=== PATIENT | male | born 1940 | race Caucasian/White ===

== ENCOUNTER → 2020-03-02 | Outpatient (CLI) | payer MEDICARE ==
[2020-03-02 11:08] LABS: African American GFR (CKD) >90 (>60 ml/min/1.73 sqM); Anion Gap 6 mmol/L; Blood Urea Nitrogen 14 mg/dL (9-20); Carbon Dioxide 26 mmol/L (22-30); Chloride 105 mmol/L (98-107); Non-African American GFR(CKD) >90 (>60 ml/min/1.73 sqM); Potassium 4.6 mmol/L (3.5-5.1); Sodium 137 mmol/L (137-145)
[2020-03-02 11:10] LABS: Anisocytosis Moderate; HCT 36.6 % (39.0-53.0); HGB 11.9 gm/dL (13.0-17.5); Hypochromasia Slight; MCH 35.6 pg (25.0-35.0); MCHC 32.7 g/dL (31.0-37.0); MCV 108.9 fL (80.0-100.0); Macrocytosis Marked; Mean Platelet Volume 8.4; Platelet Count 411 k/uL (150-450); RBC 3.36 m/uL (4.30-5.90); WBC 6.2 k/uL (3.8-10.6)
== END | disposition home or self-care (01) ==
LOC: LABPAT 10:12
PROVIDERS: ATTEND Internal Medicine Interventional Cardiology
DX: Z01.812 Encounter for preprocedural laboratory examination (principal); I25.10 Atherosclerotic heart disease of native coronary artery without angina pectoris
CPT/HCPCS: 36415; 80051; 82565; 84520; 85027

== ENCOUNTER 2020-03-09 09:19 | Day surgery (SDC) | payer BC, MEDICARE ==
[2020-03-06 15:34] VITALS: BMI 27.3
[~2020-03-09 09:19] MED LIST: ALPRAZolam 0.25 MG TAB PO PRN; ALPRAZolam 0.5 MG TAB PO PRN; ASPIRIN 325 MG TAB PO STA; ATORVASTATIN 80 MG TAB PO STA; NITROGLYCERIN SL TABS 0.4 MG TAB SUBLINGUAL PRN; SODIUM CHLORIDE 0.9% 1,000 ML in EMPTY BAG 1 BAG IV ONE
[2020-03-09 09:45] VITALS: RESP 16; TEMP 97.9
[2020-03-09] MEDS ORDERED: LIDOCAINE 1% INJ 10MG/ML (20 ML MDV) ONE (10:51)
[2020-03-09] MEDS ORDERED: VERAPAMIL 2.5 MG/ML 2 ML AMP ONE (10:51)
[2020-03-09] MEDS ORDERED: MIDAZOLAM 2 MG/2 ML VIAL IVP ONE (11:00)
[2020-03-09] MEDS ORDERED: HEPARIN SODIUM 1,000 UN/ML (10ML VL) ONE (11:00)
[2020-03-09] MEDS ORDERED: LIDOCAINE 1% INJ 10MG/ML (20 ML MDV) SQ ONE (11:05)
[2020-03-09] MEDS: VERAPAMIL SYRINGE (5 MG/10 ML) INTRAARTER ONE ×2 (11:06→11:26)
[2020-03-09] MEDS ORDERED: HEPARIN SODIUM 1,000 UN/ML (10ML VL) IV ONE (11:07)
[2020-03-09] MEDS ORDERED: IOPAMIDOL-370 100ML BTL INJ ONE (11:25)
[2020-03-09] MEDS ORDERED: SODIUM CHLORIDE 0.9% 1,000 ML IV SCH (11:45)
[2020-03-09 13:18] VITALS: BP 142/76; PULSE 60
--- NOTE | 2020-03-09 14:20 | P.GSCN ---
History of Present Illness Consult date: 03/09/20 Reason for Consult: Coronary artery disease Requesting physician: Zee Knowles History of present illness: This is a 79-year-old active gentleman who follows in the outpatient setting with Dr. Mccurdy. He has a previous medical history of coronary artery disease with acute inferior wall myocardial infarction in February 2002 with subsequent bare metal stent placement to the RCA, hypertension, hyperlipidemia, previous tobacco dependence, and family history of premature coronary artery disease with mother having open heart surgery at 60 years old. He has been following with Dr. Knowles from [facility] with echocardiograms and stress test. His most recent stress test in February demonstrated a moderate area of sheila-infarct ischemia which was new. The patient reports he had no symptoms with the exception of decreased energy over the last month. He denied any chest pain, shortness of breath, nausea, vomiting, lightheadedness, dizziness, claudication, or any other symptoms. 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 He was recommended to undergo heart catheterization which was completed today and which demonstrated proximal LAD stenosis 80%, mid LAD stenosis 70%, circumflex stenos is 90%, and RCA stenosis 95%. Of note, he stopped taking his medication including aspirin, statin, beta branden therapy approximately a year ago. Consultation was placed to Dr. Olivo from cardiothoracic surgery for surgical revascularization. Review of Systems Review of systems was completed and was negative except as noted in the HPI Past Medical History Past Medical History: Coronary Artery Disease (CAD), Hyperlipidemia, Hypertension, Myocardial Infarction ([place]), Osteoarthritis (OA) Additional Past Medical History / Comment(s): Precancerous skin lesion removed. Last Myocardial Infarction Date:: 2001 History of Any Multi-Drug Resistant Organisms: None Reported Past Surgical History: Heart Catheterization With Stent, Hernia Repair, Joint Replacement, Tonsillectomy Additional Past Surgical History / Comment(s): Precancerous skin lesion removed, right knee replacement, cyst removed, bilateral cataracts removed. Bare-metal stent placed to the RCA in February 2002 Past Anesthesia/Blood Transfusion Reactions: No Reported Reaction Past Psychological History: No Psychological Hx Reported Smoking Status: Former smoker Past Alcohol Use History: Rare Additional Past Alcohol Use History / Comment(s): Quit smoking 30-35 yrs ago. Past Drug Use History: None Reported - Past Family History Father Family Medical History: Cancer Mother Family Medical History: Cancer, Coronary Artery Disease (CAD) Medications and Allergies Home Medications Medication Instructions Recorded Confirmed Type Antioxident 1 tab PO DAILY 03/06/20 03/09/20 History Multivitamins, Thera [Multivitamin 2 tab PO DAILY 03/06/20 03/09/20 History (formulary)] Tamsulosin [Flomax] 0.4 mg PO DAILY 03/06/20 03/09/20 History Allergies Allergy/AdvReac Type Severity Reaction Status Date / Time codeine Allergy Headache/brain Verified 03/06/20 15:35 swelling Surgical - Exam Vital Signs Temp Pulse Resp BP Pulse Ox 97.9 F 68 16 142/73 96 03/09/20 09:44 03/09/20 09:44 03/09/20 09:44 03/09/20 09:44 03/09/20 09:44 - General well developed, well nourished, no distress, no pain - Eyes PERRL, normal ocular movement - ENT no hearing loss - Neck no masses, no bruits, trachea midline - Respiratory Lungs sounds clear bilaterally. Respirations even, nonlabored. Currently on room air with oxygen saturation 96%. No chest wall deformities. No clubbing or cyanosis present. - Cardiovascular S1, S2 present. Regular rate and rhythm, sinus rhythm on telemetry. Palpable peripheral pulses bilaterally. No edema present. No calf pain or tenderness noted. Varicosities noted to bilateral lower extremities. Right radial heart catheterization site with T band in place. - Abdomen Abdomen: soft, non tender, bowel sounds - Genitourinary Deferred - Rectum Deferred - Integumentary no rash, no growths - Neurologic normal coordination, normal sensation - Musculoskeletal normal posture - Psychiatric oriented to time, oriented to person, oriented to place, speech is normal, memory intact Assessment and Plan Assessment: 1. Significant triple-vessel coronary artery disease 2. History of CAD with acute IWMI in February 2002, BMS placement to RCA 3. Hypertension 4. Hyperlipidemia 5. Previous tobacco dependence 6. Family history of premature coronary artery disease Plan: The patient was seen and examined in the extended stay unit. He was sitting up eating lunch having no distress whatsoever. Chart/diagnostics were reviewed. The usual perioperative course of open heart surgery was discussed in detail with the patient, all risks and benefits were reviewed, all questions were answered. The patient adamantly states he cannot have surgery until April as he is completely booked at work. The risk of waiting for surgery given the extensive nature of his coronary artery disease was discussed including the possibility of , the patient verbalizes understanding and continues to state he is not having surgery until at least April. We will obtain echocardiogram, carotid Dopplers, chest x-ray, and vein mapping. Recommend maximizing medication therapy with aspirin, statin, beta blockers. Will see the patient with Dr. Olivo and make further recommendations. Thank you Dr. Knowles for this consult, we look forward to working with you in the care of this patient. Time with Patient: Greater than 30
--- NOTE | 2020-03-09 14:42 | XR ---
EXAMINATION TYPE: XR chest 2V DATE OF EXAM: 03/09/2020 COMPARISON: NONE HISTORY: Shortness of breath TECHNIQUE: Frontal and lateral views of the chest are obtained. FINDINGS: Scattered senescent parenchymal changes noted. Hyperinflation compatible with COPD. No evidence for infiltrate. No evidence for atelectasis. Heart size is stable. Mediastinal structures are stable and grossly unremarkable. No evidence for hilar prominence. Degenerative changes dorsal spine. IMPRESSION: 1. No evidence for acute pulmonary disease.
--- NOTE | 2020-03-09 14:42 | US ---
EXAMINATION TYPE: US carotid duplex BILAT DATE OF EXAM: 03/09/2020 COMPARISON: NONE CLINICAL HISTORY: PRE CABG. pending open heart versus stenting, no h/o stroke EXAM MEASUREMENTS: RIGHT: Peak Systolic Velocity (PSV) cm/sec ----- Right CCA: 124 ----- Right ICA: 122 ----- Right ECA: 109 ICA/CCA ratio: 1.0 RIGHT: End Diastole cm/sec ----- Right CCA: 26 ----- Right ICA: 24 ----- Right ECA: 0 LEFT: Peak Systolic Velocity (PSV) cm/sec ----- Left CCA: 73.3 ----- Left ICA: 63.8 ----- Left ECA: 86.7 ICA/CCA ratio: 0.9 LEFT: End Diastole cm/sec ----- Left CCA: 18.5 ----- Left ICA: 19.1 ----- Left ECA: 12.8 VERTEBRALS (direction of flow): Right Vertebral: Antegrade Left Vertebral: Antegrade Rhythm: Normal Mild homogeneous plaque with no significant stenosis IMPRESSION: No evidence for hemodynamically significant stenosis. Criteria for Assigning % of Stenosis / Diameter reduction (Estimation based on the indirect measurements of the internal carotid artery velocities (ICA PSV). 1. Normal (no stenosis)=ICA PSV < 125 cm/s: ratio < 2.0: ICA EDV<40 cm/s. 2. Less than 50% stenosis=ICA PSV < 125 cm/s: ratio < 2.0: ICA EDV<40 cm/s. 3. 50 to 69% stenosis=ICA PSV of 125 to 230 cm/s: ration 2.0 ? 4.0: ICA EDV 40-100 cm/s. 4. Greater than 70% stenosis to near occlusion= ICA PSV > 230 cm/s: ratio > 4.0: ICA EDV > 100 cm/s. 5. Near occlusion= ICA PSV velocities may be low or undetectable: variable ratio and ICA EDV. 6. Total occlusion=unable to detect flow.
--- NOTE | 2020-03-09 15:32 | CC ---
CARDIAC CATHETERIZATION REPORT DATE OF SERVICE: 03/09/2020 PROCEDURE: Left heart catheterization, coronary angiography and left ventriculography. PERFORMED BY: Dr. Gianna Knowles. Moderate conscious sedation time was 23 minutes. Patient was administered Versed. Oxygen saturation, hemodynamics and EKG were monitored closely. CLINICAL INFORMATION: Mr. Anatoly Pereyra is a 79-year-old gentleman with a known history of CAD and hyperlipidemia. In February of 2002 he suffered from an acute inferior OH, received thrombolytic therapy and went on to have bare metal stenting of proximal RCA. Since then he had ejection fraction in the 45% to 50% range and has done well. Over the last few weeks he was having symptoms of exertional shortness of breath, chest tightness and decreased stamina. Stress test revealed a significant area of sheila-infarct ischemia in addition to a fixed defect in the inferior wall. Ejection fraction was in the 45% range. He was advised coronary angiography with concern that he may have progression of CAD. PROCEDURE NOTE: Under local anesthesia and strict aseptic precautions, a 6-Bolivian introducer was placed in the right radial artery. Using JL3.5 and JR4 catheters, I performed coronary angiography, and the same right catheter was used to check LV pressures, but LV gram was not performed. Following the procedure a TR band was applied as per protocol and saturation in the fingers of the right hand was 94%. The patient tolerated procedure well without complications. Results were discussed with the patient and also I spoke to his by phone. I recommended aortocoronary bypass surgery to be performed as soon as possible, and I left a message for cardiac surgeon Dr. Olivo. CARDIAC CATHETERIZATION FINDINGS: The left ventricular end-diastolic pressure was 15 mmHg without any gradient across the aortic valve. CORONARY ANGIOGRAPHY FINDINGS: RIGHT CORONARY ARTERY: This is a large dominant vessel. Ostium is open. No significant disease. The proximal portion has about 30% narrowing and then there is a long area of stented segment. Within the stented segment there is a 95% stenosis. Beyond it the caliber is good. It is a large vessel, supplies a sizable amount of myocardium. Some diffuse disease in the PDA. PLV is large and relatively disease-free. RCA therefore is a dominant vessel with in-stent restenosis of about 95%. LEFT MAIN CORONARY ARTERY: Short, patent vessel free of significant disease. It bifurcates into LAD and circumflex. LEFT ANTERIOR DESCENDING CORONARY ARTERY: This vessel has significant disease in the proximal portion best seen in the MARK cranial projection. At the origin of a small septal and diagonal branch there is an 80% eccentric lesion in a heavily calcified area, and beyond it the vessel improves in caliber, gives off a second diagonal branch, and after the diagonal branch there is another area of about 70% narrowing. The vessel has diffuse disease after that. It runs all the way to the apex. However, LAD is a graftable vessel. There is a proximal 80%, mid 60% to 70% lesion in a heavily calcified vessel. LEFT POSTERIOR CIRCUMFLEX CORONARY ARTERY: This is a technically nondominant vessel. It gives off a good-sized obtuse marginal branch and this obtuse marginal branch has a significant stenosis of about 80% to 90% in the proximal portion as it comes off from the circumflex. FINAL IMPRESSION: This patient has significant triple-vessel disease. There is in-stent restenosis of a previously stented RCA which was an infarct-related vessel 18 years ago. There is 95% proximal RCA disease, 80% proximal LAD disease, and the circumflex marginal has another 80% to 90% stenosis. The filling pressures are mildly elevated. There was no gradient across the aortic valve. RECOMMENDATIONS: I am recommending aortocoronary bypass surgery with a graft to the LAD and diagonal. In view of the mid LAD disease, two grafts are advised. I am also recommending grafts to the distal RCA and circumflex marginal, both of which are graftable vessels. The LAD is a heavily calcified vessel with a significant area of disease in the proximal portion. I left a message for Dr. Olivo, who will hopefully see the patient today and review the angiograms. I also talked to the patient at length and spoke to his daughter by phone. I am recommending 4-vessel bypass surgery for this patient to be performed as soon as possible. Same medical regimen. I will obtain echocardiogram and a carotid Doppler today. MMODL / IJN: [id number] /
--- NOTE | 2020-03-09 18:57 | ECHOF ---
Referral Reason:PRE CABG MEASUREMENTS -------- HEIGHT: 170.2 cm WEIGHT: 81.2 kg BP: 142/73 RVIDd: 3.6 cm (< 3.3) IVSd: 1.4 cm (0.6 - 1.1) LVIDd: 4.7 cm (3.9 - 5.3) LVPWd: 1.5 cm (0.6 - 1.1) IVSs: 1.8 cm LVIDs: 3.5 cm LVPWs: 1.9 cm LAESV Index (A-L): 38.02 ml/m Ao Diam: 3.2 cm (2.0 - 3.7) AV Cusp: 2.1 cm (1.5 - 2.6) MV EXCURSION: 24.198 mm (> 18.000) MV EF SLOPE: 197 mm/s (70 - 150) EPSS: 1.3 cm MV E Aayush: 0.78 m/s MV DecT: 154 ms MV A Aayush: 0.95 m/s MV E/A Ratio: 0.82 RAP: 5.00 mmHg RVSP: 25.59 mmHg FINDINGS -------- Resting bradycardia (HR<60bpm). This was a technically adequate study. The left ventricular size is normal. There is moderate concentric left ventricular hypertrophy. O verall left ventricular systolic function is mild-moderately impaired with, an EF between 40 - 45 %. Mitral Doppler inflow pattern suggests diastolic filling abnormality 12.47. The right ventricle is mildly enlarged. LA is moderately dilated 34-39 ml/m2 The right atrial size is normal. Interatrial and interventricular septum intact. There is moderate aortic valve sclerosis. There is no evidence of aortic regurgitation. There is no evidence of aortic stenosis. Mild mitral annular calcification present. Mild mitral regurgitation is present. Mild tricuspid regurgitation present. There is no evidence of pulmonary hypertension. The right v entricular systolic pressure, as measured by Doppler, is 25.59mmHg. There is no pulmonic regurgitation present. The aortic root size is normal. Normal inferior vena cava with normal inspiratory collapse consistent with estimated right atrial pre ssure of 5 mmHg. There is a trivial pericardial effusion present. CONCLUSIONS -------- 1. Resting bradycardia (HR<60bpm). 2. This was a technically adequate study. 3. The left ventricular size is normal. 4. There is moderate concentric left ventricular hypertrophy. 5. Overall left ventricular systolic function is mild-moderately impaired with, an EF between 40 - 45 %. 6. Mitral Doppler inflow pattern suggest diastolic filling abnormality 12.47. 7. The right ventricle is mildly enlarged. 8. LA is moderately dilated 34-39 ml/m2 9. The right atrial size is normal. 10. Interatrial and interventricular septum intact. 11. There is moderate aortic valve sclerosis. 12. There is no evidence of aortic regurgitation. 13. There is no evidence of aortic stenosis. 14. Mild mitral annular calcification present. 15. Mild mitral regurgitation is present. 16. Mild tricuspid regurgitation present. 17. There is no evidence of pulmonary hypertension. 18. The right ventricular systolic pressure, as measured by Doppler, is 25.59mmHg. 19. There is no pulmonic regurgitation present. 20. The aortic root size is normal. 21. Normal inferior vena cava with normal inspiratory collapse consistent with estimated right atrial pressure of 5 mmHg. 22. There is a trivial pericardial effusion present. CHEMIC MANGLER: Gali Del Angel RDCS
--- NOTE | 2020-03-15 13:48 | P.VSCSTY ---
Greater Saphenous Vein Mapping This is bilateral lower extremity greater saphenous vein mapping. Date of service: 03/09/2020 Vein quality and ultrasound appearance: We see no intraluminal thrombus or wall changes. Vein size groin right : 0.84 x 6 groin left: 0.85 x 7.2 High thigh right: 03.1 x 2.7 high thigh left: 4.6 x 4.2 Mid thigh right: 4.2 x 2.6 mid thigh left: 3.8 x 3.3 Above-knee right: 4.0 x 2.5 above-knee left: 4.6 x 3.1 Below knee right: 5.2 x 2.9 below-knee left: 4.5 x 3.3 Mid calf right: 2.6 x 1.9 mid calf left: 3.6 x 2.3 Ankle right: 3.4 x 2.7 ankle left: 3.6 x 2.3 Impression: Usable bilateral greater saphenous vein. Mid calf has an area of rather small vein..
== END 2020-03-09 17:15 | disposition home or self-care (01) ==
LOC: CATHCVL 09:19
PROVIDERS: ATTEND Internal Medicine Interventional Cardiology
DX: I25.110 Atherosclerotic heart disease of native coronary artery with unstable angina pectoris (principal); T82.855A Stenosis of coronary artery stent, initial encounter; I10 Essential (primary) hypertension; I25.2 Old myocardial infarction; E78.5 Hyperlipidemia, unspecified; M19.90 Unspecified osteoarthritis, unspecified site; Z95.5 Presence of coronary angioplasty implant and graft; Z98.890 Other specified postprocedural states; Z90.89 Acquired absence of other organs; Z96.651 Presence of right artificial knee joint; Z98.41 Cataract extraction status, right eye; Z98.42 Cataract extraction status, left eye; Z87.891 Personal history of nicotine dependence; Z79.899 Other long term (current) drug therapy; Z88.5 Allergy status to narcotic agent; Z82.49 Family history of ischemic heart disease and other diseases of the circulatory system; Z80.9 Family history of malignant neoplasm, unspecified
CPT/HCPCS: 93306; 93458; 71046; 93970; 93880; C1769; C1894; J2250; J2001; J1644; Q9967

== ENCOUNTER → 2020-03-31 | Outpatient (CLI) | payer MEDICARE ==
[2020-03-31 09:49] LABS: Anisocytosis Slight; HCT 36.2 % (39.0-53.0); HGB 11.7 gm/dL (13.0-17.5); MCH 33.9 pg (25.0-35.0); MCHC 32.3 g/dL (31.0-37.0); MCV 105.1 fL (80.0-100.0); Macrocytosis Marked; Mean Platelet Volume 8.5; Platelet Count 412 k/uL (150-450); RBC 3.44 m/uL (4.30-5.90); RDW 19.6 % (11.5-15.5); WBC 6.7 k/uL (3.8-10.6)
[2020-03-31 09:54] LABS: Partial Thromboplastin Time 23.1 sec (22.0-30.0); Prothrombin Time 10.1 sec (9.0-12.0)
[2020-03-31 10:04] LABS: ALT 36 U/L (4-49); AST 28 U/L (17-59); African American GFR (CKD) >90 (>60 ml/min/1.73 sqM); Alkaline Phosphatase 53 U/L (38-126); Anion Gap 7 mmol/L; Blood Urea Nitrogen 19 mg/dL (9-20); Calcium 8.9 mg/dL (8.4-10.2); Carbon Dioxide 28 mmol/L (22-30); Chloride 104 mmol/L (98-107); Cholesterol 114 mg/dL (<200); Glucose 103 mg/dL (74-99); HDL Cholesterol 63 mg/dL (40-60); LDL Cholesterol,Calculated 39 mg/dL (0-99); Non-African American GFR(CKD) 87 (>60 ml/min/1.73 sqM); Potassium 4.5 mmol/L (3.5-5.1); Sodium 139 mmol/L (137-145); Total Bilirubin 1.3 mg/dL (0.2-1.3); Total Protein 6.2 g/dL (6.3-8.2); Triglycerides 58 mg/dL (<150)
[2020-03-31 10:32] LABS: Appearance,Urine Clear (Clear); Bilirubin,Urine Negative (Negative); Blood,Urine Negative (Negative); Color,Urine Light Yellow; Glucose,Urine (UA) Negative (Negative); Ketones,Urine Negative (Negative); Leukocyte Esterase,Urine Negative (Negative); Nitrite,Urine Negative (Negative); PH, Urine 6.5 (5.0-8.0); Protein,Urine Negative (Negative); Specific Gravity,Urine 1.008 (1.001-1.035); Urobilinogen,Urine <2.0 mg/dL (<2.0)
--- NOTE | 2020-03-31 11:20 | P.PN ---
Progress Note - Text Progress Note Date: 03/31/20 5 meter walk test completed: #1 4.23 sec #2 4.53 sec #3 4.13 sec Patient completed without difficulty.
[2020-03-31 17:22] LABS: Hepatitis A Antibody IgM Non-Reactive (Non-Reactive); Hepatitis B Core IgM Non-Reactive (Non-Reactive); Hepatitis B Surface Antigen Non-Reactive (Non-Reactive); Hepatitis C IgG Antibody Non-Reactive (Non-Reactive)
[2020-03-31 18:21] LABS: Hemoglobin A1C 5.2 % (4.0-6.0)
--- NOTE | 2020-04-05 14:00 | P.ARTDOP ---
Arterial Doppler Bilateral radial artery study: Reason for study: Preop CABG Date of study: 03/31/2020 Doppler assessment shows no significant right to left or segmental pressure gradient. Digital plethysmography with radial artery compression shows no significant pressure changes on either side. Imaging shows the right radial to be 4.9 x 5.0 mm proximal, 3.8 x 3.8 mm mid and 3.3 x 4.0 mm distal. The left radial is 4.2 x 4.2 mm proximally, 3.6 x 3.2 mm mid, and 3.1 x 4.1 mm distally. Impression: Usable bilateral radial arteries.
== END | disposition home or self-care (01) ==
LOC: LABPAT 07:35
PROVIDERS: ATTEND Surgery
DX: I25.10 Atherosclerotic heart disease of native coronary artery without angina pectoris (principal)
CPT/HCPCS: 94150; 80061; 80053; 80074; 84443; 83735; 85027; 85610; 85730; 81003; 87070; 87086; 83036; 93930; 93923; 93005; 36415; U0003; C9803

== ENCOUNTER 2020-04-05 08:00 | Inpatient (IN) | payer MEDICARE ==
[2020-04-13] MEDS ORDERED: ceFAZolin 2,000 MG in SODIUM CHLORIDE 0.9% 30 ML IVPB ONE ×4 (05:00)
[2020-04-13] MEDS ORDERED: NITROGLYCERIN-D5W PMX 25 MG/250 ML BTL IV ONE (05:00)
[2020-04-13] MEDS ORDERED: DEXTROSE 5% IN WATER 1,000 ML with POTASSIUM CHLORIDE 25 MEQ, SODIUM CHLORIDE 2.5MEQ/ML... IRRIGATION ONE ×6 (05:00)
[2020-04-13] MEDS ORDERED: PAPAVERINE 360 MG in SODIUM CHLORIDE 0.9% 90 ML IV ONE (05:00)
[2020-04-13] MEDS ORDERED: METOPROLOL TARTRATE 12.5 MG TAB PO ONE (05:00)
[2020-04-13] MEDS ORDERED: NITROGLYCERIN-D5W PMX 50 MG in DEXTROSE/WATER 1 250ML.BAG IV ONE (05:00)
[2020-04-13] MEDS ORDERED: ALBUMIN HUMAN 5% 500 ML IVPB ONE (05:00)
[2020-04-13] MEDS ORDERED: LACTATED RINGERS 1,000 ML IV ONE (05:00)
[2020-04-13] MEDS ORDERED: PHENYLEPHRINE 40 MG in SODIUM CHLORIDE 0.9% 250 ML IV ONE (05:00)
[2020-04-13] MEDS ORDERED: ALBUMIN HUMAN 25% 50 ML IV ONE (05:00)
[2020-04-13] MEDS ORDERED: propofoL 1,000 MG/100 ML VIAL IV ONE (05:00)
[2020-04-13] MEDS ORDERED: PROTAMINE SULFATE 250 MG in EMPTY BAG 1 BAG IV ONE (05:00)
[2020-04-13] MEDS ORDERED: HEPARIN SODIUM 1,000 UN/ML (10ML VL) IV ONE (05:00)
[2020-04-13] MEDS ORDERED: DEXTROSE 5% IN WATER 1,000 ML with POTASSIUM CHLORIDE 110 MEQ, MAGNESIUM SULFATE 16 MEQ... IV ONE ×5 (05:00)
[2020-04-13] MEDS ORDERED: ceFAZolin 1,000 MG in SODIUM CHLORIDE 0.9% IRRIGATIO 1,000 ML IRRIGATION ONE (05:00)
[2020-04-13] MEDS ORDERED: ATORVASTATIN 10 MG TAB PO ONE (05:00)
[2020-04-13] MEDS ORDERED: SODIUM BICARB 8.4% 50 ML SYR (1 MEQ/ML) IV ONE (05:00)
[2020-04-13] MEDS ORDERED: MANNITOL 25% 12.5 GM/50 ML VIAL IV ONE (05:00)
[2020-04-13] MEDS ORDERED: SODIUM CHLORIDE 0.9% 1,000 ML IV ONE (05:00)
[2020-04-13] MEDS ORDERED: TRANEXAMIC ACID 2,000 MG in SODIUM CHLORIDE 0.9% 80 ML IV ONE (05:00)
[2020-04-13] MEDS ORDERED: CALCIUM CHLORIDE 100 MG/ML 10 ML SYRINGE IV ONE (05:00)
[2020-04-13] MEDS ORDERED: NOREPINEPHRINE 4 MG in SODIUM CHLORIDE 0.9% 250 ML IV ONE (05:00)
[2020-04-13] MEDS ORDERED: HEPARIN SODIUM,PORCINE 5,000 UNIT in SODIUM CHLORIDE 0.9% 500 ML 500 ML IV ONE (05:00)
[2020-04-13] MEDS ORDERED: DILTIAZEM 125 MG in SODIUM CHLORIDE 0.9% 100 ML IV ONE (05:00)
[2020-04-13] MEDS ORDERED: CLEVIDIPINE BUTYRATE 25 MG in EMPTY BAG 1 BAG IV ONE (05:00)
[2020-04-13] MEDS ORDERED: ASPIRIN 325 MG TAB PO ONE (05:00)
[2020-04-13] MEDS ORDERED: MAGNESIUM SULFATE MG 500 MG/ML IV ONE (05:00)
[2020-04-13] MEDS ORDERED: PHENYLEPHRINE 10 MG/ML VIAL IV ONE (05:00)
[2020-04-13] MEDS ORDERED: INSULIN REGULAR 100 UNIT in SODIUM CHLORIDE 0.9% 100 ML IV ONE (05:00)
[2020-04-13] MEDS ORDERED: PROTAMINE SULFATE 10 MG/ML 25 ML VIAL IV ONE ×2 (05:00→07:29)
[2020-04-13] MEDS ORDERED: CHLORHEXIDINE GLUCONATE 15 ML CUP MUCOUS MEM ONE (05:00)
[2020-04-13] MEDS ORDERED: LIDOCAINE 1% (10MG/ML) FOR IV START INTRADERMA ONE (06:00)
[2020-04-13 06:03] LABS: Glucose,Whole Blood 95 mg/dL (75-99)
[2020-04-13] MEDS ORDERED: HEPARIN SODIUM,PORCINE 10,000 UNIT/ML 1 ML VIAL ONE (07:29)
[2020-04-13] MEDS ORDERED: fentaNYL (PF) 50 MCG/ML 50 ML VIAL ONE (07:29)
[2020-04-13] MEDS ORDERED: TRANEXAMIC ACID 1,000 MG/10 ML VIAL ONE (07:29)
[2020-04-13] MEDS ORDERED: PROPOFOL 10 MG/ML 20 ML VIAL IV ONE (07:29)
[2020-04-13] MEDS ORDERED: fentaNYL (PF) 50 MCG/ML 2 ML AMP ONE (07:29)
[2020-04-13] MEDS ORDERED: NITROGLYCERIN-D5W PMX 50 MG/250 ML BOTTLE IV ONE (07:29)
[2020-04-13] MEDS ORDERED: SODIUM CHLORIDE 0.9% 250 ML BAG ONE (07:29)
[2020-04-13] MEDS ORDERED: SODIUM CHLORIDE 0.9% IRRIG 1,000 ML BTL IRRIGATION ONE (07:29)
[2020-04-13] MEDS ORDERED: ELECTROLYTE-R (PH 7.4) 1,000 ML IV.SOLN IV ONE (07:29)
[2020-04-13] MEDS ORDERED: ALBUMIN HUMAN 5% (25gm) 500 ML VIAL IVPB ONE (07:29)
[2020-04-13] MEDS ORDERED: MIDAZOLAM 2 MG/2 ML VIAL ONE (07:29)
[2020-04-13] MEDS ORDERED: ePHEDrine SULFATE/0.9% NACL/PF 50 MG/5 ML SYRINGE IV ONE (07:29)
[2020-04-13] MEDS ORDERED: VECURONIUM 10 MG VIAL IV ONE (07:29)
[2020-04-13] MEDS ORDERED: LIDOCAINE 2% SYG (PF) 100 MG/5 ML ONE (07:29)
[2020-04-13 08:39] LABS: ABG Base Excess 2.4 mmol/L; ABG Glucose Whole Blood 86 mg/dL (75-99); ABG HCO3 27 mmol/L (21-25); ABG Hematocrit 32 % (34.0-46.0); ABG Ionized Calcium 4.8 mg/dL (4.5-5.3); ABG Lactic Acid Whole Blood 0.9 mmol/L (0.5-1.6); ABG PCO2 42 mmHg (35-45); ABG PH 7.42 (7.35-7.45); ABG PO2 357 mmHg (83-108); ABG Sodium Whole Blood 140 mmol/L (135-146); ABG TCO2 29 mmol/L (19-24)
--- NOTE | 2020-04-13 10:06 | P.ANPRN ---
Procedure Note - Anesthesia - Invasive Line Right Central Line Time Out Performed: Yes (710) Date of Procedure: 04/13/20 Time of Procedure: 07:11 Location of Patient: Phase I Preparation: Sterile Prep Arterial Line Location: Radial Ultrasound Used: Yes Purpose - Visualization and Identification of Vasculature: Yes Needle Guage: 18g angio Image Stored and Saved: Yes Narrative: Central line placement per sterile protocol utilized. +local +angio +CVP +Jwire +uneventful dilation and introduction right IJ cordis Right [place] Deonna Time Out Performed: Yes (710) Date of Procedure: 04/13/20 Time of Procedure: 07:19 Location of Patient: Phase I Preparation: Sterile Prep Arterial Line Location: Radial Ultrasound Used: Yes Purpose - Visualization and Identification of Vasculature: Yes Image Stored and Saved: Yes Narrative: Central line placement per sterile protocol utilized. [place] floated in sheath maintaining sterile protocol. wedge 57cm w/d to 52 cm. PA pressure 21/7
[2020-04-13 10:59] LABS: ABG Base Excess 0.8 mmol/L; ABG Glucose Whole Blood 118 mg/dL (75-99); ABG HCO3 25 mmol/L (21-25); ABG Hematocrit 28 % (34.0-46.0); ABG Oxygen Saturation 99.8 % (94-97); ABG PCO2 39 mmHg (35-45); ABG PH 7.42 (7.35-7.45); ABG PO2 243 mmHg (83-108); ABG TCO2 27 mmol/L (19-24)
[2020-04-13 12:07] LABS: ABG Base Excess -0.2 mmol/L; ABG Glucose Whole Blood 205 mg/dL (75-99); ABG HCO3 24 mmol/L (21-25); ABG Lactic Acid Whole Blood 0.8 mmol/L (0.5-1.6); ABG PCO2 37 mmHg (35-45); ABG PH 7.43 (7.35-7.45); ABG Potassium Whole Blood 5.9 mmol/L (3.4-4.5); ABG Sodium Whole Blood 132 mmol/L (135-146); ABG TCO2 25 mmol/L (19-24)
[2020-04-13 12:43] LABS: ABG Base Excess -1.8 mmol/L; ABG Glucose Whole Blood 178 mg/dL (75-99); ABG HCO3 24 mmol/L (21-25); ABG Hematocrit 25 % (34.0-46.0); ABG Ionized Calcium 4.3 mg/dL (4.5-5.3); ABG Lactic Acid Whole Blood 1.7 mmol/L (0.5-1.6); ABG Oxygen Saturation 99.9 % (94-97); ABG PCO2 41 mmHg (35-45); ABG PH 7.36 (7.35-7.45); ABG PO2 246 mmHg (83-108); ABG Potassium Whole Blood 4.2 mmol/L (3.4-4.5); ABG Sodium Whole Blood 136 mmol/L (135-146); ABG TCO2 25 mmol/L (19-24)
[2020-04-13 13:11] LABS: ABG Base Excess -2.7 mmol/L; ABG Glucose Whole Blood 165 mg/dL (75-99); ABG HCO3 23 mmol/L (21-25); ABG Hematocrit 25 % (34.0-46.0); ABG Ionized Calcium 4.3 mg/dL (4.5-5.3); ABG PCO2 41 mmHg (35-45); ABG PH 7.35 (7.35-7.45); ABG PO2 377 mmHg (83-108); ABG Potassium Whole Blood 4.4 mmol/L (3.4-4.5); ABG Sodium Whole Blood 136 mmol/L (135-146); ABG TCO2 24 mmol/L (19-24)
[2020-04-13 14:59] LABS: ABG Ionized Calcium 4.6 mg/dL (4.5-5.3); ABG Lactic Acid Whole Blood 0.7 mmol/L (0.5-1.6); ABG Potassium Whole Blood 3.9 mmol/L (3.4-4.5); ABG Sodium Whole Blood 139 mmol/L (135-146)
[2020-04-13 15:00] LABS: ABG PO2 >420 mmHg (83-108)
[2020-04-13 15:01] LABS: ABG Hematocrit 20 % (34.0-46.0)
[2020-04-13 15:02] LABS: ABG Lactic Acid Whole Blood 2.5 mmol/L (0.5-1.6)
[2020-04-13 15:06] LABS: ABG Base Excess -0.3 mmol/L; ABG Glucose Whole Blood 99 mg/dL (75-99); ABG HCO3 25 mmol/L (21-25); ABG Ionized Calcium 4.5 mg/dL (4.5-5.3); ABG Oxygen Saturation 99.3 % (94-97); ABG PCO2 40 mmHg (35-45); ABG PO2 157 mmHg (83-108); ABG Potassium Whole Blood 4.1 mmol/L (3.4-4.5); ABG Sodium Whole Blood 139 mmol/L (135-146); ABG TCO2 26 mmol/L (19-24)
[2020-04-13 15:11] LABS: ABG Lactic Acid Whole Blood 2.5 mmol/L (0.5-1.6)
[2020-04-13 15:12] LABS: ABG Hematocrit 24 % (34.0-46.0)
[2020-04-13] MEDS ORDERED: NITROGLYCERIN-D5W PMX 50 MG in DEXTROSE/WATER 1 250ML.BAG IV SCH (15:20)
[2020-04-13] MEDS ORDERED: Magnesium Replacement Protocol 1 EACH MISC MISCELLANE PRN (15:20)
[2020-04-13] MEDS ORDERED: METOCLOPRAMIDE 5 MG/ML 2 ML VIAL IVP PRN (15:20)
[2020-04-13] MEDS ORDERED: IPRATROPIUM-ALBUTEROL 3 ML NEB INHALATION PRN (15:20)
[2020-04-13] MEDS ORDERED: INSULIN REGULAR 100 UNIT in SODIUM CHLORIDE 0.9% 100 ML IV SCH (15:20)
[2020-04-13] MEDS ORDERED: BENZOCAINE/MENTHOL LOZENG 1 EACH LOZENGE MUCOUS MEM PRN (15:20)
[2020-04-13] MEDS ORDERED: CALCIUM GLUCONATE 2 GM in SODIUM CHLORIDE 0.9% 100 ML IVPB PRN (15:20)
[2020-04-13] MEDS ORDERED: hydrALAZINE HCL 20 MG/ML 1 ML VIAL IVP PRN (15:20)
[2020-04-13] MEDS ORDERED: MORPHINE SULFATE 2 MG/ML SYRINGE IVP PRN (15:20)
[2020-04-13] MEDS ORDERED: DEXMEDETOMIDINE/0.9% NACL(PMX) 400 MCG in EMPTY BAG 1 BAG IV SCH (15:20)
[2020-04-13] MEDS ORDERED: Phosphorus Replacement Protoco 1 EACH MISC MISCELLANE PRN (15:20)
[2020-04-13] MEDS ORDERED: AMIODARONE 360 MG in DEXTROSE 5% IN WATER 200 ML IV PRN ×2 (15:20)
[2020-04-13] MEDS ORDERED: Potassium Replacement Protocol 1 EACH MISC MISCELLANE PRN (15:20)
[2020-04-13] MEDS: SODIUM CHLORIDE 0.9% 1,000 ML IV SCH (15:30)
[2020-04-13] MEDS ORDERED: MUPIROCIN 2% OINT 22 GM TUBE NASAL ONE (15:45)
--- NOTE | 2020-04-13 15:52 | P.CNPUL ---
History of Present Illness Consult date: 04/13/20 Requesting physician: Charles Olivo Reason for consult: other Chief complaint: Fatigue History of present illness: 79-year-old male patient of Dr. Mccurdy, with past medical history of coronary artery disease with previous stenting of the RCA, history of LA, hypertension, hyperlipidemia, previous tobacco dependence, family history of premature coronary artery disease, osteoarthritis, who follows with Dr. FRANK Knowles from [facility]. Currently patient was having symptoms of fatigue and decreased energy in the last several weeks. He had outpatient stress test in February that showed a moderate area of infarct ischemia. Patient did not have any other symptoms, no chest pain or shortness of breath, no palpitations, lightheadedness. He underwent heart catheterization on 03/09/2020 which found proximal LAD stenosis of 80%, mid LAD stenosis of 70%, circumflex stenosis of 90% and RCA stenosis of 95%. Patient was referred to CT surgery for myocardial revascularization surgery, and today on 04/13/2020 patient underwent CABG 3 with KEANE to the LAD, left radial artery graft to the OM, SVG to the PDA, SVG to the diagonal, with endoscopic vein harvest, and exclusion of the left atrial appendage with 35 mm Atriclip. Patient is seen in the postoperative period in the intensive care unit, he is intubated, and sedated on mechanical ventilator, on SIMV mode of ventilation with a rate of 12, tidal vital 500, FiO2 of 100% and PEEP of 5. Lactate of Ringer's infusing at 50 ML per hour, levofed is at 10 mics per minute, Diprivan is at 10 mics per kilo per minute, nitroglycerin is at 5 mics per kilo per minute. Patient is paced at AAI with a rate of 80 BPM, he has 1 set of atrial wires in place. He has 2 mediastinal and left pleural chest tube and there is 130 mL of serosanguineous output in the mediastinal chest tubes, and 60 mL from the left pleural chest tube, postoperative chest x-ray is pending. PA pressure is 20/12, CVP is 8, cardiac output is 6.9 and cardiac inde x is 3.6. Review of Systems All systems: negative Constitutional: Reports fatigue, Denies chills, Denies fever Eyes: denies blurred vision, denies pain Ears, nose, mouth and throat: Denies headache, Denies sore throat Cardiovascular: Denies chest pain, Denies shortness of breath Respiratory: Denies cough Gastrointestinal: Denies abdominal pain, Denies diarrhea, Denies nausea, Denies vomiting Musculoskeletal: Denies myalgias Integumentary: Denies pruritus, Denies rash Neurological: Denies numbness, Denies weakness Psychiatric: Denies anxiety, Denies depression Endocrine: Denies fatigue, Denies weight change Past Medical History Past Medical History: Coronary Artery Disease (CAD), Hyperlipidemia, Hypertension, Myocardial Infarction (LA), Osteoarthritis (OA) Additional Past Medical History / Comment(s): fatigues easily Last Myocardial Infarction Date:: 2001 History of Any Multi-Drug Resistant Organisms: None Reported Past Surgical History: Heart Catheterization With Stent, Hernia Repair, Joint Replacement, Tonsillectomy Additional Past Surgical History / Comment(s): Precancerous skin lesion removed, right knee replacement, cyst removed, bilateral cataracts removed. Bare-metal stent placed to the RCA in February 2002 Past Anesthesia/Blood Transfusion Reactions: No Reported Reaction Date of Last Stent Placement:: 2001 Smoking Status: Former smoker Medications and Allergies Home Medications Medication Instructions Recorded Confirmed Type Antioxident 1 tab PO DAILY 03/06/20 04/13/20 History Multivitamins, Thera [Multivitamin 2 tab PO DAILY 03/06/20 04/13/20 History (formulary)] Tamsulosin [Flomax] 0.4 mg PO DAILY 03/06/20 04/13/20 History Aspirin 81 mg PO DAILY 03/31/20 04/13/20 History Atorvastatin [Lipitor] 80 mg PO DAILY 03/31/20 04/13/20 History Metoprolol Tartrate [Lopressor] 12.5 mg PO DAILY 03/31/20 04/13/20 History Mupirocin 2% Oint [Bactroban 2% 1 applic NASAL BID #1 tube 03/31/20 04/13/20 Rx Oint] Aspirin 364 mg PO ONCE 04/13/20 04/13/20 History Allergies Allergy/AdvReac Type Severity Reaction Status Date / Time codeine Allergy Headache/brain Verified 04/13/20 05:47 swelling Physical Exam Vitals: Vital Signs Temp Pulse Resp BP BP Pulse Ox 04/13/20 06:00 97.8 F 62 16 136/73 124/63 95 Intake and Output 08/01/2504/13/20 04/13/20 22:59 06:59 14:59 Intake Total 200 598 Balance 200 598 Intake: IV 200 33 Blood Product 565 Ffp 24 Cpd Unit 284 [id number] Ffp 24 Cpd Unit 0 [id number] Platelet Pheresis Acd-A 281 Pasc 1 Unit [id number] Other: Weight 82 kg GENERAL EXAM: Sedated, intubated a 79-year-old white male, comfortable in no apparent distress. HEAD: Normocephalic/atraumatic. EYES: Normal reaction of pupils, equal size. Conjunctiva pink, sclera white. NOSE: Clear with pink turbinates. THROAT: No erythema or exudates. NECK: No masses, no JVD, no thyroid enlargement, no adenopathy. CHEST: No chest wall deformity. Symmetrical expansion. Midsternal incision is clean dry and intact, chest tube sites are clean dry and intact, Atrial wires connected to a external pacemaker box, and patient is being paced with AAI with a rate of 80 BPM, 2 mediastinal, and left pleural chest tubes without evidence of air leak, with 130 mL of thin serosanguineous output from the 2 mediastinal chest tubes, and 60 mL of servicing was output from the left pleural chest tube LUNGS: Equal air entry with no crackles, wheeze, rhonchi or dullness. CVS: Regular rate and rhythm, normal S1 and S2, no gallops, no murmurs, no rubs ABDOMEN: Soft, nontender. No hepatosplenomegaly, normal bowel sounds, no guard ing or rigidity. EXTREMITIES: No clubbing, no edema, no cyanosis, 2+ pulses and upper and lower extremities. MUSCULOSKELETAL: Muscle strength and tone normal. SPINE: No scoliosis or deformity SKIN: No rashes, bilateral lower extremities are Jair wrapped, left radial incision is covered with surgical dressing with a JANES drain in place, with small amount of sanguinous output, and left leg saphenous vein graft site is covered with a surgical dressing, JANES drain is in place with small amount of single and is output CENTRAL NERVOUS SYSTEM: Sedated No focal deficits, tone is normal in all 4 extremities. Results - Laboratory Findings Abnormal lab findings: Abnormal Labs 03/31/20 04/10/20 09:00 10:06 Crossmatch See Detail See Detail - Diagnostic Findings Chest x-ray: report reviewed, image reviewed Assessment and Plan Plan: Assessment: #1. Significant triple vessel coronary artery disease, status post four-vessel coronary artery bypass grafting with KEANE to the LAD, left radial arterial graft to the OM, SVG to the PDA, SVG to the diagonal, with left radial artery harvest, left lower extremity endoscopic vein harvest, and exclusion of the left atrial appendage with 35mm Atriclip, postoperative day 0 today on 04/13/2020. OR exit time 1528 #2. Routine postoperative ventilator management #3. Coronary artery disease with previous history of PCI and stenting of the RCA #4. 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 Hypertension #7. Hyperlipidemia #8. Osteoarthritis Plan: Patient is doing well, will continue close hemodynamic monitoring in the intensive care unit. Postoperative blood gas labs and chest x-ray pending. We will wean sedation, and with the patient is awake and following commands we'll proceed with spontaneous breathing trials and extubation per protocol. Daily chest x-rays, and blood work. Monitor chest tube output, monitor cardiac rhythm, and a urine output, provide incentive spirometer after extubation, encourage deep breathing and coughing. GI and DVT prophylaxis per CT surgery, nebulized bronchodilators while the patient is on the vent. We'll continue to follow I performed a history & physical examination of the patient and discussed their management with my nurse practitioner, Amanda Hercules. I reviewed the nurse practitioner's note and agree with the documented findings and plan of care. Lung sounds are positive for diminished breath sounds. The findings and the impression was discussed with the patient. I attest to the documentation by the nurse practitioner. Time with Patient: Greater than 30
[2020-04-13 15:57] LABS: Glucose,Whole Blood 112 mg/dL (75-99)
[2020-04-13 16:11] LABS: ABG HCO3 27 mmol/L (21-25); ABG Oxygen Saturation 99.8 % (94-97); ABG PCO2 51 mmHg (35-45); ABG PH 7.33 (7.35-7.45); ABG PO2 339 mmHg (83-108); ABG TCO2 29 mmol/L (19-24)
[2020-04-13] MEDS: IPRATROPIUM-ALBUTEROL 3 ML NEB INHALATION SCH ×3 (16:17→20:39)
[2020-04-13 16:28] LABS: Allen Test Performed? NO
[2020-04-13] MEDS: CLEVIDIPINE BUTYRATE 25 MG in EMPTY BAG 1 BAG IV SCH (16:41)
[2020-04-13 16:43] LABS: INR 1.3 (<1.2); Partial Thromboplastin Time 30.7 sec (22.0-30.0); Prothrombin Time 12.6 sec (9.0-12.0)
[2020-04-13] MEDS: NOREPINEPHRINE 4 MG in SODIUM CHLORIDE 0.9% 250 ML IV SCH (16:43)
[2020-04-13 16:46] LABS: Anisocytosis Moderate; HCT 27.4 % (39.0-53.0); Hypochromasia Slight; MCH 33.8 pg (25.0-35.0); MCHC 31.7 g/dL (31.0-37.0); MCV 106.5 fL (80.0-100.0); Macrocytosis Marked; Mean Platelet Volume 8.4; Platelet Count 241 k/uL (150-450); RBC 2.58 m/uL (4.30-5.90); RDW 20.2 % (11.5-15.5)
[2020-04-13 16:54] LABS: Glucose,Whole Blood 106 mg/dL (75-99)
[2020-04-13 16:58] LABS: HGB 8.7 gm/dL (13.0-17.5)
[2020-04-13 17:01] LABS: ALT 20 U/L (4-49); AST 43 U/L (17-59); African American GFR (CKD) >90 (>60 ml/min/1.73 sqM); Albumin 2.2 g/dL (3.5-5.0); Alkaline Phosphatase 31 U/L (38-126); Anion Gap 2 mmol/L; Blood Urea Nitrogen 18 mg/dL (9-20); Calcium 7.9 mg/dL (8.4-10.2); Carbon Dioxide 26 mmol/L (22-30); Chloride 108 mmol/L (98-107); Glucose 89 mg/dL (74-99); Magnesium 2.5 mg/dL (1.6-2.3); Non-African American GFR(CKD) >90 (>60 ml/min/1.73 sqM); Potassium 4.1 mmol/L (3.5-5.1); Sodium 136 mmol/L (137-145); Total Bilirubin 1.2 mg/dL (0.2-1.3); Total Protein 3.7 g/dL (6.3-8.2)
[2020-04-13] MEDS: ACETAMINOPHEN IV (For NPO) 1,000 MG in EMPTY BAG 1 BAG IVPB SCH ×2 (17:05→23:12)
--- NOTE | 2020-04-13 17:08 | XR ---
EXAMINATION: XR chest 1V portable-supine DATE AND TIME: 04/13/2020 4:01 PM CLINICAL INDICATION: PHH; Post Operative Cardiac Surgery TECHNIQUE: AP portable supine COMPARISON: 03/09/2020 2:21 PM FINDINGS: Post-CABG appearance with sternal sutures, mediastinal clips, mediastinal drains, and cardiac valve p rosthesis. ET tube tip superimposed over the distal trachea, 2 cm above the melanie. NG tube has a serpentine course, with tip appearing to be superimposed over the fundus and with port superimposed over the expected position of the gastric cardia. Right IJ [place] catheter tip superimposed over the proximal RPA. Left chest tube in place, with soft tissue emphysema noted lateral to the left ribs. EKG leads. There is no evidence of pneumothorax or other abnormal gas collection. The right lung is clear and right pleural space is negative as seen. There are small bands of added opacity in the left midlung zone consistent with subsegmental atelecta sis. The upper lung zone is clear and well-expanded. The lower lung zone cannot be visualized due to left lower lobe and partial lingular atelectasis. Mildly enlarged cardiac silhouette evident, AP projection noted. Bones and soft tissues negative for acute findings except already mentioned soft tissue emphysema lat eral to the left thorax. IMPRESSION: 1. Postsurgical baseline chest with support lines and catheters as detailed. 2. Left lower lobe atelectasis.
[2020-04-13 17:38] LABS: Band Neutrophils % 12 %; Metamyelocytes % 1 %; Neutrophils % (M) 81 %; Nucleated Red Blood Cells 3 /100 WBC (0-0); Total Cells Counted 200
[2020-04-13 17:39] LABS: Eosinophils # (M) 0.23 k/uL (0-0.7); Lymphocytes # (M) 1.14 k/uL (1.0-4.8); Metamyelocytes # (M) 0.23 k/uL (0); Monocytes # (M) 0.46 k/uL (0-1.0); WBC 22.8 k/uL (3.8-10.6)
[2020-04-13 17:41] LABS: RBC Fragments Present
[2020-04-13 18:04] LABS: Glucose,Whole Blood 140 mg/dL (75-99)
[2020-04-13 18:30] LABS: Glucose,Whole Blood 136 mg/dL (75-99)
[2020-04-13 18:55] LABS: ABG Base Excess -0.8 mmol/L; ABG HCO3 25 mmol/L (21-25); ABG PCO2 45 mmHg (35-45); ABG PH 7.35 (7.35-7.45); ABG PO2 170 mmHg (83-108); ABG TCO2 26 mmol/L (19-24)
[2020-04-13 18:55] LABS: Glucose,Whole Blood 144 mg/dL (75-99)
[2020-04-13 19:00] LABS: Allen Test Performed? no
[2020-04-13 19:15] LABS: Anisocytosis Moderate; Hypochromasia Slight; MCH 34.2 pg (25.0-35.0); MCHC 32.4 g/dL (31.0-37.0); MCV 105.8 fL (80.0-100.0); Macrocytosis Marked; Mean Platelet Volume 8.9; Platelet Count 259 k/uL (150-450); RBC 2.64 m/uL (4.30-5.90); WBC 23.3 k/uL (3.8-10.6)
[2020-04-13 20:06] LABS: Glucose,Whole Blood 141 mg/dL (75-99)
[2020-04-13 20:54] LABS: Band Neutrophils % 13 %; Lymphocytes # (M) 1.17 k/uL (1.0-4.8); Monocytes # (M) 0.93 k/uL (0-1.0); Neutrophils % (M) 79 %; Nucleated Red Blood Cells 0 /100 WBC (0-0); Total Cells Counted 200
[2020-04-13 20:56] LABS: Target Cells Present
[2020-04-13 21:03] LABS: Glucose,Whole Blood 137 mg/dL (75-99)
[2020-04-13] MEDS: ALBUMIN HUMAN 5% 250 ML in EMPTY BAG 1 BAG IVPB PRN ×2 (21:58→23:43)
[2020-04-13 22:09] LABS: Glucose,Whole Blood 145 mg/dL (75-99)
[2020-04-13 22:32] LABS: Anisocytosis Moderate; HCT 27.5 % (39.0-53.0); HGB 8.8 gm/dL (13.0-17.5); Hypochromasia Slight; MCH 34.3 pg (25.0-35.0); MCV 107.3 fL (80.0-100.0); Macrocytosis Marked; Mean Platelet Volume 9.8; Platelet Count 266 k/uL (150-450); RBC 2.56 m/uL (4.30-5.90); RDW 20.3 % (11.5-15.5); WBC 18.5 k/uL (3.8-10.6)
[2020-04-13 22:51] LABS: Band Neutrophils % 14 %; Lymphocytes # (M) 0.74 k/uL (1.0-4.8); Metamyelocytes # (M) 0.37 k/uL (0); Metamyelocytes % 2 %; Monocytes # (M) 0.74 k/uL (0-1.0); Neutrophils % (M) 76 %; Nucleated Red Blood Cells 0 /100 WBC (0-0); Total Cells Counted 100
[2020-04-13 22:52] LABS: Target Cells Present
[2020-04-13 22:54] LABS: Basophilic Stippling Present
[2020-04-13 23:03] LABS: Glucose,Whole Blood 141 mg/dL (75-99)
--- NOTE | 2020-04-13 23:11 | OP ---
OPERATIVE REPORT DATE OF THE SURGERY: 04/13/2020. SURGEON: Dr. Charles Olivo. CARD ASSEMBLER: Carole Sahu, Karan Gustafson. PREOPERATIVE DIAGNOSES: Triple-vessel coronary artery disease, status post remote inferior wall myocardial infarction with RCA stent, mild to moderate left ventricular dysfunction, mild mitral valve regurgitation, hypertension, hyperlipidemia. POSTOPERATIVE DIAGNOSES: Triple-vessel coronary artery disease, status post remote inferior wall myocardial infarction with RCA stent, mild to moderate left ventricular dysfunction, mild mitral valve regurgitation, hypertension, hyperlipidemia. 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 PROCEDURE PERFORMED: 1. Quadruple coronary artery bypass grafting using the left internal mammary artery to the left anterior descending artery, the left radial artery from the aorta to the obtuse marginal artery, reverse saphenous vein graft from the aorta to the diagonal artery, reverse saphenous vein graft from the aorta to the junction of the RCA to the posterior descending artery. 2. Exclusion of the left atrial appendage using a 35 mm AtriClip. 3. Endoscopic harvesting of the left radial artery. 4. Endoscopic harvesting of the left greater saphenous vein. 5. Intraoperative transesophageal echocardiogram and epiaortic scanning. 6. Intraoperative graft flow measurements using the Medistim system. INDICATION FOR SURGERY: The patient is a 79-year-old gentleman who was seen as an outpatient, had been worked up for shortness of breath and found to have triple-vessel disease. He has a remote history of inferior wall myocardial infarction and RCA stent in 2001. The patient is brought in today for elective coronary artery bypass grafting. The patient was on chronic Plavix and he failed to stop it. Discussion was carried with him and being that his [place]onna and arterial line were already placed, decision was made to proceed with surgery understanding that there might be increased risk of bleeding and requirement for blood products. That was also discussed with Dr. Chilel, his primary care physician, and we all agreed to proceed. The STS risk was discussed with him. He understood it and agreed to proceed. DESCRIPTION OF PROCEDURE: The patient in supine position. Right internal jugular [place]-Deonna catheter and a right radial arterial line were placed. Cardiac index was 2, PA pressure was 40/15. Subsequently he was brought to the operating room where general endotracheal anesthesia was induced uneventfully. Grimm catheter was inserted. The chest, abdomen, both lower extremities and the left upper extremity were prepped and draped using ChloraPrep. Ioban was used to cover the skin. Patient received 2 g of cefazolin intravenously. Transesophageal echocardiogram confirmed the preoperative finding of [id number] left ventricular dysfunction with mild mitral valve regurgitation. A midline sternotomy was performed and the bone was moderately osteoporotic. The left hemisternum was elevated and left internal mammary artery was harvested in a semi skeletonized fashion. The left pleura was intentionally opened in this process and was drained with a 19-Chilean Demetrio drain. No bone wax was used but only bone seal and Ralph. In the same setting, the left radial artery was initially exposed of the wrist and clamping trial revealed preserved signal in the left index O2 saturation probe. Subsequently was harvested endoscopically without using a tourniquet. The forearm incision was closed over a drain. The radial artery was prepared by incising the fascia all along its volar aspect. It was of excellent diameter around 3 mm in diameter and had a very mild wall disease in it made in its distal third. Also in the same setting, the left greater saphenous vein was harvested endoscopically from groin to above ankle level. The branches were tied. The leg incisions were closed over a drain. We had 2 good segment of vein of around 4 mm in diameter each that were used. Mediastinal fat was transected between 2 ties and epiaortic scanning revealed dilated aorta, but no protruding atheroma. Pericardium was opened in an inverted T- fashion and a pericardial cradle was created. Findings included a moderately dilated aorta that was measured at around 4.2 cm, displacing the heart inferiorly and laterally. There was some visible coronary artery disease in the LAD and the RCA system. After placement of respective pledgeted pursestring and after systemic heparinization, aortic cannulation in the proximal arch with a 21-Chilean soft flow cannula and venous cannulation via the right atrial appendage with a 3-stage 29-Chilean cannula was performed. Antegrade as well as retrograde cardioplegia catheter were placed. Cardiopulmonary bypass was initiated and with the heart empty and beating we looked at the target. The LAD had skipped disease in it up to the distal part. In one area between 2 plaques was selected for bypass. The last diagonal artery was also identified and there was 1 spot that was soft for bypass. Because the lateral wall was identified obtuse marginal artery that needed to be bypassed nicely by the inferior aspect of the left atrial appendage and was soft at that time. On the ICA system, there was some wall disease at the bifurcation and the proximal PA was soft and decision was made to proceed with an overlapping anastomosis between the distal RCA and the proximal PDA. Aorta was clamped gently and myocardial protection was achieved with initial dose of 1 L of antegrade cold blood cardioplegia with adequate arrest at home and 50 mL followed by 300 mL of retrograde cold blood cardioplegia. All subsequent doses were given retrograde at 15 minutes intervals. We started by excluding the left atrial appendage using a 35 mm AtriClip deployed at its base. Subsequently, the 1st distal anastomosis between the left radial artery and the 1.7 mm soft proximal aspect of the obtuse marginal artery was performed using Prolene 7-0 in continuous fashion. The 2nd distal anastomosis was seen a segment of vein and the last and lowest diagonal artery were the spot where it was around 1.5 mm in diameter, soft, using Prolene 7-0 in continuous fashion. The 3rd distal anastomosis was seen a segment of vein of good quality and the junction of the RCA into the PDA using Prolene 7-0 in continuous fashion. The fourth and last distal anastomosis was to the left internal mammary artery in situ and the mid to distal aspect of the left anterior descending artery between 2 plaques where it was around 1.5 mm in diameter using Prolene 7- 0 in continuous fashion. Satisfied with the distal anastomosis, rewarming was started as we punched out 3 buttons of the ascending aorta and performed the 3 proximal anastomosis of the 2 vein graft and the radial artery separate eased to the aorta. The patient was given lidocaine and magnesium. De-airing maneuvers were followed. With the head in Trendelenburg position, we unclamped the aorta. The patient regained spontaneous sinus rhythm of around 1 minute of reperfusion. The anastomosis was hemostatic. However, I elected to spray FloSeal everywhere in view of the patient recent and chronic Plavix intake. Two monopolar atrial pacing wires were affixed to the pursestring on the right atrium. No ventricular pacing wire was placed to minimize risk of bleeding. After a period of reperfusion, we were able to wean off cardiopulmonary bypass without the need of any inotropic or vasopressor support. IMANI showed the same LV function. All sectors were started and test dose and full dose protamine was given. We gave the patient 6 units of platelets and 2 units FFP. Decannulation followed. Hemostasis was satisfactory. Two nineteen-Chilean Demetrio drains were left substernally. A groove was made in the left pleuropericardial fat to accommodate the mammary artery medial to the lung and away from the posterior sternal table. Pericardial fat was approximated loosely over the aorta, the grafts and the right ventricle. After ensuring adequate hemostasis and hemodynamic and after correct sponge, instrument, and needle count, the sternum was closed using 5 [id number] pineal cable after interposing fibular between the sternal edges. Thorough irrigation of cefazolin followed. The rest of the closure proceeded in layers. Skin glue was applied. Patient received 6 units of platelets and 2 units of FFP as well as 560 mL of Cell Saver blood. He was transferred to the ICU in stable condition with a cardiac index of 3, PA 27/13, atrially paced 80 for optimal hemodynamics in view of sinus bradycardia at 60, CVP of 7, mean artery pressure of 65. MMODL / IJN: [id number] / [facility] HEALTHJose De Jesus
[2020-04-13] MEDS: HEPARIN SODIUM,PORCINE 5,000 UNIT/ML 1 ML VIAL SQ SCH ×2 (23:12→23:30)
--- NOTE | 2020-04-13 23:36 | P.CONS ---
History of Present Illness - Reason for Consult Consult date: 04/13/20 Medical management Requesting physician: Charles Olivo - Chief Complaint Post 4 vessel CABG, postop respiratory failure on mechanical ventilation, h - History of Present Illness 79-year-old male one of my office patient with long-standing history of CAD post IA with history of PCI and stent placement of the right coronary artery disease over 10 years ago who is known to have history of hypertension hyperlipidemia and previous history of tobacco dependency patient has been doing natural management for many years has become slightly bit symptomatic lately with significant shortness of breath and decrease endurance when attempted to walk and ambulate was seen Dr. FRANK patel and end up going for stress test showed moderate area of infarct ischemic change patient ended up going for heart cath on 03/09/2020 finding was consistent with 80 percentile blockage of the LAD, 70% blockage in the mid LAD, 90% blockage of the circumflex and 95% blockage of the RCA. Patient was seen cardiothoracic surgeon and plan for bypass surgery with surgery scheduled for today ended up having 4 vessel bypass surgery and was sent to the ICU on mechanical ventilation. Patient otherwise hemodynamically stable has 2 mediastinal and left pleural tube in place has been draining some. Review of Systems CONSTITUTIONAL: Well-developed sedated on mechanical ventilation. EYES: No icterus sclerae, no conjunctivitis. EARS, NOSE, MOUTH, THROAT, and FACE: No sore throat, lymphadenopathy, carotid bruits or deformity. RESPIRATORY: On mechanical ventilation. And 3 chest tubes in. CARDIOVASCULAR: 4 vessel CABG with incision looks fine. GASTROINTESTINAL: No Abd pain, Nausea or vomiting, no Diarrhea or constipation, No GI Bleed, no distention or masses. GENITOURINARY: Negative for Hematuria or UTI, no kidney stones. INTEGUMENT/BREAST: Negative for any muscular injury with mild osteoarthritis.. HEMATOLOGIC/LYMPHATIC: Negative for bleed or purpura. MUSCULOSKELTAL: Negative for Myalgia or arthralgia. NEURLOGICAL: Sedated on mechanical ventilation is still awaking for pain stimuli. BEHAVIORAL/PSYCH: Negative. ENDOCRINE: Negative. Past Medical History Past Medical History: Coronary Artery Disease (CAD), Hyperlipidemia, Hypertension, Myocardial Infarction (IA), Osteoarthritis (OA) Additional Past Medical History / Comment(s): fatigues easily Last Myocardial Infarction Date:: 2001 History of Any Multi-Drug Resistant Organisms: None Reported Past Surgical History: Heart Catheterization With Stent, Hernia Repair, Joint Replacement, Tonsillectomy Additional Past Surgical History / Comment(s): Precancerous skin lesion removed, right knee replacement, cyst removed, bilateral cataracts removed. Bare-metal stent placed to the RCA in February 2002 Past Anesthesia/Blood Transfusion Reactions: No Reported Reaction Date of Last Stent Placement:: 2001 Smoking Status: Former smoker Medications and Allergies Home Medications Medication Instructions Recorded Confirmed Type Antioxident 1 tab PO DAILY 03/06/20 04/13/20 History Multivitamins, Thera [Multivitamin 2 tab PO DAILY 03/06/20 04/13/20 History (formulary)] Tamsulosin [Flomax] 0.4 mg PO DAILY 03/06/20 04/13/20 History Aspirin 81 mg PO DAILY 03/31/20 04/13/20 History Atorvastatin [Lipitor] 80 mg PO DAILY 03/31/20 04/13/20 History Metoprolol Tartrate [Lopressor] 12.5 mg PO DAILY 03/31/20 04/13/20 History Mupirocin 2% Oint [Bactroban 2% 1 applic NASAL BID #1 tube 03/31/20 04/13/20 Rx Oint] Aspirin 364 mg PO ONCE 04/13/20 04/13/20 History Allergies Allergy/AdvReac Type Severity Reaction Status Date / Time codeine Allergy Headache/brain Verified 04/13/20 05:47 swelling Physical Exam Vitals: Vital Signs Temp Pulse Pulse Resp BP BP BP 04/13/20 22:15 85 11 L 103/72 04/13/20 22:00 86 11 L 103/72 04/13/20 21:45 95 16 103/72 04/13/20 21:30 88 11 L 103/72 04/13/20 21:15 81 11 L 103/72 04/13/20 21:00 97.9 F 79 10 L 103/72 04/13/20 20:47 88 04/13/20 20:45 86 15 103/72 04/13/20 20:40 78 04/13/20 20:30 86 11 L 103/72 04/13/20 20:15 95 18 103/72 04/13/20 20:00 93 11 L 04/13/20 19:45 91 16 04/13/20 19:30 93 13 124/67 04/13/20 19:15 93 17 124/67 04/13/20 19:00 76 7 L 04/13/20 18:45 86 13 04/13/20 18:30 87 15 04/13/20 18:15 86 14 04/13/20 18:00 81 12 04/13/20 17:45 78 17 04/13/20 17:30 70 20 04/13/20 17:15 67 20 04/13/20 17:00 81 23 04/13/20 16:45 70 20 04/13/20 16:30 70 20 04/13/20 16:25 73 04/13/20 16:17 70 04/13/20 16:15 70 13 04/13/20 16:00 97.7 F 70 12 124/72 04/13/20 15:45 38 H 127/73 04/13/20 15:31 79 14 04/13/20 06:00 97.8 F 62 16 136/73 124/63 Pulse Ox 04/13/20 22:15 98 04/13/20 22:00 97 04/13/20 21:45 96 04/13/20 21:30 97 04/13/20 21:15 98 04/13/20 21:00 97 04/13/20 20:47 04/13/20 20:45 98 04/13/20 20:40 04/13/20 20:30 97 04/13/20 20:15 97 04/13/20 20:00 97 04/13/20 19:45 94 L 04/13/20 19:30 96 04/13/20 19:15 97 04/13/20 19:00 99 04/13/20 18:45 99 04/13/20 18:30 99 04/13/20 18:15 100 04/13/20 18:00 100 04/13/20 17:45 99 04/13/20 17:30 100 04/13/20 17:15 100 04/13/20 17:00 99 04/13/20 16:45 99 04/13/20 16:30 99 04/13/20 16:25 04/13/20 16:17 04/13/20 16:15 100 04/13/20 16:00 100 04/13/20 15:45 04/13/20 15:31 04/13/20 06:00 95 Intake and Output 04/13/20 04/13/20 04/14/20 14:59 22:59 06:59 Intake Total 598 1367.257 1.852 Output Total 4250 1250 Balance -3652 117.257 1.852 Intake: IV 33 777.5 ACETAMINOPHEN IV (For NPO 100 ) 1,000 mg In Empty Bag 1 bag @ 400 mls/hr IVPB Q6HR [facility] Rx#:[id number] CO/CI 190 Nitroglycerin-D5w Pmx 50 10.5 mg In Dextrose/Water 1 250ml.bag @ 5 MCG/MIN 1.5 mls/hr IV .Q24H [facility] Rx#: [id number] Pressure Bags 27 Sodium Chloride 0.9% 1, 350 000 ml @ 50 mls/hr IV . Q20H [facility] Rx#:[id number] ceFAZolin 2 gm In Sodium 100 Chloride 0.9% 50 ml @ 100 mls/hr IVPB Q8HR [facility] Rx# :[id number] Intake, IV Titration 272.757 1.852 Amount Albumin Human 5% 250 ml 250 In Empty Bag 1 bag @ 250 mls/hr IVPB Q1HR PRN Rx#: [id number] Insulin Regular 100 unit 6.767 1.852 In Sodium Chloride 0.9% 100 ml @ Per Protocol IV .Q0M [facility] Rx#:[id number] propofoL 1,000 mg In 15.99 Empty Bag 1 bag @ Titrate IV .Q0M [facility] Rx#: [id number] Blood Product 565 317 Ffp 24 Cpd Unit 284 [id number] Ffp 24 Cpd Unit 0 317 [id number] Platelet Pheresis Acd-A 281 Pasc 1 Unit [id number] Output: Chest Tube Drainage 805 Bilateral Mediastinal 430 Left 375 Drainage 60 Left Arm 20 Left Calf 40 Urine 1250 385 Estimated Blood Loss 3000 Other: Voiding Method Indwelling Catheter ABP, PAP, CO, CI - Last 8 Hours Arterial Blood Pressure 98/49 Arterial Blood Pressure 95/48 Arterial Blood Pressure 97/51 Arterial Blood Pressure 105/61 Arterial Blood Pressure 112/58 Arterial Blood Pressure 111/54 Arterial Blood Pressure 119/57 Arterial Blood Pressure 117/54 Arterial Blood Pressure 126/57 Arterial Blood Pressure 238/54 Arterial Blood Pressure 114/50 Arterial Blood Pressure 108/50 Arterial Blood Pressure 127/52 Arterial Blood Pressure 134/58 Arterial Blood Pressure 122/59 Arterial Blood Pressure 134/55 Arterial Blood Pressure 130/54 Arterial Blood Pressure 127/51 Arterial Blood Pressure 111/48 Arterial Blood Pressure 81/45 Arterial Blood Pressure 123/48 Arterial Blood Pressure 128/31 Arterial Blood Pressure 141/60 Arterial Blood Pressure 141/60 Pulmonary Artery Pressure 24/13 Pulmonary Artery Pressure 22/13 Pulmonary Artery Pressure 24/16 Pulmonary Artery Pressure 28/18 Pulmonary Artery Pressure 30/19 Pulmonary Artery Pressure 27/13 Pulmonary Artery Pressure 27/16 Pulmonary Artery Pressure 29/17 Pulmonary Artery Pressure 30/18 Pulmonary Artery Pressure 32/13 Pulmonary Artery Pressure 28/14 Pulmonary Artery Pressure 28/14 Pulmonary Artery Pressure 28/13 Pulmonary Artery Pressure 27/14 Pulmonary Artery Pressure 28/14 Pulmonary Artery Pressure 29/15 Pulmonary Artery Pressure 31/16 Pulmonary Artery Pressure 27/13 Pulmonary Artery Pressure 27/12 Pulmonary Artery Pressure 29/14 Pulmonary Artery Pressure 27/13 Pulmonary Artery Pressure 33/10 Pulmonary Artery Pressure 34/17 Pulmonary Artery Pressure 34/17 Cardiac Output 4.2 Cardiac Output 5.5 Cardiac Output 5.8 Cardiac Output 5.7 Cardiac Output 5.7 Cardiac Output 6.1 Cardiac Output 6.4 Cardiac Output 7 Cardiac Index 2.2 Cardiac Index 2.8 Cardiac Index 3 Cardiac Index 2.9 Cardiac Index 2.9 Cardiac Index 3.1 Cardiac Index 3.3 Cardiac Index 3.6 General Appearance: Sedated on mechanical ventilation with ET tube in place. Neck HEENT: Supple, no lymphadenopathy, no thyroid enlargement, no carotid bruits. Lungs: Decreased breath sound the left side upon mild expiratory wheezes with rhonchi. Chest Wall: Incision on the chest wall looks fine with no sign of bleeding, 2 mediastinal and left pleural chest tube. Heart: Regular rate and rhythm, S1, S2 normal, no murmur, rub or gallop. Back: Symmetric, no curvature, ROM normal, no CVA tenderness. Abdomen: Soft, non-tender, bowel sounds active all four quadrants, no masses, no organomegaly. Extremities: Trace edema and decreased pulses bilaterally. Pulses: 2+ and symmetric. Skin: Skin color, texture, tugor normal, no rashes or lesions. Neurologic: Mildly sedated on mechanical ventilation still able to withdraw leaves for extremity to pain stimuli. Results CBC & Chem 7: 04/13/20 22:10 04/13/20 15:50 Labs: Abnormal Lab Results - Last 24 Hours (Table) 04/10/20 04/13/20 04/13/20 Range/Units 10:06 08:43 11:03 WBC (3.8-10.6) k/uL RBC (4.30-5.90) m/uL Hgb (13.0-17.5) gm/dL Hct (39.0-53.0) % MCV (80.0-100.0) fL RDW (11.5-15.5) % Neutrophils # (Manual) (1.3-7.7) k/uL Lymphocytes # (Manual) (1.0-4.8) k/uL Metamyelocytes # (Man) (0) k/uL Nucleated RBCs (0-0) /100 WBC Macrocytosis PT (9.0-12.0) sec INR (<1.2) APTT (22.0-30.0) sec Fibrinogen (200-500) mg/dL ABG pH (7.35-7.45) ABG pCO2 (35-45) mmHg ABG pO2 357 H 243 H (83-108) mmHg ABG HCO3 27 H (21-25) mmol/L ABG Total CO2 29 H 27 H (19-24) mmol/L ABG O2 Saturation 100.0 H 99.8 H (94-97) % ABG Hematocrit 32 L 28 L (34.0-46.0) % ABG Sodium (135-146) mmol/L ABG Potassium (3.4-4.5) mmol/L ABG Ionized Calcium (4.5-5.3) mg/dL ABG Glucose 118 H (75-99) mg/dL ABG Lactic Acid (0.5-1.6) mmol/L Hemoglobin 10.3 L 9.1 L (13.0-17.5) gm/dL Sodium (137-145) mmol/L Chloride (98-107) mmol/L Creatinine (0.66-1.25) mg/dL POC Glucose (mg/dL) (75-99) mg/dL Calcium (8.4-10.2) mg/dL Magnesium (1.6-2.3) mg/dL Alkaline Phosphatase (38-126) U/L Total Protein (6.3-8.2) g/dL Albumin (3.5-5.0) g/dL Arterial Blood Potassium (3.4-4.5) mmol/L Arterial Blood Glucose 118 H (75-99) mg/dL Crossmatch See Detail 04/13/20 04/13/20 04/13/20 Range/Units 12:10 12:47 13:15 WBC (3.8-10.6) k/uL RBC (4.30-5.90) m/uL Hgb (13.0-17.5) gm/dL Hct (39.0-53.0) % MCV (80.0-100.0) fL RDW (11.5-15.5) % Neutrophils # (Manual) (1.3-7.7) k/uL Lymphocytes # (Manual) (1.0-4.8) k/uL Metamyelocytes # (Man) (0) k/uL Nucleated RBCs (0-0) /100 WBC Macrocytosis PT (9.0-12.0) sec INR (<1.2) APTT (22.0-30.0) sec Fibrinogen (200-500) mg/dL ABG pH (7.35-7.45) ABG pCO2 (35-45) mmHg ABG pO2 >420 H 246 H 377 H (83-108) mmHg ABG HCO3 (21-25) mmol/L ABG Total CO2 25 H 25 H (19-24) mmol/L ABG O2 Saturation 100.0 H 99.9 H 100.0 H (94-97) % ABG Hematocrit 20 L* 25 L 25 L (34.0-46.0) % ABG Sodium 132 L (135-146) mmol/L ABG Potassium 5.9 H (3.4-4.5) mmol/L ABG Ionized Calcium 4.0 L 4.3 L 4.3 L (4.5-5.3) mg/dL ABG Glucose 205 H 178 H 165 H (75-99) mg/dL ABG Lactic Acid 1.7 H 2.5 H* (0.5-1.6) mmol/L Hemoglobin 6.4 L* 8.1 L 8.2 L (13.0-17.5) gm/dL Sodium (137-145) mmol/L Chloride (98-107) mmol/L Creatinine (0.66-1.25) mg/dL POC Glucose (mg/dL) (75-99) mg/dL Calcium (8.4-10.2) mg/dL Magnesium (1.6-2.3) mg/dL Alkaline Phosphatase (38-126) U/L Total Protein (6.3-8.2) g/dL Albumin (3.5-5.0) g/dL Arterial Blood Potassium 5.9 H (3.4-4.5) mmol/L Arterial Blood Glucose 205 H 178 H 165 H (75-99) mg/dL Crossmatch 04/13/20 04/13/20 04/13/20 Range/Units 15:10 15:20 15:50 WBC (3.8-10.6) k/uL RBC (4.30-5.90) m/uL Hgb (13.0-17.5) gm/dL Hct (39.0-53.0) % MCV (80.0-100.0) fL RDW (11.5-15.5) % Neutrophils # (Manual) (1.3-7.7) k/uL Lymphocytes # (Manual) (1.0-4.8) k/uL Metamyelocytes # (Man) (0) k/uL Nucleated RBCs (0-0) /100 WBC Macrocytosis PT (9.0-12.0) sec INR (<1.2) APTT (22.0-30.0) sec Fibrinogen 117 L (200-500) mg/dL ABG pH 7.33 L (7.35-7.45) ABG pCO2 51 H (35-45) mmHg ABG pO2 157 H 339 H (83-108) mmHg ABG HCO3 27 H (21-25) mmol/L ABG Total CO2 26 H 29 H (19-24) mmol/L ABG O2 Saturation 99.3 H 99.8 H (94-97) % ABG Hematocrit 24 L (34.0-46.0) % ABG Sodium (135-146) mmol/L ABG Potassium (3.4-4.5) mmol/L ABG Ionized Calcium (4.5-5.3) mg/dL ABG Glucose (75-99) mg/dL ABG Lactic Acid 2.5 H* (0.5-1.6) mmol/L Hemoglobin 8.0 L (13.0-17.5) gm/dL Sodium (137-145) mmol/L Chloride (98-107) mmol/L Creatinine (0.66-1.25) mg/dL POC Glucose (mg/dL) (75-99) mg/dL Calcium (8.4-10.2) mg/dL Magnesium (1.6-2.3) mg/dL Alkaline Phosphatase (38-126) U/L Total Protein (6.3-8.2) g/dL Albumin (3.5-5.0) g/dL Arterial Blood Potassium (3.4-4.5) mmol/L Arterial Blood Glucose (75-99) mg/dL Crossmatch 04/13/20 04/13/20 04/13/20 Range/Units 15:50 15:50 15:50 WBC 22.8 H (3.8-10.6) k/uL RBC 2.58 L (4.30-5.90) m/uL Hgb 8.7 L D (13.0-17.5) gm/dL Hct 27.4 L (39.0-53.0) % MCV 106.5 H (80.0-100.0) fL RDW 20.2 H (11.5-15.5) % Neutrophils # (Manual) 21.20 H (1.3-7.7) k/uL Lymphocytes # (Manual) (1.0-4.8) k/uL Metamyelocytes # (Man) 0.23 H (0) k/uL Nucleated RBCs 3 H (0-0) /100 WBC Macrocytosis Marked A PT 12.6 H (9.0-12.0) sec INR 1.3 H (<1.2) APTT 30.7 H (22.0-30.0) sec Fibrinogen (200-500) mg/dL ABG pH (7.35-7.45) ABG pCO2 (35-45) mmHg ABG pO2 (83-108) mmHg ABG HCO3 (21-25) mmol/L ABG Total CO2 (19-24) mmol/L ABG O2 Saturation (94-97) % ABG Hematocrit (34.0-46.0) % ABG Sodium (135-146) mmol/L ABG Potassium (3.4-4.5) mmol/L ABG Ionized Calcium (4.5-5.3) mg/dL ABG Glucose (75-99) mg/dL ABG Lactic Acid (0.5-1.6) mmol/L Hemoglobin (13.0-17.5) gm/dL Sodium 136 L (137-145) mmol/L Chloride 108 H (98-107) mmol/L Creatinine 0.60 L (0.66-1.25) mg/dL POC Glucose (mg/dL) (75-99) mg/dL Calcium 7.9 L (8.4-10.2) mg/dL Magnesium 2.5 H (1.6-2.3) mg/dL Alkaline Phosphatase 31 L (38-126) U/L Total Protein 3.7 L (6.3-8.2) g/dL Albumin 2.2 L (3.5-5.0) g/dL Arterial Blood Potassium (3.4-4.5) mmol/L Arterial Blood Glucose (75-99) mg/dL Crossmatch 04/13/20 04/13/20 04/13/20 Range/Units 15:55 16:52 18:02 WBC (3.8-10.6) k/uL RBC (4.30-5.90) m/uL Hgb (13.0-17.5) gm/dL Hct (39.0-53.0) % MCV (80.0-100.0) fL RDW (11.5-15.5) % Neutrophils # (Manual) (1.3-7.7) k/uL Lymphocytes # (Manual) (1.0-4.8) k/uL Metamyelocytes # (Man) (0) k/uL Nucleated RBCs (0-0) /100 WBC Macrocytosis PT (9.0-12.0) sec INR (<1.2) APTT (22.0-30.0) sec Fibrinogen (200-500) mg/dL ABG pH (7.35-7.45) ABG pCO2 (35-45) mmHg ABG pO2 (83-108) mmHg ABG HCO3 (21-25) mmol/L ABG Total CO2 (19-24) mmol/L ABG O2 Saturation (94-97) % ABG Hematocrit (34.0-46.0) % ABG Sodium (135-146) mmol/L ABG Potassium (3.4-4.5) mmol/L ABG Ionized Calcium (4.5-5.3) mg/dL ABG Glucose (75-99) mg/dL ABG Lactic Acid (0.5-1.6) mmol/L Hemoglobin (13.0-17.5) gm/dL Sodium (137-145) mmol/L Chloride (98-107) mmol/L Creatinine (0.66-1.25) mg/dL POC Glucose (mg/dL) 112 H 106 H 140 H (75-99) mg/dL Calcium (8.4-10.2) mg/dL Magnesium (1.6-2.3) mg/dL Alkaline Phosphatase (38-126) U/L Total Protein (6.3-8.2) g/dL Albumin (3.5-5.0) g/dL Arterial Blood Potassium (3.4-4.5) mmol/L Arterial Blood Glucose (75-99) mg/dL Crossmatch 04/13/20 04/13/20 04/13/20 Range/Units 18:29 18:51 18:54 WBC (3.8-10.6) k/uL RBC (4.30-5.90) m/uL Hgb (13.0-17.5) gm/dL Hct (39.0-53.0) % MCV (80.0-100.0) fL RDW (11.5-15.5) % Neutrophils # (Manual) (1.3-7.7) k/uL Lymphocytes # (Manual) (1.0-4.8) k/uL Metamyelocytes # (Man) (0) k/uL Nucleated RBCs (0-0) /100 WBC Macrocytosis PT (9.0-12.0) sec INR (<1.2) APTT (22.0-30.0) sec Fibrinogen (200-500) mg/dL ABG pH (7.35-7.45) ABG pCO2 (35-45) mmHg ABG pO2 170 H (83-108) mmHg ABG HCO3 (21-25) mmol/L ABG Total CO2 26 H (19-24) mmol/L ABG O2 Saturation 99.0 H (94-97) % ABG Hematocrit (34.0-46.0) % ABG Sodium (135-146) mmol/L ABG Potassium (3.4-4.5) mmol/L ABG Ionized Calcium (4.5-5.3) mg/dL ABG Glucose (75-99) mg/dL ABG Lactic Acid (0.5-1.6) mmol/L Hemoglobin (13.0-17.5) gm/dL Sodium (137-145) mmol/L Chloride (98-107) mmol/L Creatinine (0.66-1.25) mg/dL POC Glucose (mg/dL) 136 H 144 H (75-99) mg/dL Calcium (8.4-10.2) mg/dL Magnesium (1.6-2.3) mg/dL Alkaline Phosphatase (38-126) U/L Total Protein (6.3-8.2) g/dL Albumin (3.5-5.0) g/dL Arterial Blood Potassium (3.4-4.5) mmol/L Arterial Blood Glucose (75-99) mg/dL Crossmatch 04/13/20 04/13/20 04/13/20 Range/Units 18:56 20:04 21:01 WBC 23.3 H (3.8-10.6) k/uL RBC 2.64 L (4.30-5.90) m/uL Hgb 9.0 L (13.0-17.5) gm/dL Hct 28.0 L (39.0-53.0) % MCV 105.8 H (80.0-100.0) fL RDW 20.0 H (11.5-15.5) % Neutrophils # (Manual) 21.40 H (1.3-7.7) k/uL Lymphocytes # (Manual) (1.0-4.8) k/uL Metamyelocytes # (Man) (0) k/uL Nucleated RBCs (0-0) /100 WBC Macrocytosis Marked A PT (9.0-12.0) sec INR (<1.2) APTT (22.0-30.0) sec Fibrinogen (200-500) mg/dL ABG pH (7.35-7.45) ABG pCO2 (35-45) mmHg ABG pO2 (83-108) mmHg ABG HCO3 (21-25) mmol/L ABG Total CO2 (19-24) mmol/L ABG O2 Saturation (94-97) % ABG Hematocrit (34.0-46.0) % ABG Sodium (135-146) mmol/L ABG Potassium (3.4-4.5) mmol/L ABG Ionized Calcium (4.5-5.3) mg/dL ABG Glucose (75-99) mg/dL ABG Lactic Acid (0.5-1.6) mmol/L Hemoglobin (13.0-17.5) gm/dL Sodium (137-145) mmol/L Chloride (98-107) mmol/L Creatinine (0.66-1.25) mg/dL POC Glucose (mg/dL) 141 H 137 H (75-99) mg/dL Calcium (8.4-10.2) mg/dL Magnesium (1.6-2.3) mg/dL Alkaline Phosphatase (38-126) U/L Total Protein (6.3-8.2) g/dL Albumin (3.5-5.0) g/dL Arterial Blood Potassium (3.4-4.5) mmol/L Arterial Blood Glucose (75-99) mg/dL Crossmatch 04/13/20 04/13/20 04/13/20 Range/Units 22:07 22:10 23:01 WBC 18.5 H (3.8-10.6) k/uL RBC 2.56 L (4.30-5.90) m/uL Hgb 8.8 L (13.0-17.5) gm/dL Hct 27.5 L (39.0-53.0) % MCV 107.3 H (80.0-100.0) fL RDW 20.3 H (11.5-15.5) % Neutrophils # (Manual) 16.60 H (1.3-7.7) k/uL Lymphocytes # (Manual) 0.74 L (1.0-4.8) k/uL Metamyelocytes # (Man) 0.37 H (0) k/uL Nucleated RBCs (0-0) /100 WBC Macrocytosis Marked A PT (9.0-12.0) sec INR (<1.2) APTT (22.0-30.0) sec Fibrinogen (200-500) mg/dL ABG pH (7.35-7.45) ABG pCO2 (35-45) mmHg ABG pO2 (83-108) mmHg ABG HCO3 (21-25) mmol/L ABG Total CO2 (19-24) mmol/L ABG O2 Saturation (94-97) % ABG Hematocrit (34.0-46.0) % ABG Sodium (135-146) mmol/L ABG Potassium (3.4-4.5) mmol/L ABG Ionized Calcium (4.5-5.3) mg/dL ABG Glucose (75-99) mg/dL ABG Lactic Acid (0.5-1.6) mmol/L Hemoglobin (13.0-17.5) gm/dL Sodium (137-145) mmol/L Chloride (98-107) mmol/L Creatinine (0.66-1.25) mg/dL POC Glucose (mg/dL) 145 H 141 H (75-99) mg/dL Calcium (8.4-10.2) mg/dL Magnesium (1.6-2.3) mg/dL Alkaline Phosphatase (38-126) U/L Total Protein (6.3-8.2) g/dL Albumin (3.5-5.0) g/dL Arterial Blood Potassium (3.4-4.5) mmol/L Arterial Blood Glucose (75-99) mg/dL Crossmatch Assessment and Plan Assessment: 1 post triple vessel coronary disease post 4 vessel coronary artery bypass grafting with KEANE to the LAD, left radial arterial graft to the OM, SVG to the PDA, SVG to the diagonal with left radial artery harvest along with left lower extremity endoscopy Vein harvest. 2 post surgical respiratory failure on mechanical ventilation been managed by pulmonary critical care. 3 hypertension: Was on metoprolol previous to surgery patient will be on metoprolol along with lisinopril. 4 hyperlipidemia: Was on atorvastatin 80 mg daily resume medication. 5 BPH: Continue Flomax watch for any urinary retention. 6 history of osteoarthritis post right total knee arthroplasty fusion ago has been doing well. 7 hyperglycemia: Accu-Chek with sliding scales coverage and be done watch for any significant hyperglycemia. 8 mild anemia: Post surgery most likely from surgical blood loss was start patient on iron supplement along with multivitamins. Next 9 mild reactive airway: Was started on DuoNeb by pulmonary continue bronchodilator along with O2 for now. 10 DVT prophylaxis: Patient will be on heparin subcutaneous. 11 GI prophylaxis: Pantoprazole IV. CODE STATUS: Full code. Dr. Mckeon thank you much for the consult more than happy to see this gentleman along with you in the hospital I can be any further help to please let me know.
[2020-04-13 23:56] LABS: Glucose,Whole Blood 138 mg/dL (75-99)
[2020-04-14 00:54] LABS: Glucose,Whole Blood 125 mg/dL (75-99)
[2020-04-14] MEDS: ONDANSETRON 4 MG/2 ML VIAL IVP PRN ×2 (01:49→08:24)
[2020-04-14] MEDS: MUPIROCIN 2% OINT 22 GM TUBE NASAL SCH ×3 (02:00→20:40)
[2020-04-14 02:04] LABS: Glucose,Whole Blood 130 mg/dL (75-99)
[2020-04-14] MEDS: ALBUMIN HUMAN 5% 250 ML in EMPTY BAG 1 BAG IVPB PRN (02:23)
[2020-04-14] MEDS ORDERED: HYDROcodone/APAP 5-325MG 1 EACH TAB PO PRN (02:55)
[2020-04-14 03:10] LABS: Glucose,Whole Blood 129 mg/dL (75-99)
[2020-04-14 03:45] LABS: Glucose,Whole Blood 136 mg/dL (75-99)
[2020-04-14 03:54] LABS: Anisocytosis Moderate; HCT 22.6 % (39.0-53.0); Hypochromasia Slight; MCHC 31.2 g/dL (31.0-37.0); MCV 105.8 fL (80.0-100.0); Mean Platelet Volume 10.6; Platelet Count 220 k/uL (150-450); RBC 2.13 m/uL (4.30-5.90); RDW 20.1 % (11.5-15.5); WBC 12.5 k/uL (3.8-10.6)
[2020-04-14 03:59] LABS: Ionized Calcium 4.7 mg/dL (4.5-5.3); Macrocytosis Marked
[2020-04-14 04:08] LABS: ALT 19 U/L (4-49); AST 38 U/L (17-59); African American GFR (CKD) >90 (>60 ml/min/1.73 sqM); Albumin 2.7 g/dL (3.5-5.0); Alkaline Phosphatase 24 U/L (38-126); Anion Gap 4 mmol/L; Blood Urea Nitrogen 23 mg/dL (9-20); Calcium 7.4 mg/dL (8.4-10.2); Carbon Dioxide 25 mmol/L (22-30); Chloride 109 mmol/L (98-107); Glucose 115 mg/dL (74-99); Non-African American GFR(CKD) 86 (>60 ml/min/1.73 sqM); Sodium 138 mmol/L (137-145); Total Bilirubin 1.3 mg/dL (0.2-1.3); Total Protein 4.3 g/dL (6.3-8.2)
[2020-04-14 04:11] LABS: Band Neutrophils % 14 %; Lymphocytes # (M) 0.75 k/uL (1.0-4.8); Metamyelocytes # (M) 0.25 k/uL (0); Metamyelocytes % 2 %; Monocytes # (M) 0.38 k/uL (0-1.0); Neutrophils % (M) 75 %; Nucleated Red Blood Cells 0 /100 WBC (0-0); Total Cells Counted 100
[2020-04-14 04:12] LABS: Basophilic Stippling Present; Target Cells Present
[2020-04-14] MEDS: HYDROcodone/APAP 5-325MG 1 EACH TAB PO PRN ×2 (04:54→20:34)
[2020-04-14 05:28] LABS: Glucose,Whole Blood 136 mg/dL (75-99)
[2020-04-14] MEDS ORDERED: ACETAMINOPHEN TAB 500 MG TAB PO PRN (06:34)
[2020-04-14 06:36] LABS: Glucose,Whole Blood 130 mg/dL (75-99)
[2020-04-14 07:01] LABS: Glucose,Whole Blood 130 mg/dL (75-99)
[2020-04-14 07:03] LABS: Anisocytosis Moderate; HCT 24.3 % (39.0-53.0); HGB 7.8 gm/dL (13.0-17.5); Hypochromasia Slight; MCHC 31.9 g/dL (31.0-37.0); MCV 103.4 fL (80.0-100.0); Mean Platelet Volume 9.9; Platelet Count 228 k/uL (150-450); RBC 2.35 m/uL (4.30-5.90); RDW 20.4 % (11.5-15.5); WBC 11.7 k/uL (3.8-10.6)
[2020-04-14 07:05] LABS: Macrocytosis Marked
--- NOTE | 2020-04-14 07:08 | XR ---
EXAMINATION TYPE: XR chest 1V portable DATE OF EXAM: 04/14/2020 COMPARISON: 04/13/2020 HISTORY: Post cardiac surgery TECHNIQUE: Single frontal view of the chest is obtained. FINDINGS: Postoperative changes seen with a style drain and [place] catheter. ET tube has been rem benjie. NG tube placement. There is tubing overlying the left abdomen. Small amount of subcutaneous emp hysema with bilateral tiny effusions and consolidation. no sizable pneumothorax. IMPRESSION: 1. Bilateral infiltrate and small effusion. 2. Interval removal of ET and NG tube. 3. Postsurgical changes.
--- NOTE | 2020-04-14 07:47 | P.CRDCN ---
History of Present Illness Consult date: 04/14/20 Chief complaint: Coronary artery disease History of present illness: This is a pleasant 79-year-old gentleman with coronary artery disease as well as diabetes and hypertension and dyslipidemia was admitted to the hospital yesterday and underwent elective CABG 4. The patient underwent KEANE to LAD, radial artery to OM, SVG to diagonal, and SVG to RCA. This is his post operation day #1. The patient was extubated yesterday. Overall and from the cardiovascular standpoint of view, he is stable. Yesterday his pressure was marginal and his urine output was marginal as well and his hemoglobin was 7 and because of that he was given one unit of packed RBC. His hemoglobin this morning is above 7. Hemodynamically he is stable. The patient underwent a heart catheterization recently and was found to have severe triple-vessel coronary artery disease and because of that he was referred for coronary artery bypass grafting. The heart catheterization was performed in March 2020 to and he was found to have critical LAD disease, critical left circumflex disease, and critical RCA disease as well. Currently the patient is on dual antiplatelet therapy along with aspirin as well as Plavix. He is statin at 40 mg Lipitor daily. He will be started on metoprolol was subsequently on calcium channel branden down the line. The hemoglobin and renal function has been followed very closely. Past Medical History Past Medical History: Coronary Artery Disease (CAD), Hyperlipidemia, Hypertension, Myocardial Infarction ([place]), Osteoarthritis (OA) Additional Past Medical History / Comment(s): fatigues easily Last Myocardial Infarction Date:: 2001 History of Any Multi-Drug Resistant Organisms: None Reported Past Surgical History: Heart Catheterization With Stent, Hernia Repair, Joint Replacement, Tonsillectomy Additional Past Surgical History / Comment(s): Precancerous skin lesion removed, right knee replacement, cyst removed, bilateral cataracts removed. Bare-metal stent placed to the RCA in February 2002 Past Anesthesia/Blood Transfusion Reactions: No Reported Reaction Date of Last Stent Placement:: 2001 Smoking Status: Former smoker Medications and Allergies Home Medications Medication Instructions Recorded Confirmed Type Antioxident 1 tab PO DAILY 03/06/20 04/13/20 History Multivitamins, Thera [Multivitamin 2 tab PO DAILY 03/06/20 04/13/20 History (formulary)] Tamsulosin [Flomax] 0.4 mg PO DAILY 03/06/20 04/13/20 History Aspirin 81 mg PO DAILY 03/31/20 04/13/20 History Atorvastatin [Lipitor] 80 mg PO DAILY 03/31/20 04/13/20 History Metoprolol Tartrate [Lopressor] 12.5 mg PO DAILY 03/31/20 04/13/20 History Mupirocin 2% Oint [Bactroban 2% 1 applic NASAL BID #1 tube 03/31/20 04/13/20 Rx Oint] Aspirin 364 mg PO ONCE 04/13/20 04/13/20 History Allergies Allergy/AdvReac Type Severity Reaction Status Date / Time codeine Allergy Headache/brain Verified 04/13/20 05:47 swelling Physical Exam Vitals: Vital Signs Temp Pulse Resp BP Pulse Ox 04/14/20 07:00 97.7 F 78 11 L 105/56 99 04/14/20 06:45 86 15 105/56 99 04/14/20 06:30 87 12 105/56 100 04/14/20 06:15 93 17 105/56 98 04/14/20 06:00 98.1 F 97 16 105/56 97 04/14/20 05:45 115 H 22 105/56 99 04/14/20 05:30 98 17 105/56 96 04/14/20 05:15 96 16 105/56 99 04/14/20 05:00 98.2 F 101 H 25 H 105/56 97 04/14/20 04:45 98.1 F 88 12 112/49 98 04/14/20 04:35 98.1 F 04/14/20 04:30 93 13 105/56 97 04/14/20 04:00 98.2 F 90 12 105/71 98 04/14/20 03:45 93 14 105/71 97 04/14/20 03:30 94 13 105/71 98 04/14/20 03:15 89 10 L 105/71 98 04/14/20 03:00 98.2 F 86 10 L 105/71 98 04/14/20 02:45 95 10 L 105/71 97 04/14/20 02:30 95 10 L 97 04/14/20 02:15 96 11 L 105/71 98 04/14/20 02:00 98.1 F 96 15 105/71 98 04/14/20 01:45 96 13 105/71 98 04/14/20 01:30 91 9 L 105/71 98 04/14/20 01:15 89 11 L 105/71 96 04/14/20 01:00 89 10 L 105/71 99 04/14/20 00:45 92 19 105/71 99 04/14/20 00:30 86 11 L 105/71 98 04/14/20 00:15 80 12 105/71 98 04/14/20 00:00 97.7 F 81 7 L 98 04/13/20 23:45 87 11 L 103/72 97 04/13/20 23:30 90 11 L 103/72 96 04/13/20 23:29 85 10 L 103/72 97 04/13/20 23:15 83 11 L 103/72 98 04/13/20 23:00 36.6 F L 83 13 103/72 98 04/13/20 22:45 85 10 L 103/72 97 04/13/20 22:30 94 20 103/72 96 04/13/20 22:15 85 11 L 103/72 98 04/13/20 22:00 86 11 L 103/72 97 04/13/20 21:45 95 16 103/72 96 04/13/20 21:30 88 11 L 103/72 97 04/13/20 21:15 81 11 L 103/72 98 04/13/20 21:00 97.9 F 79 10 L 103/72 97 04/13/20 20:47 88 04/13/20 20:45 86 15 103/72 98 04/13/20 20:40 78 04/13/20 20:30 86 11 L 103/72 97 04/13/20 20:15 95 18 103/72 97 04/13/20 20:00 93 11 L 97 04/13/20 19:45 91 16 94 L 04/13/20 19:30 93 13 124/67 96 04/13/20 19:15 93 17 124/67 97 04/13/20 19:00 76 7 L 99 04/13/20 18:45 86 13 99 04/13/20 18:30 87 15 99 04/13/20 18:15 86 14 100 04/13/20 18:00 81 12 100 04/13/20 17:45 78 17 99 04/13/20 17:30 70 20 100 04/13/20 17:15 67 20 100 08/06/20 17:00 81 23 99 04/13/20 16:45 70 20 99 04/13/20 16:30 70 20 99 04/13/20 16:25 73 04/13/20 16:17 70 04/13/20 16:15 70 13 100 04/13/20 16:00 97.7 F 70 12 124/72 100 04/13/20 15:45 38 H 127/73 04/13/20 15:31 79 14 Intake and Output 04/13/20 04/14/20 04/14/20 22:59 06:59 14:59 Intake Total 9968.063 0100.267 340.5 Output Total 1250 755 40 Balance 373.270 7412.267 300.5 Intake: IV 1027.5 1964.0 340.5 ACETAMINOPHEN IV (For NPO 100 100 ) 1,000 mg In Empty Bag 1 bag @ 400 mls/hr IVPB Q6HR [facility] Rx#:[id number] CO/CI 190 270 30 Nitroglycerin-D5w Pmx 50 10.5 12.0 1.5 mg In Dextrose/Water 1 250ml.bag @ 5 MCG/MIN 1.5 mls/hr IV .Q24H [facility] Rx#: [id number] PRBC's 310 Pressure Bags 27 72 9 Sodium Chloride 0.9% 1, 350 400 50 000 ml @ 50 mls/hr IV . Q20H [facility] Rx#:[id number] albumin 5% 250 750 250 ceFAZolin 2 gm In Sodium 100 50 Chloride 0.9% 50 ml @ 100 mls/hr IVPB Q8HR [facility] Rx# :[id number] Intake, IV Titration 22.757 14.267 Amount Insulin Regular 100 unit 6.767 14.267 In Sodium Chloride 0.9% 100 ml @ Per Protocol IV .Q0M [facility] Rx#:[id number] propofoL 1,000 mg In 15.99 Empty Bag 1 bag @ Titrate IV .Q0M [facility] Rx#: [id number] Tube Feeding 150 Blood Product 317 310 Ffp 24 Cpd Unit 317 [id number] Rc As-1 Unit 310 [id number] Other 200 Output: Chest Tube Drainage 805 450 30 Bilateral Mediastinal 430 250 20 Left 375 200 10 Drainage 60 35 Left Arm 20 5 Left Calf 40 30 Urine 385 270 10 Other: Voiding Method Indwelling Catheter Indwelling Catheter Weight 87.5 kg ABP, PAP, CO, CI - Last 8 Hours Arterial Blood Pressure 101/41 Arterial Blood Pressure 94/40 Arterial Blood Pressure 93/40 Arterial Blood Pressure 86/39 Arterial Blood Pressure 99/61 Arterial Blood Pressure 117/58 Arterial Blood Pressure 133/63 Arterial Blood Pressure 102/47 Arterial Blood Pressure 111/50 Arterial Blood Pressure 54/47 Arterial Blood Pressure 101/44 Arterial Blood Pressure 101/46 Arterial Blood Pressure 96/46 Arterial Blood Pressure 102/48 Arterial Blood Pressure 96/46 Arterial Blood Pressure 100/47 Arterial Blood Pressure 109/53 Arterial Blood Pressure 135/63 Arterial Blood Pressure 110/51 Arterial Blood Pressure 121/51 Arterial Blood Pressure 117/48 Arterial Blood Pressure 0/0 Arterial Blood Pressure 120/47 Arterial Blood Pressure 114/49 Arterial Blood Pressure 115/46 Arterial Blood Pressure 111/47 Pulmonary Artery Pressure 23/6 Pulmonary Artery Pressure 21/8 Pulmonary Artery Pressure 21/6 Pulmonary Artery Pressure 21/7 Pulmonary Artery Pressure 17/4 Pulmonary Artery Pressure 36/23 Pulmonary Artery Pressure 33/18 Pulmonary Artery Pressure 39/20 Pulmonary Artery Pressure 30/14 Pulmonary Artery Pressure 28/14 Pulmonary Artery Pressure 28/14 Pulmonary Artery Pressure 25/13 Pulmonary Artery Pressure 25/12 Pulmonary Artery Pressure 24/12 Pulmonary Artery Pressure 23/12 Pulmonary Artery Pressure 21/9 Pulmonary Artery Pressure 19/10 Pulmonary Artery Pressure 25/15 Pulmonary Artery Pressure 31/19 Pulmonary Artery Pressure 19/9 Pulmonary Artery Pressure 23/11 Pulmonary Artery Pressure 22/11 Pulmonary Artery Pressure 26/14 Pulmonary Artery Pressure 23/10 Pulmonary Artery Pressure 23/11 Pulmonary Artery Pressure 22/10 Pulmonary Artery Pressure 21/10 Cardiac Output 5.2 Cardiac Output 5.2 Cardiac Output 4.7 Cardiac Output 5.2 Cardiac Output 5.2 Cardiac Output 5.2 Cardiac Output 4.8 Cardiac Output 5.3 Cardiac Output 5.3 Cardiac Output 6.3 Cardiac Index 2.7 Cardiac Index 2.7 Cardiac Index 2.4 Cardiac Index 2.7 Cardiac Index 2.7 Cardiac Index 2.7 Cardiac Index 2.5 Cardiac Index 2.7 Cardiac Index 2.7 Cardiac Index 3.2 - Constitutional General appearance: no acute distress - Respiratory Respiratory: bilateral: diminished - Cardiovascular Rhythm: regular Heart sounds: normal: S1, S2 Results 04/14/20 06:55 04/14/20 03:42 Cardiac Enzymes 04/13/20 04/14/20 Range/Units 15:50 03:42 AST 43 38 (17-59) U/L Coagulation 04/13/20 Range/Units 15:50 PT 12.6 H (9.0-12.0) sec APTT 30.7 H (22.0-30.0) sec CBC 04/13/20 04/13/20 04/13/20 Range/Units 15:50 18:56 22:10 WBC 22.8 H 23.3 H 18.5 H (3.8-10.6) k/uL RBC 2.58 L 2.64 L 2.56 L (4.30-5.90) m/uL Hgb 8.7 L D 9.0 L 8.8 L (13.0-17.5) gm/dL Hct 27.4 L 28.0 L 27.5 L (39.0-53.0) % Plt Count 241 259 266 (150-450) k/uL 04/14/20 04/14/20 Range/Units 03:42 06:55 WBC 12.5 H 11.7 H (3.8-10.6) k/uL RBC 2.13 L 2.35 L (4.30-5.90) m/uL Hgb 7.0 L D 7.8 L (13.0-17.5) gm/dL Hct 22.6 L 24.3 L (39.0-53.0) % Plt Count 220 228 (150-450) k/uL Comprehensive Metabolic Panel 04/13/20 04/14/20 Range/Units 15:50 03:42 Sodium 136 L 138 (137-145) mmol/L Potassium 4.1 5.0 (3.5-5.1) mmol/L Chloride 108 H 109 H (98-107) mmol/L Carbon Dioxide 26 25 (22-30) mmol/L BUN 18 23 H (9-20) mg/dL Creatinine 0.60 L 0.79 (0.66-1.25) mg/dL Glucose 89 115 H (74-99) mg/dL Calcium 7.9 L 7.4 L (8.4-10.2) mg/dL AST 43 38 (17-59) U/L ALT 20 19 (4-49) U/L Alkaline Phosphatase 31 L 24 L (38-126) U/L Total Protein 3.7 L 4.3 L (6.3-8.2) g/dL Albumin 2.2 L 2.7 L (3.5-5.0) g/dL Current Medications Generic Name Dose Route Start Last Admin Trade Name Freq PRN Reason Stop Dose Admin Acetaminophen 1,000 mg 04/14/20 06:34 Tylenol Tab PO Q6HR PRN Fever and/ or Pain Hydrocodone Bitart/Acetaminophen 2 each 04/14/20 02:55 04/14/20 04:54 [place] 5-325 PO 2 each Q4HR PRN Administration Severe Pain Hydrocodone Bitart/Acetaminophen 1 each 04/14/20 02:55 [place] 5-325 PO Q4HR PRN Moderate Pain Albuterol/Ipratropium 3 ml 04/13/20 15:20 Duoneb 0.5 Mg-3 Mg/3 Ml Soln INHALATION RT-Q2H PRN Shortness Of Breath Or Wheezing Albuterol/Ipratropium 3 ml 04/13/20 20:56 04/13/20 20:39 Duoneb 0.5 Mg-3 Mg/3 Ml Soln INHALATION 3 ml RT-QID COUNT INCLUDES THE [facility] Administration Ascorbic Acid 500 mg 04/14/20 07:30 Vitamin C PO BID-W/MEALS COUNT INCLUDES THE [facility] Aspirin 325 mg 04/14/20 09:00 Aspirin PO DAILY COUNT INCLUDES THE [facility] Atorvastatin Calcium 40 mg 04/14/20 09:00 Lipitor PO DAILY COUNT INCLUDES THE [facility] Benzocaine/Menthol 1 each 04/13/20 15:20 Cepacol Lozenge MUCOUS MEM Q2H PRN Sore Throat Bisacodyl 10 mg 04/14/20 09:00 Dulcolax RECTAL DAILY PRN Constipation Clopidogrel Bisulfate 75 mg 04/14/20 09:00 Plavix PO DAILY COUNT INCLUDES THE [facility] Ferrous Sulfate 325 mg 04/14/20 07:30 Feosol PO BID-W/MEALS COUNT INCLUDES THE [facility] Heparin Sodium (Porcine) 5,000 unit 04/13/20 22:55 04/13/20 23:30 Heparin SQ 5,000 unit Q8HR COUNT INCLUDES THE [facility] Administration Hydralazine HCl 10 mg 04/13/20 15:20 Apresoline IVP Q1H PRN Blood Pressure - High Clevidipine 25 mg/ IV Solution 50 mls @ 2 mls/hr 04/13/20 15:20 04/13/20 16:41 IV Not Given .Q24H [facility] Protocol 1 MG/HR Amiodarone HCl 150 mg/ 103 mls @ 618 mls/hr 04/13/20 15:20 Dextrose/Water IV .Q10M PRN A.FIB/FLUTTER Protocol Amiodarone HCl 360 mg/ 200 mls @ 33.333 mls/hr 04/13/20 15:20 Dextrose/Water IV .Q6H PRN A.FIB/FLUTTER Protocol 1 MG/MIN Amiodarone HCl 300 mg/ 250 mls @ 25 mls/hr 04/13/20 15:20 Dextrose/Water IV .Q10H PRN A.FIB/FLUTTER Protocol 0.5 MG/MIN Albumin Human 250 ml/ IV 250 mls @ 250 mls/hr 04/13/20 15:20 04/14/20 02:23 Solution IVPB 04/15/20 15:21 250 mls/hr Q1HR PRN Administration For Volume Cefazolin Sodium 2 gm/ Sodium 50 mls @ 100 mls/hr 04/13/20 16:00 04/13/20 23:19 Chloride IVPB 04/14/20 08:29 100 mls/hr Q8HR MANUEL Administration Insulin Human Regular 100 unit 101 mls @ 0 mls/hr 04/13/20 15:20 04/14/20 03:58 / Sodium Chloride IV 2 units/hr .Q0M [facility]EL 2.02 mls/hr Titration Protocol Per Protocol Sodium Chloride 1,000 mls @ 50 mls/hr 04/13/20 15:20 04/13/20 15:30 Saline 0.9% IV 50 mls/hr .Q20H [facility]UEL Administration Norepinephrine Bitartrate 4 mg 254 mls @ 15.621 mls/hr 04/13/20 15:30 0802/25 16:43 / Sodium Chloride IV Not Given .[id number] [facility] Protocol 0.05 MCG/KG/MIN Magnesium Hydroxide 2,400 mg 04/14/20 09:00 Milk Of Magnesia PO BID PRN Constipation Metoclopramide HCl 10 mg 04/13/20 15:20 Reglan IVP Q4H PRN Nausea And Vomiting Metoprolol Tartrate 12.5 mg 04/14/20 09:00 Lopressor PO BID MANUEL Miscellaneous Information 1 each 04/13/20 15:20 Potassium Per Protocol MISCELLANE DAILY PRN Per Protocol Protocol Miscellaneous Information 1 each 04/13/20 15:20 Magnesium Per Protocol MISCELLANE DAILY PRN Per Protocol Protocol Miscellaneous Information 1 each 04/13/20 15:20 Phosphorus Per Protocol MISCELLANE DAILY PRN Per Protocol Protocol Morphine Sulfate 2 mg 04/13/20 15:20 Morphine Sulfate (Inj) IVP Q2H PRN Severe Pain Multivitamins 1 each 04/14/20 09:00 Theragran PO DAILY MANUEL Mupirocin 1 applic 04/13/20 21:00 04/14/20 02:00 Bactroban Oint NASAL 04/16/20 21:01 1 applic BID MANUEL Administration Ondansetron HCl 4 mg 04/13/20 15:20 04/14/20 01:49 Zofran IVP 4 mg Q6HR PRN Administration Nausea And Vomiting Pantoprazole Sodium 40 mg 04/14/20 09:00 Protonix IVP 04/14/20 10:00 DAILY MANUEL Pantoprazole Sodium 40 mg 04/15/20 07:30 Protonix PO AC-BRKFST MANUEL Senna/Docusate Sodium 2 each 04/14/20 21:00 Senokot-S PO HS MANUEL Sodium Chloride 10 ml 04/13/20 21:00 04/13/20 23:06 Saline Flush IV 10 ml BID MANUEL Administration Tamsulosin HCl 0.4 mg 04/14/20 18:30 Flomax PO PC-SUPPER MANUEL Intake and Output 04/13/20 04/14/20 04/14/20 22:59 06:59 14:59 Intake Total 4705.560 7811.267 340.5 Output Total 1250 755 40 Balance 695.848 3388.267 300.5 Intake: IV 1027.5 1964.0 340.5 ACETAMINOPHEN IV (For NPO 100 100 ) 1,000 mg In Empty Bag 1 bag @ 400 mls/hr IVPB Q6HR [facility] Rx#:[id number] CO/CI 190 270 30 Nitroglycerin-D5w Pmx 50 10.5 12.0 1.5 mg In Dextrose/Water 1 250ml.bag @ 5 MCG/MIN 1.5 mls/hr IV .Q24H [facility] Rx#: [id number] PRBC's 310 Pressure Bags 27 72 9 Sodium Chloride 0.9% 1, 350 400 50 000 ml @ 50 mls/hr IV . Q20H [facility] Rx#:[id number] albumin 5% 250 750 250 ceFAZolin 2 gm In Sodium 100 50 Chloride 0.9% 50 ml @ 100 mls/hr IVPB Q8HR [facility] Rx# :[id number] Intake, IV Titration 22.757 14.267 Amount Insulin Regular 100 unit 6.767 14.267 In Sodium Chloride 0.9% 100 ml @ Per Protocol IV .Q0M [facility] Rx#:[id number] propofoL 1,000 mg In 15.99 Empty Bag 1 bag @ Titrate IV .Q0M [facility] Rx#: [id number] Tube Feeding 150 Blood Product 317 310 Ffp 24 Cpd Unit 317 [id number] Rc As-1 Unit 310 [id number] Other 200 Output: Chest Tube Drainage 805 450 30 Bilateral Mediastinal 430 250 20 Left 375 200 10 Drainage 60 35 Left Arm 20 5 Left Calf 40 30 Urine 385 270 10 Other: Voiding Method Indwelling Catheter Indwelling Catheter Weight 87.5 kg 04/14/20 06:55 04/14/20 03:42 Assessment and Plan Assessment: Assessment #1 severe triple-vessel CAD #2 status post CABG 4 as described above #3 diabetes #4 hypertension #5 dyslipidemia Plan #1 continue the current medical regimen was dual antiplatelet therapy #2 continue the current dose of Lipitor and increase the dose to 80 mg by mouth daily at bedtime down the line #3 start the patient on metoprolol and subsequently calcium channel branden down the line #4 continue monitor the kidney function and electrolytes #5 follow-up with the patient
--- NOTE | 2020-04-14 08:15 | P.PN ---
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 Previous history of coronary artery disease status post remote inferior wall myocardial infarction with RCA stent, hypertension, hyperlipidemia, previous tobacco dependence with FEV1 88% of predicted, remote history of pneumonia, BPH, and family history of premature coronary artery disease with mother having CABG at 60 years old. POD #1 quadruple coronary artery bypass grafting using the left internal mammary artery to the left anterior descending artery, left radial artery from the aorta to the obtuse marginal artery, reverse saphenous vein graft from the aorta to the diagonal artery, reverse saphenous vein graft from the aorta to the junction of the RCA to the posterior descending artery. Exclusion of the left atrial appendage using a 35 mm after clip. Endoscopic harvesting of the left radial artery. Endoscopic harvesting of the left greater saphenous vein from the groin to above the ankle level. Intraoperative transesophageal echocardiogram and epi-aortic scanning. Intraoperative graft flow measurements using the [employer] system. Postoperative acute blood loss anemia, expected given cardiopulmonary bypass pump, hemodilution, and patient's continued Plavix up until the day before surgery The patient is currently sitting up in the recliner in the intensive care unit in no acute distress. He was successfully extubated last night it 1902. He does complain of some post surgical type pain which is controlled on current medication regimen, denies shortness of breath. He does complain about a bit of numbness and tingling all over when asked, no focal deficits. Patient continued to take his Plavix up until the day before surgery, hemoglobin low this morning is 7.0, received 1 unit packed red blood cells. In addition he did receive 2 units FFP and 1 unit of platelet intraoperatively. Right internal jugular slowed/Cordis, right radial arterial line, mediastinal chest tubes, left pleural chest tubes all present. He remains in normal sinus rhythm, hemodynamically stable on no inotropes or pressors. No new concerns. Objective - Vital Signs Vital signs: Vital Signs Temp 97.7 F 04/14/20 07:00 Pulse 78 04/14/20 07:00 Resp 11 L 04/14/20 07:00 BP 105/56 04/14/20 07:00 Pulse Ox 99 04/14/20 07:00 Intake & Output 04/13/20 04/14/20 04/14/20 18:59 06:59 18:59 Intake Total 1365.49 3238.034 340.5 Output Total 4965 1290 40 Balance -3599.51 1948.034 300.5 Weight 87.5 kg Intake: IV 467.5 2557.0 340.5 ACETAMINOPHEN IV (For NPO 100 100 ) 1,000 mg In Empty Bag 1 bag @ 400 mls/hr IVPB Q6HR [facility] Rx#:[id number] CO/CI 80 380 30 Nitroglycerin-D5w Pmx 50 4.5 18.0 1.5 mg In Dextrose/Water 1 250ml.bag @ 5 MCG/MIN 1.5 mls/hr IV .Q24H [facility] Rx#: [id number] PRBC's 310 Pressure Bags 99 9 Sodium Chloride 0.9% 1, 150 600 50 000 ml @ 50 mls/hr IV . Q20H [facility] Rx#:[id number] albumin 5% 1000 250 ceFAZolin 2 gm In Sodium 100 50 Chloride 0.9% 50 ml @ 100 mls/hr IVPB Q8HR [facility] Rx# :[id number] Intake, IV Titration 15.99 21.034 Amount Insulin Regular 100 unit 21.034 In Sodium Chloride 0.9% 100 ml @ Per Protocol IV .Q0M [facility] Rx#:[id number] propofoL 1,000 mg In 15.99 Empty Bag 1 bag @ Titrate IV .Q0M [facility] Rx#: [id number] Tube Feeding 150 Blood Product 882 310 Ffp 24 Cpd Unit 284 [id number] Ffp 24 Cpd Unit 317 [id number] Platelet Pheresis Acd-A 281 Pasc 1 Unit [id number] Rc As-1 Unit 310 [id number] Other 200 Output: Chest Tube Drainage 495 760 30 Bilateral Mediastinal 250 430 20 Left 245 330 10 Drainage 60 35 Left Arm 20 5 Left Calf 40 30 Urine 1410 495 10 Estimated Blood Loss 3000 Other: Voiding Method Indwelling Catheter Indwelling Catheter ABP, PAP, CO, CI - Last Documented Arterial Blood Pressure 101/41 Pulmonary Artery Pressure 23/6 Cardiac Output 5.2 Cardiac Index 2.7 - Constitutional General appearance: Present: cooperative, no acute distress - Respiratory Details: Lungs sounds diminished bilaterally. Respirations even, nonlabored. Currently on 4 L nasal cannula with oxygen saturation 99%. Only able to achieve 750 mL on incentive spirometry. Weak cough. Mediastinal chest tubes present to continuous wall suction, 250 mL serosanguineous drainage overnight, 700 mL since surgery, no air leak present. Left pleural chest tube present continuous wall suction, 200 mL serosanguineous drainage overnight, 600 mL since surgery, no air leak present. - Cardiovascular Details: S1, S2 present, positive rub. Regular rate and rhythm, sinus rhythm on telemetry. Sternum stable. Atrial epicardial pacemaker wires present, connected to generator, AAI mode with backup rate 50 bpm. Palpable peripheral pulses bilaterally. No edema present. No calf pain or tenderness noted. Right internal jugular Carson/Cordis, right radial arterial line present. Last CO/CI 5.4/2.8 on no inotropes or pressors. Heart hugger in place with patient demonstrating appropriate use. SCDs present, bilateral lower extremities Jair wrapped. - Gastrointestinal Gastrointestinal Comment(s): Abdomen soft, nontender, nondistended. Hypoactive bowel sounds present 4 quadrants. Tolerating sips of liquids. Negative flatus - Genitourinary Genitourinary Comment(s): Grimm present draining clear, jm urine. Output 20-40 mL/h overnight - Integumentary Integumentary Comment(s): Skin is warm and dry with evidence of good perfusion. Anterior chest incision well approximated and covered with dry intact dressing. Left lower extremity EVH site well approximated, JANES drain present with minimal serosanguineous drainage, leg Jair wrapped. Left radial artery harvest site well approximated, JANES drain present with minimal serosanguineous drainage, arm is Jair wrapped, patient is able to wiggle fingers and explosive specialist appropriately. Hand does feel cool but patient has good cap refill. - Neurologic Neurologic: Present: CNII-XII intact - Musculoskeletal Musculoskeletal: Present: strength equal bilaterally - Psychiatric Psychiatric: Present: A&O x's 3, appropriate affect, intact judgment & insight - Allied health notes Allied health notes reviewed: nursing - Labs CBC & Chem 7: 04/14/20 06:55 04/14/20 03:42 Labs: Abnormal Lab Results - Last 24 Hours (Table) 04/10/20 04/13/20 04/13/20 Range/Units 10:06 08:43 11:03 WBC (3.8-10.6) k/uL RBC (4.30-5.90) m/uL Hgb (13.0-17.5) gm/dL Hct (39.0-53.0) % MCV (80.0-100.0) fL RDW (11.5-15.5) % Neutrophils # (Manual) (1.3-7.7) k/uL Lymphocytes # (Manual) (1.0-4.8) k/uL Metamyelocytes # (Man) (0) k/uL Nucleated RBCs (0-0) /100 WBC Macrocytosis PT (9.0-12.0) sec INR (<1.2) APTT (22.0-30.0) sec Fibrinogen (200-500) mg/dL ABG pH (7.35-7.45) ABG pCO2 (35-45) mmHg ABG pO2 357 H 243 H (83-108) mmHg ABG HCO3 27 H (21-25) mmol/L ABG Total CO2 29 H 27 H (19-24) mmol/L ABG O2 Saturation 100.0 H 99.8 H (94-97) % ABG Hematocrit 32 L 28 L (34.0-46.0) % ABG Sodium (135-146) mmol/L ABG Potassium (3.4-4.5) mmol/L ABG Ionized Calcium (4.5-5.3) mg/dL ABG Glucose 118 H (75-99) mg/dL ABG Lactic Acid (0.5-1.6) mmol/L Hemoglobin 10.3 L 9.1 L (13.0-17.5) gm/dL Sodium (137-145) mmol/L Chloride (98-107) mmol/L BUN (9-20) mg/dL Creatinine (0.66-1.25) mg/dL Glucose (74-99) mg/dL POC Glucose (mg/dL) (75-99) mg/dL Calcium (8.4-10.2) mg/dL Magnesium (1.6-2.3) mg/dL Alkaline Phosphatase (38-126) U/L Total Protein (6.3-8.2) g/dL Albumin (3.5-5.0) g/dL Arterial Blood Potassium (3.4-4.5) mmol/L Arterial Blood Glucose 118 H (75-99) mg/dL Crossmatch See Detail 04/13/20 04/13/20 04/13/20 Range/Units 12:10 12:47 13:15 WBC (3.8-10.6) k/uL RBC (4.30-5.90) m/uL Hgb (13.0-17.5) gm/dL Hct (39.0-53.0) % MCV (80.0-100.0) fL RDW (11.5-15.5) % Neutrophils # (Manual) (1.3-7.7) k/uL Lymphocytes # (Manual) (1.0-4.8) k/uL Metamyelocytes # (Man) (0) k/uL Nucleated RBCs (0-0) /100 WBC Macrocytosis PT (9.0-12.0) sec INR (<1.2) APTT (22.0-30.0) sec Fibrinogen (200-500) mg/dL ABG pH (7.35-7.45) ABG pCO2 (35-45) mmHg ABG pO2 >420 H 246 H 377 H (83-108) mmHg ABG HCO3 (21-25) mmol/L ABG Total CO2 25 H 25 H (19-24) mmol/L ABG O2 Saturation 100.0 H 99.9 H 100.0 H (94-97) % ABG Hematocrit 20 L* 25 L 25 L (34.0-46.0) % ABG Sodium 132 L (135-146) mmol/L ABG Potassium 5.9 H (3.4-4.5) mmol/L ABG Ionized Calcium 4.0 L 4.3 L 4.3 L (4.5-5.3) mg/dL ABG Glucose 205 H 178 H 165 H (75-99) mg/dL ABG Lactic Acid 1.7 H 2.5 H* (0.5-1.6) mmol/L Hemoglobin 6.4 L* 8.1 L 8.2 L (13.0-17.5) gm/dL Sodium (137-145) mmol/L Chloride (98-107) mmol/L BUN (9-20) mg/dL Creatinine (0.66-1.25) mg/dL Glucose (74-99) mg/dL POC Glucose (mg/dL) (75-99) mg/dL Calcium (8.4-10.2) mg/dL Magnesium (1.6-2.3) mg/dL Alkaline Phosphatase (38-126) U/L Total Protein (6.3-8.2) g/dL Albumin (3.5-5.0) g/dL Arterial Blood Potassium 5.9 H (3.4-4.5) mmol/L Arterial Blood Glucose 205 H 178 H 165 H (75-99) mg/dL Crossmatch 04/13/20 04/13/20 04/13/20 Range/Units 15:10 15:20 15:50 WBC (3.8-10.6) k/uL RBC (4.30-5.90) m/uL Hgb (13.0-17.5) gm/dL Hct (39.0-53.0) % MCV (80.0-100.0) fL RDW (11.5-15.5) % Neutrophils # (Manual) (1.3-7.7) k/uL Lymphocytes # (Manual) (1.0-4.8) k/uL Metamyelocytes # (Man) (0) k/uL Nucleated RBCs (0-0) /100 WBC Macrocytosis PT (9.0-12.0) sec INR (<1.2) APTT (22.0-30.0) sec Fibrinogen 117 L (200-500) mg/dL ABG pH 7.33 L (7.35-7.45) ABG pCO2 51 H (35-45) mmHg ABG pO2 157 H 339 H (83-108) mmHg ABG HCO3 27 H (21-25) mmol/L ABG Total CO2 26 H 29 H (19-24) mmol/L ABG O2 Saturation 99.3 H 99.8 H (94-97) % ABG Hematocrit 24 L (34.0-46.0) % ABG Sodium (135-146) mmol/L ABG Potassium (3.4-4.5) mmol/L ABG Ionized Calcium (4.5-5.3) mg/dL ABG Glucose (75-99) mg/dL ABG Lactic Acid 2.5 H* (0.5-1.6) mmol/L Hemoglobin 8.0 L (13.0-17.5) gm/dL Sodium (137-145) mmol/L Chloride (98-107) mmol/L BUN (9-20) mg/dL Creatinine (0.66-1.25) mg/dL Glucose (74-99) mg/dL POC Glucose (mg/dL) (75-99) mg/dL Calcium (8.4-10.2) mg/dL Magnesium (1.6-2.3) mg/dL Alkaline Phosphatase (38-126) U/L Total Protein (6.3-8.2) g/dL Albumin (3.5-5.0) g/dL Arterial Blood Potassium (3.4-4.5) mmol/L Arterial Blood Glucose (75-99) mg/dL Crossmatch 04/13/20 04/13/20 04/13/20 Range/Units 15:50 15:50 15:50 WBC 22.8 H (3.8-10.6) k/uL RBC 2.58 L (4.30-5.90) m/uL Hgb 8.7 L D (13.0-17.5) gm/dL Hct 27.4 L (39.0-53.0) % MCV 106.5 H (80.0-100.0) fL RDW 20.2 H (11.5-15.5) % Neutrophils # (Manual) 21.20 H (1.3-7.7) k/uL Lymphocytes # (Manual) (1.0-4.8) k/uL Metamyelocytes # (Man) 0.23 H (0) k/uL Nucleated RBCs 3 H (0-0) /100 WBC Macrocytosis Marked A PT 12.6 H (9.0-12.0) sec INR 1.3 H (<1.2) APTT 30.7 H (22.0-30.0) sec Fibrinogen (200-500) mg/dL ABG pH (7.35-7.45) ABG pCO2 (35-45) mmHg ABG pO2 (83-108) mmHg ABG HCO3 (21-25) mmol/L ABG Total CO2 (19-24) mmol/L ABG O2 Saturation (94-97) % ABG Hematocrit (34.0-46.0) % ABG Sodium (135-146) mmol/L ABG Potassium (3.4-4.5) mmol/L ABG Ionized Calcium (4.5-5.3) mg/dL ABG Glucose (75-99) mg/dL ABG Lactic Acid (0.5-1.6) mmol/L Hemoglobin (13.0-17.5) gm/dL Sodium 136 L (137-145) mmol/L Chloride 108 H (98-107) mmol/L BUN (9-20) mg/dL Creatinine 0.60 L (0.66-1.25) mg/dL Glucose (74-99) mg/dL POC Glucose (mg/dL) (75-99) mg/dL Calcium 7.9 L (8.4-10.2) mg/dL Magnesium 2.5 H (1.6-2.3) mg/dL Alkaline Phosphatase 31 L (38-126) U/L Total Protein 3.7 L (6.3-8.2) g/dL Albumin 2.2 L (3.5-5.0) g/dL Arterial Blood Potassium (3.4-4.5) mmol/L Arterial Blood Glucose (75-99) mg/dL Crossmatch 04/13/20 04/13/20 04/13/20 Range/Units 15:55 16:52 18:02 WBC (3.8-10.6) k/uL RBC (4.30-5.90) m/uL Hgb (13.0-17.5) gm/dL Hct (39.0-53.0) % MCV (80.0-100.0) fL RDW (11.5-15.5) % Neutrophils # (Manual) (1.3-7.7) k/uL Lymphocytes # (Manual) (1.0-4.8) k/uL Metamyelocytes # (Man) (0) k/uL Nucleated RBCs (0-0) /100 WBC Macrocytosis PT (9.0-12.0) sec INR (<1.2) APTT (22.0-30.0) sec Fibrinogen (200-500) mg/dL ABG pH (7.35-7.45) ABG pCO2 (35-45) mmHg ABG pO2 (83-108) mmHg ABG HCO3 (21-25) mmol/L ABG Total CO2 (19-24) mmol/L ABG O2 Saturation (94-97) % ABG Hematocrit (34.0-46.0) % ABG Sodium (135-146) mmol/L ABG Potassium (3.4-4.5) mmol/L ABG Ionized Calcium (4.5-5.3) mg/dL ABG Glucose (75-99) mg/dL ABG Lactic Acid (0.5-1.6) mmol/L Hemoglobin (13.0-17.5) gm/dL Sodium (137-145) mmol/L Chloride (98-107) mmol/L BUN (9-20) mg/dL Creatinine (0.66-1.25) mg/dL Glucose (74-99) mg/dL POC Glucose (mg/dL) 112 H 106 H 140 H (75-99) mg/dL Calcium (8.4-10.2) mg/dL Magnesium (1.6-2.3) mg/dL Alkaline Phosphatase (38-126) U/L Total Protein (6.3-8.2) g/dL Albumin (3.5-5.0) g/dL Arterial Blood Potassium (3.4-4.5) mmol/L Arterial Blood Glucose (75-99) mg/dL Crossmatch 04/13/20 04/13/20 04/13/20 Range/Units 18:29 18:51 18:54 WBC (3.8-10.6) k/uL RBC (4.30-5.90) m/uL Hgb (13.0-17.5) gm/dL Hct (39.0-53.0) % MCV (80.0-100.0) fL RDW (11.5-15.5) % Neutrophils # (Manual) (1.3-7.7) k/uL Lymphocytes # (Manual) (1.0-4.8) k/uL Metamyelocytes # (Man) (0) k/uL Nucleated RBCs (0-0) /100 WBC Macrocytosis PT (9.0-12.0) sec INR (<1.2) APTT (22.0-30.0) sec Fibrinogen (200-500) mg/dL ABG pH (7.35-7.45) ABG pCO2 (35-45) mmHg ABG pO2 170 H (83-108) mmHg ABG HCO3 (21-25) mmol/L ABG Total CO2 26 H (19-24) mmol/L ABG O2 Saturation 99.0 H (94-97) % ABG Hematocrit (34.0-46.0) % ABG Sodium (135-146) mmol/L ABG Potassium (3.4-4.5) mmol/L ABG Ionized Calcium (4.5-5.3) mg/dL ABG Glucose (75-99) mg/dL ABG Lactic Acid (0.5-1.6) mmol/L Hemoglobin (13.0-17.5) gm/dL Sodium (137-145) mmol/L Chloride (98-107) mmol/L BUN (9-20) mg/dL Creatinine (0.66-1.25) mg/dL Glucose (74-99) mg/dL POC Glucose (mg/dL) 136 H 144 H (75-99) mg/dL Calcium (8.4-10.2) mg/dL Magnesium (1.6-2.3) mg/dL Alkaline Phosphatase (38-126) U/L Total Protein (6.3-8.2) g/dL Albumin (3.5-5.0) g/dL Arterial Blood Potassium (3.4-4.5) mmol/L Arterial Blood Glucose (75-99) mg/dL Crossmatch 04/13/20 04/13/20 04/13/20 Range/Units 18:56 20:04 21:01 WBC 23.3 H (3.8-10.6) k/uL RBC 2.64 L (4.30-5.90) m/uL Hgb 9.0 L (13.0-17.5) gm/dL Hct 28.0 L (39.0-53.0) % MCV 105.8 H (80.0-100.0) fL RDW 20.0 H (11.5-15.5) % Neutrophils # (Manual) 21.40 H (1.3-7.7) k/uL Lymphocytes # (Manual) (1.0-4.8) k/uL Metamyelocytes # (Man) (0) k/uL Nucleated RBCs (0-0) /100 WBC Macrocytosis Marked A PT (9.0-12.0) sec INR (<1.2) APTT (22.0-30.0) sec Fibrinogen (200-500) mg/dL ABG pH (7.35-7.45) ABG pCO2 (35-45) mmHg ABG pO2 (83-108) mmHg ABG HCO3 (21-25) mmol/L ABG Total CO2 (19-24) mmol/L ABG O2 Saturation (94-97) % ABG Hematocrit (34.0-46.0) % ABG Sodium (135-146) mmol/L ABG Potassium (3.4-4.5) mmol/L ABG Ionized Calcium (4.5-5.3) mg/dL ABG Glucose (75-99) mg/dL ABG Lactic Acid (0.5-1.6) mmol/L Hemoglobin (13.0-17.5) gm/dL Sodium (137-145) mmol/L Chloride (98-107) mmol/L BUN (9-20) mg/dL Creatinine (0.66-1.25) mg/dL Glucose (74-99) mg/dL POC Glucose (mg/dL) 141 H 137 H (75-99) mg/dL Calcium (8.4-10.2) mg/dL Magnesium (1.6-2.3) mg/dL Alkaline Phosphatase (38-126) U/L Total Protein (6.3-8.2) g/dL Albumin (3.5-5.0) g/dL Arterial Blood Potassium (3.4-4.5) mmol/L Arterial Blood Glucose (75-99) mg/dL Crossmatch 04/13/20 04/13/20 04/13/20 Range/Units 22:07 22:10 23:01 WBC 18.5 H (3.8-10.6) k/uL RBC 2.56 L (4.30-5.90) m/uL Hgb 8.8 L (13.0-17.5) gm/dL Hct 27.5 L (39.0-53.0) % MCV 107.3 H (80.0-100.0) fL RDW 20.3 H (11.5-15.5) % Neutrophils # (Manual) 16.60 H (1.3-7.7) k/uL Lymphocytes # (Manual) 0.74 L (1.0-4.8) k/uL Metamyelocytes # (Man) 0.37 H (0) k/uL Nucleated RBCs (0-0) /100 WBC Macrocytosis Marked A PT (9.0-12.0) sec INR (<1.2) APTT (22.0-30.0) sec Fibrinogen (200-500) mg/dL ABG pH (7.35-7.45) ABG pCO2 (35-45) mmHg ABG pO2 (83-108) mmHg ABG HCO3 (21-25) mmol/L ABG Total CO2 (19-24) mmol/L ABG O2 Saturation (94-97) % ABG Hematocrit (34.0-46.0) % ABG Sodium (135-146) mmol/L ABG Potassium (3.4-4.5) mmol/L ABG Ionized Calcium (4.5-5.3) mg/dL ABG Glucose (75-99) mg/dL ABG Lactic Acid (0.5-1.6) mmol/L Hemoglobin (13.0-17.5) gm/dL Sodium (137-145) mmol/L Chloride (98-107) mmol/L BUN (9-20) mg/dL Creatinine (0.66-1.25) mg/dL Glucose (74-99) mg/dL POC Glucose (mg/dL) 145 H 141 H (75-99) mg/dL Calcium (8.4-10.2) mg/dL Magnesium (1.6-2.3) mg/dL Alkaline Phosphatase (38-126) U/L Total Protein (6.3-8.2) g/dL Albumin (3.5-5.0) g/dL Arterial Blood Potassium (3.4-4.5) mmol/L Arterial Blood Glucose (75-99) mg/dL Crossmatch 04/13/20 04/14/20 04/14/20 Range/Units 23:54 00:51 02:03 WBC (3.8-10.6) k/uL RBC (4.30-5.90) m/uL Hgb (13.0-17.5) gm/dL Hct (39.0-53.0) % MCV (80.0-100.0) fL RDW (11.5-15.5) % Neutrophils # (Manual) (1.3-7.7) k/uL Lymphocytes # (Manual) (1.0-4.8) k/uL Metamyelocytes # (Man) (0) k/uL Nucleated RBCs (0-0) /100 WBC Macrocytosis PT (9.0-12.0) sec INR (<1.2) APTT (22.0-30.0) sec Fibrinogen (200-500) mg/dL ABG pH (7.35-7.45) ABG pCO2 (35-45) mmHg ABG pO2 (83-108) mmHg ABG HCO3 (21-25) mmol/L ABG Total CO2 (19-24) mmol/L ABG O2 Saturation (94-97) % ABG Hematocrit (34.0-46.0) % ABG Sodium (135-146) mmol/L ABG Potassium (3.4-4.5) mmol/L ABG Ionized Calcium (4.5-5.3) mg/dL ABG Glucose (75-99) mg/dL ABG Lactic Acid (0.5-1.6) mmol/L Hemoglobin (13.0-17.5) gm/dL Sodium (137-145) mmol/L Chloride (98-107) mmol/L BUN (9-20) mg/dL Creatinine (0.66-1.25) mg/dL Glucose (74-99) mg/dL POC Glucose (mg/dL) 138 H 125 H 130 H (75-99) mg/dL Calcium (8.4-10.2) mg/dL Magnesium (1.6-2.3) mg/dL Alkaline Phosphatase (38-126) U/L Total Protein (6.3-8.2) g/dL Albumin (3.5-5.0) g/dL Arterial Blood Potassium (3.4-4.5) mmol/L Arterial Blood Glucose (75-99) mg/dL Crossmatch 04/14/20 04/14/20 04/14/20 Range/Units 03:08 03:42 03:42 WBC 12.5 H (3.8-10.6) k/uL RBC 2.13 L (4.30-5.90) m/uL Hgb 7.0 L D (13.0-17.5) gm/dL Hct 22.6 L (39.0-53.0) % MCV 105.8 H (80.0-100.0) fL RDW 20.1 H (11.5-15.5) % Neutrophils # (Manual) 11.10 H (1.3-7.7) k/uL Lymphocytes # (Manual) 0.75 L (1.0-4.8) k/uL Metamyelocytes # (Man) 0.25 H (0) k/uL Nucleated RBCs (0-0) /100 WBC Macrocytosis Marked A PT (9.0-12.0) sec INR (<1.2) APTT (22.0-30.0) sec Fibrinogen (200-500) mg/dL ABG pH (7.35-7.45) ABG pCO2 (35-45) mmHg ABG pO2 (83-108) mmHg ABG HCO3 (21-25) mmol/L ABG Total CO2 (19-24) mmol/L ABG O2 Saturation (94-97) % ABG Hematocrit (34.0-46.0) % ABG Sodium (135-146) mmol/L ABG Potassium (3.4-4.5) mmol/L ABG Ionized Calcium (4.5-5.3) mg/dL ABG Glucose (75-99) mg/dL ABG Lactic Acid (0.5-1.6) mmol/L Hemoglobin (13.0-17.5) gm/dL Sodium (137-145) mmol/L Chloride 109 H (98-107) mmol/L BUN 23 H (9-20) mg/dL Creatinine (0.66-1.25) mg/dL Glucose 115 H (74-99) mg/dL POC Glucose (mg/dL) 129 H (75-99) mg/dL Calcium 7.4 L (8.4-10.2) mg/dL Magnesium (1.6-2.3) mg/dL Alkaline Phosphatase 24 L (38-126) U/L Total Protein 4.3 L (6.3-8.2) g/dL Albumin 2.7 L (3.5-5.0) g/dL Arterial Blood Potassium (3.4-4.5) mmol/L Arterial Blood Glucose (75-99) mg/dL Crossmatch 04/14/20 04/14/20 04/14/20 Range/Units 03:43 05:27 06:26 WBC (3.8-10.6) k/uL RBC (4.30-5.90) m/uL Hgb (13.0-17.5) gm/dL Hct (39.0-53.0) % MCV (80.0-100.0) fL RDW (11.5-15.5) % Neutrophils # (Manual) (1.3-7.7) k/uL Lymphocytes # (Manual) (1.0-4.8) k/uL Metamyelocytes # (Man) (0) k/uL Nucleated RBCs (0-0) /100 WBC Macrocytosis PT (9.0-12.0) sec INR (<1.2) APTT (22.0-30.0) sec Fibrinogen (200-500) mg/dL ABG pH (7.35-7.45) ABG pCO2 (35-45) mmHg ABG pO2 (83-108) mmHg ABG HCO3 (21-25) mmol/L ABG Total CO2 (19-24) mmol/L ABG O2 Saturation (94-97) % ABG Hematocrit (34.0-46.0) % ABG Sodium (135-146) mmol/L ABG Potassium (3.4-4.5) mmol/L ABG Ionized Calcium (4.5-5.3) mg/dL ABG Glucose (75-99) mg/dL ABG Lactic Acid (0.5-1.6) mmol/L Hemoglobin (13.0-17.5) gm/dL Sodium (137-145) mmol/L Chloride (98-107) mmol/L BUN (9-20) mg/dL Creatinine (0.66-1.25) mg/dL Glucose (74-99) mg/dL POC Glucose (mg/dL) 136 H 136 H 130 H (75-99) mg/dL Calcium (8.4-10.2) mg/dL Magnesium (1.6-2.3) mg/dL Alkaline Phosphatase (38-126) U/L Total Protein (6.3-8.2) g/dL Albumin (3.5-5.0) g/dL Arterial Blood Potassium (3.4-4.5) mmol/L Arterial Blood Glucose (75-99) mg/dL Crossmatch 04/14/20 04/14/20 Range/Units 06:55 06:56 WBC 11.7 H (3.8-10.6) k/uL RBC 2.35 L (4.30-5.90) m/uL Hgb 7.8 L (13.0-17.5) gm/dL Hct 24.3 L (39.0-53.0) % MCV 103.4 H (80.0-100.0) fL RDW 20.4 H (11.5-15.5) % Neutrophils # (Manual) (1.3-7.7) k/uL Lymphocytes # (Manual) (1.0-4.8) k/uL Metamyelocytes # (Man) (0) k/uL Nucleated RBCs (0-0) /100 WBC Macrocytosis Marked A PT (9.0-12.0) sec INR (<1.2) APTT (22.0-30.0) sec Fibrinogen (200-500) mg/dL ABG pH (7.35-7.45) ABG pCO2 (35-45) mmHg ABG pO2 (83-108) mmHg ABG HCO3 (21-25) mmol/L ABG Total CO2 (19-24) mmol/L ABG O2 Saturation (94-97) % ABG Hematocrit (34.0-46.0) % ABG Sodium (135-146) mmol/L ABG Potassium (3.4-4.5) mmol/L ABG Ionized Calcium (4.5-5.3) mg/dL ABG Glucose (75-99) mg/dL ABG Lactic Acid (0.5-1.6) mmol/L Hemoglobin (13.0-17.5) gm/dL Sodium (137-145) mmol/L Chloride (98-107) mmol/L BUN (9-20) mg/dL Creatinine (0.66-1.25) mg/dL Glucose (74-99) mg/dL POC Glucose (mg/dL) 130 H (75-99) mg/dL Calcium (8.4-10.2) mg/dL Magnesium (1.6-2.3) mg/dL Alkaline Phosphatase (38-126) U/L Total Protein (6.3-8.2) g/dL Albumin (3.5-5.0) g/dL Arterial Blood Potassium (3.4-4.5) mmol/L Arterial Blood Glucose (75-99) mg/dL Crossmatch - Imaging and Cardiology Chest x-ray: report reviewed, image reviewed Assessment and Plan Assessment: 1. Triple-vessel coronary artery disease, status post four-vessel CABG 2. Mild to moderate left ventricular dysfunction, chronic systolic heart failure, preoperative EF 30-45% 3. Mild mitral valve regurgitation 4. Moderately dilated ascending aorta 4.2 cm 5. History of coronary artery disease status post remote inferior wall [place] with RCA stent 6. History of hypertension, currently hypotensive 7. Hyperlipidemia 8. Previous tobacco dependence with FEV1 88% of predicted 9. Remote history of pneumonia 10. BPH 11. Family history of premature coronary artery disease 12. Postoperative acute blood loss anemia Plan: 1. Continue aspirin, statin, Plavix, beta branden. Will increase beta branden as tolerated. 2. Discontinue IV nitro. Will start calcium channel branden for radial artery spasm. Please do not discontinue without discussing with cardiac surgery 3. Wean O2 as tolerated. Bronchodilators per pulmonology Encourage incentive spirometry 10 times every hour while awake 4. Increase activity, ambulate as tolerated. PT/OT/cardiac rehab following 5. Will monitor daily labs and x-rays. Electrolyte replacement per protocol. No further transfusion today. Will give 10 mg IV lasix 6. Pain control with current medication regimen 7. Insulin management per primary care service. Hemoglobin A1c preoperatively 5.2% 8. Keep chest tubes for another 24 hours 9. Keep Grimm catheter for another 24 hours for strict accurate intake and output 10. Restart home medications including Flomax 11. More recommendations to follow based on patient's progress Time with Patient: Greater than 30
[2020-04-14 08:22] LABS: Glucose,Whole Blood 110 mg/dL (75-99)
[2020-04-14] MEDS ORDERED: FUROSEMIDE 10 MG/ML 2 ML VIAL IV ONE (08:27)
[2020-04-14] MEDS: NOREPINEPHRINE 4 MG in SODIUM CHLORIDE 0.9% 250 ML IV SCH (08:44)
[2020-04-14] MEDS: ASCORBIC ACID 500 MG TAB PO SCH ×2 (08:47→18:27)
[2020-04-14] MEDS: METOPROLOL TARTRATE 12.5 MG TAB PO SCH ×2 (08:47→20:33)
[2020-04-14] MEDS: FERROUS SULFATE 325 MG TAB PO SCH ×2 (08:47→18:26)
[2020-04-14] MEDS: ASPIRIN 325 MG TAB PO SCH (08:48)
[2020-04-14] MEDS: CLOPIDOGREL 75 MG TAB PO SCH (08:48)
[2020-04-14] MEDS: ATORVASTATIN 40 MG TAB PO SCH (08:48)
[2020-04-14] MEDS: MULTIVITAMINS, THERA 1 EACH TAB PO SCH (08:48)
[2020-04-14] MEDS: HEPARIN SODIUM,PORCINE 5,000 UNIT/ML 1 ML VIAL SQ SCH ×2 (08:49→15:25)
[2020-04-14] MEDS ORDERED: bisacodyL 10 MG SUPP RECTAL PRN (09:00)
[2020-04-14] MEDS ORDERED: PANTOPRAZOLE 40 MG/10 ML VIAL IVP SCH (09:00)
[2020-04-14] MEDS ORDERED: MAGNESIUM HYDROXIDE 2,400 MG/10 ML CUP PO PRN (09:00)
[2020-04-14] MEDS ORDERED: KETOROLAC 30 MG/ML 1 ML VIAL IVP SCH (09:00)
[2020-04-14] MEDS: IPRATROPIUM-ALBUTEROL 3 ML NEB INHALATION SCH ×4 (09:05→20:03)
[2020-04-14 09:06] LABS: Glucose,Whole Blood 110 mg/dL (75-99)
[2020-04-14 10:09] LABS: Glucose,Whole Blood 122 mg/dL (75-99)
[2020-04-14 10:53] LABS: Glucose,Whole Blood 127 mg/dL (75-99)
[2020-04-14] MEDS: SODIUM CHLORIDE 0.9% 1,000 ML IV SCH (11:32)
[2020-04-14 12:21] LABS: Glucose,Whole Blood 166 mg/dL (75-99)
[2020-04-14] MEDS: CLEVIDIPINE BUTYRATE 25 MG in EMPTY BAG 1 BAG IV SCH (12:25)
--- NOTE | 2020-04-14 12:37 | P.PN ---
Subjective Progress Note Date: 04/14/20 04/14/2020, the patient is extubated and he is sitting up on a recliner chair. This morning's, comfortable. He is using incentive spirometer pulling approximately 500. His postop day #1 following four-vessel bypass surgery. His cardiac rhythm is sinus. Cardiac output is 5.4 with an index of 2.8. His mental status is appropriate. The mediastinal chest tubes are draining around 700 mL over the past 12 hours in the left pleural chest tube and drained on 6 20 mL over the past 12 hours. Insulin drip is running at 2 units an hour. Normal saline at rate of 50 mL's an hour. Note that postop, the patient received a total of 5 units of IV albumin, 1 unit of packed RBC, 2 units of fresh frozen plasma and a platelet concentrate. Overall, is doing well. His chest x-ray shows adequate expansion of both lungs. The left-sided chest tube is a bit kinked ureters functional and there is no evidence of any air leak. The patient has some skeletal chest wall pain and sciatica surgery. JANES drains are in place. No other significant events overnight. He was extubated without any major difficulties Objective - Vital Signs Vital signs: Vital Signs Temp 36.6 F L 04/14/20 08:00 Pulse 89 04/14/20 11:30 Resp 18 04/14/20 11:30 BP 105/56 04/14/20 07:30 Pulse Ox 98 04/14/20 11:30 Intake & Output 04/13/20 04/14/20 04/14/20 18:59 06:59 18:59 Intake Total 1365.49 3238.034 708.905 Output Total 4965 1290 480 Balance -3599.51 1948.034 228.905 Weight 87.5 kg 87.5 kg Intake: IV 467.5 2557.0 697.5 ACETAMINOPHEN IV (For NPO 100 100 ) 1,000 mg In Empty Bag 1 bag @ 400 mls/hr IVPB Q6HR [facility] Rx#:[id number] CO/CI 80 380 60 Nitroglycerin-D5w Pmx 50 4.5 18.0 1.5 mg In Dextrose/Water 1 250ml.bag @ 5 MCG/MIN 1.5 mls/hr IV .Q24H [facility] Rx#: [id number] PRBC's 310 Pressure Bags 99 36 Sodium Chloride 0.9% 1, 150 600 300 000 ml @ 50 mls/hr IV . Q20H [facility] Rx#:[id number] albumin 5% 1000 250 ceFAZolin 2 gm In Sodium 100 50 50 Chloride 0.9% 50 ml @ 100 mls/hr IVPB Q8HR [facility] Rx# :[id number] Intake, IV Titration 15.99 21.034 11.405 Amount Insulin Regular 100 unit 21.034 11.405 In Sodium Chloride 0.9% 100 ml @ Per Protocol IV .Q0M [facility] Rx#:[id number] propofoL 1,000 mg In 15.99 Empty Bag 1 bag @ Titrate IV .Q0M [facility] Rx#: [id number] Tube Feeding 150 Blood Product 882 310 Ffp 24 Cpd Unit 284 [id number] Ffp 24 Cpd Unit 317 [id number] Platelet Pheresis Acd-A 281 Pasc 1 Unit [id number] Rc As-1 Unit 310 [id number] Other 200 Output: Chest Tube Drainage 495 760 180 Bilateral Mediastinal 250 430 140 Left 245 330 40 Drainage 60 35 Left Arm 20 5 Left Calf 40 30 Urine 1410 495 300 Estimated Blood Loss 3000 Other: Voiding Method Indwelling Catheter Indwelling Catheter Indwelling Catheter ABP, PAP, CO, CI - Last Documented Arterial Blood Pressure 111/49 Pulmonary Artery Pressure 28/7 Cardiac Output 6.1 Cardiac Index 3.1 - Exam - Constitutional General appearance: Present: cooperative, no acute distress - Respiratory Details: Lungs sounds diminished bilaterally. Respirations even, nonlabored. Currently on 4 L nasal cannula with oxygen saturation 99%. Only able to achieve 750 mL on incentive spirometry. Weak cough. Mediastinal chest tubes present to continuous wall suction, 250 mL serosanguineous drainage overnight, 700 mL since surgery, no air leak present. Left pleural chest tube present continuous wall suction, 200 mL serosanguineous drainage overnight, 600 mL since surgery, no air leak present. - Cardiovascular Details: S1, S2 present, positive rub. Regular rate and rhythm, sinus rhythm on telemetry. Sternum stable. Atrial epicardial pacemaker wires present, connected to generator, AAI mode with backup rate 50 bpm. Palpable peripheral pulses bilaterally. No edema present. No calf pain or tenderness noted. Right internal jugular [place], right radial arterial line present. Last CO/CI 5.4/2.8 on no inotropes or pressors. Heart hugger in place with patient demonstrating appropriate use. SCDs present, bilateral lower extremities Jair wrapped. - Gastrointestinal Gastrointestinal Comment(s): Abdomen soft, nontender, nondistended. Hypoactive bowel sounds present 4 qu adrants. Tolerating sips of liquids. Negative flatus - Genitourinary Genitourinary Comment(s): Grimm present draining clear, jm urine. Output 20-40 mL/h overnight - Integumentary Integumentary Comment(s): Skin is warm and dry with evidence of good perfusion. Anterior chest incision well approximated and covered with dry intact dressing. Left lower extremity EVH site well approximated, JANES drain present with minimal serosanguineous drainage, leg Jair wrapped. 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 Hand does feel cool but patient has good cap refill. - Neurologic Neurologic: Present: CNII-XII intact - Musculoskeletal Musculoskeletal: Present: strength equal bilaterally - Psychiatric Psychiatric: Present: A&O x's 3, appropriate affect, intact judgment & insight - Labs CBC & Chem 7: 04/14/20 06:55 04/14/20 03:42 Labs: Abnormal Lab Results - Last 24 Hours (Table) 04/10/20 04/13/20 04/13/20 Range/Units 10:06 08:43 11:03 WBC (3.8-10.6) k/uL RBC (4.30-5.90) m/uL Hgb (13.0-17.5) gm/dL Hct (39.0-53.0) % MCV (80.0-100.0) fL RDW (11.5-15.5) % Neutrophils # (Manual) (1.3-7.7) k/uL Lymphocytes # (Manual) (1.0-4.8) k/uL Metamyelocytes # (Man) (0) k/uL Nucleated RBCs (0-0) /100 WBC Macrocytosis PT (9.0-12.0) sec INR (<1.2) APTT (22.0-30.0) sec Fibrinogen (200-500) mg/dL ABG pH (7.35-7.45) ABG pCO2 (35-45) mmHg ABG pO2 357 H 243 H (83-108) mmHg ABG HCO3 27 H (21-25) mmol/L ABG Total CO2 29 H 27 H (19-24) mmol/L ABG O2 Saturation 100.0 H 99.8 H (94-97) % ABG Hematocrit 32 L 28 L (34.0-46.0) % ABG Sodium (135-146) mmol/L ABG Potassium (3.4-4.5) mmol/L ABG Ionized Calcium (4.5-5.3) mg/dL ABG Glucose 118 H (75-99) mg/dL ABG Lactic Acid (0.5-1.6) mmol/L Hemoglobin 10.3 L 9.1 L (13.0-17.5) gm/dL Sodium (137-145) mmol/L Chloride (98-107) mmol/L BUN (9-20) mg/dL Creatinine (0.66-1.25) mg/dL Glucose (74-99) mg/dL POC Glucose (mg/dL) (75-99) mg/dL Calcium (8.4-10.2) mg/dL Magnesium (1.6-2.3) mg/dL Alkaline Phosphatase (38-126) U/L Total Protein (6.3-8.2) g/dL Albumin (3.5-5.0) g/dL Arterial Blood Potassium (3.4-4.5) mmol/L Arterial Blood Glucose 118 H (75-99) mg/dL Crossmatch See Detail 04/13/20 04/13/20 04/13/20 Range/Units 12:10 12:47 13:15 WBC (3.8-10.6) k/uL RBC (4.30-5.90) m/uL Hgb (13.0-17.5) gm/dL Hct (39.0-53.0) % MCV (80.0-100.0) fL RDW (11.5-15.5) % Neutrophils # (Manual) (1.3-7.7) k/uL Lymphocytes # (Manual) (1.0-4.8) k/uL Metamyelocytes # (Man) (0) k/uL Nucleated RBCs (0-0) /100 WBC Macrocytosis PT (9.0-12.0) sec INR (<1.2) APTT (22.0-30.0) sec Fibrinogen (200-500) mg/dL ABG pH (7.35-7.45) ABG pCO2 (35-45) mmHg ABG pO2 >420 H 246 H 377 H (83-108) mmHg ABG HCO3 (21-25) mmol/L ABG Total CO2 25 H 25 H (19-24) mmol/L ABG O2 Saturation 100.0 H 99.9 H 100.0 H (94-97) % ABG Hematocrit 20 L* 25 L 25 L (34.0-46.0) % ABG Sodium 132 L (135-146) mmol/L ABG Potassium 5.9 H (3.4-4.5) mmol/L ABG Ionized Calcium 4.0 L 4.3 L 4.3 L (4.5-5.3) mg/dL ABG Glucose 205 H 178 H 165 H (75-99) mg/dL ABG Lactic Acid 1.7 H 2.5 H* (0.5-1.6) mmol/L Hemoglobin 6.4 L* 8.1 L 8.2 L (13.0-17.5) gm/dL Sodium (137-145) mmol/L Chloride (98-107) mmol/L BUN (9-20) mg/dL Creatinine (0.66-1.25) mg/dL Glucose (74-99) mg/dL POC Glucose (mg/dL) (75-99) mg/dL Calcium (8.4-10.2) mg/dL Magnesium (1.6-2.3) mg/dL Alkaline Phosphatase (38-126) U/L Total Protein (6.3-8.2) g/dL Albumin (3.5-5.0) g/dL Arterial Blood Potassium 5.9 H (3.4-4.5) mmol/L Arterial Blood Glucose 205 H 178 H 165 H (75-99) mg/dL Crossmatch 04/13/20 04/13/20 04/13/20 Range/Units 15:10 15:20 15:50 WBC (3.8-10.6) k/uL RBC (4.30-5.90) m/uL Hgb (13.0-17.5) gm/dL Hct (39.0-53.0) % MCV (80.0-100.0) fL RDW (11.5-15.5) % Neutrophils # (Manual) (1.3-7.7) k/uL Lymphocytes # (Manual) (1.0-4.8) k/uL Metamyelocytes # (Man) (0) k/uL Nucleated RBCs (0-0) /100 WBC Macrocytosis PT (9.0-12.0) sec INR (<1.2) APTT (22.0-30.0) sec Fibrinogen 117 L (200-500) mg/dL ABG pH 7.33 L (7.35-7.45) ABG pCO2 51 H (35-45) mmHg ABG pO2 157 H 339 H (83-108) mmHg ABG HCO3 27 H (21-25) mmol/L ABG Total CO2 26 H 29 H (19-24) mmol/L ABG O2 Saturation 99.3 H 99.8 H (94-97) % ABG Hematocrit 24 L (34.0-46.0) % ABG Sodium (135-146) mmol/L ABG Potassium (3.4-4.5) mmol/L ABG Ionized Calcium (4.5-5.3) mg/dL ABG Glucose (75-99) mg/dL ABG Lactic Acid 2.5 H* (0.5-1.6) mmol/L Hemoglobin 8.0 L (13.0-17.5) gm/dL Sodium (137-145) mmol/L Chloride (98-107) mmol/L BUN (9-20) mg/dL Creatinine (0.66-1.25) mg/dL Glucose (74-99) mg/dL POC Glucose (mg/dL) (75-99) mg/dL Calcium (8.4-10.2) mg/dL Magnesium (1.6-2.3) mg/dL Alkaline Phosphatase (38-126) U/L Total Protein (6.3-8.2) g/dL Albumin (3.5-5.0) g/dL Arterial Blood Potassium (3.4-4.5) mmol/L Arterial Blood Glucose (75-99) mg/dL Crossmatch 04/13/20 04/13/20 04/13/20 Range/Units 15:50 15:50 15:50 WBC 22.8 H (3.8-10.6) k/uL RBC 2.58 L (4.30-5.90) m/uL Hgb 8.7 L D (13.0-17.5) gm/dL Hct 27.4 L (39.0-53.0) % MCV 106.5 H (80.0-100.0) fL RDW 20.2 H (11.5-15.5) % Neutrophils # (Manual) 21.20 H (1.3-7.7) k/uL Lymphocytes # (Manual) (1.0-4.8) k/uL Metamyelocytes # (Man) 0.23 H (0) k/uL Nucleated RBCs 3 H (0-0) /100 WBC Macrocytosis Marked A PT 12.6 H (9.0-12.0) sec INR 1.3 H (<1.2) APTT 30.7 H (22.0-30.0) sec Fibrinogen (200-500) mg/dL ABG pH (7.35-7.45) ABG pCO2 (35-45) mmHg ABG pO2 (83-108) mmHg ABG HCO3 (21-25) mmol/L ABG Total CO2 (19-24) mmol/L ABG O2 Saturation (94-97) % ABG Hematocrit (34.0-46.0) % ABG Sodium (135-146) mmol/L ABG Potassium (3.4-4.5) mmol/L ABG Ionized Calcium (4.5-5.3) mg/dL ABG Glucose (75-99) mg/dL ABG Lactic Acid (0.5-1.6) mmol/L Hemoglobin (13.0-17.5) gm/dL Sodium 136 L (137-145) mmol/L Chloride 108 H (98-107) mmol/L BUN (9-20) mg/dL Creatinine 0.60 L (0.66-1.25) mg/dL Glucose (74-99) mg/dL POC Glucose (mg/dL) (75-99) mg/dL Calcium 7.9 L (8.4-10.2) mg/dL Magnesium 2.5 H (1.6-2.3) mg/dL Alkaline Phosphatase 31 L (38-126) U/L Total Protein 3.7 L (6.3-8.2) g/dL Albumin 2.2 L (3.5-5.0) g/dL Arterial Blood Potassium (3.4-4.5) mmol/L Arterial Blood Glucose (75-99) mg/dL Crossmatch 04/13/20 04/13/20 04/13/20 Range/Units 15:55 16:52 18:02 WBC (3.8-10.6) k/uL RBC (4.30-5.90) m/uL Hgb (13.0-17.5) gm/dL Hct (39.0-53.0) % MCV (80.0-100.0) fL RDW (11.5-15.5) % Neutrophils # (Manual) (1.3-7.7) k/uL Lymphocytes # (Manual) (1.0-4.8) k/uL Metamyelocytes # (Man) (0) k/uL Nucleated RBCs (0-0) /100 WBC Macrocytosis PT (9.0-12.0) sec INR (<1.2) APTT (22.0-30.0) sec Fibrinogen (200-500) mg/dL ABG pH (7.35-7.45) ABG pCO2 (35-45) mmHg ABG pO2 (83-108) mmHg ABG HCO3 (21-25) mmol/L ABG Total CO2 (19-24) mmol/L ABG O2 Saturation (94-97) % ABG Hematocrit (34.0-46.0) % ABG Sodium (135-146) mmol/L ABG Potassium (3.4-4.5) mmol/L ABG Ionized Calcium (4.5-5.3) mg/dL ABG Glucose (75-99) mg/dL ABG Lactic Acid (0.5-1.6) mmol/L Hemoglobin (13.0-17.5) gm/dL Sodium (137-145) mmol/L Chloride (98-107) mmol/L BUN (9-20) mg/dL Creatinine (0.66-1.25) mg/dL Glucose (74-99) mg/dL POC Glucose (mg/dL) 112 H 106 H 140 H (75-99) mg/dL Calcium (8.4-10.2) mg/dL Magnesium (1.6-2.3) mg/dL Alkaline Phosphatase (38-126) U/L Total Protein (6.3-8.2) g/dL Albumin (3.5-5.0) g/dL Arterial Blood Potassium (3.4-4.5) mmol/L Arterial Blood Glucose (75-99) mg/dL Crossmatch 04/13/20 04/13/20 04/13/20 Range/Units 18:29 18:51 18:54 WBC (3.8-10.6) k/uL RBC (4.30-5.90) m/uL Hgb (13.0-17.5) gm/dL Hct (39.0-53.0) % MCV (80.0-100.0) fL RDW (11.5-15.5) % Neutrophils # (Manual) (1.3-7.7) k/uL Lymphocytes # (Manual) (1.0-4.8) k/uL Metamyelocytes # (Man) (0) k/uL Nucleated RBCs (0-0) /100 WBC Macrocytosis PT (9.0-12.0) sec INR (<1.2) APTT (22.0-30.0) sec Fibrinogen (200-500) mg/dL ABG pH (7.35-7.45) ABG pCO2 (35-45) mmHg ABG pO2 170 H (83-108) mmHg ABG HCO3 (21-25) mmol/L ABG Total CO2 26 H (19-24) mmol/L ABG O2 Saturation 99.0 H (94-97) % ABG Hematocrit (34.0-46.0) % ABG Sodium (135-146) mmol/L ABG Potassium (3.4-4.5) mmol/L ABG Ionized Calcium (4.5-5.3) mg/dL ABG Glucose (75-99) mg/dL ABG Lactic Acid (0.5-1.6) mmol/L Hemoglobin (13.0-17.5) gm/dL Sodium (137-145) mmol/L Chloride (98-107) mmol/L BUN (9-20) mg/dL Creatinine (0.66-1.25) mg/dL Glucose (74-99) mg/dL POC Glucose (mg/dL) 136 H 144 H (75-99) mg/dL Calcium (8.4-10.2) mg/dL Magnesium (1.6-2.3) mg/dL Alkaline Phosphatase (38-126) U/L Total Protein (6.3-8.2) g/dL Albumin (3.5-5.0) g/dL Arterial Blood Potassium (3.4-4.5) mmol/L Arterial Blood Glucose (75-99) mg/dL Crossmatch 04/13/20 04/13/20 04/13/20 Range/Units 18:56 20:04 21:01 WBC 23.3 H (3.8-10.6) k/uL RBC 2.64 L (4.30-5.90) m/uL Hgb 9.0 L (13.0-17.5) gm/dL Hct 28.0 L (39.0-53.0) % MCV 105.8 H (80.0-100.0) fL RDW 20.0 H (11.5-15.5) % Neutrophils # (Manual) 21.40 H (1.3-7.7) k/uL Lymphocytes # (Manual) (1.0-4.8) k/uL Metamyelocytes # (Man) (0) k/uL Nucleated RBCs (0-0) /100 WBC Macrocytosis Marked A PT (9.0-12.0) sec INR (<1.2) APTT (22.0-30.0) sec Fibrinogen (200-500) mg/dL ABG pH (7.35-7.45) ABG pCO2 (35-45) mmHg ABG pO2 (83-108) mmHg ABG HCO3 (21-25) mmol/L ABG Total CO2 (19-24) mmol/L ABG O2 Saturation (94-97) % ABG Hematocrit (34.0-46.0) % ABG Sodium (135-146) mmol/L ABG Potassium (3.4-4.5) mmol/L ABG Ionized Calcium (4.5-5.3) mg/dL ABG Glucose (75-99) mg/dL ABG Lactic Acid (0.5-1.6) mmol/L Hemoglobin (13.0-17.5) gm/dL Sodium (137-145) mmol/L Chloride (98-107) mmol/L BUN (9-20) mg/dL Creatinine (0.66-1.25) mg/dL Glucose (74-99) mg/dL POC Glucose (mg/dL) 141 H 137 H (75-99) mg/dL Calcium (8.4-10.2) mg/dL Magnesium (1.6-2.3) mg/dL Alkaline Phosphatase (38-126) U/L Total Protein (6.3-8.2) g/dL Albumin (3.5-5.0) g/dL Arterial Blood Potassium (3.4-4.5) mmol/L Arterial Blood Glucose (75-99) mg/dL Crossmatch 04/13/20 04/13/20 04/13/20 Range/Units 22:07 22:10 23:01 WBC 18.5 H (3.8-10.6) k/uL RBC 2.56 L (4.30-5.90) m/uL Hgb 8.8 L (13.0-17.5) gm/dL Hct 27.5 L (39.0-53.0) % MCV 107.3 H (80.0-100.0) fL RDW 20.3 H (11.5-15.5) % Neutrophils # (Manual) 16.60 H (1.3-7.7) k/uL Lymphocytes # (Manual) 0.74 L (1.0-4.8) k/uL Metamyelocytes # (Man) 0.37 H (0) k/uL Nucleated RBCs (0-0) /100 WBC Macrocytosis Marked A PT (9.0-12.0) sec INR (<1.2) APTT (22.0-30.0) sec Fibrinogen (200-500) mg/dL ABG pH (7.35-7.45) ABG pCO2 (35-45) mmHg ABG pO2 (83-108) mmHg ABG HCO3 (21-25) mmol/L ABG Total CO2 (19-24) mmol/L ABG O2 Saturation (94-97) % ABG Hematocrit (34.0-46.0) % ABG Sodium (135-146) mmol/L ABG Potassium (3.4-4.5) mmol/L ABG Ionized Calcium (4.5-5.3) mg/dL ABG Glucose (75-99) mg/dL ABG Lactic Acid (0.5-1.6) mmol/L Hemoglobin (13.0-17.5) gm/dL Sodium (137-145) mmol/L Chloride (98-107) mmol/L BUN (9-20) mg/dL Creatinine (0.66-1.25) mg/dL Glucose (74-99) mg/dL POC Glucose (mg/dL) 145 H 141 H (75-99) mg/dL Calcium (8.4-10.2) mg/dL Magnesium (1.6-2.3) mg/dL Alkaline Phosphatase (38-126) U/L Total Protein (6.3-8.2) g/dL Albumin (3.5-5.0) g/dL Arterial Blood Potassium (3.4-4.5) mmol/L Arterial Blood Glucose (75-99) mg/dL Crossmatch 04/13/20 04/14/20 04/14/20 Range/Units 23:54 00:51 02:03 WBC (3.8-10.6) k/uL RBC (4.30-5.90) m/uL Hgb (13.0-17.5) gm/dL Hct (39.0-53.0) % MCV (80.0-100.0) fL RDW (11.5-15.5) % Neutrophils # (Manual) (1.3-7.7) k/uL Lymphocytes # (Manual) (1.0-4.8) k/uL Metamyelocytes # (Man) (0) k/uL Nucleated RBCs (0-0) /100 WBC Macrocytosis PT (9.0-12.0) sec INR (<1.2) APTT (22.0-30.0) sec Fibrinogen (200-500) mg/dL ABG pH (7.35-7.45) ABG pCO2 (35-45) mmHg ABG pO2 (83-108) mmHg ABG HCO3 (21-25) mmol/L ABG Total CO2 (19-24) mmol/L ABG O2 Saturation (94-97) % ABG Hematocrit (34.0-46.0) % ABG Sodium (135-146) mmol/L ABG Potassium (3.4-4.5) mmol/L ABG Ionized Calcium (4.5-5.3) mg/dL ABG Glucose (75-99) mg/dL ABG Lactic Acid (0.5-1.6) mmol/L Hemoglobin (13.0-17.5) gm/dL Sodium (137-145) mmol/L Chloride (98-107) mmol/L BUN (9-20) mg/dL Creatinine (0.66-1.25) mg/dL Glucose (74-99) mg/dL POC Glucose (mg/dL) 138 H 125 H 130 H (75-99) mg/dL Calcium (8.4-10.2) mg/dL Magnesium (1.6-2.3) mg/dL Alkaline Phosphatase (38-126) U/L Total Protein (6.3-8.2) g/dL Albumin (3.5-5.0) g/dL Arterial Blood Potassium (3.4-4.5) mmol/L Arterial Blood Glucose (75-99) mg/dL Crossmatch 04/14/20 04/14/20 04/14/20 Range/Units 03:08 03:42 03:42 WBC 12.5 H (3.8-10.6) k/uL RBC 2.13 L (4.30-5.90) m/uL Hgb 7.0 L D (13.0-17.5) gm/dL Hct 22.6 L (39.0-53.0) % MCV 105.8 H (80.0-100.0) fL RDW 20.1 H (11.5-15.5) % Neutrophils # (Manual) 11.10 H (1.3-7.7) k/uL Lymphocytes # (Manual) 0.75 L (1.0-4.8) k/uL Metamyelocytes # (Man) 0.25 H (0) k/uL Nucleated RBCs (0-0) /100 WBC Macrocytosis Marked A PT (9.0-12.0) sec INR (<1.2) APTT (22.0-30.0) sec Fibrinogen (200-500) mg/dL ABG pH (7.35-7.45) ABG pCO2 (35-45) mmHg ABG pO2 (83-108) mmHg ABG HCO3 (21-25) mmol/L ABG Total CO2 (19-24) mmol/L ABG O2 Saturation (94-97) % ABG Hematocrit (34.0-46.0) % ABG Sodium (135-146) mmol/L ABG Potassium (3.4-4.5) mmol/L ABG Ionized Calcium (4.5-5.3) mg/dL ABG Glucose (75-99) mg/dL ABG Lactic Acid (0.5-1.6) mmol/L Hemoglobin (13.0-17.5) gm/dL Sodium (137-145) mmol/L Chloride 109 H (98-107) mmol/L BUN 23 H (9-20) mg/dL Creatinine (0.66-1.25) mg/dL Glucose 115 H (74-99) mg/dL POC Glucose (mg/dL) 129 H (75-99) mg/dL Calcium 7.4 L (8.4-10.2) mg/dL Magnesium (1.6-2.3) mg/dL Alkaline Phosphatase 24 L (38-126) U/L Total Protein 4.3 L (6.3-8.2) g/dL Albumin 2.7 L (3.5-5.0) g/dL Arterial Blood Potassium (3.4-4.5) mmol/L Arterial Blood Glucose (75-99) mg/dL Crossmatch 04/14/20 04/14/20 04/14/20 Range/Units 03:43 05:27 06:26 WBC (3.8-10.6) k/uL RBC (4.30-5.90) m/uL Hgb (13.0-17.5) gm/dL Hct (39.0-53.0) % MCV (80.0-100.0) fL RDW (11.5-15.5) % Neutrophils # (Manual) (1.3-7.7) k/uL Lymphocytes # (Manual) (1.0-4.8) k/uL Metamyelocytes # (Man) (0) k/uL Nucleated RBCs (0-0) /100 WBC Macrocytosis PT (9.0-12.0) sec INR (<1.2) APTT (22.0-30.0) sec Fibrinogen (200-500) mg/dL ABG pH (7.35-7.45) ABG pCO2 (35-45) mmHg ABG pO2 (83-108) mmHg ABG HCO3 (21-25) mmol/L ABG Total CO2 (19-24) mmol/L ABG O2 Saturation (94-97) % ABG Hematocrit (34.0-46.0) % ABG Sodium (135-146) mmol/L ABG Potassium (3.4-4.5) mmol/L ABG Ionized Calcium (4.5-5.3) mg/dL ABG Glucose (75-99) mg/dL ABG Lactic Acid (0.5-1.6) mmol/L Hemoglobin (13.0-17.5) gm/dL Sodium (137-145) mmol/L Chloride (98-107) mmol/L BUN (9-20) mg/dL Creatinine (0.66-1.25) mg/dL Glucose (74-99) mg/dL POC Glucose (mg/dL) 136 H 136 H 130 H (75-99) mg/dL Calcium (8.4-10.2) mg/dL Magnesium (1.6-2.3) mg/dL Alkaline Phosphatase (38-126) U/L Total Protein (6.3-8.2) g/dL Albumin (3.5-5.0) g/dL Arterial Blood Potassium (3.4-4.5) mmol/L Arterial Blood Glucose (75-99) mg/dL Crossmatch 04/14/20 04/14/20 04/14/20 Range/Units 06:55 06:56 08:11 WBC 11.7 H (3.8-10.6) k/uL RBC 2.35 L (4.30-5.90) m/uL Hgb 7.8 L (13.0-17.5) gm/dL Hct 24.3 L (39.0-53.0) % MCV 103.4 H (80.0-100.0) fL RDW 20.4 H (11.5-15.5) % Neutrophils # (Manual) (1.3-7.7) k/uL Lymphocytes # (Manual) (1.0-4.8) k/uL Metamyelocytes # (Man) (0) k/uL Nucleated RBCs (0-0) /100 WBC Macrocytosis Marked A PT (9.0-12.0) sec INR (<1.2) APTT (22.0-30.0) sec Fibrinogen (200-500) mg/dL ABG pH (7.35-7.45) ABG pCO2 (35-45) mmHg ABG pO2 (83-108) mmHg ABG HCO3 (21-25) mmol/L ABG Total CO2 (19-24) mmol/L ABG O2 Saturation (94-97) % ABG Hematocrit (34.0-46.0) % ABG Sodium (135-146) mmol/L ABG Potassium (3.4-4.5) mmol/L ABG Ionized Calcium (4.5-5.3) mg/dL ABG Glucose (75-99) mg/dL ABG Lactic Acid (0.5-1.6) mmol/L Hemoglobin (13.0-17.5) gm/dL Sodium (137-145) mmol/L Chloride (98-107) mmol/L BUN (9-20) mg/dL Creatinine (0.66-1.25) mg/dL Glucose (74-99) mg/dL POC Glucose (mg/dL) 130 H 110 H (75-99) mg/dL Calcium (8.4-10.2) mg/dL Magnesium (1.6-2.3) mg/dL Alkaline Phosphatase (38-126) U/L Total Protein (6.3-8.2) g/dL Albumin (3.5-5.0) g/dL Arterial Blood Potassium (3.4-4.5) mmol/L Arterial Blood Glucose (75-99) mg/dL Crossmatch 04/14/20 04/14/20 04/14/20 Range/Units 09:05 10:07 10:51 WBC (3.8-10.6) k/uL RBC (4.30-5.90) m/uL Hgb (13.0-17.5) gm/dL Hct (39.0-53.0) % MCV (80.0-100.0) fL RDW (11.5-15.5) % Neutrophils # (Manual) (1.3-7.7) k/uL Lymphocytes # (Manual) (1.0-4.8) k/uL Metamyelocytes # (Man) (0) k/uL Nucleated RBCs (0-0) /100 WBC Macrocytosis PT (9.0-12.0) sec INR (<1.2) APTT (22.0-30.0) sec Fibrinogen (200-500) mg/dL ABG pH (7.35-7.45) ABG pCO2 (35-45) mmHg ABG pO2 (83-108) mmHg ABG HCO3 (21-25) mmol/L ABG Total CO2 (19-24) mmol/L ABG O2 Saturation (94-97) % ABG Hematocrit (34.0-46.0) % ABG Sodium (135-146) mmol/L ABG Potassium (3.4-4.5) mmol/L ABG Ionized Calcium (4.5-5.3) mg/dL ABG Glucose (75-99) mg/dL ABG Lactic Acid (0.5-1.6) mmol/L Hemoglobin (13.0-17.5) gm/dL Sodium (137-145) mmol/L Chloride (98-107) mmol/L BUN (9-20) mg/dL Creatinine (0.66-1.25) mg/dL Glucose (74-99) mg/dL POC Glucose (mg/dL) 110 H 122 H 127 H (75-99) mg/dL Calcium (8.4-10.2) mg/dL Magnesium (1.6-2.3) mg/dL Alkaline Phosphatase (38-126) U/L Total Protein (6.3-8.2) g/dL Albumin (3.5-5.0) g/dL Arterial Blood Potassium (3.4-4.5) mmol/L Arterial Blood Glucose (75-99) mg/dL Crossmatch 04/14/20 Range/Units 12:19 WBC (3.8-10.6) k/uL RBC (4.30-5.90) m/uL Hgb (13.0-17.5) gm/dL Hct (39.0-53.0) % MCV (80.0-100.0) fL RDW (11.5-15.5) % Neutrophils # (Manual) (1.3-7.7) k/uL Lymphocytes # (Manual) (1.0-4.8) k/uL Metamyelocytes # (Man) (0) k/uL Nucleated RBCs (0-0) /100 WBC Macrocytosis PT (9.0-12.0) sec INR (<1.2) APTT (22.0-30.0) sec Fibrinogen (200-500) mg/dL ABG pH (7.35-7.45) ABG pCO2 (35-45) mmHg ABG pO2 (83-108) mmHg ABG HCO3 (21-25) mmol/L ABG Total CO2 (19-24) mmol/L ABG O2 Saturation (94-97) % ABG Hematocrit (34.0-46.0) % ABG Sodium (135-146) mmol/L ABG Potassium (3.4-4.5) mmol/L ABG Ionized Calcium (4.5-5.3) mg/dL ABG Glucose (75-99) mg/dL ABG Lactic Acid (0.5-1.6) mmol/L Hemoglobin (13.0-17.5) gm/dL Sodium (137-145) mmol/L Chloride (98-107) mmol/L BUN (9-20) mg/dL Creatinine (0.66-1.25) mg/dL Glucose (74-99) mg/dL POC Glucose (mg/dL) 166 H (75-99) mg/dL Calcium (8.4-10.2) mg/dL Magnesium (1.6-2.3) mg/dL Alkaline Phosphatase (38-126) U/L Total Protein (6.3-8.2) g/dL Albumin (3.5-5.0) g/dL Arterial Blood Potassium (3.4-4.5) mmol/L Arterial Blood Glucose (75-99) mg/dL Crossmatch Assessment and Plan Plan: #1. Significant triple vessel coronary artery disease, status post four-vessel coronary artery bypass grafting with KEANE to the LAD, left radial arterial graft to the OM, SVG to the PDA, SVG to the diagonal, with left radial artery harvest, left lower extremity endoscopic vein harvest, and exclusion of the left atrial appendage with 35mm Atriclip, postoperative day #1 and the patient is doing well and then the patient was extubated without any major difficulties. Hemodynamically stable. Received blood products including fresh frozen plasma, packed RBC and platelets. Output from the chest tube has been noted. Hemodynamically stable. #2. Post thoracotomy and the patient has chest tubes in place. Hemodynamically stable. Extubated blood any major difficulties currently on 2 L of oxygen by na blanca cannula. #3. Coronary artery disease with previous history of PCI and stenting of the RCA #4. 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 Hypertension #7. Hyperlipidemia #8. Osteoarthritis #9 postoperative anemia, expected outcome of surgery, hemoglobin is at 7.8. No significant output from the chest tubes. Plan Continue using incentive spirometer. Remove the [place] catheter. Keep the chest tubes in place. Provide the patient some soft diet. Routine postoperative care. Chest x-ray was reviewed and is adequate expansion of both lungs.
--- NOTE | 2020-04-14 12:43 | P.PN ---
Subjective Progress Note Date: 04/14/20 - History of Present Illness 79-year-old male one of my office patient with long-standing history of CAD post MO with history of PCI and stent placement of the right coronary artery disease over 10 years ago who is known to have history of hypertension hyperlipidemia and previous history of tobacco dependency patient has been doing natural management for many years has become slightly bit symptomatic lately with significant shortness of breath and decrease endurance when attempted to walk and ambulate was seen Dr. FRANK patel and end up going for stress test showed moderate area of infarct ischemic change patient ended up going for heart cath on 03/09/2020 finding was consistent with 80 percentile blockage of the LAD, 70% blockage in the mid LAD, 90% blockage of the circumflex and 95% blockage of the RCA. Patient was seen cardiothoracic surgeon and plan for bypass surgery with surgery scheduled for today ended up having 4 vessel bypass surgery and was sent to the ICU on mechanical ventilation. Patient otherwise hemodynamically stable has 2 mediastinal and left pleural tube in place has been draining some. 04/14: Patient is seen today in the intensive care unit. Patient is in the recliner and appears to be comfortable. He was successfully extubated last evening. He is status post one unit of packed RBCs this morning. Patient has been afebrile, heart rate 84, blood pressure 113/43, pulse ox 99% on 2 L nasal cannula. Blood sugars are running between 110 and 130. He has been on insulin drip at 2 units currently on hold for blood sugar 110. Repeat blood work revealed WBC 11.7, hemoglobin 7.8. Sodium 138, potassium 5.0, chloride 109, CO2 25, BUN 23 and creatinine 0.79. radiation monitor is a sinus rhythm. Review of systems CONSTITUTIONAL: Denies fever, denies chills. EYES: No icterus sclerae, no conjunctivitis. EARS, NOSE, MOUTH, THROAT, and FACE: No sore throat, lymphadenopathy, carotid bruits or deformity. RESPIRATORY: On mechanical ventilation. And 3 chest tubes in. CARDIOVASCULAR: 4 vessel CABG with incision looks fine. Postop surgical pain. GASTROINTESTINAL: No Abd pain, Nausea or vomiting, no Diarrhea or constipation, No GI Bleed, no distention or masses. GENITOURINARY: Negative for Hematuria or UTI, no kidney stones. INTEGUMENT/BREAST: Negative for any muscular injury with mild osteoarthritis.. HEMATOLOGIC/LYMPHATIC: Negative for bleed or purpura. MUSCULOSKELTAL: Negative for Myalgia or arthralgia. NEURLOGICAL: Sedated on mechanical ventilation is still awaking for pain stimuli. BEHAVIORAL/PSYCH: Negative. ENDOCRINE: Negative. Blood sugars controlled Physical examination General Appearance: This is a 79-year-old male. He is sitting up in a recliner and appears to be fairly comfortable.. Neck HEENT: Supple, no lymphadenopathy, no thyroid enlargement, no carotid bruits. Lungs: Decreased breath sound the left side upon mild expiratory wheezes with rhonchi. Chest Wall: Incision on the chest wall looks fine with no sign of bleeding, 2 mediastinal and left pleural chest tube. Heart: Regular rate and rhythm, S1, S2 normal, no murmur, rub or gallop. Back: Symmetric, no curvature, ROM normal, no CVA tenderness. Abdomen: Soft, non-tender, bowel sounds present, no masses, no organomegaly. Extremities: Trace edema and decreased pulses bilaterally. Pulses: 2+ and symmetric. Skin: Skin color, texture, tugor normal, no rashes or lesions. Neurologic: Patient is awake alert and oriented 3. No focal neural deficits. Assessment and plan 1 post triple vessel coronary disease post 4 vessel coronary artery bypass grafting with KEANE to the LAD, left radial arterial graft to the OM, SVG to the PDA, SVG to the diagonal with left radial artery harvest along with left lower extremity endoscopy Vein harvest. 2 post surgical respiratory failure on mechanical ventilation been managed by pulmonary critical care. Patient has been successfully extubated. 3 hypertension: Was on metoprolol previous to surgery patient will be on metoprolol along with lisinopril. 4 hyperlipidemia: Was on atorvastatin 80 mg daily resume medication. 5 BPH: Continue Flomax watch for any urinary retention. 6 history of osteoarthritis post right total knee arthroplasty fusion ago has been doing well. 7 hyperglycemia: Accu-Chek with sliding scales coverage and be done watch for any significant hyperglycemia. Patient is on insulin drip. 8 mild anemia: Post surgery most likely from surgical blood loss was start patient on iron supplement along with multivitamins. Next 9 mild reactive airway: Was started on DuoNeb by pulmonary continue bronchodilator along with O2 for now. 10 DVT prophylaxis: Patient will be on heparin subcutaneous. 11 GI prophylaxis: Pantoprazole IV. CODE STATUS: Full code. Discharge plan: To be determined Impression and plan of care have been directed as dictated by the signing physician. Alisson Penny nurse practitioner acting as scribe for signing physician. Objective - Vital Signs Vital signs: Vital Signs Temp 36.6 F L 04/14/20 08:00 Pulse 81 04/14/20 08:00 Resp 17 04/14/20 08:00 BP 105/56 04/14/20 07:30 Pulse Ox 98 04/14/20 08:00 Intake & Output 04/13/20 04/14/20 04/14/20 18:59 06:59 18:59 Intake Total 1365.49 3238.034 438.085 Output Total 4965 1290 100 Balance -3599.51 1948.034 338.085 Weight 87.5 kg Intake: IV 467.5 2557.0 429.5 ACETAMINOPHEN IV (For NPO 100 100 ) 1,000 mg In Empty Bag 1 bag @ 400 mls/hr IVPB Q6HR [facility] Rx#:[id number] CO/CI 80 380 60 Nitroglycerin-D5w Pmx 50 4.5 18.0 1.5 mg In Dextrose/Water 1 250ml.bag @ 5 MCG/MIN 1.5 mls/hr IV .Q24H [facility] Rx#: [id number] PRBC's 310 Pressure Bags 99 18 Sodium Chloride 0.9% 1, 150 600 100 000 ml @ 50 mls/hr IV . Q20H [facility] Rx#:[id number] albumin 5% 1000 250 ceFAZolin 2 gm In Sodium 100 50 Chloride 0.9% 50 ml @ 100 mls/hr IVPB Q8HR [facility] Rx# :[id number] Intake, IV Titration 15.99 21.034 8.585 Amount Insulin Regular 100 unit 21.034 8.585 In Sodium Chloride 0.9% 100 ml @ Per Protocol IV .Q0M [facility] Rx#:[id number] propofoL 1,000 mg In 15.99 Empty Bag 1 bag @ Titrate IV .Q0M [facility] Rx#: [id number] Tube Feeding 150 Blood Product 882 310 Ffp 24 Cpd Unit 284 [id number] Ffp 24 Cpd Unit 317 [id number] Platelet Pheresis Acd-A 281 Pasc 1 Unit [id number] Rc As-1 Unit 310 [id number] Other 200 Output: Chest Tube Drainage 495 760 60 Bilateral Mediastinal 250 430 40 Left 245 330 20 Drainage 60 35 Left Arm 20 5 Left Calf 40 30 Urine 1410 495 40 Estimated Blood Loss 3000 Other: Voiding Method Indwelling Catheter Indwelling Catheter Indwelling Catheter ABP, PAP, CO, CI - Last Documented Arterial Blood Pressure 115/46 Pulmonary Artery Pressure 28/8 Cardiac Output 6.1 Cardiac Index 3.1 - Labs CBC & Chem 7: 04/14/20 06:55 04/14/20 03:42 Labs: Abnormal Lab Results - Last 24 Hours (Table) 04/10/20 04/13/20 04/13/20 Range/Units 10:06 08:43 11:03 WBC (3.8-10.6) k/uL RBC (4.30-5.90) m/uL Hgb (13.0-17.5) gm/dL Hct (39.0-53.0) % MCV (80.0-100.0) fL RDW (11.5-15.5) % Neutrophils # (Manual) (1.3-7.7) k/uL Lymphocytes # (Manual) (1.0-4.8) k/uL Metamyelocytes # (Man) (0) k/uL Nucleated RBCs (0-0) /100 WBC Macrocytosis PT (9.0-12.0) sec INR (<1.2) APTT (22.0-30.0) sec Fibrinogen (200-500) mg/dL ABG pH (7.35-7.45) ABG pCO2 (35-45) mmHg ABG pO2 357 H 243 H (83-108) mmHg ABG HCO3 27 H (21-25) mmol/L ABG Total CO2 29 H 27 H (19-24) mmol/L ABG O2 Saturation 100.0 H 99.8 H (94-97) % ABG Hematocrit 32 L 28 L (34.0-46.0) % ABG Sodium (135-146) mmol/L ABG Potassium (3.4-4.5) mmol/L ABG Ionized Calcium (4.5-5.3) mg/dL ABG Glucose 118 H (75-99) mg/dL ABG Lactic Acid (0.5-1.6) mmol/L Hemoglobin 10.3 L 9.1 L (13.0-17.5) gm/dL Sodium (137-145) mmol/L Chloride (98-107) mmol/L BUN (9-20) mg/dL Creatinine (0.66-1.25) mg/dL Glucose (74-99) mg/dL POC Glucose (mg/dL) (75-99) mg/dL Calcium (8.4-10.2) mg/dL Magnesium (1.6-2.3) mg/dL Alkaline Phosphatase (38-126) U/L Total Protein (6.3-8.2) g/dL Albumin (3.5-5.0) g/dL Arterial Blood Potassium (3.4-4.5) mmol/L Arterial Blood Glucose 118 H (75-99) mg/dL Crossmatch See Detail 04/13/20 04/13/20 04/13/20 Range/Units 12:10 12:47 13:15 WBC (3.8-10.6) k/uL RBC (4.30-5.90) m/uL Hgb (13.0-17.5) gm/dL Hct (39.0-53.0) % MCV (80.0-100.0) fL RDW (11.5-15.5) % Neutrophils # (Manual) (1.3-7.7) k/uL Lymphocytes # (Manual) (1.0-4.8) k/uL Metamyelocytes # (Man) (0) k/uL Nucleated RBCs (0-0) /100 WBC Macrocytosis PT (9.0-12.0) sec INR (<1.2) APTT (22.0-30.0) sec Fibrinogen (200-500) mg/dL ABG pH (7.35-7.45) ABG pCO2 (35-45) mmHg ABG pO2 >420 H 246 H 377 H (83-108) mmHg ABG HCO3 (21-25) mmol/L ABG Total CO2 25 H 25 H (19-24) mmol/L ABG O2 Saturation 100.0 H 99.9 H 100.0 H (94-97) % ABG Hematocrit 20 L* 25 L 25 L (34.0-46.0) % ABG Sodium 132 L (135-146) mmol/L ABG Potassium 5.9 H (3.4-4.5) mmol/L ABG Ionized Calcium 4.0 L 4.3 L 4.3 L (4.5-5.3) mg/dL ABG Glucose 205 H 178 H 165 H (75-99) mg/dL ABG Lactic Acid 1.7 H 2.5 H* (0.5-1.6) mmol/L Hemoglobin 6.4 L* 8.1 L 8.2 L (13.0-17.5) gm/dL Sodium (137-145) mmol/L Chloride (98-107) mmol/L BUN (9-20) mg/dL Creatinine (0.66-1.25) mg/dL Glucose (74-99) mg/dL POC Glucose (mg/dL) (75-99) mg/dL Calcium (8.4-10.2) mg/dL Magnesium (1.6-2.3) mg/dL Alkaline Phosphatase (38-126) U/L Total Protein (6.3-8.2) g/dL Albumin (3.5-5.0) g/dL Arterial Blood Potassium 5.9 H (3.4-4.5) mmol/L Arterial Blood Glucose 205 H 178 H 165 H (75-99) mg/dL Crossmatch 04/13/20 04/13/20 04/13/20 Range/Units 15:10 15:20 15:50 WBC (3.8-10.6) k/uL RBC (4.30-5.90) m/uL Hgb (13.0-17.5) gm/dL Hct (39.0-53.0) % MCV (80.0-100.0) fL RDW (11.5-15.5) % Neutrophils # (Manual) (1.3-7.7) k/uL Lymphocytes # (Manual) (1.0-4.8) k/uL Metamyelocytes # (Man) (0) k/uL Nucleated RBCs (0-0) /100 WBC Macrocytosis PT (9.0-12.0) sec INR (<1.2) APTT (22.0-30.0) sec Fibrinogen 117 L (200-500) mg/dL ABG pH 7.33 L (7.35-7.45) ABG pCO2 51 H (35-45) mmHg ABG pO2 157 H 339 H (83-108) mmHg ABG HCO3 27 H (21-25) mmol/L ABG Total CO2 26 H 29 H (19-24) mmol/L ABG O2 Saturation 99.3 H 99.8 H (94-97) % ABG Hematocrit 24 L (34.0-46.0) % ABG Sodium (135-146) mmol/L ABG Potassium (3.4-4.5) mmol/L ABG Ionized Calcium (4.5-5.3) mg/dL ABG Glucose (75-99) mg/dL ABG Lactic Acid 2.5 H* (0.5-1.6) mmol/L Hemoglobin 8.0 L (13.0-17.5) gm/dL Sodium (137-145) mmol/L Chloride (98-107) mmol/L BUN (9-20) mg/dL Creatinine (0.66-1.25) mg/dL Glucose (74-99) mg/dL POC Glucose (mg/dL) (75-99) mg/dL Calcium (8.4-10.2) mg/dL Magnesium (1.6-2.3) mg/dL Alkaline Phosphatase (38-126) U/L Total Protein (6.3-8.2) g/dL Albumin (3.5-5.0) g/dL Arterial Blood Potassium (3.4-4.5) mmol/L Arterial Blood Glucose (75-99) mg/dL Crossmatch 04/13/20 04/13/20 04/13/20 Range/Units 15:50 15:50 15:50 WBC 22.8 H (3.8-10.6) k/uL RBC 2.58 L (4.30-5.90) m/uL Hgb 8.7 L D (13.0-17.5) gm/dL Hct 27.4 L (39.0-53.0) % MCV 106.5 H (80.0-100.0) fL RDW 20.2 H (11.5-15.5) % Neutrophils # (Manual) 21.20 H (1.3-7.7) k/uL Lymphocytes # (Manual) (1.0-4.8) k/uL Metamyelocytes # (Man) 0.23 H (0) k/uL Nucleated RBCs 3 H (0-0) /100 WBC Macrocytosis Marked A PT 12.6 H (9.0-12.0) sec INR 1.3 H (<1.2) APTT 30.7 H (22.0-30.0) sec Fibrinogen (200-500) mg/dL ABG pH (7.35-7.45) ABG pCO2 (35-45) mmHg ABG pO2 (83-108) mmHg ABG HCO3 (21-25) mmol/L ABG Total CO2 (19-24) mmol/L ABG O2 Saturation (94-97) % ABG Hematocrit (34.0-46.0) % ABG Sodium (135-146) mmol/L ABG Potassium (3.4-4.5) mmol/L ABG Ionized Calcium (4.5-5.3) mg/dL ABG Glucose (75-99) mg/dL ABG Lactic Acid (0.5-1.6) mmol/L Hemoglobin (13.0-17.5) gm/dL Sodium 136 L (137-145) mmol/L Chloride 108 H (98-107) mmol/L BUN (9-20) mg/dL Creatinine 0.60 L (0.66-1.25) mg/dL Glucose (74-99) mg/dL POC Glucose (mg/dL) (75-99) mg/dL Calcium 7.9 L (8.4-10.2) mg/dL Magnesium 2.5 H (1.6-2.3) mg/dL Alkaline Phosphatase 31 L (38-126) U/L Total Protein 3.7 L (6.3-8.2) g/dL Albumin 2.2 L (3.5-5.0) g/dL Arterial Blood Potassium (3.4-4.5) mmol/L Arterial Blood Glucose (75-99) mg/dL Crossmatch 04/13/20 04/13/20 04/13/20 Range/Units 15:55 16:52 18:02 WBC (3.8-10.6) k/uL RBC (4.30-5.90) m/uL Hgb (13.0-17.5) gm/dL Hct (39.0-53.0) % MCV (80.0-100.0) fL RDW (11.5-15.5) % Neutrophils # (Manual) (1.3-7.7) k/uL Lymphocytes # (Manual) (1.0-4.8) k/uL Metamyelocytes # (Man) (0) k/uL Nucleated RBCs (0-0) /100 WBC Macrocytosis PT (9.0-12.0) sec INR (<1.2) APTT (22.0-30.0) sec Fibrinogen (200-500) mg/dL ABG pH (7.35-7.45) ABG pCO2 (35-45) mmHg ABG pO2 (83-108) mmHg ABG HCO3 (21-25) mmol/L ABG Total CO2 (19-24) mmol/L ABG O2 Saturation (94-97) % ABG Hematocrit (34.0-46.0) % ABG Sodium (135-146) mmol/L ABG Potassium (3.4-4.5) mmol/L ABG Ionized Calcium (4.5-5.3) mg/dL ABG Glucose (75-99) mg/dL ABG Lactic Acid (0.5-1.6) mmol/L Hemoglobin (13.0-17.5) gm/dL Sodium (137-145) mmol/L Chloride (98-107) mmol/L BUN (9-20) mg/dL Creatinine (0.66-1.25) mg/dL Glucose (74-99) mg/dL POC Glucose (mg/dL) 112 H 106 H 140 H (75-99) mg/dL Calcium (8.4-10.2) mg/dL Magnesium (1.6-2.3) mg/dL Alkaline Phosphatase (38-126) U/L Total Protein (6.3-8.2) g/dL Albumin (3.5-5.0) g/dL Arterial Blood Potassium (3.4-4.5) mmol/L Arterial Blood Glucose (75-99) mg/dL Crossmatch 04/13/20 04/13/20 04/13/20 Range/Units 18:29 18:51 18:54 WBC (3.8-10.6) k/uL RBC (4.30-5.90) m/uL Hgb (13.0-17.5) gm/dL Hct (39.0-53.0) % MCV (80.0-100.0) fL RDW (11.5-15.5) % Neutrophils # (Manual) (1.3-7.7) k/uL Lymphocytes # (Manual) (1.0-4.8) k/uL Metamyelocytes # (Man) (0) k/uL Nucleated RBCs (0-0) /100 WBC Macrocytosis PT (9.0-12.0) sec INR (<1.2) APTT (22.0-30.0) sec Fibrinogen (200-500) mg/dL ABG pH (7.35-7.45) ABG pCO2 (35-45) mmHg ABG pO2 170 H (83-108) mmHg ABG HCO3 (21-25) mmol/L ABG Total CO2 26 H (19-24) mmol/L ABG O2 Saturation 99.0 H (94-97) % ABG Hematocrit (34.0-46.0) % ABG Sodium (135-146) mmol/L ABG Potassium (3.4-4.5) mmol/L ABG Ionized Calcium (4.5-5.3) mg/dL ABG Glucose (75-99) mg/dL ABG Lactic Acid (0.5-1.6) mmol/L Hemoglobin (13.0-17.5) gm/dL Sodium (137-145) mmol/L Chloride (98-107) mmol/L BUN (9-20) mg/dL Creatinine (0.66-1.25) mg/dL Glucose (74-99) mg/dL POC Glucose (mg/dL) 136 H 144 H (75-99) mg/dL Calcium (8.4-10.2) mg/dL Magnesium (1.6-2.3) mg/dL Alkaline Phosphatase (38-126) U/L Total Protein (6.3-8.2) g/dL Albumin (3.5-5.0) g/dL Arterial Blood Potassium (3.4-4.5) mmol/L Arterial Blood Glucose (75-99) mg/dL Crossmatch 04/13/20 04/13/20 04/13/20 Range/Units 18:56 20:04 21:01 WBC 23.3 H (3.8-10.6) k/uL RBC 2.64 L (4.30-5.90) m/uL Hgb 9.0 L (13.0-17.5) gm/dL Hct 28.0 L (39.0-53.0) % MCV 105.8 H (80.0-100.0) fL RDW 20.0 H (11.5-15.5) % Neutrophils # (Manual) 21.40 H (1.3-7.7) k/uL Lymphocytes # (Manual) (1.0-4.8) k/uL Metamyelocytes # (Man) (0) k/uL Nucleated RBCs (0-0) /100 WBC Macrocytosis Marked A PT (9.0-12.0) sec INR (<1.2) APTT (22.0-30.0) sec Fibrinogen (200-500) mg/dL ABG pH (7.35-7.45) ABG pCO2 (35-45) mmHg ABG pO2 (83-108) mmHg ABG HCO3 (21-25) mmol/L ABG Total CO2 (19-24) mmol/L ABG O2 Saturation (94-97) % ABG Hematocrit (34.0-46.0) % ABG Sodium (135-146) mmol/L ABG Potassium (3.4-4.5) mmol/L ABG Ionized Calcium (4.5-5.3) mg/dL ABG Glucose (75-99) mg/dL ABG Lactic Acid (0.5-1.6) mmol/L Hemoglobin (13.0-17.5) gm/dL Sodium (137-145) mmol/L Chloride (98-107) mmol/L BUN (9-20) mg/dL Creatinine (0.66-1.25) mg/dL Glucose (74-99) mg/dL POC Glucose (mg/dL) 141 H 137 H (75-99) mg/dL Calcium (8.4-10.2) mg/dL Magnesium (1.6-2.3) mg/dL Alkaline Phosphatase (38-126) U/L Total Protein (6.3-8.2) g/dL Albumin (3.5-5.0) g/dL Arterial Blood Potassium (3.4-4.5) mmol/L Arterial Blood Glucose (75-99) mg/dL Crossmatch 04/13/20 04/13/20 04/13/20 Range/Units 22:07 22:10 23:01 WBC 18.5 H (3.8-10.6) k/uL RBC 2.56 L (4.30-5.90) m/uL Hgb 8.8 L (13.0-17.5) gm/dL Hct 27.5 L (39.0-53.0) % MCV 107.3 H (80.0-100.0) fL RDW 20.3 H (11.5-15.5) % Neutrophils # (Manual) 16.60 H (1.3-7.7) k/uL Lymphocytes # (Manual) 0.74 L (1.0-4.8) k/uL Metamyelocytes # (Man) 0.37 H (0) k/uL Nucleated RBCs (0-0) /100 WBC Macrocytosis Marked A PT (9.0-12.0) sec INR (<1.2) APTT (22.0-30.0) sec Fibrinogen (200-500) mg/dL ABG pH (7.35-7.45) ABG pCO2 (35-45) mmHg ABG pO2 (83-108) mmHg ABG HCO3 (21-25) mmol/L ABG Total CO2 (19-24) mmol/L ABG O2 Saturation (94-97) % ABG Hematocrit (34.0-46.0) % ABG Sodium (135-146) mmol/L ABG Potassium (3.4-4.5) mmol/L ABG Ionized Calcium (4.5-5.3) mg/dL ABG Glucose (75-99) mg/dL ABG Lactic Acid (0.5-1.6) mmol/L Hemoglobin (13.0-17.5) gm/dL Sodium (137-145) mmol/L Chloride (98-107) mmol/L BUN (9-20) mg/dL Creatinine (0.66-1.25) mg/dL Glucose (74-99) mg/dL POC Glucose (mg/dL) 145 H 141 H (75-99) mg/dL Calcium (8.4-10.2) mg/dL Magnesium (1.6-2.3) mg/dL Alkaline Phosphatase (38-126) U/L Total Protein (6.3-8.2) g/dL Albumin (3.5-5.0) g/dL Arterial Blood Potassium (3.4-4.5) mmol/L Arterial Blood Glucose (75-99) mg/dL Crossmatch 04/13/20 04/14/20 04/14/20 Range/Units 23:54 00:51 02:03 WBC (3.8-10.6) k/uL RBC (4.30-5.90) m/uL Hgb (13.0-17.5) gm/dL Hct (39.0-53.0) % MCV (80.0-100.0) fL RDW (11.5-15.5) % Neutrophils # (Manual) (1.3-7.7) k/uL Lymphocytes # (Manual) (1.0-4.8) k/uL Metamyelocytes # (Man) (0) k/uL Nucleated RBCs (0-0) /100 WBC Macrocytosis PT (9.0-12.0) sec INR (<1.2) APTT (22.0-30.0) sec Fibrinogen (200-500) mg/dL ABG pH (7.35-7.45) ABG pCO2 (35-45) mmHg ABG pO2 (83-108) mmHg ABG HCO3 (21-25) mmol/L ABG Total CO2 (19-24) mmol/L ABG O2 Saturation (94-97) % ABG Hematocrit (34.0-46.0) % ABG Sodium (135-146) mmol/L ABG Potassium (3.4-4.5) mmol/L ABG Ionized Calcium (4.5-5.3) mg/dL ABG Glucose (75-99) mg/dL ABG Lactic Acid (0.5-1.6) mmol/L Hemoglobin (13.0-17.5) gm/dL Sodium (137-145) mmol/L Chloride (98-107) mmol/L BUN (9-20) mg/dL Creatinine (0.66-1.25) mg/dL Glucose (74-99) mg/dL POC Glucose (mg/dL) 138 H 125 H 130 H (75-99) mg/dL Calcium (8.4-10.2) mg/dL Magnesium (1.6-2.3) mg/dL Alkaline Phosphatase (38-126) U/L Total Protein (6.3-8.2) g/dL Albumin (3.5-5.0) g/dL Arterial Blood Potassium (3.4-4.5) mmol/L Arterial Blood Glucose (75-99) mg/dL Crossmatch 04/14/20 04/14/20 04/14/20 Range/Units 03:08 03:42 03:42 WBC 12.5 H (3.8-10.6) k/uL RBC 2.13 L (4.30-5.90) m/uL Hgb 7.0 L D (13.0-17.5) gm/dL Hct 22.6 L (39.0-53.0) % MCV 105.8 H (80.0-100.0) fL RDW 20.1 H (11.5-15.5) % Neutrophils # (Manual) 11.10 H (1.3-7.7) k/uL Lymphocytes # (Manual) 0.75 L (1.0-4.8) k/uL Metamyelocytes # (Man) 0.25 H (0) k/uL Nucleated RBCs (0-0) /100 WBC Macrocytosis Marked A PT (9.0-12.0) sec INR (<1.2) APTT (22.0-30.0) sec Fibrinogen (200-500) mg/dL ABG pH (7.35-7.45) ABG pCO2 (35-45) mmHg ABG pO2 (83-108) mmHg ABG HCO3 (21-25) mmol/L ABG Total CO2 (19-24) mmol/L ABG O2 Saturation (94-97) % ABG Hematocrit (34.0-46.0) % ABG Sodium (135-146) mmol/L ABG Potassium (3.4-4.5) mmol/L ABG Ionized Calcium (4.5-5.3) mg/dL ABG Glucose (75-99) mg/dL ABG Lactic Acid (0.5-1.6) mmol/L Hemoglobin (13.0-17.5) gm/dL Sodium (137-145) mmol/L Chloride 109 H (98-107) mmol/L BUN 23 H (9-20) mg/dL Creatinine (0.66-1.25) mg/dL Glucose 115 H (74-99) mg/dL POC Glucose (mg/dL) 129 H (75-99) mg/dL Calcium 7.4 L (8.4-10.2) mg/dL Magnesium (1.6-2.3) mg/dL Alkaline Phosphatase 24 L (38-126) U/L Total Protein 4.3 L (6.3-8.2) g/dL Albumin 2.7 L (3.5-5.0) g/dL Arterial Blood Potassium (3.4-4.5) mmol/L Arterial Blood Glucose (75-99) mg/dL Crossmatch 04/14/20 04/14/20 04/14/20 Range/Units 03:43 05:27 06:26 WBC (3.8-10.6) k/uL RBC (4.30-5.90) m/uL Hgb (13.0-17.5) gm/dL Hct (39.0-53.0) % MCV (80.0-100.0) fL RDW (11.5-15.5) % Neutrophils # (Manual) (1.3-7.7) k/uL Lymphocytes # (Manual) (1.0-4.8) k/uL Metamyelocytes # (Man) (0) k/uL Nucleated RBCs (0-0) /100 WBC Macrocytosis PT (9.0-12.0) sec INR (<1.2) APTT (22.0-30.0) sec Fibrinogen (200-500) mg/dL ABG pH (7.35-7.45) ABG pCO2 (35-45) mmHg ABG pO2 (83-108) mmHg ABG HCO3 (21-25) mmol/L ABG Total CO2 (19-24) mmol/L ABG O2 Saturation (94-97) % ABG Hematocrit (34.0-46.0) % ABG Sodium (135-146) mmol/L ABG Potassium (3.4-4.5) mmol/L ABG Ionized Calcium (4.5-5.3) mg/dL ABG Glucose (75-99) mg/dL ABG Lactic Acid (0.5-1.6) mmol/L Hemoglobin (13.0-17.5) gm/dL Sodium (137-145) mmol/L Chloride (98-107) mmol/L BUN (9-20) mg/dL Creatinine (0.66-1.25) mg/dL Glucose (74-99) mg/dL POC Glucose (mg/dL) 136 H 136 H 130 H (75-99) mg/dL Calcium (8.4-10.2) mg/dL Magnesium (1.6-2.3) mg/dL Alkaline Phosphatase (38-126) U/L Total Protein (6.3-8.2) g/dL Albumin (3.5-5.0) g/dL Arterial Blood Potassium (3.4-4.5) mmol/L Arterial Blood Glucose (75-99) mg/dL Crossmatch 04/14/20 04/14/20 04/14/20 Range/Units 06:55 06:56 08:11 WBC 11.7 H (3.8-10.6) k/uL RBC 2.35 L (4.30-5.90) m/uL Hgb 7.8 L (13.0-17.5) gm/dL Hct 24.3 L (39.0-53.0) % MCV 103.4 H (80.0-100.0) fL RDW 20.4 H (11.5-15.5) % Neutrophils # (Manual) (1.3-7.7) k/uL Lymphocytes # (Manual) (1.0-4.8) k/uL Metamyelocytes # (Man) (0) k/uL Nucleated RBCs (0-0) /100 WBC Macrocytosis Marked A PT (9.0-12.0) sec INR (<1.2) APTT (22.0-30.0) sec Fibrinogen (200-500) mg/dL ABG pH (7.35-7.45) ABG pCO2 (35-45) mmHg ABG pO2 (83-108) mmHg ABG HCO3 (21-25) mmol/L ABG Total CO2 (19-24) mmol/L ABG O2 Saturation (94-97) % ABG Hematocrit (34.0-46.0) % ABG Sodium (135-146) mmol/L ABG Potassium (3.4-4.5) mmol/L ABG Ionized Calcium (4.5-5.3) mg/dL ABG Glucose (75-99) mg/dL ABG Lactic Acid (0.5-1.6) mmol/L Hemoglobin (13.0-17.5) gm/dL Sodium (137-145) mmol/L Chloride (98-107) mmol/L BUN (9-20) mg/dL Creatinine (0.66-1.25) mg/dL Glucose (74-99) mg/dL POC Glucose (mg/dL) 130 H 110 H (75-99) mg/dL Calcium (8.4-10.2) mg/dL Magnesium (1.6-2.3) mg/dL Alkaline Phosphatase (38-126) U/L Total Protein (6.3-8.2) g/dL Albumin (3.5-5.0) g/dL Arterial Blood Potassium (3.4-4.5) mmol/L Arterial Blood Glucose (75-99) mg/dL Crossmatch
[2020-04-14 13:03] LABS: Glucose,Whole Blood 167 mg/dL (75-99)
[2020-04-14 13:57] LABS: Glucose,Whole Blood 138 mg/dL (75-99)
[2020-04-14 15:14] LABS: Glucose,Whole Blood 110 mg/dL (75-99)
[2020-04-14] MEDS: KETOROLAC 30 MG/ML 1 ML VIAL IVP SCH ×2 (15:24→20:35)
[2020-04-14 16:01] LABS: Glucose,Whole Blood 116 mg/dL (75-99)
[2020-04-14 17:14] LABS: Glucose,Whole Blood 125 mg/dL (75-99)
[2020-04-14 18:17] LABS: Glucose,Whole Blood 135 mg/dL (75-99)
[2020-04-14] MEDS: TAMSULOSIN 0.4 MG CAP.ER.24H PO SCH (18:26)
[2020-04-14 19:12] LABS: Glucose,Whole Blood 137 mg/dL (75-99)
[2020-04-14 20:00] LABS: Glucose,Whole Blood 131 mg/dL (75-99)
[2020-04-14] MEDS: SENNOSIDES-DOCUSATE SODIUM 1 EACH TAB PO SCH (20:34)
[2020-04-14 20:46] LABS: Glucose,Whole Blood 137 mg/dL (75-99)
[2020-04-14 21:56] LABS: Glucose,Whole Blood 121 mg/dL (75-99)
[2020-04-15 00:08] LABS: Glucose,Whole Blood 125 mg/dL (75-99)
[2020-04-15] MEDS: NOREPINEPHRINE 4 MG in SODIUM CHLORIDE 0.9% 250 ML IV SCH (00:27)
[2020-04-15] MEDS: HEPARIN SODIUM,PORCINE 5,000 UNIT/ML 1 ML VIAL SQ SCH ×3 (00:29→16:35)
[2020-04-15 02:22] LABS: Glucose,Whole Blood 117 mg/dL (75-99)
[2020-04-15] MEDS: KETOROLAC 30 MG/ML 1 ML VIAL IVP SCH ×4 (04:22→20:03)
[2020-04-15 04:28] LABS: Glucose,Whole Blood 120 mg/dL (75-99)
[2020-04-15 04:46] LABS: Anisocytosis Moderate; HCT 21.8 % (39.0-53.0); Hypochromasia Slight; MCH 33.3 pg (25.0-35.0); MCHC 31.5 g/dL (31.0-37.0); MCV 105.8 fL (80.0-100.0); Macrocytosis Marked; Mean Platelet Volume 10.1; Platelet Count 209 k/uL (150-450); RBC 2.07 m/uL (4.30-5.90); RDW 20.9 % (11.5-15.5); WBC 12.6 k/uL (3.8-10.6)
[2020-04-15 04:51] LABS: HGB 6.9 gm/dL (13.0-17.5)
[2020-04-15 04:55] LABS: ALT 15 U/L (4-49); AST 38 U/L (17-59); African American GFR (CKD) >90 (>60 ml/min/1.73 sqM); Albumin 2.8 g/dL (3.5-5.0); Alkaline Phosphatase 35 U/L (38-126); Anion Gap 4 mmol/L; Blood Urea Nitrogen 33 mg/dL (9-20); Calcium 7.9 mg/dL (8.4-10.2); Carbon Dioxide 23 mmol/L (22-30); Chloride 108 mmol/L (98-107); Glucose 112 mg/dL (74-99); Non-African American GFR(CKD) 79 (>60 ml/min/1.73 sqM); Potassium 4.9 mmol/L (3.5-5.1); Sodium 135 mmol/L (137-145); Total Protein 4.4 g/dL (6.3-8.2)
[2020-04-15 05:08] LABS: Band Neutrophils % 16 %; Lymphocytes # (M) 0.88 k/uL (1.0-4.8); Monocytes # (M) 0.76 k/uL (0-1.0); Neutrophils % (M) 71 %; Nucleated Red Blood Cells 0 /100 WBC (0-0); Total Cells Counted 200
[2020-04-15 05:09] LABS: Anisocytosis (M) Present; Basophilic Stippling Present; Polychromasia Present; Target Cells Present
[2020-04-15 05:10] LABS: Toxic Granulation Present
--- NOTE | 2020-04-15 06:35 | P.PN ---
Subjective Progress Note Date: 04/15/20 Principal diagnosis: Status post CABG This is a pleasant 79-year-old gentleman with coronary artery disease as well as diabetes and hypertension and dyslipidemia was admitted to the hospital yesterday and underwent elective CABG 4. The patient underwent KEANE to LAD, radial artery to OM, SVG to diagonal, and SVG to RCA. This is his post operation day #2. The patient was seen today 2019. Overall and clinically he is doing better. The pressure is marginal. The hemoglobin is 6.9. I would advise given a phone unit of packed RBC to improve the hemoglobin and also to improve the blood pressure. Otherwise he is on maximize medical treatment including dual antiplatelet therapy along with statin along with metoprolol. He has been maintaining normal sinus mechanism Objective - Vital Signs Vital signs: Vital Signs Temp 97.9 F 04/15/20 04:00 Pulse 92 04/15/20 06:00 Resp 13 04/15/20 06:00 BP 115/69 04/14/20 20:00 Pulse Ox 95 04/15/20 06:00 Intake & Output 04/14/20 04/14/20 04/15/20 06:59 18:59 06:59 Intake Total 3238.034 1032.945 685.572 Output Total 1290 800 710 Balance 1948.034 232.945 -24.428 Weight 87.5 kg 87.5 kg 88.1 kg Intake: IV 2557.0 1012.5 669 ACETAMINOPHEN IV (For NPO 100 ) 1,000 mg In Empty Bag 1 bag @ 400 mls/hr IVPB Q6HR [facility] Rx#:[id number] CO/CI 380 60 Nitroglycerin-D5w Pmx 50 18.0 1.5 mg In Dextrose/Water 1 250ml.bag @ 5 MCG/MIN 1.5 mls/hr IV .Q24H [facility] Rx#: [id number] PRBC's 310 Pressure Bags 99 51 69 Sodium Chloride 0.9% 1, 600 600 600 000 ml @ 50 mls/hr IV . Q20H [facility] Rx#:[id number] albumin 5% 1000 250 ceFAZolin 2 gm In Sodium 50 50 Chloride 0.9% 50 ml @ 100 mls/hr IVPB Q8HR [facility] Rx# :[id number] Intake, IV Titration 21.034 20.445 16.572 Amount Insulin Regular 100 unit 21.034 20.445 16.572 In Sodium Chloride 0.9% 100 ml @ Per Protocol IV .Q0M PENDING SALE TO [facility] Rx#:[id number] Tube Feeding 150 Blood Product 310 Rc As-1 Unit 310 [id number] Other 200 Output: Chest Tube Drainage 760 250 330 Bilateral Mediastinal 430 190 150 Left 330 60 180 Drainage 35 15 Left Arm 5 10 Left Calf 30 5 Urine 495 535 380 Other: Voiding Method Indwelling Catheter Indwelling Catheter Indwelling Catheter ABP, PAP, CO, CI - Last Documented Arterial Blood Pressure 105/41 Pulmonary Artery Pressure 28/7 Cardiac Output 6.1 Cardiac Index 3.1 - Constitutional General appearance: Present: no acute distress - Respiratory Respiratory: bilateral: diminished - Cardiovascular Rhythm: regular - Labs CBC & Chem 7: 04/15/20 04:31 04/15/20 04:31 Labs: Abnormal Lab Results - Last 24 Hours (Table) 04/10/20 04/14/20 04/14/20 Range/Units 10:06 06:26 06:55 WBC 11.7 H (3.8-10.6) k/uL RBC 2.35 L (4.30-5.90) m/uL Hgb 7.8 L (13.0-17.5) gm/dL Hct 24.3 L (39.0-53.0) % MCV 103.4 H (80.0-100.0) fL RDW 20.4 H (11.5-15.5) % Neutrophils # (Manual) (1.3-7.7) k/uL Lymphocytes # (Manual) (1.0-4.8) k/uL Macrocytosis Marked A Sodium (137-145) mmol/L Chloride (98-107) mmol/L BUN (9-20) mg/dL Glucose (74-99) mg/dL POC Glucose (mg/dL) 130 H (75-99) mg/dL Calcium (8.4-10.2) mg/dL Alkaline Phosphatase (38-126) U/L Total Protein (6.3-8.2) g/dL Albumin (3.5-5.0) g/dL Crossmatch See Detail 04/14/20 04/14/20 04/14/20 Range/Units 06:56 08:11 09:05 WBC (3.8-10.6) k/uL RBC (4.30-5.90) m/uL Hgb (13.0-17.5) gm/dL Hct (39.0-53.0) % MCV (80.0-100.0) fL RDW (11.5-15.5) % Neutrophils # (Manual) (1.3-7.7) k/uL Lymphocytes # (Manual) (1.0-4.8) k/uL Macrocytosis Sodium (137-145) mmol/L Chloride (98-107) mmol/L BUN (9-20) mg/dL Glucose (74-99) mg/dL POC Glucose (mg/dL) 130 H 110 H 110 H (75-99) mg/dL Calcium (8.4-10.2) mg/dL Alkaline Phosphatase (38-126) U/L Total Protein (6.3-8.2) g/dL Albumin (3.5-5.0) g/dL Crossmatch 04/14/20 04/14/20 04/14/20 Range/Units 10:07 10:51 12:19 WBC (3.8-10.6) k/uL RBC (4.30-5.90) m/uL Hgb (13.0-17.5) gm/dL Hct (39.0-53.0) % MCV (80.0-100.0) fL RDW (11.5-15.5) % Neutrophils # (Manual) (1.3-7.7) k/uL Lymphocytes # (Manual) (1.0-4.8) k/uL Macrocytosis Sodium (137-145) mmol/L Chloride (98-107) mmol/L BUN (9-20) mg/dL Glucose (74-99) mg/dL POC Glucose (mg/dL) 122 H 127 H 166 H (75-99) mg/dL Calcium (8.4-10.2) mg/dL Alkaline Phosphatase (38-126) U/L Total Protein (6.3-8.2) g/dL Albumin (3.5-5.0) g/dL Crossmatch 04/14/20 04/14/20 04/14/20 Range/Units 13:02 13:56 15:13 WBC (3.8-10.6) k/uL RBC (4.30-5.90) m/uL Hgb (13.0-17.5) gm/dL Hct (39.0-53.0) % MCV (80.0-100.0) fL RDW (11.5-15.5) % Neutrophils # (Manual) (1.3-7.7) k/uL Lymphocytes # (Manual) (1.0-4.8) k/uL Macrocytosis Sodium (137-145) mmol/L Chloride (98-107) mmol/L BUN (9-20) mg/dL Glucose (74-99) mg/dL POC Glucose (mg/dL) 167 H 138 H 110 H (75-99) mg/dL Calcium (8.4-10.2) mg/dL Alkaline Phosphatase (38-126) U/L Total Protein (6.3-8.2) g/dL Albumin (3.5-5.0) g/dL Crossmatch 04/14/20 04/14/20 04/14/20 Range/Units 15:59 17:12 18:16 WBC (3.8-10.6) k/uL RBC (4.30-5.90) m/uL Hgb (13.0-17.5) gm/dL Hct (39.0-53.0) % MCV (80.0-100.0) fL RDW (11.5-15.5) % Neutrophils # (Manual) (1.3-7.7) k/uL Lymphocytes # (Manual) (1.0-4.8) k/uL Macrocytosis Sodium (137-145) mmol/L Chloride (98-107) mmol/L BUN (9-20) mg/dL Glucose (74-99) mg/dL POC Glucose (mg/dL) 116 H 125 H 135 H (75-99) mg/dL Calcium (8.4-10.2) mg/dL Alkaline Phosphatase (38-126) U/L Total Protein (6.3-8.2) g/dL Albumin (3.5-5.0) g/dL Crossmatch 04/14/20 04/14/20 04/14/20 Range/Units 19:10 19:59 20:45 WBC (3.8-10.6) k/uL RBC (4.30-5.90) m/uL Hgb (13.0-17.5) gm/dL Hct (39.0-53.0) % MCV (80.0-100.0) fL RDW (11.5-15.5) % Neutrophils # (Manual) (1.3-7.7) k/uL Lymphocytes # (Manual) (1.0-4.8) k/uL Macrocytosis Sodium (137-145) mmol/L Chloride (98-107) mmol/L BUN (9-20) mg/dL Glucose (74-99) mg/dL POC Glucose (mg/dL) 137 H 131 H 137 H (75-99) mg/dL Calcium (8.4-10.2) mg/dL Alkaline Phosphatase (38-126) U/L Total Protein (6.3-8.2) g/dL Albumin (3.5-5.0) g/dL Crossmatch 04/14/20 04/15/20 04/15/20 Range/Units 21:54 00:06 02:20 WBC (3.8-10.6) k/uL RBC (4.30-5.90) m/uL Hgb (13.0-17.5) gm/dL Hct (39.0-53.0) % MCV (80.0-100.0) fL RDW (11.5-15.5) % Neutrophils # (Manual) (1.3-7.7) k/uL Lymphocytes # (Manual) (1.0-4.8) k/uL Macrocytosis Sodium (137-145) mmol/L Chloride (98-107) mmol/L BUN (9-20) mg/dL Glucose (74-99) mg/dL POC Glucose (mg/dL) 121 H 125 H 117 H (75-99) mg/dL Calcium (8.4-10.2) mg/dL Alkaline Phosphatase (38-126) U/L Total Protein (6.3-8.2) g/dL Albumin (3.5-5.0) g/dL Crossmatch 04/15/20 04/15/20 04/15/20 Range/Units 04:27 04:31 04:31 WBC 12.6 H (3.8-10.6) k/uL RBC 2.07 L (4.30-5.90) m/uL Hgb 6.9 L* (13.0-17.5) gm/dL Hct 21.8 L (39.0-53.0) % MCV 105.8 H (80.0-100.0) fL RDW 20.9 H (11.5-15.5) % Neutrophils # (Manual) 10.90 H (1.3-7.7) k/uL Lymphocytes # (Manual) 0.88 L (1.0-4.8) k/uL Macrocytosis Marked A Sodium 135 L (137-145) mmol/L Chloride 108 H (98-107) mmol/L BUN 33 H (9-20) mg/dL Glucose 112 H (74-99) mg/dL POC Glucose (mg/dL) 120 H (75-99) mg/dL Calcium 7.9 L (8.4-10.2) mg/dL Alkaline Phosphatase 35 L (38-126) U/L Total Protein 4.4 L (6.3-8.2) g/dL Albumin 2.8 L (3.5-5.0) g/dL Crossmatch Assessment and Plan Assessment: Assessment #1 severe triple-vessel CAD #2 status post CABG 4 as described above #3 diabetes #4 hypertension #5 dyslipidemia Plan #1 I would advise give the patient one unit of packed RBC #2 continue the current medical regimen #3 follow-up with the patient
[2020-04-15 07:02] LABS: Glucose,Whole Blood 122 mg/dL (75-99)
[2020-04-15] MEDS: ASCORBIC ACID 500 MG TAB PO SCH ×2 (07:10→16:35)
[2020-04-15] MEDS: PANTOPRAZOLE 40 MG TABLET PO SCH (07:10)
[2020-04-15] MEDS: FERROUS SULFATE 325 MG TAB PO SCH ×2 (07:10→16:35)
[2020-04-15] MEDS: SODIUM CHLORIDE 0.9% 1,000 ML IV SCH (07:11)
[2020-04-15] MEDS: IPRATROPIUM-ALBUTEROL 3 ML NEB INHALATION SCH ×4 (07:27→19:25)
--- NOTE | 2020-04-15 07:46 | XR ---
EXAMINATION TYPE: XR chest 1V portable DATE OF EXAM: 04/15/2020 COMPARISON: 04/14/2020 HISTORY: Cough TECHNIQUE: Single frontal view of the chest is obtained. FINDINGS: Hathaway-Deonna catheter is been removed and there is bilateral areas of consolidation and small effusion. No sizable pneumothorax. Trace amount of subcutaneous emphysema on the left. Catheter over lying the left. Abdominal region. Limited inspiration. Arthropathy of the shoulders. Postsurgical ella nges seen.. IMPRESSION: 1. Interval removal of Hathaway-Deonna catheter with no sizable pneumothorax. 2. Persistent bilateral infiltrate and small effusion could been the basis of postoperative atelectas is correlate clinically to exclude pneumonia.
[2020-04-15 08:30] LABS: Glucose,Whole Blood 138 mg/dL (75-99)
[2020-04-15] MEDS ORDERED: FUROSEMIDE 10 MG/ML 2 ML VIAL IV ONE (09:39)
[2020-04-15 09:54] LABS: Glucose,Whole Blood 129 mg/dL (75-99)
[2020-04-15] MEDS: METOPROLOL TARTRATE 12.5 MG TAB PO SCH ×2 (09:56→20:04)
[2020-04-15] MEDS: ATORVASTATIN 40 MG TAB PO SCH (09:56)
[2020-04-15] MEDS: MULTIVITAMINS, THERA 1 EACH TAB PO SCH (09:57)
[2020-04-15] MEDS: CLOPIDOGREL 75 MG TAB PO SCH (09:57)
[2020-04-15] MEDS: ASPIRIN 325 MG TAB PO SCH (09:57)
[2020-04-15] MEDS: MUPIROCIN 2% OINT 22 GM TUBE NASAL SCH ×2 (09:58→20:07)
--- NOTE | 2020-04-15 10:30 | P.PN ---
Subjective Progress Note Date: 04/15/20 Principal diagnosis: Triple-vessel coronary artery disease, mild to moderate left ventricular dysfunction with preoperative EF 40-45%, mild mitral valve regurgitation, moderately dilated ascending aorta around 4.2 cm. Previous history of coronary artery disease status post remote inferior wall myocardial infarction with RCA stent, hypertension, hyperlipidemia, previous tobacco dependence with FEV1 88% of predicted, remote history of pneumonia, BPH, and family history of premature coronary artery disease with mother having CABG at 60 years old. POD #2 quadruple coronary artery bypass grafting using the left internal mammary artery to the left anterior descending artery, left radial artery from the aorta to the obtuse marginal artery, reverse saphenous vein graft from the aorta to the diagonal artery, reverse saphenous vein graft from the aorta to the junction of the RCA to the posterior descending artery. Exclusion of the left atrial appendage using a 35 mm after clip. Endoscopic harvesting of the left radial artery. Endoscopic harvesting of the left greater saphenous vein from the groin to above the ankle level. Intraoperative transesophageal echocardiogram and epi-aortic scanning. Intraoperative graft flow measurements using the [employer] system. Postoperative acute blood loss anemia, expected given cardiopulmonary bypass pump, hemodilution, and patient's continued Plavix up until the day before surgery The patient is currently sitting up in the recliner in the intensive care unit in no acute distress. He does complain of some post surgical type pain which is controlled on current medication regimen and less than yesterday, denies shortness of breath. He did ambulate short distances yesterday. Right internal jugular Cordis, right radial arterial line, mediastinal chest tubes, left pleural chest tubes all present. He remains in normal sinus rhythm, hemodynamically stable on no inotropes or pressors. Hemoglobin was 7.0 yesterday morning, received one unit packed blood cells with improvement to 7.8, hemoglobin this morning 6.9. Objective - Vital Signs Vital signs: Vital Signs Temp 97.9 F 04/15/20 08:00 Pulse 87 04/15/20 10:00 Resp 14 04/15/20 10:00 BP 115/69 04/14/20 20:00 Pulse Ox 98 04/15/20 10:00 Intake & Output 04/14/20 04/15/20 04/15/20 18:59 06:59 18:59 Intake Total 1032.945 685.572 195.742 Output Total 800 710 165 Balance 232.945 -24.428 30.742 Weight 87.5 kg 88.1 kg Intake: IV 1012.5 669 194 CO/CI 60 Nitroglycerin-D5w Pmx 50 1.5 mg In Dextrose/Water 1 250ml.bag @ 5 MCG/MIN 1.5 mls/hr IV .Q24H [facility] Rx#: [id number] Pressure Bags 51 69 24 Sodium Chloride 0.9% 1, 600 600 170 000 ml @ 20 mls/hr IV . Q24H [facility] Rx#:[id number] albumin 5% 250 ceFAZolin 2 gm In Sodium 50 Chloride 0.9% 50 ml @ 100 mls/hr IVPB Q8HR [facility] Rx# :[id number] Intake, IV Titration 20.445 16.572 1.742 Amount Insulin Regular 100 unit 20.445 16.572 1.742 In Sodium Chloride 0.9% 100 ml @ Per Protocol IV .Q0M [facility] Rx#:[id number] Output: Chest Tube Drainage 250 330 20 Bilateral Mediastinal 190 150 10 Left 60 180 10 Drainage 15 Left Arm 10 Left Calf 5 Urine 535 380 145 Other: Voiding Method Indwelling Catheter Indwelling Catheter Indwelling Catheter ABP, PAP, CO, CI - Last Documented Arterial Blood Pressure 110/48 Pulmonary Artery Pressure 28/7 Cardiac Output 6.1 Cardiac Index 3.1 - Constitutional General appearance: Present: cooperative, no acute distress - Respiratory Details: Lungs sounds diminished bilaterally. Respirations even, nonlabored. Currently on 2 L nasal cannula with oxygen saturation 96%. Able to achieve 1000 mL on incentive spirometry. Weak cough. Mediastinal chest tubes present to continuous wall suction, 110 mL serosanguineous drainage overnight, 300 mL since surgery, no air leak present. Left pleural chest tube present continuous wall suction, 140 mL serosanguineous drainage overnight, 350 mL since surgery, no air leak present. - Cardiovascular Details: S1, S2 present. Regular rate and rhythm, sinus rhythm on telemetry. Sternum stable. Atrial epicardial pacemaker wires present, connected to generator, AAI mode with backup rate 50 bpm. Palpable peripheral pulses bilaterally. No edema present. No calf pain or tenderness noted. Right internal jugular Cordis, right radial arterial line present. Heart hugger in place with patient demonstrating appropriate use. SCDs, antiembolism stockings present. - Gastrointestinal Gastrointestinal Comment(s): Abdomen soft, nontender, nondistended. Active bowel sounds present 4 quadrants. Tolerating diet. Negative flatus - Genitourinary Genitourinary Comment(s): Grimm present draining clear, jm urine. Output 20-40 mL/h overnight, 915 milliliters in the last 24 hours - Integumentary Integumentary Comment(s): Skin is warm and dry with evidence of good perfusion. Anterior chest incision well approximated and covered with dry intact dressing. Left lower extremity EVH site well approximated. Left radial artery harvest site well approximated, patient is able to wiggle fingers and media developer appropriately. Good cap refill. - Neurologic Neurologic: Present: CNII-XII intact - Musculoskeletal Musculoskeletal: Present: gait normal, strength equal bilaterally - Psychiatric Psychiatric: Present: A&O x's 3, appropriate affect, intact judgment & insight - Allied health notes Allied health notes reviewed: nursing - Labs CBC & Chem 7: 04/15/20 04:31 04/15/20 04:31 Labs: Abnormal Lab Results - Last 24 Hours (Table) 04/10/20 04/14/20 04/14/20 Range/Units 10:06 10:51 12:19 WBC (3.8-10.6) k/uL RBC (4.30-5.90) m/uL Hgb (13.0-17.5) gm/dL Hct (39.0-53.0) % MCV (80.0-100.0) fL RDW (11.5-15.5) % Neutrophils # (Manual) (1.3-7.7) k/uL Lymphocytes # (Manual) (1.0-4.8) k/uL Macrocytosis Sodium (137-145) mmol/L Chloride (98-107) mmol/L BUN (9-20) mg/dL Glucose (74-99) mg/dL POC Glucose (mg/dL) 127 H 166 H (75-99) mg/dL Calcium (8.4-10.2) mg/dL Alkaline Phosphatase (38-126) U/L Total Protein (6.3-8.2) g/dL Albumin (3.5-5.0) g/dL Crossmatch See Detail 04/14/20 04/14/20 04/14/20 Range/Units 13:02 13:56 15:13 WBC (3.8-10.6) k/uL RBC (4.30-5.90) m/uL Hgb (13.0-17.5) gm/dL Hct (39.0-53.0) % MCV (80.0-100.0) fL RDW (11.5-15.5) % Neutrophils # (Manual) (1.3-7.7) k/uL Lymphocytes # (Manual) (1.0-4.8) k/uL Macrocytosis Sodium (137-145) mmol/L Chloride (98-107) mmol/L BUN (9-20) mg/dL Glucose (74-99) mg/dL POC Glucose (mg/dL) 167 H 138 H 110 H (75-99) mg/dL Calcium (8.4-10.2) mg/dL Alkaline Phosphatase (38-126) U/L Total Protein (6.3-8.2) g/dL Albumin (3.5-5.0) g/dL Crossmatch 04/14/20 04/14/20 04/14/20 Range/Units 15:59 17:12 18:16 WBC (3.8-10.6) k/uL RBC (4.30-5.90) m/uL Hgb (13.0-17.5) gm/dL Hct (39.0-53.0) % MCV (80.0-100.0) fL RDW (11.5-15.5) % Neutrophils # (Manual) (1.3-7.7) k/uL Lymphocytes # (Manual) (1.0-4.8) k/uL Macrocytosis Sodium (137-145) mmol/L Chloride (98-107) mmol/L BUN (9-20) mg/dL Glucose (74-99) mg/dL POC Glucose (mg/dL) 116 H 125 H 135 H (75-99) mg/dL Calcium (8.4-10.2) mg/dL Alkaline Phosphatase (38-126) U/L Total Protein (6.3-8.2) g/dL Albumin (3.5-5.0) g/dL Crossmatch 04/14/20 04/14/20 04/14/20 Range/Units 19:10 19:59 20:45 WBC (3.8-10.6) k/uL RBC (4.30-5.90) m/uL Hgb (13.0-17.5) gm/dL Hct (39.0-53.0) % MCV (80.0-100.0) fL RDW (11.5-15.5) % Neutrophils # (Manual) (1.3-7.7) k/uL Lymphocytes # (Manual) (1.0-4.8) k/uL Macrocytosis Sodium (137-145) mmol/L Chloride (98-107) mmol/L BUN (9-20) mg/dL Glucose (74-99) mg/dL POC Glucose (mg/dL) 137 H 131 H 137 H (75-99) mg/dL Calcium (8.4-10.2) mg/dL Alkaline Phosphatase (38-126) U/L Total Protein (6.3-8.2) g/dL Albumin (3.5-5.0) g/dL Crossmatch 04/14/20 04/15/20 04/15/20 Range/Units 21:54 00:06 02:20 WBC (3.8-10.6) k/uL RBC (4.30-5.90) m/uL Hgb (13.0-17.5) gm/dL Hct (39.0-53.0) % MCV (80.0-100.0) fL RDW (11.5-15.5) % Neutrophils # (Manual) (1.3-7.7) k/uL Lymphocytes # (Manual) (1.0-4.8) k/uL Macrocytosis Sodium (137-145) mmol/L Chloride (98-107) mmol/L BUN (9-20) mg/dL Glucose (74-99) mg/dL POC Glucose (mg/dL) 121 H 125 H 117 H (75-99) mg/dL Calcium (8.4-10.2) mg/dL Alkaline Phosphatase (38-126) U/L Total Protein (6.3-8.2) g/dL Albumin (3.5-5.0) g/dL Crossmatch 04/15/20 04/15/20 04/15/20 Range/Units 04:27 04:31 04:31 WBC 12.6 H (3.8-10.6) k/uL RBC 2.07 L (4.30-5.90) m/uL Hgb 6.9 L* (13.0-17.5) gm/dL Hct 21.8 L (39.0-53.0) % MCV 105.8 H (80.0-100.0) fL RDW 20.9 H (11.5-15.5) % Neutrophils # (Manual) 10.90 H (1.3-7.7) k/uL Lymphocytes # (Manual) 0.88 L (1.0-4.8) k/uL Macrocytosis Marked A Sodium 135 L (137-145) mmol/L Chloride 108 H (98-107) mmol/L BUN 33 H (9-20) mg/dL Glucose 112 H (74-99) mg/dL POC Glucose (mg/dL) 120 H (75-99) mg/dL Calcium 7.9 L (8.4-10.2) mg/dL Alkaline Phosphatase 35 L (38-126) U/L Total Protein 4.4 L (6.3-8.2) g/dL Albumin 2.8 L (3.5-5.0) g/dL Crossmatch 04/15/20 04/15/20 04/15/20 Range/Units 07:00 08:28 09:51 WBC (3.8-10.6) k/uL RBC (4.30-5.90) m/uL Hgb (13.0-17.5) gm/dL Hct (39.0-53.0) % MCV (80.0-100.0) fL RDW (11.5-15.5) % Neutrophils # (Manual) (1.3-7.7) k/uL Lymphocytes # (Manual) (1.0-4.8) k/uL Macrocytosis Sodium (137-145) mmol/L Chloride (98-107) mmol/L BUN (9-20) mg/dL Glucose (74-99) mg/dL POC Glucose (mg/dL) 122 H 138 H 129 H (75-99) mg/dL Calcium (8.4-10.2) mg/dL Alkaline Phosphatase (38-126) U/L Total Protein (6.3-8.2) g/dL Albumin (3.5-5.0) g/dL Crossmatch - Imaging and Cardiology Chest x-ray: report reviewed, image reviewed Assessment and Plan Assessment: 1. Triple-vessel coronary artery disease, status post four-vessel CABG 2. Mild to moderate left ventricular dysfunction, chronic systolic heart failure, preoperative EF 30-45% 3. Mild mitral valve regurgitation 4. Moderately dilated ascending aorta 4.2 cm 5. History of coronary artery disease status post remote inferior wall NV with RCA stent 6. History of hypertension, currently hypotensive 7. Hyperlipidemia 8. Previous tobacco dependence with FEV1 88% of predicted 9. Remote history of pneumonia 10. BPH 11. Family history of premature coronary artery disease 12. Postoperative acute blood loss anemia, status post blood transfusion Plan: 1. Continue aspirin, statin, Plavix, beta branden. Will increase beta branden as tolerated. 2. Will start low-dose calcium channel branden for radial artery spasm. Please do not discontinue without discussing with cardiac surgery 3. Wean O2 as tolerated. Bronchodilators per pulmonology Encourage incentive spirometry 10 times every hour while awake 4. Increase activity, ambulate as tolerated. PT/OT/cardiac rehab following 5. Will monitor daily labs and x-rays. Electrolyte replacement per protocol. Will transfuse 1 unit packed red blood cells today. Will follow transfusion with 20 mg IV lasix 6. Pain control with current medication regimen 7. Insulin management per primary care service. Hemoglobin A1c preoperatively 5.2% 8. Will discontinue mediastinal chest tube today, keep pleural chest tube for another 24 hours 9. Discontinue Rgimm catheter after diuresis, may bladder scan and straight cath for greater than 300 mL residual 10. More recommendations to follow based on patient's progress Time with Patient: Greater than 30
[2020-04-15 12:14] LABS: Glucose,Whole Blood 104 mg/dL (75-99)
[2020-04-15] MEDS: INSULIN ASPART (NovoLOG) 100 UNIT/ML VIAL SQ SCH ×3 (12:14→20:04)
[2020-04-15] MEDS: HYDROcodone/APAP 5-325MG 1 EACH TAB PO PRN (12:20)
--- NOTE | 2020-04-15 13:10 | P.PN ---
Subjective Progress Note Date: 04/15/20 04/15/2020, the patient is postop day #2. Doing well per no specific complaints. Currently on oxygen at 2 L per minute nasal cannula. Hemodynamically stable. Chest tubes are still in place and output is being monitored. Hemoglobin was 7.8 yesterday and this morning hemoglobin is up to 6.9. Nevertheless, there is no evidence of any acute bleeding. Platelet count is 209. He is afebrile. He is using incentive spirometer. He is pulling approximately 2000 and slightly above that as the patient is feeling better and his pain is under better control for now. His cardiac rhythm is sinus. He is hemodynamically stable. Pisek-Deonna catheter is been removed. Chest x-ray shows a kinked left-sided chest tube. Nevertheless is no evidence of any pneumothorax. No evidence of any significant pleural effusion. Is essentially consistent with postoperative changes. No altered mentation. Moving all 4 extremities without any limitation. Objective - Vital Signs Vital signs: Vital Signs Temp 98.1 F 04/15/20 12:00 Pulse 96 04/15/20 12:00 Resp 16 04/15/20 12:00 BP 110/46 04/15/20 12:00 Pulse Ox 99 04/15/20 12:00 Intake & Output 04/14/20 04/15/20 04/15/20 18:59 06:59 18:59 Intake Total 1032.945 685.572 247.742 Output Total 800 710 280 Balance 232.945 -24.428 -32.258 Weight 87.5 kg 88.1 kg Intake: IV 1012.5 669 246 CO/CI 60 Nitroglycerin-D5w Pmx 50 1.5 mg In Dextrose/Water 1 250ml.bag @ 5 MCG/MIN 1.5 mls/hr IV .Q24H [facility] Rx#: [id number] Pressure Bags 51 69 36 Sodium Chloride 0.9% 1, 600 600 210 000 ml @ 20 mls/hr IV . Q24H [facility] Rx#:[id number] albumin 5% 250 ceFAZolin 2 gm In Sodium 50 Chloride 0.9% 50 ml @ 100 mls/hr IVPB Q8HR [facility] Rx# :[id number] Intake, IV Titration 20.445 16.572 1.742 Amount Insulin Regular 100 unit 20.445 16.572 1.742 In Sodium Chloride 0.9% 100 ml @ Per Protocol IV .Q0M [facility] Rx#:[id number] Blood Product 0 Rc As-1 Unit 0 [id number] Output: Chest Tube Drainage 250 330 70 Bilateral Mediastinal 190 150 20 Left 60 180 50 Drainage 15 Left Arm 10 Left Calf 5 Urine 535 380 210 Other: Voiding Method Indwelling Catheter Indwelling Catheter Indwelling Catheter ABP, PAP, CO, CI - Last Documented Arterial Blood Pressure 111/45 Pulmonary Artery Pressure 28/7 Cardiac Output 6.1 Cardiac Index 3.1 - Exam - Constitutional General appearance: Present: cooperative, no acute distress - Respiratory Details: Lungs sounds diminished bilaterally. Respirations even, nonlabored. Currently on 2 L nasal cannula with oxygen saturation 96%. Able to achieve 1000 mL on incentive spirometry. Weak cough. Mediastinal chest tubes present to continuous wall suction, 110 mL serosanguineous drainage overnight, 300 mL since surgery, no air leak present. Left pleural chest tube present continuous wall suction, 140 mL serosanguineous drainage overnight, 350 mL since surgery, no air leak present. - Cardiovascular Details: S1, S2 present. Regular rate and rhythm, sinus rhythm on telemetry. Sternum stable. Atrial epicardial pacemaker wires present, connected to generator, AAI mode with backup rate 50 bpm. Palpable peripheral pulses bilaterally. No edema present. No calf pain or tenderness noted. Right internal jugular Cordis, right radial arterial line present. Heart hugger in place with patient demonstrating appropriate use. SCDs, antiembolism stockings present. - Gastrointestinal Gastrointestinal Comment(s): Abdomen soft, nontender, nondistended. Active bowel sounds present 4 quadrants. Tolerating diet. Negative flatus - Genitourinary Genitourinary Comment(s): Grimm present draining clear, jm urine. Output 20-40 mL/h overnight, 915 milliliters in the last 24 hours - Integumentary Integumentary Comment(s): Skin is warm and dry with evidence of good perfusion. Anterior chest incision well approximated and covered with dry intact dressing. Left lower extremity EVH site well approximated. 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 Good cap refill. - Neurologic Neurologic: Present: CNII-XII intact - Musculoskeletal Musculoskeletal: Present: gait normal, strength equal bilaterally - Psychiatric Psychiatric: Present: A&O x's 3, appropriate affect, intact judgment & insight - Labs CBC & Chem 7: 04/15/20 04:31 04/15/20 04:31 Labs: Abnormal Lab Results - Last 24 Hours (Table) 04/10/20 04/14/20 04/14/20 Range/Units 10:06 13:56 15:13 WBC (3.8-10.6) k/uL RBC (4.30-5.90) m/uL Hgb (13.0-17.5) gm/dL Hct (39.0-53.0) % MCV (80.0-100.0) fL RDW (11.5-15.5) % Neutrophils # (Manual) (1.3-7.7) k/uL Lymphocytes # (Manual) (1.0-4.8) k/uL Macrocytosis Sodium (137-145) mmol/L Chloride (98-107) mmol/L BUN (9-20) mg/dL Glucose (74-99) mg/dL POC Glucose (mg/dL) 138 H 110 H (75-99) mg/dL Calcium (8.4-10.2) mg/dL Alkaline Phosphatase (38-126) U/L Total Protein (6.3-8.2) g/dL Albumin (3.5-5.0) g/dL Crossmatch See Detail 04/14/20 04/14/20 04/14/20 Range/Units 15:59 17:12 18:16 WBC (3.8-10.6) k/uL RBC (4.30-5.90) m/uL Hgb (13.0-17.5) gm/dL Hct (39.0-53.0) % MCV (80.0-100.0) fL RDW (11.5-15.5) % Neutrophils # (Manual) (1.3-7.7) k/uL Lymphocytes # (Manual) (1.0-4.8) k/uL Macrocytosis Sodium (137-145) mmol/L Chloride (98-107) mmol/L BUN (9-20) mg/dL Glucose (74-99) mg/dL POC Glucose (mg/dL) 116 H 125 H 135 H (75-99) mg/dL Calcium (8.4-10.2) mg/dL Alkaline Phosphatase (38-126) U/L Total Protein (6.3-8.2) g/dL Albumin (3.5-5.0) g/dL Crossmatch 04/14/20 04/14/20 04/14/20 Range/Units 19:10 19:59 20:45 WBC (3.8-10.6) k/uL RBC (4.30-5.90) m/uL Hgb (13.0-17.5) gm/dL Hct (39.0-53.0) % MCV (80.0-100.0) fL RDW (11.5-15.5) % Neutrophils # (Manual) (1.3-7.7) k/uL Lymphocytes # (Manual) (1.0-4.8) k/uL Macrocytosis Sodium (137-145) mmol/L Chloride (98-107) mmol/L BUN (9-20) mg/dL Glucose (74-99) mg/dL POC Glucose (mg/dL) 137 H 131 H 137 H (75-99) mg/dL Calcium (8.4-10.2) mg/dL Alkaline Phosphatase (38-126) U/L Total Protein (6.3-8.2) g/dL Albumin (3.5-5.0) g/dL Crossmatch 04/14/20 04/15/20 04/15/20 Range/Units 21:54 00:06 02:20 WBC (3.8-10.6) k/uL RBC (4.30-5.90) m/uL Hgb (13.0-17.5) gm/dL Hct (39.0-53.0) % MCV (80.0-100.0) fL RDW (11.5-15.5) % Neutrophils # (Manual) (1.3-7.7) k/uL Lymphocytes # (Manual) (1.0-4.8) k/uL Macrocytosis Sodium (137-145) mmol/L Chloride (98-107) mmol/L BUN (9-20) mg/dL Glucose (74-99) mg/dL POC Glucose (mg/dL) 121 H 125 H 117 H (75-99) mg/dL Calcium (8.4-10.2) mg/dL Alkaline Phosphatase (38-126) U/L Total Protein (6.3-8.2) g/dL Albumin (3.5-5.0) g/dL Crossmatch 04/15/20 04/15/20 04/15/20 Range/Units 04:27 04:31 04:31 WBC 12.6 H (3.8-10.6) k/uL RBC 2.07 L (4.30-5.90) m/uL Hgb 6.9 L* (13.0-17.5) gm/dL Hct 21.8 L (39.0-53.0) % MCV 105.8 H (80.0-100.0) fL RDW 20.9 H (11.5-15.5) % Neutrophils # (Manual) 10.90 H (1.3-7.7) k/uL Lymphocytes # (Manual) 0.88 L (1.0-4.8) k/uL Macrocytosis Marked A Sodium 135 L (137-145) mmol/L Chloride 108 H (98-107) mmol/L BUN 33 H (9-20) mg/dL Glucose 112 H (74-99) mg/dL POC Glucose (mg/dL) 120 H (75-99) mg/dL Calcium 7.9 L (8.4-10.2) mg/dL Alkaline Phosphatase 35 L (38-126) U/L Total Protein 4.4 L (6.3-8.2) g/dL Albumin 2.8 L (3.5-5.0) g/dL Crossmatch 04/15/20 04/15/20 04/15/20 Range/Units 07:00 08:28 09:51 WBC (3.8-10.6) k/uL RBC (4.30-5.90) m/uL Hgb (13.0-17.5) gm/dL Hct (39.0-53.0) % MCV (80.0-100.0) fL RDW (11.5-15.5) % Neutrophils # (Manual) (1.3-7.7) k/uL Lymphocytes # (Manual) (1.0-4.8) k/uL Macrocytosis Sodium (137-145) mmol/L Chloride (98-107) mmol/L BUN (9-20) mg/dL Glucose (74-99) mg/dL POC Glucose (mg/dL) 122 H 138 H 129 H (75-99) mg/dL Calcium (8.4-10.2) mg/dL Alkaline Phosphatase (38-126) U/L Total Protein (6.3-8.2) g/dL Albumin (3.5-5.0) g/dL Crossmatch 04/15/20 Range/Units 12:13 WBC (3.8-10.6) k/uL RBC (4.30-5.90) m/uL Hgb (13.0-17.5) gm/dL Hct (39.0-53.0) % MCV (80.0-100.0) fL RDW (11.5-15.5) % Neutrophils # (Manual) (1.3-7.7) k/uL Lymphocytes # (Manual) (1.0-4.8) k/uL Macrocytosis Sodium (137-145) mmol/L Chloride (98-107) mmol/L BUN (9-20) mg/dL Glucose (74-99) mg/dL POC Glucose (mg/dL) 104 H (75-99) mg/dL Calcium (8.4-10.2) mg/dL Alkaline Phosphatase (38-126) U/L Total Protein (6.3-8.2) g/dL Albumin (3.5-5.0) g/dL Crossmatch Assessment and Plan Plan: #1. Significant triple vessel coronary artery disease, status post four-vessel coronary artery bypass grafting with KEANE to the LAD, left radial arterial graft to the OM, SVG to the PDA, SVG to the diagonal, with left radial artery harvest, left lower extremity endoscopic vein harvest, and exclusion of the left atrial appendage with 35mm Atriclip, postoperative day #2 and the patient is doing well and then the patient was extubated without any major difficulties. #2. Post thoracotomy and the patient has chest tubes in place. Hemodynamically stable. Extubated blood any major difficulties currently on 2 L of oxygen by nasal cannula. The patient is doing well and the patient's still using incentive spirometer. No signs of any respiratory distress for now. Output from the chest tube has been noted. #3. Coronary artery disease with previous history of PCI and stenting of the RCA #4. 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 Hypertension #7. Hyperlipidemia #8. Osteoarthritis #9 postoperative anemia, expected outcome of surgery, hemoglobin is at 6.9. #10, dilated ascending aorta measuring 4.2 cm in size. Plan Monitor the hemoglobin. No plans to transfuse the patient at this point in emy e. Lasix 20 mg IV push Monitor the output from the chest tube Continue using incentive spirometer. Keep the chest tubes in place. Advance diet and keep insulin drip for another 24 hours. Routine postoperative care. Chest x-ray was reviewed and is adequate expansion of both lungs.
[2020-04-15] MEDS: amLODIPine 2.5 MG TAB PO SCH (15:06)
--- NOTE | 2020-04-15 16:22 | P.PN ---
Subjective Progress Note Date: 04/15/20 79-year-old male one of my office patient with long-standing history of CAD post PR with history of PCI and stent placement of the right coronary artery disease over 10 years ago who is known to have history of hypertension hyperlipidemia and previous history of tobacco dependency patient has been doing natural management for many years has become slightly bit symptomatic lately with significant shortness of breath and decrease endurance when attempted to walk and ambulate was seen Dr. FRANK patel and end up going for stress test showed moderate area of infarct ischemic change patient ended up going for heart cath on 03/09/2020 finding was consistent with 80 percentile blockage of the LAD, 70% blockage in the mid LAD, 90% blockage of the circumflex and 95% blockage of the RCA. Patient was seen cardiothoracic surgeon and plan for bypass surgery with surgery scheduled for today ended up having 4 vessel bypass surgery and was sent to the ICU on mechanical ventilation. Patient otherwise hemodynamically stable has 2 mediastinal and left pleural tube in place has been draining some. 04/14: Patient is seen today in the intensive care unit. Patient is in the recliner and appears to be comfortable. He was successfully extubated last evening. He is status post one unit of packed RBCs this morning. Patient has been afebrile, heart rate 84, blood pressure 113/43, pulse ox 99% on 2 L nasal cannula. Blood sugars are running between 110 and 130. He has been on insulin drip at 2 units currently on hold for blood sugar 110. Repeat blood work revealed WBC 11.7, hemoglobin 7.8. Sodium 138, potassium 5.0, chloride 109, CO2 25, BUN 23 and creatinine 0.79. cardiac monitor is a sinus rhythm. 04/15: Patient remains in ICU, he is comfortable without any shortness of breath, he has minimal amount of edema however he mentions this is much better, patient has left-sided rib pain, still has one Cordis left main the left side. Patient is receiving 1 unit of packed red blood cells earlier today, total of 2 units post surgery and 1 unit pre-surgery hemoglobin at 6.9, WBC count of 12.6, potassium 4.9 creatinine 0.93. Blood sugars ranging 104-138 albumin is low at 2.8 , on oral iron 325 mg twice a day, Plavix aspirin Lopressor and insulin scale. Daughter is at bedside, questions were answered, no lightheadedness or dizziness identified today, Grimm catheter is in place, attempt to discontinue it this evening Review of systems CONSTITUTIONAL: Denies fever, denies chills. EYES: No icterus sclerae, no conjunctivitis. EARS, NOSE, MOUTH, THROAT, and FACE: No sore throat, lymphadenopathy, carotid bruits or deformity. RESPIRATORY: On mechanical ventilation. And 3 chest tubes in. CARDIOVASCULAR: 4 vessel CABG with incision looks fine. Postop surgical pain. GASTROINTESTINAL: No Abd pain, Nausea or vomiting, no Diarrhea or constipation, No GI Bleed, no distention or masses. GENITOURINARY: Negative for Hematuria or UTI, no kidney stones. INTEGUMENT/BREAST: Negative for any muscular injury with mild osteoarthritis.. HEMATOLOGIC/LYMPHATIC: Negative for bleed or purpura. MUSCULOSKELTAL: Negative for Myalgia or arthralgia. NEURLOGICAL: Sedated on mechanical ventilation is still awaking for pain stimuli. BEHAVIORAL/PSYCH: Negative. ENDOCRINE: Negative. Blood sugars controlled Objective - Vital Signs Vital signs: Vital Signs Temp 98.2 F 04/15/20 13:42 Pulse 92 04/15/20 14:00 Resp 17 04/15/20 14:00 BP 101/46 04/15/20 13:42 Pulse Ox 99 04/15/20 14:00 Intake & Output 04/14/20 04/15/20 04/15/20 18:59 06:59 18:59 Intake Total 1032.945 685.572 609.742 Output Total 800 710 365 Balance 232.945 -24.428 244.742 Weight 87.5 kg 88.1 kg Intake: IV 1012.5 669 298 CO/CI 60 Nitroglycerin-D5w Pmx 50 1.5 mg In Dextrose/Water 1 250ml.bag @ 5 MCG/MIN 1.5 mls/hr IV .Q24H [facility] Rx#: [id number] Pressure Bags 51 69 48 Sodium Chloride 0.9% 1, 600 600 250 000 ml @ 20 mls/hr IV . Q24H [facility] Rx#:[id number] albumin 5% 250 ceFAZolin 2 gm In Sodium 50 Chloride 0.9% 50 ml @ 100 mls/hr IVPB Q8HR [facility] Rx# :[id number] Intake, IV Titration 20.445 16.572 1.742 Amount Insulin Regular 100 unit 20.445 16.572 1.742 In Sodium Chloride 0.9% 100 ml @ Per Protocol IV .Q0M [facility] Rx#:[id number] Blood Product 310 Rc As-1 Unit 310 [id number] Output: Chest Tube Drainage 250 330 90 Bilateral Mediastinal 190 150 20 Left 60 180 70 Drainage 15 Left Arm 10 Left Calf 5 Urine 535 380 275 Other: Voiding Method Indwelling Catheter Indwelling Catheter Indwelling Catheter ABP, PAP, CO, CI - Last Documented Arterial Blood Pressure 103/41 Pulmonary Artery Pressure 28/7 Cardiac Output 6.1 Cardiac Index 3.1 - Constitutional General appearance: Present: average body habitus, cooperative, no acute distress - EENT Eyes: Present: anicteric sclerae, EOMI, dentition normal, normal appearance ENT: Present: NA/AT, normal oropharynx - Neck Neck: Present: normal ROM - Respiratory Respiratory: bilateral: CTA, negative: diminished, dullness, rales - Cardiovascular Rhythm: regular Heart sounds: normal: S1, S2 Abnormal Heart Sounds: Absent: systolic murmur, diastolic murmur, rub, S3 Gallop, S4 Gallop, click, other - Gastrointestinal General gastrointestinal: Present: normal bowel sounds, soft - Integumentary Integumentary: Present: decreased turgor, normal - Neurologic Neurologic: Present: CNII-XII intact - Musculoskeletal Musculoskeletal: Present: gait normal, left sided weakness - Psychiatric Psychiatric: Present: A&O x's 3, appropriate affect - Labs CBC & Chem 7: 04/15/20 04:31 04/15/20 04:31 Labs: Abnormal Lab Results - Last 24 Hours (Table) 04/10/20 04/14/20 04/14/20 Range/Units 10:06 15:13 15:59 WBC (3.8-10.6) k/uL RBC (4.30-5.90) m/uL Hgb (13.0-17.5) gm/dL Hct (39.0-53.0) % MCV (80.0-100.0) fL RDW (11.5-15.5) % Neutrophils # (Manual) (1.3-7.7) k/uL Lymphocytes # (Manual) (1.0-4.8) k/uL Macrocytosis Sodium (137-145) mmol/L Chloride (98-107) mmol/L BUN (9-20) mg/dL Glucose (74-99) mg/dL POC Glucose (mg/dL) 110 H 116 H (75-99) mg/dL Calcium (8.4-10.2) mg/dL Alkaline Phosphatase (38-126) U/L Total Protein (6.3-8.2) g/dL Albumin (3.5-5.0) g/dL Crossmatch See Detail 04/14/20 04/14/20 04/14/20 Range/Units 17:12 18:16 19:10 WBC (3.8-10.6) k/uL RBC (4.30-5.90) m/uL Hgb (13.0-17.5) gm/dL Hct (39.0-53.0) % MCV (80.0-100.0) fL RDW (11.5-15.5) % Neutrophils # (Manual) (1.3-7.7) k/uL Lymphocytes # (Manual) (1.0-4.8) k/uL Macrocytosis Sodium (137-145) mmol/L Chloride (98-107) mmol/L BUN (9-20) mg/dL Glucose (74-99) mg/dL POC Glucose (mg/dL) 125 H 135 H 137 H (75-99) mg/dL Calcium (8.4-10.2) mg/dL Alkaline Phosphatase (38-126) U/L Total Protein (6.3-8.2) g/dL Albumin (3.5-5.0) g/dL Crossmatch 04/14/20 04/14/20 04/14/20 Range/Units 19:59 20:45 21:54 WBC (3.8-10.6) k/uL RBC (4.30-5.90) m/uL Hgb (13.0-17.5) gm/dL Hct (39.0-53.0) % MCV (80.0-100.0) fL RDW (11.5-15.5) % Neutrophils # (Manual) (1.3-7.7) k/uL Lymphocytes # (Manual) (1.0-4.8) k/uL Macrocytosis Sodium (137-145) mmol/L Chloride (98-107) mmol/L BUN (9-20) mg/dL Glucose (74-99) mg/dL POC Glucose (mg/dL) 131 H 137 H 121 H (75-99) mg/dL Calcium (8.4-10.2) mg/dL Alkaline Phosphatase (38-126) U/L Total Protein (6.3-8.2) g/dL Albumin (3.5-5.0) g/dL Crossmatch 04/15/20 04/15/20 04/15/20 Range/Units 00:06 02:20 04:27 WBC (3.8-10.6) k/uL RBC (4.30-5.90) m/uL Hgb (13.0-17.5) gm/dL Hct (39.0-53.0) % MCV (80.0-100.0) fL RDW (11.5-15.5) % Neutrophils # (Manual) (1.3-7.7) k/uL Lymphocytes # (Manual) (1.0-4.8) k/uL Macrocytosis Sodium (137-145) mmol/L Chloride (98-107) mmol/L BUN (9-20) mg/dL Glucose (74-99) mg/dL POC Glucose (mg/dL) 125 H 117 H 120 H (75-99) mg/dL Calcium (8.4-10.2) mg/dL Alkaline Phosphatase (38-126) U/L Total Protein (6.3-8.2) g/dL Albumin (3.5-5.0) g/dL Crossmatch 04/15/20 04/15/20 04/15/20 Range/Units 04:31 04:31 07:00 WBC 12.6 H (3.8-10.6) k/uL RBC 2.07 L (4.30-5.90) m/uL Hgb 6.9 L* (13.0-17.5) gm/dL Hct 21.8 L (39.0-53.0) % MCV 105.8 H (80.0-100.0) fL RDW 20.9 H (11.5-15.5) % Neutrophils # (Manual) 10.90 H (1.3-7.7) k/uL Lymphocytes # (Manual) 0.88 L (1.0-4.8) k/uL Macrocytosis Marked A Sodium 135 L (137-145) mmol/L Chloride 108 H (98-107) mmol/L BUN 33 H (9-20) mg/dL Glucose 112 H (74-99) mg/dL POC Glucose (mg/dL) 122 H (75-99) mg/dL Calcium 7.9 L (8.4-10.2) mg/dL Alkaline Phosphatase 35 L (38-126) U/L Total Protein 4.4 L (6.3-8.2) g/dL Albumin 2.8 L (3.5-5.0) g/dL Crossmatch 04/15/20 04/15/20 04/15/20 Range/Units 08:28 09:51 12:13 WBC (3.8-10.6) k/uL RBC (4.30-5.90) m/uL Hgb (13.0-17.5) gm/dL Hct (39.0-53.0) % MCV (80.0-100.0) fL RDW (11.5-15.5) % Neutrophils # (Manual) (1.3-7.7) k/uL Lymphocytes # (Manual) (1.0-4.8) k/uL Macrocytosis Sodium (137-145) mmol/L Chloride (98-107) mmol/L BUN (9-20) mg/dL Glucose (74-99) mg/dL POC Glucose (mg/dL) 138 H 129 H 104 H (75-99) mg/dL Calcium (8.4-10.2) mg/dL Alkaline Phosphatase (38-126) U/L Total Protein (6.3-8.2) g/dL Albumin (3.5-5.0) g/dL Crossmatch Assessment and Plan Plan: Assessment and plan 1 post triple vessel coronary disease post 4 vessel coronary artery bypass grafting with KEANE to the LAD, left radial arterial graft to the OM, SVG to the PDA, SVG to the diagonal with left radial artery harvest along with left lower extremity endoscopy Vein harvest. 2 post surgical respiratory failure on mechanical ventilation been managed by pulmonary critical care. Patient has been successfully extubated. 3 hypertension: Was on metoprolol previous to surgery patient will be on metoprolol along with lisinopril. 4 hyperlipidemia: Was on atorvastatin 80 mg daily resume medication. 5 BPH: Continue Flomax watch for any urinary retention. 6 history of osteoarthritis post right total knee arthroplasty fusion ago has been doing well. 7 hyperglycemia: Accu-Chek with sliding scales coverage and be done watch for any significant hyperglycemia. Patient is on insulin drip. 8 mild anemia: Post surgery most likely from surgical blood loss was start patient on iron supplement along with multivitamins. Next 9 mild reactive airway: Was started on DuoNeb by pulmonary continue bronchodilator along with O2 for now. 10 DVT prophylaxis: Patient will be on heparin subcutaneous. 11 GI prophylaxis: Pantoprazole IV. 12. Blood loss anemia, patient received a total of 3 pints of packed red blood cells, CODE STATUS: Full code. Discharge plan: To be determined
[2020-04-15 18:01] LABS: Glucose,Whole Blood 133 mg/dL (75-99)
[2020-04-15] MEDS: TAMSULOSIN 0.4 MG CAP.ER.24H PO SCH (18:36)
[2020-04-15 19:58] LABS: Glucose,Whole Blood 137 mg/dL (75-99)
[2020-04-15] MEDS: SENNOSIDES-DOCUSATE SODIUM 1 EACH TAB PO SCH (20:04)
[2020-04-16] MEDS: HEPARIN SODIUM,PORCINE 5,000 UNIT/ML 1 ML VIAL SQ SCH ×3 (01:13→17:13)
[2020-04-16] MEDS: HYDROcodone/APAP 5-325MG 1 EACH TAB PO PRN (01:13)
[2020-04-16] MEDS: KETOROLAC 30 MG/ML 1 ML VIAL IVP SCH ×4 (04:27→20:19)
[2020-04-16] MEDS: SODIUM CHLORIDE 0.9% 1,000 ML IV SCH (04:27)
[2020-04-16 04:47] LABS: Anisocytosis Moderate; HCT 21.3 % (39.0-53.0); Hypochromasia Slight; MCH 32.7 pg (25.0-35.0); MCHC 31.9 g/dL (31.0-37.0); MCV 102.4 fL (80.0-100.0); Macrocytosis Moderate; Platelet Count 202 k/uL (150-450); RBC 2.08 m/uL (4.30-5.90); RDW 20.1 % (11.5-15.5); WBC 10.3 k/uL (3.8-10.6)
[2020-04-16 04:52] LABS: HGB 6.8 gm/dL (13.0-17.5)
[2020-04-16 05:01] LABS: Albumin 2.5 g/dL (3.5-5.0); Calcium 7.5 mg/dL (8.4-10.2); Potassium 4.8 mmol/L (3.5-5.1); Total Bilirubin 1.1 mg/dL (0.2-1.3); Total Protein 4.2 g/dL (6.3-8.2)
[2020-04-16 05:02] LABS: Band Neutrophils % 6 %; Large Platelets Present; Lymphocytes # (M) 0.93 k/uL (1.0-4.8); Metamyelocytes # (M) 0.21 k/uL (0); Metamyelocytes % 2 %; Monocytes # (M) 0.31 k/uL (0-1.0); Neutrophils % (M) 79 %; Nucleated Red Blood Cells 0 /100 WBC (0-0); Total Cells Counted 100
[2020-04-16 05:36] LABS: Anisocytosis Moderate; HCT 21.4 % (39.0-53.0); Hypochromasia Slight; MCH 31.9 pg (25.0-35.0); MCHC 31.1 g/dL (31.0-37.0); MCV 102.7 fL (80.0-100.0); Mean Platelet Volume 10.6; Platelet Count 183 k/uL (150-450); RBC 2.09 m/uL (4.30-5.90); WBC 10.5 k/uL (3.8-10.6)
[2020-04-16 05:39] LABS: HGB 6.7 gm/dL (13.0-17.5); Macrocytosis Marked
[2020-04-16] MEDS: DEXTROSE 5% IN WATER 100 ML with AMIODARONE 150 MG IV PRN ×4 (06:26→13:50)
[2020-04-16] MEDS: INSULIN ASPART (NovoLOG) 100 UNIT/ML VIAL SQ SCH ×4 (06:33→21:08)
[2020-04-16 06:34] LABS: Glucose,Whole Blood 121 mg/dL (75-99)
[2020-04-16] MEDS: FERROUS SULFATE 325 MG TAB PO SCH ×2 (06:34→17:13)
[2020-04-16] MEDS: ASCORBIC ACID 500 MG TAB PO SCH ×2 (06:34→17:13)
[2020-04-16] MEDS: PANTOPRAZOLE 40 MG TABLET PO SCH (06:34)
[2020-04-16] MEDS ORDERED: FUROSEMIDE 10 MG/ML 4 ML VIAL IV STA (06:51)
--- NOTE | 2020-04-16 07:12 | P.PN ---
Subjective Progress Note Date: 04/16/20 Principal diagnosis: Status post CABG This is a pleasant 79-year-old gentleman with coronary artery disease as well as diabetes and hypertension and dyslipidemia was admitted to the hospital yesterday and underwent elective CABG 4. The patient underwent KEANE to LAD, radial artery to OM, SVG to diagonal, and SVG to RCA. This is his post operation day #3. The patient was seen today 04/16/2020. Last night he went into atrial fibrillation with RVR and he is currently on amiodarone IV. The bolus is over and he just started on drip. The hemoglobin this morning is 6.7 and I recommended again the patient one unit of packed RBC to improve the hemoglobin as well as a blood pressure which has been soft. Otherwise he is on dual antiplatelet therapy along with a statin along with metoprolol. Objective - Vital Signs Vital signs: Vital Signs Temp 98.3 F 04/16/20 04:00 Pulse 97 04/16/20 07:00 Resp 16 04/16/20 07:00 BP 81/56 04/16/20 07:00 Pulse Ox 99 04/16/20 07:00 Intake & Output 04/15/20 04/16/20 04/16/20 18:59 06:59 18:59 Intake Total 713.742 512 Output Total 960 700 Balance -246.258 -188 Weight 87 kg Intake: IV 402 312 Pressure Bags 72 72 Sodium Chloride 0.9% 1, 330 240 000 ml @ 20 mls/hr IV . Q24H MANUEL Rx#:[id number] Intake, IV Titration 1.742 Amount Insulin Regular 100 unit 1.742 In Sodium Chloride 0.9% 100 ml @ Per Protocol IV .Q0M MANUEL Rx#:[id number] Oral 200 Blood Product 310 Rc As-1 Unit 310 [id number] Output: Chest Tube Drainage 160 300 Bilateral Mediastinal 20 Left 140 300 Urine 800 400 Straight 200 Other: Voiding Method Indwelling Catheter Urinal ABP, PAP, CO, CI - Last Documented Arterial Blood Pressure 96/49 Pulmonary Artery Pressure 28/7 Cardiac Output 6.1 Cardiac Index 3.1 - Constitutional General appearance: Present: no acute distress - Respiratory Respiratory: bilateral: diminished - Cardiovascular Rhythm: irregularly irregular - Labs CBC & Chem 7: 04/16/20 05:30 04/16/20 04:34 Labs: Abnormal Lab Results - Last 24 Hours (Table) 04/10/20 04/15/20 04/15/20 Range/Units 10:06 08:28 09:51 RBC (4.30-5.90) m/uL Hgb (13.0-17.5) gm/dL Hct (39.0-53.0) % MCV (80.0-100.0) fL RDW (11.5-15.5) % Neutrophils # (Manual) (1.3-7.7) k/uL Lymphocytes # (Manual) (1.0-4.8) k/uL Metamyelocytes # (Man) (0) k/uL Macrocytosis Sodium (137-145) mmol/L Chloride (98-107) mmol/L BUN (9-20) mg/dL Glucose (74-99) mg/dL POC Glucose (mg/dL) 138 H 129 H (75-99) mg/dL Calcium (8.4-10.2) mg/dL Alkaline Phosphatase (38-126) U/L Total Protein (6.3-8.2) g/dL Albumin (3.5-5.0) g/dL Crossmatch See Detail 04/15/20 04/15/20 04/15/20 Range/Units 12:13 17:59 19:58 RBC (4.30-5.90) m/uL Hgb (13.0-17.5) gm/dL Hct (39.0-53.0) % MCV (80.0-100.0) fL RDW (11.5-15.5) % Neutrophils # (Manual) (1.3-7.7) k/uL Lymphocytes # (Manual) (1.0-4.8) k/uL Metamyelocytes # (Man) (0) k/uL Macrocytosis Sodium (137-145) mmol/L Chloride (98-107) mmol/L BUN (9-20) mg/dL Glucose (74-99) mg/dL POC Glucose (mg/dL) 104 H 133 H 137 H (75-99) mg/dL Calcium (8.4-10.2) mg/dL Alkaline Phosphatase (38-126) U/L Total Protein (6.3-8.2) g/dL Albumin (3.5-5.0) g/dL Crossmatch 04/16/20 04/16/20 04/16/20 Range/Units 04:34 04:34 05:30 RBC 2.08 L 2.09 L (4.30-5.90) m/uL Hgb 6.8 L* 6.7 L* (13.0-17.5) gm/dL Hct 21.3 L 21.4 L (39.0-53.0) % MCV 102.4 H 102.7 H (80.0-100.0) fL RDW 20.1 H 20.0 H (11.5-15.5) % Neutrophils # (Manual) 8.70 H (1.3-7.7) k/uL Lymphocytes # (Manual) 0.93 L (1.0-4.8) k/uL Metamyelocytes # (Man) 0.21 H (0) k/uL Macrocytosis Marked A Sodium 135 L (137-145) mmol/L Chloride 108 H (98-107) mmol/L BUN 40 H (9-20) mg/dL Glucose 105 H (74-99) mg/dL POC Glucose (mg/dL) (75-99) mg/dL Calcium 7.5 L (8.4-10.2) mg/dL Alkaline Phosphatase 33 L (38-126) U/L Total Protein 4.2 L (6.3-8.2) g/dL Albumin 2.5 L (3.5-5.0) g/dL Crossmatch 04/16/20 Range/Units 06:33 RBC (4.30-5.90) m/uL Hgb (13.0-17.5) gm/dL Hct (39.0-53.0) % MCV (80.0-100.0) fL RDW (11.5-15.5) % Neutrophils # (Manual) (1.3-7.7) k/uL Lymphocytes # (Manual) (1.0-4.8) k/uL Metamyelocytes # (Man) (0) k/uL Macrocytosis Sodium (137-145) mmol/L Chloride (98-107) mmol/L BUN (9-20) mg/dL Glucose (74-99) mg/dL POC Glucose (mg/dL) 121 H (75-99) mg/dL Calcium (8.4-10.2) mg/dL Alkaline Phosphatase (38-126) U/L Total Protein (6.3-8.2) g/dL Albumin (3.5-5.0) g/dL Crossmatch Assessment and Plan Assessment: Assessment #1 severe triple-vessel CAD #2 status post CABG 4 as described above #3 atrial fibrillation with controlled heart rate #4 hypertension #5 dyslipidemia Plan #1 continue amiodarone IV and switched to amiodarone by mouth #2 continue dual antiplatelet therapy along with metoprolol #3 give the patient one unit of packed RBC #4 follow-up with the patient
[2020-04-16] MEDS: IPRATROPIUM-ALBUTEROL 3 ML NEB INHALATION SCH ×4 (08:21→20:24)
--- NOTE | 2020-04-16 08:37 | P.PN ---
Subjective Progress Note Date: 04/16/20 Principal diagnosis: Triple-vessel coronary artery disease, mild to moderate left ventricular dysfunction with preoperative EF 40-45%, mild mitral valve regurgitation, moderately dilated ascending aorta around 4.2 cm. Previous history of coronary artery disease status post remote inferior wall myocardial infarction with RCA stent, hypertension, hyperlipidemia, previous tobacco dependence with FEV1 88% of predicted, remote history of pneumonia, BPH, and family history of premature coronary artery disease with mother having CABG at 60 years old. POD #3 quadruple coronary artery bypass grafting using the left internal mammary artery to the left anterior descending artery, left radial artery from the aorta to the obtuse marginal artery, reverse saphenous vein graft from the aorta to the diagonal artery, reverse saphenous vein graft from the aorta to the junction of the RCA to the posterior descending artery. Exclusion of the left atrial appendage using a 35 mm after clip. Endoscopic harvesting of the left radial artery. Endoscopic harvesting of the left greater saphenous vein from the groin to above the ankle level. Intraoperative transesophageal echocardiogram and epi-aortic scanning. Intraoperative graft flow measurements using the Simplebooklet system. Postoperative acute blood loss anemia, expected given cardiopulmonary bypass pump, hemodilution, and patient's continued Plavix up until the day before surgery Postoperative atrial fibrillation, unexpected but common occurrence after open heart surgery The patient is currently sitting up in the recliner in the intensive care unit in no acute distress. He does complain of some post surgical type pain which is controlled on current medication regimen and less than yesterday, denies shortness of breath. He did ambulate short distances yesterday. Right internal jugular Cordis, right radial arterial line, left pleural chest tube all present. He did go into atrial fibrillation this morning and was initiated on amiodarone protocol, remains in afib but controlled rate. Hemoglobin was 6.9 yesterday morning, received one unit packed blood cells, hemoglobin this morning 6.7. Objective - Vital Signs Vital signs: Vital Signs Temp 98.2 F 04/16/20 08:00 Pulse 102 H 04/16/20 08:23 Resp 19 04/16/20 08:00 BP 100/59 04/16/20 08:00 Pulse Ox 98 04/16/20 08:00 Intake & Output 04/15/20 04/16/20 04/16/20 18:59 06:59 18:59 Intake Total 713.742 512 52 Output Total 960 700 0 Balance -246.258 -188 52 Weight 87 kg Intake: IV 402 312 52 Pressure Bags 72 72 12 Sodium Chloride 0.9% 1, 330 240 40 000 ml @ 20 mls/hr IV . Q24H [facility] Rx#:[id number] Intake, IV Titration 1.742 Amount Insulin Regular 100 unit 1.742 In Sodium Chloride 0.9% 100 ml @ Per Protocol IV .Q0M [facility] Rx#:[id number] Oral 200 Blood Product 310 Rc As-1 Unit 310 [id number] Output: Chest Tube Drainage 160 300 0 Bilateral Mediastinal 20 Left 140 300 0 Urine 800 400 0 Straight 200 Other: Voiding Method Indwelling Catheter Urinal ABP, PAP, CO, CI - Last Documented Arterial Blood Pressure 97/42 Pulmonary Artery Pressure 28/7 Cardiac Output 6.1 Cardiac Index 3.1 - Constitutional General appearance: Present: cooperative, no acute distress - Respiratory Details: Lungs sounds diminished bilaterally. Respirations even, nonlabored. Currently on 2 L nasal cannula with oxygen saturation 99%. Able to achieve 1000 mL on incentive spirometry. Strong cough with productive minimal clear sputum. Left pleural chest tube present continuous wall suction, 250 mL serosanguineous drainage overnight, 500 mL in the last 24 hours, no air leak present. - Cardiovascular Details: S1, S2 present. Regular rate and rhythm, sinus rhythm on telemetry. Sternum stable. Atrial epicardial pacemaker wires present, grounded. Palpable periph eral pulses bilaterally. No edema present. No calf pain or tenderness noted. Right internal jugular Cordis, right radial arterial line present. Heart hugger in place with patient demonstrating appropriate use. SCDs, antiembolism stockings present. - Gastrointestinal Gastrointestinal Comment(s): Abdomen soft, nontender, nondistended. Active bowel sounds present 4 quadrants. Tolerating diet. Positive flatus, negative bowel movement - Genitourinary Genitourinary Comment(s): Grimm discontinued yesterday, patient straight cathed for 200 mL - Integumentary Integumentary Comment(s): Skin is warm and dry with evidence of good perfusion. Anterior chest incision well approximated and covered with dry intact dressing. Left lower extremity EVH site well approximated. 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 Good cap refill. - Neurologic Neurologic: Present: CNII-XII intact - Musculoskeletal Musculoskeletal: Present: strength equal bilaterally - Psychiatric Psychiatric: Present: A&O x's 3, appropriate affect, intact judgment & insight - Allied health notes Allied health notes reviewed: nursing - Labs CBC & Chem 7: 04/16/20 05:30 04/16/20 04:34 Labs: Abnormal Lab Results - Last 24 Hours (Table) 04/10/20 04/15/20 04/15/20 Range/Units 10:06 08:28 09:51 RBC (4.30-5.90) m/uL Hgb (13.0-17.5) gm/dL Hct (39.0-53.0) % MCV (80.0-100.0) fL RDW (11.5-15.5) % Neutrophils # (Manual) (1.3-7.7) k/uL Lymphocytes # (Manual) (1.0-4.8) k/uL Metamyelocytes # (Man) (0) k/uL Macrocytosis Sodium (137-145) mmol/L Chloride (98-107) mmol/L BUN (9-20) mg/dL Glucose (74-99) mg/dL POC Glucose (mg/dL) 138 H 129 H (75-99) mg/dL Calcium (8.4-10.2) mg/dL Alkaline Phosphatase (38-126) U/L Total Protein (6.3-8.2) g/dL Albumin (3.5-5.0) g/dL Crossmatch See Detail 04/15/20 04/15/20 04/15/20 Range/Units 12:13 17:59 19:58 RBC (4.30-5.90) m/uL Hgb (13.0-17.5) gm/dL Hct (39.0-53.0) % MCV (80.0-100.0) fL RDW (11.5-15.5) % Neutrophils # (Manual) (1.3-7.7) k/uL Lymphocytes # (Manual) (1.0-4.8) k/uL Metamyelocytes # (Man) (0) k/uL Macrocytosis Sodium (137-145) mmol/L Chloride (98-107) mmol/L BUN (9-20) mg/dL Glucose (74-99) mg/dL POC Glucose (mg/dL) 104 H 133 H 137 H (75-99) mg/dL Calcium (8.4-10.2) mg/dL Alkaline Phosphatase (38-126) U/L Total Protein (6.3-8.2) g/dL Albumin (3.5-5.0) g/dL Crossmatch 04/16/20 04/16/20 04/16/20 Range/Units 04:34 04:34 05:30 RBC 2.08 L 2.09 L (4.30-5.90) m/uL Hgb 6.8 L* 6.7 L* (13.0-17.5) gm/dL Hct 21.3 L 21.4 L (39.0-53.0) % MCV 102.4 H 102.7 H (80.0-100.0) fL RDW 20.1 H 20.0 H (11.5-15.5) % Neutrophils # (Manual) 8.70 H (1.3-7.7) k/uL Lymphocytes # (Manual) 0.93 L (1.0-4.8) k/uL Metamyelocytes # (Man) 0.21 H (0) k/uL Macrocytosis Marked A Sodium 135 L (137-145) mmol/L Chloride 108 H (98-107) mmol/L BUN 40 H (9-20) mg/dL Glucose 105 H (74-99) mg/dL POC Glucose (mg/dL) (75-99) mg/dL Calcium 7.5 L (8.4-10.2) mg/dL Alkaline Phosphatase 33 L (38-126) U/L Total Protein 4.2 L (6.3-8.2) g/dL Albumin 2.5 L (3.5-5.0) g/dL Crossmatch 04/16/20 Range/Units 06:33 RBC (4.30-5.90) m/uL Hgb (13.0-17.5) gm/dL Hct (39.0-53.0) % MCV (80.0-100.0) fL RDW (11.5-15.5) % Neutrophils # (Manual) (1.3-7.7) k/uL Lymphocytes # (Manual) (1.0-4.8) k/uL Metamyelocytes # (Man) (0) k/uL Macrocytosis Sodium (137-145) mmol/L Chloride (98-107) mmol/L BUN (9-20) mg/dL Glucose (74-99) mg/dL POC Glucose (mg/dL) 121 H (75-99) mg/dL Calcium (8.4-10.2) mg/dL Alkaline Phosphatase (38-126) U/L Total Protein (6.3-8.2) g/dL Albumin (3.5-5.0) g/dL Crossmatch - Imaging and Cardiology Chest x-ray: image reviewed Assessment and Plan Assessment: 1. Triple-vessel coronary artery disease, status post four-vessel CABG 2. Mild to moderate left ventricular dysfunction, chronic systolic heart failure, preoperative EF 30-45% 3. Mild mitral valve regurgitation 4. Moderately dilated ascending aorta 4.2 cm 5. History of coronary artery disease status post remote inferior wall MS with RCA stent 6. History of hypertension, currently hypotensive 7. Hyperlipidemia 8. Previous tobacco dependence with FEV1 88% of predicted 9. Remote history of pneumonia 10. BPH 11. Family history of premature coronary artery disease 12. Postoperative acute blood loss anemia, status post blood transfusion 13. Postoperative afib, status post clip ligation of the left atrial appendage Plan: 1. Continue aspirin, statin, Plavix, beta branden. Will increase beta branden as tolerated. 2. Continue low-dose calcium channel branden for radial artery spasm. Please do not discontinue without discussing with cardiac surgery 3. Continue amiodarone for afib prophylaxis. Will transition to oral amio. No anticoagulation at this time 4. Wean O2 as tolerated. Bronchodilators per pulmonology Encourage incentive spirometry 10 times every hour while awake 5. Increase activity, ambulate as tolerated. PT/OT/cardiac rehab following 6. Will monitor daily labs and x-rays. Electrolyte replacement per protocol. Will transfuse 1 unit packed red blood cells today. Lasix 40 mg IVP given this morning per Dr. Lopez 7. Pain control with current medication regimen 8. Insulin management per primary care service. Hemoglobin A1c preoperatively 5.2% 9. May bladder scan and straight cath for greater than 300 mL residual 10. Will keep chest tube for another 24 hours. 11. DC cordis after blood transfusion. 12. More recommendations to follow based on patient's progress Time with Patient: Greater than 30
[2020-04-16] MEDS: ATORVASTATIN 40 MG TAB PO SCH (10:10)
[2020-04-16] MEDS: MULTIVITAMINS, THERA 1 EACH TAB PO SCH (10:10)
[2020-04-16] MEDS: ASPIRIN 325 MG TAB PO SCH (10:10)
[2020-04-16] MEDS: CLOPIDOGREL 75 MG TAB PO SCH (10:10)
[2020-04-16] MEDS: METOPROLOL TARTRATE 12.5 MG TAB PO SCH (10:10)
[2020-04-16] MEDS: MUPIROCIN 2% OINT 22 GM TUBE NASAL SCH ×2 (10:12→20:19)
[2020-04-16 11:46] LABS: Glucose,Whole Blood 150 mg/dL (75-99)
[2020-04-16] MEDS: amLODIPine 2.5 MG TAB PO SCH (12:00)
[2020-04-16] MEDS: AMIODARONE 300 MG in DEXTROSE 5% IN WATER 250 ML IV PRN ×4 (12:15→23:10)
--- NOTE | 2020-04-16 12:30 | P.PN ---
Subjective Progress Note Date: 04/16/20 04/16/2020, the patient is postop day #3. He is currently on oxygen at 2 by nasal cannula. He was recovering nicely and he was doing well until this morning when he developed an atrial fibrillation with rapid ventricular response. Currently is on amiodarone loading at 1 mg an hour. He did not have any significant hemodynamic instability or hypotension. He remains on normal state rate of 20 mL an hour. Hemoglobin done at 6.8 and the patient is going to receive a unit of packed RBC. He is pulling approximately 1500 on the incentive spirometer. The medius chest tubes have been removed. Left-sided chest tube is still in place. Output has been noted. Output will be monitored. Tolerating diet. No nausea vomiting, chest pain. No other significant events overnight. Objective - Vital Signs Vital signs: Vital Signs Temp 98.2 F 04/16/20 12:00 Pulse 129 H 04/16/20 12:00 Resp 13 04/16/20 12:00 BP 99/70 04/16/20 11:00 Pulse Ox 97 04/16/20 12:00 Intake & Output 04/15/20 04/16/20 04/16/20 18:59 06:59 18:59 Intake Total 713.742 512 356 Output Total 960 700 80 Balance -246.258 -188 276 Weight 87 kg Intake: IV 402 312 156 Pressure Bags 72 72 36 Sodium Chloride 0.9% 1, 330 240 120 000 ml @ 20 mls/hr IV . Q24H [facility] Rx#:[id number] Intake, IV Titration 1.742 200 Amount Amiodarone 360 mg In 200 Dextrose 5% in Water 200 ml @ 1 MG/MIN 33.333 mls/ hr IV .Q6H PRN Rx#: [id number] Insulin Regular 100 unit 1.742 In Sodium Chloride 0.9% 100 ml @ Per Protocol IV .Q0M [facility] Rx#:[id number] Oral 200 Blood Product 310 0 Rc As-1 Unit 310 [id number] Rc As-1 Unit 0 [id number] Output: Chest Tube Drainage 160 300 30 Bilateral Mediastinal 20 Left 140 300 30 Urine 800 400 50 Straight 200 Other: Voiding Method Indwelling Catheter Urinal Urinal ABP, PAP, CO, CI - Last Documented Arterial Blood Pressure 101/56 Pulmonary Artery Pressure 28/7 Cardiac Output 6.1 Cardiac Index 3.1 - Exam - Constitutional General appearance: Present: cooperative, no acute distress - Respiratory Details: Lungs sounds diminished bilaterally. Respirations even, nonlabored. Currently on 2 L nasal cannula with oxygen saturation 99%. Able to achieve 1000 mL on incentive spirometry. Strong cough with productive minimal clear sputum. Left pleural chest tube present continuous wall suction, 250 mL serosanguineous drainage overnight, 500 mL in the last 24 hours, no air leak present. - Cardiovascular Details: S1, S2 present. Regular rate and rhythm, sinus rhythm on telemetry. Sternum stable. Atrial epicardial pacemaker wires present, grounded. Palpable peripheral pulses bilaterally. No edema present. No calf pain or tenderness noted. Right internal jugular Cordis, right radial arterial line present. Heart hugger in place with patient demonstrating appropriate use. SCDs, anti embolism stockings present. - Gastrointestinal Gastrointestinal Comment(s): Abdomen soft, nontender, nondistended. Active bowel sounds present 4 quadrants. Tolerating diet. Positive flatus, negative bowel movement - Genitourinary Genitourinary Comment(s): Grimm discontinued yesterday, patient straight cathed for 200 mL - Integumentary Integumentary Comment(s): Skin is warm and dry with evidence of good perfusion. Anterior chest incision well approximated and covered with dry intact dressing. Left lower extremity EVH site well approximated. 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 Good cap refill. - Neurologic Neurologic: Present: CNII-XII intact - Musculoskeletal Musculoskeletal: Present: strength equal bilaterally - Psychiatric Psychiatric: Present: A&O x's 3, appropriate affect, intact judgment & insight - Labs CBC & Chem 7: 04/16/20 05:30 04/16/20 04:34 Labs: Abnormal Lab Results - Last 24 Hours (Table) 04/10/20 04/15/20 04/15/20 Range/Units 10:06 17:59 19:58 RBC (4.30-5.90) m/uL Hgb (13.0-17.5) gm/dL Hct (39.0-53.0) % MCV (80.0-100.0) fL RDW (11.5-15.5) % Neutrophils # (Manual) (1.3-7.7) k/uL Lymphocytes # (Manual) (1.0-4.8) k/uL Metamyelocytes # (Man) (0) k/uL Macrocytosis Sodium (137-145) mmol/L Chloride (98-107) mmol/L BUN (9-20) mg/dL Glucose (74-99) mg/dL POC Glucose (mg/dL) 133 H 137 H (75-99) mg/dL Calcium (8.4-10.2) mg/dL Alkaline Phosphatase (38-126) U/L Total Protein (6.3-8.2) g/dL Albumin (3.5-5.0) g/dL Crossmatch See Detail 04/16/20 04/16/20 04/16/20 Range/Units 04:34 04:34 05:30 RBC 2.08 L 2.09 L (4.30-5.90) m/uL Hgb 6.8 L* 6.7 L* (13.0-17.5) gm/dL Hct 21.3 L 21.4 L (39.0-53.0) % MCV 102.4 H 102.7 H (80.0-100.0) fL RDW 20.1 H 20.0 H (11.5-15.5) % Neutrophils # (Manual) 8.70 H (1.3-7.7) k/uL Lymphocytes # (Manual) 0.93 L (1.0-4.8) k/uL Metamyelocytes # (Man) 0.21 H (0) k/uL Macrocytosis Marked A Sodium 135 L (137-145) mmol/L Chloride 108 H (98-107) mmol/L BUN 40 H (9-20) mg/dL Glucose 105 H (74-99) mg/dL POC Glucose (mg/dL) (75-99) mg/dL Calcium 7.5 L (8.4-10.2) mg/dL Alkaline Phosphatase 33 L (38-126) U/L Total Protein 4.2 L (6.3-8.2) g/dL Albumin 2.5 L (3.5-5.0) g/dL Crossmatch 04/16/20 04/16/20 04/16/20 Range/Units 06:33 06:50 11:43 RBC (4.30-5.90) m/uL Hgb (13.0-17.5) gm/dL Hct (39.0-53.0) % MCV (80.0-100.0) fL RDW (11.5-15.5) % Neutrophils # (Manual) (1.3-7.7) k/uL Lymphocytes # (Manual) (1.0-4.8) k/uL Metamyelocytes # (Man) (0) k/uL Macrocytosis Sodium (137-145) mmol/L Chloride (98-107) mmol/L BUN (9-20) mg/dL Glucose (74-99) mg/dL POC Glucose (mg/dL) 121 H 150 H (75-99) mg/dL Calcium (8.4-10.2) mg/dL Alkaline Phosphatase (38-126) U/L Total Protein (6.3-8.2) g/dL Albumin (3.5-5.0) g/dL Crossmatch See Detail Assessment and Plan Plan: #1. Significant triple vessel coronary artery disease, status post four-vessel coronary artery bypass grafting with KEANE to the LAD, left radial arterial graft to the OM, SVG to the PDA, SVG to the diagonal, with left radial artery harvest, left lower extremity endoscopic vein harvest, and exclusion of the left atrial appendage with 35mm Atriclip, postoperative day #3 and the patient is doing well and then the patient was extubated without any major difficulties. #2. Post thoracotomy and the patient has chest tubes in place. Hemodynamically stable. Extubated blood any major difficulties currently on 2 L of oxygen by n pamela cannula. The patient is doing well and the patient's still using incentive spirometer. No signs of any respiratory distress for now. The mediastinal chest tubes are removed and the patient has left pleural chest tube still in place. No evidence of any pneumothorax. Output has been noted. #3. Coronary artery disease with previous history of PCI and stenting of the RCA #4. 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 Hypertension #7. Hyperlipidemia #8. Osteoarthritis #9 postoperative anemia, expected outcome of surgery, hemoglobin is at 6.7, expected outcome of surgery #10, dilated ascending aorta measuring 4.2 cm in size. #11 new onset atrial fibrillation with rapid ventricular response and the patient is currently on amiodarone loading per protocol. Plan Monitor the hemoglobin. Transfuse 2 units of packed RBC Amiodarone loading per protocol and monitored atrial fibrillation Monitor the output from the chest tube and a the mediastinal chest abdomen removed Continue using incentive spirometer. Advance diet and keep insulin drip for another 24 hours. Routine postoperative care. Chest x-ray was reviewed and is adequate expansion of both lungs.
--- NOTE | 2020-04-16 14:32 | XR ---
EXAMINATION TYPE: XR chest 1V portable DATE OF EXAM: 04/16/2020 CLINICAL HISTORY: Post cardiac surgery TECHNIQUE: Portable upright view of the chest obtained COMPARISON: 04/15/2020 chest radiograph FINDINGS: Sternotomy wires and left atrial appendage clip redemonstrated. Tube coursing vertically o nneka the right lateral chest may be external to patient, and distally overlies EKG lead. Right interna l jugular [place] sheath redemonstrated. Low lung volumes. Cardiomegaly. Mediastinal silhouette nor mal. Pulmonary vasculature normal. Mildly improved aeration at the right lung base. Persistent small right pleural effusion. No pneumothorax. IMPRESSION: 1. Mildly improved aeration of the right lung base. 2. Persistent small right pleural effusion. 3. Linear density vertically oriented over the right lateral hemithorax may represent chest tube or b e external to patient, and distally overlies EKG lead.
--- NOTE | 2020-04-16 14:52 | P.PN ---
Subjective Progress Note Date: 04/16/20 79-year-old male one of my office patient with long-standing history of CAD post [place] with history of PCI and stent placement of the right coronary artery disease over 10 years ago who is known to have history of hypertension hyperlipidemia and previous history of tobacco dependency patient has been doing natural management for many years has become slightly bit symptomatic lately with significant shortness of breath and decrease endurance when attempted to walk and ambulate was seen Dr. FRANK patel and end up going for stress test showed moderate area of infarct ischemic change patient ended up going for heart cath on 03/09/2020 finding was consistent with 80 percentile blockage of the LAD, 70% blockage in the mid LAD, 90% blockage of the circumflex and 95% blockage of the RCA. Patient was seen cardiothoracic surgeon and plan for bypass surgery with surgery scheduled for today ended up having 4 vessel bypass surgery and was sent to the ICU on mechanical ventilation. Patient otherwise hemodynamically stable has 2 mediastinal and left pleural tube in place has been draining some. 04/14: Patient is seen today in the intensive care unit. Patient is in the recliner and appears to be comfortable. He was successfully extubated last evening. He is status post one unit of packed RBCs this morning. Patient has been afebrile, heart rate 84, blood pressure 113/43, pulse ox 99% on 2 L nasal cannula. Blood sugars are running between 110 and 130. He has been on insulin drip at 2 units currently on hold for blood sugar 110. Repeat blood work revealed WBC 11.7, hemoglobin 7.8. Sodium 138, potassium 5.0, chloride 109, CO2 25, BUN 23 and creatinine 0.79. 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 04/15: Patient remains in ICU, he is comfortable without any shortness of breath, he has minimal amount of edema however he mentions this is much better, patient has left-sided rib pain, still has one Cordis left main the left side. Patient is receiving 1 unit of packed red blood cells earlier today, total of 2 units post surgery and 1 unit pre-surgery hemoglobin at 6.9, WBC count of 12.6, potassium 4.9 creatinine 0.93. Blood sugars ranging 104-138 albumin is low at 2.8 , on oral iron 325 mg twice a day, Plavix aspirin Lopressor and insulin scale. Daughter is at bedside, questions were answered, no lightheadedness or dizziness identified today, Grimm catheter is in place, attempt to discontinue it this evening Review of systems CONSTITUTIONAL: Denies fever, denies chills. EYES: No icterus sclerae, no conjunctivitis. EARS, NOSE, MOUTH, THROAT, and FACE: No sore throat, lymphadenopathy, carotid bruits or deformity. RESPIRATORY: On mechanical ventilation. And 3 chest tubes in. CARDIOVASCULAR: 4 vessel CABG with incision looks fine. Postop surgical pain. GASTROINTESTINAL: No Abd pain, Nausea or vomiting, no Diarrhea or constipation, No GI Bleed, no distention or masses. GENITOURINARY: Negative for Hematuria or UTI, no kidney stones. INTEGUMENT/BREAST: Negative for any muscular injury with mild osteoarthritis.. HEMATOLOGIC/LYMPHATIC: Negative for bleed or purpura. MUSCULOSKELTAL: Negative for Myalgia or arthralgia. NEURLOGICAL: Sedated on mechanical ventilation is still awaking for pain stimuli. BEHAVIORAL/PSYCH: Negative. ENDOCRINE: Negative. Blood sugars controlled Objective - Vital Signs Vital signs: Vital Signs Temp 98.2 F 04/16/20 12:00 Pulse 79 04/16/20 14:00 Resp 12 04/16/20 14:00 BP 99/70 04/16/20 11:00 Pulse Ox 98 04/16/20 14:00 Intake & Output 04/15/20 04/16/20 04/16/20 18:59 06:59 18:59 Intake Total 713.742 512 408 Output Total 960 700 180 Balance -246.258 -188 228 Weight 87 kg Intake: IV 402 312 208 Pressure Bags 72 72 48 Sodium Chloride 0.9% 1, 330 240 160 000 ml @ 20 mls/hr IV . Q24H MANUEL Rx#:[id number] Intake, IV Titration 1.742 200 Amount Amiodarone 360 mg In 200 Dextrose 5% in Water 200 ml @ 1 MG/MIN 33.333 mls/ hr IV .Q6H PRN Rx#: [id number] Insulin Regular 100 unit 1.742 In Sodium Chloride 0.9% 100 ml @ Per Protocol IV .Q0M MANUEL Rx#:[id number] Oral 200 Blood Product 310 0 Rc As-1 Unit 310 [id number] Rc As-1 Unit 0 [id number] Output: Chest Tube Drainage 160 300 30 Bilateral Mediastinal 20 Left 140 300 30 Urine 800 400 150 Straight 200 Other: Voiding Method Indwelling Catheter Urinal Urinal ABP, PAP, CO, CI - Last Documented Arterial Blood Pressure 97/46 Pulmonary Artery Pressure 28/7 Cardiac Output 6.1 Cardiac Index 3.1 - Constitutional General appearance: Present: cooperative, obese - EENT Eyes: Present: anicteric sclerae, dentition normal, normal appearance ENT: Present: NA/AT, normal oropharynx - Neck Neck: Present: normal ROM - Respiratory Respiratory: bilateral: CTA, negative: diminished, dullness, rales, rhonchi - Cardiovascular Rhythm: regular Heart sounds: normal: S1, S2 Abnormal Heart Sounds: Absent: systolic murmur, diastolic murmur, rub, S3 Gallop, S4 Gallop, click, other - Gastrointestinal General gastrointestinal: Present: normal bowel sounds, soft - Integumentary Integumentary: Present: normal - Neurologic Neurologic: Present: CNII-XII intact - Musculoskeletal Musculoskeletal: Present: gait normal, strength equal bilaterally - Psychiatric Psychiatric: Present: A&O x's 3, appropriate affect, intact judgment & insight - Labs CBC & Chem 7: 04/16/20 05:30 04/16/20 04:34 Labs: Abnormal Lab Results - Last 24 Hours (Table) 04/10/20 04/15/20 04/15/20 Range/Units 10:06 17:59 19:58 RBC (4.30-5.90) m/uL Hgb (13.0-17.5) gm/dL Hct (39.0-53.0) % MCV (80.0-100.0) fL RDW (11.5-15.5) % Neutrophils # (Manual) (1.3-7.7) k/uL Lymphocytes # (Manual) (1.0-4.8) k/uL Metamyelocytes # (Man) (0) k/uL Macrocytosis Sodium (137-145) mmol/L Chloride (98-107) mmol/L BUN (9-20) mg/dL Glucose (74-99) mg/dL POC Glucose (mg/dL) 133 H 137 H (75-99) mg/dL Calcium (8.4-10.2) mg/dL Alkaline Phosphatase (38-126) U/L Total Protein (6.3-8.2) g/dL Albumin (3.5-5.0) g/dL Crossmatch See Detail 04/16/20 04/16/20 04/16/20 Range/Units 04:34 04:34 05:30 RBC 2.08 L 2.09 L (4.30-5.90) m/uL Hgb 6.8 L* 6.7 L* (13.0-17.5) gm/dL Hct 21.3 L 21.4 L (39.0-53.0) % MCV 102.4 H 102.7 H (80.0-100.0) fL RDW 20.1 H 20.0 H (11.5-15.5) % Neutrophils # (Manual) 8.70 H (1.3-7.7) k/uL Lymphocytes # (Manual) 0.93 L (1.0-4.8) k/uL Metamyelocytes # (Man) 0.21 H (0) k/uL Macrocytosis Marked A Sodium 135 L (137-145) mmol/L Chloride 108 H (98-107) mmol/L BUN 40 H (9-20) mg/dL Glucose 105 H (74-99) mg/dL POC Glucose (mg/dL) (75-99) mg/dL Calcium 7.5 L (8.4-10.2) mg/dL Alkaline Phosphatase 33 L (38-126) U/L Total Protein 4.2 L (6.3-8.2) g/dL Albumin 2.5 L (3.5-5.0) g/dL Crossmatch 04/16/20 04/16/20 04/16/20 Range/Units 06:33 06:50 11:43 RBC (4.30-5.90) m/uL Hgb (13.0-17.5) gm/dL Hct (39.0-53.0) % MCV (80.0-100.0) fL RDW (11.5-15.5) % Neutrophils # (Manual) (1.3-7.7) k/uL Lymphocytes # (Manual) (1.0-4.8) k/uL Metamyelocytes # (Man) (0) k/uL Macrocytosis Sodium (137-145) mmol/L Chloride (98-107) mmol/L BUN (9-20) mg/dL Glucose (74-99) mg/dL POC Glucose (mg/dL) 121 H 150 H (75-99) mg/dL Calcium (8.4-10.2) mg/dL Alkaline Phosphatase (38-126) U/L Total Protein (6.3-8.2) g/dL Albumin (3.5-5.0) g/dL Crossmatch See Detail Assessment and Plan Plan: Assessment and plan 1 post triple vessel coronary disease post 4 vessel coronary artery bypass grafting with KEANE to the LAD on 04/13/2020 postop day #3, left radial arterial graft to the OM, SVG to the PDA, SVG to the diagonal with left radial artery harvest along with left lower extremity endoscopy Vein harvest. Still requiring blood transfusion, total 5 units of packed red blood cells, as directed by primary service 2 post surgical respiratory failure on mechanical ventilation been managed by pulmonary critical care. Patient has been successfully extubated. 3 hypertension: Was on metoprolol previous to surgery patient will be on metopro lol along with lisinopril. 4 hyperlipidemia: Was on atorvastatin 80 mg daily resume medication. 5 BPH: Continue Flomax watch for any urinary retention. 6 history of osteoarthritis post right total knee arthroplasty fusion ago has been doing well. 7 hyperglycemia: Accu-Chek with sliding scales coverage and be done watch for any significant hyperglycemia. Patient is on insulin drip. 8 mild anemia: Post surgery most likely from surgical blood loss was start patient on iron supplement along with multivitamins. Check for iron studies, and haptoglobin and reticulocyte count 9 mild reactive airway: Was started on DuoNeb by pulmonary continue bronchodilator along with O2 for now. 10 DVT prophylaxis: Patient will be on heparin subcutaneous. 11 GI prophylaxis: Pantoprazole IV. 12. Blood loss anemia LAD loss, patient received a total of 5 pints of packed red blood cells, will monitor for haptoglobin iron studies, to evaluate for hemolytic anemia, CODE STATUS: Full code. Discharge plan: To be determined
[2020-04-16] MEDS ORDERED: METOPROLOL TARTRATE 12.5 MG TAB PO STA (15:06)
[2020-04-16 16:11] LABS: Glucose,Whole Blood 152 mg/dL (75-99)
[2020-04-16 16:59] LABS: Glucose,Whole Blood 135 mg/dL (75-99)
[2020-04-16] MEDS: TAMSULOSIN 0.4 MG CAP.ER.24H PO SCH (17:54)
[2020-04-16] MEDS: AMIODARONE 200 MG TAB PO SCH (20:17)
[2020-04-16] MEDS: SENNOSIDES-DOCUSATE SODIUM 1 EACH TAB PO SCH (20:18)
[2020-04-16] MEDS: METOPROLOL TARTRATE 25 MG TAB PO SCH (20:18)
[2020-04-16 21:03] LABS: Glucose,Whole Blood 144 mg/dL (75-99)
[2020-04-17] MEDS: HEPARIN SODIUM,PORCINE 5,000 UNIT/ML 1 ML VIAL SQ SCH (00:43)
[2020-04-17 05:01] LABS: Anisocytosis Slight; Basophils % (A) 0 %; Eosinophils # (A) 0.3 k/uL (0-0.7); Eosinophils % (A) 3 %; HCT 23.6 % (39.0-53.0); HGB 7.9 gm/dL (13.0-17.5); Lymphocytes # (A) 1.3 k/uL (1.0-4.8); Lymphocytes % (A) 14 %; MCH 32.9 pg (25.0-35.0); MCHC 33.3 g/dL (31.0-37.0); MCV 98.8 fL (80.0-100.0); Macrocytosis Moderate; Mean Platelet Volume 9.3; Monocytes # (A) 0.4 k/uL (0-1.0); Monocytes % (A) 5 %; Neutrophils # (A) 7.2 k/uL (1.3-7.7); Neutrophils % (A) 77 %; Platelet Count 245 k/uL (150-450); RBC 2.39 m/uL (4.30-5.90); RDW 19.6 % (11.5-15.5); Reticulocyte % 2.2 % (0.5-2.0); WBC 9.4 k/uL (3.8-10.6)
[2020-04-17 05:05] LABS: ALT 19 U/L (4-49); AST 41 U/L (17-59); African American GFR (CKD) >90 (>60 ml/min/1.73 sqM); Albumin 2.6 g/dL (3.5-5.0); Alkaline Phosphatase 40 U/L (38-126); Anion Gap 7 mmol/L; Blood Urea Nitrogen 40 mg/dL (9-20); Calcium 7.6 mg/dL (8.4-10.2); Carbon Dioxide 24 mmol/L (22-30); Chloride 104 mmol/L (98-107); Glucose 106 mg/dL (74-99); Non-African American GFR(CKD) 83 (>60 ml/min/1.73 sqM); Potassium 4.5 mmol/L (3.5-5.1); Sodium 135 mmol/L (137-145); Total Bilirubin 1.1 mg/dL (0.2-1.3); Total Protein 4.3 g/dL (6.3-8.2)
[2020-04-17] MEDS: PANTOPRAZOLE 40 MG TABLET PO SCH ×2 (05:21→05:22)
[2020-04-17] MEDS: KETOROLAC 30 MG/ML 1 ML VIAL IVP SCH ×4 (05:21→21:40)
[2020-04-17] MEDS: ASCORBIC ACID 500 MG TAB PO SCH ×2 (05:22→16:56)
[2020-04-17] MEDS: FERROUS SULFATE 325 MG TAB PO SCH ×2 (05:22→16:56)
[2020-04-17 05:35] LABS: Anisocytosis (M) Present; Basophilic Stippling Present; Polychromasia Present
[2020-04-17] MEDS ORDERED: MAGNESIUM HYDROXIDE 2,400 MG/10 ML CUP PO ONE (06:49)
[2020-04-17] MEDS ORDERED: bisacodyL 10 MG SUPP RECTAL STA (06:50)
[2020-04-17 07:08] LABS: Glucose,Whole Blood 114 mg/dL (75-99)
--- NOTE | 2020-04-17 07:18 | P.PN ---
Subjective Progress Note Date: 04/17/20 Principal diagnosis: Triple-vessel coronary artery disease, mild to moderate left ventricular dysfunction with preoperative EF 40-45%, mild mitral valve regurgitation, moderately dilated ascending aorta around 4.2 cm. Previous history of coronary artery disease status post remote inferior wall myocardial infarction with RCA stent, hypertension, hyperlipidemia, previous tobacco dependence with FEV1 88% of predicted, remote history of pneumonia, BPH, and family history of premature coronary artery disease with mother having CABG at 60 years old. POD #4 quadruple coronary artery bypass grafting using the left internal mammary artery to the left anterior descending artery, left radial artery from the aorta to the obtuse marginal artery, reverse saphenous vein graft from the aorta to the diagonal artery, reverse saphenous vein graft from the aorta to the junction of the RCA to the posterior descending artery. Exclusion of the left atrial appendage using a 35 mm after clip. Endoscopic harvesting of the left radial artery. Endoscopic harvesting of the left greater saphenous vein from the groin to above the ankle level. Intraoperative transesophageal echocardiogram and epi-aortic scanning. Intraoperative graft flow measurements using the [employer] system. Postoperative acute blood loss anemia, expected given cardiopulmonary bypass pump, hemodilution, and patient's continued Plavix up until the day before surgery Postoperative atrial fibrillation, unexpected but common occurrence after open heart surgery Postoperative urinary retention, expected given history of BPH The patient is currently sitting up in the recliner in the intensive care unit in no acute distress. States pain is controlled on current medication regimen, denies shortness of breath. He did ambulate short distances yesterday. Right radial arterial line, left pleural chest tube present. He remains in atrial flutter with controlled rate. Hemoglobin was 6.7 yesterday morning, received one unit packed blood cells, hemoglobin this morning 7.9. Voided twice yesterday but unable to empty bladder completely, had to be straight cathed x 2 for 1 liter followed by 640 mL this morning. Grimm catheter replaced. Objective - Vital Signs Vital signs: Vital Signs Temp 98 F 04/17/20 04:00 Pulse 90 04/17/20 06:00 Resp 20 04/17/20 06:00 BP 100/68 04/16/20 21:00 Pulse Ox 95 04/17/20 06:00 Intake & Output 04/16/20 04/17/20 04/17/20 18:59 06:59 18:59 Intake Total 848 483 Output Total 1310 1380 Balance -462 -897 Weight 88.4 kg Intake: IV 338 233 Pressure Bags 78 33 Sodium Chloride 0.9% 1, 260 200 000 ml @ 20 mls/hr IV . Q24H [facility]UEL Rx#:[id number] Intake, IV Titration 200 250 Amount Amiodarone 300 mg In 250 Dextrose 5% in Water 250 ml @ 0.5 MG/MIN 25 mls/hr IV .Q10H PRN Rx#: [id number] Amiodarone 360 mg In 200 Dextrose 5% in Water 200 ml @ 1 MG/MIN 33.333 mls/ hr IV .Q6H PRN Rx#: [id number] Blood Product 310 Rc As-1 Unit 310 [id number] Output: Chest Tube Drainage 160 100 Left 160 100 Urine 1150 1280 Other: Voiding Method Urinal Urinal ABP, PAP, CO, CI - Last Documented Arterial Blood Pressure 127/61 Pulmonary Artery Pressure 28/7 Cardiac Output 6.1 Cardiac Index 3.1 - Constitutional General appearance: Present: cooperative, no acute distress - Respiratory Details: Lungs sounds diminished bilaterally. Respirations even, nonlabored. Currently on 2 L nasal cannula with oxygen saturation 95%. Able to achieve 750 mL on incentive spirometry. Strong cough with productive minimal clear sputum. Left pleural chest tube present continuous wall suction, 90 mL serosanguineous drainage overnight, 300 mL in the last 24 hours, no air leak present. - Cardiovascular Details: S1, S2 present. Regular rate and rhythm, sinus rhythm on telemetry. Sternum stable. Atrial epicardial pacemaker wires present, grounded. Palpable pe ripheral pulses bilaterally. No edema present. No calf pain or tenderness noted. Right radial arterial line present. Heart hugger in place with patient demonstrating appropriate use. SCDs, antiembolism stockings present. - Gastrointestinal Gastrointestinal Comment(s): Abdomen soft, nontender, nondistended. Active bowel sounds present 4 quadrants. Tolerating diet. Positive flatus, negative bowel movement - Genitourinary Genitourinary Comment(s): Grimm replaced this morning, draining clear yellow urine - Integumentary Integumentary Comment(s): Skin is warm and dry with evidence of good perfusion. Anterior chest incision well approximated and covered with dry intact dressing. Left lower extremity EVH site well approximated. Left radial artery harvest site well approximated, patient is able to wiggle fingers and cellulose insulation helper appropriately. Good cap refill. - Neurologic Neurologic: Present: CNII-XII intact - Musculoskeletal Musculoskeletal: Present: gait normal, strength equal bilaterally - Psychiatric Psychiatric: Present: A&O x's 3, appropriate affect, intact judgment & insight - Allied health notes Allied health notes reviewed: nursing - Labs CBC & Chem 7: 04/17/20 04:50 04/17/20 04:50 Labs: Abnormal Lab Results - Last 24 Hours (Table) 04/10/20 04/16/20 04/16/20 Range/Units 10:06 06:50 11:43 RBC (4.30-5.90) m/uL Hgb (13.0-17.5) gm/dL Hct (39.0-53.0) % RDW (11.5-15.5) % Retic Count (0.5-2.0) % Sodium (137-145) mmol/L BUN (9-20) mg/dL Glucose (74-99) mg/dL POC Glucose (mg/dL) 150 H (75-99) mg/dL Calcium (8.4-10.2) mg/dL Total Protein (6.3-8.2) g/dL Albumin (3.5-5.0) g/dL Crossmatch See Detail See Detail 04/16/20 04/16/20 04/16/20 Range/Units 16:10 16:58 21:00 RBC (4.30-5.90) m/uL Hgb (13.0-17.5) gm/dL Hct (39.0-53.0) % RDW (11.5-15.5) % Retic Count (0.5-2.0) % Sodium (137-145) mmol/L BUN (9-20) mg/dL Glucose (74-99) mg/dL POC Glucose (mg/dL) 152 H 135 H 144 H (75-99) mg/dL Calcium (8.4-10.2) mg/dL Total Protein (6.3-8.2) g/dL Albumin (3.5-5.0) g/dL Crossmatch 04/17/20 04/17/20 Range/Units 04:50 04:50 RBC 2.39 L (4.30-5.90) m/uL Hgb 7.9 L (13.0-17.5) gm/dL Hct 23.6 L (39.0-53.0) % RDW 19.6 H (11.5-15.5) % Retic Count 2.2 H (0.5-2.0) % Sodium 135 L (137-145) mmol/L BUN 40 H (9-20) mg/dL Glucose 106 H (74-99) mg/dL POC Glucose (mg/dL) (75-99) mg/dL Calcium 7.6 L (8.4-10.2) mg/dL Total Protein 4.3 L (6.3-8.2) g/dL Albumin 2.6 L (3.5-5.0) g/dL Crossmatch - Imaging and Cardiology Chest x-ray: image reviewed Assessment and Plan Assessment: 1. Triple-vessel coronary artery disease, status post four-vessel CABG 2. Mild to moderate left ventricular dysfunction, chronic systolic heart failure, preoperative EF 30-45% 3. Mild mitral valve regurgitation 4. Moderately dilated ascending aorta 4.2 cm 5. History of coronary artery disease status post remote inferior wall ID with RCA stent 6. History of hypertension, currently hypotensive 7. Hyperlipidemia 8. Previous tobacco dependence with FEV1 88% of predicted 9. Remote history of pneumonia 10. BPH 11. Family history of premature coronary artery disease 12. Postoperative acute blood loss anemia, status post blood transfusion 13. Postoperative afib, status post clip ligation of the left atrial appendage 14. Postoperative urinary retention Plan: 1. Continue aspirin, statin, Plavix, beta branden. Will increase beta branden as tolerated. 2. Continue low-dose calcium channel branden for radial artery spasm as tolerated dependent on BP 3. Continue amiodarone for afib prophylaxis. Will discontinue epicardial pacer wire, will start Eliquis for anticoagulation 4. Wean O2 as tolerated. Bronchodilators per pulmonology Encourage incentive spirometry 10 times every hour while awake 5. Increase activity, ambulate as tolerated. PT/OT/cardiac rehab following 6. Will monitor daily labs and x-rays. Electrolyte replacement per protocol. 7. Pain control with current medication regimen 8. Insulin management per primary care service. Hemoglobin A1c preoperatively 5.2% 9. Will DC left pleural chest tube 10. DC arterial line 11. Urology consulted for retention. Continue Flomax. Dulcolax suppository ordered as patient hasn't had BM since surgery 12. Discharge planning in progress. Anticipate DC to home with home care in the next 24-48 hours 13. More recommendations to follow based on patient's progress Time with Patient: Greater than 30
--- NOTE | 2020-04-17 07:28 | XR ---
EXAMINATION TYPE: XR chest 1V portable DATE OF EXAM: 04/17/2020 CLINICAL HISTORY: Difficulty breathing progress study. Postopen cardiac surgery. TECHNIQUE: Single AP portable upright view of the chest is obtained. COMPARISON: Chest x-ray from one day earlier and older studies. FINDINGS: Overlying sternal wires and mediastinal clips along with left atrial appendage clip are al l redemonstrated. Overlying EKG leads again seen. Interval removal of right internal jugular cordis s leonard. Persistent low lung volumes and cardiomegaly with atherosclerotic thoracic aorta. Persistent small to tiny left greater than right pleural effusions and bibasilar acute atelectasis and/or infiltrate. Up per lungs remain clear without pneumothorax. Degenerative change bilateral glenohumeral joints redemo nstrated. IMPRESSION: Cardiomegaly and chronic parenchymal changes with small left greater than right pleural effusions and left greater than right bibasilar acute atelectasis and/or infiltrate are redemonstrate d. No significant change from one day earlier.
[2020-04-17] MEDS: SODIUM CHLORIDE 0.9% 1,000 ML IV SCH (07:57)
[2020-04-17] MEDS: INSULIN ASPART (NovoLOG) 100 UNIT/ML VIAL SQ SCH ×4 (07:57→20:45)
[2020-04-17] MEDS: IPRATROPIUM-ALBUTEROL 3 ML NEB INHALATION SCH ×4 (08:18→19:31)
[2020-04-17] MEDS ORDERED: FUROSEMIDE 10 MG/ML 2 ML VIAL IV ONE (08:35)
[2020-04-17] MEDS: TAMSULOSIN 0.4 MG CAP.ER.24H PO SCH ×2 (09:04→20:43)
[2020-04-17] MEDS: ASPIRIN 81 MG PO SCH (09:04)
[2020-04-17] MEDS: ATORVASTATIN 40 MG TAB PO SCH (09:04)
[2020-04-17] MEDS: MULTIVITAMINS, THERA 1 EACH TAB PO SCH (09:04)
[2020-04-17] MEDS: AMIODARONE 200 MG TAB PO SCH ×2 (09:05→20:43)
[2020-04-17] MEDS: METOPROLOL TARTRATE 25 MG TAB PO SCH ×2 (09:05→20:44)
[2020-04-17] MEDS: APIXABAN 5 MG TAB PO SCH ×2 (09:05→20:42)
[2020-04-17 11:46] LABS: Glucose,Whole Blood 112 mg/dL (75-99)
[2020-04-17] MEDS: amLODIPine 2.5 MG TAB PO SCH (11:46)
[2020-04-17 12:09] LABS: % Iron Saturation 13.92 (15.00-50.00); Iron 27 ug/dL (65-175); Total Iron Binding Capacity 194 ug/dL (228-460)
--- NOTE | 2020-04-17 12:15 | PN ---
PROGRESS NOTE Mr. Pereyra is a 79-year-old male, status post coronary artery bypass grafting performed by Dr. Olivo. His surgery was done on 04/13 and at that time had a KEANE to LAD, left radial to the obtuse marginal branch, saphenous vein graft to the diagonal branch, and saphenous vein graft to the right coronary artery. He is sitting up in the chair. He is feeling well. He denies any symptoms of chest pain. He is in atrial fibrillation- flutter with a controlled ventricular response. He still has his pacer wires. He is hemodynamically stable otherwise. He has no evidence of ventricle and tachycardia. He continues to be at this time on amiodarone 400 mg twice a day, amlodipine 2.5 mg daily, aspirin once a day, Lipitor 40 mg daily, Plavix 75 mg daily, metoprolol tartrate 25 mg twice a day. PHYSICAL EXAMINATION: Blood pressure 110/50 with a heart rate in 90s. LUNGS: With mild decrease breath sounds at the bases, no wheezes. HEART: Irregular, regular, S1, S2. No S3 with systolic murmur, no diastolic murmur, no rub. ABDOMEN: Soft, nontender. EXTREMITIES: No significant edema. LAB DATA: Revealed BUN and creatinine 14 and 0.86, potassium 4.5 hemoglobin 7.9. IMPRESSION: 1. Status post coronary artery bypass grafting. 2. Postoperative atrial fibrillation, rate controlled. 3. History of hypertension. 4. History of hyperlipidemia. RECOMMENDATION: From the cardiac standpoint, will continue present therapy. Patient will need his wire removed and then initiate anticoagulation in view of his atrial fibrillation. Depending on his progress, further recommendation will be made. MMODL / IJN: [id number] /
--- NOTE | 2020-04-17 12:49 | P.PN ---
Subjective Progress Note Date: 04/17/20 - History of Present Illness 79-year-old male one of my office patient with long-standing history of CAD post [place] with history of PCI and stent placement of the right coronary artery disease over 10 years ago who is known to have history of hypertension hyperlipidemia and previous history of tobacco dependency patient has been doing natural management for many years has become slightly bit symptomatic lately with significant shortness of breath and decrease endurance when attempted to walk and ambulate was seen Dr. FRANK patel and end up going for stress test showed moderate area of infarct ischemic change patient ended up going for heart cath on 03/09/2020 finding was consistent with 80 percentile blockage of the LAD, 70% blockage in the mid LAD, 90% blockage of the circumflex and 95% blockage of the RCA. Patient was seen cardiothoracic surgeon and plan for bypass surgery with surgery scheduled for today ended up having 4 vessel bypass surgery and was sent to the ICU on mechanical ventilation. Patient otherwise hemodynamically stable has 2 mediastinal and left pleural tube in place has been draining some. 04/14: Patient is seen today in the intensive care unit. Patient is in the recliner and appears to be comfortable. He was successfully extubated last evening. He is status post one unit of packed RBCs this morning. Patient has been afebrile, heart rate 84, blood pressure 113/43, pulse ox 99% on 2 L nasal cannula. Blood sugars are running between 110 and 130. He has been on insulin drip at 2 units currently on hold for blood sugar 110. Repeat blood work revealed WBC 11.7, hemoglobin 7.8. Sodium 138, potassium 5.0, chloride 109, CO2 25, BUN 23 and creatinine 0.79. 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 04/15: Patient remains in ICU, he is comfortable without any shortness of breath, he has minimal amount of edema however he mentions this is much better, patient has left-sided rib pain, still has one Cordis left main the left side. Patient is receiving 1 unit of packed red blood cells earlier today, total of [address] surgery and 1 unit pre-surgery hemoglobin at 6.9, WBC count of 12.6, potassium 4.9 creatinine 0.93. Blood sugars ranging 104-138 albumin is low at 2.8 , on oral iron 325 mg twice a day, Plavix aspirin Lopressor and insulin scale. Daughter is at bedside, questions were answered, no lightheadedness or dizziness identified today, Grimm catheter is in place, attempt to discontinue it this evening 04/17: Patient remains in the intensive care unit. Pacemaker wire was removed this morning. Chest tube is to come out later today. Patient required replacement of Grimm catheter due to urinary retention and urology consult was added. We will increase Flomax to twice daily. Patient is been started on eliquis as well as amiodarone oral. He is reaching 750 ML's on incentive spirometry. Discharge plan is expected tomorrow. Patient will be either going home or to inpatient rehab. Consult with Dr. Steward is in place. Patient has been afebrile, heart rate 89, blood pressure 100/60, pulse ox 97% on room air. Blood work reveals hemoglobin 7.9. BUN 40 creatinine 0.86. Review of systems CONSTITUTIONAL: Denies fever, denies chills. EYES: No icterus sclerae, no conjunctivitis. EARS, NOSE, MOUTH, THROAT, and FACE: No sore throat, lymphadenopathy, carotid bruits or deformity. RESPIRATORY: Denies shortness of breath, denies cough, denies wheezing. CARDIOVASCULAR: 4 vessel CABG with incision looks fine. Postop surgical pain. GASTROINTESTINAL: No Abd pain, Nausea or vomiting, no Diarrhea or constipation, No GI Bleed, no distention or masses. GENITOURINARY: Negative for Hematuria or UTI, no kidney stones. INTEGUMENT/BREAST: Negative for any muscular injury with mild osteoarthritis.. HEMATOLOGIC/LYMPHATIC: Negative for bleed or purpura. MUSCULOSKELTAL: Negative for Myalgia or arthralgia. NEURLOGICAL: Sedated on mechanical ventilation is still awaking for pain stimuli. BEHAVIORAL/PSYCH: Negative. ENDOCRINE: Negative. Blood sugars controlled Physical examination General Appearance: This is a 79-year-old male. He is sitting up in a recliner and appears to be comfortable.. Neck HEENT: Supple, no lymphadenopathy, no thyroid enlargement, no carotid bruits. Lungs: Decreased breath sound, no wheezes, no rhonchi. Chest Wall: Incision on the chest wall looks fine with no sign of bleeding. Heart: Regular rate and rhythm, S1, S2 normal, no murmur, rub or gallop. Back: Symmetric, no curvature, ROM normal, no CVA tenderness. Abdomen: Soft, non-tender, bowel sounds present, no masses, no organomegaly. Grimm catheter draining clear jm urine. Extremities: Trace edema and decreased pulses bilaterally. Pulses: 2+ and symmetric. Skin: Skin color, texture, tugor normal, no rashes or lesions. Neurologic: Patient is awake alert and oriented 3. No focal neural deficits. Assessment and plan 1 post triple vessel coronary disease post 4 vessel coronary artery bypass gra fting with KEANE to the LAD, left radial arterial graft to the OM, SVG to the PDA, SVG to the diagonal with left radial artery harvest along with left lower extremity endoscopy Vein harvest. 2 post surgical respiratory failure on mechanical ventilation been managed by pulmonary critical care. Patient has been successfully extubated. 3 hypertension. Continue amiodarone, Lopressor. 4 hyperlipidemia: Was on atorvastatin 80 mg daily resume medication. 5 BPH with urinary retention requiring Grimm catheter placement. Increase Flomax to twice daily. Urology consult. 6 history of osteoarthritis post right total knee arthroplasty. 7 hyperglycemia. NovoLog scale. 8 mild anemia: Post surgery most likely from surgical blood loss was start patient on iron supplement along with multivitamins. 9 mild reactive airway: Was started on DuoNeb by pulmonary continue bronchodilator along with O2 for now. 10 postop atrial flutter. Oral amiodarone and eliquis. 11 DVT prophylaxis: Eliquis. 12 GI prophylaxis: Pantoprazole IV. CODE STATUS: Full code. Discharge plan: Home tomorrow or inpatient rehab at [facility]. Consult with Dr. Guillermo. Impression and plan of care have been directed as dictated by the signing physician. Alisson Penny nurse practitioner acting as scribe for signing physician. Objective - Vital Signs Vital signs: Vital Signs Temp 98 F 04/17/20 04:00 Pulse 94 04/17/20 07:00 Resp 13 04/17/20 07:00 BP 100/68 04/16/20 21:00 Pulse Ox 95 04/17/20 07:00 Intake & Output 04/16/20 04/17/20 04/17/20 18:59 06:59 18:59 Intake Total 848 506 46 Output Total 1310 1400 50 Balance -462 -894 -4 Weight 88.4 kg Intake: IV 338 256 46 Pressure Bags 78 36 6 Sodium Chloride 0.9% 1, 260 220 40 000 ml @ 20 mls/hr IV . Q24H [facility] Rx#:[id number] Intake, IV Titration 200 250 Amount Amiodarone 300 mg In 250 Dextrose 5% in Water 250 ml @ 0.5 MG/MIN 25 mls/hr IV .Q10H PRN Rx#: [id number] Amiodarone 360 mg In 200 Dextrose 5% in Water 200 ml @ 1 MG/MIN 33.333 mls/ hr IV .Q6H PRN Rx#: [id number] Blood Product 310 Rc As-1 Unit 310 [id number] Output: Chest Tube Drainage 160 100 Left 160 100 Urine 1150 1300 50 Other: Voiding Method Urinal Urinal ABP, PAP, CO, CI - Last Documented Arterial Blood Pressure 110/46 Pulmonary Artery Pressure 28/7 Cardiac Output 6.1 Cardiac Index 3.1 - Labs CBC & Chem 7: 04/17/20 04:50 04/17/20 04:50 Labs: Abnormal Lab Results - Last 24 Hours (Table) 04/10/20 04/16/20 04/16/20 Range/Units 10:06 06:50 11:43 RBC (4.30-5.90) m/uL Hgb (13.0-17.5) gm/dL Hct (39.0-53.0) % RDW (11.5-15.5) % Retic Count (0.5-2.0) % Sodium (137-145) mmol/L BUN (9-20) mg/dL Glucose (74-99) mg/dL POC Glucose (mg/dL) 150 H (75-99) mg/dL Calcium (8.4-10.2) mg/dL Total Protein (6.3-8.2) g/dL Albumin (3.5-5.0) g/dL Crossmatch See Detail See Detail 04/16/20 04/16/20 04/16/20 Range/Units 16:10 16:58 21:00 RBC (4.30-5.90) m/uL Hgb (13.0-17.5) gm/dL Hct (39.0-53.0) % RDW (11.5-15.5) % Retic Count (0.5-2.0) % Sodium (137-145) mmol/L BUN (9-20) mg/dL Glucose (74-99) mg/dL POC Glucose (mg/dL) 152 H 135 H 144 H (75-99) mg/dL Calcium (8.4-10.2) mg/dL Total Protein (6.3-8.2) g/dL Albumin (3.5-5.0) g/dL Crossmatch 04/17/20 04/17/20 04/17/20 Range/Units 04:50 04:50 07:06 RBC 2.39 L (4.30-5.90) m/uL Hgb 7.9 L (13.0-17.5) gm/dL Hct 23.6 L (39.0-53.0) % RDW 19.6 H (11.5-15.5) % Retic Count 2.2 H (0.5-2.0) % Sodium 135 L (137-145) mmol/L BUN 40 H (9-20) mg/dL Glucose 106 H (74-99) mg/dL POC Glucose (mg/dL) 114 H (75-99) mg/dL Calcium 7.6 L (8.4-10.2) mg/dL Total Protein 4.3 L (6.3-8.2) g/dL Albumin 2.6 L (3.5-5.0) g/dL Crossmatch
[2020-04-17 13:23] VITALS: BMI 30.5
--- NOTE | 2020-04-17 15:00 | P.PN ---
Subjective Progress Note Date: 04/17/20 Principal diagnosis: Status post quadruple coronary artery bypass, postoperative day #4 04/16/2020, the patient is postop day #3. He is currently on oxygen at 2 by nasal cannula. He was recovering nicely and he was doing well until this morning when he developed an atrial fibrillation with rapid ventricular response. Currently is on amiodarone loading at 1 mg an hour. He did not have any significant hemodynamic instability or hypotension. He remains on normal state rate of 20 mL an hour. Hemoglobin done at 6.8 and the patient is going to receive a unit of packed RBC. He is pulling approximately 1500 on the incentive spirometer. The medius chest tubes have been removed. Left-sided chest tube is still in place. Output has been noted. Output will be monitored. Tolerating diet. No nausea vomiting, chest pain. No other significant events overnight. On 04/17/2020, patient was evaluated, remains in the intensive care unit, he is postoperative day #4, on room air, O2 saturations 96%. He is in atrial fibrillation/flutter 75 bpm, patient denies any shortness of breath cough or wheezing, however he seems to be generally weak, and may require rehabilitation placement. Patient received a unit of packed RBCs for low hemoglobin of 6.7 yesterday, and his hemoglobin is 7.9 today. Still having issues with voiding and emptying his bladder fully. Had to be straight cathed 2. Patient seems to be generally weak, but able to ambulate short distances. Objective - Vital Signs Vital signs: Vital Signs Temp 98.3 F 04/17/20 12:00 Pulse 76 04/17/20 14:00 Resp 15 04/17/20 14:00 BP 85/49 04/17/20 14:00 Pulse Ox 94 L 04/17/20 14:00 Intake & Output 04/16/20 04/17/20 04/17/20 18:59 06:59 18:59 Intake Total 848 506 46 Output Total 1310 1400 415 Balance -462 -894 -964 Weight 88.4 kg 88.4 kg Intake: IV 338 256 46 Pressure Bags 78 36 6 Sodium Chloride 0.9% 1, 260 220 40 000 ml @ 20 mls/hr IV . Q24H [facility] Rx#:[id number] Intake, IV Titration 200 250 Amount Amiodarone 300 mg In 250 Dextrose 5% in Water 250 ml @ 0.5 MG/MIN 25 mls/hr IV .Q10H PRN Rx#: [id number] Amiodarone 360 mg In 200 Dextrose 5% in Water 200 ml @ 1 MG/MIN 33.333 mls/ hr IV .Q6H PRN Rx#: [id number] Blood Product 310 Rc As-1 Unit 310 [id number] Output: Chest Tube Drainage 160 100 Left 160 100 Urine 1150 1300 415 Other: Voiding Method Urinal Urinal Indwelling Catheter ABP, PAP, CO, CI - Last Documented Arterial Blood Pressure 105/47 Pulmonary Artery Pressure 28/7 Cardiac Output 6.1 Cardiac Index 3.1 - Exam Physical Exam: Revealed a 79-year-old white male, in no distress, on room air. Head: Atraumatic, normocephalic. HEENT:[Neck is supple.] [No neck masses.] [No thyromegaly.] [No JVD.] Chest: [Diminished breath sounds at the bases no crackles or rhonchi or wheezes. Cardiac Exam: [Normal S1 and S2, no S3 gallop, no murmur.] Abdomen: [Soft, nontender, no megaly, no rebound, no guarding, normal bowel sounds.] Extremities: [No clubbing, no edema, no cyanosis.] Neurological Exam: [No focal neurologic deficit.] Psychiatric: Normal mood, affect and normal mental status examination. - Labs CBC & Chem 7: 04/17/20 04:50 04/17/20 04:50 Labs: Abnormal Lab Results - Last 24 Hours (Table) 04/16/20 04/16/20 04/16/20 Range/Units 06:50 16:10 16:58 RBC (4.30-5.90) m/uL Hgb (13.0-17.5) gm/dL Hct (39.0-53.0) % RDW (11.5-15.5) % Retic Count (0.5-2.0) % Sodium (137-145) mmol/L BUN (9-20) mg/dL Glucose (74-99) mg/dL POC Glucose (mg/dL) 152 H 135 H (75-99) mg/dL Calcium (8.4-10.2) mg/dL Iron (65-175) ug/dL TIBC (228-460) ug/dL % Saturation (15.00-50.00) Total Protein (6.3-8.2) g/dL Albumin (3.5-5.0) g/dL Crossmatch See Detail 04/16/20 04/17/20 04/17/20 Range/Units 21:00 04:50 04:50 RBC 2.39 L (4.30-5.90) m/uL Hgb 7.9 L (13.0-17.5) gm/dL Hct 23.6 L (39.0-53.0) % RDW 19.6 H (11.5-15.5) % Retic Count 2.2 H (0.5-2.0) % Sodium 135 L (137-145) mmol/L BUN 40 H (9-20) mg/dL Glucose 106 H (74-99) mg/dL POC Glucose (mg/dL) 144 H (75-99) mg/dL Calcium 7.6 L (8.4-10.2) mg/dL Iron 27 L (65-175) ug/dL TIBC 194 L (228-460) ug/dL % Saturation 13.92 L (15.00-50.00) Total Protein 4.3 L (6.3-8.2) g/dL Albumin 2.6 L (3.5-5.0) g/dL Crossmatch 04/17/20 04/17/20 Range/Units 07:06 11:44 RBC (4.30-5.90) m/uL Hgb (13.0-17.5) gm/dL Hct (39.0-53.0) % RDW (11.5-15.5) % Retic Count (0.5-2.0) % Sodium (137-145) mmol/L BUN (9-20) mg/dL Glucose (74-99) mg/dL POC Glucose (mg/dL) 114 H 112 H (75-99) mg/dL Calcium (8.4-10.2) mg/dL Iron (65-175) ug/dL TIBC (228-460) ug/dL % Saturation (15.00-50.00) Total Protein (6.3-8.2) g/dL Albumin (3.5-5.0) g/dL Crossmatch Assessment and Plan Assessment: Impression: Status post four-vessel CABG postoperative day #4. Coronary artery disease and previous PCI and stenting of the RCA. History of inferior wall RI in 2001. Hypertension. Dyslipidemia. Postoperative anemia, expected requiring blood transfusion. Recommendation: Continue aspirin, beta blockers Plavix and statin. Continue amiodarone. Anticoagulation therapy. Continue bronchodilators. Continue incentive spirometry, patient is achieving 1200 mL so far. Continue pain control. Monitor daily labs and x-rays. Discontinue left-sided chest tube and unnecessary catheters. Urology being consulted for urinary retention. Patient is on Flomax. Discharge planning to rehab possibly is in progress Time with Patient: Less than 30
--- NOTE | 2020-04-17 15:25 | P.CONS ---
History of Present Illness - Chief Complaint Cardiac debility - History of Present Illness I had the opportunity to see patient for inpatient rehab consultation with regard to cardiac debility. He was admitted to [facility] April 13 with known cardiac disease. Underwent 4 vessel coronary bypass, Dr. Olivo. Seen in consultation by PMD Dr. Mccurdy as well as pulmonary and cardiology. Chest x-rays followed for cardiomegaly, effusions and right base atelectasis versus infiltrate. PT reports minimal assistance for transfers and gait 76 feet. OT reports minimal assistance for upper and lower dressing and bathing, toileting and basic self-care transfers. Previous functional history as elicited from patient: 79-year-old right-handed white male who is single lives and 2 floor home with oldest son, yun. 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 Patient indeed independent with cooking, laundry, driving, standing shower and gait without device. PMD Dr. Mccurdy. Denies tobacco or alcohol. Family history both parents with cancer. Review of Systems Review of systems: ENT: Denies sneezes or discharge. Eyes: Denies discharge or photophobia. Cardiac: Mild sternal discomfort. Pulmonary: At least mild shortness of breath. Gastrointestinal: Denies nausea, emesis, constipation, diarrhea. Genitourinary: Denies discharge or frequency. Musculoskeletal: Denies muscle or bone aches. Neurologic: Gen. weakness. Endocrine: Denies shakes or sweats. Oncology: Denies cancers. Dermatologic: Denies rash, itching, pruritus. ALLERGY/immunology: Denies sneezes, rashes. Past Medical History Past Medical History: Coronary Artery Disease (CAD), Hyperlipidemia, Hypertension, Myocardial Infarction ([place]), Osteoarthritis (OA) Additional Past Medical History / Comment(s): fatigues easily Last Myocardial Infarction Date:: 2001 History of Any Multi-Drug Resistant Organisms: None Reported Past Surgical History: Heart Catheterization With Stent, Hernia Repair, Joint Replacement, Tonsillectomy Additional Past Surgical History / Comment(s): Precancerous skin lesion removed, right knee replacement, cyst removed, bilateral cataracts removed. Bare-metal stent placed to the RCA in February 2002 Past Anesthesia/Blood Transfusion Reactions: No Reported Reaction Date of Last Stent Placement:: 2001 Smoking Status: Former smoker Medications and Allergies Home Medications Medication Instructions Recorded Confirmed Type Antioxident 1 tab PO DAILY 03/06/20 04/13/20 History Multivitamins, Thera [Multivitamin 2 tab PO DAILY 03/06/20 04/13/20 History (formulary)] Tamsulosin [Flomax] 0.4 mg PO DAILY 03/06/20 04/13/20 History Aspirin 81 mg PO DAILY 03/31/20 04/13/20 History Atorvastatin [Lipitor] 80 mg PO DAILY 03/31/20 04/13/20 History Metoprolol Tartrate [Lopressor] 12.5 mg PO DAILY 03/31/20 04/13/20 History Mupirocin 2% Oint [Bactroban 2% 1 applic NASAL BID #1 tube 03/31/20 04/13/20 Rx Oint] Aspirin 364 mg PO ONCE 04/13/20 04/13/20 History Allergies Allergy/AdvReac Type Severity Reaction Status Date / Time codeine Allergy Headache/brain Verified 04/13/20 05:47 swelling Physical Exam Vitals: Vital Signs Temp Pulse Resp BP Pulse Ox 04/17/20 15:00 80 14 90/57 92 L 04/17/20 14:00 76 15 85/49 94 L 04/17/20 13:00 83 18 80/51 90 L 04/17/20 12:00 98.3 F 125 H 22 109/76 94 L 04/17/20 11:00 73 18 109/76 91 L 04/17/20 10:00 82 14 109/76 93 L 04/17/20 09:44 95 04/17/20 09:00 89 26 H 100/68 97 04/17/20 08:00 98.3 F 87 15 91 L 04/17/20 07:00 94 13 95 04/17/20 06:00 90 20 95 04/17/20 05:00 82 16 95 04/17/20 04:00 98 F 86 13 95 04/17/20 03:00 65 19 96 04/17/20 02:00 82 13 97 04/17/20 01:00 92 18 97 04/17/20 00:00 97.9 F 63 14 97 04/16/20 23:00 87 15 98 04/16/20 22:05 89 11 L 97 04/16/20 22:00 85 12 97 04/16/20 21:00 87 18 100/68 95 04/16/20 20:35 78 08/09/20 20:25 71 04/16/20 20:00 98 F 87 25 H 100/74 98 04/16/20 19:00 72 18 102/79 98 04/16/20 18:00 92 15 107/74 98 04/16/20 17:00 85 15 97 04/16/20 16:00 98.0 F 76 16 103/77 97 04/16/20 15:29 80 Intake and Output 04/17/20 04/17/20 04/17/20 06:59 14:59 22:59 Intake Total 184 46 Output Total 1390 415 Balance -3608 -171 Intake: IV 184 46 Pressure Bags 24 6 Sodium Chloride 0.9% 1, 160 40 000 ml @ 20 mls/hr IV . Q24H [facility] Rx#:[id number] Output: Chest Tube Drainage 90 Left 90 Urine 1300 415 Other: Voiding Method Urinal Indwelling Catheter Weight 88.4 kg 88.4 kg ABP, PAP, CO, CI - Last 8 Hours Arterial Blood Pressure 105/47 Skin: Atrophic, intact. General: Overweight build and comfortable appearance. Head: Normocephalic, atraumatic. Eyes: Symmetric. Pupils equal round. Ears: Symmetric. Hearing within normal limits. Mouth: Clear. Neck: Supple. Carotid without bruit. Cardiac: Regular rate and rhythm. Lungs: Clear anteriorly and posteriorly. Abdomen: Soft active nontender. Extremities: Normal tone. Neurological: Mental status: Alert, cooperative, pleasant. Cranial nerves: Symmetric facial tone and trapezius. Motor: Can actively elevate all 4 limbs. Sensation: Intact throughout. DTRs: Symmetric and equal throughout. Mobility: Patient reports required at least to nurse assist for transfer from bed to Therese chair. Results CBC & Chem 7: 04/17/20 04:50 04/17/20 04:50 Labs: Abnormal Lab Results - Last 24 Hours (Table) 04/16/20 04/16/20 04/16/20 Range/Units 06:50 16:10 16:58 RBC (4.30-5.90) m/uL Hgb (13.0-17.5) gm/dL Hct (39.0-53.0) % RDW (11.5-15.5) % Retic Count (0.5-2.0) % Sodium (137-145) mmol/L BUN (9-20) mg/dL Glucose (74-99) mg/dL POC Glucose (mg/dL) 152 H 135 H (75-99) mg/dL Calcium (8.4-10.2) mg/dL Iron (65-175) ug/dL TIBC (228-460) ug/dL % Saturation (15.00-50.00) Total Protein (6.3-8.2) g/dL Albumin (3.5-5.0) g/dL Crossmatch See Detail 04/16/20 04/17/20 04/17/20 Range/Units 21:00 04:50 04:50 RBC 2.39 L (4.30-5.90) m/uL Hgb 7.9 L (13.0-17.5) gm/dL Hct 23.6 L (39.0-53.0) % RDW 19.6 H (11.5-15.5) % Retic Count 2.2 H (0.5-2.0) % Sodium 135 L (137-145) mmol/L BUN 40 H (9-20) mg/dL Glucose 106 H (74-99) mg/dL POC Glucose (mg/dL) 144 H (75-99) mg/dL Calcium 7.6 L (8.4-10.2) mg/dL Iron 27 L (65-175) ug/dL TIBC 194 L (228-460) ug/dL % Saturation 13.92 L (15.00-50.00) Total Protein 4.3 L (6.3-8.2) g/dL Albumin 2.6 L (3.5-5.0) g/dL Crossmatch 04/17/20 04/17/20 Range/Units 07:06 11:44 RBC (4.30-5.90) m/uL Hgb (13.0-17.5) gm/dL Hct (39.0-53.0) % RDW (11.5-15.5) % Retic Count (0.5-2.0) % Sodium (137-145) mmol/L BUN (9-20) mg/dL Glucose (74-99) mg/dL POC Glucose (mg/dL) 114 H 112 H (75-99) mg/dL Calcium (8.4-10.2) mg/dL Iron (65-175) ug/dL TIBC (228-460) ug/dL % Saturation (15.00-50.00) Total Protein (6.3-8.2) g/dL Albumin (3.5-5.0) g/dL Crossmatch Assessment and Plan Plan: Impression: 1. Cardiac debility with coronary artery disease and history of [place] now with recent 4 vessel coronary bypass. 2. Hypertension. 3. Dyslipidemia. 4. Osteoarthritis. Comments and plan: At this time PT and OT are ongoing. Safety concerns noted. In fact patient feels need for ongoing therapy. Discussed possible inpatient rehab and he is of course agreeable.
[2020-04-17 16:35] LABS: Glucose,Whole Blood 131 mg/dL (75-99)
[2020-04-17 20:27] LABS: Glucose,Whole Blood 123 mg/dL (75-99)
[2020-04-17] MEDS: SENNOSIDES-DOCUSATE SODIUM 1 EACH TAB PO SCH (20:40)
--- NOTE | 2020-04-17 21:02 | P.GSCN ---
History of Present Illness Consult date: 04/17/20 Reason for Consult: Postoperative urinary retention History of present illness: The patient is a 79-year-old male with coronary artery disease who underwent CABG on 04/13/2020. A Grimm catheter was placed at the time of the surgery and was removed on 04/15. He was unable to void and was in and out cath'd initially for 1000 cc and then again for 640 cc. The Grimm catheter was replaced. The patient had been taking tamsulosin 0.4 mg daily prior to his surgery. The tamsulosin was continued following the surgery and the dose was increased to 0.4 mg twice a day this morning. I was asked to see the patient due to his urinary retention. The patient says that he had a similar episode of urinary retention 6 years ago following right knee surgery. He thinks that he may have been started on tamsulosin at that time. He says he usually voids every 2-3 hours during the day and 2-3 times at night. He rates his flow as a 4 out of 10. He usually feels he voids completely. He has had some urgency but denies any urge incontinence. He has no history of urinary tract infection or gross hematuria. He says he normally has no problems with constipation but has had no bowel movement since his CABG. Review of Systems - Cardiovascular Reports edema - Gastrointestinal Denies abdominal pain - Genitourinary Reports as per HPI Past Medical History Past Medical History: Coronary Artery Disease (CAD), Hyperlipidemia, Hypertension, Myocardial Infarction (MA), Osteoarthritis (OA) Additional Past Medical History / Comment(s): fatigues easily Last Myocardial Infarction Date:: 2001 History of Any Multi-Drug Resistant Organisms: None Reported Past Surgical History: Heart Catheterization With Stent, Hernia Repair (left inguinal ernia), Joint Replacement (Right knee), Tonsillectomy Additional Past Surgical History / Comment(s): Precancerous skin lesion removed, right knee replacement, cyst removed, bilateral cataracts removed. Bare-metal stent placed to the RCA in February 2002 Past Anesthesia/Blood Transfusion Reactions: No Reported Reaction Date of Last Stent Placement:: 2001 Smoking Status: Former smoker Medications and Allergies Home Medications Medication Instructions Recorded Confirmed Type Antioxident 1 tab PO DAILY 03/06/20 04/13/20 History Multivitamins, Thera [Multivitamin 2 tab PO DAILY 03/06/20 04/13/20 History (formulary)] Tamsulosin [Flomax] 0.4 mg PO DAILY 03/06/20 04/13/20 History Aspirin 81 mg PO DAILY 03/31/20 04/13/20 History Atorvastatin [Lipitor] 80 mg PO DAILY 03/31/20 04/13/20 History Metoprolol Tartrate [Lopressor] 12.5 mg PO DAILY 03/31/20 04/13/20 History Mupirocin 2% Oint [Bactroban 2% 1 applic NASAL BID #1 tube 03/31/20 04/13/20 Rx Oint] Aspirin 364 mg PO ONCE 04/13/20 04/13/20 History Allergies Allergy/AdvReac Type Severity Reaction Status Date / Time codeine Allergy Headache/brain Verified 04/13/20 05:47 swelling Surgical - Exam Vital Signs Temp Pulse Resp BP Pulse Ox 97.8 F 62 16 124/63 95 04/13/20 06:00 04/13/20 06:00 04/13/20 06:00 04/13/20 06:00 04/13/20 06:00 - General well developed, well nourished, no distress - Neck no masses, no lymphadectomy - Respiratory normal respiratory effort - Abdomen Abdomen: soft, non tender, no organomegaly Hernia: none - Genitourinary normal penis with no external lesions, testicles non-tender, other (Mild penile and scrotal edema. Grimm catheter in place and draining clear urine.) Results - Labs 04/17/20 04:50 04/17/20 04:50 Abnormal Lab Results - Last 24 Hours (Table) 04/16/20 04/17/20 04/17/20 Range/Units 21:00 04:50 04:50 RBC 2.39 L (4.30-5.90) m/uL Hgb 7.9 L (13.0-17.5) gm/dL Hct 23.6 L (39.0-53.0) % RDW 19.6 H (11.5-15.5) % Retic Count 2.2 H (0.5-2.0) % Sodium 135 L (137-145) mmol/L BUN 40 H (9-20) mg/dL Glucose 106 H (74-99) mg/dL POC Glucose (mg/dL) 144 H (75-99) mg/dL Calcium 7.6 L (8.4-10.2) mg/dL Iron 27 L (65-175) ug/dL TIBC 194 L (228-460) ug/dL % Saturation 13.92 L (15.00-50.00) Total Protein 4.3 L (6.3-8.2) g/dL Albumin 2.6 L (3.5-5.0) g/dL 04/17/20 04/17/20 04/17/20 Range/Units 07:06 11:44 16:33 RBC (4.30-5.90) m/uL Hgb (13.0-17.5) gm/dL Hct (39.0-53.0) % RDW (11.5-15.5) % Retic Count (0.5-2.0) % Sodium (137-145) mmol/L BUN (9-20) mg/dL Glucose (74-99) mg/dL POC Glucose (mg/dL) 114 H 112 H 131 H (75-99) mg/dL Calcium (8.4-10.2) mg/dL Iron (65-175) ug/dL TIBC (228-460) ug/dL % Saturation (15.00-50.00) Total Protein (6.3-8.2) g/dL Albumin (3.5-5.0) g/dL 04/17/20 Range/Units 20:26 RBC (4.30-5.90) m/uL Hgb (13.0-17.5) gm/dL Hct (39.0-53.0) % RDW (11.5-15.5) % Retic Count (0.5-2.0) % Sodium (137-145) mmol/L BUN (9-20) mg/dL Glucose (74-99) mg/dL POC Glucose (mg/dL) 123 H (75-99) mg/dL Calcium (8.4-10.2) mg/dL Iron (65-175) ug/dL TIBC (228-460) ug/dL % Saturation (15.00-50.00) Total Protein (6.3-8.2) g/dL Albumin (3.5-5.0) g/dL Diabetes panel 04/17/20 Range/Units 04:50 Sodium 135 L (137-145) mmol/L Potassium 4.5 (3.5-5.1) mmol/L Chloride 104 (98-107) mmol/L Carbon Dioxide 24 (22-30) mmol/L BUN 40 H (9-20) mg/dL Creatinine 0.86 (0.66-1.25) mg/dL Glucose 106 H (74-99) mg/dL Calcium 7.6 L (8.4-10.2) mg/dL AST 41 (17-59) U/L ALT 19 (4-49) U/L Alkaline Phosphatase 40 (38-126) U/L Total Protein 4.3 L (6.3-8.2) g/dL Albumin 2.6 L (3.5-5.0) g/dL Calcium panel 04/17/20 Range/Units 04:50 Calcium 7.6 L (8.4-10.2) mg/dL Albumin 2.6 L (3.5-5.0) g/dL Pituitary panel 04/17/20 Range/Units 04:50 Sodium 135 L (137-145) mmol/L Potassium 4.5 (3.5-5.1) mmol/L Chloride 104 (98-107) mmol/L Carbon Dioxide 24 (22-30) mmol/L BUN 40 H (9-20) mg/dL Creatinine 0.86 (0.66-1.25) mg/dL Glucose 106 H (74-99) mg/dL Calcium 7.6 L (8.4-10.2) mg/dL Adrenal panel 04/17/20 Range/Units 04:50 Sodium 135 L (137-145) mmol/L Potassium 4.5 (3.5-5.1) mmol/L Chloride 104 (98-107) mmol/L Carbon Dioxide 24 (22-30) mmol/L BUN 40 H (9-20) mg/dL Creatinine 0.86 (0.66-1.25) mg/dL Glucose 106 H (74-99) mg/dL Calcium 7.6 L (8.4-10.2) mg/dL Total Bilirubin 1.1 (0.2-1.3) mg/dL AST 41 (17-59) U/L ALT 19 (4-49) U/L Alkaline Phosphatase 40 (38-126) U/L Total Protein 4.3 L (6.3-8.2) g/dL Albumin 2.6 L (3.5-5.0) g/dL Assessment and Plan (1) Postoperative urinary retention Narrative/Plan: The patient had some symptoms of bladder outflow obstruction prior to his cardiac surgery but it sounds like they were fairly well controlled with tamsulosin. His postoperative urinary retention may have been related in part to some sedation following his surgery. Unfortunately he also had at least one episode of bladder overdistention to 1000 cc which may cause some temporary difficulty voiding. The patient believes that he may be transferred to a rehabilitation unit tomorrow afternoon. His catheter could be removed at 6 in the morning tomorrow and he could be followed closely with the bladder scan unit to ensure that he is voiding adequately. If he continues to have elevated postvoid residuals or is unable to void then he will need to have a longer per iod of catheter drainage prior to another voiding trial. Current Visit: Yes Status: Acute Code(s): N99.89 - OTH POSTPROCEDURAL COMPLICATIONS AND DISORDERS OF SYS; R33.8 - OTHER RETENTION OF URINE SNOMED Code(s): 386728236
[2020-04-18] MEDS: KETOROLAC 30 MG/ML 1 ML VIAL IVP SCH (03:13)
[2020-04-18 06:01] LABS: Anisocytosis Slight; HCT 25.4 % (39.0-53.0); HGB 8.2 gm/dL (13.0-17.5); Hypochromasia Slight; MCH 33.1 pg (25.0-35.0); MCHC 32.5 g/dL (31.0-37.0); MCV 101.9 fL (80.0-100.0); Macrocytosis Moderate; Mean Platelet Volume 9.9; Platelet Count 367 k/uL (150-450); RBC 2.49 m/uL (4.30-5.90); RDW 19.2 % (11.5-15.5); WBC 10.1 k/uL (3.8-10.6)
[2020-04-18 06:19] LABS: Potassium 4.6 mmol/L (3.5-5.1)
--- NOTE | 2020-04-18 07:18 | XR ---
EXAMINATION TYPE: XR chest 2V DATE OF EXAM: 04/18/2020 COMPARISON: 04/17/2020 TECHNIQUE: PA and lateral views submitted. HISTORY: Post cardiac surgery FINDINGS: Postoperative change and mild cardiomegaly. Bilateral consolidation and small effusion. Coarsened int erstitium. No pneumothorax. Arthropathy of the shoulders. IMPRESSION: 1. Bilateral infiltrate and pleural effusion correlate for mild CHF otherwise consider pneumonia
[2020-04-18] MEDS: IPRATROPIUM-ALBUTEROL 3 ML NEB INHALATION SCH ×4 (07:23→20:22)
[2020-04-18] MEDS: INSULIN ASPART (NovoLOG) 100 UNIT/ML VIAL SQ SCH ×4 (07:27→21:26)
[2020-04-18] MEDS: MULTIVITAMINS, THERA 1 EACH TAB PO SCH (08:00)
[2020-04-18] MEDS: TAMSULOSIN 0.4 MG CAP.ER.24H PO SCH ×2 (08:00→21:03)
[2020-04-18] MEDS: ATORVASTATIN 40 MG TAB PO SCH (08:00)
[2020-04-18] MEDS: ASPIRIN 81 MG PO SCH (08:00)
[2020-04-18] MEDS: APIXABAN 5 MG TAB PO SCH ×2 (08:00→21:04)
[2020-04-18] MEDS: ASCORBIC ACID 500 MG TAB PO SCH ×2 (08:00→16:44)
[2020-04-18] MEDS: AMIODARONE 200 MG TAB PO SCH ×2 (08:00→21:03)
[2020-04-18] MEDS: METOPROLOL TARTRATE 25 MG TAB PO SCH ×3 (08:01→21:29)
[2020-04-18] MEDS: MAGNESIUM HYDROXIDE 2,400 MG/10 ML CUP PO SCH ×2 (08:01→21:02)
[2020-04-18] MEDS: FERROUS SULFATE 325 MG TAB PO SCH ×2 (08:01→16:44)
--- NOTE | 2020-04-18 08:40 | P.PN ---
Subjective Progress Note Date: 04/18/20 Principal diagnosis: Triple-vessel coronary artery disease, mild to moderate left ventricular dysfunction with preoperative EF 40-45%, mild mitral valve regurgitation, moderately dilated ascending aorta around 4.2 cm. Previous history of coronary artery disease status post remote inferior wall myocardial infarction with RCA stent, hypertension, hyperlipidemia, previous tobacco dependence with FEV1 88% of predicted, remote history of pneumonia, BPH, and family history of premature coronary artery disease with mother having CABG at 60 years old. POD #5 quadruple coronary artery bypass grafting using the left internal mammary artery to the left anterior descending artery, left radial artery from the aorta to the obtuse marginal artery, reverse saphenous vein graft from the aorta to the diagonal artery, reverse saphenous vein graft from the aorta to the junction of the RCA to the posterior descending artery. Exclusion of the left atrial appendage using a 35 mm after clip. Endoscopic harvesting of the left radial artery. Endoscopic harvesting of the left greater saphenous vein from the groin to above the ankle level. Intraoperative transesophageal echocardiogram and epi-aortic scanning. Intraoperative graft flow measurements using the [employer] system. Postoperative acute blood loss anemia, expected given cardiopulmonary bypass pump, hemodilution, and patient's continued Plavix up until the day before surgery Postoperative atrial fibrillation, unexpected but common occurrence after open heart surgery Postoperative urinary retention, expected given history of BPH The patient is currently sitting up in the recliner in the intensive care unit in no acute distress. States pain is controlled on current medication regimen, denies shortness of breath. He did ambulate short distance in his room yesterday but felt like his left knee was giving out. Dr. Steward consulted for inpatient rehab. He remains in atrial flutter with controlled rate at rest, slightly tachycardic with activity. Patient seen by urology yesterday with orders to discontinue Grimm catheter this morning for trial void. Objective - Vital Signs Vital signs: Vital Signs Temp 98 F 04/18/20 08:00 Pulse 118 H 04/18/20 08:00 Resp 15 04/18/20 08:00 BP 102/57 04/18/20 08:00 Pulse Ox 95 04/18/20 08:00 Intake & Output 04/17/20 04/18/20 04/18/20 18:59 06:59 18:59 Intake Total 46 300 Output Total 540 575 0 Balance -494 -275 0 Weight 88.4 kg Intake: IV 46 Pressure Bags 6 Sodium Chloride 0.9% 1, 40 000 ml @ 20 mls/hr IV . Q24H [facility] Rx#:[id number] Oral 200 Tube Feeding 100 Output: Urine 540 575 0 Other: Voiding Method Indwelling Catheter Indwelling Catheter ABP, PAP, CO, CI - Last Documented Arterial Blood Pressure 105/47 Pulmonary Artery Pressure 28/7 Cardiac Output 6.1 Cardiac Index 3.1 - Constitutional General appearance: Present: cooperative, no acute distress - Respiratory Details: Lungs sounds diminished bilaterally. Respirations even, nonlabored. Currently on room air with oxygen saturation 96%. Able to achieve 1250 mL on incentive spirometry. Strong cough with productive minimal clear sputum. - Cardiovascular Details: S1, S2 present. Irregular rate and rhythm, atrial flutter on telemetry. Sternum stable. Palpable peripheral pulses bilaterally. No edema present. No calf pain or tenderness noted. Heart hugger in place with patient demonstrating appropriate use. SCDs, antiembolism stockings present. - Gastrointestinal Gastrointestinal Comment(s): Abdomen soft, nontender, nondistended. Active bowel sounds present 4 quadrants. Tolerating diet. Positive small bowel movement this morning - Genitourinary Genitourinary Comment(s): Grimm catheter discontinued this morning, patient due to void. Urine output overnight 40-50 mL per hour - Integumentary Integumentary Comment(s): Skin is warm and dry with evidence of good perfusion. Anterior chest incision well approximated and covered with dry intact dressing. Left lower extremity EVH site well approximated. Left radial artery harvest site well approximated, patient is able to wiggle fingers and 3d modeler appropriately. Good cap refill. - Neurologic Neurologic: Present: CNII-XII intact - Musculoskeletal Musculoskeletal: Present: generalized weakness, strength equal bilaterally - Psychiatric Psychiatric: Present: A&O x's 3, appropriate affect, intact judgment & insight - Allied health notes Allied health notes reviewed: nursing - Labs CBC & Chem 7: 04/18/20 05:38 04/18/20 05:38 Labs: Abnormal Lab Results - Last 24 Hours (Table) 04/17/20 04/17/20 04/17/20 Range/Units 04:50 11:44 16:33 RBC (4.30-5.90) m/uL Hgb (13.0-17.5) gm/dL Hct (39.0-53.0) % MCV (80.0-100.0) fL RDW (11.5-15.5) % Sodium (137-145) mmol/L BUN (9-20) mg/dL Glucose (74-99) mg/dL POC Glucose (mg/dL) 112 H 131 H (75-99) mg/dL Calcium (8.4-10.2) mg/dL Iron 27 L (65-175) ug/dL TIBC 194 L (228-460) ug/dL % Saturation 13.92 L (15.00-50.00) 04/17/20 04/18/20 04/18/20 Range/Units 20:26 05:38 05:38 RBC 2.49 L (4.30-5.90) m/uL Hgb 8.2 L (13.0-17.5) gm/dL Hct 25.4 L (39.0-53.0) % MCV 101.9 H (80.0-100.0) fL RDW 19.2 H (11.5-15.5) % Sodium 132 L (137-145) mmol/L BUN 41 H (9-20) mg/dL Glucose 103 H (74-99) mg/dL POC Glucose (mg/dL) 123 H (75-99) mg/dL Calcium 8.0 L (8.4-10.2) mg/dL Iron (65-175) ug/dL TIBC (228-460) ug/dL % Saturation (15.00-50.00) - Imaging and Cardiology Chest x-ray: report reviewed, image reviewed Assessment and Plan Assessment: 1. Triple-vessel coronary artery disease, status post four-vessel CABG 2. Mild to moderate left ventricular dysfunction, chronic systolic heart failure, preoperative EF 30-45% 3. Mild mitral valve regurgitation 4. Moderately dilated ascending aorta 4.2 cm 5. History of coronary artery disease status post remote inferior wall [place] with RCA stent 6. History of hypertension, currently hypotensive 7. Hyperlipidemia 8. Previous tobacco dependence with FEV1 88% of predicted 9. Remote history of pneumonia 10. BPH 11. Family history of premature coronary artery disease 12. Postoperative acute blood loss anemia, status post blood transfusion 13. Postoperative afib, status post clip ligation of the left atrial appendage 14. Postoperative urinary retention Plan: 1. Continue aspirin, statin, Plavix, beta branden. Will increase beta branden as tolerated, increased to 25 mg 3 times daily today. 2. Continue low-dose calcium channel branden for radial artery spasm as tolerated dependent on BP, parameters placed 3. Continue amiodarone for afib prophylaxis. Continue Eliquis for anticoagulation 4. Bronchodilators per pulmonology Encourage incentive spirometry 10 times every hour while awake 5. Increase activity, ambulate as tolerated. PT/OT/cardiac rehab following 6. Will monitor daily labs and x-rays. Electrolyte replacement per protocol. 7. Pain control with current medication regimen 8. Insulin management per primary care service. Hemoglobin A1c preoperatively 5.2% 9. Patient will be nothing by mouth after midnight for possible cardioversion tomorrow by Dr. Alonso 10. Urology consulted for retention. Continue Flomax twice daily. Trial void today, if unsuccessful will replace Grimm and patient will have to have trial void again in a few days per urology recommendations 11. Transfer orders placed yesterday for 3 S. cardiac stepdown unit, may transfer when bed available 12. Discharge planning in progress. Anticipate DC to inpatient rehab in the next 24-48 hours with cardiology, pulmonology, urology to follow 13. More recommendations to follow based on patient's progress Time with Patient: Greater than 30
--- NOTE | 2020-04-18 10:09 | PN ---
PROGRESS NOTE Mr. Pereyra is a 79-year-old male, status post coronary artery bypass grafting. He is doing well this morning. He continued to be in atrial flutter. He is sitting up in the chair. Hemodynamically, he is stable. He denies any chest pain. He denies any dizziness, palpitation, he denies any nausea. His ventricular response is mildly fast at this time. He was started on anticoagulation. He continues to be on amiodarone 40 mg twice a day, amlodipine 10 mg daily, Eliquis 5 mg twice a day, aspirin once a day, Lipitor 40 mg daily, metoprolol tartrate 25 mg twice a day. PHYSICAL EXAMINATION: Blood pressure 102/60 with a heart rate in the 110s. LUNGS: With mild decrease in breath sounds, no wheezes. HEART: Irregular, regular, S1, S2, no S3, with a systolic murmur, no diastolic murmur. ABDOMEN: Soft, nontender. EXTREMITIES: No edema. IMPRESSION: 1. Status post coronary artery bypass grafting, stable. 2. Atrial flutter postoperatively. 3. History of hypertension. 4. Hyperlipidemia. RECOMMENDATION: Will continue anticoagulation. Will monitor his ventricular response. Will keep him n.p.o. after midnight. I will increase the dose of his metoprolol to 25 mg 3 times a day. If he remains in atrial flutter with variable heart rate, then will consider IMANI guided cardioversion prior to transfer to rehab. MALORIE / CHACORTAN: [id number] /
[2020-04-18 12:02] LABS: Glucose,Whole Blood 102 mg/dL (75-99)
[2020-04-18] MEDS: amLODIPine 2.5 MG TAB PO SCH (12:08)
--- NOTE | 2020-04-18 14:40 | P.PN ---
Subjective Progress Note Date: 04/18/20 Principal diagnosis: Status post quadruple coronary artery bypass, postoperative day #5 04/16/2020, the patient is postop day #3. He is currently on oxygen at 2 by nasal cannula. He was recovering nicely and he was doing well until this morning when he developed an atrial fibrillation with rapid ventricular response. Currently is on amiodarone loading at 1 mg an hour. He did not have any significant hemodynamic instability or hypotension. He remains on normal state rate of 20 mL an hour. Hemoglobin done at 6.8 and the patient is going to receive a unit of packed RBC. He is pulling approximately 1500 on the incentive spirometer. The medius chest tubes have been removed. Left-sided chest tube is still in place. Output has been noted. Output will be monitored. Tolerating diet. No nausea vomiting, chest pain. No other significant events overnight. On 04/17/2020, patient was evaluated, remains in the intensive care unit, he is postoperative day #4, on room air, O2 saturations 96%. He is in atrial fibrillation/flutter 75 bpm, patient denies any shortness of breath cough or wheezing, however he seems to be generally weak, and may require rehabilitation placement. Patient received a unit of packed RBCs for low hemoglobin of 6.7 yesterday, and his hemoglobin is 7.9 today. Still having issues with voiding and emptying his bladder fully. Had to be straight cathed 2. Patient seems to be generally weak, but able to ambulate short distances. Reevaluated today on 04/18/20, patient is now postoperative day #5, doing well, however he is in atrial flutter, and cardioversion is being considered. Hemodynamically stable. Patient denies any shortness of breath, but clearly patient is in atrial flutter with controlled rate, becomes tachycardic with any activity. Remains on beta blockers, seen by cardiology, considering cardioversion. CBC is relatively normal hemoglobin is a bit low at 8.2 lites was are normal BUN is 41 creatinine is 1.15. Chest x-ray showed minimal bibasilar atelectasis. No evidence of congestive heart failure. Objective - Vital Signs Vital signs: Vital Signs Temp 98.3 F 04/18/20 12:00 Pulse 95 04/18/20 12:00 Resp 17 04/18/20 12:00 BP 93/75 04/18/20 12:00 Pulse Ox 95 04/18/20 12:00 Intake & Output 04/17/20 04/18/20 04/18/20 18:59 06:59 18:59 Intake Total 46 300 Output Total 540 575 0 Balance -494 -275 0 Weight 88.4 kg Intake: IV 46 Pressure Bags 6 Sodium Chloride 0.9% 1, 40 000 ml @ 20 mls/hr IV . Q24H [facility] Rx#:[id number] Oral 200 Tube Feeding 100 Output: Urine 540 575 0 Other: Voiding Method Indwelling Catheter Indwelling Catheter # Bowel Movements 1 ABP, PAP, CO, CI - Last Documented Arterial Blood Pressure 105/47 Pulmonary Artery Pressure 28/7 Cardiac Output 6.1 Cardiac Index 3.1 - Exam Physical Exam: Revealed a 79-year-old white male, in no distress, on room air. Head: Atraumatic, normocephalic. HEENT:[Neck is supple.] [No neck masses.] [No thyromegaly.] [No JVD.] Chest: [Diminished breath sounds at the bases no crackles or rhonchi or wheezes. Cardiac Exam: [Normal S1 and S2, no S3 gallop, no murmur.] Abdomen: [Soft, nontender, no megaly, no rebound, no guarding, normal bowel sounds.] Extremities: [No clubbing, no edema, no cyanosis.] Neurological Exam: [No focal neurologic deficit.] Psychiatric: Normal mood, affect and normal mental status examination. - Labs CBC & Chem 7: 04/18/20 05:38 04/18/20 05:38 Labs: Abnormal Lab Results - Last 24 Hours (Table) 04/17/20 04/17/20 04/18/20 Range/Units 16:33 20:26 05:38 RBC 2.49 L (4.30-5.90) m/uL Hgb 8.2 L (13.0-17.5) gm/dL Hct 25.4 L (39.0-53.0) % MCV 101.9 H (80.0-100.0) fL RDW 19.2 H (11.5-15.5) % Sodium (137-145) mmol/L BUN (9-20) mg/dL Glucose (74-99) mg/dL POC Glucose (mg/dL) 131 H 123 H (75-99) mg/dL Calcium (8.4-10.2) mg/dL 04/18/20 04/18/20 Range/Units 05:38 12:00 RBC (4.30-5.90) m/uL Hgb (13.0-17.5) gm/dL Hct (39.0-53.0) % MCV (80.0-100.0) fL RDW (11.5-15.5) % Sodium 132 L (137-145) mmol/L BUN 41 H (9-20) mg/dL Glucose 103 H (74-99) mg/dL POC Glucose (mg/dL) 102 H (75-99) mg/dL Calcium 8.0 L (8.4-10.2) mg/dL Assessment and Plan Assessment: Impression: Status post four-vessel CABG postoperative day #5 Moderate severe LV dysfunction and chronic congestive heart failure./Systolic in nature. Coronary artery disease and previous PCI and stenting of the RCA. History of inferior wall [place] in 2001. Hypertension. Dyslipidemia. Postoperative anemia, expected requiring blood transfusion. Postoperative atrial flutter, being addressed by cardiology. Recommendation: Continue aspirin, beta blockers Plavix and statin. Continue amiodarone. Anticoagulation therapy. Continue bronchodilators. Continue incentive spirometry, Continue pain control. Monitor daily labs and x-rays. We'll continue to follow while in the ICU. Time with Patient: Less than 30
--- NOTE | 2020-04-18 14:57 | P.PN ---
Subjective Progress Note Date: 04/18/20 - History of Present Illness 79-year-old male one of my office patient with long-standing history of CAD post MT with history of PCI and stent placement of the right coronary artery disease over 10 years ago who is known to have history of hypertension hyperlipidemia and previous history of tobacco dependency patient has been doing natural management for many years has become slightly bit symptomatic lately with significant shortness of breath and decrease endurance when attempted to walk and ambulate was seen Dr. FRANK patel and end up going for stress test showed moderate area of infarct ischemic change patient ended up going for heart cath on 03/09/2020 finding was consistent with 80 percentile blockage of the LAD, 70% blockage in the mid LAD, 90% blockage of the circumflex and 95% blockage of the RCA. Patient was seen cardiothoracic surgeon and plan for bypass surgery with surgery scheduled for today ended up having 4 vessel bypass surgery and was sent to the ICU on mechanical ventilation. Patient otherwise hemodynamically stable has 2 mediastinal and left pleural tube in place has been draining some. 04/14: Patient is seen today in the intensive care unit. Patient is in the recliner and appears to be comfortable. He was successfully extubated last evening. He is status post one unit of packed RBCs this morning. Patient has been afebrile, heart rate 84, blood pressure 113/43, pulse ox 99% on 2 L nasal cannula. Blood sugars are running between 110 and 130. He has been on insulin drip at 2 units currently on hold for blood sugar 110. Repeat blood work revealed WBC 11.7, hemoglobin 7.8. Sodium 138, potassium 5.0, chloride 109, CO2 25, BUN 23 and creatinine 0.79. engine monitor is a sinus rhythm. 04/15: Patient remains in ICU, he is comfortable without any shortness of breath, he has minimal amount of edema however he mentions this is much better, patient has left-sided rib pain, still has one Cordis left main the left side. Patient is receiving 1 unit of packed red blood cells earlier today, total of [address] surgery and 1 unit pre-surgery hemoglobin at 6.9, WBC count of 12.6, potassium 4.9 creatinine 0.93. Blood sugars ranging 104-138 albumin is low at 2.8 , on oral iron 325 mg twice a day, Plavix aspirin Lopressor and insulin scale. Daughter is at bedside, questions were answered, no lightheadedness or dizziness identified today, Grimm catheter is in place, attempt to discontinue it this evening 04/17: Patient remains in the intensive care unit. Pacemaker wire was removed this morning. Chest tube is to come out later today. Patient required replacement of Grimm catheter due to urinary retention and urology consult was added. We will increase Flomax to twice daily. Patient is been started on eliquis as well as amiodarone oral. He is reaching 750 ML's on incentive spirometry. Discharge plan is expected tomorrow. Patient will be either going home or to inpatient rehab. Consult with Dr. Steward is in place. Patient has been afebrile, heart rate 89, blood pressure 100/60, pulse ox 97% on room air. Blood work reveals hemoglobin 7.9. BUN 40 creatinine 0.86. 04/18: Patient is still in atrial flutter and cardiology is planning for cardioversion tomorrow. Lopressor was increased to 25 mg 3 times daily. Patient's been afebrile, heart rate 118, blood pressure 102/57, pulse ox 95% on room air. Blood sugars running between 103 and 131. Hemoglobin 8.2. BUN 41 creatinine 1.15, sodium 132. Patient has been seen by Dr. strong with recommendations to remove Grimm at 6 AM tomorrow and monitor postvoid residuals, is elevated patient main require Grimm cath replaced. Discharge planning is currently [address] [place] [address] for acute rehab. Possible discharge to rehab tomorrow. Review of systems CONSTITUTIONAL: Denies fever, denies chills. EYES: No icterus sclerae, no conjunctivitis. EARS, NOSE, MOUTH, THROAT, and FACE: No sore throat, lymphadenopathy, carotid bruits or deformity. RESPIRATORY: Denies shortness of breath, denies cough, denies wheezing. CARDIOVASCULAR: 4 vessel CABG with incision looks fine. Postop surgical pain. GASTROINTESTINAL: No Abd pain, Nausea or vomiting, no Diarrhea or constipation, No GI Bleed, no distention or masses. GENITOURINARY: Negative for Hematuria or UTI, no kidney stones. Reports urinary retention. INTEGUMENT/BREAST: Negative for any muscular injury with mild osteoarthritis.. HEMATOLOGIC/LYMPHATIC: Negative for bleed or purpura. MUSCULOSKELTAL: Negative for Myalgia or arthralgia. NEURLOGICAL: Sedated on mechanical ventilation is still awaking for pain sti muli. BEHAVIORAL/PSYCH: Negative. ENDOCRINE: Negative. Blood sugars controlled Physical examination General Appearance: This is a 79-year-old male. He is sitting up in a recliner. Neck HEENT: Supple, no lymphadenopathy, no thyroid enlargement, no carotid bruits. Lungs: Decreased breath sound, no wheezes, no rhonchi. Chest Wall: Incision on the chest wall looks fine with no sign of bleeding. Heart: Regular rate and rhythm, S1, S2 normal, no murmur, rub or gallop. Back: Symmetric, no curvature, ROM normal, no CVA tenderness. Abdomen: Soft, non-tender, bowel sounds present, no masses, no organomegaly. Grimm catheter draining clear jm urine. Extremities: Trace edema and decreased pulses bilaterally. Pulses: 2+ and symmetric. Skin: Skin color, texture, tugor normal, no rashes or lesions. Neurologic: Patient is awake alert and oriented 3. No focal neural deficits. Assessment and plan 1 post triple vessel coronary disease post 4 vessel coronary artery bypass grafting with KEANE to the LAD, left radial arterial graft to the OM, SVG to the PDA, SVG to the diagonal with left radial artery harvest along with left lower extremity endoscopy Vein harvest. 2 post surgical respiratory failure on mechanical ventilation been managed by pulmonary critical care. Patient has been successfully extubated. 3 hypertension. Continue amiodarone, Lopressor. 4 hyperlipidemia: atorvastatin 40 mg daily resume medication. 5 BPH with urinary retention requiring Grimm catheter placement. Increase Flomax to twice daily. Urology consult. 6 history of osteoarthritis post right total knee arthroplasty. 7 hyperglycemia. NovoLog scale. 8 mild anemia: Post surgery most likely from surgical blood loss was start patient on iron supplement along with multivitamins. 9 mild reactive airway: Was started on DuoNeb by pulmonary continue bronchodilator along with O2 for now. 10 postop atrial flutter. Oral amiodarone, Lopressor and eliquis. Butch version tomorrow. 11 DVT prophylaxis: Eliquis. 12 GI prophylaxis: Pantoprazole IV. CODE STATUS: Full code. Discharge plan: inpatient rehab at [facility]. Consult with Dr. Steward. Impression and plan of care have been directed as dictated by the signing physic david. Alisson Convery nurse practitioner acting as scribe for signing physician. Objective - Vital Signs Vital signs: Vital Signs Temp 98.3 F 04/17/20 12:00 Pulse 105 H 04/18/20 07:37 Resp 18 04/18/20 07:01 BP 97/69 04/18/20 05:00 Pulse Ox 96 04/18/20 07:01 Intake & Output 04/17/20 04/18/20 04/18/20 18:59 06:59 18:59 Intake Total 46 300 Output Total 540 575 0 Balance -494 -275 0 Weight 88.4 kg Intake: IV 46 Pressure Bags 6 Sodium Chloride 0.9% 1, 40 000 ml @ 20 mls/hr IV . Q24H [facility] Rx#:[id number] Oral 200 Tube Feeding 100 Output: Urine 540 575 0 Other: Voiding Method Indwelling Catheter Indwelling Catheter ABP, PAP, CO, CI - Last Documented Arterial Blood Pressure 105/47 Pulmonary Artery Pressure 28/7 Cardiac Output 6.1 Cardiac Index 3.1 - Labs CBC & Chem 7: 04/18/20 05:38 04/18/20 05:38 Labs: Abnormal Lab Results - Last 24 Hours (Table) 04/17/20 04/17/20 04/17/20 Range/Units 04:50 11:44 16:33 RBC (4.30-5.90) m/uL Hgb (13.0-17.5) gm/dL Hct (39.0-53.0) % MCV (80.0-100.0) fL RDW (11.5-15.5) % Sodium (137-145) mmol/L BUN (9-20) mg/dL Glucose (74-99) mg/dL POC Glucose (mg/dL) 112 H 131 H (75-99) mg/dL Calcium (8.4-10.2) mg/dL Iron 27 L (65-175) ug/dL TIBC 194 L (228-460) ug/dL % Saturation 13.92 L (15.00-50.00) 04/17/20 04/18/20 04/18/20 Range/Units 20:26 05:38 05:38 RBC 2.49 L (4.30-5.90) m/uL Hgb 8.2 L (13.0-17.5) gm/dL Hct 25.4 L (39.0-53.0) % MCV 101.9 H (80.0-100.0) fL RDW 19.2 H (11.5-15.5) % Sodium 132 L (137-145) mmol/L BUN 41 H (9-20) mg/dL Glucose 103 H (74-99) mg/dL POC Glucose (mg/dL) 123 H (75-99) mg/dL Calcium 8.0 L (8.4-10.2) mg/dL Iron (65-175) ug/dL TIBC (228-460) ug/dL % Saturation (15.00-50.00)
--- NOTE | 2020-04-18 15:47 | CDI ---
Documentation Clarification Form Date: 04/18/2020 03:35:30 PM From: Lisa Valderrama CCS, CCDS Admit Date: 04/13/2020 05:36:00 AM Patient Name: Anatoly Pereyra Visit Number: [id number] Discharge Date: ATTENTION: The Clinical Documentation Specialists (CDI) and [facility] Coding Staff appreciate your assistance in clarifying documentation. Please respond to the clarification below the line at the bottom and electronically sign. The CDI & [facility] Coding staff will review the response and follow-up if needed. Please note: Queries are made part of the Legal Health Record. If you have any questions, please contact the author of this message via ITS. Dr. Telly Mccurdy: Per the Medical Management Progress Note: "Post surgical respiratory failure on mechanical ventilation been managed by pulmonary critical care. Patient has been successfully extubated." Patients Admitting Diagnosis: Severe Triple Vessel CAD Post-Operative Diagnosis: Same Procedure performed: 04/13: CABG x4. History/Risk Factors: "Coronary artery disease with previous stenting of the RCA, history of KS, hypertension, hyperlipidemia, previous tobacco dependence, family history of premature coronary artery disease, osteoarthritis." Clinical Indicators: Per the 04/14 CTS Progress Note, the patient was extubated on 04/13, no SOB. Treatment: Aspirin, Statin, Plavix, Beta branden, Wean O2, Bronchodilators per pulmonary, Incentive spirometry, Increase activity, PT/OT/Cardiac Rehab, Daily labs & Xrays, IV Lasix, Pain control. Chest tubes x24 hrs, Grimm cath. In order to accurately reflect this patients severity of illness, please clarify if the respiratory failure is: XX Postoperative Respiratory Failure is ruled out Is a complication of the surgical procedure Is an expected outcome of the surgical procedure Is related to co-morbid condition(s) of: Other please specify: Unable to determine (Last Revision: October 2019) DEJAHD
[2020-04-18 17:13] LABS: Glucose,Whole Blood 109 mg/dL (75-99)
[2020-04-18] MEDS: SENNOSIDES-DOCUSATE SODIUM 1 EACH TAB PO SCH (21:02)
[2020-04-18 21:20] LABS: Glucose,Whole Blood 134 mg/dL (75-99)
[2020-04-19 04:35] LABS: Anisocytosis Slight; HCT 25.1 % (39.0-53.0); Hypochromasia Slight; MCH 32.7 pg (25.0-35.0); MCHC 31.8 g/dL (31.0-37.0); Macrocytosis Moderate; Mean Platelet Volume 9.1; Platelet Count 393 k/uL (150-450); RBC 2.43 m/uL (4.30-5.90); RDW 19.7 % (11.5-15.5); WBC 9.9 k/uL (3.8-10.6)
[2020-04-19 04:43] LABS: Calcium 7.7 mg/dL (8.4-10.2); Potassium 4.8 mmol/L (3.5-5.1)
[2020-04-19 07:00] LABS: Glucose,Whole Blood 103 mg/dL (75-99)
[2020-04-19] MEDS: INSULIN ASPART (NovoLOG) 100 UNIT/ML VIAL SQ SCH ×3 (07:16→17:43)
[2020-04-19] MEDS: IPRATROPIUM-ALBUTEROL 3 ML NEB INHALATION SCH ×4 (07:27→19:32)
--- NOTE | 2020-04-19 07:38 | XR ---
EXAMINATION TYPE: XR chest 2V DATE OF EXAM: 04/19/2020 COMPARISON: 04/18/2020 HISTORY: 79 year-old male post cardiac surgery TECHNIQUE: PA and lateral views FINDINGS: Median sternotomy wires are present with post-CABG clips in the mediastinum. Heart remains mildly enl arged. Pulmonary vasculature within normal limits. Improving overall lung volumes from prior exam. Co ntinued small effusions with adjacent posterior basilar opacity on the lateral view. IMPRESSION: Stable mild cardiomegaly but with improved overall lung volumes. Continued small pleural effusions wi th adjacent atelectasis.
[2020-04-19] MEDS: APIXABAN 5 MG TAB PO SCH (08:03)
[2020-04-19] MEDS: AMIODARONE 200 MG TAB PO SCH (08:04)
[2020-04-19] MEDS: TAMSULOSIN 0.4 MG CAP.ER.24H PO SCH (08:04)
[2020-04-19] MEDS: ASCORBIC ACID 500 MG TAB PO SCH ×2 (08:05→17:45)
[2020-04-19] MEDS: FERROUS SULFATE 325 MG TAB PO SCH ×2 (08:05→17:45)
[2020-04-19] MEDS: ASPIRIN 81 MG PO SCH (08:06)
[2020-04-19] MEDS: ATORVASTATIN 40 MG TAB PO SCH (08:06)
[2020-04-19] MEDS: MULTIVITAMINS, THERA 1 EACH TAB PO SCH (08:06)
[2020-04-19] MEDS: METOPROLOL TARTRATE 25 MG TAB PO SCH ×2 (08:06→17:43)
[2020-04-19] MEDS: PANTOPRAZOLE 40 MG TABLET PO SCH (08:06)
[2020-04-19] MEDS ORDERED: ATROPINE SULFATE 0.1 MG/ML 10ML SYRINGE ONE (09:28)
--- NOTE | 2020-04-19 09:47 | P.PN ---
Subjective Progress Note Date: 04/19/20 Principal diagnosis: Triple-vessel coronary artery disease, mild to moderate left ventricular dysfunction with preoperative EF 40-45%, mild mitral valve regurgitation, moderately dilated ascending aorta around 4.2 cm. Previous history of coronary artery disease status post remote inferior wall myocardial infarction with RCA stent, hypertension, hyperlipidemia, previous tobacco dependence with FEV1 88% of predicted, remote history of pneumonia, BPH, and family history of premature coronary artery disease with mother having CABG at 60 years old. POD #6 quadruple coronary artery bypass grafting using the left internal mammary artery to the left anterior descending artery, left radial artery from the aorta to the obtuse marginal artery, reverse saphenous vein graft from the aorta to the diagonal artery, reverse saphenous vein graft from the aorta to the junction of the RCA to the posterior descending artery. Exclusion of the left atrial appendage using a 35 mm after clip. Endoscopic harvesting of the left radial artery. Endoscopic harvesting of the left greater saphenous vein from the groin to above the ankle level. Intraoperative transesophageal echocardiogram and epi-aortic scanning. Intraoperative graft flow measurements using the [employer] [facility] system. Postoperative acute blood loss anemia, expected given cardiopulmonary bypass pump, hemodilution, and patient's continued Plavix up until the day before surgery Postoperative atrial fibrillation/atrial flutter, unexpected but common occurrence after open heart surgery Postoperative urinary retention, expected given history of BPH This patient was seen and examined sitting up in the recliner in the intensive care unit and in no acute distress. He denies any complaints of shortness of breath and his pain is controlled on the current pain regimen. Dr. Steward following for inpatient rehab. He is currently NPO for cardioversion today due to atrial flutter. Patient seen by urology for urinary retention. Soria was discontinued yesterday and he had be straight cathed overnight for urinary retention. According to the patient, urinary retention is not uncommon after surgery and it resolves over time with Flomax. Objective - Vital Signs Vital signs: Vital Signs Temp 98.1 F 04/19/20 08:00 Pulse 99 04/19/20 08:00 Resp 22 04/19/20 08:00 BP 117/59 04/19/20 08:00 Pulse Ox 99 04/19/20 08:00 Intake & Output 04/18/20 04/19/20 04/19/20 18:59 06:59 18:59 Intake Total 500 Output Total 1000 450 0 Balance -1000 50 0 Intake: Oral 500 Output: Urine 500 450 0 Post Void Residual 500 Other: Voiding Method Urinal # Bowel Movements 1 ABP, PAP, CO, CI - Last Documented Arterial Blood Pressure 105/47 Pulmonary Artery Pressure 28/7 Cardiac Output 6.1 Cardiac Index 3.1 - Constitutional General appearance: Present: cooperative, no acute distress - EENT Eyes: Present: PERRLA - Neck Neck: Present: normal ROM. Absent: lymphadenopathy - Respiratory Details: Lungs sounds diminished bilaterally. Respirations even, nonlabored. Currently on room air with oxygen saturation 989%. Able to achieve 1000 mL on incentive spirometry. Strong cough with productive minimal clear sputum. - Cardiovascular Details: S1, S2 present. Irregular rate and rhythm, atrial flutter on telemetry. Sternum stable. Palpable peripheral pulses bilaterally. No edema present. No calf pain or tenderness noted. Heart hugger in place with patient demonstrating appropriate use. SCDs, antiembolism stockings present. - Gastrointestinal Gastrointestinal Comment(s): Abdomen soft, nontender, nondistended. Active bowel sounds present 4 quadrants. Tolerating diet. Positive bowel movement and flatus. - Genitourinary Genitourinary Comment(s): Soria catheter discontinued yesterday. Patient had to be straight cathed overnight - Integumentary Integumentary Comment(s): Skin is warm and dry with evidence of good perfusion. Anterior chest incision well approximated and covered with dry intact dressing. Left lower extremity EVH site well approximated. Left radial artery harvest site well approximated, patient is able to wiggle fingers and respiratory physician appropriately. Good cap refill. - Neurologic Neurologic: Present: CNII-XII intact - Musculoskeletal Musculoskeletal: Present: generalized weakness, strength equal bilaterally - Psychiatric Psychiatric: Present: A&O x's 3 - Allied health notes Allied health notes reviewed: nursing - Labs CBC & Chem 7: 04/19/20 04:21 04/19/20 04:21 Labs: Abnormal Lab Results - Last 24 Hours (Table) 04/18/20 04/18/20 04/18/20 Range/Units 12:00 17:12 21:18 RBC (4.30-5.90) m/uL Hgb (13.0-17.5) gm/dL Hct (39.0-53.0) % MCV (80.0-100.0) fL RDW (11.5-15.5) % Sodium (137-145) mmol/L BUN (9-20) mg/dL POC Glucose (mg/dL) 102 H 109 H 134 H (75-99) mg/dL Calcium (8.4-10.2) mg/dL 04/19/20 04/19/20 04/19/20 Range/Units 04:21 04:21 06:57 RBC 2.43 L (4.30-5.90) m/uL Hgb 8.0 L (13.0-17.5) gm/dL Hct 25.1 L (39.0-53.0) % MCV 103.0 H (80.0-100.0) fL RDW 19.7 H (11.5-15.5) % Sodium 132 L (137-145) mmol/L BUN 36 H (9-20) mg/dL POC Glucose (mg/dL) 103 H (75-99) mg/dL Calcium 7.7 L (8.4-10.2) mg/dL - Imaging and Cardiology Chest x-ray: report reviewed, image reviewed Assessment and Plan Assessment: 1. Triple-vessel coronary artery disease, status post four-vessel CABG 2. Mild to moderate left ventricular dysfunction, chronic systolic heart failure, preoperative EF 30-45% 3. Mild mitral valve regurgitation 4. Moderately dilated ascending aorta 4.2 cm 5. History of coronary artery disease status post remote inferior wall VA with RCA stent 6. History of hypertension, currently hypotensive 7. Hyperlipidemia 8. Previous tobacco dependence with FEV1 88% of predicted 9. Remote history of pneumonia 10. BPH 11. Family history of premature coronary artery disease 12. Postoperative acute blood loss anemia, status post blood transfusion 13. Postoperative afib, status post clip ligation of the left atrial appendage 14. Postoperative urinary retention Plan: 1. Continue aspirin, statin, Plavix, beta branden. Will increase beta branden as tolerated, increased to 25 mg 3 times daily yesterday 04/18/2020. 2. Continue low-dose calcium channel branden for radial artery spasm as tolerated dependent on BP, parameters placed. Please do not discontinue without checking with cardiothoracic surgery service. 3. Continue amiodarone 400 mg by mouth twice a day for afib prophylaxis. Continue Eliquis for anticoagulation. 4. Bronchodilators per pulmonology Encourage incentive spirometry 10 times every hour while awake. 5. Increase activity, ambulate as tolerated. PT/OT/cardiac rehab following. 6. Will monitor daily labs and chest x-rays. Electrolyte replacement per protocol. 7. Pain control with current medication regimen. 8. Insulin management per primary care service. Hemoglobin A1c preoperatively 5.2% 9. Cardioversion planned for today by Dr. Alonso. 10. Urology consulted for retention. Continue Flomax twice daily. Soria discontinued yesterday, was straight cathed this morning, if unable to void we will place soria catheter prior to discharge to rehab. 11. Transfer orders placed yesterday for 3 S. cardiac stepdown unit, may transfer when bed available. 12. Discharge planning in progress. Anticipate DC to inpatient rehab in the next 24-48 hours with cardiology, pulmonology, urology to follow. 13. More recommendations to follow based on patient's clinical progress. Time with Patient: Greater than 30
--- NOTE | 2020-04-19 09:48 | PN ---
PROGRESS NOTE Mr. Pereyra is a 79-year-old male, status post coronary bypass grafting. He is feeling well today. He continued to be in atrial flutter. He denies any chest pain. He denies any dizziness, palpitation. He denies any nausea. His rate is relatively controlled. He continues to be at this time on amiodarone 400 mg twice a day, amlodipine 2.5 mg daily, Eliquis 5 mg twice a day, aspirin 81 mg daily, metoprolol tartrate 25 mg 3 times a day. PHYSICAL EXAMINATION: Blood pressure 100/70 with a heart rate in 90s. LUNGS: No wheezes. HEART: Irregular, regular. S1, S2. No S3. No rub. ABDOMEN: Soft, nontender. EXTREMITIES: No edema. LAB DATA: Revealed hemoglobin is 8.0, BUN and creatinine 36 and 1.05, potassium 4.8. IMPRESSION: 1. Status post coronary artery bypass grafting. 2. Atrial flutter. 3. History of hyperlipidemia. 4. History of hypertension. RECOMMENDATION: Is in view of the persistent atrial flutter and the unstable rate, I would recommend to proceed with IMANI guided cardioversion to restore normal sinus rhythm. Subsequently, the patient can be transferred to inpatient rehab. MMAMYL / CHACORTAN: [id number] /
[2020-04-19] MEDS ORDERED: PHENYLEPHRINE-0.9% NACL SYG 1 MG/10 ML SYRINGE ONE (10:47)
[2020-04-19] MEDS ORDERED: PROPOFOL 10 MG/ML 20 ML VIAL IV ONE (10:47)
[2020-04-19 11:59] LABS: Glucose,Whole Blood 99 mg/dL (75-99)
[2020-04-19] MEDS ORDERED: ALBUMIN HUMAN 5% 250 ML in EMPTY BAG 1 BAG IVPB ONE (12:00)
--- NOTE | 2020-04-19 12:03 | ECHOT ---
TRANSESOPHAGEAL ECHOCARDIOGRAM INDICATION: Atrial flutter. PROCEDURE: After explaining the procedure to the patient, its risks and complication, his blood pressure, heart rate, O2 saturation was monitored. The throat was sprayed with Cetacaine. He received sedation per Anesthesia Department. The probe was introduced in the esophagus without difficulty. Images were obtained. Following that, the probe was removed. FINDINGS: Left atrial size is upper size of normal. Left ventricular size is normal. There is evidence of mild global hypokinesis. There is an estimated ejection fraction is 40%- 45%. The aortic valve appears to be normal. Mitral valve is normal. Tricuspid valve is normal. Descending thoracic aorta revealed mild atherosclerotic changes. The left atrial appendages disclosed minimal pericardial effusion was noted. Contrast bubble study revealed no shunting across the interatrial septum. Doppler pulse wave and color Doppler obtained and revealed a moderate mitral with mild tricuspid regurgitation but there was no shunting by color Doppler study. CONCLUSION: 1. Closed left atrial appendage. 2. Mild to moderate global hypokinesis. 3. Interatrial septal aneurysm. 4. Moderate mitral with mild tricuspid regurgitation. 5. No shunting by color Doppler study. 6. No pericardial effusion. MMODL / IJN: [id number] /
[2020-04-19] MEDS: MAGNESIUM HYDROXIDE 2,400 MG/10 ML CUP PO SCH (12:09)
--- NOTE | 2020-04-19 12:18 | CE ---
CARDIAC ELECTROPHYSIOLOGY REPORT CARDIOVERSION PROCEDURE NOTE: INDICATION: Atrial flutter. PROCEDURE: After explaining the procedure to the patient, its risks and complication. After obtaining transesophageal echocardiogram, a synchronized biphasic cardioversion using 200 joules was performed with denominational of normal sinus rhythm. There was no immediate complication. MALORIE / CATRACHITA: [id number] /
[2020-04-19] MEDS: amLODIPine 2.5 MG TAB PO SCH (14:03)
--- NOTE | 2020-04-19 14:08 | P.PN ---
Subjective Progress Note Date: 04/19/20 Principal diagnosis: Status post quadruple coronary artery bypass, postoperative day #6 04/16/2020, the patient is postop day #3. He is currently on oxygen at 2 by nasal cannula. He was recovering nicely and he was doing well until this morning when he developed an atrial fibrillation with rapid ventricular response. Currently is on amiodarone loading at 1 mg an hour. He did not have any significant hemodynamic instability or hypotension. He remains on normal state rate of 20 mL an hour. Hemoglobin done at 6.8 and the patient is going to receive a unit of packed RBC. He is pulling approximately 1500 on the incentive spirometer. The medius chest tubes have been removed. Left-sided chest tube is still in place. Output has been noted. Output will be monitored. Tolerating diet. No nausea vomiting, chest pain. No other significant events overnight. On 04/17/2020, patient was evaluated, remains in the intensive care unit, he is postoperative day #4, on room air, O2 saturations 96%. He is in atrial fibrillation/flutter 75 bpm, patient denies any shortness of breath cough or wheezing, however he seems to be generally weak, and may require rehabilitation placement. Patient received a unit of packed RBCs for low hemoglobin of 6.7 yesterday, and his hemoglobin is 7.9 today. Still having issues with voiding and emptying his bladder fully. Had to be straight cathed 2. Patient seems to be generally weak, but able to ambulate short distances. Reevaluated today on 04/18/20, patient is now postoperative day #5, doing well, however he is in atrial flutter, and cardioversion is being considered. Hemodynamically stable. Patient denies any shortness of breath, but clearly patient is in atrial flutter with controlled rate, becomes tachycardic with any activity. Remains on beta blockers, seen by cardiology, considering cardioversion. CBC is relatively normal hemoglobin is a bit low at 8.2 lites was are normal BUN is 41 creatinine is 1.15. Chest x-ray showed minimal bibasilar atelectasis. No evidence of congestive heart failure. Reevaluated today on 04/19/20, patient is now postoperative day #6. Patient is sitting in her recliner, relatively asymptomatic, remains in atrial flutter, being considered for cardioversion today by cardiology. No pulmonary issues, no cough no wheezing no shortness of breath. Hemodynamically stable. Labs including CBC and basic metabolic profile are relatively unremarkable. Objective - Vital Signs Vital signs: Vital Signs Temp 98.0 F 04/19/20 13:00 Pulse 80 04/19/20 13:00 Resp 23 04/19/20 13:00 BP 91/64 04/19/20 13:00 Pulse Ox 94 L 04/19/20 13:00 Intake & Output 04/18/20 04/19/20 04/19/20 18:59 06:59 18:59 Intake Total 500 450 Output Total 1000 450 0 Balance -1000 50 450 Weight 91.7 kg Intake: IV 200 Sodium Chloride 0.9% 1, 200 000 ml @ 20 mls/hr IV . Q24H MANUEL Rx#:[id number] Intake, IV Titration 250 Amount Albumin Human 5% 250 ml 250 In Empty Bag 1 bag @ 250 mls/hr IVPB ONCE ONE Rx#: [id number] Oral 500 Output: Urine 500 450 0 Post Void Residual 500 Other: Voiding Method Urinal Urinal # Bowel Movements 1 1 ABP, PAP, CO, CI - Last Documented Arterial Blood Pressure 105/47 Pulmonary Artery Pressure 28/7 Cardiac Output 6.1 Cardiac Index 3.1 - Exam Physical Exam: Revealed a 79-year-old white male, in no distress, on room air. Head: Atraumatic, normocephalic. HEENT:[Neck is supple.] [No neck masses.] [No thyromegaly.] [No JVD.] Chest: [Diminished breath sounds at the bases no crackles or rhonchi or wheezes. Cardiac Exam: [Normal S1 and S2, no S3 gallop, no murmur.] Abdomen: [Soft, nontender, no megaly, no rebound, no guarding, normal bowel sounds.] Extremities: [No clubbing, no edema, no cyanosis.] Neurological Exam: [No focal neurologic deficit.] Psychiatric: Normal mood, affect and normal mental status examination. - Labs CBC & Chem 7: 04/19/20 04:21 04/19/20 04:21 Labs: Abnormal Lab Results - Last 24 Hours (Table) 04/18/20 04/18/20 04/19/20 Range/Units 17:12 21:18 04:21 RBC 2.43 L (4.30-5.90) m/uL Hgb 8.0 L (13.0-17.5) gm/dL Hct 25.1 L (39.0-53.0) % MCV 103.0 H (80.0-100.0) fL RDW 19.7 H (11.5-15.5) % Sodium (137-145) mmol/L BUN (9-20) mg/dL POC Glucose (mg/dL) 109 H 134 H (75-99) mg/dL Calcium (8.4-10.2) mg/dL 04/19/20 04/19/20 Range/Units 04:21 06:57 RBC (4.30-5.90) m/uL Hgb (13.0-17.5) gm/dL Hct (39.0-53.0) % MCV (80.0-100.0) fL RDW (11.5-15.5) % Sodium 132 L (137-145) mmol/L BUN 36 H (9-20) mg/dL POC Glucose (mg/dL) 103 H (75-99) mg/dL Calcium 7.7 L (8.4-10.2) mg/dL Assessment and Plan Assessment: Impression: Status post four-vessel CABG postoperative day #6 Moderate severe LV dysfunction and chronic congestive heart failure./Systolic in nature. Coronary artery disease and previous PCI and stenting of the RCA. History of inferior wall RI in 2001. Hypertension. Dyslipidemia. Postoperative anemia, expected requiring blood transfusion. Postoperative atrial flutter, being addressed by cardiology. Will likely have cardioversion today. Recommendation: Scheduled for cardioversion today. Continue aspirin, beta blockers Plavix and statin. Continue amiodarone. Anticoagulation therapy. Continue bronchodilators. Continue incentive spirometry, Continue pain control. We'll continue to follow while in the ICU. Time with Patient: Less than 30
--- NOTE | 2020-04-19 14:33 | P.PN ---
Subjective Progress Note Date: 04/19/20 - History of Present Illness 79-year-old male one of my office patient with long-standing history of CAD post MO with history of PCI and stent placement of the right coronary artery disease over 10 years ago who is known to have history of hypertension hyperlipidemia and previous history of tobacco dependency patient has been doing natural management for many years has become slightly bit symptomatic lately with significant shortness of breath and decrease endurance when attempted to walk and ambulate was seen Dr. FRANK patel and end up going for stress test showed moderate area of infarct ischemic change patient ended up going for heart cath on 03/09/2020 finding was consistent with 80 percentile blockage of the LAD, 70% blockage in the mid LAD, 90% blockage of the circumflex and 95% blockage of the RCA. Patient was seen cardiothoracic surgeon and plan for bypass surgery with surgery scheduled for today ended up having 4 vessel bypass surgery and was sent to the ICU on mechanical ventilation. Patient otherwise hemodynamically stable has 2 mediastinal and left pleural tube in place has been draining some. 04/14: Patient is seen today in the intensive care unit. Patient is in the recliner and appears to be comfortable. He was successfully extubated last evening. He is status post one unit of packed RBCs this morning. Patient has been afebrile, heart rate 84, blood pressure 113/43, pulse ox 99% on 2 L nasal cannula. Blood sugars are running between 110 and 130. He has been on insulin drip at 2 units currently on hold for blood sugar 110. Repeat blood work revealed WBC 11.7, hemoglobin 7.8. Sodium 138, potassium 5.0, chloride 109, CO2 25, BUN 23 and creatinine 0.79. threat monitoring analyst is a sinus rhythm. 04/15: Patient remains in ICU, he is comfortable without any shortness of breath, he has minimal amount of edema however he mentions this is much better, patient has left-sided rib pain, still has one Cordis left main the left side. Patient is receiving 1 unit of packed red blood cells earlier today, total of [address] surgery and 1 unit pre-surgery hemoglobin at 6.9, WBC count of 12.6, potassium 4.9 creatinine 0.93. Blood sugars ranging 104-138 albumin is low at 2.8 , on oral iron 325 mg twice a day, Plavix aspirin Lopressor and insulin scale. Daughter is at bedside, questions were answered, no lightheadedness or dizziness identified today, Grimm catheter is in place, attempt to discontinue it this evening 04/17: Patient remains in the intensive care unit. Pacemaker wire was removed this morning. Chest tube is to come out later today. Patient required replacement of Grimm catheter due to urinary retention and urology consult was added. We will increase Flomax to twice daily. Patient is been started on eliquis as well as amiodarone oral. He is reaching 750 ML's on incentive spirometry. Discharge plan is expected tomorrow. Patient will be either going home or to inpatient rehab. Consult with Dr. Steward is in place. Patient has been afebrile, heart rate 89, blood pressure 100/60, pulse ox 97% on room air. Blood work reveals hemoglobin 7.9. BUN 40 creatinine 0.86. 04/18: Patient is still in atrial flutter and cardiology is planning for cardioversion tomorrow. Lopressor was increased to 25 mg 3 times daily. Patient's been afebrile, heart rate 118, blood pressure 102/57, pulse ox 95% on room air. Blood sugars running between 103 and 131. Hemoglobin 8.2. BUN 41 creatinine 1.15, sodium 132. Patient has been seen by Dr. strong with recommendations to remove Grimm at 6 AM tomorrow and monitor postvoid residuals, is elevated patient main require Grimm cath replaced. Discharge planning is currently 2 [facility] for acute rehab. Possible discharge to rehab tomorrow. 04/19: Patient remains in the intensive care unit. He is scheduled for cardio version today. He denies any new complaints. He has had a bowel movement. No abdominal pain. He is anxious to start rehab and [facility]. Patient has been afebrile, heart rate 71, blood pressure 90/73, pulse ox 95% on 5 L nasal cannula. Repeat blood work reveals WBC 9.9, hemoglobin 8, platelet count 393. Sodium 132, BUN 36 and creatinine 1.05. Blood sugars running between 96 and 134. Grimm catheter was removed and patient did require straight graft at 4 AM. Review of systems CONSTITUTIONAL: Denies fever, denies chills. EYES: No icterus sclerae, no conjunctivitis. EARS, NOSE, MOUTH, THROAT, and FACE: No sore throat, lymphadenopathy, carotid bruits or deformity. RESPIRATORY: Denies shortness of breath, denies cough, denies wheezing. CARDIOVASCULAR: 4 vessel CABG with incision looks fine. Postop surgical pain. GASTROINTESTINAL: No Abd pain, Nausea or vomiting, no Diarrhea or constipation, No GI Bleed, no distention or masses. GENITOURINARY: Negative for Hematuria or UTI, no kidney stones. Reports urinary retention requiring straight cath. INTEGUMENT: No rash HEMATOLOGIC/LYMPHATIC: Negative for bleed or purpura. MUSCULOSKELTAL: Negative for Myalgia or arthralgia. NEURLOGICAL: Sedated on mechanical ventilation is still awaking for pain stimuli. BEHAVIORAL/PSYCH: Negative. ENDOCRINE: Negative. Blood sugars controlled Physical examination General Appearance: This is a 79-year-old male. He is sitting up in a recliner and appears to be in no acute distress.. Neck HEENT: Supple, no lymphadenopathy, no thyroid enlargement, no carotid bruits. Lungs: Decreased breath sound, no wheezes, no rhonchi. Chest Wall: Incision on the chest wall looks fine with no sign of bleeding. Heart: Regular rate and rhythm, S1, S2 normal, no murmur, rub or gallop. Back: Symmetric, no curvature, ROM normal, no CVA tenderness. Abdomen: Soft, non-tender, bowel sounds present, no masses, no organomegaly. Extremities: Trace edema and decreased pulses bilaterally. Pulses: 2+ and symmetric. Skin: Skin color, texture, tugor normal, no rashes or lesions. Neurologic: Patient is awake alert and oriented 3. No focal neural deficits. Assessment and plan 1 post triple vessel coronary disease post 4 vessel coronary artery bypass grafting with KEANE to the LAD, left radial arterial graft to the OM, SVG to the PDA, SVG to the diagonal with left radial artery harvest along with left lower extremity endoscopy Vein harvest. 2 post surgical respiratory failure on mechanical ventilation been managed by pulmonary critical care. Patient has been successfully extubated. 3 hypertension. Continue amiodarone, Lopressor. 4 hyperlipidemia: atorvastatin 40 mg daily resume medication. 5 BPH with urinary retention requiring Grimm catheter placement. Increase Flomax to twice daily. Urology consult. 6 history of osteoarthritis post right total knee arthroplasty. 7 hyperglycemia. NovoLog scale. 8 mild anemia: Post surgery most likely from surgical blood loss was start patient on iron supplement along with multivitamins. 9 mild reactive airway: Was started on DuoNeb by pulmonary continue bronchodilator along with O2 for now. 10 postop atrial flutter. Oral amiodarone, Lopressor and eliquis. Cardioversion today 11 DVT prophylaxis: Eliquis. 12 GI prophylaxis: Pantoprazole IV. CODE STATUS: Full code. Discharge plan: inpatient rehab at [facility]. Consult with Dr. Steward. Impression and plan of care have been directed as dictated by the signing physician. Alisson Penny nurse practitioner acting as scribe for signing physician. Objective - Vital Signs Vital signs: Vital Signs Temp 98.1 F 04/19/20 08:00 Pulse 99 04/19/20 08:00 Resp 22 04/19/20 08:00 BP 117/59 04/19/20 08:00 Pulse Ox 99 04/19/20 08:00 Intake & Output 04/18/20 04/19/20 04/19/20 18:59 06:59 18:59 Intake Total 500 Output Total 1000 450 0 Balance -1000 50 0 Intake: Oral 500 Output: Urine 500 450 0 Post Void Residual 500 Other: Voiding Method Urinal # Bowel Movements 1 ABP, PAP, CO, CI - Last Documented Arterial Blood Pressure 105/47 Pulmonary Artery Pressure 28/7 Cardiac Output 6.1 Cardiac Index 3.1 - Labs CBC & Chem 7: 04/19/20 04:21 04/19/20 04:21 Labs: Abnormal Lab Results - Last 24 Hours (Table) 04/18/20 04/18/20 04/18/20 Range/Units 12:00 17:12 21:18 RBC (4.30-5.90) m/uL Hgb (13.0-17.5) gm/dL Hct (39.0-53.0) % MCV (80.0-100.0) fL RDW (11.5-15.5) % Sodium (137-145) mmol/L BUN (9-20) mg/dL POC Glucose (mg/dL) 102 H 109 H 134 H (75-99) mg/dL Calcium (8.4-10.2) mg/dL 04/19/20 04/19/20 04/19/20 Range/Units 04:21 04:21 06:57 RBC 2.43 L (4.30-5.90) m/uL Hgb 8.0 L (13.0-17.5) gm/dL Hct 25.1 L (39.0-53.0) % MCV 103.0 H (80.0-100.0) fL RDW 19.7 H (11.5-15.5) % Sodium 132 L (137-145) mmol/L BUN 36 H (9-20) mg/dL POC Glucose (mg/dL) 103 H (75-99) mg/dL Calcium 7.7 L (8.4-10.2) mg/dL
--- NOTE | 2020-04-19 15:14 | P.DS ---
Providers Date of admission: 04/13/20 05:36 Expected date of discharge: 04/19/20 Attending physician: Charles Olivo Consults: 04/13/20 15:20 Consult Physician Routine Consulting Provider: Lee Vasquez Consult Reason/Comments: Dental Associate Consult: post cardiac surgery Do you want consulting provider notified?: Yes Consult Physician Routine Consulting Provider: Telly Mccurdy Consult Reason/Comments: med mgmt Do you want consulting provider notified?: Yes Consult Physician Routine Consulting Provider: Phoenix Rodriguez Consult Reason/Comments: Optical Glass Etcher Consult: post cardiac surgery Do you want consulting provider notified?: Yes 04/17/20 06:53 Consult Physician Routine Consulting Provider: Leon Bob Consult Reason/Comments: urinary retention Do you want consulting provider notified?: Yes 04/17/20 09:39 Consult Physician Routine Consulting Provider: Andres Steward Consult Reason/Comments: IPR Do you want consulting provider notified?: Yes Primary care physician: Telly Mccurdy [facility] Course: FINAL DIAGNOSIS: 1. Triple-vessel coronary artery disease, status post four-vessel CABG 2. Mild to moderate left ventricular dysfunction, chronic systolic heart failure, preoperative EF 30-45% 3. Mild mitral valve regurgitation 4. Moderately dilated ascending aorta 4.2 cm 5. History of coronary artery disease status post remote inferior wall RI with RCA stent 6. History of hypertension 7. Hyperlipidemia 8. Previous tobacco dependence with FEV1 88% of predicted 9. Remote history of pneumonia 10. BPH 11. Family history of premature coronary artery disease 12. Postoperative acute blood loss anemia, status post blood transfusion 13. Postoperative afib, status post clip ligation of the left atrial appendage, status post synchronized cardioversion 04/19/2020 14. Postoperative urinary retention, requiring placement of Grimm catheter PRINCIPAL PROCEDURE: 1. Quadruple coronary artery bypass grafting using the left internal mammary artery to the left anterior descending artery, left radial artery from the aorta to the obtuse marginal artery, reverse saphenous vein graft from the aorta to the diagonal artery, reverse saphenous vein graft from the aorta to the junction of the RCA to the posterior descending artery. 2. Endoscopic harvesting of the left radial artery. 3. Endoscopic harvesting of the left greater saphenous vein from the groin to above the ankle level. 4. Exclusion of the left atrial appendage using a 35 mm Atriclip. 5. Intraoperative transesophageal echocardiogram and epi-aortic scanning. 6. Intraoperative graft flow measurements using the Medistim system. HISTORY OF PRESENT ILLNESS: This is a 79-year-old gentleman who is followed by Dr. Telly Mccurdy on an outpatient basis. His past medical history significant for coronary artery disease with acute inferior wall myocardial infarction in February 2002 with subsequent bare metal stent placement to the right coronary artery, hyperlipidemia, hypertension, previous tobacco dependence and family history of premature coronary artery disease with his mother having open heart surgery at age 60 years of age. He also follows with Dr. FRANK Knowles from [facility] for his cardiac care. In February 2020 the patient underwent a stress test which showed a moderate area of sheila-infarct ischemia which was a new finding. He denies any recent complaints of shortness of breath or chest pain although was complaining of feeling tired and had lack of energy over the last month. 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 Subsequently he underwent a cardiac catheterization on 03/09/2020 which demonstrated an 80% stenosis to his proximal left anterior descending coronary artery, a 70% stenosis to his mid left anterior descending coronary artery, a 90% stenosis to a circumflex coronary artery, and a 95% stenosis to his right coronary artery. Due to the findings on his stress test and cardiac catheterization a consult was placed to Dr. Charles Olivo from cardiothoracic surgery for further treatment recommendations and possible surgical intervention. The risks and benefits of myocardial revascularization surgery were discussed with the patient including the STS risk score and knowing and understanding these risks the patient wished to proceed with myocardial revascularization surgery. HOSPITAL COURSE: The patient was brought to the perioperative area on 04/13/2020, per perineum usual fashion and subsequently taken to the operating room where Dr. Charles Olivo performed a Quadruple coronary artery bypass grafting using the left internal mammary artery to the left anterior descending artery, left radial artery from the aorta to the obtuse marginal artery, reverse saphenous vein graft from the aorta to the diagonal artery, reverse saphenous vein graft from the aorta to the junction of the RCA to the posterior descending artery, endoscopic harvesting of the left radial artery, endoscopic harvesting of the left greater saphenous vein from the groin to above the ankle level, exclusion of the left atrial appendage using a 35 mm Atriclip, intraoperative transesophageal echocardiogram, epi-aortic scanning and intraoperative graft flow measurements using the Medistim system. Upon completion of the surgery the patient was transferred to the cardiovascular intensive care unit where he was recovered, monitored hemodynamically and where he progressed cardiac rehabilitation phase 1. He was extubated, all lines, tubes and supportive drips were discontinued when appropriate. Transfer orders were placed to the cardiac stepdown unit, however due to lack of bed availability on the cardiac stepdown unit the patient remained in the intensive care unit as a stepdown patient. He did experience a postoperative paroxysmal atrial fibrillation/atrial flutter whi ch was treated accordingly and he underwent a synchronized cardioversion on 04/19/2020 and is currently in normal sinus rhythm. His oxygen was titrated down, he continued to work with physical, occupational therapy and cardiac rehabilitation, he was tolerating an oral diet, his pain was well-controlled and he was ready to be discharged to [facility] inpatient rehab on postoperative day #6. He has received written and verbal instructions regarding his discharge medications, activity restrictions, signs and symptoms requiring physician notification and his follow-up appointments. COMPLICATIONS: The patient's postoperative recovery was complicated by some paroxysmal atrial fibrillation/atrial flutter which was treated accordingly. It was also complicated by some postoperative urinary retention requiring placement of Grimm catheter and is being followed by urology. The patient will be followed by urology at [facility] inpatient rehab. CONSULTATIONS: 1. Dr. FRANK Knowles for cardiology management. 2. Dr. Vasquez for pulmonary and ventilator management. 3. Dr. Mccurdy for medical management. 4. Dr. Steward for inpatient rehab management. 5. Dr. Best for urology management, urine retention. DISCHARGE INSTRUCTIONS: 1. No driving for 4 weeks, or until physician gives their ok. 2. The patient should sleep in their own bed, no medical bed needed. 3. Stairs are not an issue. If the bedroom is upstairs, it is advised that the patient go up at night and down in the morning for the first week. Go slowly, using handrail and take 1 step at a time. 4. GLORIA hose are to be worn for 30 days or until physician discontinues. 5. Heart hugger is to be worn 100% of the time until physician discontinues.(except when showering) 6. No lifting, pushing, or pulling more than 10 pounds for 12 weeks. The physician will advise of any restriction changes. 7. The patient is expected to continue the prescribed walking program. 8. Continue pain control per as needed orders. 9. Continue with incentive spirometry and splinting/heart hugger until otherwise directed by the physician. 10. Must shower daily using liquid antibacterial soap and a separate white washcloth for each individual incision. 11. Routine sternal incision care. No powders, lotions, ointments on incisions. No dressings are necessary on incisions unless they are draining. Dermabond tape is to remain on sternal incision until surgeon follow-up. 12. Please call surgeon/MED AIDE for temp greater than 101 F or purulent drainage from incisions. 13. A Red armband has been placed on the patient. It should be worn for 30 days post surgery and will be removed by the cardiac surgeons. If an ER visit is necessary, please make sure the number on the Red armband is called. 14. You have been referred to and are expected to begin Cardiac Rehab in approximately 4-6 weeks. REHAB/HOME HEALTH SERVICES TO PROVIDE: RN SKILLED HOME CARE SERVICES FOR POST-OP SURGICAL PATIENTS WITH THE FOLLOWI NG: Coronary Artery Bypass Surgery (CABG), Mitral Valve Replacement/Repair ( MVR), Aortic Valve Replacement/Repair (AVR) RN TO CONTINUE EDUCATION FROM ``ROAD TO A HEALTH HEART PATIENT EDUCATION MANUAL (GIVEN TO PATIENT IN THE HOSPITAL) MEDICATION RECONCILIATION WITH EDUCATION NEEDED ON FIRST HOME VISIT EMPHASIZE IMPORTANCE OF WEARING BREAST SUPPORT/HEART HUGGER ENCOURAGE USE OF INCENTIVE SPIROMETER 10 X EVERY HOUR WHILE AWAKE ENCOURAGE UTILIZATION OF LOWER EXTREMITY COMPRESSION STOCKINGS/GLORIA HOSE and ELEVATE LEGS ABOVE LEVEL OF HEART WHILE AT REST. ENCOURAGE AMBULATION 3-5x/day INCREASING TOLERATES, WHILE AVOIDING EXTREMES IN TEMPERATURE HOME CARE ONCE DISCHARGED FROM REHAB: FREQUENCY: RN TO OPEN THE PATIENT WITHIN 24 HOURS OF DISCHARGE FROM REHAB WITH TELEHEALTH INSTALLED AT [facility] [place], RN TO VISIT 2-3 X A WEEK FOR 4 WEEKS ESTABLISHED BY PATIENT NEEDS. LABORATORY: CBC, CMP TO BE DRAWN PER FACILITY PROTOCOL, FAX RESULTS TO [phone]. PARAMETERS TO CALL SURGEON: WEIGHT: NOTIFY MD OF WEIGHT GAIN OF 2 LBS IN 24 HOURS OR 5 LBS IN ONE WEEK HR: NOTIFY MD OF HR <55 BPM OR HR>100 BPM BP: NOTIFY MD IF BP <90/55 OR BP>140/100 O2 SAT: NOTIFY MD IF PO2<93% ON ROOM AIR For any questions or concerns please call product marketing executive Sho @ or Don @ The patient will not be discharged on a SHAYY inhibitor at this time due to some episodes of hypotension postoperatively. This will be followed on an outpatient basis. The patient will be discharged on an amiodarone taper. Amiodarone 400 mg by mouth twice a day until 04/23/2020, then decrease to amiodarone 200 mg by mouth twice a day 7 days, then decrease amiodarone 200 mg by mouth daily 7 days then discontinue. The patient will also be discharged on Norvasc 2.5 mg by mouth daily for radial artery spasm prophylaxis. May hold for systolic blood pressure less than 100 mmHg. Please do not discontinue until checking with cardiothoracic surgery service. Plan - Discharge Summary Discharge Rx Participant: Yes New Discharge Prescriptions: New Aspirin 81 mg PO DAILY chew Amiodarone [Cordarone] 400 mg PO BID tab Apixaban [Eliquis] 5 mg PO BID tab Tamsulosin [Flomax] 0.4 mg PO BID cap.er.24h Ferrous Sulfate [Iron (65 MG Elemental)] 325 mg PO BID-W/MEALS tab Atorvastatin [Lipitor] 40 mg PO DAILY tab Metoprolol Tartrate [Lopressor] 25 mg PO TID tab Multivitamins, Thera [Multivitamin (formulary)] 1 each PO DAILY tab amLODIPine [Norvasc] 2.5 mg PO DAILY@1200 tab Pantoprazole [Protonix] 40 mg PO AC-BRKFST tablet.dr Barrientos-Docusate Sodium [Senokot-S] 2 each PO HS tab Acetaminophen Tab [Tylenol] 1,000 mg PO Q6HR PRN tab PRN Reason: Fever And/ Or Pain Ascorbic Acid [Vitamin C] 500 mg PO BID-W/MEALS tab Discontinued Tamsulosin [Flomax] 0.4 mg PO DAILY Multivitamins, Thera [Multivitamin (formulary)] 2 tab PO DAILY Antioxident 1 tab PO DAILY Mupirocin 2% Oint [Bactroban 2% Oint] 1 applic NASAL BID #1 tube Atorvastatin [Lipitor] 80 mg PO DAILY Aspirin 81 mg PO DAILY Metoprolol Tartrate [Lopressor] 12.5 mg PO DAILY Aspirin 364 mg PO ONCE Discharge Medication List Acetaminophen Tab [Tylenol] 1,000 mg PO Q6HR PRN tab 04/19/20 [Rx] Amiodarone [Cordarone] 400 mg PO BID tab 04/19/20 [Rx] Apixaban [Eliquis] 5 mg PO BID tab 04/19/20 [Rx] Ascorbic Acid [Vitamin C] 500 mg PO BID-W/MEALS tab 04/19/20 [Rx] Aspirin 81 mg PO DAILY chew 04/19/20 [Rx] Atorvastatin [Lipitor] 40 mg PO DAILY tab 04/19/20 [Rx] Ferrous Sulfate [Iron (65 MG Elemental)] 325 mg PO BID-W/MEALS tab 04/19/20 [Rx] Metoprolol Tartrate [Lopressor] 25 mg PO TID tab 04/19/20 [Rx] Multivitamins, Thera [Multivitamin (formulary)] 1 each PO DAILY tab 04/19/20 [Rx] Pantoprazole [Protonix] 40 mg PO AC-BRKFST tablet. 04/19/20 [Rx] Sennosides-Docusate Sodium [Senokot-S] 2 each PO HS tab 04/19/20 [Rx] Tamsulosin [Flomax] 0.4 mg PO BID cap.er.24h 04/19/20 [Rx] amLODIPine [Norvasc] 2.5 mg PO DAILY@1200 tab 04/19/20 [Rx] Follow up Appointment(s)/Referral(s): Zee Knowles MD [STAFF PHYSICIAN] - 2 Weeks [facility],Cardiac [NON-STAFF] - 4 Weeks (You will receive a call for evaluation for cardiac rehab at 4-6 weeks post surgery) Charles Olivo MD [STAFF PHYSICIAN] - 4 Weeks Telly Mccurdy MD [Primary Care Provider] - 2 Weeks [facility], [NON-STAFF] - 1-2 Days Lee Vasquez MD [STAFF PHYSICIAN] - 2 Weeks Ambulatory/Diagnostic Orders: Complete Blood Count w/diff [LAB.AMB] Time Frame: 04/21/20, Facility: [facility], Location: Laboratory [facility] Comprehensive Metabolic Panel [LAB.AMB] Time Frame: 04/21/20, Facility: [facility], Location: Laboratory [facility] Activity/Diet/Wound Care/Special Instructions: DISCHARGE INSTRUCTIONS: 1. No driving for 4 weeks, or until physician gives their ok. 2. The patient should sleep in their own bed, no medical bed needed. 3. Stairs are not an issue. If the bedroom is upstairs, it is advised that the patient go up at night and down in the morning for the first week. Go slowly, using handrail and take 1 step at a time. 4. GLORIA hose are to be worn for 30 days or until physician discontinues. 5. Heart hugger is to be worn 100% of the time until physician discontinues.(except when showering) 6. No lifting, pushing, or pulling more than 10 pounds for 12 weeks. The physician will advise of any restriction changes. 7. The patient is expected to continue the prescribed walking program. 8. Continue pain control per as needed orders. 9. Continue with incentive spirometry and splinting/heart hugger until otherwise directed by the physician. 10. Must shower daily using liquid antibacterial soap and a separate white washcloth for each individual incision. 11. Routine sternal incision care. No powders, lotions, ointments on incisions. No dressings are necessary on incisions unless they are draining. Dermabond tape is to remain on sternal incision until surgeon follow-up. 12. Please call surgeon/MED AIDE for temp greater than 101 F or purulent drainage from incisions. 13. A Red armband has been placed on the patient. It should be worn for 30 days post surgery and will be removed by the cardiac surgeons. If an ER visit is necessary, please make sure the number on the Red armband is called. 14. You have been referred to and are expected to begin Cardiac Rehab in approximately 4-6 weeks. REHAB/HOME HEALTH SERVICES TO PROVIDE: RN SKILLED HOME CARE SERVICES FOR POST-OP SURGICAL PATIENTS WITH THE FOLLOWING: Coronary Artery Bypass Surgery (CABG), Mitral Valve Replacement/Repair ( MVR), Aortic Valve Replacement/Repair (AVR) RN TO CONTINUE EDUCATION FROM ``ROAD TO A HEALTH HEART PATIENT EDUCATION MANUAL (GIVEN TO PATIENT IN THE HOSPITAL) MEDICATION RECONCILIATION WITH EDUCATION NEEDED ON FIRST HOME VISIT EMPHASIZE IMPORTANCE OF WEARING BREAST SUPPORT/HEART HUGGER ENCOURAGE USE OF INCENTIVE SPIROMETER 10 X EVERY HOUR WHILE AWAKE ENCOURAGE UTILIZATION OF LOWER EXTREMITY COMPRESSION STOCKINGS/GLORIA HOSE and ELEVATE LEGS ABOVE LEVEL OF HEART WHILE AT REST. ENCOURAGE AMBULATION 3-5x/day INCREASING TOLERATES, WHILE AVOIDING EXTREMES IN TEMPERATURE HOME CARE ONCE DISCHARGED FROM REHAB: FREQUENCY: RN TO OPEN THE PATIENT WITHIN 24 HOURS OF DISCHARGE FROM REHAB WITH TELEHEALTH INSTALLED AT [facility] [place], RN TO VISIT 2-3 X A WEEK FOR 4 WEEKS ESTABLISHED BY PATIENT NEEDS. LABORATORY: CBC, CMP TO BE DRAWN PER FACILITY PROTOCOL, FAX RESULTS TO [phone]. PARAMETERS TO CALL SURGEON: WEIGHT: NOTIFY MD OF WEIGHT GAIN OF 2 LBS IN 24 HOURS OR 5 LBS IN ONE WEEK HR: NOTIFY MD OF HR <55 BPM OR HR>100 BPM BP: NOTIFY MD IF BP <90/55 OR BP>140/100 O2 SAT: NOTIFY MD IF PO2<93% ON ROOM AIR For any questions or concerns please call product marketing executive Sho @ or Karan @ Discharge Disposition: OTHER INSTITUTION NOT DEFINED
[2020-04-19 16:08] VITALS: BP 98/60; PULSE 89; RESP 24; TEMP 98.1
[2020-04-19 16:52] LABS: Glucose,Whole Blood 165 mg/dL (75-99)
--- NOTE | 2020-04-20 23:38 | CDI ---
Documentation Clarification Form Date: 04/21/2020 From: Arvin Knowles Phone: If you have a question about this query, please contact Lise Pagan, Paring Machine Operator at [phone] between 8am and 5pm. Admit Date: 04/13/2020 Discharge Date: 04/19/2020 Patient Name: Anatoly Pereyra Visit Number: [id number] ATTENTION: The Clinical Documentation Specialists (CDI) and [facility] Coding Staff appreciate your assistance in clarifying documentation. Please respond to the clarification below the line at the bottom and electronically sign. The CDI & [facility] Coding staff will review the response and follow-up if needed. Please note: Queries are made part of the Legal Health Record. If you have any questions, please contact the author of this message via ITS. Dear Charles Berg., CHF is documented in the Dischage sumary as "Chronic systolic heart failure". History/Risk Factors: HTN, Atrail fibrillation,Hyperlipidemia Clinical Indicators: Pleural effusion, SOB, post-op changes. BNP: NA Echocardiogram Results: preoperative EF 30-45% Chest X Ray: 04/16 Persistent small right pleural effusion. 04/18 Bilateral infiltrate and pleural effusion correlate for mild CHF otherwise consider pneumonia Treatment: 04/14, 04/15 IV Lasix 20 mg IV push Monitor the output from the chest tube Continue using incentive spirometer. In your professional opinion, can you please clarify the acuity of CHF if known? Systolic Heart Failure: Acute Chronic Acute on Chronic chronic CHF MTDD
== END 2020-04-19 18:50 | DRG 236 ==
LOC: 2ORMAIN 04-13 05:36 → 2SICU 04-13 15:54
PROVIDERS: ADMIT Surgery; ATTEND Surgery
PROC: 5A1935Z Respiratory Ventilation, Less than 24 Consecutive Hours (ICD-10-PCS; 2020-04-13)
PROC: 0BH17EZ Insertion of Endotracheal Airway into Trachea, Via Natural or Artificial Opening (ICD-10-PCS; 2020-04-13)
PROC: B24BZZ4 Ultrasonography of Heart with Aorta, Transesophageal (ICD-10-PCS; principal; 2020-04-13 08:00)
PROC: 02L70CK Occlusion of Left Atrial Appendage with Extraluminal Device, Open Approach (ICD-10-PCS; principal; 2020-04-13 08:00)
PROC: 06BQ4ZZ Excision of Left Saphenous Vein, Percutaneous Endoscopic Approach (ICD-10-PCS; principal; 2020-04-13 08:00)
PROC: 02100Z9 Bypass Coronary Artery, One Artery from Left Internal Mammary, Open Approach (ICD-10-PCS; principal; 2020-04-13 08:00)
PROC: 02100AW Bypass Coronary Artery, One Artery from Aorta with Autologous Arterial Tissue, Open Approach (ICD-10-PCS; principal; 2020-04-13 08:00)
PROC: 03BC4ZZ Excision of Left Radial Artery, Percutaneous Endoscopic Approach (ICD-10-PCS; principal; 2020-04-13 08:00)
PROC: 021109W Bypass Coronary Artery, Two Arteries from Aorta with Autologous Venous Tissue, Open Approach (ICD-10-PCS; principal; 2020-04-13 08:00)
PROC: 30233K1 Transfusion of Nonautologous Frozen Plasma into Peripheral Vein, Percutaneous Approach (ICD-10-PCS; 2020-04-13 08:00)
PROC: 30233R1 Transfusion of Nonautologous Platelets into Peripheral Vein, Percutaneous Approach (ICD-10-PCS; 2020-04-13 08:00)
PROC: 4A133B1 Monitoring of Arterial Pressure, Peripheral, Percutaneous Approach (ICD-10-PCS; 2020-04-13 08:00)
PROC: 4A133J1 Monitoring of Arterial Pulse, Peripheral, Percutaneous Approach (ICD-10-PCS; 2020-04-13 08:00)
PROC: 03HY32Z Insertion of Monitoring Device into Upper Artery, Percutaneous Approach (ICD-10-PCS; 2020-04-13 08:00)
PROC: 5A2204Z Restoration of Cardiac Rhythm, Single (ICD-10-PCS; 2020-04-19)
DX: I25.10 Atherosclerotic heart disease of native coronary artery without angina pectoris (principal); I50.22 Chronic systolic (congestive) heart failure; D62 Acute posthemorrhagic anemia; I48.92 Unspecified atrial flutter; I48.0 Paroxysmal atrial fibrillation; I11.0 Hypertensive heart disease with heart failure; M19.90 Unspecified osteoarthritis, unspecified site; E78.5 Hyperlipidemia, unspecified; Z96.651 Presence of right artificial knee joint; E11.65 Type 2 diabetes mellitus with hyperglycemia; R33.8 Other retention of urine; I77.819 Aortic ectasia, unspecified site; N40.1 Benign prostatic hyperplasia with lower urinary tract symptoms; Z95.5 Presence of coronary angioplasty implant and graft; I25.2 Old myocardial infarction; Z90.89 Acquired absence of other organs; Z98.890 Other specified postprocedural states; Z98.42 Cataract extraction status, left eye; Z98.41 Cataract extraction status, right eye; Z87.891 Personal history of nicotine dependence; Z79.899 Other long term (current) drug therapy; Z79.82 Long term (current) use of aspirin; Z79.02 Long term (current) use of antithrombotics/antiplatelets; Z79.01 Long term (current) use of anticoagulants; Z88.5 Allergy status to narcotic agent; Z87.01 Personal history of pneumonia (recurrent); Z82.49 Family history of ischemic heart disease and other diseases of the circulatory system
CPT/HCPCS: 36415; 71045; 71046; 80048; 80053; 82330; 82805; 83010; 83540; 83550; 83735; 85025; 85027; 85045; 85384; 85520; 85610; 85730; 86850; 86891; 86900; 86901; 86920; 92960; 93312; 93325; 94002; 94640

== ENCOUNTER → 2020-04-10 | Outpatient (CLI) | payer MEDICARE | LOC: LABWHC1 09:54 | PROVIDERS: ATTEND Surgery | DX: Z53.9 Procedure and treatment not carried out, unspecified reason (principal) ==

== ENCOUNTER 2020-05-06 14:28 | Inpatient (IN) | payer MEDICARE ==
[2020-05-06] MEDS ORDERED: ALBUTEROL NEBULIZED 2.5 MG/3 ML INHALATION PRN (18:40)
[2020-05-06] MEDS ORDERED: ALPRAZolam 0.25 MG TAB PO PRN (18:41)
[2020-05-06] MEDS ORDERED: BENZONATATE 100 MG CAP PO PRN (18:44)
[2020-05-06] MEDS ORDERED: NITROGLYCERIN SL TABS 0.4 MG TAB SUBLINGUAL PRN (18:48)
[2020-05-06] MEDS ORDERED: VANCOMYCIN IV PER PHARMACY 1 EACH MISC MISCELLANE PRN (19:06)
[2020-05-06] MEDS ORDERED: VANCOMYCIN 1,500 MG in SODIUM CHLORIDE 0.9% 250 ML IVPB ONE (19:30)
[2020-05-06 19:37] LABS: Albumin 2.6 g/dL (3.5-5.0); C Reactive Protein 27.2 mg/L (<10.0); Potassium 4.1 mmol/L (3.5-5.1); Total Bilirubin 0.5 mg/dL (0.2-1.3)
[2020-05-06 19:39] LABS: Anisocytosis Slight; Basophils # (A) 0.1 k/uL (0-0.2); Basophils % (A) 1 %; Eosinophils # (A) 0.8 k/uL (0-0.7); Eosinophils % (A) 11 %; HCT 26.3 % (39.0-53.0); HGB 8.1 gm/dL (13.0-17.5); Hypochromasia Marked; Lymphocytes # (A) 1.5 k/uL (1.0-4.8); Lymphocytes % (A) 18 %; MCH 30.6 pg (25.0-35.0); MCHC 30.7 g/dL (31.0-37.0); MCV 99.7 fL (80.0-100.0); Macrocytosis Moderate; Mean Platelet Volume 9.2; Monocytes # (A) 0.3 k/uL (0-1.0); Monocytes % (A) 4 %; Neutrophils % (A) 64 %; Platelet Count 571 k/uL (150-450); Poikilocytosis Slight; RBC 2.64 m/uL (4.30-5.90); RDW 18.6 % (11.5-15.5); WBC 7.9 k/uL (3.8-10.6)
[2020-05-06] MEDS: BUDESONIDE 0.5 MG/2 ML NEBU INHALATION SCH ×2 (20:00→20:18)
[2020-05-06 20:04] LABS: Large Platelets Present
[2020-05-06 20:14] LABS: Erythrocyte Sedimentation Rate 67 mm/hr (0-15)
[2020-05-06] MEDS: FUROSEMIDE 10 MG/ML 4 ML VIAL IV SCH (20:36)
[2020-05-06] MEDS: APIXABAN 5 MG TAB PO SCH (20:37)
[2020-05-06] MEDS: ASCORBIC ACID 500 MG TAB PO SCH (20:37)
[2020-05-06] MEDS: METOPROLOL TARTRATE 12.5 MG TAB PO SCH (20:37)
[2020-05-06] MEDS: ATORVASTATIN 40 MG TAB PO SCH (20:37)
[2020-05-06] MEDS: TAMSULOSIN 0.4 MG CAP.ER.24H PO SCH (20:37)
[2020-05-06] MEDS: SENNOSIDES-DOCUSATE SODIUM 1 EACH TAB PO SCH (20:38)
[2020-05-06] MEDS: ACETAMINOPHEN TAB 500 MG TAB PO PRN (20:38)
[2020-05-06] MEDS ORDERED: CEFEPIME 2 GM in SODIUM CHLORIDE 0.9% 100 ML IVPB ONE (21:00)
[2020-05-06] MEDS: FINASTERIDE 5 MG TAB PO SCH (21:26)
[2020-05-07] MEDS: PANTOPRAZOLE 40 MG TABLET PO SCH (06:14)
[2020-05-07] MEDS: FERROUS SULFATE 325 MG TAB PO SCH ×2 (06:14→17:28)
[2020-05-07] MEDS: MIDODRINE 5 MG TAB PO SCH ×2 (06:14→17:28)
[2020-05-07 07:48] LABS: ALT 47 U/L (4-49); AST 35 U/L (17-59); African American GFR (CKD) >90 (>60 ml/min/1.73 sqM); Albumin 2.5 g/dL (3.5-5.0); Alkaline Phosphatase 72 U/L (38-126); Anion Gap 2 mmol/L; Blood Urea Nitrogen 24 mg/dL (9-20); Calcium 8.2 mg/dL (8.4-10.2); Carbon Dioxide 35 mmol/L (22-30); Chloride 98 mmol/L (98-107); Glucose 94 mg/dL (74-99); Magnesium 2.1 mg/dL (1.6-2.3); Non-African American GFR(CKD) 82 (>60 ml/min/1.73 sqM); Potassium 4.3 mmol/L (3.5-5.1); Sodium 135 mmol/L (137-145); Total Bilirubin 0.6 mg/dL (0.2-1.3)
[2020-05-07 07:58] LABS: Anisocytosis Slight; HCT 26.4 % (39.0-53.0); HGB 7.9 gm/dL (13.0-17.5); Hypochromasia Marked; MCH 30.4 pg (25.0-35.0); MCHC 30.1 g/dL (31.0-37.0); MCV 100.9 fL (80.0-100.0); Macrocytosis Moderate; Mean Platelet Volume 9.1; Platelet Count 541 k/uL (150-450); Poikilocytosis Slight; RBC 2.61 m/uL (4.30-5.90); RDW 18.5 % (11.5-15.5); WBC 7.8 k/uL (3.8-10.6)
--- NOTE | 2020-05-07 08:19 | XR ---
EXAMINATION TYPE: XR chest 2V DATE OF EXAM: 05/07/2020 COMPARISON: 04/19/2020 INDICATION: Post cardiac surgery TECHNIQUE: Frontal and lateral views of the chest are obtained. FINDINGS: The heart size is moderately prominent. The pulmonary vasculature is normal. There is a small left pleural effusion. Minimal right pleural effusion is present. These are stable. Sternotomy wires are present from prior cardiac surgery.. IMPRESSION: 1. Small bilateral pleural effusions, stable. 2. Cardiomegaly.
[2020-05-07] MEDS: BUDESONIDE 0.5 MG/2 ML NEBU INHALATION SCH ×2 (08:29→20:18)
[2020-05-07 08:34] LABS: Eosinophils # (M) 1.01 k/uL (0-0.7); Lymphocytes # (M) 0.86 k/uL (1.0-4.8); Monocytes # (M) 0.55 k/uL (0-1.0); Neutrophils # (M) 5.38 k/uL (1.3-7.7); Neutrophils % (M) 69 %; Nucleated Red Blood Cells 0 /100 WBC (0-0); Total Cells Counted 100
[2020-05-07 08:35] LABS: Stomatocytes Present; Target Cells Present
[2020-05-07] MEDS: AMIODARONE 200 MG TAB PO SCH (09:15)
[2020-05-07] MEDS: METOPROLOL TARTRATE 12.5 MG TAB PO SCH ×2 (09:15→20:25)
[2020-05-07] MEDS: TAMSULOSIN 0.4 MG CAP.ER.24H PO SCH ×2 (09:15→20:25)
[2020-05-07] MEDS: ASCORBIC ACID 500 MG TAB PO SCH ×2 (09:15→20:25)
[2020-05-07] MEDS: FUROSEMIDE 10 MG/ML 4 ML VIAL IV SCH ×2 (09:15→20:25)
[2020-05-07] MEDS: MULTIVITAMINS, THERA 1 EACH TAB PO SCH (09:15)
[2020-05-07] MEDS: FINASTERIDE 5 MG TAB PO SCH (09:15)
[2020-05-07] MEDS: CEFEPIME 2 GM in SODIUM CHLORIDE 0.9% 100 ML IVPB SCH ×2 (09:19→20:25)
--- NOTE | 2020-05-07 09:56 | P.GSCN ---
History of Present Illness Consult date: 05/07/20 Reason for Consult: Sternal incision infection Requesting physician: Joaquín Mcdowell History of present illness: This is a 79-year-old gentleman who follows on an outpatient basis with Dr. Mccurdy. 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 He had a positive stress test in February and was recommended to undergo heart catheterization which was completed in March. This demonstrated 80% stenosis to the proximal LAD, 70% stenosis to the mid LAD, 90% stenosis to the circumflex coronary artery, and 95% stenosis to the right coronary artery. Subsequently he was recommended to undergo CABG which was completed 04/13/2020. He did experience postoperative atrial fibrillation/atrial flutter and was placed on amiodarone and Eliquis; in addition he underwent synchronized cardioversion with return to normal sinus rhythm. He also experienced urinary retention requiring replacement of his Grimm catheter, and acute blood loss anemia treated with blood transfusion. Otherwise he had an uneventful hospitalization and was discharged to [facility] inpatient rehab on postoperative day #6 for physical and occupational therapy. He was progressing as expected at [facility] and was expected to be discharged to home with home care this last Friday. Unfortunately Friday night he developed shortness of breath and oxygen desaturation and was felt to be in acute heart failure. He was transferred to the intensive care unit. Reportedly he had a fever and elevated white blood cell count which was felt to be urinary in origin. Fernández cultures were drawn with resultant gram-negative bacteremia with Serratia. He was placed on IV cefepime per Dr. Chris. He was given IV Lasix with excellent diuresis. Transthoracic echocardiogram was completed May 03 demonstrating EF 50% without pericardial or pleural effusion. Thoracentesis was performed by pulmonology for suspected pleural effusions, however Dr. Martinez was only able to remove 5 mL of fluid from the left side. He was started on Midodrine for hypotension, and he did receive 1 unit of packed red blood cells on May 04 for hemoglobin of 6.8. He was noticed to have increased redness and small areas of fluid pockets along his sternal incision and was subsequently brought here yesterday for cardiothoracic surgery evaluation. Of note the patient states he asked to shower at [facility] and was only a llowed to shower twice despite orders for patient to shower daily. Review of Systems Review of systems was completed and was negative except as noted - Respiratory Respiratory Comment(s): Denies shortness of breath currently but did admit to shortness of breath at [facility] - Integumentary Reports as per HPI, Reports wounds Past Medical History Past Medical History: Coronary Artery Disease (CAD), Hyperlipidemia, Hypertension, Myocardial Infarction ([place]), Osteoarthritis (OA) Additional Past Medical History / Comment(s): fatigues easily Last Myocardial Infarction Date:: 2001 History of Any Multi-Drug Resistant Organisms: None Reported Past Surgical History: Coronary Bypass/CABG, Heart Catheterization With Stent, Hernia Repair, Joint Replacement, Tonsillectomy Additional Past Surgical History / Comment(s): Precancerous skin lesion removed, right knee replacement, cyst removed, bilateral cataracts removed. Bare-metal stent placed to the RCA in February 2002; 4 vessel CABG 04/13/2020 Past Anesthesia/Blood Transfusion Reactions: No Reported Reaction Date of Last Stent Placement:: 2001 Past Psychological History: No Psychological Hx Reported Smoking Status: Former smoker Past Alcohol Use History: Rare Additional Past Alcohol Use History / Comment(s): quit smoking 30-35 yrs. ago, started @age 13, up to 3ppd, quit in late 70's Past Drug Use History: None Reported - Past Family History Father Family Medical History: Cancer Mother Family Medical History: Cancer Medications and Allergies Home Medications Medication Instructions Recorded Confirmed Type Acetaminophen Tab [Tylenol] 1,000 mg PO Q6HR PRN tab 04/19/20 05/06/20 Rx Apixaban [Eliquis] 5 mg PO BID tab 04/19/20 05/06/20 Rx Ascorbic Acid [Vitamin C] 500 mg PO BID-W/MEALS tab 04/19/20 05/06/20 Rx Atorvastatin [Lipitor] 40 mg PO DAILY tab 04/19/20 05/06/20 Rx Ferrous Sulfate [Iron (65 MG 325 mg PO BID-W/MEALS tab 04/19/20 05/06/20 Rx Elemental)] Multivitamins, Thera [Multivitamin 1 each PO DAILY tab 04/19/20 05/06/20 Rx (formulary)] Pantoprazole [Protonix] 40 mg PO AC-BRKFST tablet. 04/19/20 05/06/20 Rx Sennosides-Docusate Sodium 2 each PO HS tab 04/19/20 05/06/20 Rx [Senokot-S] Tamsulosin [Flomax] 0.4 mg PO BID cap.er.24h 04/19/20 05/06/20 Rx amLODIPine [Norvasc] 2.5 mg PO DAILY@1200 tab 04/19/20 05/06/20 Rx Amiodarone [Cordarone] See Taper PO DIRECTED 05/06/20 05/06/20 History Metoprolol Tartrate [Lopressor] 12.5 mg PO BID 05/06/20 05/06/20 History Allergies Allergy/AdvReac Type Severity Reaction Status Date / Time codeine Allergy Headache/brain Verified 05/06/20 19:54 swelling Surgical - Exam Vital Signs Temp Pulse Resp BP Pulse Ox 98.6 F 68 16 113/68 98 05/06/20 17:08 05/06/20 17:08 05/06/20 17:08 05/06/20 17:08 05/06/20 17:08 - General well developed, well nourished, no distress, no pain - Eyes normal ocular movement - ENT no hearing loss - Neck no masses, no bruits, trachea midline - Respiratory Lungs sounds diminished bilaterally. Respirations even, nonlabored. Currently on room air with oxygen saturation 96%. Able to achieve 750-1000 mL on his incentive spirometry. Strong cough. - Cardiovascular S1, S2 present. Regular rate and rhythm, sinus rhythm on telemetry. Sternum stable. Palpable peripheral pulses bilaterally. 2+ bilateral lower extremity edema present. Heart hugger placed patient demonstrating appropriate use. Left leg Jair wrapped. SCDs present. - Abdomen Abdomen: soft, non tender, bowel sounds - Genitourinary Grimm present draining clear, yellow urine. - Rectum Deferred - Integumentary Skin is warm and dry with evidence of good perfusion. Anterior chest incision approximated, reddened, small fluid-filled sacs present - Neurologic normal coordination, normal sensation - Musculoskeletal normal posture - Psychiatric oriented to time, oriented to person, oriented to place, speech is normal, memory intact Results - Labs 05/07/20 07:16 05/07/20 07:16 Abnormal Lab Results - Last 24 Hours (Table) 05/06/20 05/06/20 05/07/20 Range/Units 18:53 18:53 07:16 RBC 2.64 L 2.61 L (4.30-5.90) m/uL Hgb 8.1 L 7.9 L (13.0-17.5) gm/dL Hct 26.3 L 26.4 L (39.0-53.0) % MCV 100.9 H (80.0-100.0) fL MCHC 30.7 L 30.1 L (31.0-37.0) g/dL RDW 18.6 H 18.5 H (11.5-15.5) % Plt Count 571 H 541 H (150-450) k/uL Lymphocytes # (Manual) 0.86 L (1.0-4.8) k/uL Eosinophils # 0.8 H (0-0.7) k/uL Eosinophils # (Manual) 1.01 H (0-0.7) k/uL ESR 67 H (0-15) mm/hr Sodium 134 L (137-145) mmol/L Chloride 96 L (98-107) mmol/L Carbon Dioxide 33 H (22-30) mmol/L BUN 30 H (9-20) mg/dL Glucose 149 H (74-99) mg/dL Calcium 8.0 L (8.4-10.2) mg/dL C-Reactive Protein 27.2 H (<10.0) mg/L Total Protein 5.0 L (6.3-8.2) g/dL Albumin 2.6 L (3.5-5.0) g/dL 05/07/20 Range/Units 07:16 RBC (4.30-5.90) m/uL Hgb (13.0-17.5) gm/dL Hct (39.0-53.0) % MCV (80.0-100.0) fL MCHC (31.0-37.0) g/dL RDW (11.5-15.5) % Plt Count (150-450) k/uL Lymphocytes # (Manual) (1.0-4.8) k/uL Eosinophils # (0-0.7) k/uL Eosinophils # (Manual) (0-0.7) k/uL ESR (0-15) mm/hr Sodium 135 L (137-145) mmol/L Chloride (98-107) mmol/L Carbon Dioxide 35 H (22-30) mmol/L BUN 24 H (9-20) mg/dL Glucose (74-99) mg/dL Calcium 8.2 L (8.4-10.2) mg/dL C-Reactive Protein (<10.0) mg/L Total Protein 5.0 L (6.3-8.2) g/dL Albumin 2.5 L (3.5-5.0) g/dL Diabetes panel 05/06/20 05/07/20 Range/Units 18:53 07:16 Sodium 134 L 135 L (137-145) mmol/L Potassium 4.1 4.3 (3.5-5.1) mmol/L Chloride 96 L 98 (98-107) mmol/L Carbon Dioxide 33 H 35 H (22-30) mmol/L BUN 30 H 24 H (9-20) mg/dL Creatinine 1.10 0.89 (0.66-1.25) mg/dL Glucose 149 H 94 (74-99) mg/dL Calcium 8.0 L 8.2 L (8.4-10.2) mg/dL AST 37 35 (17-59) U/L ALT 46 47 (4-49) U/L Alkaline Phosphatase 72 72 (38-126) U/L Total Protein 5.0 L 5.0 L (6.3-8.2) g/dL Albumin 2.6 L 2.5 L (3.5-5.0) g/dL Calcium panel 05/06/20 05/07/20 Range/Units 18:53 07:16 Calcium 8.0 L 8.2 L (8.4-10.2) mg/dL Albumin 2.6 L 2.5 L (3.5-5.0) g/dL Pituitary panel 05/06/20 05/07/20 Range/Units 18:53 07:16 Sodium 134 L 135 L (137-145) mmol/L Potassium 4.1 4.3 (3.5-5.1) mmol/L Chloride 96 L 98 (98-107) mmol/L Carbon Dioxide 33 H 35 H (22-30) mmol/L BUN 30 H 24 H (9-20) mg/dL Creatinine 1.10 0.89 (0.66-1.25) mg/dL Glucose 149 H 94 (74-99) mg/dL Calcium 8.0 L 8.2 L (8.4-10.2) mg/dL Adrenal panel 05/06/20 05/07/20 Range/Units 18:53 07:16 Sodium 134 L 135 L (137-145) mmol/L Potassium 4.1 4.3 (3.5-5.1) mmol/L Chloride 96 L 98 (98-107) mmol/L Carbon Dioxide 33 H 35 H (22-30) mmol/L BUN 30 H 24 H (9-20) mg/dL Creatinine 1.10 0.89 (0.66-1.25) mg/dL Glucose 149 H 94 (74-99) mg/dL Calcium 8.0 L 8.2 L (8.4-10.2) mg/dL Total Bilirubin 0.5 0.6 (0.2-1.3) mg/dL AST 37 35 (17-59) U/L ALT 46 47 (4-49) U/L Alkaline Phosphatase 72 72 (38-126) U/L Total Protein 5.0 L 5.0 L (6.3-8.2) g/dL Albumin 2.6 L 2.5 L (3.5-5.0) g/dL - Imaging Chest x-ray: report reviewed, image reviewed CT scan - chest: report reviewed, image reviewed Assessment and Plan Assessment: 1. Sternal incision infection, likely superficial 2. History of coronary artery disease, status post remote inferior wall MN with RCA stent, status post four-vessel CABG 04/15/2020, with postoperative acute blood loss anemia status post transfusion, atrial fibrillation/flutter status post clip ligation of the left atrial appendage and cardioversion, urinary retention with Grimm catheter replacement 3. Mild to moderate left ventricular dysfunction, chronic systolic heart failure, preoperative EF 40-45%, EF 50% and TTE 05/03 4. Mild mitral valve regurgitation 5. Moderately dilated ascending aorta 4.2 cm 6. History of hypertension 7. Hyperlipidemia 8. Previous tobacco dependence 9. Remote history of pneumonia 10. BPH 11. Family history of premature coronary artery disease Plan: The patient was seen and examined at the bedside. Chart/diagnostics were reviewed. The case was discussed in detail with Dr. Olivo who will see the patient today. We will open up his incision at the bedside and clean and pack the area. Reportedly wound cultures were sent at [facility], will review when culture data present. Dr. Chris from infectious disease has been consulted and was following the patient at [facility]. Red area was outlined and has not increased in size, the patient remains afebrile, white blood cell count is currently normal. Continue statin, beta branden therapy. Aspirin was stopped while at [facility]. Continue Eliquis for anticoagulation continue amiodarone 200 mg daily by mouth for another week and then discontinue per taper orders. Bronchodilators, inhaled steroids per pulmonology which the patient is refusing at this time. Increase activity, ambulate as tolerated. PT ordered. Daily weights and strict accurate intake and output. Continue IV Lasix. Continue iron/vitamin C. Continue Flomax/Proscar for urinary retention. Continue postoperative lifting restrictions. Will monitor daily labs and x-rays. More recommendations to romelia sherwood. Thank you for this consult. We look forward to working with you in the care of our patient. Time with Patient: Greater than 30
[2020-05-07] MEDS: APIXABAN 5 MG TAB PO SCH (11:37)
--- NOTE | 2020-05-07 11:58 | P.CNPUL ---
History of Present Illness Consult date: 05/07/20 Reason for consult: chest pain History of present illness: 79-year-old male patient whom I transferred from [facility] to [facility] due to a complication of a surgical abdominal wound infection. The patient was seen on the medical floor and the [facility] and there thoracotomy scar was obviously infected erythematous and red and was draining. I was able to squeeze out some purulent material. Discussed the case with ID and I made to transfer to [facility]. 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 He had a positive stress test in February and was recommended to undergo heart catheterization which was completed in March. This demonstrated 80% stenosis to the proximal LAD, 70% stenosis to the mid LAD, 90% stenosis to the circumflex coronary artery, and 95% stenosis to the right coronary artery. Subsequently he was recommended to undergo CABG which was completed 04/13/2020. He did experience postoperative atrial fibrillation/atrial flutter and was placed on amiodarone and Eliquis; in addition he underwent synchronized cardioversion with return to normal sinus rhythm. He also experienced urinary retention requiring replacement of his Grimm catheter, and acute blood loss anemia treated with blood transfusion. Otherwise he had an uneventful hospitalization and was discharged to [facility] inpatient rehab on postoperative day #6 for physical and occupational therapy. He was progressing as expected at [facility] and was expected to be discharged to home with home care this last Friday. Unfortunately Friday night he developed shortness of breath and oxygen desaturation and was felt to be in acute heart failure. He was transferred to the intensive care unit and further investigation showed that the patient had become septic from his sedation Serratia urine checked infection. He did experience some obstructive uropathy. A Grimm cath was inserted and he was given Flomax and the Grimm catheter still in place. He remains on IV cefepime regarding his sepsis and the patient was also started on vancomycin. Awaiting cardiothoracic surgical evaluation regarding the surgical wound infection. Review of Systems Constitutional: Reports fatigue, Reports weakness Eyes: denies as per HPI, denies blurred vision, denies bulging eye, denies decreased vision, denies diplopia, denies discharge, denies dry eye, denies irritation, denies itching, denies pain, denies photophobia, denies loss of pe ripheral vision, denies loss of vision, denies tunnel vision/blind spots Ears: deny: decreased hearing, ear discharge, earache, tinnitus Ears, nose, mouth and throat: Denies headache, Denies sore throat Breasts: absent: as per HPI, gynecomastia Cardiovascular: Reports chest pain (Surgical wound infection), Reports decreased exercise tolerance Respiratory: Reports as per HPI Gastrointestinal: Reports as per HPI Genitourinary: Reports as per HPI, Reports urinary frequency, Reports urinary hesitancy, Reports urinary retention Musculoskeletal: Reports as per HPI Musculoskeletal: bilateral: ankle swelling, absent: ankle pain, ankle stiffness Integumentary: Reports as per HPI Neurological: Reports as per HPI Psychiatric: Reports as per HPI Endocrine: Reports as per HPI Hematologic/Lymphatic: Reports as per HPI Allergic/Immunologic: Reports as per HPI Past Medical History Past Medical History: Coronary Artery Disease (CAD), Hyperlipidemia, Hypertension, Myocardial Infarction ([place]), Osteoarthritis (OA) Additional Past Medical History / Comment(s): Sepsis secondary to Serratia UTI and the patient was bacteremic Last Myocardial Infarction Date:: 2001 History of Any Multi-Drug Resistant Organisms: None Reported Past Surgical History: Coronary Bypass/CABG, Heart Catheterization With Stent, Hernia Repair, Joint Replacement, Tonsillectomy Additional Past Surgical History / Comment(s): Precancerous skin lesion removed, right knee replacement, cyst removed, bilateral cataracts removed. Bare-metal stent placed to the RCA in February 2002; 4 vessel CABG 04/13/2020 Past Anesthesia/Blood Transfusion Reactions: No Reported Reaction Date of Last Stent Placement:: 2001 Past Psychological History: No Psychological Hx Reported Smoking Status: Former smoker Past Alcohol Use History: Rare Additional Past Alcohol Use History / Comment(s): quit smoking 30-35 yrs. ago, started @age 13, up to 3ppd, quit in late 70's Past Drug Use History: None Reported - Past Family History Father Family Medical History: Cancer Mother Family Medical History: Cancer Medications and Allergies Home Medications Medication Instructions Recorded Confirmed Type Acetaminophen Tab [Tylenol] 1,000 mg PO Q6HR PRN tab 04/19/20 05/06/20 Rx Apixaban [Eliquis] 5 mg PO BID tab 04/19/20 05/06/20 Rx Ascorbic Acid [Vitamin C] 500 mg PO BID-W/MEALS tab 04/19/20 05/06/20 Rx Atorvastatin [Lipitor] 40 mg PO DAILY tab 04/19/20 05/06/20 Rx Ferrous Sulfate [Iron (65 MG 325 mg PO BID-W/MEALS tab 04/19/20 05/06/20 Rx Elemental)] Multivitamins, Thera [Multivitamin 1 each PO DAILY tab 04/19/20 05/06/20 Rx (formulary)] Pantoprazole [Protonix] 40 mg PO AC-BRKFST tablet. 04/19/20 05/06/20 Rx Sennosides-Docusate Sodium 2 each PO HS tab 04/19/20 05/06/20 Rx [Senokot-S] Tamsulosin [Flomax] 0.4 mg PO BID cap.er.24h 04/19/20 05/06/20 Rx amLODIPine [Norvasc] 2.5 mg PO DAILY@1200 tab 04/19/20 05/06/20 Rx Amiodarone [Cordarone] See Taper PO DIRECTED 05/06/20 05/06/20 History Metoprolol Tartrate [Lopressor] 12.5 mg PO BID 05/06/20 05/06/20 History Allergies Allergy/AdvReac Type Severity Reaction Status Date / Time codeine Allergy Headache/brain Verified 05/06/20 19:54 swelling Physical Exam Vitals: Vital Signs Temp Pulse Resp BP Pulse Ox 05/07/20 08:00 98.0 F 69 17 116/63 91 L 05/07/20 04:00 98.1 F 67 18 116/71 98 05/06/20 23:41 65 17 05/06/20 23:37 98.0 F 65 17 103/59 96 05/06/20 20:47 71 16 05/06/20 19:48 97.9 F 71 16 110/66 96 05/06/20 17:08 98.6 F 68 16 113/68 98 Intake and Output 05/06/20 05/07/20 05/07/20 22:59 06:59 14:59 Intake Total 240 480 Output Total 600 900 550 Balance -360 900 -70 Intake: Oral 240 480 Output: Urine 600 900 550 Uretheral (Grimm) 600 Other: Voiding Method Indwelling Catheter Indwelling Catheter Indwelling Catheter # Voids 1 1 Weight 79.379 kg 78.5 kg - General well developed, well nourished, no distress, no pain - Eyes normal ocular movement - ENT no hearing loss - Neck no masses, no bruits, trachea midline - Respiratory Lungs sounds diminished bilaterally. Respirations even, nonlabored. Currently on room air with oxygen saturation 96%. Able to achieve 750-1000 mL on his incentive spirometry. Strong cough. - Cardiovascular S1, S2 present. Regular rate and rhythm, sinus rhythm on telemetry. Sternum stable. Palpable peripheral pulses bilaterally. 2+ bilateral lower extremity edema present. Heart hugger placed patient demonstrating appropriate use. Left leg Jair wrapped. SCDs present. - Abdomen Abdomen: soft, non tender, bowel sounds - Genitourinary Grimm present draining clear, yellow urine. - Rectum Deferred - Integumentary Skin is warm and dry with evidence of good perfusion. Anterior chest incision approximated, reddened, small fluid-filled sacs present, and the area is quite erythematous and warm. There is some thick drainage of purulent material from the skin surface in the mid incisional area. - Neurologic normal coordination, normal sensation - Musculoskeletal normal posture - Psychiatric oriented to time, oriented to person, oriented to place, speech is normal, memory intact Results - Laboratory Findings CBC and BMP: 05/07/20 07:16 05/07/20 07:16 Abnormal lab findings: Abnormal Labs 05/06/20 05/06/20 05/07/20 18:53 18:53 07:16 RBC 2.64 L 2.61 L Hgb 8.1 L 7.9 L Hct 26.3 L 26.4 L MCV 100.9 H MCHC 30.7 L 30.1 L RDW 18.6 H 18.5 H Plt Count 571 H 541 H Lymphocytes # (Manual) 0.86 L Eosinophils # 0.8 H Eosinophils # (Manual) 1.01 H ESR 67 H Sodium 134 L Chloride 96 L Carbon Dioxide 33 H BUN 30 H Glucose 149 H Calcium 8.0 L C-Reactive Protein 27.2 H Total Protein 5.0 L Albumin 2.6 L 08/30/20 07:16 RBC Hgb Hct MCV MCHC RDW Plt Count Lymphocytes # (Manual) Eosinophils # Eosinophils # (Manual) ESR Sodium 135 L Chloride Carbon Dioxide 35 H BUN 24 H Glucose Calcium 8.2 L C-Reactive Protein Total Protein 5.0 L Albumin 2.5 L - Diagnostic Findings Chest x-ray: image reviewed Assessment and Plan Plan: \ 1 infection of the sternal wound, awaiting a CT surgery evaluation. The patient is currently on accommodation cefepime and vancomycin. Cultures were obtained and results are still pending for now. 2 recent septic shock secondary to Serratia UTI. The patient was bacteremic and the patient could have also seeded his sternal wound. 3 coronary artery disease with previous inferior wall [place] and previous stenting of RCA with subsequent four-vessel bypass surgery on 04/15/2020 4 proximal atrial fibrillation/flutter postop, current rhythm is sinus 5 obstructive uropathy and urinary retention and patient has a Grimm catheter in place currently on Flomax 6 CHF with an ejection fraction 40-45% 7 mildly dilated ascending aorta measuring 4.2 cm 8 hypertension 9 hyperlipidemia 10 bilateral pleural effusions post bypass surgery and the patient got diuresed adequately with IV Lasix with an attempted thoracentesis of the drained minimal amount of fluid from the left lung. 11 BPH Plan Agree on the current antibiotics Thoracic surgery evaluation regarding the possibility of the abdominal wound Cultures were taken Keep the Grimm catheter in place Continue Flomax Chest x-ray was reviewed and there is minimal amount of pleural fluid IV evaluation Consider a CAT scan of the chest to assess the extent of the sternal wound infection. This seems to be quite superficial at this point in time We'll continue to follow
[2020-05-07] MEDS: VANCOMYCIN 1,500 MG in SODIUM CHLORIDE 0.9% 250 ML IVPB SCH (12:22)
[2020-05-07] MEDS: ASPIRIN 325 MG TAB PO SCH (12:22)
[2020-05-07] MEDS: ACETAMINOPHEN TAB 500 MG TAB PO PRN ×2 (13:09→18:48)
--- NOTE | 2020-05-07 15:47 | P.HPIM ---
History of Present Illness H&P Date: 05/07/20 79-year-old male patient of Dr. guallpa with long-standing history of CAD post AK with history of PCI and stent placement of the right coronary artery disease over 10 years ago who is known to have history of hypertension hyperlipidemia and previous history of tobacco dependency patient has been doing natural management for many years started noticing significant shortness of breath and decrease endurance when attempted to walk and ambulate was seen Dr. FRANK patel and end up going for stress test showed moderate area of infarct ischemic change patient ended up going for heart cath on 03/09/2020 finding was consistent with 80 percentile blockage of the LAD, 70% blockage in the mid LAD, 90% blockage of the circumflex and 95% blockage of the RCA, underwent 4 vessel bypass surgery on 2019 and was sent to the ICU on mechanical ventilation. Postoperatively patient did experience atrial fibrillation/atrial flutter and was placed on a meter on an ad guzman. (. He also underwent synchronized cardioversion with return to normal sinus rhythm. Patient also received 1 unit of packed RBC while at [facility] for acute blood loss anemia. He was also found to have urinary retention for which he was placed on Grimm catheter and was sent to inpatient rehab at [facility]. Patient was given iron infusion at [facility] and 2 attempts were made to remove Grimm catheter without any success. Patient is started on Flomax to help with urine retention. Patient was noted to be short of breath on discharge to inpatient rehab on 04/25 and found to have left pleural effusion. Patient was diuresed with IV Lasix. Patient was doing well and was planned to be discharged on 05/04 but on 05/03 , he developed she worsening shortness of breath with drop in oxygen saturation to 74% on nonrebreather, patient was placed in on BiPAP and was transferred to the ICU. Chest CT was obtained that showed an congestive heart failure with mild infiltrate. Pulmonary attempted thoracentesis with minimal output. The echo suggested an EF of 50% hemoglobin of 6.9 requiring transfusion. Urine and blood culture was was positive for Serratia and patient was placed on cefepime by Dr. Hightower On 05/06 she was noted to have increased redness and drainage around the incision site from coronary artery bypass graft. Infectious disease recommended transcend back to [facility] for reevaluation by cardiothoracic surgery. Patient was also initiated on Proscar to help with urine retention. Since the Grimm catheter was leaking, the nurse removed the Grimm catheter for an attempt of Grimm catheter. Nurse was instructed to obtain bladder scan every 6 hour. Patient was found to have urinary retention greater than 600 mL with multiple attempts by the patient to urinate without any success. Grimm catheter was placed back in. On reevaluation today, patient denies any shortness of breath. He did have incision and drainage and packing of the wound done at bedside by Dr. Olivo on . Patient denies any episode of fever overnight he denies any shortness of breath. Vitals are stable temperature 97.7 pulse 73 respiratory rate 19 and blood pressure 106/58. Labs are suggestive hemoglobin 7.9 and MCV 100.9 platelet count 541 Eucerin CRP are elevated creatinine 0.89 sodium 135 BUN 24 Swelling in the lower extremity has improved continue IV Lasix. Continue cefepime and vancomycin per ID recommendation. Review of Systems Constitutional: Denies chills, Denies fever, Denies lethargy, Denies malaise, Denies poor appetite, Denies weakness, Denies weight loss Eyes: denies decreased vision, denies diplopia, denies discharge, denies pain Ears: deny: decreased hearing Ears, nose, mouth and throat: Denies dental pain, Denies headache, Denies nasal discharge, Denies nose pain Cardiovascular: Denies chest pain, Denies decreased exercise tolerance, Denies edema, Denies high blood pressure, Denies irregular heart beat, Denies palpitations, Denies paroxysmal nocturnal dyspnea, Denies rapid heart beat, Denies shortness of breath Respiratory: Denies congestion, Denies cough, Denies cough with sputum, Denies dyspnea, Denies home oxygen, Denies wheezing Gastrointestinal: Denies abdominal pain, Denies change in bowel habits, Denies coffee ground emesis, Denies early satiety, Denies excessive gas, Denies heartburn, Denies hematemesis, Denies hematochezia, Denies loss of appetite, Denies nausea, Denies vomiting Genitourinary: Denies dysuria, Denies flank pain, Denies kidney stones, Denies menorrhagia, endorses urinary retention Musculoskeletal: Denies gait dysfunction, Denies limitation of motion, Denies morning stiffness, Denies muscle cramps Integumentary: Sternal wound infected, Denies brittle nails, Denies change in hair/nails, Denies darkening of skin Neurological: Denies balance difficulties, Denies change in speech, Denies double vision, Denies gait dysfunction, Denies loss of vision, Denies motor disturbance, Denies numbness, Denies paralysis, Denies paresthesias, Denies seizures Psychiatric: Denies anxiety, Denies depression Endocrine: Denies excessive sweating, Denies excessive thirst, Denies high blood sugars, Denies palpitations Hematologic/Lymphatic: Denies easy bruising, Denies lymphadenopathy Past Medical History Past Medical History: Coronary Artery Disease (CAD), Hyperlipidemia, Hypertension, Myocardial Infarction ([place]), Osteoarthritis (OA) Additional Past Medical History / Comment(s): Sepsis secondary to Serratia UTI and the patient was bacteremic Last Myocardial Infarction Date:: 2001 History of Any Multi-Drug Resistant Organisms: None Reported Past Surgical History: Coronary Bypass/CABG, Heart Catheterization With Stent, Hernia Repair, Joint Replacement, Tonsillectomy Additional Past Surgical History / Comment(s): Precancerous skin lesion removed, right knee replacement, cyst removed, bilateral cataracts removed. Bare-metal stent placed to the RCA in February 2002; 4 vessel CABG 04/13/2020 Past Anesthesia/Blood Transfusion Reactions: No Reported Reaction Date of Last Stent Placement:: 2001 Past Psychological History: No Psychological Hx Reported Smoking Status: Former smoker Past Alcohol Use History: Rare Additional Past Alcohol Use History / Comment(s): quit smoking 30-35 yrs. ago, started @age 13, up to 3ppd, quit in late 70's Past Drug Use History: None Reported - Past Family History Father Family Medical History: Cancer Mother Family Medical History: Cancer Medications and Allergies Home Medications Medication Instructions Recorded Confirmed Type Acetaminophen Tab [Tylenol] 1,000 mg PO Q6HR PRN tab 04/19/20 05/06/20 Rx Apixaban [Eliquis] 5 mg PO BID tab 04/19/20 05/06/20 Rx Ascorbic Acid [Vitamin C] 500 mg PO BID-W/MEALS tab 04/19/20 05/06/20 Rx Atorvastatin [Lipitor] 40 mg PO DAILY tab 04/19/20 05/06/20 Rx Ferrous Sulfate [Iron (65 MG 325 mg PO BID-W/MEALS tab 04/19/20 05/06/20 Rx Elemental)] Multivitamins, Thera [Multivitamin 1 each PO DAILY tab 04/19/20 05/06/20 Rx (formulary)] Pantoprazole [Protonix] 40 mg PO AC-BRKFST tablet. 04/19/20 05/06/20 Rx Sennosides-Docusate Sodium 2 each PO HS tab 04/19/20 05/06/20 Rx [Senokot-S] Tamsulosin [Flomax] 0.4 mg PO BID cap.er.24h 04/19/20 05/06/20 Rx amLODIPine [Norvasc] 2.5 mg PO DAILY@1200 tab 04/19/20 05/06/20 Rx Amiodarone [Cordarone] See Taper PO DIRECTED 05/06/20 05/06/20 History Metoprolol Tartrate [Lopressor] 12.5 mg PO BID 05/06/20 05/06/20 History Allergies Allergy/AdvReac Type Severity Reaction Status Date / Time codeine Allergy Headache/brain Verified 05/06/20 19:54 swelling Physical Exam Vitals: Vital Signs Temp Pulse Resp BP Pulse Ox 05/07/20 08:00 98.0 F 69 17 116/63 91 L 05/07/20 04:00 98.1 F 67 18 116/71 98 05/06/20 23:41 65 17 05/06/20 23:37 98.0 F 65 17 103/59 96 05/06/20 20:47 71 16 05/06/20 19:48 97.9 F 71 16 110/66 96 05/06/20 17:08 98.6 F 68 16 113/68 98 Intake and Output 05/06/20 05/07/20 05/07/20 22:59 06:59 14:59 Intake Total 240 480 Output Total 697 825 3158 Balance -360 900 1070 Intake: Oral 240 480 Output: Urine 003 294 7935 Uretheral (Grimm) 600 Other: Voiding Method Indwelling Catheter Indwelling Catheter Indwelling Catheter # Voids 1 1 Weight 79.379 kg 78.5 kg - Constitutional General appearance: cooperative, no acute distress cooperate at - EENT Eyes: anicteric sclerae, PERRLA, normal appearance ENT: hearing grossly normal - Neck Neck: no lymphadenopathy, normal ROM, no other, no rigidity, no stridor, no thyromegaly - Respiratory Respiratory: bilateral decreased air entry chest wall expansion decreased. Heart Hugger placed - Cardiovascular Rhythm: regular Heart sounds: normal: S1, S2 Abnormal Heart Sounds: no systolic murmur, no diastolic murmur, no rub, no S3 Gallop, no S4 Gallop, no click - Gastrointestinal General gastrointestinal: normal bowel sounds, soft nontender nondistended - Integumentary Integumentary: Indeed there chest incision approximated, dressing overlying the packed . - Neurologic Neurologic: Normal coordination normal sensation - Musculoskeletal Musculoskeletal: gait normal, strength equal bilaterally no lower extremity edema - Psychiatric Psychiatric: A&O x's 3, appropriate affect Results CBC & Chem 7: 05/07/20 07:16 05/07/20 07:16 Labs: Abnormal Lab Results - Last 24 Hours (Table) 05/06/20 05/06/20 05/07/20 Range/Units 18:53 18:53 07:16 RBC 2.64 L 2.61 L (4.30-5.90) m/uL Hgb 8.1 L 7.9 L (13.0-17.5) gm/dL Hct 26.3 L 26.4 L (39.0-53.0) % MCV 100.9 H (80.0-100.0) fL MCHC 30.7 L 30.1 L (31.0-37.0) g/dL RDW 18.6 H 18.5 H (11.5-15.5) % Plt Count 571 H 541 H (150-450) k/uL Lymphocytes # (Manual) 0.86 L (1.0-4.8) k/uL Eosinophils # 0.8 H (0-0.7) k/uL Eosinophils # (Manual) 1.01 H (0-0.7) k/uL ESR 67 H (0-15) mm/hr Sodium 134 L (137-145) mmol/L Chloride 96 L (98-107) mmol/L Carbon Dioxide 33 H (22-30) mmol/L BUN 30 H (9-20) mg/dL Glucose 149 H (74-99) mg/dL Calcium 8.0 L (8.4-10.2) mg/dL C-Reactive Protein 27.2 H (<10.0) mg/L Total Protein 5.0 L (6.3-8.2) g/dL Albumin 2.6 L (3.5-5.0) g/dL 05/07/20 Range/Units 07:16 RBC (4.30-5.90) m/uL Hgb (13.0-17.5) gm/dL Hct (39.0-53.0) % MCV (80.0-100.0) fL MCHC (31.0-37.0) g/dL RDW (11.5-15.5) % Plt Count (150-450) k/uL Lymphocytes # (Manual) (1.0-4.8) k/uL Eosinophils # (0-0.7) k/uL Eosinophils # (Manual) (0-0.7) k/uL ESR (0-15) mm/hr Sodium 135 L (137-145) mmol/L Chloride (98-107) mmol/L Carbon Dioxide 35 H (22-30) mmol/L BUN 24 H (9-20) mg/dL Glucose (74-99) mg/dL Calcium 8.2 L (8.4-10.2) mg/dL C-Reactive Protein (<10.0) mg/L Total Protein 5.0 L (6.3-8.2) g/dL Albumin 2.5 L (3.5-5.0) g/dL Thrombosis Risk Factor Assmnt - DVT/VTE Prophylaxis DVT/VTE Prophylaxis: Pharmacologic Prophylaxis ordered - Choose All That Apply Each Risk Factor Represents 3 Points: Age 75 years or older Each Risk Factor Represents 5 Points: Major surgery lasting over 3 hours Thrombosis Risk Factor Assessment Total Risk Factor Score: 8 Thrombosis Risk Factor Assessment Level: High Risk Assessment and Plan Plan: 1 post surgical infection of the sternal wound status post opening up of incision bedside and cleaning and packing the area. Wound culture has been sent at [facility]. Continue on vancomycin and cefepime per Dr. Hightower. We will discuss with the cardiothoracic team and the infectious disease team for the need of CAT scan of the chest versus ultrasound to look for abscess. 2. CAUTI bacteremia secondary to Serratia . Septic shock resolved. Currently on vancomycin and cefepime. 3. H/o triple vessel coronary disease s/p remote inferior wall AK with RCA stent, post 4 vessel coronary artery bypass grafting with KEANE to the LAD, left radial arterial graft to the OM, SVG to the PDA, SVG to the diagonal with left radial artery harvest along with left lower extremity endoscopy Vein harvest on 04/13. On aspirin 325 mg Plavix Lipitor 4 Acute hypoxic respiratory failure with left pleural effusion, attempted thoracentesis on with minimal output continue Lasix IV 40 mg daily. Pulmonary consulted continue INR monitoring and repeat echo with ejection fraction 50% on 05/03. 5 postop atrial flutter/ atrial fibrillation status post clip ligation of the left atrial appendage and cardioversion. Oral amiodarone, Lopressor and eliquis. 6. BPH with urinary retention requiring Grimm catheter placement. Last placed on 05/06 on Flomax twice daily on urology recommendation. Finasteride added at 5 mg by mouth daily 7. Acute blood loss anemia with bone marrow suppression status post 2 units of PRBC and iron infusion at [facility]. Continue daily CBC. Transfuse if hemoglobin less than 7. Continue iron supplementation daily 8. Systolic congestive heart failure with ejection fraction 50% with [id number] left ventricular dysfunction. Last echo obtained on 05/03 9. hypertension. Continue amiodarone, Lopressor. 10. hyperlipidemia: atorvastatin 40 mg daily resume medication. 11 history of osteoarthritis post right total knee arthroplasty. 12. hyperglycemia. NovoLog scale. 13 DVT prophylaxis: Eliquis. 14 GI prophylaxis: Pantoprazole 40 by mouth with breakfast CODE STATUS: Full code. Discharge plan: Patient need 1-2 inpatient nights for stabilization. Likely discharge with home care when stable
[2020-05-07] MEDS: HEPARIN SODIUM,PORCINE 5,000 UNIT/ML 1 ML VIAL SQ SCH ×2 (17:28→23:31)
[2020-05-07] MEDS: SENNOSIDES-DOCUSATE SODIUM 1 EACH TAB PO SCH (20:25)
[2020-05-07] MEDS: ATORVASTATIN 40 MG TAB PO SCH (20:25)
[2020-05-08] MEDS: VANCOMYCIN 1,500 MG in SODIUM CHLORIDE 0.9% 250 ML IVPB SCH ×2 (03:46→21:22)
[2020-05-08] MEDS: ACETAMINOPHEN TAB 500 MG TAB PO PRN ×3 (05:27→23:19)
--- NOTE | 2020-05-08 06:18 | P.CONS ---
History of Present Illness - Reason for Consult Consult date: 05/07/20 Sternal wound infection and UTI Requesting physician: Joaquín Mcdowell - Chief Complaint Drainage from his sternal wound x one day - History of Present Illness Patient is a 79-year-old male with a past medical history significant for coronary artery disease in this patient who is status post coronary bypass grafting on 04/13/2020, patient subsequently was transferred to the [facility] inpatient rehab unit where the patient was afebrile for 2 weeks, her last week the patient did develop sepsis secondary to urinary source patient did have evidence of Serratia bacteremia and UTI for the patient was treated with cefepime, yesterday the patient was noticed to have more erythema around his sternal incision and purulent drainage from small wound in the middle of the sternal which was tracking all the way down to the bone, wound cultures were obtained and the patient was subsequently transferred to [facility] to be evaluated by CT surgery, patient currently is afebrile did have some dull aching pain to the chest wall but no significant worsening patient did mention that the wound was opened by surgeon this afternoon with drainage of the pus and deep cultures patient currently denies having any shortness of breath no nausea no vomiting no abdominal pain no diarrhea still has a Grimm catheter in and is currently being treated with cefepime and vancomycin, patient culture done at [facility] yesterday are showing Staphylococcus species with the ID sensitivities pending patient did have a sed rate of 67 and CRP is elevated at 27.2 blood cultures were done yesterday at [facility] are so for pending Review of Systems Positive point has been mentioned in the HPI rest of the systems are negative Past Medical History Past Medical History: Coronary Artery Disease (CAD), Hyperlipidemia, Hypertension, Myocardial Infarction ([place]), Osteoarthritis (OA) Additional Past Medical History / Comment(s): Sepsis secondary to Serratia UTI and the patient was bacteremic Last Myocardial Infarction Date:: 2001 History of Any Multi-Drug Resistant Organisms: None Reported Past Surgical History: Coronary Bypass/CABG, Heart Catheterization With Stent, Hernia Repair, Joint Replacement, Tonsillectomy Additional Past Surgical History / Comment(s): Precancerous skin lesion removed, right knee replacement, cyst removed, bilateral cataracts removed. Bare-metal stent placed to the RCA in February 2002; 4 vessel CABG 04/13/2020 Past Anesthesia/Blood Transfusion Reactions: No Reported Reaction Date of Last Stent Placement:: 2001 Past Psychological History: No Psychological Hx Reported Smoking Status: Former smoker Past Alcohol Use History: Rare Additional Past Alcohol Use History / Comment(s): quit smoking 30-35 yrs. ago, started @age 13, up to 3ppd, quit in late 70's Past Drug Use History: None Reported - Past Family History Father Family Medical History: Cancer Mother Family Medical History: Cancer Medications and Allergies Home Medications Medication Instructions Recorded Confirmed Type Acetaminophen Tab [Tylenol] 1,000 mg PO Q6HR PRN tab 04/19/20 05/06/20 Rx Apixaban [Eliquis] 5 mg PO BID tab 04/19/20 05/06/20 Rx Ascorbic Acid [Vitamin C] 500 mg PO BID-W/MEALS tab 04/19/20 05/06/20 Rx Atorvastatin [Lipitor] 40 mg PO DAILY tab 04/19/20 05/06/20 Rx Ferrous Sulfate [Iron (65 MG 325 mg PO BID-W/MEALS tab 04/19/20 05/06/20 Rx Elemental)] Multivitamins, Thera [Multivitamin 1 each PO DAILY tab 04/19/20 05/06/20 Rx (formulary)] Pantoprazole [Protonix] 40 mg PO AC-BRKFST tablet. 04/19/20 05/06/20 Rx Sennosides-Docusate Sodium 2 each PO HS tab 04/19/20 05/06/20 Rx [Senokot-S] Tamsulosin [Flomax] 0.4 mg PO BID cap.er.24h 04/19/20 05/06/20 Rx amLODIPine [Norvasc] 2.5 mg PO DAILY@1200 tab 04/19/20 05/06/20 Rx Amiodarone [Cordarone] See Taper PO DIRECTED 05/06/20 05/06/20 History Metoprolol Tartrate [Lopressor] 12.5 mg PO BID 05/06/20 05/06/20 History Allergies Allergy/AdvReac Type Severity Reaction Status Date / Time codeine Allergy Headache/brain Verified 05/06/20 19:54 swelling Physical Exam Vitals: Vital Signs Temp Pulse Resp BP Pulse Ox 05/07/20 12:00 97.7 F 73 19 106/58 94 L 05/07/20 08:00 98.0 F 69 17 116/63 91 L 05/07/20 04:00 98.1 F 67 18 116/71 98 05/06/20 23:41 65 17 05/06/20 23:37 98.0 F 65 17 103/59 96 05/06/20 20:47 71 16 05/06/20 19:48 97.9 F 71 16 110/66 96 05/06/20 17:08 98.6 F 68 16 113/68 98 Intake and Output 05/07/20 05/07/20 05/07/20 06:59 14:59 22:59 Intake Total 480 Output Total 900 2550 Balance - Intake: Oral 480 Output: Urine 900 2550 Other: Voiding Method Indwelling Catheter Indwelling Catheter # Voids 1 Weight 78.5 kg GENERAL DESCRIPTION: An elderly male up in the chair, no distress. No tachypnea or accessory muscle of respiration use. HEENT: Shows Pallor , no scleral icterus. Oral mucous membrane is dry. No pharyngeal erythema or thrush NECK: Trachea central, no thyromegaly. LUNGS: Unlabored breathing. Clear to auscultation anteriorly. No wheeze or crackle. HEART: S1, S2, regular rate and rhythm. No loud murmur, sternal wound is currently dressed ABDOMEN: Soft, no tenderness , guarding or rigidity, no organomegaly EXTREMITIES: No edema of feet. SKIN: No rash, no masses palpable. NEUROLOGICAL: The patient is awake, alert, oriented x3, mood and affect normal. Results CBC & Chem 7: 05/07/20 07:16 05/07/20 07:16 Labs: Abnormal Lab Results - Last 24 Hours (Table) 05/06/20 05/06/20 05/07/20 Range/Units 18:53 18:53 07:16 RBC 2.64 L 2.61 L (4.30-5.90) m/uL Hgb 8.1 L 7.9 L (13.0-17.5) gm/dL Hct 26.3 L 26.4 L (39.0-53.0) % MCV 100.9 H (80.0-100.0) fL MCHC 30.7 L 30.1 L (31.0-37.0) g/dL RDW 18.6 H 18.5 H (11.5-15.5) % Plt Count 571 H 541 H (150-450) k/uL Lymphocytes # (Manual) 0.86 L (1.0-4.8) k/uL Eosinophils # 0.8 H (0-0.7) k/uL Eosinophils # (Manual) 1.01 H (0-0.7) k/uL ESR 67 H (0-15) mm/hr Sodium 134 L (137-145) mmol/L Chloride 96 L (98-107) mmol/L Carbon Dioxide 33 H (22-30) mmol/L BUN 30 H (9-20) mg/dL Glucose 149 H (74-99) mg/dL Calcium 8.0 L (8.4-10.2) mg/dL C-Reactive Protein 27.2 H (<10.0) mg/L Total Protein 5.0 L (6.3-8.2) g/dL Albumin 2.6 L (3.5-5.0) g/dL 05/07/20 Range/Units 07:16 RBC (4.30-5.90) m/uL Hgb (13.0-17.5) gm/dL Hct (39.0-53.0) % MCV (80.0-100.0) fL MCHC (31.0-37.0) g/dL RDW (11.5-15.5) % Plt Count (150-450) k/uL Lymphocytes # (Manual) (1.0-4.8) k/uL Eosinophils # (0-0.7) k/uL Eosinophils # (Manual) (0-0.7) k/uL ESR (0-15) mm/hr Sodium 135 L (137-145) mmol/L Chloride (98-107) mmol/L Carbon Dioxide 35 H (22-30) mmol/L BUN 24 H (9-20) mg/dL Glucose (74-99) mg/dL Calcium 8.2 L (8.4-10.2) mg/dL C-Reactive Protein (<10.0) mg/L Total Protein 5.0 L (6.3-8.2) g/dL Albumin 2.5 L (3.5-5.0) g/dL Assessment and Plan Assessment: 1- patient with sternal incision cellulitis and a bone status post debridement and drainage operative report is pending as for his extent of this infection, the cultures that were obtained at [facility] are currently growing Staphylococcus species and will need to cover for MRSA to be the likely pathogen 2-patient with Serratia marcescens's UTI and bacteremia (1) Bacterial infection due to Serratia Current Visit: Yes Status: Acute Code(s): A49.8 - OTHER BACTERIAL INFECTIONS OF UNSPECIFIED SITE SNOMED Code(s): 50682283 (2) Incisional infection Current Visit: Yes Status: Acute Code(s): T81.49XA - INFECTION FOLLOWING A PROCEDURE, OTHER SURGICAL SITE, INIT SNOMED Code(s): 09484562 Plan: 1- Vancomycin pharmacy to dose target trough of 15 while watching his kidney function and Vanco trough closely 2- cefepime 2 g every 12 hours 3- patient will likely need a PICC line and outpatient IV antibiotic therapy We will follow on clinical condition and cultures to further adjust medication if needed Thank you for this consultation will follow this patient with you
[2020-05-08] MEDS: PANTOPRAZOLE 40 MG TABLET PO SCH (06:25)
[2020-05-08] MEDS: MIDODRINE 5 MG TAB PO SCH ×2 (06:25→16:59)
[2020-05-08] MEDS: FERROUS SULFATE 325 MG TAB PO SCH ×2 (06:25→16:59)
[2020-05-08] MEDS: AMIODARONE 200 MG TAB PO SCH (08:31)
[2020-05-08] MEDS: ASPIRIN 325 MG TAB PO SCH (08:31)
[2020-05-08] MEDS: HEPARIN SODIUM,PORCINE 5,000 UNIT/ML 1 ML VIAL SQ SCH ×3 (08:31→23:19)
[2020-05-08] MEDS: ASCORBIC ACID 500 MG TAB PO SCH ×2 (08:31→21:19)
[2020-05-08] MEDS: CEFEPIME 2 GM in SODIUM CHLORIDE 0.9% 100 ML IVPB SCH ×2 (08:31→23:20)
[2020-05-08] MEDS: FUROSEMIDE 10 MG/ML 4 ML VIAL IV SCH ×2 (08:32→21:19)
[2020-05-08] MEDS: TAMSULOSIN 0.4 MG CAP.ER.24H PO SCH ×2 (08:32→21:19)
[2020-05-08] MEDS: MULTIVITAMINS, THERA 1 EACH TAB PO SCH (08:32)
[2020-05-08] MEDS: METOPROLOL TARTRATE 12.5 MG TAB PO SCH ×2 (08:32→21:18)
[2020-05-08] MEDS: FINASTERIDE 5 MG TAB PO SCH (08:32)
[2020-05-08] MEDS: BUDESONIDE 0.5 MG/2 ML NEBU INHALATION SCH ×2 (09:15→20:10)
--- NOTE | 2020-05-08 09:30 | P.PN ---
Subjective Progress Note Date: 05/08/20 Principal diagnosis: Sternal incision infection, likely superficial, Serratia UTI and bacteremia present at [facility], left pleural effusion at [facility] with attempted thoracentesis. 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 Complains of overall chest discomfort which is controlled with Tylenol, denies shortness of breath currently, did have some shortness of breath last night and was placed on BiPAP with relief. Remains afebrile. Remains in normal sinus rhythm. Anterior chest incision was opened at the bedside yesterday by Dr. Olivo, deep culture taken, wound was cleaned and packed. Remains on IV vancomycin and cefepime per infectious disease, reportedly superficial sternal incision preliminarily positive for staph from culture taken 05/06 at [facility]. Objective - Vital Signs Vital signs: Vital Signs Temp 97.9 F 05/08/20 03:52 Pulse 67 05/08/20 03:52 Resp 16 05/08/20 03:52 BP 106/58 05/08/20 03:52 Pulse Ox 95 05/08/20 03:52 Intake & Output 05/07/20 05/08/20 05/08/20 18:59 06:59 18:59 Intake Total 1550 Output Total 2550 1150 Balance -1000 -1150 Weight 85 kg Intake: Intake, IV Titration 350 Amount Cefepime 2 gm In Sodium 100 Chloride 0.9% 100 ml @ 200 mls/hr IVPB ONCE ONE Rx#:[id number] Vancomycin 1,500 mg In 250 Sodium Chloride 0.9% 250 ml @ 125 mls/hr IVPB Q16H [facility] Rx#:[id number] Oral 1200 Output: Urine 2550 1150 Other: Voiding Method Indwelling Catheter Indwelling Catheter # Voids 1 - Constitutional General appearance: Present: cooperative, no acute distress - Respiratory Details: Lungs sounds diminished bilaterally. Respirations even, nonlabored. Currently on room air with oxygen saturation 95%. Able to achieve 1250 mL on his incentive spirometry. Strong cough. - Cardiovascular Details: S1, S2 present. Regular rate and rhythm, sinus rhythm on telemetry. Sternum stable. Palpable peripheral pulses bilaterally. No edema present. Heart hugger in place with patient demonstrating appropriate use. SCDs present. - Gastrointestinal Gastrointestinal Comment(s): Abdomen soft, nontender, nondistended. Active bowel sounds present 4 quadrants. Tolerating diet. - Genitourinary Genitourinary Comment(s): Grimm catheter present draining clear, yellow urine. Output 600 mL overnight. - Integumentary Integumentary Comment(s): Skin is warm and dry with evidence of good perfusion. Anterior chest incision opened, slough present, continues to drain, cleaned and packed with Kerlix and covered with 4 x 4 - Neurologic Neurologic: Present: CNII-XII intact - Musculoskeletal Musculoskeletal: Present: strength equal bilaterally - Psychiatric Psychiatric: Present: A&O x's 3, appropriate affect, intact judgment & insight - Allied health notes Allied health notes reviewed: nursing - Labs CBC & Chem 7: 05/07/20 07:16 05/07/20 07:16 Labs: Abnormal Lab Results - Last 24 Hours (Table) 05/07/20 05/07/20 Range/Units 07:16 07:16 Lymphocytes # (Manual) 0.86 L (1.0-4.8) k/uL Eosinophils # (Manual) 1.01 H (0-0.7) k/uL Sodium 135 L (137-145) mmol/L Carbon Dioxide 35 H (22-30) mmol/L BUN 24 H (9-20) mg/dL Calcium 8.2 L (8.4-10.2) mg/dL Total Protein 5.0 L (6.3-8.2) g/dL Albumin 2.5 L (3.5-5.0) g/dL Microbiology - Last 24 Hours (Table) 05/07/20 11:10 Gram Stain - Preliminary Chest Wound Culture - Preliminary Assessment and Plan Assessment: 1. Sternal incision infection, likely superficial, deep culture pending 2. Serratia UTI and bacteremia present at [facility] 3. Left pleural effusion at [facility] with attempted thoracentesis 4. History of coronary artery disease, status post remote inferior wall IN with RCA stent, status post four-vessel CABG 04/15/2020, with postoperative acute blood loss anemia status post transfusion, atrial fibrillation/flutter status post clip ligation of the left atrial appendage and cardioversion, urinary retention with Grimm catheter replacement 5. Mild to moderate left ventricular dysfunction, chronic systolic heart failure, preoperative EF 40-45%, EF 50% on TTE 05/03 6. Mild mitral valve regurgitation 7. Moderately dilated ascending aorta 4.2 cm 8. History of hypertension 9. Hyperlipidemia 10. Previous tobacco dependence 11. Remote history of pneumonia 11. BPH 12. Family history of premature coronary artery disease Plan: 1. The patient's sternal wound was cleaned and repacked this morning. Likely will need wound VAC, wound care center consulted 2. Continue antibiotics per Dr. Chris. Preliminary incision culture from [facility] positive for staph, deep culture pending 3. Full strength aspirin restarted, continue along with Lipitor and beta branden therapy 4. Continue amiodarone by mouth for 1 week then discontinue per taper orders. Eliquis discontinued as patient has remained in normal sinus rhythm and may need eventual surgical debridement and/or closure. Discussed with Dr. Hunter 5. Bronchodilators, inhaled steroids per pulmonology. Encourage incentive spirometry use 6. Increase activity, ambulate as tolerated. PT consulted 7. Daily weights and strict accurate intake and output 8. Continue IV Lasix, iron/vitamin C, Flomax/Proscar 9. Continue postoperative lifting restrictions 10. GI/DVT prophylaxis 11. Will monitor daily labs and x-rays. No transfusion necessary at this time 12. More recommendations to follow Time with Patient: Greater than 30
[2020-05-08 09:57] LABS: Anisocytosis Slight; Basophils # (A) 0.1 k/uL (0-0.2); Basophils % (A) 1 %; Eosinophils # (A) 0.8 k/uL (0-0.7); Eosinophils % (A) 8 %; HCT 26.7 % (39.0-53.0); HGB 8.2 gm/dL (13.0-17.5); Hypochromasia Marked; Lymphocytes # (A) 1.4 k/uL (1.0-4.8); Lymphocytes % (A) 15 %; MCHC 30.6 g/dL (31.0-37.0); MCV 101.5 fL (80.0-100.0); Macrocytosis Moderate; Mean Platelet Volume 8.4; Monocytes # (A) 0.4 k/uL (0-1.0); Monocytes % (A) 4 %; Neutrophils # (A) 6.5 k/uL (1.3-7.7); Neutrophils % (A) 70 %; Platelet Count 539 k/uL (150-450); Poikilocytosis Slight; RBC 2.63 m/uL (4.30-5.90); RDW 18.8 % (11.5-15.5); WBC 9.3 k/uL (3.8-10.6)
[2020-05-08 10:16] LABS: African American GFR (CKD) >90 (>60 ml/min/1.73 sqM); Anion Gap 5 mmol/L; Blood Urea Nitrogen 26 mg/dL (9-20); Calcium 8.3 mg/dL (8.4-10.2); Carbon Dioxide 32 mmol/L (22-30); Chloride 97 mmol/L (98-107); Glucose 133 mg/dL (74-99); Non-African American GFR(CKD) 79 (>60 ml/min/1.73 sqM); Sodium 134 mmol/L (137-145)
--- NOTE | 2020-05-08 13:19 | P.PN ---
Subjective Progress Note Date: 05/08/20 Principal diagnosis: Sternal wound infection, status post recent 4 vessel bypass grafting, Serratia bacteremia 79-year-old male patient whom I transferred from [facility] to [facility] due to a complication of a surgical abdominal wound infection. The patient was seen on the medical floor and the [facility] and there thoracotomy scar was obviously infected erythematous and red and was draining. I was able to squeeze out some purulent material. Discussed the case with ID and I made to transfer to [facility]. The patient is known to have triple-vessel coronary artery disease post inferior wall MIand RCA stent, status post four-vessel CABG 04/13/2020, mild to moderate left ventricular dysfunction with chronic systolic heart failure and preoperative ejection fraction 40-45%, dilated ascending aorta measuring 4.2 cm, hype rtension, hyperlipidemia, previous tobacco dependence, pneumonia, BPH, and family history of premature coronary artery disease. He had a positive stress test in February and was recommended to undergo heart catheterization which was completed in March. This demonstrated 80% stenosis to the proximal LAD, 70% stenosis to the mid LAD, 90% stenosis to the circumflex coronary artery, and 95% stenosis to the right coronary artery. Subsequently he was recommended to undergo CABG which was completed 04/13/2020. He did experience postoperative atrial fibrillation/atrial flutter and was placed on amiodarone and Eliquis; in addition he underwent synchronized cardioversion with return to normal sinus rhy thm. He also experienced urinary retention requiring replacement of his Grimm catheter, and acute blood loss anemia treated with blood transfusion. Otherwise he had an uneventful hospitalization and was discharged to [facility] inpatient rehab on postoperative day #6 for physical and occupational therapy. He was progressing as expected at [facility] and was expected to be discharged to home with home care this last Friday. Unfortunately Friday night he developed shortness of breath and oxygen desaturation and was felt to be in acute heart failure. He was transferred to the intensive care unit and further investigation showed that the patient had become septic from his sedati on Serratia urine checked infection. He did experience some obstructive uropathy. A Grimm cath was inserted and he was given Flomax and the Grimm catheter still in place. He remains on IV cefepime regarding his sepsis and the patient was also started on vancomycin. Awaiting cardiothoracic surgical evaluation regarding the surgical wound infection. On 05/08/2020 patient seen in follow-up on selective care unit, he sitting up in the recliner, in no acute distress, room air pulse ox is 98%, hemodynamically patient is stable, breathing is comfortable, no worsening dyspnea, no fever or chills since admission, he remains on cefepime and vancomycin. His sternal wound is still draining significantly, requiring frequent dressing changes, the output is serous in nature, cardiothoracic surgery is following, ID service is following. Lung sounds are clear. Today's labs have been reviewed, showing with blood cell count 9.3, hemoglobin of 8.2, sodium is 134, potassium is 4.0, chloride is 97, CO2 32, B1 is 26, creatinine 0.93. Patient had anterior chest incision opened at the bedside, and deep cultures were taken and the wound was cleaned and packed. No altered mentation, vital signs are stable, working on incentive spirometer, achieving 1250 on the today. Objective - Vital Signs Vital signs: Vital Signs Temp 97.8 F 05/08/20 11:37 Pulse 63 05/08/20 11:39 Resp 16 05/08/20 11:39 BP 96/61 05/08/20 11:37 Pulse Ox 98 05/08/20 11:37 Intake & Output 05/07/20 05/08/20 05/08/20 18:59 06:59 18:59 Intake Total 1550 0 Output Total 2550 1150 Balance -1000 -1150 0 Weight 85 kg Intake: Intake, IV Titration 350 Amount Cefepime 2 gm In Sodium 100 Chloride 0.9% 100 ml @ 200 mls/hr IVPB ONCE ONE Rx#:[id number] Vancomycin 1,500 mg In 250 Sodium Chloride 0.9% 250 ml @ 125 mls/hr IVPB Q16H [facility] Rx#:[id number] Oral 1200 0 Output: Urine 2550 1150 Other: Voiding Method Indwelling Catheter Indwelling Catheter Indwelling Catheter # Voids 1 - Exam GENERAL EXAM: Alert, very pleasant, 79-year-old white male, on room air comfortable in no apparent distress. HEAD: Normocephalic/atraumatic. EYES: Normal reaction of pupils, equal size. Conjunctiva pink, sclera white. NOSE: Clear with pink turbinates. THROAT: No erythema or exudates. NECK: No masses, no JVD, no thyroid enlargement, no adenopathy. CHEST: No chest wall deformity. Symmetrical expansion. Sternal incision covered with dressing, with moderate to large amount of serous drainage seeping through the ABCDs, this was recently changed, proximately 3 hours ago, will need another dressing change LUNGS: Equal air entry with no crackles, wheeze, rhonchi or dullness. CVS: Regular rate and rhythm, normal S1 and S2, no gallops, no murmurs, no rubs ABDOMEN: Soft, nontender. No hepatosplenomegaly, normal bowel sounds, no guarding or rigidity. EXTREMITIES: No clubbing, no edema, no cyanosis, 2+ pulses and upper and lower extremities. MUSCULOSKELETAL: Muscle strength and tone normal. SPINE: No scoliosis or deformity SKIN: No rashes CENTRAL NERVOUS SYSTEM: Alert and oriented -3. No focal deficits, tone is normal in all 4 extremities. PSYCHIATRIC: Alert and oriented -3. Appropriate affect. Intact judgment and insight. - Labs CBC & Chem 7: 05/08/20 09:28 05/08/20 09:28 Labs: Abnormal Lab Results - Last 24 Hours (Table) 05/08/20 05/08/20 Range/Units 09:28 09:28 RBC 2.63 L (4.30-5.90) m/uL Hgb 8.2 L (13.0-17.5) gm/dL Hct 26.7 L (39.0-53.0) % MCV 101.5 H (80.0-100.0) fL MCHC 30.6 L (31.0-37.0) g/dL RDW 18.8 H (11.5-15.5) % Plt Count 539 H (150-450) k/uL Eosinophils # 0.8 H (0-0.7) k/uL Sodium 134 L (137-145) mmol/L Chloride 97 L (98-107) mmol/L Carbon Dioxide 32 H (22-30) mmol/L BUN 26 H (9-20) mg/dL Glucose 133 H (74-99) mg/dL Calcium 8.3 L (8.4-10.2) mg/dL Microbiology - Last 24 Hours (Table) 05/07/20 11:10 Gram Stain - Preliminary Chest Wound Culture - Preliminary Assessment and Plan Plan: Assessment: 1 infection of the sternal wound, evaluated by cardiothoracic surgery, the sternal wound incision was incised and drained at the bedside, deep cultures were taken, and the wound is currently packed. The patient is currently on accommodation cefepime and vancomycin. Cultures were obtained and results are still pending for now. 2 recent septic shock secondary to Serratia UTI. The patient was bacteremic and the patient could have also seeded his sternal wound. 3 coronary artery disease with previous inferior wall [place] and previous stenting of RCA with subsequent four-vessel bypass surgery on 04/15/2020 4 proximal atrial fibrillation/flutter postop, current rhythm is sinus 5 obstructive uropathy and urinary retention and patient has a Grimm catheter in place currently on Flomax 6 CHF with an ejection fraction 40-45% 7 mildly dilated ascending aorta measuring 4.2 cm 8 hypertension 9 hyperlipidemia 10 bilateral pleural effusions post bypass surgery and the patient got diuresed adequately with IV Lasix with an attempted thoracentesis of the drained minimal amount of fluid from the left lung. 11 BPH Plan: Continue with current antibiotic treatments, ID service is following, no pulmonary complaints, continue encouraging deep breathing and coughing, patient is on room air, maintaining stable saturations, sternal wound was drained, deep cultures were taken, 1 dispensed, CT surgery service is following, and there is possibility of wound VAC application to the sternal wound. Continue to closely follow with CT surgery and ID service. I performed a history & physical examination of the patient and discussed their management with my nurse practitioner, Amanda Hercules. I reviewed the nurse practitioner's note and agree with the documented findings and plan of care. Lung sounds are positive for clear breath sounds. The findings and the impression was discussed with the patient. I attest to the documentation by the nurse practitioner. Time with Patient: Less than 30
--- NOTE | 2020-05-08 13:51 | P.CONS ---
History of Present Illness - Reason for Consult Consult date: 05/08/20 Wound care - History of Present Illness This is a pleasant 79-year-old gentleman being seen by the wound care center on [address] for a nonhealing surgical wound dehiscence to the sternum. Patient underwent open-heart surgery on April 12. He noticed a opening and drainage from his and sternal incision approximate 4 days ago. Patient was brought to the hospital where he underwent a surgical debridement yesterday. Past medical history significant for coronary artery disease with CABG 2019, hyperlipidemia, hypertension, myocardial infarction, posterior arthritis, sepsis . Patient is a former smoker quitting 35 years ago. Review of Systems Review Of Systems: Constitutional: No fever, no chills, no night sweats. No weight change. No weakness, fatigue or lethargy. No daytime sleepiness. Integumentary:reports wounds, no lesions. No rash or pruritus. No unusual bruising. No change in hair or nails. Past Medical History Past Medical History: Coronary Artery Disease (CAD), Hyperlipidemia, Hypertension, Myocardial Infarction (OR), Osteoarthritis (OA) Additional Past Medical History / Comment(s): Sepsis secondary to Serratia UTI and the patient was bacteremic Last Myocardial Infarction Date:: 2001 History of Any Multi-Drug Resistant Organisms: None Reported Past Surgical History: Coronary Bypass/CABG, Heart Catheterization With Stent, Hernia Repair, Joint Replacement, Tonsillectomy Additional Past Surgical History / Comment(s): Precancerous skin lesion removed, right knee replacement, cyst removed, bilateral cataracts removed. Bare-metal stent placed to the RCA in February 2002; 4 vessel CABG 04/13/2020 Past Anesthesia/Blood Transfusion Reactions: No Reported Reaction Date of Last Stent Placement:: 2001 Past Psychological History: No Psychological Hx Reported Smoking Status: Former smoker Past Alcohol Use History: Rare Additional Past Alcohol Use History / Comment(s): quit smoking 30-35 yrs. ago, started @age 13, up to 3ppd, quit in late 70's Past Drug Use History: None Reported - Past Family History Father Family Medical History: Cancer Mother Family Medical History: Cancer Medications and Allergies Home Medications Medication Instructions Recorded Confirmed Type Acetaminophen Tab [Tylenol] 1,000 mg PO Q6HR PRN tab 04/19/20 05/06/20 Rx Apixaban [Eliquis] 5 mg PO BID tab 04/19/20 05/06/20 Rx Ascorbic Acid [Vitamin C] 500 mg PO BID-W/MEALS tab 04/19/20 05/06/20 Rx Atorvastatin [Lipitor] 40 mg PO DAILY tab 04/19/20 05/06/20 Rx Ferrous Sulfate [Iron (65 MG 325 mg PO BID-W/MEALS tab 04/19/20 05/06/20 Rx Elemental)] Multivitamins, Thera [Multivitamin 1 each PO DAILY tab 04/19/20 05/06/20 Rx (formulary)] Pantoprazole [Protonix] 40 mg PO AC-BRKFST tablet. 04/19/20 05/06/20 Rx Sennosides-Docusate Sodium 2 each PO HS tab 04/19/20 05/06/20 Rx [Senokot-S] Tamsulosin [Flomax] 0.4 mg PO BID cap.er.24h 04/19/20 05/06/20 Rx amLODIPine [Norvasc] 2.5 mg PO DAILY@1200 tab 04/19/20 05/06/20 Rx Amiodarone [Cordarone] See Taper PO DIRECTED 05/06/20 05/06/20 History Metoprolol Tartrate [Lopressor] 12.5 mg PO BID 05/06/20 05/06/20 History Allergies Allergy/AdvReac Type Severity Reaction Status Date / Time codeine Allergy Headache/brain Verified 05/06/20 19:54 swelling Physical Exam Vitals: Vital Signs Temp Pulse Resp BP Pulse Ox 05/08/20 11:39 63 16 05/08/20 11:37 97.8 F 63 16 96/61 98 05/08/20 08:00 98.1 F 67 16 114/61 95 05/08/20 03:52 97.9 F 67 16 106/58 95 05/08/20 03:39 67 18 05/07/20 23:54 98.2 F 63 18 111/67 96 05/07/20 20:38 97.8 F 63 18 100/59 95 05/07/20 20:00 63 18 05/07/20 16:00 98.0 F 69 19 108/56 94 L Intake and Output 05/07/20 05/08/20 05/08/20 22:59 06:59 14:59 Intake Total 1070 0 Output Total 550 600 Balance 520 -600 0 Intake: Intake, IV Titration 350 Amount Cefepime 2 gm In Sodium 100 Chloride 0.9% 100 ml @ 200 mls/hr IVPB ONCE ONE Rx#:[id number] Vancomycin 1,500 mg In 250 Sodium Chloride 0.9% 250 ml @ 125 mls/hr IVPB Q16H [facility] Rx#:[id number] Oral 720 0 Output: Urine 550 600 Other: Voiding Method Indwelling Catheter Indwelling Catheter Indwelling Catheter # Voids 1 Weight 85 kg Physical exam: General Appearance: Alert, cooperative, no distress, appears stated age. Skin: Full thickness surgical wound dehiscence of the sternal incision measuring approximately 6 x 4 x by 3 cm approximately sternal hardware noted, minimal slough noted large amount of granulation seen throughout the wound bed. Wound edges are attached to the wound bed. No tunneling or undermining noted. Moderate serous drainage. Ulceration was packed with gauze which was removed to visualize. all other Skin color, texture, tugor normal, no rashes or lesions. Neurologic: Alert oriented x3 Results CBC & Chem 7: 05/08/20 09:28 05/08/20 09:28 Labs: Abnormal Lab Results - Last 24 Hours (Table) 05/08/20 05/08/20 Range/Units 09:28 09:28 RBC 2.63 L (4.30-5.90) m/uL Hgb 8.2 L (13.0-17.5) gm/dL Hct 26.7 L (39.0-53.0) % MCV 101.5 H (80.0-100.0) fL MCHC 30.6 L (31.0-37.0) g/dL RDW 18.8 H (11.5-15.5) % Plt Count 539 H (150-450) k/uL Eosinophils # 0.8 H (0-0.7) k/uL Sodium 134 L (137-145) mmol/L Chloride 97 L (98-107) mmol/L Carbon Dioxide 32 H (22-30) mmol/L BUN 26 H (9-20) mg/dL Glucose 133 H (74-99) mg/dL Calcium 8.3 L (8.4-10.2) mg/dL Microbiology - Last 24 Hours (Table) 05/07/20 11:10 Gram Stain - Preliminary Chest Wound Culture - Preliminary Assessment and Plan (1) 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 Patient will need to be set up in the wound care center for an appointment next week. Patient to have home care to assist with wound VAC changes. Thank you kindly for the consultation any questions please contact the wound care center DNP note has been reviewed and discussed with Dr. Pittman and the impression and plan of care has been directed as dictated.
--- NOTE | 2020-05-08 14:50 | P.PN ---
Subjective Progress Note Date: 05/08/20 79-year-old male patient of Dr. guallpa with long-standing history of CAD post VT with history of PCI and stent placement of the right coronary artery disease over 10 years ago who is known to have history of hypertension hyperlipidemia and previous history of tobacco dependency patient has been doing natural management for many years started noticing significant shortness of breath and decrease endurance when attempted to walk and ambulate was seen Dr. FRANK patel and end up going for stress test showed moderate area of infarct ischemic change patient ended up going for heart cath on 03/09/2020 finding was consistent with 80 percentile blockage of the LAD, 70% blockage in the mid LAD, 90% blockage of the circumflex and 95% blockage of the RCA, underwent 4 vessel bypass surgery on 2019 and was sent to the ICU on mechanical ventilation. Postoperatively patient did experience atrial fibrillation/atrial flutter and was placed on a meter on an ad guzman. (. He also underwent synchronized cardioversion with return to normal sinus rhythm. Patient also received 1 unit of packed RBC while at [facility] for acute blood loss anemia. He was also found to have urinary retention for which he was placed on Grimm catheter and was sent to inpatient rehab at [facility]. Patient was given iron infusion at [facility] and 2 attempts were made to remove Grimm catheter without any success. Patient is started on Flomax to help with urine retention. Patient was noted to be short of breath on discharge to inpatient rehab on 04/25 and found to have left pleural effusion. Patient was diuresed with IV Lasix. Patient was doing well and was planned to be discharged on 05/04 but on 05/03 , he developed she worsening shortness of breath with drop in oxygen saturation to 74% on nonrebreather, lisa ent was placed in on BiPAP and was transferred to the ICU. Chest CT was obtained that showed an congestive heart failure with mild infiltrate. Pulmonary attempted thoracentesis with minimal output. The echo suggested an EF of 50% hemoglobin of 6.9 requiring transfusion. Urine and blood culture was was positive for Serratia and patient was placed on cefepime by Dr. Chris On 05/06 she was noted to have increased redness and drainage around the incision site from coronary artery bypass graft. Infectious disease recommended transcend back to [facility] for reevaluation by cardiothoracic surgery. Patient was also initiated on Proscar to help with urine retention. Since the Grimm catheter was leaking, the nurse removed the Grimm catheter for an attempt of Grimm catheter. Nurse was instructed to obtain bladder scan every 6 hour. Patient was found to have urinary retention greater than 600 mL with multiple attempts by the patient to urinate without any success. Grimm catheter was placed back in. On reevaluation today, patient denies any shortness of breath. He did have incision and drainage and packing of the wound done at bedside by Dr. Olivo on . Patient denies any episode of fever overnight he denies any shortness of breath. Vitals are stable temperature 97.7 pulse 73 respiratory rate 19 and blood pressure 106/58. Labs are suggestive hemoglobin 7.9 and MCV 100.9 liz telet count 541 Eucerin CRP are elevated creatinine 0.89 sodium 135 BUN 24 Swelling in the lower extremity has improved continue IV Lasix. Continue cefepime and vancomycin per ID recommendation. 05/08:patient states he did not sleep well last night. He states he was woken this many times during the night. Wound has been packed this morning. He denies having any fever or chills. No diarrhea. No cough and no constipation. He is reaching 1000 on incentive spirometry. Patient has been afebrile, heart rate 63, blood pressure 96/61, pulse ox 90% on room air. WBC 9.3, hemoglobin 8.2, platelet count 539. Sodium 134. Potassium 4, chloride 96, CO2 32, BUN 26 and creatinine 0.93. Blood sugar 133. Patient has been seen by the wound care team with recommendations to apply Adaptic overexpose hardwire, negative pressure wound therapy to be changed on Fridays and patient isael l follow-up in the wound care center next week. Discharge plan most likely be home with home care and IV antibiotics. Review of Systems Constitutional: Denies chills, Denies fever, Denies lethargy, Denies malaise, Denies poor appetite, Denies weakness, Denies weight loss Eyes: denies decreased vision, denies diplopia, denies discharge, denies pain Ears, nose, mouth and throat: Denies dental pain, Denies headache, Denies nasal discharge, Denies nose pain Cardiovascular: Denies chest pain, Denies decreased exercise tolerance, Denies edema, Denies high blood pressure, Denies irregular heart beat, Denies palpitations, Denies paroxysmal nocturnal dyspnea, Denies rapid heart beat, Denies shortness of breath Respiratory: Denies congestion, Denies cough, Denies cough with sputum, Denies dyspnea, Denies home oxygen, Denies wheezing Gastrointestinal: Denies abdominal pain, Denies change in bowel habits, Denies coffee ground emesis, Denies early satiety, Denies excessive gas, Denies heartburn, Denies hematemesis, Denies hematochezia, Denies loss of appetite, Denies nausea, Denies vomiting Genitourinary: Denies dysuria, Denies flank pain, Denies kidney stones, Denies menorrhagia, endorses urinary retention Musculoskeletal: Denies gait dysfunction, Denies limitation of motion, Denies morning stiffness, Denies muscle cramps Integumentary: Sternal wound infected, Denies brittle nails, Denies change in hair/nails, Denies darkening of skin Neurological: Denies balance difficulties, Denies change in speech, Denies double vision, Denies gait dysfunction, Denies loss of vision, Denies motor disturbance, Denies numbness, Denies paralysis, Denies paresthesias, Denies seizures Psychiatric: Denies anxiety, Denies depression Endocrine: Denies excessive sweating, Denies excessive thirst, Denies high blood sugars, Denies palpitations Hematologic/Lymphatic: Denies easy bruising, Denies lymphadenopathy Physical Examination - Constitutional General appearance: cooperative, no acute distress - EENT Eyes: anicteric sclerae, PERRLA, normal appearance ENT: hearing grossly normal - Neck Neck: no lymphadenopathy, normal ROM, no other, no rigidity, no stridor, no thyromegaly - Respiratory Respiratory: bilateral decreased air entry chest wall expansion decreased. Heart Hugger in place - Cardiovascular Rhythm: regular Heart sounds: normal: S1, S2 Abnormal Heart Sounds: no systolic murmur, no diastolic murmur, no rub, no S3 Gallop, no S4 Gallop, no click - Gastrointestinal General gastrointestinal: normal bowel sounds, soft nontender nondistended - Integumentary Integumentary: chest incision approximated, dressing in place - Neurologic Neurologic: Normal coordination normal sensation - Musculoskeletal Musculoskeletal: gait normal, strength equal bilaterally no lower extremity edema - Psychiatric Psychiatric: A&O x's 3, appropriate affect Assessment and Plan 1 post surgical infection of the sternal wound status post opening up of incision bedside and cleaning and packing the area. Wound culture has been sent at [facility]. Continue on vancomycin and cefepime per Dr. Chris. 2. CAUTI bacteremia secondary to Serratia. Septic shock resolved. Currently on vancomycin and cefepime. 3. H/o triple vessel coronary disease s/p remote inferior wall VT with RCA stent, post 4 vessel coronary artery bypass grafting with KEANE to the LAD, left radial arterial graft to the OM, SVG to the PDA, SVG to the diagonal with left radial artery harvest along with left lower extremity endoscopy Vein harvest on 04/13. On aspirin 325 mg Plavix Lipitor 4 Acute hypoxic respiratory failure with left pleural effusion, attempted thoracentesis on with minimal output continue Lasix IV 40 mg daily. Pulmonary consulted continue INR monitoring and repeat echo with ejection frac tion 50% on 05/03. 5 postop atrial flutter/ atrial fibrillation status post clip ligation of the left atrial appendage and cardioversion. Oral amiodarone, Lopressor and eliquis. 6. BPH with urinary retention requiring Grimm catheter placement. Last placed on 05/06 on Flomax twice daily on urology recommendation. Finasteride added at 5 mg by mouth daily 7. Acute blood loss anemia with bone marrow suppression status post 2 units of PRBC and iron infusion at [facility]. Continue daily CBC. Transfuse if hemoglobin less than 7. Continue iron supplementation daily 8. Systolic congestive heart failure with ejection fraction 50% with [id number] left ventricular dysfunction. Last echo obtained on 05/03 9. hypertension. Continue amiodarone, Lopressor. 10. hyperlipidemia: atorvastatin 40 mg daily resume medication. 11 history of osteoarthritis post right total knee arthroplasty. 12. hyperglycemia. NovoLog scale. 13 DVT prophylaxis: Eliquis. 14 GI prophylaxis: Pantoprazole 40 by mouth with breakfast CODE STATUS: Full code. Discharge plan: home with home care, IV antibiotics, wound VAC Impression and plan of care have been directed as dictated by the signing physician. Alisson Penny nurse practitioner acting as scribe for signing physician. Objective - Vital Signs Vital signs: Vital Signs Temp 98.1 F 05/08/20 08:00 Pulse 67 05/08/20 08:00 Resp 16 05/08/20 08:00 BP 114/61 05/08/20 08:00 Pulse Ox 95 05/08/20 08:00 Intake & Output 05/07/20 05/08/20 05/08/20 18:59 06:59 18:59 Intake Total 1550 0 Output Total 2550 1150 Balance -1000 -1150 0 Weight 85 kg Intake: Intake, IV Titration 350 Amount Cefepime 2 gm In Sodium 100 Chloride 0.9% 100 ml @ 200 mls/hr IVPB ONCE ONE Rx#:[id number] Vancomycin 1,500 mg In 250 Sodium Chloride 0.9% 250 ml @ 125 mls/hr IVPB Q16H ON LICENSE OF [facility] Rx#:[id number] Oral 1200 0 Output: Urine 2550 1150 Other: Voiding Method Indwelling Catheter Indwelling Catheter Indwelling Catheter # Voids 1 - Labs CBC & Chem 7: 05/08/20 09:28 05/08/20 09:28 Labs: Abnormal Lab Results - Last 24 Hours (Table) 05/08/20 05/08/20 Range/Units 09:28 09:28 RBC 2.63 L (4.30-5.90) m/uL Hgb 8.2 L (13.0-17.5) gm/dL Hct 26.7 L (39.0-53.0) % MCV 101.5 H (80.0-100.0) fL MCHC 30.6 L (31.0-37.0) g/dL RDW 18.8 H (11.5-15.5) % Plt Count 539 H (150-450) k/uL Eosinophils # 0.8 H (0-0.7) k/uL Sodium 134 L (137-145) mmol/L Chloride 97 L (98-107) mmol/L Carbon Dioxide 32 H (22-30) mmol/L BUN 26 H (9-20) mg/dL Glucose 133 H (74-99) mg/dL Calcium 8.3 L (8.4-10.2) mg/dL Microbiology - Last 24 Hours (Table) 05/07/20 11:10 Gram Stain - Preliminary Chest Wound Culture - Preliminary
[2020-05-08] MEDS: ATORVASTATIN 40 MG TAB PO SCH (21:19)
[2020-05-08] MEDS: SENNOSIDES-DOCUSATE SODIUM 1 EACH TAB PO SCH (21:19)
--- NOTE | 2020-05-08 22:21 | PN ---
PROGRESS NOTE DATE OF SERVICE: 05/08/2020 REASON FOR FOLLOWUP: 1. Serratia marcescens bacteremia secondary to urinary source. 2. Sternal wound infection. INTERVAL HISTORY: The patient is currently afebrile. The patient is breathing comfortably. The patient denies having any chest pain or shortness of breath or cough. Overall pain and discomfort to the chest wall has improved. No nausea, vomiting. No abdominal pain. No diarrhea. PHYSICAL EXAMINATION: Blood pressure 146/77 with a pulse of 73, temperature 98.7. He is 93% on room air. General description is an elderly male up in the chair in no distress. RESPIRATORY SYSTEM: Unlabored breathing with decreased breath sounds at the base. No wheeze. HEART: S1, S2. Regular rate and rhythm. ABDOMEN: Soft. No tenderness. LABS: Hemoglobin 8.2, white count 9.3, BUN of 26, creatinine 0.93. Chest wall wound cultures are currently pending. DIAGNOSTIC IMPRESSION AND PLAN: 1. Patient with sternal wound infection, cellulitis, status post debridement. Cultures pending. Continue vancomycin. 2. Patient with Serratia marcescens bacteremia secondary to urinary source, for which the patient is currently covered with cefepime 2 grams q.12, to continue. Continue with supportive care. MMODL / IJN: [id number] /
[2020-05-09] MEDS: FERROUS SULFATE 325 MG TAB PO SCH ×2 (06:30→17:24)
[2020-05-09] MEDS: MIDODRINE 5 MG TAB PO SCH ×2 (06:30→17:23)
[2020-05-09] MEDS: PANTOPRAZOLE 40 MG TABLET PO SCH (06:30)
[2020-05-09 07:24] LABS: Calcium 8.2 mg/dL (8.4-10.2); Magnesium 2.1 mg/dL (1.6-2.3); Potassium 4.3 mmol/L (3.5-5.1)
[2020-05-09 07:37] LABS: Anisocytosis Slight; Basophils % (A) 0 %; Eosinophils # (A) 1.1 k/uL (0-0.7); Eosinophils % (A) 9 %; HCT 27.3 % (39.0-53.0); HGB 8.2 gm/dL (13.0-17.5); Hypochromasia Marked; Lymphocytes # (A) 1.6 k/uL (1.0-4.8); Lymphocytes % (A) 13 %; MCH 30.5 pg (25.0-35.0); MCHC 29.8 g/dL (31.0-37.0); MCV 102.4 fL (80.0-100.0); Macrocytosis Moderate; Mean Platelet Volume 8.7; Monocytes # (A) 0.6 k/uL (0-1.0); Monocytes % (A) 5 %; Neutrophils % (A) 73 %; Platelet Count 554 k/uL (150-450); Poikilocytosis Slight; RBC 2.67 m/uL (4.30-5.90); WBC 12.5 k/uL (3.8-10.6)
[2020-05-09] MEDS: BUDESONIDE 0.5 MG/2 ML NEBU INHALATION SCH ×2 (08:26→19:50)
--- NOTE | 2020-05-09 09:02 | XR ---
EXAMINATION TYPE: XR chest 2V DATE OF EXAM: 05/09/2020 COMPARISON: Chest x-ray 2 days ago. HISTORY: Post open cardiac surgery. TECHNIQUE: Frontal and lateral views of the chest are obtained. FINDINGS: Overlying sternal wires and mediastinal clips along with and left atrial appendage clip ar e all redemonstrated. Persistent cardiomegaly with small to tiny left greater than right pleural effu sions. Increasing central vascular congestion felt present. Overlying tubes and devices noted makes e valuation suboptimal. Osseous structures are intact. IMPRESSION: Cardiomegaly with small left greater than right pleural effusions redemonstrated. Increa sing central vascular congestion noted. Correlate for fluid overload state and/or CHF exacerbation
[2020-05-09] MEDS: METOPROLOL TARTRATE 12.5 MG TAB PO SCH ×2 (09:29→21:03)
[2020-05-09] MEDS: CEFEPIME 2 GM in SODIUM CHLORIDE 0.9% 100 ML IVPB SCH ×2 (09:29→21:01)
[2020-05-09] MEDS: TAMSULOSIN 0.4 MG CAP.ER.24H PO SCH ×2 (09:30→21:03)
[2020-05-09] MEDS: ASCORBIC ACID 500 MG TAB PO SCH ×2 (09:30→21:03)
[2020-05-09] MEDS: MULTIVITAMINS, THERA 1 EACH TAB PO SCH (09:30)
[2020-05-09] MEDS: ASPIRIN 325 MG TAB PO SCH (09:30)
[2020-05-09] MEDS: HEPARIN SODIUM,PORCINE 5,000 UNIT/ML 1 ML VIAL SQ SCH ×3 (09:30→23:51)
[2020-05-09] MEDS: FINASTERIDE 5 MG TAB PO SCH (09:30)
[2020-05-09] MEDS: AMIODARONE 200 MG TAB PO SCH (09:30)
[2020-05-09] MEDS: FUROSEMIDE 10 MG/ML 4 ML VIAL IV SCH ×2 (09:30→21:03)
--- NOTE | 2020-05-09 09:57 | P.PN ---
Subjective Progress Note Date: 05/09/20 Principal diagnosis: Sternal incision infection, likely superficial, Serratia UTI and bacteremia present at [facility], left pleural effusion at [facility] with attempted thoracentesis. Previous medical history of coronary artery disease, status post remote inferior wall LA with RCA stent, status post four-vessel CABG 04/15/2020, with postoperative acute blood loss anemia status post transfusion, atrial fibrillation/flutter status post clip ligation of the left atrial appendage and cardioversion, urinary retention with Grimm catheter replacement, mild to moderate left ventricular dysfunction, chronic systolic heart failure, preoperative EF 40-45%, EF 50% on TTE 05/03, mild mitral valve regurgitation, moderately dilated ascending aorta 4.2 cm, hypertension, hyperlipidemia, previous tobacco dependence, remote history of pneumonia, BPH, and family history of premature coronary artery disease The patient's currently sitting up in a recliner in the cardiac stepdown unit in no acute distress. Complains of overall chest discomfort which is controlled with Tylenol, denies shortness of breath currently. States he feels better than yesterday. Remains afebrile. Remains in normal sinus rhythm. Wound VAC placed yesterday. Remains on IV vancomycin and cefepime per infectious disease, reportedly superficial sternal incision preliminarily positive for staph from culture taken 05/06 at [facility], deep culture wound taken at Gram stain preliminarily negative. Patient has been ambulatory in the hallway without difficulty Objective - Vital Signs Vital signs: Vital Signs Temp 98.0 F 05/09/20 08:49 Pulse 75 05/09/20 08:49 Resp 18 05/09/20 08:49 BP 100/56 05/09/20 08:49 Pulse Ox 96 05/09/20 08:49 Intake & Output 05/08/20 05/09/20 05/09/20 18:59 06:59 18:59 Intake Total 358 350 Output Total 1000 1200 Balance -642 -1200 350 Intake: Intake, IV Titration 350 Amount Cefepime 2 gm In Sodium 100 Chloride 0.9% 100 ml @ 25 mls/hr IVPB Q12HR [facility] Rx #:[id number] Vancomycin 1,500 mg In 250 Sodium Chloride 0.9% 250 ml @ 125 mls/hr IVPB Q16H [facility] Rx#:[id number] Oral 358 Output: Urine 1000 1200 Other: Voiding Method Indwelling Catheter Indwelling Catheter Indwelling Catheter # Voids 1 - Constitutional General appearance: Present: cooperative, no acute distress - Respiratory Details: Lungs sounds diminished bilaterally. Respirations even, nonlabored. Currently on room air with oxygen saturation 94%. Able to achieve 1250 mL on his incentive spirometry. Strong cough. - Cardiovascular Details: S1, S2 present. Regular rate and rhythm, sinus rhythm on telemetry. Sternum stable. Palpable peripheral pulses bilaterally. No edema present. Heart hugger in place with patient demonstrating appropriate use. SCDs present. - Gastrointestinal Gastrointestinal Comment(s): Abdomen soft, nontender, nondistended. Active bowel sounds present 4 quadrants. Tolerating diet. - Genitourinary Genitourinary Comment(s): Grimm catheter present draining clear, yellow urine. Output 1200 mL overnight. - Integumentary Integumentary Comment(s): Skin is warm and dry with evidence of good perfusion. Anterior chest incision opened, wound VAC applied yesterday - Neurologic Neurologic: Present: CNII-XII intact - Musculoskeletal Musculoskeletal: Present: gait normal, strength equal bilaterally - Psychiatric Psychiatric: Present: A&O x's 3, appropriate affect, intact judgment & insight - Allied health notes Allied health notes reviewed: nursing - Labs CBC & Chem 7: 05/09/20 06:23 05/09/20 06:23 Labs: Abnormal Lab Results - Last 24 Hours (Table) 05/08/20 05/08/20 05/09/20 Range/Units 09:28 09:28 06:23 WBC 12.5 H (3.8-10.6) k/uL RBC 2.63 L 2.67 L (4.30-5.90) m/uL Hgb 8.2 L 8.2 L (13.0-17.5) gm/dL Hct 26.7 L 27.3 L (39.0-53.0) % MCV 101.5 H 102.4 H (80.0-100.0) fL MCHC 30.6 L 29.8 L (31.0-37.0) g/dL RDW 18.8 H 19.0 H (11.5-15.5) % Plt Count 539 H 554 H (150-450) k/uL Neutrophils # 9.0 H (1.3-7.7) k/uL Eosinophils # 0.8 H 1.1 H (0-0.7) k/uL Sodium 134 L (137-145) mmol/L Chloride 97 L (98-107) mmol/L Carbon Dioxide 32 H (22-30) mmol/L BUN 26 H (9-20) mg/dL Glucose 133 H (74-99) mg/dL Calcium 8.3 L (8.4-10.2) mg/dL 05/09/20 Range/Units 06:23 WBC (3.8-10.6) k/uL RBC (4.30-5.90) m/uL Hgb (13.0-17.5) gm/dL Hct (39.0-53.0) % MCV (80.0-100.0) fL MCHC (31.0-37.0) g/dL RDW (11.5-15.5) % Plt Count (150-450) k/uL Neutrophils # (1.3-7.7) k/uL Eosinophils # (0-0.7) k/uL Sodium 136 L (137-145) mmol/L Chloride (98-107) mmol/L Carbon Dioxide 33 H (22-30) mmol/L BUN 29 H (9-20) mg/dL Glucose (74-99) mg/dL Calcium 8.2 L (8.4-10.2) mg/dL - Imaging and Cardiology Chest x-ray: report reviewed, image reviewed Assessment and Plan Assessment: 1. Sternal incision infection, likely superficial, deep culture pending but Gram stain preliminarily negative 2. Serratia UTI and bacteremia present at [facility] 3. Left pleural effusion at [facility] with attempted thoracentesis 4. History of coronary artery disease, status post remote inferior wall LA with RCA stent, status post four-vessel CABG 04/15/2020, with postoperative acute blood loss anemia status post transfusion, atrial fibrillation/flutter status post clip ligation of the left atrial appendage and cardioversion, urinary retention with Grimm catheter replacement 5. Mild to moderate left ventricular dysfunction, chronic systolic heart failure, preoperative EF 40-45%, EF 50% on TTE 05/03 6. Mild mitral valve regurgitation 7. Moderately dilated ascending aorta 4.2 cm 8. History of hypertension 9. Hyperlipidemia 10. Previous tobacco dependence 11. Remote history of pneumonia 11. BPH 12. Family history of premature coronary artery disease Plan: 1. Wound VAC placed yesterday by wound care center. Wound VAC needs to be changed Friday, Friday, Friday. Friday and Friday can be changed by home care nurse, Friday can be changed in the wound care center 2. Continue antibiotics per Dr. Chris. If the patient is to go home on IV antibiotics will need PICC line. Son is willing to administer IV antibiotics 3. Continue full strength aspirin, statin, beta branden therapy 4. Continue amiodarone by mouth for 1 week then discontinue per taper orders. Eliquis discontinued, patient is not to be discharged home on Eliquis 5. Bronchodilators, inhaled steroids per pulmonology. Encourage incentive s pirometry use 6. Increase activity, ambulate as tolerated. PT consulted 7. Daily weights and strict accurate intake and output 8. Continue IV Lasix, iron/vitamin C, Flomax/Proscar 9. Continue postoperative lifting restrictions 10. GI/DVT prophylaxis 11. Will monitor daily labs and x-rays. No transfusion necessary at this time 12. Patient may be discharged to home with home care from cardiothoracic standpoint when okay with other services, and once recommendations are made by Dr. Chris for home antibiotics. Patient should follow-up with Dr. Olivo in the office in 2 weeks 13. More recommendations to follow Time with Patient: Greater than 30
[2020-05-09] MEDS ORDERED: VANCOMYCIN TROUGH DUE 1 EACH MISC MISCELLANE ONE (11:00)
[2020-05-09] MEDS: VANCOMYCIN 1,500 MG in SODIUM CHLORIDE 0.9% 250 ML IVPB SCH (11:48)
--- NOTE | 2020-05-09 11:59 | P.PN ---
Subjective Progress Note Date: 05/09/20 Principal diagnosis: Sternal wound infection, status post recent 4 vessel bypass grafting, Serratia bacteremia 79-year-old male patient whom I transferred from [facility] to [facility] due to a complication of a surgical abdominal wound infection. The patient was seen on the medical floor and the [facility] and there thoracotomy scar was obviously infected erythematous and red and was draining. I was able to squeeze out some purulent material. Discussed the case with ID and I made to transfer to [facility]. The patient is known to have triple-vessel coronary artery disease post inferior wall MIand RCA stent, status post four-vessel CABG 04/13/2020, mild to moderate left ventricular dysfunction with chronic systolic heart failure and preoperative ejection fraction 40-45%, dilated ascending aorta measuring 4.2 cm, hype rtension, hyperlipidemia, previous tobacco dependence, pneumonia, BPH, and family history of premature coronary artery disease. He had a positive stress test in February and was recommended to undergo heart catheterization which was completed in March. This demonstrated 80% stenosis to the proximal LAD, 70% stenosis to the mid LAD, 90% stenosis to the circumflex coronary artery, and 95% stenosis to the right coronary artery. Subsequently he was recommended to undergo CABG which was completed 04/13/2020. He did experience postoperative atrial fibrillation/atrial flutter and was placed on amiodarone and Eliquis; in addition he underwent synchronized cardioversion with return to normal sinus rhy thm. He also experienced urinary retention requiring replacement of his Grimm catheter, and acute blood loss anemia treated with blood transfusion. Otherwise he had an uneventful hospitalization and was discharged to [facility] inpatient rehab on postoperative day #6 for physical and occupational therapy. He was progressing as expected at [facility] and was expected to be discharged to home with home care this last Friday. Unfortunately Friday night he developed shortness of breath and oxygen desaturation and was felt to be in acute heart failure. He was transferred to the intensive care unit and further investigation showed that the patient had become septic from his sedati on Serratia urine checked infection. He did experience some obstructive uropathy. A Grimm cath was inserted and he was given Flomax and the Grimm catheter still in place. He remains on IV cefepime regarding his sepsis and the patient was also started on vancomycin. Awaiting cardiothoracic surgical evaluation regarding the surgical wound infection. On 05/08/2020 patient seen in follow-up on selective care unit, he sitting up in the recliner, in no acute distress, room air pulse ox is 98%, hemodynamically patient is stable, breathing is comfortable, no worsening dyspnea, no fever or chills since admission, he remains on cefepime and vancomycin. His sternal wound is still draining significantly, requiring frequent dressing changes, the output is serous in nature, cardiothoracic surgery is following, ID service is following. Lung sounds are clear. Today's labs have been reviewed, showing with blood cell count 9.3, hemoglobin of 8.2, sodium is 134, potassium is 4.0, chloride is 97, CO2 32, B1 is 26, creatinine 0.93. Patient had anterior chest incision opened at the bedside, and deep cultures were taken and the wound was cleaned and packed. No altered mentation, vital signs are stable, working on incentive spirometer, achieving 1250 on the today. On 05/09/2020 patient seen in follow-up on selective care unit, sitting up in a recliner, in no acute distress, room air pulse ox is 96%, no complaints of respiratory distress, afebrile, hemodynamically stable, he had a wound VAC applied to his sternal wound, and a suction catheter is one third fall with pink purulent drainage. Remains on antibiotics including vancomycin and cefepime, ID service is following. Lung sounds are clear, diminished at the bases, patient is working on the incentive spirometer, today's labs have been noted, with blood cell count is 12.5, hemoglobin is 8.2, sodium is 136, potassium is 4.3, chloride is 99, CO2 33, B1 is 29 creatinine 0.9. Today's chest x-ray shows some cardiomegaly with small left greater than right pleural effusions, and increasing central vascular congestion with consideration for fluid overload and/or CHF exacerbation. Patient remains on IV Lasix at 40 mg every 12 hours and is in the 1.8 L negative fluid balance over the last 24 hours. No worsening dyspnea, no worsening oxygenation. Objective - Vital Signs Vital signs: Vital Signs Temp 98.0 F 05/09/20 08:49 Pulse 75 05/09/20 08:49 Resp 18 05/09/20 08:49 BP 100/56 05/09/20 08:49 Pulse Ox 96 05/09/20 08:49 Intake & Output 05/08/20 05/09/20 05/09/20 18:59 06:59 18:59 Intake Total 358 350 Output Total 1000 1200 Balance -642 -1200 350 Intake: Intake, IV Titration 350 Amount Cefepime 2 gm In Sodium 100 Chloride 0.9% 100 ml @ 25 mls/hr IVPB Q12HR [facility] Rx #:[id number] Vancomycin 1,500 mg In 250 Sodium Chloride 0.9% 250 ml @ 125 mls/hr IVPB Q16H MANUEL Rx#:[id number] Oral 358 Output: Urine 1000 1200 Other: Voiding Method Indwelling Catheter Indwelling Catheter Indwelling Catheter # Voids 1 - Exam GENERAL EXAM: Alert, very pleasant, 79-year-old white male, on room air comfortable in no apparent distress. Room air pulse ox is 96% HEAD: Normocephalic/atraumatic. EYES: Normal reaction of pupils, equal size. Conjunctiva pink, sclera white. NOSE: Clear with pink turbinates. THROAT: No erythema or exudates. NECK: No masses, no JVD, no thyroid enlargement, no adenopathy. CHEST: No chest wall deformity. Symmetrical expansion. Sternal incision covered with the wound VAC, and the canister is up one third fall with pink tinged purulent drainage LUNGS: Equal air entry with no crackles, wheeze, rhonchi or dullness. CVS: Regular rate and rhythm, normal S1 and S2, no gallops, no murmurs, no rubs ABDOMEN: Soft, nontender. No hepatosplenomegaly, normal bowel sounds, no guarding or rigidity. EXTREMITIES: No clubbing, no edema, no cyanosis, 2+ pulses and upper and lower extremities. MUSCULOSKELETAL: Muscle strength and tone normal. SPINE: No scoliosis or deformity SKIN: No rashes CENTRAL NERVOUS SYSTEM: Alert and oriented -3. No focal deficits, tone is normal in all 4 extremities. PSYCHIATRIC: Alert and oriented -3. Appropriate affect. Intact judgment and insight. - Labs CBC & Chem 7: 05/09/20 06:23 05/09/20 06:23 Labs: Abnormal Lab Results - Last 24 Hours (Table) 05/09/20 05/09/20 Range/Units 06:23 06:23 WBC 12.5 H (3.8-10.6) k/uL RBC 2.67 L (4.30-5.90) m/uL Hgb 8.2 L (13.0-17.5) gm/dL Hct 27.3 L (39.0-53.0) % MCV 102.4 H (80.0-100.0) fL MCHC 29.8 L (31.0-37.0) g/dL RDW 19.0 H (11.5-15.5) % Plt Count 554 H (150-450) k/uL Neutrophils # 9.0 H (1.3-7.7) k/uL Eosinophils # 1.1 H (0-0.7) k/uL Sodium 136 L (137-145) mmol/L Carbon Dioxide 33 H (22-30) mmol/L BUN 29 H (9-20) mg/dL Calcium 8.2 L (8.4-10.2) mg/dL Assessment and Plan Plan: Assessment: 1 infection of the sternal wound, evaluated by cardiothoracic surgery, the sternal wound incision was incised and drained at the bedside, deep cultures were taken, and the wound is currently packed. The patient is currently on accommodation cefepime and vancomycin. Cultures were obtained and Gram stain showed no organisms. Wound VAC has been applied to continuous suction 2 recent septic shock secondary to Serratia UTI. The patient was bacteremic and the patient could have also seeded his sternal wound. 3 coronary artery disease with previous inferior wall AL and previous stenting of RCA with subsequent four-vessel bypass surgery on 04/15/2020 4 proximal atrial fibrillation/flutter postop, current rhythm is sinus 5 obstructive uropathy and urinary retention and patient has a Grimm catheter in place currently on Flomax 6 CHF with an ejection fraction 40-45% 7 mildly dilated ascending aorta measuring 4.2 cm 8 hypertension 9 hyperlipidemia 10 bilateral pleural effusions post bypass surgery and the patient got diuresed adequately with IV Lasix with an attempted thoracentesis of the drained minimal amount of fluid from the left lung. 11 BPH Plan: Today's chest x-ray has been reviewed showing fluid overload, interstitial edema, patient remains on IV Lasix, and maintain negative fluid balance, maintaining stable O2 saturations on room air, no worsening dyspnea, labs have been noted, patient remains on IV antibiotics, continue encouraging deep breathi ng and coughing, wound VAC has been applied to the sternal wound, we'll continue to follow the patient along with cardiothoracic surgery, ID service and wound care service I performed a history & physical examination of the patient and discussed their management with my nurse practitioner, Amanda Hercules. I reviewed the nurse practitioner's note and agree with the documented findings and plan of care. Lung sounds are positive for clear breath sounds. The findings and the impression was discussed with the patient. I attest to the documentation by the nurse practitioner. Time with Patient: Less than 30
--- NOTE | 2020-05-09 13:24 | P.PN ---
Subjective Progress Note Date: 05/09/20 79-year-old male patient of Dr. guallpa with long-standing history of CAD post [place] with history of PCI and stent placement of the right coronary artery disease over 10 years ago who is known to have history of hypertension hyperlipidemia and previous history of tobacco dependency patient has been doing natural management for many years started noticing significant shortness of breath and decrease endurance when attempted to walk and ambulate was seen Dr. FRANK patel and end up going for stress test showed moderate area of infarct ischemic change patient ended up going for heart cath on 03/09/2020 finding was consistent with 80 percentile blockage of the LAD, 70% blockage in the mid LAD, 90% blockage of the circumflex and 95% blockage of the RCA, underwent 4 vessel bypass surgery on 2019 and was sent to the ICU on mechanical ventilation. Postoperatively patient did experience atrial fibrillation/atrial flutter and was placed on a meter on an ad guzman. (. He also underwent synchronized cardioversion with return to normal sinus rhythm. Patient also received 1 unit of packed RBC while at [facility] for acute blood loss anemia. He was also found to have urinary retention for which he was placed on Grimm catheter and was sent to inpatient rehab at [facility]. Patient was given iron infusion at [facility] and 2 attempts were made to remove Grimm catheter without any success. Patient is started on Flomax to help with urine retention. Patient was noted to be short of breath on discharge to inpatient rehab on 04/25 and found to have left pleural effusion. Patient was diuresed with IV Lasix. Patient was doing well and was planned to be discharged on 05/04 but on 05/03 , he developed she worsening shortness of breath with drop in oxygen saturation to 74% on nonrebreather, lisa ent was placed in on BiPAP and was transferred to the ICU. Chest CT was obtained that showed an congestive heart failure with mild infiltrate. Pulmonary attempted thoracentesis with minimal output. The echo suggested an EF of 50% hemoglobin of 6.9 requiring transfusion. Urine and blood culture was was positive for Serratia and patient was placed on cefepime by Dr. Chris On 05/06 she was noted to have increased redness and drainage around the incision site from coronary artery bypass graft. Infectious disease recommended transcend back to [facility] for reevaluation by cardiothoracic surgery. Patient was also initiated on Proscar to help with urine retention. Since the Grimm catheter was leaking, the nurse removed the Grimm catheter for an attempt of Grimm catheter. Nurse was instructed to obtain bladder scan every 6 hour. Patient was found to have urinary retention greater than 600 mL with multiple attempts by the patient to urinate without any success. Grimm catheter was placed back in. On reevaluation today, patient denies any shortness of breath. He did have incision and drainage and packing of the wound done at bedside by Dr. Olivo on . Patient denies any episode of fever overnight he denies any shortness of breath. Vitals are stable temperature 97.7 pulse 73 respiratory rate 19 and blood pressure 106/58. Labs are suggestive hemoglobin 7.9 and MCV 100.9 liz telet count 541 Eucerin CRP are elevated creatinine 0.89 sodium 135 BUN 24 Swelling in the lower extremity has improved continue IV Lasix. Continue cefepime and vancomycin per ID recommendation. 05/08:patient states he did not sleep well last night. He states he was woken many times during the night. Wound has been packed this morning. He denies having any fever or chills. No diarrhea. No cough and no constipation. He is reaching 1000 on incentive spirometry. Patient has been afebrile, heart rate 63, blood pressure 96/61, pulse ox 90% on room air. WBC 9.3, hemoglobin 8.2, platelet count 539. Sodium 134. Potassium 4, chloride 96, CO2 32, BUN 26 and creatinine 0.93. Blood sugar 133. Patient has been seen by the wound care team with recommendations to apply Adaptic overexpose hardwire, negative pressure wound therapy to be changed on Fridays and patient will follow- up in the wound care center next week. Discharge plan most likely be home with home care and IV antibiotics. 05/09: Repeat chest x-ray reveals cardiomegaly with small left greater than right pleural effusions redemonstrated. Increasing central vascular congestion noted. Correlate for fluid overload state and/or heart failure exacerbation. Repeat blood work reveals W BC 12.5, hemoglobin 8.2, platelet count 554. Sodium 136, potassium 4.3, chloride 99, CO2 33, BUN 29 and creatinine 0.99. Wound VAC ordered for home. Discussed case with Dr. Ordonez in and PICC line will be ordered. Patient states that his breathing is fair. He is concerned that he is on somewhat IV medication before going home. He is using incentive spirometry. Anticipate discharge on Friday or . Patient has been cleared for discharge by cardiothoracic surgery. Review of Systems Constitutional: Denies chills, Denies fever, Denies lethargy, Denies malaise, Denies poor appetite, Denies weakness, Denies weight loss Eyes: denies decreased vision, denies diplopia, denies discharge, denies pain Ears, nose, mouth and throat: Denies dental pain, Denies headache, Denies nasal discharge, Denies nose pain Cardiovascular: Denies chest pain, reports decreased exercise tolerance, Denies edema, Denies high blood pressure, Denies irregular heart beat, Denies palpitations, Denies paroxysmal nocturnal dyspnea, Denies rapid heart beat, Denies shortness of breath Respiratory: Denies congestion, Denies cough, Denies cough with sputum, reports dyspnea, Denies home oxygen, Denies wheezing Gastrointestinal: Denies abdominal pain, Denies change in bowel habits, Denies coffee ground emesis, Denies early satiety, Denies excessive gas, Denies heartburn, Denies hematemesis, Denies hematochezia, Denies loss of appetite, Denies nausea, Denies vomiting Genitourinary: Denies dysuria, Denies flank pain, Denies kidney stones, Denies menorrhagia, endorses urinary retention Musculoskeletal: Denies gait dysfunction, Denies limitation of motion, Denies morning stiffness, Denies muscle cramps Integumentary: Sternal wound infected, Denies brittle nails, Denies change in hair/nails, Denies darkening of skin Neurological: Denies balance difficulties, Denies change in speech, Denies double vision, Denies gait dysfunction, Denies loss of vision, Denies motor disturbance, Denies numbness, Denies paralysis, Denies paresthesias, Denies seizures Psychiatric: Denies anxiety, Denies depression Endocrine: Denies excessive sweating, Denies excessive thirst, Denies high blood sugars, Denies palpitations Hematologic/Lymphatic: Denies easy bruising, Denies lymphadenopathy Physical Examination - Constitutional General appearance: cooperative, no acute distress while resting in recliner with legs elevated. - EENT Eyes: anicteric sclerae, PERRLA, normal appearance ENT: hearing grossly normal - Neck Neck: no lymphadenopathy, normal ROM, no other, no rigidity, no stridor, no thyromegaly - Respiratory Respiratory: bilateral decreased air entry chest wall expansion decreased. Heart Hugger in place - Cardiovascular Rhythm: regular Heart sounds: normal: S1, S2 Abnormal Heart Sounds: no systolic murmur, no diastolic murmur, no rub, no S3 Gallop, no S4 Gallop, no click - Gastrointestinal General gastrointestinal: normal bowel sounds, soft nontender nondistended - Integumentary Integumentary: chest incision approximated, dressing in place - Neurologic Neurologic: Normal coordination normal sensation - Musculoskeletal Musculoskeletal: gait normal, strength equal bilaterally no lower extremity edema - Psychiatric Psychiatric: A&O x's 3, appropriate affect Assessment and Plan 1. Post surgical infection of the sternal wound status post opening up of incision bedside and cleaning and packing the area. Wound culture has been sent at [facility]. Continue on vancomycin and cefepime per Dr. Chris. PICC line ordered. 2. CAUTI bacteremia secondary to Serratia. Septic shock resolved. Currently on vancomycin and cefepime. 3. H/o triple vessel coronary disease s/p remote inferior wall [place] with RCA stent, post 4 vessel coronary artery bypass grafting with KEANE to the LAD, left radial arterial graft to the OM, SVG to the PDA, SVG to the diagonal with left radial artery harvest along with left lower extremity endoscopy Vein harvest on 04/13. On aspirin 325 mg Plavix Lipitor 4. Acute hypoxic respiratory failure with left pleural effusion, attempted thoracentesis on with minimal output continue Lasix IV 40 mg twice daily. Pulmonary consulted and repeat echo with ejection fraction 50% on 05/03. 5. postop atrial flutter/ atrial fibrillation status post clip ligation of the left atrial appendage and cardioversion. Oral amiodarone, Lopressor and eliquis. 6. BPH with urinary retention requiring Grimm catheter placement. Last placed on 05/06 on Flomax twice daily on urology recommendation. Finasteride added at 5 mg by mouth daily 7. Acute blood loss anemia with bone marrow suppression status post 2 units of PRBC and iron infusion at [facility]. Continue daily CBC. Transfuse if hemoglobin less than 7. Continue iron supplementation daily 8. Systolic congestive heart failure with ejection fraction 50% with [id number] left ventricular dysfunction. Last echo obtained on 05/03 9. hypertension. Continue amiodarone, Lopressor. 10. hyperlipidemia: atorvastatin 40 mg daily resume medication. 11 history of osteoarthritis post right total knee arthroplasty. 12. hyperglycemia. NovoLog scale. 13 DVT prophylaxis: Eliquis. 14 GI prophylaxis: Pantoprazole 40 by mouth with breakfast CODE STATUS: Full code. Discharge plan: home with [facility], IV antibiotics, wound VAC Impression and plan of care have been directed as dictated by the signing physician. Alisson Penny nurse practitioner acting as scribe for signing physician. Objective - Vital Signs Vital signs: Vital Signs Temp 98.0 F 05/09/20 08:49 Pulse 75 05/09/20 08:49 Resp 18 05/09/20 08:49 BP 100/56 05/09/20 08:49 Pulse Ox 96 05/09/20 08:49 Intake & Output 05/08/20 05/09/20 05/09/20 18:59 06:59 18:59 Intake Total 358 Output Total 1000 1200 Balance -642 -1200 Intake: Oral 358 Output: Urine 1000 1200 Other: Voiding Method Indwelling Catheter Indwelling Catheter # Voids 1 - Labs CBC & Chem 7: 05/09/20 06:23 05/09/20 06:23 Labs: Abnormal Lab Results - Last 24 Hours (Table) 05/08/20 05/08/20 05/09/20 Range/Units 09:28 09:28 06:23 WBC 12.5 H (3.8-10.6) k/uL RBC 2.63 L 2.67 L (4.30-5.90) m/uL Hgb 8.2 L 8.2 L (13.0-17.5) gm/dL Hct 26.7 L 27.3 L (39.0-53.0) % MCV 101.5 H 102.4 H (80.0-100.0) fL MCHC 30.6 L 29.8 L (31.0-37.0) g/dL RDW 18.8 H 19.0 H (11.5-15.5) % Plt Count 539 H 554 H (150-450) k/uL Neutrophils # 9.0 H (1.3-7.7) k/uL Eosinophils # 0.8 H 1.1 H (0-0.7) k/uL Sodium 134 L (137-145) mmol/L Chloride 97 L (98-107) mmol/L Carbon Dioxide 32 H (22-30) mmol/L BUN 26 H (9-20) mg/dL Glucose 133 H (74-99) mg/dL Calcium 8.3 L (8.4-10.2) mg/dL 05/09/20 Range/Units 06:23 WBC (3.8-10.6) k/uL RBC (4.30-5.90) m/uL Hgb (13.0-17.5) gm/dL Hct (39.0-53.0) % MCV (80.0-100.0) fL MCHC (31.0-37.0) g/dL RDW (11.5-15.5) % Plt Count (150-450) k/uL Neutrophils # (1.3-7.7) k/uL Eosinophils # (0-0.7) k/uL Sodium 136 L (137-145) mmol/L Chloride (98-107) mmol/L Carbon Dioxide 33 H (22-30) mmol/L BUN 29 H (9-20) mg/dL Glucose (74-99) mg/dL Calcium 8.2 L (8.4-10.2) mg/dL
[2020-05-09] MEDS ORDERED: LIDOCAINE 1% INJ 10MG/ML (20 ML MDV) ONE (14:31)
[2020-05-09 14:54] LABS: Partial Thromboplastin Time 23.8 sec (22.0-30.0); Prothrombin Time 10.6 sec (9.0-12.0)
[2020-05-09] MEDS ORDERED: LIDOCAINE 1% INJ 10MG/ML (20 ML MDV) SQ ONE (15:13)
--- NOTE | 2020-05-09 17:14 | IR ---
EXAMINATION TYPE: IR cvc insert >=5 years DATE OF EXAM: 05/09/2020 COMPARISON: Chest radiograph 05/09/2020 CLINICAL HISTORY: Infection, need for long-term antibiotics PHP [employer] DEVELOPER: Dr. Tequila Rutledge PROCEDURE: The procedure was discussed with the patient. The risks, complications, benefits, and alternatives we re discussed and any questions were answered. Informed consent was obtained. The patient was placed supine. Maximal barrier technique utilized. After informed consent, the skin o verlying the left basilic vein was localized with ultrasound and noted to be compressible and patent. An ultrasound image was obtained and submitted on the patient's chart. Sterile technique utilized w ith the ultrasound machine. The skin overlying was prepped and draped and Lidocaine used for local an esthesia. Access was gained to the vein under ultrasound guidance with a 21 gauge needle and a 0.018 inch wire was advanced. A skin warren was made with a scalpel. Access site was dilated with Peel-Away s leonard. 4 FR single lumen catheter tailored to the appropriate length of 45 cm and advanced such that the distal tip is at the cavoatrial junction. Spot image was obtained verifying PICC placement. Maddie ter was fixed to the skin and a sterile dressing was placed following hemostasis. Catheter was aspira domingo and flushed with saline. Patient was discharged from the radiology department in stable condition without immediate complication. Fluoro time: 0.6 minutes Fluoroscopic images obtained: 12 IMPRESSION: Status post ultrasound-guided and fluoroscopic-guided PICC placement, ready for use.
[2020-05-09] MEDS: metOLazone 5 MG TAB PO SCH (17:27)
--- NOTE | 2020-05-09 17:35 | PN ---
PROGRESS NOTE DATE OF SERVICE: 05/09/2020 REASON FOR FOLLOWUP: 1. Serratia marcescens bacteremia secondary to UTI. 2. Sternal wall infection. INTERVAL HISTORY: The patient is currently afebrile. The patient is breathing comfortably. The patient did have wound V.A.C. application per the wound care nurse. No chest pain. No cough. No abdominal pain or diarrhea. PHYSICAL EXAMINATION: Blood pressure 120/67 with a pulse of 83, temperature 97.8. He is 95% on room air. General description is an elderly male up in the chair in no distress. RESPIRATORY SYSTEM: Unlabored breathing. Clear to auscultation anteriorly. HEART: S1, S2. Regular rate and rhythm. ABDOMEN: Soft. No tenderness. LABS: Hemoglobin 8.1, white count 12.5, BUN of 29, creatinine 0.99. Vancomycin level 13.5. Wound culture here has been negative. DIAGNOSTIC IMPRESSION AND PLAN: 1. Patient with a sternal wound infection. Culture has been rare skin sharad. Will follow up on the cultures at [facility]. Currently on vancomycin; to continue. 2. Patient with Serratia marcescens urinary tract infection and bacteremia. On cefepime; to continue. Discharge antibiotic on the basis of the cultures; however, will plan from PICC line, which will be placed. Continue with supportive care. MMODL / IJN: [id number] /
[2020-05-09] MEDS: ACETAMINOPHEN TAB 500 MG TAB PO PRN (21:01)
[2020-05-09] MEDS: ATORVASTATIN 40 MG TAB PO SCH (21:02)
[2020-05-09] MEDS: SENNOSIDES-DOCUSATE SODIUM 1 EACH TAB PO SCH (21:03)
[2020-05-10] MEDS ORDERED: VANCOMYCIN 1,750 MG in SODIUM CHLORIDE 0.9% 500 ML 500 ML IVPB SCH (04:00)
[2020-05-10] MEDS: FERROUS SULFATE 325 MG TAB PO SCH ×2 (06:55→18:03)
[2020-05-10] MEDS: PANTOPRAZOLE 40 MG TABLET PO SCH (06:55)
[2020-05-10] MEDS: MIDODRINE 5 MG TAB PO SCH ×2 (06:55→18:02)
[2020-05-10 07:41] LABS: Anisocytosis Slight; HCT 29.1 % (39.0-53.0); HGB 8.7 gm/dL (13.0-17.5); Hypochromasia Marked; MCH 30.6 pg (25.0-35.0); MCHC 29.8 g/dL (31.0-37.0); MCV 102.9 fL (80.0-100.0); Macrocytosis Moderate; Mean Platelet Volume 8.3; Platelet Count 586 k/uL (150-450); Poikilocytosis Slight; RBC 2.82 m/uL (4.30-5.90); RDW 19.2 % (11.5-15.5); WBC 13.5 k/uL (3.8-10.6)
[2020-05-10 07:52] LABS: African American GFR (CKD) >90 (>60 ml/min/1.73 sqM); Anion Gap 4 mmol/L; Blood Urea Nitrogen 28 mg/dL (9-20); Calcium 8.5 mg/dL (8.4-10.2); Carbon Dioxide 30 mmol/L (22-30); Chloride 99 mmol/L (98-107); Glucose 105 mg/dL (74-99); Non-African American GFR(CKD) 84 (>60 ml/min/1.73 sqM); Sodium 133 mmol/L (137-145)
[2020-05-10 07:57] LABS: Potassium 4.7 mmol/L (3.5-5.1)
[2020-05-10] MEDS: BUDESONIDE 0.5 MG/2 ML NEBU INHALATION SCH ×2 (09:16→18:49)
[2020-05-10] MEDS: HEPARIN SODIUM,PORCINE 5,000 UNIT/ML 1 ML VIAL SQ SCH ×3 (09:43→23:21)
[2020-05-10] MEDS: AMIODARONE 200 MG TAB PO SCH (09:43)
[2020-05-10] MEDS: FUROSEMIDE 10 MG/ML 4 ML VIAL IV SCH ×2 (09:43→20:58)
[2020-05-10] MEDS: CEFEPIME 2 GM in SODIUM CHLORIDE 0.9% 100 ML IVPB SCH ×2 (09:43→20:58)
[2020-05-10] MEDS: ASPIRIN 325 MG TAB PO SCH (09:43)
[2020-05-10] MEDS: METOPROLOL TARTRATE 12.5 MG TAB PO SCH ×2 (09:43→20:58)
[2020-05-10] MEDS: MULTIVITAMINS, THERA 1 EACH TAB PO SCH (09:44)
[2020-05-10] MEDS: ASCORBIC ACID 500 MG TAB PO SCH ×2 (09:44→20:57)
[2020-05-10] MEDS: TAMSULOSIN 0.4 MG CAP.ER.24H PO SCH ×2 (09:44→20:57)
[2020-05-10] MEDS: FINASTERIDE 5 MG TAB PO SCH (09:44)
--- NOTE | 2020-05-10 11:26 | P.PN ---
Subjective Progress Note Date: 05/10/20 Principal diagnosis: Sternal incision infection, likely superficial, Serratia UTI and bacteremia present at [facility], left pleural effusion at [facility] with attempted thoracentesis. 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 Complains of overall chest discomfort which is controlled with Tylenol, denies shortness of breath currently. Continues to feel better every day. Remains afebrile. Remains in normal sinus rhythm. Wound VAC placed Friday. IV antibiotics switched to daptomycin and cefepime per infectious disease, reportedly superficial sternal incision positive for staph from culture taken 05/06 at [facility] per Dr. Chris, deep culture wound taken 05/07 negative. Patient has been ambulatory in the hallway without difficulty Objective - Vital Signs Vital signs: Vital Signs Temp 98.3 F 05/09/20 20:00 Pulse 69 05/10/20 04:00 Resp 17 05/10/20 04:00 BP 110/62 05/10/20 04:00 Pulse Ox 93 L 05/10/20 04:00 Intake & Output 05/09/20 05/10/20 05/10/20 18:59 06:59 18:59 Intake Total 450 100 Output Total 1100 1625 Balance -650 -1525 Weight 85 kg Intake: Intake, IV Titration 450 100 Amount Cefepime 2 gm In Sodium 200 100 Chloride 0.9% 100 ml @ 25 mls/hr IVPB Q12HR [facility] Rx #:[id number] Vancomycin 1,500 mg In 250 Sodium Chloride 0.9% 250 ml @ 125 mls/hr IVPB Q16H [facility] Rx#:[id number] Output: Urine 1100 1625 Uretheral (Grimm) 1100 Other: Voiding Method Indwelling Catheter Indwelling Catheter - Constitutional General appearance: Present: cooperative, no acute distress - Respiratory Details: Lungs sounds diminished bilaterally. Respirations even, nonlabored. Currently on room air with oxygen saturation 93%. Able to achieve 7068-4485 mL on his incentive spirometry. Strong cough. - Cardiovascular Details: S1, S2 present. Regular rate and rhythm, sinus rhythm on telemetry. Sternum stable. Palpable peripheral pulses bilaterally. No edema present. Heart hugger in place with patient demonstrating appropriate use. SCDs present. - Gastrointestinal Gastrointestinal Comment(s): Abdomen soft, nontender, nondistended. Active bowel sounds present 4 quadrants. Tolerating diet. - Genitourinary Genitourinary Comment(s): Grimm catheter present draining clear, yellow urine. Output 1625 mL overnight. - Integumentary Integumentary Comment(s): Skin is warm and dry with evidence of good perfusion. Anterior chest incision opened, wound VAC applied Friday, draining pink tinged fluid - Neurologic Neurologic: Present: CNII-XII intact - Musculoskeletal Musculoskeletal: Present: gait normal, strength equal bilaterally - Psychiatric Psychiatric: Present: A&O x's 3, appropriate affect, intact judgment & insight - Allied health notes Allied health notes reviewed: nursing - Labs CBC & Chem 7: 05/10/20 07:16 05/10/20 07:16 Labs: Abnormal Lab Results - Last 24 Hours (Table) 05/10/20 05/10/20 Range/Units 07:16 07:16 WBC 13.5 H (3.8-10.6) k/uL RBC 2.82 L (4.30-5.90) m/uL Hgb 8.7 L (13.0-17.5) gm/dL Hct 29.1 L (39.0-53.0) % MCV 102.9 H (80.0-100.0) fL MCHC 29.8 L (31.0-37.0) g/dL RDW 19.2 H (11.5-15.5) % Plt Count 586 H (150-450) k/uL Sodium 133 L (137-145) mmol/L BUN 28 H (9-20) mg/dL Glucose 105 H (74-99) mg/dL Microbiology - Last 24 Hours (Table) 05/07/20 11:10 Gram Stain - Final Chest Wound Culture - Final Assessment and Plan Assessment: 1. Sternal incision infection, likely superficial, deep culture negative 2. Serratia UTI and bacteremia present at [facility] 3. Left pleural effusion at [facility] with attempted thoracentesis 4. History of coronary artery disease, status post remote inferior wall IN with RCA stent, status post four-vessel CABG 04/15/2020, with postoperative acute blood loss anemia status post transfusion, atrial fibrillation/flutter status post clip ligation of the left atrial appendage and cardioversion, urinary retention with Grimm catheter replacement 5. Mild to moderate left ventricular dysfunction, chronic systolic heart failure, preoperative EF 40-45%, EF 50% on TTE 05/03 6. Mild mitral valve regurgitation 7. Moderately dilated ascending aorta 4.2 cm 8. History of hypertension 9. Hyperlipidemia 10. Previous tobacco dependence 11. Remote history of pneumonia 11. BPH 12. Family history of premature coronary artery disease Plan: 1. Wound VAC placed Friday by wound care center. Wound VAC needs to be changed Friday, Friday, Friday. Friday and Friday can be changed by home care nurse, Friday can be changed in the wound care center 2. Continue antibiotics per Dr. Chris. Son is willing to administer IV antibiotics. Patient to go home on IV daptomycin daily for 28 days, cefepime twice daily [address] Chris 3. Continue full strength aspirin, statin, beta branden therapy 4. Continue amiodarone by mouth for 1 week then discontinue (05/14/20) per taper orders. Eliquis discontinued, patient is not to be discharged home on Eliquis 5. Bronchodilators, inhaled steroids per pulmonology. Encourage incentive spirometry use 6. Increase activity, ambulate as tolerated. PT consulted 7. Daily weights and strict accurate intake and output 8. Continue Lasix, iron/vitamin C, Flomax/Proscar 9. Continue postoperative lifting restrictions 10. GI/DVT prophylaxis 11. Will monitor daily labs and x-rays. No transfusion necessary at this time 12. Patient may be discharged to home with home care from cardiothoracic standpoint when okay with other services. Patient should follow-up with Dr. Olivo in the office in 2 weeks 13. More recommendations to follow Time with Patient: Greater than 30
[2020-05-10] MEDS: metOLazone 5 MG TAB PO SCH (12:34)
--- NOTE | 2020-05-10 12:53 | PN ---
PROGRESS NOTE DATE OF SERVICE: 05/10/2020 REASON FOR FOLLOWUP: 1. Abdominal wound infection. 2. Urinary tract infection with bacteremia. INTERVAL HISTORY: Patient is currently afebrile, has been breathing comfortably. The patient denies having any chest pain, abdominal pressure to the wound VAC site. No abdominal pain. No nausea, no vomiting or diarrhea. PHYSICAL EXAMINATION: Blood pressure is 110/62 with a pulse of 69, temperature 98.3, he is 93% on room air. General description is an elderly male, up in the chair in no distress. RESPIRATORY SYSTEM: Unlabored breathing, decreased breath sounds at bases, no wheeze. HEART: S1, S2. Regular rate and rhythm. ABDOMEN: Soft, no tenderness. LABS: Hemoglobin 8.3, white count of 13.5, creatinine 0.85. Culture has been negative. However, the cultures that were done at [facility] did grow Staphylococcus epidermidis with vancomycin MAYRA of 2. IMPRESSION/PLAN: 1. Patient with wound infection status post debridement, culture with Staphylococcus epidermidis with vancomycin MAYRA of 2. Will switch him over to daptomycin 5 mg daily for about 4 weeks. Local care to continue with wound VAC. 2. Patient with Serratia marcescens bacteremia secondary to source. He will continue with cefepime for another week. Prescription provided to the therapeutic case manager working on discharge. MMODL / IJN: [id number] /
--- NOTE | 2020-05-10 13:03 | P.PN ---
Subjective Progress Note Date: 05/10/20 Principal diagnosis: Sternal wound infection, status post recent 4 vessel bypass grafting, Serratia bacteremia 79-year-old male patient whom I transferred from [facility] to [facility] due to a complication of a surgical abdominal wound infection. The patient was seen on the medical floor and the [facility] and there thoracotomy scar was obviously infected erythematous and red and was draining. I was able to squeeze out some purulent material. Discussed the case with ID and I made to transfer to [facility]. The patient is known to have triple-vessel coronary artery disease post inferior wall MIand RCA stent, status post four-vessel CABG 04/13/2020, mild to moderate left ventricular dysfunction with chronic systolic heart failure and preoperative ejection fraction 40-45%, dilated ascending aorta measuring 4.2 cm, hype rtension, hyperlipidemia, previous tobacco dependence, pneumonia, BPH, and family history of premature coronary artery disease. He had a positive stress test in February and was recommended to undergo heart catheterization which was completed in March. This demonstrated 80% stenosis to the proximal LAD, 70% stenosis to the mid LAD, 90% stenosis to the circumflex coronary artery, and 95% stenosis to the right coronary artery. Subsequently he was recommended to undergo CABG which was completed 04/13/2020. He did experience postoperative atrial fibrillation/atrial flutter and was placed on amiodarone and Eliquis; in addition he underwent synchronized cardioversion with return to normal sinus rhy thm. He also experienced urinary retention requiring replacement of his Grimm catheter, and acute blood loss anemia treated with blood transfusion. Otherwise he had an uneventful hospitalization and was discharged to [facility] inpatient rehab on postoperative day #6 for physical and occupational therapy. He was progressing as expected at [facility] and was expected to be discharged to home with home care this last Friday. Unfortunately Friday night he developed shortness of breath and oxygen desaturation and was felt to be in acute heart failure. He was transferred to the intensive care unit and further investigation showed that the patient had become septic from his sedati on Serratia urine checked infection. He did experience some obstructive uropathy. A Grimm cath was inserted and he was given Flomax and the Grimm catheter still in place. He remains on IV cefepime regarding his sepsis and the patient was also started on vancomycin. Awaiting cardiothoracic surgical evaluation regarding the surgical wound infection. On 05/08/2020 patient seen in follow-up on selective care unit, he sitting up in the recliner, in no acute distress, room air pulse ox is 98%, hemodynamically patient is stable, breathing is comfortable, no worsening dyspnea, no fever or chills since admission, he remains on cefepime and vancomycin. His sternal wound is still draining significantly, requiring frequent dressing changes, the output is serous in nature, cardiothoracic surgery is following, ID service is following. Lung sounds are clear. Today's labs have been reviewed, showing with blood cell count 9.3, hemoglobin of 8.2, sodium is 134, potassium is 4.0, chloride is 97, CO2 32, B1 is 26, creatinine 0.93. Patient had anterior chest incision opened at the bedside, and deep cultures were taken and the wound was cleaned and packed. No altered mentation, vital signs are stable, working on incentive spirometer, achieving 1250 on the today. On 05/09/2020 patient seen in follow-up on selective care unit, sitting up in a recliner, in no acute distress, room air pulse ox is 96%, no complaints of respiratory distress, afebrile, hemodynamically stable, he had a wound VAC applied to his sternal wound, and a suction catheter is one third fall with pink purulent drainage. Remains on antibiotics including vancomycin and cefepime, ID service is following. Lung sounds are clear, diminished at the bases, patient is working on the incentive spirometer, today's labs have been noted, with blood cell count is 12.5, hemoglobin is 8.2, sodium is 136, potassium is 4.3, chloride is 99, CO2 33, B1 is 29 creatinine 0.9. Today's chest x-ray shows some cardiomegaly with small left greater than right pleural effusions, and increasing central vascular congestion with consideration for fluid overload and/or CHF exacerbation. Patient remains on IV Lasix at 40 mg every 12 hours and is in the 1.8 L negative fluid balance over the last 24 hours. No worsening dyspnea, no worsening oxygenation. On 05/10/2020 patient seen in follow-up on selective care unit. He is calm and comfortable, sitting up in the recliner, in no acute distress, on room air with pulse ox of 93-94%, afebrile, hemodynamically patient is stable, lung sounds are clear to auscultation, sternal wound has a wound VAC in place, to continue suction, and the canister is about half full with pink tinged purulent drainage, patient is on IV antibiotics, PICC line was inserted, ID service is following, sternal wound wound culture has shown no growth so far. Today's labs have been noted, no new labs today. No pulmonary complaints. Current antibiotic coverage includes cefepime and daptomycin, vancomycin has been discontinued, patient is on Zaroxolyn for diuretic therapy, he is in -2.1 L fluid balance over the last 24 hours. Objective - Vital Signs Vital signs: Vital Signs Temp 98.3 F 05/09/20 20:00 Pulse 69 05/10/20 04:00 Resp 17 05/10/20 04:00 BP 110/62 05/10/20 04:00 Pulse Ox 93 L 05/10/20 04:00 Intake & Output 05/09/20 05/10/20 05/10/20 18:59 06:59 18:59 Intake Total 450 100 Output Total 1100 1625 Balance -650 -1525 Weight 85 kg Intake: Intake, IV Titration 450 100 Amount Cefepime 2 gm In Sodium 200 100 Chloride 0.9% 100 ml @ 25 mls/hr IVPB Q12HR [facility] Rx #:[id number] Vancomycin 1,500 mg In 250 Sodium Chloride 0.9% 250 ml @ 125 mls/hr IVPB Q16H [facility] Rx#:[id number] Output: Urine 1100 1625 Uretheral (Grimm) 1100 Other: Voiding Method Indwelling Catheter Indwelling Catheter - Exam GENERAL EXAM: Alert, very pleasant, 79-year-old white male, on room air comfortable in no apparent distress. Room air pulse ox is 93% HEAD: Normocephalic/atraumatic. EYES: Normal reaction of pupils, equal size. Conjunctiva pink, sclera white. NOSE: Clear with pink turbinates. THROAT: No erythema or exudates. NECK: No masses, no JVD, no thyroid enlargement, no adenopathy. CHEST: No chest wall deformity. Symmetrical expansion. Sternal incision cover ed with the wound VAC, and the canister is up one third fall with pink tinged purulent drainage LUNGS: Equal air entry with no crackles, wheeze, rhonchi or dullness. CVS: Regular rate and rhythm, normal S1 and S2, no gallops, no murmurs, no rubs ABDOMEN: Soft, nontender. No hepatosplenomegaly, normal bowel sounds, no guarding or rigidity. EXTREMITIES: No clubbing, no edema, no cyanosis, 2+ pulses and upper and lower extremities. MUSCULOSKELETAL: Muscle strength and tone normal. SPINE: No scoliosis or deformity SKIN: No rashes CENTRAL NERVOUS SYSTEM: Alert and oriented -3. No focal deficits, tone is normal in all 4 extremities. PSYCHIATRIC: Alert and oriented -3. Appropriate affect. Intact judgment and insight. - Labs CBC & Chem 7: 05/10/20 07:16 05/10/20 07:16 Labs: Abnormal Lab Results - Last 24 Hours (Table) 05/10/20 05/10/20 Range/Units 07:16 07:16 WBC 13.5 H (3.8-10.6) k/uL RBC 2.82 L (4.30-5.90) m/uL Hgb 8.7 L (13.0-17.5) gm/dL Hct 29.1 L (39.0-53.0) % MCV 102.9 H (80.0-100.0) fL MCHC 29.8 L (31.0-37.0) g/dL RDW 19.2 H (11.5-15.5) % Plt Count 586 H (150-450) k/uL Sodium 133 L (137-145) mmol/L BUN 28 H (9-20) mg/dL Glucose 105 H (74-99) mg/dL Microbiology - Last 24 Hours (Table) 05/07/20 11:10 Gram Stain - Final Chest Wound Culture - Final Assessment and Plan Plan: Assessment: 1 infection of the sternal wound, evaluated by cardiothoracic surgery, the sternal wound incision was incised and drained at the bedside, deep cultures were taken, and the wound is currently packed. The patient is currently on accommodation cefepime and vancomycin. Cultures were obtained and Gram stain showed no organisms. Wound VAC has been applied to continuous suction 2 recent septic shock secondary to Serratia UTI. The patient was bacteremic and the patient could have also seeded his sternal wound. 3 coronary artery disease with previous inferior wall PA and previous stenting of RCA with subsequent four-vessel bypass surgery on 04/15/2020 4 proximal atrial fibrillation/flutter postop, current rhythm is sinus 5 obstructive uropathy and urinary retention and patient has a Grimm catheter in place currently on Flomax 6 CHF with an ejection fraction 40-45% 7 mildly dilated ascending aorta measuring 4.2 cm 8 hypertension 9 hyperlipidemia 10 bilateral pleural effusions post bypass surgery and the patient got diuresed adequately with IV Lasix with an attempted thoracentesis of the drained minimal amount of fluid from the left lung. 11 BPH Plan: Patient is stable from pulmonary perspective, continues to diurese, he is maintaining negative fluid balance, he is on room, with stable oxygenation, no cough or congestion, lung sounds are clear, no fever or chills, any Maggie per ID service recommendations, wound VAC is in place on sternal incision. Encourage deep breathing and coughing, incentive spirometry use. Patient has been cleared for discharge home and outpatient follow-up will be needed in the office in 7-10 days I performed a history & physical examination of the patient and discussed their management with my nurse practitioner, Amanda Hercules. I reviewed the nurse practitioner's note and agree with the documented findings and plan of care. Lung sounds are positive for clear breath sounds. The findings and the impression was discussed with the patient. I attest to the documentation by the nurse practitioner. Time with Patient: Less than 30
--- NOTE | 2020-05-10 13:29 | P.PN ---
Subjective Progress Note Date: 05/10/20 79-year-old male patient of Dr. guallpa with long-standing history of CAD post VT with history of PCI and stent placement of the right coronary artery disease over 10 years ago who is known to have history of hypertension hyperlipidemia and previous history of tobacco dependency patient has been doing natural management for many years started noticing significant shortness of breath and decrease endurance when attempted to walk and ambulate was seen Dr. FRANK patel and end up going for stress test showed moderate area of infarct ischemic change patient ended up going for heart cath on 03/09/2020 finding was consistent with 80 percentile blockage of the LAD, 70% blockage in the mid LAD, 90% blockage of the circumflex and 95% blockage of the RCA, underwent 4 vessel bypass surgery on 2019 and was sent to the ICU on mechanical ventilation. Postoperatively patient did experience atrial fibrillation/atrial flutter and was placed on a meter on an ad guzman. (. He also underwent synchronized cardioversion with return to normal sinus rhythm. Patient also received 1 unit of packed RBC while at [facility] for acute blood loss anemia. He was also found to have urinary retention for which he was placed on Grimm catheter and was sent to inpatient rehab at [facility]. Patient was given iron infusion at [facility] and 2 attempts were made to remove Grimm catheter without any success. Patient is started on Flomax to help with urine retention. Patient was noted to be short of breath on discharge to inpatient rehab on 04/25 and found to have left pleural effusion. Patient was diuresed with IV Lasix. Patient was doing well and was planned to be discharged on 05/04 but on 05/03 , he developed she worsening shortness of breath with drop in oxygen saturation to 74% on nonrebreather, lisa ent was placed in on BiPAP and was transferred to the ICU. Chest CT was obtained that showed an congestive heart failure with mild infiltrate. Pulmonary attempted thoracentesis with minimal output. The echo suggested an EF of 50% hemoglobin of 6.9 requiring transfusion. Urine and blood culture was was positive for Serratia and patient was placed on cefepime by Dr. Chris On 05/06 she was noted to have increased redness and drainage around the incision site from coronary artery bypass graft. Infectious disease recommended transcend back to [facility] for reevaluation by cardiothoracic surgery. Patient was also initiated on Proscar to help with urine retention. Since the Grimm catheter was leaking, the nurse removed the Grimm catheter for an attempt of Grimm catheter. Nurse was instructed to obtain bladder scan every 6 hour. Patient was found to have urinary retention greater than 600 mL with multiple attempts by the patient to urinate without any success. Grimm catheter was placed back in. On reevaluation today, patient denies any shortness of breath. He did have incision and drainage and packing of the wound done at bedside by Dr. Olivo on . Patient denies any episode of fever overnight he denies any shortness of breath. Vitals are stable temperature 97.7 pulse 73 respiratory rate 19 and blood pressure 106/58. Labs are suggestive hemoglobin 7.9 and MCV 100.9 liz telet count 541 Eucerin CRP are elevated creatinine 0.89 sodium 135 BUN 24 Swelling in the lower extremity has improved continue IV Lasix. Continue cefepime and vancomycin per ID recommendation. 05/08:patient states he did not sleep well last night. He states he was woken many times during the night. Wound has been packed this morning. He denies having any fever or chills. No diarrhea. No cough and no constipation. He is reaching 1000 on incentive spirometry. Patient has been afebrile, heart rate 63, blood pressure 96/61, pulse ox 90% on room air. WBC 9.3, hemoglobin 8.2, platelet count 539. Sodium 134. Potassium 4, chloride 96, CO2 32, BUN 26 and creatinine 0.93. Blood sugar 133. Patient has been seen by the wound care team with recommendations to apply Adaptic overexpose hardwire, negative pressure wound therapy to be changed on Fridays and patient will follow- up in the wound care center next week. Discharge plan most likely be home with home care and IV antibiotics. 05/09: Repeat chest x-ray reveals cardiomegaly with small left greater than right pleural effusions redemonstrated. Increasing central vascular congestion noted. Correlate for fluid overload state and/or heart failure exacerbation. Repeat blood work reveals W BC 12.5, hemoglobin 8.2, platelet count 554. Sodium 136, potassium 4.3, chloride 99, CO2 33, BUN 29 and creatinine 0.99. Wound VAC ordered for home. Discussed case with Dr. Ordonez in and PICC line will be ordered. Patient states that his breathing is fair. He is concerned that he is on somewhat IV medication before going home. He is using incentive spirometry. Anticipate discharge on Friday or . Patient has been cleared for discharge by cardiothoracic surgery. 05/10: PICC line was placed yesterday. He continues on cefepime and vancomycin per Dr. Chris's recommendations. Dr. Chris has provided prescriptions for daptomycin and cefepime for home. Wound culture at our facility has been finalized with normal skin sharad. He has been afebrile, heart rate 69, blood pressure 110/62, pulse ox 93% on room air. Blood work this morning reveals WBC 13.5, hemoglobin 8.7, platelet count 586. Sodium 133, potassium 4.7, chloride 99, CO2 30, BUN 28 and creatinine 0.85. Blood sugar 105. Patient states that he is doing a little bit better today. He states he walked in the reyna and was less short of breath. Dr. Cottrell plans to see the patient before he goes home. Patient is adamant that he is staying until Friday. Wound VAC, home care and IV antibiotics have all been arranged by casework supervisor. We will plan to discontinue Grimm catheter today and monitor closely for urinary retention. Review of Systems Constitutional: Denies chills, Denies fever, Denies lethargy, Denies malaise, Denies poor appetite, Denies weakness, Denies weight loss Eyes: denies decreased vision, denies diplopia, denies discharge, denies pain Ears, nose, mouth and throat: Denies dental pain, Denies headache, Denies nasal discharge, Denies nose pain Cardiovascular: Denies chest pain, reports decreased exercise tolerance, Denies edema, Denies high blood pressure, Denies irregular heart beat, Denies palpitations, Denies paroxysmal nocturnal dyspnea, Denies rapid heart beat, Den ies shortness of breath Respiratory: Denies congestion, Denies cough, Denies cough with sputum, reports dyspneaimproving, Denies home oxygen, Denies wheezing Gastrointestinal: Denies abdominal pain, Denies change in bowel habits, Denies coffee ground emesis, Denies early satiety, Denies excessive gas, Denies heartburn, Denies hematemesis, Denies hematochezia, Denies loss of appetite, Denies nausea, Denies vomiting Genitourinary: Denies dysuria, Denies flank pain, Denies kidney stones, Denies menorrhagia, endorses urinary retention Musculoskeletal: Denies gait dysfunction, Denies limitation of motion, Denies morning stiffness, Denies muscle cramps Integumentary: Sternal wound infected, Denies brittle nails, Denies change in hair/nails, Denies darkening of skin Neurological: Denies balance difficulties, Denies change in speech, Denies double vision, Denies gait dysfunction, Denies loss of vision, Denies motor disturbance, Denies numbness, Denies paralysis, Denies paresthesias, Denies se izures Psychiatric: Denies anxiety, Denies depression Endocrine: Denies excessive sweating, Denies excessive thirst, Denies high blood sugars, Denies palpitations Hematologic/Lymphatic: Denies easy bruising, Denies lymphadenopathy Physical Examination - Constitutional General appearance: cooperative, no acute distress, resting in recliner with legs elevated. - EENT Eyes: anicteric sclerae, PERRLA, normal appearance ENT: hearing grossly normal - Neck Neck: no lymphadenopathy, normal ROM, no other, no rigidity, no stridor, no thyromegaly - Respiratory Respiratory: bilateral decreased air entry chest wall expansion decreased. Heart Hugger in place - Cardiovascular Rhythm: regular Heart sounds: normal: S1, S2 Abnormal Heart Sounds: no systolic murmur, no diastolic murmur, no rub, no S3 Gallop, no S4 Gallop, no click - Gastrointestinal General gastrointestinal: normal bowel sounds, soft nontender nondistended - Integumentary Integumentary: chest incision with wound VAC in place - Neurologic Neurologic: Normal coordination normal sensation - Musculoskeletal Musculoskeletal: gait normal, strength equal bilaterally no lower extremity edema - Psychiatric Psychiatric: A&O x's 3, appropriate affect Assessment and Plan 1. Post surgical infection of the sternal wound status post opening up of incision bedside and cleaning and packing the area. Wound culture has been sent at [facility]. Continue on vancomycin and cefepime per Dr. Chris. PICC line ordered. 2. CAUTI bacteremia secondary to Serratia. Septic shock resolved. Currently on vancomycin and cefepime. 3. H/o triple vessel coronary disease s/p remote inferior wall VT with RCA stent, post 4 vessel coronary artery bypass grafting with KEANE to the LAD, left radial arterial graft to the OM, SVG to the PDA, SVG to the diagonal with left radial artery harvest along with left lower extremity endoscopy Vein harvest on 04/13. On aspirin 325 mg Plavix Lipitor 4. Acute hypoxic respiratory failure with left pleural effusion, attempted thoracentesis on with minimal output continue Lasix IV 40 mg twice daily. Pulmonary consulted and repeat echo with ejection fraction 50% on 05/03. 5. Postop atrial flutter/ atrial fibrillation status post clip ligation of the left atrial appendage and cardioversion. Oral amiodarone, Lopressor and eliquis. 6. BPH with urinary retention requiring Grimm catheter placement. Last placed on 05/06 on Flomax twice daily on urology recommendation. Finasteride added at 5 mg by mouth daily 7. Acute blood loss anemia with bone marrow suppression status post 2 units of PRBC and iron infusion at [facility]. Continue daily CBC. Transfuse if hemoglobin less than 7. Continue iron supplementation daily 8. Systolic congestive heart failure with ejection fraction 50% with [id number] left ventricular dysfunction. Last echo obtained on 05/03 9. Hypertension. Continue amiodarone, Lopressor. 10. Hyperlipidemia: atorvastatin 40 mg daily resume medication. 11. History of osteoarthritis post right total knee arthroplasty. 12. Hyperglycemia. NovoLog scale. 13. DVT prophylaxis: Eliquis. 14. GI prophylaxis: Pantoprazole 40 by mouth with breakfast CODE STATUS: Full code. Discharge plan: home with [facility] care, IV antibiotics, wound VAC Impression and plan of care have been directed as dictated by the signing physician. Alisson Penny nurse practitioner acting as scribe for signing physician. Objective - Vital Signs Vital signs: Vital Signs Temp 98.3 F 05/09/20 20:00 Pulse 69 05/10/20 04:00 Resp 17 05/10/20 04:00 BP 110/62 05/10/20 04:00 Pulse Ox 93 L 05/10/20 04:00 Intake & Output 05/09/20 05/10/20 05/10/20 18:59 06:59 18:59 Intake Total 450 100 Output Total 1100 1625 Balance -650 -1525 Weight 85 kg Intake: Intake, IV Titration 450 100 Amount Cefepime 2 gm In Sodium 200 100 Chloride 0.9% 100 ml @ 25 mls/hr IVPB Q12HR [facility] Rx #:[id number] Vancomycin 1,500 mg In 250 Sodium Chloride 0.9% 250 ml @ 125 mls/hr IVPB Q16H [facility] Rx#:[id number] Output: Urine 1100 1625 Uretheral (Grimm) 1100 Other: Voiding Method Indwelling Catheter Indwelling Catheter - Labs CBC & Chem 7: 05/10/20 07:16 05/10/20 07:16 Labs: Abnormal Lab Results - Last 24 Hours (Table) 05/10/20 05/10/20 Range/Units 07:16 07:16 WBC 13.5 H (3.8-10.6) k/uL RBC 2.82 L (4.30-5.90) m/uL Hgb 8.7 L (13.0-17.5) gm/dL Hct 29.1 L (39.0-53.0) % MCV 102.9 H (80.0-100.0) fL MCHC 29.8 L (31.0-37.0) g/dL RDW 19.2 H (11.5-15.5) % Plt Count 586 H (150-450) k/uL Sodium 133 L (137-145) mmol/L BUN 28 H (9-20) mg/dL Glucose 105 H (74-99) mg/dL Microbiology - Last 24 Hours (Table) 05/07/20 11:10 Gram Stain - Final Chest Wound Culture - Final
[2020-05-10] MEDS: DAPTOmycin 500 MG in SODIUM CHLORIDE 0.9% 50 ML IVPB SCH (15:38)
[2020-05-10] MEDS: ACETAMINOPHEN TAB 500 MG TAB PO PRN ×2 (15:39→20:58)
--- NOTE | 2020-05-10 20:38 | P.GSCN ---
History of Present Illness Consult date: 05/10/20 Reason for Consult: Urinary retention History of present illness: Mr Pereyra is 79 yo male with hx of CAD he is S/P CABG on 2019, post ope rative course complicated by wound infection requring wound VAC. Urology is counsulted for urinary retention. He has had multiple failed TOV, and he has been catheter dependent for 4 weeks. He is currently on maximal medical therapy. He Denies any hx of urinary retention, Gross hematuria, recurrent UTI. He indicates at baseline he has frequency/ nocturia and fair stream. Denies any straining with urination. Review of Systems - Constitutional Denies fever, Denies weight loss - Cardiovascular Denies chest pain, Denies shortness of breath - Respiratory Denies cough, Denies 7 - Gastrointestinal Reports as per HPI - Genitourinary Reports urinary frequency, Reports urinary retention, Denies dysuria, Denies flank pain, Denies hematuria, Denies kidney stones - Neurological Denies headaches, Denies syncope Past Medical History Past Medical History: Coronary Artery Disease (CAD), Hyperlipidemia, Hypertension, Myocardial Infarction ([place]), Osteoarthritis (OA) Additional Past Medical History / Comment(s): Sepsis secondary to Serratia UTI and the patient was bacteremic Last Myocardial Infarction Date:: 2001 History of Any Multi-Drug Resistant Organisms: None Reported Past Surgical History: Coronary Bypass/CABG, Heart Catheterization With Stent, Hernia Repair, Joint Replacement, Tonsillectomy Additional Past Surgical History / Comment(s): Precancerous skin lesion removed, right knee replacement, cyst removed, bilateral cataracts removed. Bare-metal stent placed to the RCA in February 2002; 4 vessel CABG 04/13/2020 Past Anesthesia/Blood Transfusion Reactions: No Reported Reaction Date of Last Stent Placement:: 2001 Past Psychological History: No Psychological Hx Reported Smoking Status: Former smoker Past Alcohol Use History: Rare Additional Past Alcohol Use History / Comment(s): quit smoking 30-35 yrs. ago, started @age 13, up to 3ppd, quit in late 70's Past Drug Use History: None Reported - Past Family History Father Family Medical History: Cancer Mother Family Medical History: Cancer Medications and Allergies Home Medications Medication Instructions Recorded Confirmed Type Acetaminophen Tab [Tylenol] 1,000 mg PO Q6HR PRN tab 04/19/20 05/06/20 Rx Ascorbic Acid [Vitamin C] 500 mg PO BID-W/MEALS tab 04/19/20 05/06/20 Rx Ferrous Sulfate [Iron (65 MG 325 mg PO BID-W/MEALS tab 04/19/20 05/06/20 Rx Elemental)] Multivitamins, Thera [Multivitamin 1 each PO DAILY tab 04/19/20 05/06/20 Rx (formulary)] Pantoprazole [Protonix] 40 mg PO AC-[id number] tablet. 04/19/20 05/06/20 Rx Sennosides-Docusate Sodium 2 each PO HS tab 04/19/20 05/06/20 Rx [Senokot-S] Tamsulosin [Flomax] 0.4 mg PO BID cap.er.24h 04/19/20 05/06/20 Rx amLODIPine [Norvasc] 2.5 mg PO DAILY@1200 tab 04/19/20 05/06/20 Rx Amiodarone [Cordarone] See Taper PO DIRECTED 05/06/20 05/06/20 History Metoprolol Tartrate [Lopressor] 12.5 mg PO BID 05/06/20 05/06/20 History Cefepime [Maxipime] 2 gm IVPB Q12H #14 bag 05/10/20 Rx DAPTOmycin [Cubicin] 500 mg IV DAILY #28 bag 05/10/20 Rx Allergies Allergy/AdvReac Type Severity Reaction Status Date / Time codeine Allergy Headache/brain Verified 05/06/20 19:54 swelling Surgical - Exam Vital Signs Temp Pulse Resp BP Pulse Ox 98.6 F 68 16 113/68 98 05/06/20 17:08 05/06/20 17:08 05/06/20 17:08 05/06/20 17:08 05/06/20 17:08 - General well developed, well nourished, no distress, no pain - Eyes PERRL, normal ocular movement, no pale - ENT normal mucosa, no hearing loss - Respiratory normal expansion, normal respiratory effort - Abdomen Abdomen: soft, non tender - Psychiatric oriented to time, oriented to person, oriented to place Results - Labs 05/10/20 07:16 05/10/20 07:16 Abnormal Lab Results - Last 24 Hours (Table) 05/10/20 05/10/20 Range/Units 07:16 07:16 WBC 13.5 H (3.8-10.6) k/uL RBC 2.82 L (4.30-5.90) m/uL Hgb 8.7 L (13.0-17.5) gm/dL Hct 29.1 L (39.0-53.0) % MCV 102.9 H (80.0-100.0) fL MCHC 29.8 L (31.0-37.0) g/dL RDW 19.2 H (11.5-15.5) % Plt Count 586 H (150-450) k/uL Sodium 133 L (137-145) mmol/L BUN 28 H (9-20) mg/dL Glucose 105 H (74-99) mg/dL Diabetes panel 05/10/20 Range/Units 07:16 Sodium 133 L (137-145) mmol/L Potassium 4.7 (3.5-5.1) mmol/L Chloride 99 (98-107) mmol/L Carbon Dioxide 30 (22-30) mmol/L BUN 28 H (9-20) mg/dL Creatinine 0.85 (0.66-1.25) mg/dL Glucose 105 H (74-99) mg/dL Calcium 8.5 (8.4-10.2) mg/dL Calcium panel 05/10/20 Range/Units 07:16 Calcium 8.5 (8.4-10.2) mg/dL Pituitary panel 05/10/20 Range/Units 07:16 Sodium 133 L (137-145) mmol/L Potassium 4.7 (3.5-5.1) mmol/L Chloride 99 (98-107) mmol/L Carbon Dioxide 30 (22-30) mmol/L BUN 28 H (9-20) mg/dL Creatinine 0.85 (0.66-1.25) mg/dL Glucose 105 H (74-99) mg/dL Calcium 8.5 (8.4-10.2) mg/dL Adrenal panel 05/10/20 Range/Units 07:16 Sodium 133 L (137-145) mmol/L Potassium 4.7 (3.5-5.1) mmol/L Chloride 99 (98-107) mmol/L Carbon Dioxide 30 (22-30) mmol/L BUN 28 H (9-20) mg/dL Creatinine 0.85 (0.66-1.25) mg/dL Glucose 105 H (74-99) mg/dL Calcium 8.5 (8.4-10.2) mg/dL Assessment and Plan Assessment: Mr Pereyra is 79 yo male with hx of CAD S/P CABG. Urology is counsulted for urinary retention. He has failed multiple TOV, and has been catheter dependent for the past 4 weeks. Has LUTS and hx of enlarged prostate at baseline -At this time soria can stay in place given his multiple failed TOV. He will need Cystoscopy/Urodynamics as an outpatient to evaluate if he will benefit from surgical intervention for his urinary retention. At this time he can be discharged with the soria. He can f/u as an outpatient in urology clinic
[2020-05-10] MEDS: SENNOSIDES-DOCUSATE SODIUM 1 EACH TAB PO SCH (22:55)
[2020-05-11 06:37] LABS: Anisocytosis Slight; HCT 25.3 % (39.0-53.0); HGB 7.8 gm/dL (13.0-17.5); Hypochromasia Marked; MCH 31.3 pg (25.0-35.0); MCHC 30.7 g/dL (31.0-37.0); MCV 101.8 fL (80.0-100.0); Macrocytosis Moderate; Mean Platelet Volume 8.1; Platelet Count 484 k/uL (150-450); Poikilocytosis Slight; RBC 2.49 m/uL (4.30-5.90); RDW 19.4 % (11.5-15.5); WBC 11.9 k/uL (3.8-10.6)
[2020-05-11] MEDS: PANTOPRAZOLE 40 MG TABLET PO SCH (06:47)
[2020-05-11] MEDS: FERROUS SULFATE 325 MG TAB PO SCH ×2 (06:47→17:58)
[2020-05-11] MEDS: MIDODRINE 5 MG TAB PO SCH ×2 (06:47→17:58)
[2020-05-11 07:26] LABS: African American GFR (CKD) 88 (>60 ml/min/1.73 sqM); Anion Gap 3 mmol/L; Blood Urea Nitrogen 30 mg/dL (9-20); Calcium 8.4 mg/dL (8.4-10.2); Carbon Dioxide 33 mmol/L (22-30); Chloride 98 mmol/L (98-107); Creatine Kinase <20 U/L (55-170); Glucose 92 mg/dL (74-99); Non-African American GFR(CKD) 76 (>60 ml/min/1.73 sqM); Potassium 4.3 mmol/L (3.5-5.1); Sodium 134 mmol/L (137-145)
[2020-05-11 07:45] LABS: C Reactive Protein 25.4 mg/L (<10.0)
[2020-05-11 08:08] LABS: Erythrocyte Sedimentation Rate 52 mm/hr (0-15)
[2020-05-11] MEDS: BUDESONIDE 0.5 MG/2 ML NEBU INHALATION SCH ×2 (08:56→20:43)
[2020-05-11] MEDS: HEPARIN SODIUM,PORCINE 5,000 UNIT/ML 1 ML VIAL SQ SCH ×3 (09:31→23:33)
[2020-05-11] MEDS: ASCORBIC ACID 500 MG TAB PO SCH ×2 (09:32→22:09)
[2020-05-11] MEDS: ASPIRIN 325 MG TAB PO SCH (09:32)
[2020-05-11] MEDS: FINASTERIDE 5 MG TAB PO SCH (09:32)
[2020-05-11] MEDS: AMIODARONE 200 MG TAB PO SCH (09:32)
[2020-05-11] MEDS: TAMSULOSIN 0.4 MG CAP.ER.24H PO SCH ×2 (09:32→22:11)
[2020-05-11] MEDS: metOLazone 5 MG TAB PO SCH (09:32)
[2020-05-11] MEDS: FUROSEMIDE 10 MG/ML 4 ML VIAL IV SCH ×2 (09:32→22:11)
[2020-05-11] MEDS: MULTIVITAMINS, THERA 1 EACH TAB PO SCH (09:32)
[2020-05-11] MEDS: METOPROLOL TARTRATE 12.5 MG TAB PO SCH ×2 (09:32→22:10)
[2020-05-11] MEDS: CEFEPIME 2 GM in SODIUM CHLORIDE 0.9% 100 ML IVPB SCH ×2 (09:33→22:11)
[2020-05-11] MEDS: ACETAMINOPHEN TAB 500 MG TAB PO PRN ×2 (09:40→22:10)
[2020-05-11 10:47] VITALS: BMI 29.1
--- NOTE | 2020-05-11 10:52 | P.PN ---
Subjective Progress Note Date: 05/11/20 Principal diagnosis: Sternal incision infection, likely superficial, Serratia UTI and bacteremia present at [facility], left pleural effusion at [facility] with attempted thoracentesis. 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 States chest discomfort is controlled with Tylenol, denies shortness of breath currently. Continues to feel better every day. Remains afebrile. Remains in normal sinus rhythm. Wound VAC changed yesterday with Dr. Olivo. IV antibiotics switched to daptomycin and cefepime per infectious disease, reportedly superficial sternal incision positive for staph from culture taken 05/06 at [facility] per Dr. Chris, deep culture wound taken 05/07 negative. Patient has been ambulatory in the hallway without difficulty. Patient seen yesterday by urology, recommendations were to continue Grimm catheter upon discharge and patient is to follow up outpatient for cystoscopy. Objective - Vital Signs Vital signs: Vital Signs Temp 97.8 F 05/10/20 20:00 Pulse 71 05/11/20 04:00 Resp 19 05/11/20 04:00 BP 106/54 05/11/20 04:00 Pulse Ox 95 05/11/20 04:00 Intake & Output 05/10/20 05/11/20 05/11/20 18:59 06:59 18:59 Intake Total 600 200 Output Total 2150 2350 Balance -2150 -1750 200 Weight 84.5 kg Intake: Oral 600 200 Output: Urine 2150 2350 Other: Voiding Method Indwelling Catheter Indwelling Catheter # Voids 1 - Constitutional General appearance: Present: cooperative, no acute distress - Respiratory Details: Lungs sounds diminished bilaterally. Respirations even, nonlabored. Currently on room air with oxygen saturation 95%. Able to achieve 1250 mL on his incentive spirometry. Strong cough - Cardiovascular Details: S1, S2 present. Regular rate and rhythm, sinus rhythm on telemetry. Sternum stable. Palpable peripheral pulses bilaterally. No edema present. Heart hugger in place with patient demonstrating appropriate use. SCDs present. - Gastrointestinal Gastrointestinal Comment(s): Abdomen soft, nontender, nondistended. Active bowel sounds present 4 quadrants . Tolerating diet. - Genitourinary Genitourinary Comment(s): Grimm catheter present draining clear, yellow urine. - Integumentary Integumentary Comment(s): Skin is warm and dry with evidence of good perfusion. Anterior chest incision opened, wound VAC changed yesterday, draining pink tinged fluid - Neurologic Neurologic: Present: CNII-XII intact - Musculoskeletal Musculoskeletal: Present: gait normal, strength equal bilaterally - Psychiatric Psychiatric: Present: A&O x's 3, appropriate affect, intact judgment & insight - Allied health notes Allied health notes reviewed: nursing - Labs CBC & Chem 7: 05/11/20 06:13 05/11/20 06:13 Labs: Abnormal Lab Results - Last 24 Hours (Table) 05/11/20 05/11/20 Range/Units 06:13 06:13 WBC 11.9 H (3.8-10.6) k/uL RBC 2.49 L (4.30-5.90) m/uL Hgb 7.8 L (13.0-17.5) gm/dL Hct 25.3 L (39.0-53.0) % MCV 101.8 H (80.0-100.0) fL MCHC 30.7 L (31.0-37.0) g/dL RDW 19.4 H (11.5-15.5) % Plt Count 484 H (150-450) k/uL ESR 52 H (0-15) mm/hr Sodium 134 L (137-145) mmol/L Carbon Dioxide 33 H (22-30) mmol/L BUN 30 H (9-20) mg/dL Creatine Kinase <20 L (55-170) U/L C-Reactive Protein 25.4 H (<10.0) mg/L Assessment and Plan Assessment: 1. Sternal incision infection, likely superficial, deep culture negative 2. Serratia UTI and bacteremia present at [facility] 3. Left pleural effusion at [facility] with attempted thoracentesis 4. History of coronary artery disease, status post remote inferior wall IL with RCA stent, status post four-vessel CABG 04/15/2020, with postoperative acute blood loss anemia status post transfusion, atrial fibrillation/flutter status post clip ligation of the left atrial appendage and cardioversion, urinary retention with Grimm catheter replacement 5. Mild to moderate left ventricular dysfunction, chronic systolic heart failure, preoperative EF 40-45%, EF 50% on TTE 05/03 6. Mild mitral valve regurgitation 7. Moderately dilated ascending aorta 4.2 cm 8. History of hypertension 9. Hyperlipidemia 10. Previous tobacco dependence 11. Remote history of pneumonia 11. BPH with continued urinary retention 12. Family history of premature coronary artery disease Plan: 1. Wound VAC change yesterday with Dr. Olivo. Wound VAC needs to be changed Friday, Friday, Friday. Friday and Friday can be changed by home care nurse, Friday can be changed in the wound care center 2. Continue antibiotics per Dr. Chris. Son is willing to administer IV antibiotics. Patient to go home on IV daptomycin daily for 28 days, cefepime twice daily [address] Chris 3. Continue full strength aspirin, statin, beta branden therapy 4. Continue amiodarone by mouth for 1 week then discontinue (05/14/20) per taper orders. Eliquis discontinued, patient is not to be discharged home on Eliquis 5. Bronchodilators, inhaled steroids per pulmonology. Encourage incentive spirometry use 6. Increase activity, ambulate as tolerated. PT/OT following 7. Daily weights and strict accurate intake and output 8. Continue Lasix, iron/vitamin C, Flomax/Proscar. Per urology patient should be discharged to home with Grimm catheter to follow-up as an outpatient for cystoscopy. RN to do teaching regarding catheter drainage 9. Continue postoperative lifting restrictions 10. GI/DVT prophylaxis 11. Will monitor daily labs and x-rays. No transfusion necessary at this time 12. Patient may be discharged to home with home care from cardiothoracic standpoint when okay with other services. Patient should follow-up with Dr. Olivo in the office May 26 at 10 AM 13. More recommendations to follow Time with Patient: Greater than 30
[2020-05-11] MEDS ORDERED: traMADol 50 MG TAB PO PRN (11:20)
--- NOTE | 2020-05-11 11:20 | P.PN ---
Subjective Progress Note Date: 05/11/20 79-year-old male patient of Dr. guallpa with long-standing history of CAD post VA with history of PCI and stent placement of the right coronary artery disease over 10 years ago who is known to have history of hypertension hyperlipidemia and previous history of tobacco dependency patient has been doing natural management for many years started noticing significant shortness of breath and decrease endurance when attempted to walk and ambulate was seen Dr. FRANK patel and end up going for stress test showed moderate area of infarct ischemic change patient ended up going for heart cath on 03/09/2020 finding was consistent with 80 percentile blockage of the LAD, 70% blockage in the mid LAD, 90% blockage of the circumflex and 95% blockage of the RCA, underwent 4 vessel bypass surgery on 2019 and was sent to the ICU on mechanical ventilation. Postoperatively patient did experience atrial fibrillation/atrial flutter and was placed on a meter on an ad guzman. (. He also underwent synchronized cardioversion with return to normal sinus rhythm. Patient also received 1 unit of packed RBC while at [facility] for acute blood loss anemia. He was also found to have urinary retention for which he was placed on Grimm catheter and was sent to inpatient rehab at [facility]. Patient was given iron infusion at [facility] and 2 attempts were made to remove Grimm catheter without any success. Patient is started on Flomax to help with urine retention. Patient was noted to be short of breath on discharge to inpatient rehab on 04/25 and found to have left pleural effusion. Patient was diuresed with IV Lasix. Patient was doing well and was planned to be discharged on 05/04 but on 05/03 , he developed she worsening shortness of breath with drop in oxygen saturation to 74% on nonrebreather, lisa ent was placed in on BiPAP and was transferred to the ICU. Chest CT was obtained that showed an congestive heart failure with mild infiltrate. Pulmonary attempted thoracentesis with minimal output. The echo suggested an EF of 50% hemoglobin of 6.9 requiring transfusion. Urine and blood culture was was positive for Serratia and patient was placed on cefepime by Dr. Chris On 05/06 she was noted to have increased redness and drainage around the incision site from coronary artery bypass graft. Infectious disease recommended transcend back to [facility] for reevaluation by cardiothoracic surgery. Patient was also initiated on Proscar to help with urine retention. Since the Grimm catheter was leaking, the nurse removed the Grimm catheter for an attempt of Grimm catheter. Nurse was instructed to obtain bladder scan every 6 hour. Patient was found to have urinary retention greater than 600 mL with multiple attempts by the patient to urinate without any success. Grimm catheter was placed back in. On reevaluation today, patient denies any shortness of breath. He did have incision and drainage and packing of the wound done at bedside by Dr. Olivo on . Patient denies any episode of fever overnight he denies any shortness of breath. Vitals are stable temperature 97.7 pulse 73 respiratory rate 19 and blood pressure 106/58. Labs are suggestive hemoglobin 7.9 and MCV 100.9 liz telet count 541 Eucerin CRP are elevated creatinine 0.89 sodium 135 BUN 24 Swelling in the lower extremity has improved continue IV Lasix. Continue cefepime and vancomycin per ID recommendation. 05/08:patient states he did not sleep well last night. He states he was woken many times during the night. Wound has been packed this morning. He denies having any fever or chills. No diarrhea. No cough and no constipation. He is reaching 1000 on incentive spirometry. Patient has been afebrile, heart rate 63, blood pressure 96/61, pulse ox 90% on room air. WBC 9.3, hemoglobin 8.2, platelet count 539. Sodium 134. Potassium 4, chloride 96, CO2 32, BUN 26 and creatinine 0.93. Blood sugar 133. Patient has been seen by the wound care team with recommendations to apply Adaptic overexpose hardwire, negative pressure wound therapy to be changed on Fridays and patient will follow- up in the wound care center next week. Discharge plan most likely be home with home care and IV antibiotics. 05/09: Repeat chest x-ray reveals cardiomegaly with small left greater than right pleural effusions redemonstrated. Increasing central vascular congestion noted. Correlate for fluid overload state and/or heart failure exacerbation. Repeat blood work reveals W BC 12.5, hemoglobin 8.2, platelet count 554. Sodium 136, potassium 4.3, chloride 99, CO2 33, BUN 29 and creatinine 0.99. Wound VAC ordered for home. Discussed case with Dr. Ordonez in and PICC line will be ordered. Patient states that his breathing is fair. He is concerned that he is on somewhat IV medication before going home. He is using incentive spirometry. Anticipate discharge on Friday or . Patient has been cleared for discharge by cardiothoracic surgery. 05/10: PICC line was placed yesterday. He continues on cefepime and vancomycin per Dr. Chris's recommendations. Dr. Chris has provided prescriptions for daptomycin and cefepime for home. Wound culture at our facility has been finalized with normal skin sharad. He has been afebrile, heart rate 69, blood pressure 110/62, pulse ox 93% on room air. Blood work this morning reveals WBC 13.5, hemoglobin 8.7, platelet count 586. Sodium 133, potassium 4.7, chloride 99, CO2 30, BUN 28 and creatinine 0.85. Blood sugar 105. Patient states that he is doing a little bit better today. He states he walked in the reyna and was less short of breath. Dr. Cottrell plans to see the patient before he goes home. Patient is adamant that he is staying until Friday. Wound VAC, home care and IV antibiotics have all been arranged by field case manager. We will plan to discontinue Grimm catheter today and monitor closely for urinary retention. 05/11: Patient was seen by urology with plan to maintain Grimm and have cystoscopy/urodynamics as an outpatient. Dr. Cottrell evaluated bone yesterday and plan is for wound VAC change on Friday. Patient has been afebrile, heart rate 71, blood pressure 106/54, pulse ox 95% on 3 L nasal cannula. client insights consultant has been a sinus rhythm. WBC 11.9, hemoglobin 7.8, platelet count 484, sodium 134, potassium 4.3, chloride 98, CO2 33, BUN 30 and creatinine 0.96. CK less than 20. C-reactive protein 25.4. Wound VAC in place to sternal wound. Patient states he feels things are finally starting to get better. Patient denies any new complaints. Ambulated in the hallway and difficulty breathing is improving. Review of Systems Constitutional: Denies chills, Denies fever, Denies lethargy, Denies malaise, Denies poor appetite, Denies weakness, Denies weight loss Eyes: denies decreased vision, denies diplopia, denies discharge, denies pain Ears, nose, mouth and throat: Denies dental pain, Denies headache, Denies nasal discharge, Denies nose pain Cardiovascular: Denies chest pain, reports decreased exercise tolerance, Denies edema, Denies high blood pressure, Denies irregular heart beat, Denies palpitations, Denies paroxysmal, Denies rapid heart beat, Denies shortness of breath Respiratory: Denies congestion, Denies cough, Denies cough with sputum, reports dyspneaimproving, Denies home oxygen, Denies wheezing Gastrointestinal: Denies abdominal pain, Denies change in bowel habits, Denies coffee ground emesis, Denies early satiety, Denies excessive gas, Denies heartburn, Denies hematemesis, Denies hematochezia, Denies loss of appetite, Denies nausea, Denies vomiting Genitourinary: Denies dysuria, Denies flank pain, Denies kidney stones, Denies menorrhagia, reports urinary retention Musculoskeletal: Denies gait dysfunction, Denies limitation of motion, Denies morning stiffness, Denies muscle cramps Integumentary: Sternal wound infected, Denies brittle nails, Denies change in hair/nails, Denies darkening of skin Neurological: Denies balance difficulties, Denies change in speech, Denies double vision, Denies gait dysfunction, Denies loss of vision, Denies motor disturbance, Denies numbness, Denies paralysis, Denies paresthesias, Denies seizures Psychiatric: Denies anxiety, Denies depression Endocrine: Denies excessive sweating, Denies excessive thirst, Denies high blood sugars, Denies palpitations Hematologic/Lymphatic: Denies easy bruising, Denies lymphadenopathy Physical Examination - Constitutional General appearance: cooperative, no acute distress, resting in recliner - EENT Eyes: anicteric sclerae, PERRLA, normal appearance ENT: hearing grossly normal - Neck Neck: no lymphadenopathy, normal ROM, no other, no rigidity, no stridor, no thyromegaly - Respiratory Respiratory: bilateral decreased air entry chest wall expansion decreased. Heart Hugger in place - Cardiovascular Rhythm: regular Heart sounds: normal: S1, S2 Abnormal Heart Sounds: no systolic murmur, no diastolic murmur, no rub, no S3 Gallop, no S4 Gallop, no click - Gastrointestinal General gastrointestinal: normal bowel sounds, soft nontender nondistended, Grimm catheter in place - Integumentary Integumentary: chest incision with wound VAC in place, trace bilat pedal edema - Neurologic Neurologic: Normal coordination normal sensation - Musculoskeletal Musculoskeletal: gait normal, strength equal bilaterally no lower extremity edema - Psychiatric Psychiatric: A&O x's 3, appropriate affect Assessment and Plan 1. Post surgical infection of the sternal wound status post opening up of incision bedside and cleaning and packing the area. Wound culture has been sent at [facility]. Continue on vancomycin and cefepime per Dr. Chris. PICC line in place. 2. CAUTI bacteremia secondary to Serratia. Septic shock resolved. Currently on vancomycin and cefepime. 3. H/o triple vessel coronary disease s/p remote inferior wall [place] with RCA stent, post 4 vessel coronary artery bypass grafting with KEANE to the LAD, left radial arterial graft to the OM, SVG to the PDA, SVG to the diagonal with left radial artery harvest along with left lower extremity endoscopy Vein harvest on 04/13. On aspirin 325 mg, Lipitor 4. Acute hypoxic respiratory failure with left pleural effusion, attempted thoracentesis on with minimal output continue Lasix IV 40 mg twice daily. Pulmonary consulted and repeat echo with ejection fraction 50% on 05/03. 5. Postop atrial flutter/ atrial fibrillation status post clip ligation of the left atrial appendage and cardioversion. Oral amiodarone, Lopressor and eliquis. 6. BPH with urinary retention requiring Grimm catheter placement. Last placed on 05/06 on Flomax twice daily on urology recommendation. Finasteride 5 mg by mouth daily 7. Acute blood loss anemia with bone marrow suppression status post 2 units of PRBC and iron infusion at [facility]. Continue daily CBC. Transfuse if hemoglobin less than 7. Continue iron supplementation daily 8. Systolic congestive heart failure with ejection fraction 50% with [id number] left ventricular dysfunction. Last echo obtained on 05/03 9. Hypertension. Continue amiodarone, Lopressor. 10. Hyperlipidemia: atorvastatin 40 mg daily resume medication. 11. History of osteoarthritis post right total knee arthroplasty. 12. Hyperglycemia. NovoLog scale. 13. DVT prophylaxis: Eliquis. 14. GI prophylaxis: Pantoprazole 40 by mouth with breakfast CODE STATUS: Full code. Discharge plan: home with [place] home care, IV antibiotics, wound VAC on Friday Impression and plan of care have been directed as dictated by the signing physician. Alisson Penny nurse practitioner acting as scribe for signing physician. Objective - Vital Signs Vital signs: Vital Signs Temp 97.8 F 05/10/20 20:00 Pulse 71 05/11/20 04:00 Resp 19 05/11/20 04:00 BP 106/54 05/11/20 04:00 Pulse Ox 95 05/11/20 04:00 Intake & Output 05/10/20 05/11/20 05/11/20 18:59 06:59 18:59 Intake Total 600 200 Output Total 2150 2350 Balance -2150 -1750 200 Weight 84.5 kg Intake: Oral 600 200 Output: Urine 2150 2350 Other: Voiding Method Indwelling Catheter Indwelling Catheter # Voids 1 - Labs CBC & Chem 7: 05/11/20 06:13 05/11/20 06:13 Labs: Abnormal Lab Results - Last 24 Hours (Table) 05/11/20 05/11/20 Range/Units 06:13 06:13 WBC 11.9 H (3.8-10.6) k/uL RBC 2.49 L (4.30-5.90) m/uL Hgb 7.8 L (13.0-17.5) gm/dL Hct 25.3 L (39.0-53.0) % MCV 101.8 H (80.0-100.0) fL MCHC 30.7 L (31.0-37.0) g/dL RDW 19.4 H (11.5-15.5) % Plt Count 484 H (150-450) k/uL ESR 52 H (0-15) mm/hr Sodium 134 L (137-145) mmol/L Carbon Dioxide 33 H (22-30) mmol/L BUN 30 H (9-20) mg/dL Creatine Kinase <20 L (55-170) U/L C-Reactive Protein 25.4 H (<10.0) mg/L
--- NOTE | 2020-05-11 12:09 | P.PN ---
Subjective Progress Note Date: 05/11/20 Principal diagnosis: Sternal wound infection, status post recent 4 vessel coronary artery bypass grafting, Serratia bacteremia, urinary tract infection 79-year-old male patient whom I transferred from [facility] to [facility] due to a complication of a surgical abdominal wound infection. The patient was seen on the medical floor and the [facility] and there thoracotomy scar was obviously infected erythematous and red and was draining. I was able to squeeze out some purulent material. Discussed the case with ID and I made to transfer to [facility]. The patient is known to have triple-vessel coronary artery disease post inferior wall MIand RCA stent, status post four-vessel CABG 04/13/2020, mild to moderate left ventricu lar dysfunction with chronic systolic heart failure and preoperative ejection fraction 40-45%, dilated ascending aorta measuring 4.2 cm, hypertension, hyperlipidemia, previous tobacco dependence, pneumonia, BPH, and family history of premature coronary artery disease. He had a positive stress test in February and was recommended to undergo heart catheterization which was completed in March. This demonstrated 80% stenosis to the proximal LAD, 70% stenosis to the mid LAD, 90% stenosis to the circumflex coronary artery, and 95% stenosis to the right coronary artery. Subsequently he was recommended to undergo CABG which was completed 04/13/2020. He did experience postoperative atrial fibrillation /atrial flutter and was placed on amiodarone and Eliquis; in addition he underwent synchronized cardioversion with return to normal sinus rhythm. He also experienced urinary retention requiring replacement of his Grimm catheter, and acute blood loss anemia treated with blood transfusion. Otherwise he had an uneventful hospitalization and was discharged to [facility] inpatient rehab on postoperative day #6 for physical and occupational therapy. He was progressing as expected at [facility] and was expected to be discharged to home with home care this last Friday. Unfortunately Friday night he developed shortness of breath and oxygen desaturation and was felt to be in acute heart failure. He was transferred to the intensive care unit and further investigation showed that the patient had become septic from his sedation Serratia urine checked infection. He did experience some obstructive uropathy. A Grimm cath was inserted and he was given Flomax and the Grimm catheter still in place. He remains on IV cefepime regarding his sepsis and the patient was also started on vancomycin. Awaiting cardiothoracic surgical evaluation regarding the surgical wound infection. On 05/08/2020 patient seen in follow-up on selective care unit, he sitting up in the recliner, in no acute distress, room air pulse ox is 98%, hemodynamically patient is stable, breathing is comfortable, no worsening dyspnea, no fever or chills since admission, he remains on cefepime and vancomycin. His sternal wound is still draining significantly, requiring frequent dressing changes, the output is serous in nature, cardiothoracic surgery is following, ID service is following. Lung sounds are clear. Today's labs have been reviewed, showing with blood cell count 9.3, hemoglobin of 8.2, sodium is 134, potassium is 4.0, chloride is 97, CO2 32, B1 is 26, creatinine 0.93. Patient had anterior chest incision opened at the bedside, and deep cultures were taken and the wound was cleaned and packed. No altered mentation, vital signs are stable, working on incentive spirometer, achieving 1250 on the today. On 05/09/2020 patient seen in follow-up on selective care unit, sitting up in a recliner, in no acute distress, room air pulse ox is 96%, no complaints of respiratory distress, afebrile, hemodynamically stable, he had a wound VAC applied to his sternal wound, and a suction catheter is one third fall with pink purulent drainage. Remains on antibiotics including vancomycin and cefepime, ID service is following. Lung sounds are clear, diminished at the bases, patient is working on the incentive spirometer, today's labs have been noted, with blood cell count is 12.5, hemoglobin is 8.2, sodium is 136, potassium is 4.3, chloride is 99, CO2 33, B1 is 29 creatinine 0.9. Today's chest x-ray shows some cardiomegaly with small left greater than right pleural effusions, and increasin g central vascular congestion with consideration for fluid overload and/or CHF exacerbation. Patient remains on IV Lasix at 40 mg every 12 hours and is in the 1.8 L negative fluid balance over the last 24 hours. No worsening dyspnea, no worsening oxygenation. On 05/10/2020 patient seen in follow-up on selective care unit. He is calm and comfortable, sitting up in the recliner, in no acute distress, on room air with pulse ox of 93-94%, afebrile, hemodynamically patient is stable, lung sounds are clear to auscultation, sternal wound has a wound VAC in place, to continue suction, and the canister is about half full with pink tinged purulent drainage, patient is on IV antibiotics, PICC line was inserted, ID service is following, sternal wound wound culture has shown no growth so far. Today's labs have been noted, no new labs today. No pulmonary complaints. Current antibiotic coverage includes cefepime and daptomycin, vancomycin has been discontinued, patient is on Zaroxolyn for diuretic therapy, he is in -2.1 L fluid balance over the last 24 hours. The patient is seen today 05/11/2020 in follow-up on the selective care unit. He is currently sitting up in a chair at the bedside. Awake and alert in no acute distress. No worsening shortness of breath, cough or congestion. Ma intaining O2 saturations in the mid 90s on room air. He is hemodynamically stable. Currently afebrile. During one remains with wound VAC in place. To remain with indwelling Grimm catheter per urology. White count 11.9. Hemoglobin 7.8. Sodium 134. Potassium 4.3. Creatinine 0.96. He is continued on daptomycin and cefepime. Objective - Vital Signs Vital signs: Vital Signs Temp 97.8 F 05/10/20 20:00 Pulse 71 05/11/20 04:00 Resp 19 05/11/20 04:00 BP 106/54 05/11/20 04:00 Pulse Ox 95 05/11/20 04:00 Intake & Output 05/10/20 05/11/20 05/11/20 18:59 06:59 18:59 Intake Total 600 200 Output Total 2150 2350 Balance -2149 -175 200 Weight 84.5 kg 84.5 kg Intake: Oral 600 200 Output: Urine 2150 2350 Other: Voiding Method Indwelling Catheter Indwelling Catheter # Voids 1 - Exam GENERAL EXAM: Alert, very pleasant, 79-year-old male patient, on room air comfortable in no apparent distress. Room air pulse ox is 97% HEAD: Normocephalic/atraumatic. EYES: Normal reaction of pupils, equal size. Conjunctiva pink, sclera white. NOSE: Clear with pink turbinates. THROAT: No erythema or exudates. NECK: No masses, no JVD, no thyroid enlargement, no adenopathy. CHEST: No chest wall deformity. Symmetrical expansion. Sternal incision covered with the wound VAC, and the canister is up one third fall with pink tinged purulent drainage LUNGS: Equal air entry with faint crackles in the posterior bases. CVS: Regular rate and rhythm, normal S1 and S2, no gallops, no murmurs, no rubs ABDOMEN: Soft, nontender. No hepatosplenomegaly, normal bowel sounds, no guarding or rigidity. EXTREMITIES: No clubbing, no edema, no cyanosis, 2+ pulses and upper and lower extremities. MUSCULOSKELETAL: Muscle strength and tone normal. SPINE: No scoliosis or deformity SKIN: No rashes CENTRAL NERVOUS SYSTEM: No focal deficits, tone is normal in all 4 extremities. PSYCHIATRIC: Alert and oriented -3. Appropriate affect. Intact judgment and insight. - Labs CBC & Chem 7: 05/11/20 06:13 05/11/20 06:13 Labs: Abnormal Lab Results - Last 24 Hours (Table) 05/11/20 05/11/20 Range/Units 06:13 06:13 WBC 11.9 H (3.8-10.6) k/uL RBC 2.49 L (4.30-5.90) m/uL Hgb 7.8 L (13.0-17.5) gm/dL Hct 25.3 L (39.0-53.0) % MCV 101.8 H (80.0-100.0) fL MCHC 30.7 L (31.0-37.0) g/dL RDW 19.4 H (11.5-15.5) % Plt Count 484 H (150-450) k/uL ESR 52 H (0-15) mm/hr Sodium 134 L (137-145) mmol/L Carbon Dioxide 33 H (22-30) mmol/L BUN 30 H (9-20) mg/dL Creatine Kinase <20 L (55-170) U/L C-Reactive Protein 25.4 H (<10.0) mg/L Assessment and Plan Assessment: 1 infection of the sternal wound, evaluated by cardiothoracic surgery, the sternal wound incision was incised and drained at the bedside, deep cultures were taken, and the wound is currently packed. The patient is currently on accommodation cefepime and daptomycin. Cultures were obtained and Gram stain showed no organisms. Wound VAC has been applied to continuous suction 2 recent septic shock secondary to Serratia UTI. The patient was bacteremic and the patient could have also seeded his sternal wound. 3 coronary artery disease with previous inferior wall NH and previous stenting of RCA with subsequent four-vessel bypass surgery on 04/15/2020 4 proximal atrial fibrillation/flutter postop, current rhythm is sinus 5 obstructive uropathy and urinary retention and patient has a Grimm catheter in place currently on Flomax 6 CHF with an ejection fraction 40-45% 7 mildly dilated ascending aorta measuring 4.2 cm 8 hypertension 9 hyperlipidemia 10 bilateral pleural effusions post bypass surgery and the patient got diuresed adequately with IV Lasix with an attempted thoracentesis of the drained minimal amount of fluid from the left lung. 11 BPH Plan: The patient was seen and evaluated by Dr. Martinez Currently stable from the pulmonary standpoint Doing well on room air Continue current antibiotics Probable discharge in the a.m. I, the cosigning physician, performed a history & physical examination of the patient. Lungs sounds with faint crackles in the posterior bases. Maintaining good O2 saturations in the 90s on room air. I discussed the assessment and plan of care with my nurse practitioner, Maegan Zavala. I attest to the above note as di ctated by her.
[2020-05-11] MEDS: DAPTOmycin 500 MG in SODIUM CHLORIDE 0.9% 50 ML IVPB SCH (15:03)
--- NOTE | 2020-05-11 18:49 | PN ---
PROGRESS NOTE DATE OF SERVICE: 05/11/2020 REASON FOR FOLLOWUP: 1. Serratia marcescens UTI and bacteremia. 2. Sternal wound and cellulitis. INTERVAL HISTORY: The patient is currently afebrile, has been breathing comfortably. The patient denies having any chest pain or shortness of breath or cough. No nausea, no vomiting and no diarrhea. PHYSICAL EXAMINATION: Blood pressure is 111/60 with a pulse of 84, temperature 97.9. He is 93% on room air. General description is an elderly male up in the chair in no distress. RESPIRATORY SYSTEM: Unlabored breathing. Clear to auscultation anteriorly. HEART: S1, S2. Regular rate and rhythm. ABDOMEN: Soft. No tenderness. LABS: Hemoglobin is 7.9, white count 11.9, BUN of 30, creatinine 0.97. DIAGNOSTIC IMPRESSION AND PLAN: 1. Patient with a chest wall wound, status post debridement. Culture positive for Staph epi. Patient is covered with daptomycin, planning for a total 4-week course of therapy. Local care to continue with wound V.A.C. 2. Serratia marcescens bacteremia secondary to urinary tract infection. Continue with cefepime for another week to finish his course of therapy. MMODL / IJN: [id number] /
[2020-05-11] MEDS: SENNOSIDES-DOCUSATE SODIUM 1 EACH TAB PO SCH (22:09)
[2020-05-12] MEDS: FERROUS SULFATE 325 MG TAB PO SCH (06:35)
[2020-05-12] MEDS: PANTOPRAZOLE 40 MG TABLET PO SCH (06:36)
[2020-05-12] MEDS: MIDODRINE 5 MG TAB PO SCH (06:36)
[2020-05-12] MEDS: BUDESONIDE 0.5 MG/2 ML NEBU INHALATION SCH (07:48)
[2020-05-12 08:07] LABS: Anisocytosis Slight; HCT 24.4 % (39.0-53.0); HGB 7.4 gm/dL (13.0-17.5); Hypochromasia Marked; MCHC 30.6 g/dL (31.0-37.0); MCV 101.6 fL (80.0-100.0); Macrocytosis Moderate; Mean Platelet Volume 8.6; Platelet Count 479 k/uL (150-450); Poikilocytosis Slight; WBC 9.9 k/uL (3.8-10.6)
[2020-05-12] MEDS: FUROSEMIDE 10 MG/ML 4 ML VIAL IV SCH (09:04)
[2020-05-12] MEDS: METOPROLOL TARTRATE 12.5 MG TAB PO SCH (09:04)
[2020-05-12] MEDS: metOLazone 5 MG TAB PO SCH (09:04)
[2020-05-12] MEDS: AMIODARONE 200 MG TAB PO SCH (09:04)
[2020-05-12] MEDS: MULTIVITAMINS, THERA 1 EACH TAB PO SCH (09:04)
[2020-05-12] MEDS: TAMSULOSIN 0.4 MG CAP.ER.24H PO SCH (09:04)
[2020-05-12] MEDS: FINASTERIDE 5 MG TAB PO SCH (09:04)
[2020-05-12] MEDS: HEPARIN SODIUM,PORCINE 5,000 UNIT/ML 1 ML VIAL SQ SCH (09:04)
[2020-05-12] MEDS: ASPIRIN 325 MG TAB PO SCH (09:04)
[2020-05-12] MEDS: ASCORBIC ACID 500 MG TAB PO SCH (09:04)
[2020-05-12] MEDS: CEFEPIME 2 GM in SODIUM CHLORIDE 0.9% 100 ML IVPB SCH (09:05)
[2020-05-12] MEDS: DAPTOmycin 500 MG in SODIUM CHLORIDE 0.9% 50 ML IVPB SCH (09:06)
[2020-05-12 09:21] VITALS: BP 107/55; PULSE 74; RESP 16; TEMP 96.9
--- NOTE | 2020-05-12 12:38 | P.DS ---
Providers Date of admission: 05/06/20 16:56 Expected date of discharge: 05/12/20 Attending physician: Telly Guallpa Consults: 05/06/20 18:32 Consult Physician Routine Consulting Provider: Charles Olivo Consult Reason/Comments: sternal incision infection Do you want consulting provider notified?: Yes Consult Physician Routine Consulting Provider: Nellie Chris Consult Reason/Comments: sternal incision infection Do you want consulting provider notified?: Yes 05/06/20 18:35 Consult Physician Routine Consulting Provider: Lee Vasquez Consult Reason/Comments: [facility] transfer, known patient Do you want consulting provider notified?: Yes, Notify in am 05/10/20 14:12 Consult Physician Routine Consulting Provider: Raul Best Consult Reason/Comments: urinary retention Do you want consulting provider notified?: Yes Primary care physician: Telly Guallpa [facility] Course: 79-year-old male patient of Dr. guallpa with long-standing history of CAD post KS with history of PCI and stent placement of the right coronary artery disease over 10 years ago who is known to have history of hypertension hyperlipidemia and previous history of tobacco dependency patient has been doing natural management for many years started noticing significant shortness of breath and decrease endurance when attempted to walk and ambulate was seen Dr. FRANK patel and end up going for stress test showed moderate area of infarct ischemic change patient ended up going for heart cath on 03/09/2020 finding was consistent with 80 percentile blockage of the LAD, 70% blockage in the mid LAD, 90% blockage of the circumflex and 95% blockage of the RCA, underwent 4 vessel bypass surgery on 2019 and was sent to the ICU on mechanical ventilation. Postoperatively patient did experience atrial fibrillation/atrial flutter and was placed on a meter on an ad guzman. (. He also underwent synchronized cardioversion with return to normal sinus rhythm. Patient also received 1 unit of packed RBC while at [facility] for acute blood loss anemia. He was also found to have urinary retention for which he was placed on Grimm catheter and was sent to inpatient rehab at [facility]. Patient was given iron infusion at [facility] and 2 attempts were made to remove Grimm catheter without any success. Patient is started on Flomax to help with urine retention. Patient was noted to be short of breath on discharge to inpatient rehab on 8/18 and found to have left pleural effusion. Patient was diuresed with IV Lasix. Patient was doing well and was planned to be discharged on 05/04 but on 05/03 , he developed she worsening shortness of breath with drop in oxygen saturation to 74% on nonrebreather, patient was placed in on BiPAP and was transferred to the ICU. Chest CT was obtained that showed an congestive heart failure with mild infiltrate. Pulmonary attempted thoracentesis with minimal output. The echo suggested an EF of 50% hemoglobin of 6.9 requiring transfusion. Urine and blood culture was was positive for Serratia and patient was placed on cefepime by Dr. Chris On 05/06 she was noted to have increased redness and drainage around the incision site from coronary artery bypass graft. Infectious disease recommended transcend back to [facility] for reevaluation by cardiothoracic surgery. Patient was also initiated on Proscar to help with urine retention. Since the Grimm catheter was leaking, the nurse removed the Grimm catheter for an attempt of Grimm catheter. Nurse was instructed to obtain bladder scan every 6 hour. Patient was found to have urinary retention greater than 600 mL with multiple attempts by the patient to urinate without any success. Grimm catheter was placed back in. On reevaluation today, patient denies any shortness of breath. He did have inc ision and drainage and packing of the wound done at bedside by Dr. Olivo on . Patient denies any episode of fever overnight he denies any shortness of breath. Vitals are stable temperature 97.7 pulse 73 respiratory rate 19 and blood pressure 106/58. Labs are suggestive hemoglobin 7.9 and MCV 100.9 platelet count 541 Eucerin CRP are elevated creatinine 0.89 sodium 135 BUN 24 Swelling in the lower extremity has improved continue IV Lasix. Continue cefepime and vancomycin per ID recommendation. 05/08:patient states he did not sleep well last night. He states he was woken many times during the night. Wound has been packed this morning. He denies having any fever or chills. No diarrhea. No cough and no constipation. He is reaching 1000 on incentive spirometry. Patient has been afebrile, heart rate 63, blood pressure 96/61, pulse ox 90% on room air. WBC 9.3, hemoglobin 8.2, platelet count 539. Sodium 134. Potassium 4, chloride 96, CO2 32, BUN 26 and creatinine 0.93. Blood sugar 133. Patient has been seen by the wound care team with recommendations to apply Adaptic overexpose hardwire, negative pressure wound therapy to be changed on Fridays and patient will follow- up in the wound care center next week. Discharge plan most likely be home with home care and IV antibiotics. 05/09: Repeat chest x-ray reveals cardiomegaly with small left greater than right pleural effusions redemonstrated. Increasing central vascular congestion noted. Correlate for fluid overload state and/or heart failure exacerbation. Repeat blood work reveals W BC 12.5, hemoglobin 8.2, platelet count 554. Sodium 136, potassium 4.3, chloride 99, CO2 33, BUN 29 and creatinine 0.99. Wound VAC ordered for home. Discussed case with Dr. Ordonez in and PICC line will be ordered. Patient states that his breathing is fair. He is concerned that he is on somewhat IV medication before going home. He is using incentive spirometry. Anticipate discharge on Friday or . Patient has been cleared for discharge by cardiothoracic surgery. 05/10: PICC line was placed yesterday. He continues on cefepime and vancomycin per Dr. Chris's recommendations. Dr. Chris has provided prescriptions for daptomycin and cefepime for home. Wound culture at our facility has been finalized with normal skin sharad. He has been afebrile, heart rate 69, blood pressure 110/62, pulse ox 93% on room air. Blood work this morning reveals WBC 13.5, hemoglobin 8.7, platelet count 586. Sodium 133, potassium 4.7, chloride 99, CO2 30, BUN 28 and creatinine 0.85. Blood sugar 105. Patient states that he is doing a little bit better today. He states he walked in the reyna and was less short of breath. Dr. Cottrell plans to see the patient before he goes home. Patient is adamant that he is staying until Friday. Wound VAC, home care and IV antibiotics have all been arranged by complex case manager. We will plan to discontinue Grimm catheter today and monitor closely for urinary retention. 05/11: Patient was seen by urology with plan to maintain Grimm and have cystoscopy/urodynamics as an outpatient. Dr. Cottrell evaluated bone yesterday and plan is for wound VAC change on Friday. Patient has been afebrile, heart rate 71, blood pressure 106/54, pulse ox 95% on 3 L nasal cannula. monitor car operator has been a sinus rhythm. WBC 11.9, hemoglobin 7.8, platelet count 484, sodium 134, potassium 4.3, chloride 98, CO2 33, BUN 30 and creatinine 0.96. CK less than 20. C-reactive protein 25.4. Wound VAC in place to sternal wound. Patient states he feels things are finally starting to get better. Patient denies any new complaints. Ambulated in the hallway and difficulty breathing is improving. 05/12: Patient denies any new complaints today. He states he is ready to go home. He is on tapering dose of amiodarone which will be completed this weekend and discontinued. Home IV antibiotics and home care set up. Patient has a wound VAC arranged by complex case manager. He has been afebrile, heart rate 74, blood pressure 107/55, pulse ox 95% on room air. Repeat blood work reveals hemoglobin 7.4, platelet count 479. WBC 9.9. Patient will be discharged home today in stable condition. Assessment and Plan 1. Post surgical infection of the sternal wound with wound culture positive for staph epi. 2. CAUTI bacteremia secondary to Serratia. 3. H/o triple vessel coronary disease s/p remote inferior wall KS with RCA stent, post 4 vessel coronary artery bypass grafting with KEANE to the LAD, left radial arterial graft to the OM, SVG to the PDA, SVG to the diagonal with left radial artery harvest along with left lower extremity endoscopy Vein harvest on 04/13. 4. Acute hypoxic respiratory failure with left pleural effusion, attempted thoracentesis on 05/04 with minimal output 5. Postop atrial flutter/ atrial fibrillation status post clip ligation of the left atrial appendage and cardioversion. 6. BPH with urinary retention requiring Grimm catheter placement. 7. Acute blood loss anemia with bone marrow suppression status post 2 units of PRBC and iron infusion at [facility]. 8. Chronic systolic congestive heart failure with improvement of ejection fraction 50% with [id number] left ventricular dysfunction. 9. Hypertension 10. Hyperlipidemia 11. History of osteoarthritis post right total knee arthroplasty. 12. Hyperglycemia. Discharge plan: home with [facility] care, IV antibiotics, wound VAC on Friday Impression and plan of care have been directed as dictated by the signing physician. Alisson Penny nurse practitioner acting as scribe for signing physician. Patient Condition at Discharge: Good Plan - Discharge Summary Discharge Rx Participant: Yes New Discharge Prescriptions: New DAPTOmycin [Cubicin] 500 mg IV DAILY #28 bag Cefepime [Maxipime] 2 gm IVPB Q12H #14 bag Aspirin 325 mg PO DAILY tab Amiodarone [Cordarone] 200 mg PO DAILY #2 tab Furosemide [Lasix] 40 mg PO BID #60 tablet Atorvastatin [Lipitor] 40 mg PO HS #30 tablet Nitroglycerin Sl Tabs [Nitrostat] 0.4 mg SUBLINGUAL Q5M PRN #25 tab PRN Reason: Chest Pain Midodrine [ProAmatine] 10 mg PO AC-BID #90 tab Finasteride [Proscar] 5 mg PO DAILY #30 tab Benzonatate [Tessalon Perles] 100 mg PO TID PRN #30 cap PRN Reason: Cough metOLazone [Zaroxolyn] 5 mg PO DAILY #30 tab Continue Ferrous Sulfate [Iron (65 MG Elemental)] 325 mg PO BID-W/MEALS tab Multivitamins, Thera [Multivitamin (formulary)] 1 each PO DAILY tab Pantoprazole [Protonix] 40 mg PO AC-BRKFST tablet.dr Barrientos-Docusate Sodium [Senokot-S] 2 each PO HS tab Acetaminophen Tab [Tylenol] 1,000 mg PO Q6HR PRN tab PRN Reason: Fever And/ Or Pain Ascorbic Acid [Vitamin C] 500 mg PO BID-W/MEALS tab Tamsulosin [Flomax] 0.4 mg PO BID #60 cap.er.24h Metoprolol Tartrate [Lopressor] 12.5 mg PO BID #60 tab Discontinued Apixaban [Eliquis] 5 mg PO BID tab Atorvastatin [Lipitor] 40 mg PO DAILY tab amLODIPine [Norvasc] 2.5 mg PO DAILY@1200 tab Amiodarone [Cordarone] See Taper PO DIRECTED Discharge Medication List Acetaminophen Tab [Tylenol] 1,000 mg PO Q6HR PRN tab 04/19/20 [Rx] Ascorbic Acid [Vitamin C] 500 mg PO BID-W/MEALS tab 04/19/20 [Rx] Ferrous Sulfate [Iron (65 MG Elemental)] 325 mg PO BID-W/MEALS tab 04/19/20 [Rx] Multivitamins, Thera [Multivitamin (formulary)] 1 each PO DAILY tab 04/19/20 [Rx] Pantoprazole [Protonix] 40 mg PO AC-BRKFST tablet. 04/19/20 [Rx] Sennosides-Docusate Sodium [Senokot-S] 2 each PO HS tab 04/19/20 [Rx] Cefepime [Maxipime] 2 gm IVPB Q12H #14 bag 05/10/20 [Rx] DAPTOmycin [Cubicin] 500 mg IV DAILY #28 bag 05/10/20 [Rx] Amiodarone [Cordarone] 200 mg PO DAILY #2 tab 05/12/20 [Rx] Aspirin 325 mg PO DAILY tab 05/12/20 [Rx] Atorvastatin [Lipitor] 40 mg PO HS #30 tablet 05/12/20 [Rx] Benzonatate [Tessalon Perles] 100 mg PO TID PRN #30 cap 05/12/20 [Rx] Finasteride [Proscar] 5 mg PO DAILY #30 tab 05/12/20 [Rx] Furosemide [Lasix] 40 mg PO BID #60 tablet 05/12/20 [Rx] Metoprolol Tartrate [Lopressor] 12.5 mg PO BID #60 tab 05/12/20 [Rx] Midodrine [ProAmatine] 10 mg PO AC-BID #90 tab 05/12/20 [Rx] Nitroglycerin Sl Tabs [Nitrostat] 0.4 mg SUBLINGUAL Q5M PRN #25 tab 05/12/20 [Rx] Tamsulosin [Flomax] 0.4 mg PO BID #60 cap.er.24h 05/12/20 [Rx] metOLazone [Zaroxolyn] 5 mg PO DAILY #30 tab 05/12/20 [Rx] Follow up Appointment(s)/Referral(s): [facility], [NON-STAFF] - Zee Knowles MD [STAFF PHYSICIAN] - 1 Week (office will call with follow up appointment date and time) Charles Olivo MD [STAFF PHYSICIAN] - 05/26/20 10:00 am Paolo Alfaro MD [STAFF PHYSICIAN] - 05/19/20 8:40 am Telly Guallpa MD [Primary Care Provider] - 05/16/20 9:30 am [facility] [NON-STAFF] - 05/17/20 8:00 am Nellie Chris MD [STAFF PHYSICIAN] - 1 Week (office will call you with follow up appointment date and time) Lee Vasquez MD [STAFF PHYSICIAN] - 06/01/20 2:30 pm Ambulatory/Diagnostic Orders: Basic Metabolic Panel [LAB.AMB] Location: None Selected C Reactive Protein [LAB.AMB] Location: None Selected Erythrocyte Sedimentation Rate [LAB.AMB] Location: None Selected Miscellaneous Lab Order [LAB.AMB] Location: None Selected Activity/Diet/Wound Care/Special Instructions: DISCHARGE INSTRUCTIONS: 1. No driving for 4 weeks, or until physician gives their ok. 2. The patient should sleep in their own bed, no medical bed needed. 3. Stairs are not an issue. If the bedroom is upstairs, it is advised that the patient go up at night and down in the morning for the first week. Go slowly, using handrail and take 1 step at a time. 4. GLORIA hose are to be worn for 30 days or until physician discontinues. 5. Heart hugger is to be worn 100% of the time until physician discontinues.(except when showering) 6. No lifting, pushing, or pulling more than 10 pounds for 12 weeks. The physician will advise of any restriction changes. 7. The patient is expected to continue the prescribed walking program. 8. Continue pain control per as needed orders. 9. Continue with incentive spirometry and splinting/heart hugger until otherwise directed by the physician. 10. Must shower daily using liquid antibacterial soap and a separate white washcloth for each individual incision. 11. Routine sternal incision care. No powders, lotions, ointments on incisions. No dressings are necessary on incisions unless they are draining. 12. Please call surgeon/PRIVACY COMPLIANCE MANAGER for temp greater than 101 F or purulent drainage from incisions. 13. All prescriptions need to be filled through [facility]/primary care physician. 15. A Red armband has been placed on the patient. It should be worn for 30 days post surgery and will be removed by the cardiac surgeons. If an ER visit is necessary, please make sure the number on the Red armband is called. 16. You have been referred to and are expected to begin Cardiac Rehab in approximately 4-6 weeks. HOME HEALTH SERVICES TO PROVIDE: RN SKILLED HOME CARE SERVICES FOR POST-OP SURGICAL PATIENTS WITH THE FOLLOWING: Coronary Artery Bypass Surgery (CABG), Mitral Valve Replacement/Repair ( MVR), Aortic Valve Replacement/Repair (AVR) RN TO CONTINUE EDUCATION FROM ``ROAD TO A HEALTH HEART PATIENT EDUCATION MANUAL (GIVEN TO PATIENT IN THE HOSPITAL) MEDICATION RECONCILIATION WITH EDUCATION NEEDED ON FIRST HOME VISIT EMPHASIZE IMPORTANCE OF WEARING BREAST SUPPORT/HEART HUGGER ENCOURAGE USE OF INCENTIVE SPIROMETER 10 X EVERY HOUR WHILE AWAKE ENCOURAGE UTILIZATION OF LOWER EXTREMITY COMPRESSION STOCKINGS/GLORIA HOSE and ELEVATE LEGS ABOVE LEVEL OF HEART WHILE AT REST. ENCOURAGE AMBULATION 3-5x/day INCREASING TOLERATES, WHILE AVOIDING EXTREMES IN TEMPERATURE FREQUENCY: RN TO OPEN THE PATIENT WITHIN 24 HOURS OF DISCHARGE FROM THE HOSPITAL WITH TELEHEALTH INSTALLED AT [facility] – [place], [place], RN TO VISIT 2-3 X A WEEK FOR 4 WEEKS ESTABLISHED BY PATIENT NEEDS. LABORATORY: CBC, CMP TO BE DRAWN ON THE THIRD DAY HOME, (RAN STAT) FAX RESULTS TO [phone]. TELEHEALTH PARAMETERS: WEIGHT: NOTIFY MD OF WEIGHT GAIN OF 2 LBS IN 24 HOURS OR 5 LBS IN ONE WEEK HR: NOTIFY MD OF HR <55 BPM OR HR>100 BPM BP: NOTIFY MD IF BP <90/55 OR BP>140/100 O2 SAT: NOTIFY MD IF PO2<93% ON ROOM AIR SEND TELEHEALTH REPORT TO STATIONARY EQUIPMENT MECHANIC AND CARDIOVASCULAR SURGEON THE FIRST WEEK OF CARE AND THEN BI-WEEKLY. PLEASE ADDITIONALLY COMMUNICATE ANY ABNORMALS AND NEW FINDINGS TO THE SURGEONS OFFICE. For any questions or concerns please call trial consultant Sho @ or Don @ Discharge Disposition: HOME WITH HOME HEALTH SERVICES
--- NOTE | 2020-05-12 13:53 | P.PN ---
Subjective Progress Note Date: 05/12/20 Principal diagnosis: Superficial sternal incision infection with staph epi, Serratia UTI and bacteremia present at [facility], left pleural effusion at [facility] with attempted thoracentesis. Previous medical history of coronary artery disease, status post remote inferior wall OK with RCA stent, status post four-vessel CABG 04/15/2020, with postoperative acute blood loss anemia status post transfusion, atrial fibrillation/flutter status post clip ligation of the left atrial appendage and cardioversion, urinary retention with Grimm catheter replacement, mild to moderate left ventricular dysfunction, chronic systolic heart failure, preoperative EF 40-45%, EF 50% on TTE 05/03, mild mitral valve regurgitation, moderately dilated ascending aorta 4.2 cm, hypertension, hyperlipidemia, pr evious tobacco dependence, remote history of pneumonia, BPH, and family history of premature coronary artery disease The patient's currently sitting up in a recliner in the cardiac stepdown unit in no acute distress. States chest discomfort is controlled with Tylenol, denies shortness of breath currently. Continues to feel better every day. Remains afebrile. Remains in normal sinus rhythm. Wound VAC changed Friday with Dr. Olivo. Daptomycin and cefepime continue per infectious disease. Patient has been ambulatory in the hallway without difficulty. Patient seen by urology, recommendations were to continue Grimm catheter upon discharge and patient is to follow up outpatient for cystoscopy. Patient states he is ready to go home today Objective - Vital Signs Vital signs: Vital Signs Temp 96.9 F L 05/12/20 08:00 Pulse 74 05/12/20 08:00 Resp 16 05/12/20 08:00 BP 107/55 05/12/20 08:00 Pulse Ox 95 05/12/20 08:00 Intake & Output 05/11/20 05/12/20 05/12/20 18:59 06:59 18:59 Intake Total 3290 240 Output Total 1300 2500 Balance 1989 -2499 240 Weight 84.5 kg 84.3 kg Intake: Intake, IV Titration 100 Amount Cefepime 2 gm In Sodium 100 Chloride 0.9% 100 ml @ 25 mls/hr IVPB Q12HR [facility] Rx #:[id number] Oral 3190 240 Output: Urine 1300 2500 Other: Voiding Method Indwelling Catheter Indwelling Catheter Indwelling Catheter # Voids 1 # Bowel Movements 0 - Constitutional General appearance: Present: cooperative, no acute distress - Respiratory Details: Lungs sounds diminished bilaterally. Respirations even, nonlabored. Currently on room air with oxygen saturation 95%. Able to achieve 1250 mL on his i ncentive spirometry. Strong cough - Cardiovascular Details: S1, S2 present. Regular rate and rhythm, sinus rhythm on telemetry. Sternum stable. Palpable peripheral pulses bilaterally. No edema present. Heart hugger in place with patient demonstrating appropriate use. SCDs present. - Gastrointestinal Gastrointestinal Comment(s): Abdomen soft, nontender, nondistended. Active bowel sounds present 4 quadrants . Tolerating diet. - Genitourinary Genitourinary Comment(s): Grimm catheter present draining clear, yellow urine. - Integumentary Integumentary Comment(s): Skin is warm and dry with evidence of good perfusion. Anterior chest incision opened, wound VAC changed Friday, draining pink tinged fluid - Neurologic Neurologic: Present: CNII-XII intact - Musculoskeletal Musculoskeletal: Present: gait normal, strength equal bilaterally - Psychiatric Psychiatric: Present: A&O x's 3, appropriate affect, intact judgment & insight - Allied health notes Allied health notes reviewed: nursing - Labs CBC & Chem 7: 05/12/20 07:06 05/11/20 06:13 Labs: Abnormal Lab Results - Last 24 Hours (Table) 05/12/20 Range/Units 07:06 RBC 2.40 L (4.30-5.90) m/uL Hgb 7.4 L (13.0-17.5) gm/dL Hct 24.4 L (39.0-53.0) % MCV 101.6 H (80.0-100.0) fL MCHC 30.6 L (31.0-37.0) g/dL RDW 20.0 H (11.5-15.5) % Plt Count 479 H (150-450) k/uL Assessment and Plan Assessment: 1. Superficial sternal incision infection, surface culture positive for staph epi, deep wound culture negative 2. Serratia UTI and bacteremia present at [facility] 3. Left pleural effusion at [facility] with attempted thoracentesis 4. History of coronary artery disease, status post remote inferior wall [place] with RCA stent, status post four-vessel CABG 04/15/2020, with postoperative acute blood loss anemia status post transfusion, atrial fibrillation/flutter status post clip ligation of the left atrial appendage and cardioversion, urinary retention with Grimm catheter replacement 5. Mild to moderate left ventricular dysfunction, chronic systolic heart failure, preoperative EF 40-45%, EF 50% on TTE 05/03 6. Mild mitral valve regurgitation 7. Moderately dilated ascending aorta 4.2 cm 8. History of hypertension 9. Hyperlipidemia 10. Previous tobacco dependence 11. Remote history of pneumonia 11. BPH with continued urinary retention 12. Family history of premature coronary artery disease Plan: 1. Wound VAC change Friday with Dr. Olivo. Wound VAC needs to be changed Friday, Friday, Friday. Friday and Friday can be changed by home care nurse, Friday can be changed in the wound care center, appointment made. Wound VAC removed and wound packed with sterile wet dressing for discharge home, home wound VAC to be applied by home care who will meet patient at his house 2. Continue antibiotics per Dr. Chris. Son is willing to administer IV antibiotics. Patient to go home on IV daptomycin daily for 28 days, cefepime twice daily [address] Chris 3. Continue full strength aspirin, statin, beta branden therapy 4. Continue amiodarone by mouth for 1 week then discontinue (05/14/20) per taper orders. Eliquis discontinued, patient is not to be discharged home on Eliquis 5. Bronchodilators, inhaled steroids per pulmonology. Encourage incentive spirometry use 6. Increase activity, ambulate as tolerated. PT/OT following 7. Daily weights and strict accurate intake and output 8. Continue Lasix, iron/vitamin C, Flomax/Proscar. Per urology patient should be discharged to home with Grimm catheter to follow-up as an outpatient for cystoscopy. RN to do teaching regarding catheter drainage 9. Continue postoperative lifting restrictions 10. GI/DVT prophylaxis 11. Patient may be discharged to home with home care from cardiothoracic standpoint. Patient should follow-up with Dr. Olivo in the office May 26 at 10 AM 12. More recommendations to follow Time with Patient: Greater than 30
--- NOTE | 2020-05-12 15:28 | PN ---
PROGRESS NOTE DATE OF SERVICE: 05/12/2020 REASON FOR FOLLOWUP: 1. Sternal wound infection. 2. Serratia marcescens bacteremia and UTI. INTERVAL HISTORY: The patient was seen on rounds early this afternoon. The patient was afebrile, breathing comfortably. No chest pain or cough. No nausea. No vomiting. No abdominal pain or diarrhea. PHYSICAL EXAMINATION: Blood pressure 107/55 with a pulse of 74, temperature 96.9. He is 95% on room air. General description is an elderly male up in the chair in no distress. RESPIRATORY SYSTEM: Unlabored breathing. Clear to auscultation anteriorly. HEART: S1, S2. Regular rate and rhythm. ABDOMEN: Soft. No tenderness. LABS: White count normalized at 9.0. Sed rate of 52. CRP of 24.4. DIAGNOSTIC IMPRESSION AND PLAN: 1. Patient with sternal wound infection, status post debridement cultures were positive for Staphylococcus epidermidis with a vancomycin MAYRA of 2. Patient on daptomycin 500 mg daily. Please continue for another 4 weeks to finish course of therapy. 2. Serratia marcescens urinary tract infection and bacteremia. Continue cefepime for another week and close outpatient followup. MMODL / IJN: [id number] /
== END 2020-05-12 14:13 | disposition home health service (06) | DRG 863 ==
LOC: 3SCARD 16:56
PROVIDERS: ADMIT Internal Medicine Geriatric Medicine; ATTEND Internal Medicine Geriatric Medicine
PROC: 3E10X8X Irrigation of Skin and Mucous Membranes using Irrigating Substance, Diagnostic (ICD-10-PCS; principal; 2020-05-07)
PROC: 02HV33Z Insertion of Infusion Device into Superior Vena Cava, Percutaneous Approach (ICD-10-PCS; 2020-05-09)
DX: T81.41XA Infection following a procedure, superficial incisional surgical site, initial encounter (principal); R78.81 Bacteremia; T81.31XA Disruption of external operation (surgical) wound, not elsewhere classified, initial encounter; L03.313 Cellulitis of chest wall; D62 Acute posthemorrhagic anemia; T83.518A Infection and inflammatory reaction due to other urinary catheter, initial encounter; N13.8 Other obstructive and reflux uropathy; I50.22 Chronic systolic (congestive) heart failure; N39.0 Urinary tract infection, site not specified; I11.0 Hypertensive heart disease with heart failure; I95.9 Hypotension, unspecified; L98.493 Non-pressure chronic ulcer of skin of other sites with necrosis of muscle; I77.810 Thoracic aortic ectasia; I48.0 Paroxysmal atrial fibrillation; I34.0 Nonrheumatic mitral (valve) insufficiency; E78.5 Hyperlipidemia, unspecified; I25.10 Atherosclerotic heart disease of native coronary artery without angina pectoris; N40.1 Benign prostatic hyperplasia with lower urinary tract symptoms; R33.8 Other retention of urine; R73.9 Hyperglycemia, unspecified; I25.2 Old myocardial infarction; M19.90 Unspecified osteoarthritis, unspecified site; Z79.01 Long term (current) use of anticoagulants; Z79.899 Other long term (current) drug therapy; Z95.5 Presence of coronary angioplasty implant and graft; Z95.1 Presence of aortocoronary bypass graft; Z87.891 Personal history of nicotine dependence; Z86.79 Personal history of other diseases of the circulatory system; Z96.651 Presence of right artificial knee joint; Z90.89 Acquired absence of other organs; Z87.19 Personal history of other diseases of the digestive system; Z87.2 Personal history of diseases of the skin and subcutaneous tissue; Z98.42 Cataract extraction status, left eye; Z98.41 Cataract extraction status, right eye; Z98.890 Other specified postprocedural states; Z87.01 Personal history of pneumonia (recurrent); Y83.8 Other surgical procedures as the cause of abnormal reaction of the patient, or of later complication, without mention of misadventure at the time of the procedure; Y84.6 Urinary catheterization as the cause of abnormal reaction of the patient, or of later complication, without mention of misadventure at the time of the procedure; Z88.5 Allergy status to narcotic agent; Z80.9 Family history of malignant neoplasm, unspecified; Z82.49 Family history of ischemic heart disease and other diseases of the circulatory system
CPT/HCPCS: 36573; 71046; 80048; 80053; 80202; 82550; 83735; 85025; 85027; 85610; 85652; 85730; 86140; 87070; 87205

== ENCOUNTER → 2020-05-17 | Outpatient (CLI) | payer MEDICARE ==
[2020-05-17 10:59] VITALS: RESP 16
[2020-05-17 11:25] LABS: Anisocytosis Moderate; Basophils % (A) 0 %; Eosinophils # (A) 1.3 k/uL (0-0.7); Eosinophils % (A) 12 %; HCT 23.5 % (39.0-53.0); Hypochromasia Marked; Lymphocytes # (A) 1.7 k/uL (1.0-4.8); Lymphocytes % (A) 16 %; MCH 30.9 pg (25.0-35.0); MCHC 29.9 g/dL (31.0-37.0); MCV 103.6 fL (80.0-100.0); Macrocytosis Marked; Mean Platelet Volume 8.5; Monocytes # (A) 0.7 k/uL (0-1.0); Monocytes % (A) 7 %; Neutrophils # (A) 6.7 k/uL (1.3-7.7); Neutrophils % (A) 63 %; Platelet Count 443 k/uL (150-450); RBC 2.27 m/uL (4.30-5.90); RDW 20.7 % (11.5-15.5); WBC 10.7 k/uL (3.8-10.6)
[2020-05-17 11:57] LABS: ALT 38 U/L (4-49); AST 27 U/L (17-59); African American GFR (CKD) 42 (>60 ml/min/1.73 sqM); Albumin 2.8 g/dL (3.5-5.0); Alkaline Phosphatase 69 U/L (38-126); Anion Gap 5 mmol/L; Blood Urea Nitrogen 66 mg/dL (9-20); C Reactive Protein 28.3 mg/L (<10.0); Calcium 8.3 mg/dL (8.4-10.2); Carbon Dioxide 32 mmol/L (22-30); Chloride 95 mmol/L (98-107); Creatine Kinase <20 U/L (55-170); Glucose 91 mg/dL (74-99); Non-African American GFR(CKD) 37 (>60 ml/min/1.73 sqM); Potassium 4.2 mmol/L (3.5-5.1); Sodium 132 mmol/L (137-145); Total Bilirubin 0.5 mg/dL (0.2-1.3); Total Protein 5.5 g/dL (6.3-8.2)
[2020-05-17 13:56] LABS: Mixed Population RBC Present; Target Cells Present
[2020-05-17 13:58] LABS: Poikilocytosis (M) Present
[2020-05-17 14:51] LABS: Erythrocyte Sedimentation Rate 83 mm/hr (0-15)
== END | disposition home or self-care (01) ==
LOC: PROCWHC3 10:42
PROVIDERS: ATTEND Thoracic Surgery (Cardiothoracic Vascular Surgery)
DX: T81.49XA Infection following a procedure, other surgical site, initial encounter (principal)
CPT/HCPCS: 36591; 80053; 82550; 85025; 85652; 86140

== ENCOUNTER 2020-06-04 06:04 | Inpatient (IN) | payer MEDICARE, OTHER ==
[2020-06-04] MEDS ORDERED: IPRATROPIUM-ALBUTEROL 3 ML NEB INHALATION STA (06:33)
[2020-06-04] MEDS ORDERED: MECLIZINE 12.5 MG TAB PO STA (06:37)
--- NOTE | 2020-06-04 06:37 | ED ---
General Adult HPI - General Chief complaint: Shortness of Breath Stated complaint: SOB Time Seen by Provider: 06/04/20 06:05 Source: patient, RN notes reviewed Mode of arrival: ambulatory Limitations: no limitations - History of Present Illness Initial comments: This a 79-year-old male presents emergency Department chief complaint of shortness of breath. Patient states started yesterday worsen over the next him. Patient states he has no history of COPD or asthma. Patient states that he's had some slight lower leg swelling. Patient had cardiac bypass 04/14/[address] Olivo. Patient states that he had some wound dehiscence possible infection in which she had a wound VAC placed on his anterior chest. Patient states symptoms have been improving. He has not noticed any fevers or chills. Denies any abdominal pain. Patient's had no productive cough, headache. Patient states she does feel dizzy at this time. - Related Data Previous Rx's Medication Instructions Recorded Acetaminophen Tab [Tylenol] 1,000 mg PO Q6HR PRN tab 04/19/20 Ascorbic Acid [Vitamin C] 500 mg PO BID-W/MEALS tab 04/19/20 Ferrous Sulfate [Iron (65 MG 325 mg PO BID-W/MEALS tab 04/19/20 Elemental)] Multivitamins, Thera [Multivitamin 1 each PO DAILY tab 04/19/20 (formulary)] Pantoprazole [Protonix] 40 mg PO AC-BRKFST tablet. 04/19/20 Sennosides-Docusate Sodium 2 each PO HS tab 04/19/20 [Senokot-S] Cefepime [Maxipime] 2 gm IVPB Q12H #14 bag 05/10/20 DAPTOmycin [Cubicin] 500 mg IV DAILY #28 bag 05/10/20 Amiodarone [Cordarone] 200 mg PO DAILY #2 tab 05/12/20 Aspirin 325 mg PO DAILY tab 05/12/20 Atorvastatin [Lipitor] 40 mg PO HS #30 tablet 05/12/20 Benzonatate [Tessalon Perles] 100 mg PO TID PRN #30 cap 05/12/20 Finasteride [Proscar] 5 mg PO DAILY #30 tab 05/12/20 Furosemide [Lasix] 40 mg PO BID #60 tablet 05/12/20 Metoprolol Tartrate [Lopressor] 12.5 mg PO BID #60 tab 05/12/20 Midodrine [ProAmatine] 10 mg PO AC-BID #90 tab 05/12/20 Nitroglycerin Sl Tabs [Nitrostat] 0.4 mg SUBLINGUAL Q5M PRN #25 tab 05/12/20 Tamsulosin [Flomax] 0.4 mg PO BID #60 cap.er.24h 05/12/20 metOLazone [Zaroxolyn] 5 mg PO DAILY #30 tab 05/12/20 Allergies Allergy/AdvReac Type Severity Reaction Status Date / Time codeine Allergy Headache/brain Verified 06/04/20 06:09 swelling Review of Systems ROS Statement: Those systems with pertinent positive or pertinent negative responses have been documented in the HPI. ROS Other: All systems not noted in ROS Statement are negative. Past Medical History Past Medical History: Coronary Artery Disease (CAD), Hyperlipidemia, Hypertension, Myocardial Infarction ([place]), Osteoarthritis (OA) Additional Past Medical History / Comment(s): Sepsis secondary to Serratia UTI and the patient was bacteremic Last Myocardial Infarction Date:: 2001 History of Any Multi-Drug Resistant Organisms: None Reported Past Surgical History: Coronary Bypass/CABG, Heart Catheterization With Stent, Hernia Repair, Joint Replacement, Tonsillectomy Additional Past Surgical History / Comment(s): Precancerous skin lesion removed, right knee replacement, cyst removed, bilateral cataracts removed. Bare-metal stent placed to the RCA in February 2002; 4 vessel CABG 04/13/2020 Past Anesthesia/Blood Transfusion Reactions: No Reported Reaction Date of Last Stent Placement:: 2001 Past Psychological History: No Psychological Hx Reported Smoking Status: Former smoker Past Alcohol Use History: None Reported Past Drug Use History: None Reported - Past Family History Father Family Medical History: Cancer Mother Family Medical History: Cancer, Coronary Artery Disease (CAD) General Exam Limitations: no limitations General appearance: alert, in no apparent distress Head exam: Present: atraumatic, normocephalic, normal inspection Eye exam: Present: normal appearance, PERRL, EOMI. Absent: scleral icterus, conjunctival injection, periorbital swelling ENT exam: Present: normal exam, normal oropharynx, mucous membranes moist, TM's normal bilaterally Neck exam: Present: normal inspection, full ROM. Absent: tenderness, meningismus, lymphadenopathy Respiratory exam: Present: decreased breath sounds, other (Wound VAC over mid to lower sternum region). Absent: normal lung sounds bilaterally, respiratory distress, wheezes, rales, rhonchi, stridor Cardiovascular Exam: Present: regular rate, normal rhythm, systolic murmur. Absent: normal heart sounds, diastolic murmur, rubs, gallop, clicks GI/Abdominal exam: Present: soft, normal bowel sounds. Absent: distended, tenderness, guarding, rebound, rigid exam: Present: other (Grimm catheter in place) Neurological exam: Present: alert, oriented X3 Skin exam: Present: warm, dry, intact, normal color. Absent: rash Course Vital Signs 06/04/20 06/04/20 06/04/20 06:08 06:23 07:00 Temperature 98.9 F Pulse Rate 86 78 Respiratory 20 22 22 Rate Blood Pressure 118/72 85/54 O2 Sat by Pulse 87 L 98 Oximetry 06/04/20 06/04/20 06/04/20 07:04 07:12 07:30 Temperature Pulse Rate 77 78 79 Respiratory 17 Rate Blood Pressure 102/50 O2 Sat by Pulse 96 Oximetry EKG Findings - EKG Comments: EKG Findings:: EKG ordered 6:19 normal sinus rhythm rate of 83 NV 182 QRS 16 QTC is QTC 42/472 Medical Decision Making - Medical Decision Making 79-year-old presented for shortness of breath. Patient's x-ray shows diffuse interstitial infiltrates. Trace pleural effusion. Patient's BMP is minimally elevated. Patient is 2 months status post CABG. Patient will be admitted for IV antibiotics, and evaluation by cardiothoracic and pulmonary - Lab Data Result diagrams: 06/04/20 06:36 06/04/20 06:36 Lab Results 06/04/20 06/04/20 06/04/20 Range/Units 06:36 06:36 06:36 WBC 10.6 (3.8-10.6) k/uL RBC 2.17 L (4.30-5.90) m/uL Hgb 7.1 L (13.0-17.5) gm/dL Hct 22.4 L (39.0-53.0) % MCV 103.5 H (80.0-100.0) fL MCH 32.7 (25.0-35.0) pg MCHC 31.5 (31.0-37.0) g/dL RDW 19.6 H (11.5-15.5) % Plt Count 455 H (150-450) k/uL Neutrophils % 67 % Lymphocytes % 16 % Monocytes % 4 % Eosinophils % 12 % Basophils % 0 % Neutrophils # 7.1 (1.3-7.7) k/uL Lymphocytes # 1.7 (1.0-4.8) k/uL Monocytes # 0.4 (0-1.0) k/uL Eosinophils # 1.2 H (0-0.7) k/uL Basophils # 0.0 (0-0.2) k/uL Manual Slide Review Performed Hypochromasia Marked Anisocytosis Slight Macrocytosis Marked A Target Cells Present PT 10.7 (9.0-12.0) sec INR 1.0 (<1.2) APTT 28.6 (22.0-30.0) sec Sodium 130 L (137-145) mmol/L Potassium 4.0 (3.5-5.1) mmol/L Chloride 95 L (98-107) mmol/L Carbon Dioxide 30 (22-30) mmol/L Anion Gap 5 mmol/L BUN 42 H (9-20) mg/dL Creatinine 1.21 (0.66-1.25) mg/dL Est GFR (CKD-EPI)AfAm 66 (>60 ml/min/1.73 sqM) Est GFR (CKD-EPI)NonAf 57 (>60 ml/min/1.73 sqM) Glucose 115 H (74-99) mg/dL Plasma Lactic Acid Aly (0.7-2.0) mmol/L Calcium 8.0 L (8.4-10.2) mg/dL Magnesium 2.3 (1.6-2.3) mg/dL Total Bilirubin 0.9 (0.2-1.3) mg/dL AST 26 (17-59) U/L ALT 34 (4-49) U/L Alkaline Phosphatase 57 (38-126) U/L Troponin I (0.000-0.034) ng/mL NT-Pro-B Natriuret Pep pg/mL Total Protein 5.6 L (6.3-8.2) g/dL Albumin 2.8 L (3.5-5.0) g/dL 06/04/20 06/04/20 06/04/20 Range/Units 06:36 06:36 06:36 WBC (3.8-10.6) k/uL RBC (4.30-5.90) m/uL Hgb (13.0-17.5) gm/dL Hct (39.0-53.0) % MCV (80.0-100.0) fL MCH (25.0-35.0) pg MCHC (31.0-37.0) g/dL RDW (11.5-15.5) % Plt Count (150-450) k/uL Neutrophils % % Lymphocytes % % Monocytes % % Eosinophils % % Basophils % % Neutrophils # (1.3-7.7) k/uL Lymphocytes # (1.0-4.8) k/uL Monocytes # (0-1.0) k/uL Eosinophils # (0-0.7) k/uL Basophils # (0-0.2) k/uL Manual Slide Review Hypochromasia Anisocytosis Macrocytosis Target Cells PT (9.0-12.0) sec INR (<1.2) APTT (22.0-30.0) sec Sodium (137-145) mmol/L Potassium (3.5-5.1) mmol/L Chloride (98-107) mmol/L Carbon Dioxide (22-30) mmol/L Anion Gap mmol/L BUN (9-20) mg/dL Creatinine (0.66-1.25) mg/dL Est GFR (CKD-EPI)AfAm (>60 ml/min/1.73 sqM) Est GFR (CKD-EPI)NonAf (>60 ml/min/1.73 sqM) Glucose (74-99) mg/dL Plasma Lactic Acid Aly 1.3 (0.7-2.0) mmol/L Calcium (8.4-10.2) mg/dL Magnesium (1.6-2.3) mg/dL Total Bilirubin (0.2-1.3) mg/dL AST (17-59) U/L ALT (4-49) U/L Alkaline Phosphatase (38-126) U/L Troponin I <0.012 (0.000-0.034) ng/mL NT-Pro-B Natriuret Pep 2560 pg/mL Total Protein (6.3-8.2) g/dL Albumin (3.5-5.0) g/dL Disposition Clinical Impression: Pneumonia, Dyspnea, Status post coronary artery bypass graft Disposition: ADMITTED IP TO THIS HOSP Condition: Poor Referrals: None,Stated [REFERRING] - 1-2 days
[2020-06-04 06:51] LABS: Anisocytosis Slight; Basophils % (A) 0 %; Eosinophils # (A) 1.2 k/uL (0-0.7); Eosinophils % (A) 12 %; HCT 22.4 % (39.0-53.0); HGB 7.1 gm/dL (13.0-17.5); Hypochromasia Marked; Lymphocytes # (A) 1.7 k/uL (1.0-4.8); Lymphocytes % (A) 16 %; MCH 32.7 pg (25.0-35.0); MCHC 31.5 g/dL (31.0-37.0); MCV 103.5 fL (80.0-100.0); Macrocytosis Marked; Mean Platelet Volume 8.3; Monocytes # (A) 0.4 k/uL (0-1.0); Monocytes % (A) 4 %; Neutrophils # (A) 7.1 k/uL (1.3-7.7); Neutrophils % (A) 67 %; Platelet Count 455 k/uL (150-450); RBC 2.17 m/uL (4.30-5.90); RDW 19.6 % (11.5-15.5); WBC 10.6 k/uL (3.8-10.6)
[2020-06-04 06:53] LABS: Partial Thromboplastin Time 28.6 sec (22.0-30.0); Prothrombin Time 10.7 sec (9.0-12.0)
[2020-06-04 06:55] LABS: Albumin 2.8 g/dL (3.5-5.0); Magnesium 2.3 mg/dL (1.6-2.3); Total Bilirubin 0.9 mg/dL (0.2-1.3); Total Protein 5.6 g/dL (6.3-8.2)
--- NOTE | 2020-06-04 07:00 | XR ---
EXAMINATION TYPE: XR chest 2V DATE OF EXAM: 06/04/2020 COMPARISON: 05/09/2020 HISTORY: Difficulty breathing TECHNIQUE: 2 views FINDINGS: There is coarse pulmonary interstitial infiltrates. There are sternal wires. There is some blunting of the costophrenic angles. Heart appears enlarged. Thoracic aorta is atheromatous. IMPRESSION: Interstitial pulmonary infiltrates with small pleural effusions. 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 No definite heart failure. The pulmonary vascularity however is increased compared to l ast exam. There are some new infiltrates in the lateral right lung field compared to old exam.
[2020-06-04 07:10] LABS: Target Cells Present
[2020-06-04] MEDS ORDERED: AZITHROMYCIN 500 MG in SODIUM CHLORIDE 0.9% 250 ML IVPB STA (08:24)
[2020-06-04] MEDS ORDERED: IPRATROPIUM-ALBUTEROL 3 ML NEB INHALATION PRN (08:28)
[2020-06-04] MEDS ORDERED: PNEUMONIA PROTOCOL UTILIZED 1 EACH MISC PO PRN (08:28)
[2020-06-04] MEDS ORDERED: VANCOMYCIN IV PER PHARMACY 1 EACH MISC MISCELLANE PRN ×2 (08:43→14:59)
[2020-06-04] MEDS ORDERED: VANCOMYCIN 1,500 MG in SODIUM CHLORIDE 0.9% 250 ML IVPB ONE (09:15)
[2020-06-04] MEDS ORDERED: NITROGLYCERIN SL TABS 0.4 MG TAB SUBLINGUAL PRN (14:36)
[2020-06-04] MEDS ORDERED: ACETAMINOPHEN TAB 500 MG TAB PO PRN (14:36)
[2020-06-04] MEDS ORDERED: VANCOMYCIN 1,250 MG in SODIUM CHLORIDE 0.9% 250 ML IVPB SCH (15:00)
[2020-06-04] MEDS ORDERED: ONDANSETRON 4 MG/2 ML VIAL IVP PRN (15:04)
--- NOTE | 2020-06-04 15:26 | P.HPIM ---
History of Present Illness H&P Date: 06/04/20 79-year-old male patient of Dr. guallpa with long-standing history of CAD post TX with history of PCI and stent placement of the right coronary artery disease over 10 years ago who is known to have history of hypertension hyperlipidemia and previous history of tobacco dependency patient has been doing natural management for many years started noticing significant shortness of breath and decrease endurance when attempted to walk and ambulate was seen Dr. FRANK patel and end up going for stress test showed moderate area of infarct ischemic change patient ended up going for heart cath on 03/09/2020 finding was consistent with 80 percentile blockage of the LAD, 70% blockage in the mid LAD, 90% blockage of the circumflex and 95% blockage of the RCA, underwent 4 vessel bypass surgery on 2019 and was sent to the ICU on mechanical ventilation. Postoperatively experienced atrial fibrillation/atrial flutter , also underwent synchronized cardioversion with return to normal sinus rhythm. Patient also received 1 unit of packed RBC while at [facility] for acute blood loss anemia. He was also found to have urinary retention for which he was placed on Soria catheter and was sent to inpatient rehab at [facility]. Patient was given iron infusion at [facility] and 2 attempts were made to remove Soria catheter without any success. Patient is started on Flomax and proscar to help with urine retention. Patient was noted to be short of breath at inpatient rehab on 04/25 sec t o lef t pleural effusion, developed worsening shortness of breath requiring brief stay at ICU. Chest CT was obtained that showed an congestive heart failure with mild infiltrate with failed attempt at thoracentesis with minimal output. The echo suggested an EF of 50% Urine and blood culture was was positive for Serratia and patient was placed on cefepime by Dr. Hightower. On 05/06 was transferred back to [facility] for superficial sternal incision infection positive for staph epi. Patient completed 4 weeks of IV daptomycin and follows up with wound care under Dr. Hightower as outpatient. Patient wears wound VAC gets changed every Friday and Friday and in the wound Center every Friday. Si nce patient continued to have urinary retention with failed attempts to remove it patient was discharged on Soria catheter with outpatient follow-up with urology. Patient has upcoming appointment on 06/06 for possible urodynamic studies. He was doing well until a few days ago when he was unable to walk to his car without getting shortness of breath. Patient has seen his head housekeeper Dr. Knowles and Dr. Little areas bowel outpatient within the last 1 week and was told he is doing well. Some of his medications were adjusted as outpatient. Patient endorses cough with mild phlegm production. He denies any chest pain or increased drainage from the wound. He follows every week at Wound Center and has been told his sternal incision is healing well. Patient denies any change in bowel movements or blood in the stools. He denies any nausea or vomiting. On evaluation in the ER patient was found to have a temp of 97.8 pulse 85 respiratory rate 16 blood pressure 109/58 oxygen saturation 91% on 2 L of oxygen. Patient does not wear oxygen at home. On evaluation of his last patient continues to have a low hemoglobin 7.1, MCV 103.5 platelet 455 ESR has worsened since the beginning of May to 102, CRP increased from 25-139. ProBNP is 2560. Albumin is 2.8 pro-calcitonin ordered. Legionella antigen ordered. Mycoplasma IgM ordered COVID 19 pending. Continue broad-spectrum antibiotic with vancomycin and cefepime. Infectious disease consult placed. Cardiothoracic surgery consulted. Lasix initiated at 40 IV twice a day continue metolazone and 5 mg by mouth daily. Review of Systems Constitutional: Denies chills, Denies fever, endorses lethargy, Denies poor appetite, endorses weakness, Denies weight loss Eyes: denies decreased vision, denies diplopia, denies discharge, denies pain Ears: deny: decreased hearing Ears, nose, mouth and throat: Denies dental pain, Denies headache, Denies nasal discharge, Denies nose pain Cardiovascular: Denies chest pain, endorses decreased exercise tolerance, Denies edema, Denies high blood pressure, Denies irregular heart beat, Denies palpitations, Denies paroxysmal nocturnal dyspnea, Denies rapid heart beat, endorses shortness of breath Respiratory: Endorses congestion, endorses cough, endorses cough with sputum, endorses dyspnea, Denies home oxygen, Denies wheezing Gastrointestinal: Denies abdominal pain, Denies change in bowel habits, Denies coffee ground emesis, Denies early satiety, Denies excessive gas, Denies heartburn, Denies hematemesis, Denies hematochezia, Denies loss of appetite, Denies nausea, Denies vomiting Genitourinary: Denies dysuria, Denies flank pain, Denies kidney stones, Denies menorrhagia, Denies urgency, Denies urinary frequency Musculoskeletal: Denies gait dysfunction, Denies limitation of motion, Denies morning stiffness, Denies muscle cramps Integumentary: Denies rash, Denies wounds, Denies brittle nails, Denies change in hair/nails, Denies darkening of skin Neurological: Denies balance difficulties, Denies change in speech, Denies double vision, Denies gait dysfunction, Denies loss of vision, Denies motor disturbance, Denies numbness, Denies paralysis, Denies paresthesias, Denies seizures Psychiatric: Denies anxiety, Denies depression Endocrine: Denies excessive sweating, Denies excessive thirst, Denies high blood sugars, Denies palpitations Hematologic/Lymphatic: Denies easy bruising, Denies lymphadenopathy Past Medical History Past Medical History: Coronary Artery Disease (CAD), Hyperlipidemia, Hypertension, Myocardial Infarction ([place]), Osteoarthritis (OA) Additional Past Medical History / Comment(s): Sepsis secondary to Serratia UTI and the patient was bacteremic Last Myocardial Infarction Date:: 2001 History of Any Multi-Drug Resistant Organisms: None Reported Past Surgical History: Coronary Bypass/CABG, Heart Catheterization With Stent, Hernia Repair, Joint Replacement, Tonsillectomy Additional Past Surgical History / Comment(s): Precancerous skin lesion removed, right knee replacement, cyst removed, bilateral cataracts removed. Bare-metal stent placed to the RCA in February 2002; 4 vessel CABG 04/13/2020 Past Anesthesia/Blood Transfusion Reactions: No Reported Reaction Date of Last Stent Placement:: 2001 Past Psychological History: No Psychological Hx Reported Smoking Status: Former smoker Past Alcohol Use History: None Reported Past Drug Use History: None Reported - Past Family History Father Family Medical History: Cancer Mother Family Medical History: Cancer, Coronary Artery Disease (CAD) Medications and Allergies Home Medications Medication Instructions Recorded Confirmed Type Acetaminophen Tab [Tylenol] 1,000 mg PO Q6HR PRN tab 04/19/20 06/04/20 Rx Ascorbic Acid [Vitamin C] 500 mg PO BID-W/MEALS tab 04/19/20 06/04/20 Rx Ferrous Sulfate [Iron (65 MG 325 mg PO BID-W/MEALS tab 04/19/20 06/04/20 Rx Elemental)] Multivitamins, Thera [Multivitamin 1 each PO DAILY tab 04/19/20 06/04/20 Rx (formulary)] Pantoprazole [Protonix] 40 mg PO AC-BRKFST tablet. 04/19/20 06/04/20 Rx Sennosides-Docusate Sodium 2 each PO HS tab 04/19/20 06/04/20 Rx [Senokot-S] Amiodarone [Cordarone] 200 mg PO DAILY #2 tab 05/12/20 06/04/20 Rx Aspirin 325 mg PO DAILY tab 05/12/20 06/04/20 Rx Atorvastatin [Lipitor] 40 mg PO HS #30 tablet 05/12/20 06/04/20 Rx Finasteride [Proscar] 5 mg PO DAILY #30 tab 05/12/20 06/04/20 Rx Metoprolol Tartrate [Lopressor] 12.5 mg PO BID #60 tab 05/12/20 06/04/20 Rx Nitroglycerin Sl Tabs [Nitrostat] 0.4 mg SUBLINGUAL Q5M PRN #25 tab 05/12/20 06/04/20 Rx Tamsulosin [Flomax] 0.4 mg PO BID #60 cap.er.24h 05/12/20 06/04/20 Rx metOLazone [Zaroxolyn] 5 mg PO DAILY #30 tab 05/12/20 06/04/20 Rx Furosemide [Lasix] 20 mg PO DAILY 06/04/20 06/04/20 History Midodrine HCl [ProAmatine] 10 mg PO TID 06/04/20 06/04/20 History Allergies Allergy/AdvReac Type Severity Reaction Status Date / Time codeine Allergy Headache/brain Verified 06/04/20 12:53 swelling Physical Exam Vitals: Vital Signs Temp Pulse Pulse Resp BP BP Pulse Ox 06/04/20 13:15 97.8 F 85 16 109/58 91 L 06/04/20 13:00 73 20 104/64 98 06/04/20 12:30 77 20 106/58 99 06/04/20 12:00 77 24 102/55 95 06/04/20 11:30 76 17 91/56 98 06/04/20 11:00 84 64 H 99/63 96 06/04/20 10:30 75 17 97/51 98 06/04/20 10:00 80 35 H 104/56 96 06/04/20 09:30 81 18 104/67 98 06/04/20 09:14 84 16 104/67 95 06/04/20 09:00 85 21 109/55 94 L 06/04/20 08:30 80 13 98/53 95 06/04/20 08:00 79 16 102/52 96 06/04/20 07:30 79 17 102/50 96 06/04/20 07:12 78 06/04/20 07:04 77 06/04/20 07:00 78 22 85/54 98 06/04/20 06:23 22 06/04/20 06:08 98.9 F 86 20 118/72 87 L Intake and Output 06/03/20 06/04/20 06/04/20 22:59 06:59 14:59 Other: Weight 74.843 kg - Constitutional General appearance: cooperative, no acute distress - EENT Eyes: anicteric sclerae, pupil equal and round , normal appearance ENT: hearing grossly normal - Neck Neck: no lymphadenopathy, normal ROM, JVP absent - Respiratory Respiratory: bilateral: crackles with dimiinished air entry at bases - Cardiovascular Rhythm: regular Heart sounds: normal: S1, S2 Abnormal Heart Sounds: no systolic murmur, no diastolic murmur - Gastrointestinal General gastrointestinal: normal bowel sounds, soft, non tender, soria catheter - Integumentary Integumentary: no rash, sternal wound packed with dry dressing - Neurologic Neurologic: No gross motor or sensory deficit located no abnormality - Musculoskeletal Musculoskeletal: gait normal, strength equal bilaterally - Psychiatric Psychiatric: A&O x's 3, appropriate affect Results CBC & Chem 7: 06/04/20 06:36 06/04/20 06:36 Labs: Abnormal Lab Results - Last 24 Hours (Table) 06/04/20 06/04/20 06/04/20 Range/Units 06:36 06:36 11:23 RBC 2.17 L (4.30-5.90) m/uL Hgb 7.1 L (13.0-17.5) gm/dL Hct 22.4 L (39.0-53.0) % MCV 103.5 H (80.0-100.0) fL RDW 19.6 H (11.5-15.5) % Plt Count 455 H (150-450) k/uL Eosinophils # 1.2 H (0-0.7) k/uL Macrocytosis Marked A ESR 102 H (0-15) mm/hr Sodium 130 L (137-145) mmol/L Chloride 95 L (98-107) mmol/L BUN 42 H (9-20) mg/dL Glucose 115 H (74-99) mg/dL Calcium 8.0 L (8.4-10.2) mg/dL C-Reactive Protein (<10.0) mg/L Total Protein 5.6 L (6.3-8.2) g/dL Albumin 2.8 L (3.5-5.0) g/dL 06/04/20 Range/Units 11:23 RBC (4.30-5.90) m/uL Hgb (13.0-17.5) gm/dL Hct (39.0-53.0) % MCV (80.0-100.0) fL RDW (11.5-15.5) % Plt Count (150-450) k/uL Eosinophils # (0-0.7) k/uL Macrocytosis ESR (0-15) mm/hr Sodium (137-145) mmol/L Chloride (98-107) mmol/L BUN (9-20) mg/dL Glucose (74-99) mg/dL Calcium (8.4-10.2) mg/dL C-Reactive Protein 139.4 H (<10.0) mg/L Total Protein (6.3-8.2) g/dL Albumin (3.5-5.0) g/dL Thrombosis Risk Factor Assmnt - DVT/VTE Prophylaxis DVT/VTE Prophylaxis: Pharmacologic Prophylaxis ordered Assessment and Plan Plan: 1 acute hypoxic respiratory failure a candidate to acute diastolic congestive heart failure with possible healthcare associated pneumonia. Pro-calcitonin ordered continue DuoNeb as needed for shortness of breath. Sputum culture. Lasix 40 IV twice a day. ProBNP high. Cardiothoracic surgery consulted. Will switch antibiotic to cefepime and vancomycin for broader coverage. Infectious disease consulted. 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 mucinex 600 q12 . I and O monitoring, daily weight 2 Post surgical superficial sternal infection status post I and D, wears wound vac, changed every fri, fri and friday. Wound culture was staph epi at [facility], no growth at [facility] . completed daptomycin as outpatient 3. CAUTI bacteremia secondary to Serratia. Completed cefepime as outpatient. Continues to have Soria catheter for urinary retention 4. H/o triple vessel coronary disease s/p remote inferior wall TX with RCA stent, post 4 vessel coronary artery bypass grafting with KEANE to the LAD, left radial arterial graft to the OM, SVG to the PDA, SVG to the diagonal with left radial artery harvest along with left lower extremity endoscopy Vein harvest on 04/13. On aspirin 325 mg, Lipitor 40 mg by mouth daily 5. Postop atrial flutter/ atrial fibrillation status post clip ligation of the left atrial appendage and cardioversion. Oral amiodarone was tapered off but it appears to be on patient's list. We will confirm with pharmacy on Lopressor. Patient is not on eliquis , which was discontinued during last was 6. 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 on Flomax and Finasteride 5 mg by mouth daily. Follows up with urology as outpatient 7. Acute on chronic anemia with bone marrow suppression status post multiple transfusions during last visit and iron infusion at [facility]. Continue daily CBC. Transfuse if hemoglobin less than 7. Continue iron supplementation daily patient needs to see an oncologist for assessment of anemia. Oncology consult placed 8. Systolic congestive heart failure with ejection fraction 50% with [id number] left ventricular dysfunction. Last echo obtained on 05/03 9. Hypertension. Continue Lopressor. 10. Hyperlipidemia: atorvastatin 40 mg daily resume medication. 11. History of osteoarthritis post right total knee arthroplasty. 12. Hyperglycemia. NovoLog scale. 13. DVT prophylaxis: heparin q 12 14. GI prophylaxis: Pantoprazole 40 by mouth with breakfast CODE STATUS: Full code.
[2020-06-04] MEDS: IPRATROPIUM-ALBUTEROL 3 ML NEB INHALATION PRN ×2 (15:39→20:05)
[2020-06-04] MEDS: MIDODRINE 5 MG TAB PO SCH (17:07)
[2020-06-04] MEDS: FERROUS SULFATE 325 MG TAB PO SCH (17:07)
[2020-06-04] MEDS: ASCORBIC ACID 500 MG TAB PO SCH (17:07)
--- NOTE | 2020-06-04 19:28 | CT ---
EXAMINATION TYPE: CT chest wo con DATE OF EXAM: 06/04/2020 COMPARISON: 05/02/2020 HISTORY: Worsening infilterate with underlying fibrosis. CT DLP: 437.4 mGycm Automated exposure control for dose reduction was used. Images were obtained from the thoracic inlet to the diaphragm without contrast. There are bilateral pleural effusions and larger on the right side. There is extensive peripheral rubi ateral pulmonary airspace infiltrates. These measure up to 4 cm. Thoracic aorta is atheromatous. Asce nding aorta measures 4.6 cm. Heart is enlarged. There are no hilar masses. There is spurring in the t horacic spine. There are sternal wires. IMPRESSION: Moderate bilateral pleural effusions are improved compared to old exam. Moderate cardiomegaly. There are new bilateral extensive peripheral pulmonary airspace infiltrates consistent with inflammatory di sease.
[2020-06-04] MEDS: FUROSEMIDE 10 MG/ML 4 ML VIAL IV SCH (20:43)
[2020-06-04] MEDS: CEFEPIME 2 GM in SODIUM CHLORIDE 0.9% 100 ML IVPB SCH (20:43)
[2020-06-04] MEDS: HEPARIN SODIUM,PORCINE 5,000 UNIT/ML 1 ML VIAL SQ SCH (20:43)
[2020-06-04] MEDS: METOPROLOL TARTRATE 12.5 MG TAB PO SCH (20:43)
[2020-06-04] MEDS: ATORVASTATIN 40 MG TAB PO SCH (20:43)
[2020-06-04] MEDS: SENNOSIDES-DOCUSATE SODIUM 1 EACH TAB PO SCH (20:43)
[2020-06-04] MEDS: guaiFENesin 600 MG TABLET.ER PO SCH (20:44)
[2020-06-04] MEDS: ACETAMINOPHEN TAB 325 MG TAB PO PRN (20:56)
[2020-06-04] MEDS ORDERED: TAMSULOSIN 0.4 MG CAP.ER.24H PO SCH (21:00)
--- NOTE | 2020-06-04 22:39 | P.CONS ---
History of Present Illness - Reason for Consult Consult date: 06/04/20 Sternal wound infection Requesting physician: Joaquín Mcdowell - Chief Complaint Shortness of breath x one day - History of Present Illness Patient is a 79 year old male with a past medical history significant for coronary disease in this patient who is status post coronary bypass grafting on 04/13/2020, subsequent the patient was admitted at [facility] inpatient rehab while at that facility the patient did have an episode of sepsis secondary to urinary tract infection and did have evidence of sedation marcescens bacteremia, subsequent the patient was noticed to have sternal cellulitis and abscess that was drained and those culture were positive for staph epidermidis with her vancomycin MAYRA of 2 patient after stabilization was discharged home on a four-week course of daptomycin with the patient is currently receiving at home and in the course of therapy with the patient has completed, patient has been following at [facility] care [facility] and he has to make an appointment in the outpatient setting with me patient is now presenting to the [facility] here this morning which she complains of increasing shortness of breath that had been progressing getting worse since yesterday patient to denies having any chest pain he did have a minimal cough but no sputum no nausea no vomiting and no abdominal pain or any diarrhea with these symptoms the patient was evaluated by the physician on arrival to the ER the patient is afebrile and he did have a normal white count, patient did have a chest x-ray we did shows interstitial pulmonary infiltrate with small pleural effusion probably pulmonary fibrosis and no definite heart failure patient has been admitted to the hospital he was started on cefepime and vancomycin infection disease was consulted for further management of antibiotic therapy Review of Systems Positive point has been mentioned in the HPI rest of the systems are negative Past Medical History Past Medical History: Coronary Artery Disease (CAD), Hyperlipidemia, Hypertension, Myocardial Infarction ([place]), Osteoarthritis (OA) Additional Past Medical History / Comment(s): Sepsis secondary to Serratia UTI and the patient was bacteremic Last Myocardial Infarction Date:: 2001 History of Any Multi-Drug Resistant Organisms: None Reported Past Surgical History: Coronary Bypass/CABG, Heart Catheterization With Stent, Hernia Repair, Joint Replacement, Tonsillectomy Additional Past Surgical History / Comment(s): Precancerous skin lesion removed, right knee replacement, cyst removed, bilateral cataracts removed. Bare-metal stent placed to the RCA in February 2002; 4 vessel CABG 04/13/2020 Past Anesthesia/Blood Transfusion Reactions: No Reported Reaction Date of Last Stent Placement:: 2001 Past Psychological History: No Psychological Hx Reported Smoking Status: Former smoker Past Alcohol Use History: None Reported Past Drug Use History: None Reported - Past Family History Father Family Medical History: Cancer Mother Family Medical History: Cancer, Coronary Artery Disease (CAD) Medications and Allergies Home Medications Medication Instructions Recorded Confirmed Type Acetaminophen Tab [Tylenol] 1,000 mg PO Q6HR PRN tab 04/19/20 06/04/20 Rx Ascorbic Acid [Vitamin C] 500 mg PO BID-W/MEALS tab 04/19/20 06/04/20 Rx Ferrous Sulfate [Iron (65 MG 325 mg PO BID-W/MEALS tab 04/19/20 06/04/20 Rx Elemental)] Multivitamins, Thera [Multivitamin 1 each PO DAILY tab 04/19/20 06/04/20 Rx (formulary)] Pantoprazole [Protonix] 40 mg PO AC-BRKFST tablet.dr 04/19/20 06/04/20 Rx Sennosides-Docusate Sodium 2 each PO HS tab 04/19/20 06/04/20 Rx [Senokot-S] Amiodarone [Cordarone] 200 mg PO DAILY #2 tab 05/12/20 06/04/20 Rx Aspirin 325 mg PO DAILY tab 05/12/20 06/04/20 Rx Atorvastatin [Lipitor] 40 mg PO HS #30 tablet 05/12/20 06/04/20 Rx Finasteride [Proscar] 5 mg PO DAILY #30 tab 05/12/20 06/04/20 Rx Metoprolol Tartrate [Lopressor] 12.5 mg PO BID #60 tab 05/12/20 06/04/20 Rx Nitroglycerin Sl Tabs [Nitrostat] 0.4 mg SUBLINGUAL Q5M PRN #25 tab 05/12/20 06/04/20 Rx Tamsulosin [Flomax] 0.4 mg PO BID #60 cap.er.24h 05/12/20 06/04/20 Rx metOLazone [Zaroxolyn] 5 mg PO DAILY #30 tab 05/12/20 06/04/20 Rx Furosemide [Lasix] 20 mg PO DAILY 06/04/20 06/04/20 History Midodrine HCl [ProAmatine] 10 mg PO TID 06/04/20 06/04/20 History Allergies Allergy/AdvReac Type Severity Reaction Status Date / Time codeine Allergy Headache/brain Verified 06/04/20 12:53 swelling Physical Exam Vitals: Vital Signs Temp Pulse Pulse Resp BP BP Pulse Ox 06/04/20 15:48 86 06/04/20 15:41 84 06/04/20 15:00 98.4 F 83 18 98/49 95 06/04/20 13:15 97.8 F 85 16 109/58 91 L 06/04/20 13:00 73 20 104/64 98 06/04/20 12:30 77 20 106/58 99 06/04/20 12:00 77 24 102/55 95 06/04/20 11:30 76 17 91/56 98 06/04/20 11:00 84 64 H 99/63 96 06/04/20 10:30 75 17 97/51 98 06/04/20 10:00 80 35 H 104/56 96 06/04/20 09:30 81 18 104/67 98 06/04/20 09:14 84 16 104/67 95 06/04/20 09:00 85 21 109/55 94 L 06/04/20 08:30 80 13 98/53 95 06/04/20 08:00 79 16 102/52 96 06/04/20 07:30 79 17 102/50 96 06/04/20 07:12 78 06/04/20 07:04 77 06/04/20 07:00 78 22 85/54 98 06/04/20 06:23 22 06/04/20 06:08 98.9 F 86 20 118/72 87 L Intake and Output 06/04/20 06/04/20 06/04/20 06:59 14:59 22:59 Intake Total 100 Output Total 950 Balance -850 Intake: Oral 100 Output: Urine 950 Other: Voiding Method Indwelling Catheter Weight 74.843 kg 74.843 kg GENERAL DESCRIPTION: An elderly male lying in bed, no distress. No tachypnea or accessory muscle of respiration use. HEENT: Shows Pallor , no scleral icterus. Oral mucous membrane is dry. No pharyngeal erythema or thrush NECK: Trachea central, no thyromegaly. LUNGS: Unlabored breathing. Decreased breath sounds at the base. No wheeze or crackle. HEART: S1, S2, regular rate and rhythm. No loud murmur, sternal wound is currently covered with a wound VAC ABDOMEN: Soft, no tenderness , guarding or rigidity, no organomegaly EXTREMITIES: No edema of feet. SKIN: No rash, no masses palpable. NEUROLOGICAL: The patient is awake, alert, oriented x3, mood and affect normal. Results CBC & Chem 7: 06/04/20 06:36 06/04/20 06:36 Labs: Abnormal Lab Results - Last 24 Hours (Table) 06/04/20 06/04/20 06/04/20 Range/Units 06:36 06:36 11:23 RBC 2.17 L (4.30-5.90) m/uL Hgb 7.1 L (13.0-17.5) gm/dL Hct 22.4 L (39.0-53.0) % MCV 103.5 H (80.0-100.0) fL RDW 19.6 H (11.5-15.5) % Plt Count 455 H (150-450) k/uL Eosinophils # 1.2 H (0-0.7) k/uL Macrocytosis Marked A ESR 102 H (0-15) mm/hr Sodium 130 L (137-145) mmol/L Chloride 95 L (98-107) mmol/L BUN 42 H (9-20) mg/dL Glucose 115 H (74-99) mg/dL Calcium 8.0 L (8.4-10.2) mg/dL C-Reactive Protein (<10.0) mg/L Total Protein 5.6 L (6.3-8.2) g/dL Albumin 2.8 L (3.5-5.0) g/dL 06/04/20 Range/Units 11:23 RBC (4.30-5.90) m/uL Hgb (13.0-17.5) gm/dL Hct (39.0-53.0) % MCV (80.0-100.0) fL RDW (11.5-15.5) % Plt Count (150-450) k/uL Eosinophils # (0-0.7) k/uL Macrocytosis ESR (0-15) mm/hr Sodium (137-145) mmol/L Chloride (98-107) mmol/L BUN (9-20) mg/dL Glucose (74-99) mg/dL Calcium (8.4-10.2) mg/dL C-Reactive Protein 139.4 H (<10.0) mg/L Total Protein (6.3-8.2) g/dL Albumin (3.5-5.0) g/dL Assessment and Plan Assessment: 1- patient is a 79 year male who is status post recent coronary bypass grafting with subsequent sternal wound infection status post debridement culture positive for staph epidermidis in this patient now presented to the hospital with decrease in shortness of breath with evidence of increasing inf iltrate on the chest x-ray possible fluid related clinically not behaving as the pneumonia in this patient with a fever or elevated white count and no significant cough or sputum production (1) Sternal wound infection Current Visit: Yes Status: Acute Code(s): S21.101A - UNSP OPN WND R FRNT WL OF THORAX W/O PENET THOR CAVITY, INIT; L08.9 - LOCAL INFECTION OF THE SKIN AND SUBCUTANEOUS TISSUE, UNSP SNOMED Code(s): 04834757 Plan: 1- patient to continue with vancomycin pharmacy to dose 2-local wound care with wound VAC and the wound will be examined tomorrow, at the time of dressing changes We will follow on clinical condition and cultures to further adjust medication if needed Thank you for this consultation will follow this patient with you Time with Patient: Greater than 30
[2020-06-04] MEDS: VANCOMYCIN 1,500 MG in SODIUM CHLORIDE 0.9% 250 ML IVPB SCH (23:46)
[2020-06-05 07:04] LABS: Anisocytosis Slight; Basophils % (A) 0 %; Eosinophils # (A) 1.1 k/uL (0-0.7); Eosinophils % (A) 14 %; HCT 20.2 % (39.0-53.0); Hypochromasia Marked; Lymphocytes % (A) 13 %; MCH 31.4 pg (25.0-35.0); MCHC 30.5 g/dL (31.0-37.0); MCV 102.9 fL (80.0-100.0); Macrocytosis Moderate; Mean Platelet Volume 7.9; Monocytes # (A) 0.4 k/uL (0-1.0); Monocytes % (A) 5 %; Neutrophils # (A) 5.5 k/uL (1.3-7.7); Neutrophils % (A) 68 %; Platelet Count 394 k/uL (150-450); RBC 1.96 m/uL (4.30-5.90); RDW 19.2 % (11.5-15.5); WBC 8.1 k/uL (3.8-10.6)
[2020-06-05] MEDS: PANTOPRAZOLE 40 MG TABLET PO SCH (07:18)
[2020-06-05] MEDS: ASCORBIC ACID 500 MG TAB PO SCH ×2 (07:18→16:26)
[2020-06-05] MEDS: FERROUS SULFATE 325 MG TAB PO SCH ×2 (07:18→16:26)
[2020-06-05] MEDS: MIDODRINE 5 MG TAB PO SCH ×3 (07:18→16:26)
[2020-06-05 07:28] LABS: HGB 6.1 gm/dL (13.0-17.5)
[2020-06-05] MEDS: ASPIRIN 325 MG TAB PO SCH (08:44)
[2020-06-05] MEDS: FUROSEMIDE 10 MG/ML 4 ML VIAL IV SCH ×2 (08:44→20:35)
[2020-06-05] MEDS: TAMSULOSIN 0.4 MG CAP.ER.24H PO SCH (08:44)
[2020-06-05] MEDS: FINASTERIDE 5 MG TAB PO SCH (08:44)
[2020-06-05] MEDS: CEFEPIME 2 GM in SODIUM CHLORIDE 0.9% 100 ML IVPB SCH ×2 (08:44→20:34)
[2020-06-05] MEDS: HEPARIN SODIUM,PORCINE 5,000 UNIT/ML 1 ML VIAL SQ SCH ×2 (08:45→20:35)
[2020-06-05] MEDS: METOPROLOL TARTRATE 12.5 MG TAB PO SCH ×2 (08:45→20:35)
[2020-06-05] MEDS: guaiFENesin 600 MG TABLET.ER PO SCH ×2 (08:45→20:35)
[2020-06-05] MEDS: POTASSIUM CHLORIDE ER 20 MEQ TAB.ER PO SCH (08:45)
[2020-06-05] MEDS: MULTIVITAMINS, THERA 1 EACH TAB PO SCH (08:45)
--- NOTE | 2020-06-05 08:57 | P.GSCN ---
History of Present Illness Consult date: 06/05/20 Reason for Consult: Known to us from recent CABG Requesting physician: Hernandez Melendez History of present illness: This is a 79-year-old gentleman who follows on an outpatient basis with Dr. Mccurdy. He has a previous medical history of coronary artery disease with recent inferior wall myocardial infarction and RCA stent, status post 4 vessel CABG on 04/13/2020 with postoperative acute blood loss anemia status post transfusion, atrial fibrillation status post clip ligation of left atrial appendage with cardioversion, urinary retention with Grimm catheter placement, superficial sternal incision infection with staph epi, Serratia UTI, left pleural effusion with unsuccessful attempted thoracentesis, mild to moderate left ventricular systolic dysfunction, chronic systolic heart failure with preoperative EF 40-45% followed by EF of 50% on transthoracic echocardiogram May 03, mild mitral valve regurgitation, 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 This gentleman was found to have triple-vessel coronary artery disease and underwent CABG on 04/13/2020. He had a victor hugo postoperative course and was discharged to [facility] for inpatient rehab on postoperative day #6 for physical and occupational therapy. While there he was progressing as expected and was to be discharged home, unfortunately the night before he was to be discharged he de veloped shortness of breath with oxygen desaturation and was felt to be in acute heart failure. He was transferred to the intensive care unit with a fever and leukocytosis which was felt to be urinary in origin and was diagnosed with Serratia UTI. He was placed on IV cefepime per infectious disease. He was given IV Lasix with excellent diuresis. Thoracentesis was attempted but unsuccessful. He was initiated on Midodrine for hypotension as well as receiving blood transfusion. He was noticed to have increased redness and small areas of fluid pockets along his sternal incision with initial superficial culture positive for staph epi and was subsequently brought back to [facility] for cardiothoracic surgery evaluation. At that time the inferior part of his incision was opened by Dr. Olivo, deep wound cultures were taken which were negative. A wound VAC was placed and the patient was discharged to home on IV daptomycin and cefepime per infectious disease with wound VAC to be changed Friday, Friday, and Friday, Wednesdays in the wound care center. He was recovering nicely at home, however over the previous couple days he noticed increased shortness of breath especially with activity. He did endorse a nonproductive cough. Denies any fever. He has remained afebrile. Vital signs remain stable although blood pressures marginal, mean pressures in the 60s. He is oxygenating in the mid 90s on 2 L nasal cannula and does appear comfortable at rest. On admission WBC 10.6, hemoglobin 7.1, BUN 42, creatinine 1.21, lactic acid 1.3, troponin negative, BNP 2560, C-reactive protein 139.4, ESR 102, pro- calcitonin 0.05. Chest x-ray demonstrated interstitial pulmonary infiltrates with small pleural effusions. EKG demonstrated normal sinus rhythm. Chest CT was completed demonstrated moderate bilateral pleural effusions improved from old exam, moderate cardiomegaly, new bilateral extensive peripheral pulmonary airspace infiltrates consistent with inflammatory disease. He was placed on IV vancomycin and cefepime and admitted with consultation placed to Dr. Olivo from cardiothoracic surgery as this patient is known to us, as well as Dr. Chris from infectious disease. Consultations were also placed by primary care to cardiology for atrial fibrillation, urology for continued urinary retention as patient did have appointment set up for invasive studies, and hematology for continued macrocytic anemia. Review of Systems Review of systems was completed and was negative except as noted - Respiratory Reports as per HPI, Reports cough, Reports dyspnea Past Medical History Past Medical History: Atrial Fibrillation, Coronary Artery Disease (CAD), Heart Failure, Hyperlipidemia, Hypertension, Myocardial Infarction ([place]), Osteoarthritis (OA) Additional Past Medical History / Comment(s): Sepsis secondary to Serratia UTI and the patient was bacteremic Last Myocardial Infarction Date:: 2001 History of Any Multi-Drug Resistant Organisms: None Reported Past Surgical History: Coronary Bypass/CABG, Heart Catheterization With Stent, Hernia Repair, Joint Replacement, Tonsillectomy Additional Past Surgical History / Comment(s): Precancerous skin lesion removed, right knee replacement, cyst removed, bilateral cataracts removed. Bare-metal stent placed to the RCA in February 2002; 4 vessel CABG 04/13/2020 Past Anesthesia/Blood Transfusion Reactions: No Reported Reaction Date of Last Stent Placement:: 2001 Past Psychological History: No Psychological Hx Reported Smoking Status: Former smoker Past Alcohol Use History: None Reported Past Drug Use History: None Reported - Past Family History Father Family Medical History: Cancer Mother Family Medical History: Cancer, Coronary Artery Disease (CAD) Medications and Allergies Home Medications Medication Instructions Recorded Confirmed Type Acetaminophen Tab [Tylenol] 1,000 mg PO Q6HR PRN tab 04/19/20 06/04/20 Rx Ascorbic Acid [Vitamin C] 500 mg PO BID-W/MEALS tab 04/19/20 06/04/20 Rx Ferrous Sulfate [Iron (65 MG 325 mg PO BID-W/MEALS tab 04/19/20 06/04/20 Rx Elemental)] Multivitamins, Thera [Multivitamin 1 each PO DAILY tab 04/19/20 06/04/20 Rx (formulary)] Pantoprazole [Protonix] 40 mg PO AC-BRKFST tablet. 04/19/20 06/04/20 Rx Sennosides-Docusate Sodium 2 each PO HS tab 04/19/20 06/04/20 Rx [Senokot-S] Amiodarone [Cordarone] 200 mg PO DAILY #2 tab 05/12/20 06/04/20 Rx Aspirin 325 mg PO DAILY tab 05/12/20 06/04/20 Rx Atorvastatin [Lipitor] 40 mg PO HS #30 tablet 05/12/20 06/04/20 Rx Finasteride [Proscar] 5 mg PO DAILY #30 tab 05/12/20 06/04/20 Rx Metoprolol Tartrate [Lopressor] 12.5 mg PO BID #60 tab 05/12/20 06/04/20 Rx Nitroglycerin Sl Tabs [Nitrostat] 0.4 mg SUBLINGUAL Q5M PRN #25 tab 05/12/20 06/04/20 Rx Tamsulosin [Flomax] 0.4 mg PO BID #60 cap.er.24h 05/12/20 06/04/20 Rx metOLazone [Zaroxolyn] 5 mg PO DAILY #30 tab 05/12/20 06/04/20 Rx Furosemide [Lasix] 20 mg PO DAILY 06/04/20 06/04/20 History Midodrine HCl [ProAmatine] 10 mg PO TID 06/04/20 06/04/20 History Allergies Allergy/AdvReac Type Severity Reaction Status Date / Time codeine Allergy Headache/brain Verified 06/04/20 12:53 swelling Surgical - Exam Vital Signs Temp Pulse Resp BP Pulse Ox 98.9 F 86 20 118/72 87 L 06/04/20 06:08 06/04/20 06:08 06/04/20 06:08 06/04/20 06:08 06/04/20 06:08 - General well developed, well nourished, no distress, no pain - Eyes normal ocular movement - ENT no hearing loss - Respiratory Lungs sounds diminished bilaterally. Respirations even, nonlabored. Currently on 2 L nasal cannula with oxygen saturation 96%. Able to achieve 1000 mL on his incentive spirometry. Strong cough. No clubbing or cyanosis present - Cardiovascular S1, S2 present. Regular rate and rhythm, sinus rhythm on telemetry. Sternum stable. Palpable peripheral pulses bilaterally. No edema present. No calf pain or tenderness noted. - Abdomen Abdomen: soft, non tender, bowel sounds - Genitourinary Grimm present draining clear, yellow urine. - Rectum Deferred - Integumentary Anterior chest incision opened with wound VAC in place no rash, no growths - Neurologic normal coordination, normal sensation - Musculoskeletal normal gait, normal posture - Psychiatric oriented to time, oriented to person, oriented to place, speech is normal, memory intact Results - Labs 06/05/20 06:39 06/05/20 06:39 Abnormal Lab Results - Last 24 Hours (Table) 06/04/20 06/04/20 06/05/20 Range/Units 11:23 11:23 06:39 RBC 1.96 L (4.30-5.90) m/uL Hgb 6.1 L* (13.0-17.5) gm/dL Hct 20.2 L (39.0-53.0) % MCV 102.9 H (80.0-100.0) fL MCHC 30.5 L (31.0-37.0) g/dL RDW 19.2 H (11.5-15.5) % Eosinophils # 1.1 H (0-0.7) k/uL ESR 102 H (0-15) mm/hr C-Reactive Protein 139.4 H (<10.0) mg/L - Imaging Chest x-ray: report reviewed, image reviewed CT scan - chest: report reviewed, image reviewed EKG: image reviewed Assessment and Plan Assessment: 1. Shortness of breath, afebrile, no leukocytosis, pro-calcitonin 0.05, lactic acid 1.3 2. Superficial sternal incision infection, surface culture positive for staph epi, deep wound culture negative, current wound VAC in place 3. History of coronary artery disease, status post remote inferior wall [place] with RCA stent, status post four-vessel CABG 04/15/2020, with postoperative acute blood loss anemia status post transfusion, atrial fibrillation/flutter status post clip ligation of the left atrial appendage and successful cardioversion, urinary retention with Grimm catheter replacement, Serratia UTI, left pleural effusion with unsuccessful attempted thoracentesis 4. Mild to moderate left ventricular dysfunction, chronic systolic heart failure, preoperative EF 40-45%, EF 50% on TTE 05/03 5. Mild mitral valve regurgitation 6. Moderately dilated ascending aorta 4.2 cm 7. History of hypertension, currently borderline hypotensive 8. Hyperlipidemia 9. Previous tobacco dependence 10. Remote history of pneumonia 11. BPH with continued urinary retention followed by urology 12. Family history of premature coronary artery disease 13. Acute on chronic anemia this admission Plan: The patient was seen and examined in the ER yesterday afternoon as well as this morning. Chart/diagnostics were reviewed. The case was discussed in detail with Dr. Olivo who did see the patient in the office on May 26, and who will see the patient today. During both examinations yesterday and this morning the patient appeared in no distress whatsoever, quite comfortable, although he was at rest and not up with activity. Wound VAC will be changed today, we will coordinate with Dr. Chris to be present. Antibiotic management per Dr. Chris. Continue aspirin, statin, beta branden therapy with parameters. Encourage incentive spirometry use. Increase activity, ambulate as tolerated. Daily weights and strict accurate intake and output to be followed. GI/DVT prophylaxi s. Patient to receive packed red blood cell transfusion today for hemoglobin 6.1. Appreciate hematology recommendations. Continue postoperative lifting restrictions for a total of 12 weeks. Will monitor daily labs and x-rays. Medical management of other comorbidities per primary care service. More recommendations to follow Thank you for this consult. We look forward to working with you in the care of our mutual patient. Time with Patient: Greater than 30
[2020-06-05] MEDS ORDERED: AZITHROMYCIN 500 MG TAB PO SCH (09:00)
[2020-06-05] MEDS ORDERED: AMIODARONE 200 MG TAB PO SCH (09:00)
[2020-06-05] MEDS ORDERED: metOLazone 5 MG TAB PO SCH (09:00)
[2020-06-05] MEDS: IPRATROPIUM-ALBUTEROL 3 ML NEB INHALATION PRN (09:07)
[2020-06-05 09:31] LABS: African American GFR (CKD) 83.2 (60.0-200.0); Albumin 2.7 g/dL (3.80-4.90); Albumin/Globulin Ratio 1.42 (1.60-3.17); Anion Gap 5.6 mmol/L (4.00-12.00); Calcium 7.8 mg/dL (8.7-10.3); Carbon Dioxide 30.4 mmol/L (21.6-31.8); Globulin 1.9 g/dL (1.6-3.3); Non-African American GFR(CKD) 71.8 (60.0-200.0); Potassium 4.6 mmol/L (3.5-5.5); Total Bilirubin 0.6 mg/dL (0.2-1.2); Total Protein 4.6 g/dL (6.2-8.2)
[2020-06-05 10:09] LABS: Reticulocyte % 3.9 % (0.5-2.0)
--- NOTE | 2020-06-05 10:19 | XR ---
EXAMINATION TYPE: XR chest 2V DATE OF EXAM: 06/05/2020 COMPARISON: 06/04/2020 INDICATION: Pneumonia TECHNIQUE: Frontal and lateral views of the chest are obtained. FINDINGS: The heart size is enlarged. The pulmonary vasculature is prominent. Small posterior pleural effusions are present. Small peripheral infiltrates are stable. IMPRESSION: 1. Cardiomegaly, prominent pulmonary vascular markings, and scattered infiltrates. Correlate for CHF. 2. Pneumonia and atypical pneumonia is within the differential. Follow-up is recommended.
--- NOTE | 2020-06-05 11:57 | P.GSCN ---
History of Present Illness Consult date: 06/05/20 History of present illness: the patient is a 79-year-old gentlemanwas in the hospital after a protracted stay post coronary artery bypass graft. The patient had postoperative urinary retention and was seen by Dr. Alfaro of our office for this problem. He failed voiding trials. He had been on Flomax pre-surgery and remained on Flomax postop. With a failed voiding trials the plan was to leave indwelling catheter and the patient was to be seen in the office for follow-up cystoscopy and possible CMG. The patient is back in the hospital with a sternal infection and slowly recuperating. He has an indwelling catheter. we were asked to see the patient. I'm seeing the patient and absence. He is tolerating the catheter. He was on Flomax pretreatment. He states that he had bladder sensation with fullness when he was in retention. Review of Systems All systems: negative Past Medical History Past Medical History: Atrial Fibrillation, Coronary Artery Disease (CAD), Heart Failure, Hyperlipidemia, Hypertension, Myocardial Infarction (AL), Osteoarthritis (OA) Additional Past Medical History / Comment(s): Sepsis secondary to Serratia UTI and the patient was bacteremic Last Myocardial Infarction Date:: 2001 History of Any Multi-Drug Resistant Organisms: None Reported Past Surgical History: Coronary Bypass/CABG, Heart Catheterization With Stent, Hernia Repair, Joint Replacement, Tonsillectomy Additional Past Surgical History / Comment(s): Precancerous skin lesion removed, right knee replacement, cyst removed, bilateral cataracts removed. Bare-metal stent placed to the RCA in February 2002; 4 vessel CABG 04/13/2020 Past Anesthesia/Blood Transfusion Reactions: No Reported Reaction Date of Last Stent Placement:: 2001 Past Psychological History: No Psychological Hx Reported Smoking Status: Former smoker Past Alcohol Use History: None Reported Past Drug Use History: None Reported - Past Family History Father Family Medical History: Cancer Mother Family Medical History: Cancer, Coronary Artery Disease (CAD) Medications and Allergies Home Medications Medication Instructions Recorded Confirmed Type Acetaminophen Tab [Tylenol] 1,000 mg PO Q6HR PRN tab 04/19/20 06/04/20 Rx Ascorbic Acid [Vitamin C] 500 mg PO BID-W/MEALS tab 04/19/20 06/04/20 Rx Ferrous Sulfate [Iron (65 MG 325 mg PO BID-W/MEALS tab 04/19/20 06/04/20 Rx Elemental)] Multivitamins, Thera [Multivitamin 1 each PO DAILY tab 04/19/20 06/04/20 Rx (formulary)] Pantoprazole [Protonix] 40 mg PO AC-[id number] tablet. 04/19/20 06/04/20 Rx Sennosides-Docusate Sodium 2 each PO HS tab 04/19/20 06/04/20 Rx [Senokot-S] Amiodarone [Cordarone] 200 mg PO DAILY #2 tab 05/12/20 06/04/20 Rx Aspirin 325 mg PO DAILY tab 05/12/20 06/04/20 Rx Atorvastatin [Lipitor] 40 mg PO HS #30 tablet 05/12/20 06/04/20 Rx Finasteride [Proscar] 5 mg PO DAILY #30 tab 05/12/20 06/04/20 Rx Metoprolol Tartrate [Lopressor] 12.5 mg PO BID #60 tab 05/12/20 06/04/20 Rx Nitroglycerin Sl Tabs [Nitrostat] 0.4 mg SUBLINGUAL Q5M PRN #25 tab 05/12/20 06/04/20 Rx Tamsulosin [Flomax] 0.4 mg PO BID #60 cap.er.24h 05/12/20 06/04/20 Rx metOLazone [Zaroxolyn] 5 mg PO DAILY #30 tab 05/12/20 06/04/20 Rx Furosemide [Lasix] 20 mg PO DAILY 06/04/20 06/04/20 History Midodrine HCl [ProAmatine] 10 mg PO TID 06/04/20 06/04/20 History Allergies Allergy/AdvReac Type Severity Reaction Status Date / Time codeine Allergy Headache/brain Verified 06/04/20 12:53 swelling Surgical - Exam Vital Signs Temp Pulse Resp BP Pulse Ox 98.9 F 86 20 118/72 87 L 06/04/20 06:08 06/04/20 06:08 06/04/20 06:08 06/04/20 06:08 06/04/20 06:08 - General well developed, well nourished, no distress - Respiratory normal expansion, normal respiratory effort - Genitourinary normal indwelling catheter with clear urine Results - Labs 06/05/20 06:39 06/05/20 06:39 Abnormal Lab Results - Last 24 Hours (Table) 06/04/20 06/04/20 06/05/20 Range/Units 11:23 11:23 06:36 RBC (4.30-5.90) m/uL Hgb (13.0-17.5) gm/dL Hct (39.0-53.0) % MCV (80.0-100.0) fL MCHC (31.0-37.0) g/dL RDW (11.5-15.5) % Eosinophils # (0-0.7) k/uL ESR 102 H (0-15) mm/hr Retic Count 3.9 H (0.5-2.0) % BUN (9.0-27.0) mg/dL BUN/Creatinine Ratio (12.00-20.00) Ratio Calcium (8.7-10.3) mg/dL C-Reactive Protein 139.4 H (<10.0) mg/L Total Protein (6.2-8.2) g/dL Albumin (3.80-4.90) g/dL Albumin/Globulin Ratio (1.60-3.17) g/dL Crossmatch 06/05/20 06/05/20 06/05/20 Range/Units 06:39 06:39 08:34 RBC 1.96 L (4.30-5.90) m/uL Hgb 6.1 L* (13.0-17.5) gm/dL Hct 20.2 L (39.0-53.0) % MCV 102.9 H (80.0-100.0) fL MCHC 30.5 L (31.0-37.0) g/dL RDW 19.2 H (11.5-15.5) % Eosinophils # 1.1 H (0-0.7) k/uL ESR (0-15) mm/hr Retic Count (0.5-2.0) % BUN 31.0 H (9.0-27.0) mg/dL BUN/Creatinine Ratio 31.00 H (12.00-20.00) Ratio Calcium 7.8 L (8.7-10.3) mg/dL C-Reactive Protein (<10.0) mg/L Total Protein 4.6 L (6.2-8.2) g/dL Albumin 2.70 L (3.80-4.90) g/dL Albumin/Globulin Ratio 1.42 L (1.60-3.17) g/dL Crossmatch See Detail Microbiology - Last 24 Hours (Table) 06/04/20 08:35 Blood Culture - Preliminary Blood No Growth after 24 hours Diabetes panel 06/05/20 Range/Units 06:39 Sodium 136 (135-145) mmol/L Potassium 4.6 (3.5-5.5) mmol/L Chloride 100 (96-109) mmol/L Carbon Dioxide 30.4 (21.6-31.8) mmol/L BUN 31.0 H (9.0-27.0) mg/dL Creatinine 1.0 (0.6-1.5) mg/dL Glucose 94 (70-110) mg/dL Calcium 7.8 L (8.7-10.3) mg/dL AST 20 (14-35) U/L ALT 33 (10-49) U/L Alkaline Phosphatase 56 (41-126) U/L Total Protein 4.6 L (6.2-8.2) g/dL Albumin 2.70 L (3.80-4.90) g/dL Calcium panel 06/05/20 Range/Units 06:39 Calcium 7.8 L (8.7-10.3) mg/dL Albumin 2.70 L (3.80-4.90) g/dL Pituitary panel 06/05/20 Range/Units 06:39 Sodium 136 (135-145) mmol/L Potassium 4.6 (3.5-5.5) mmol/L Chloride 100 (96-109) mmol/L Carbon Dioxide 30.4 (21.6-31.8) mmol/L BUN 31.0 H (9.0-27.0) mg/dL Creatinine 1.0 (0.6-1.5) mg/dL Glucose 94 (70-110) mg/dL Calcium 7.8 L (8.7-10.3) mg/dL Adrenal panel 06/05/20 Range/Units 06:39 Sodium 136 (135-145) mmol/L Potassium 4.6 (3.5-5.5) mmol/L Chloride 100 (96-109) mmol/L Carbon Dioxide 30.4 (21.6-31.8) mmol/L BUN 31.0 H (9.0-27.0) mg/dL Creatinine 1.0 (0.6-1.5) mg/dL Glucose 94 (70-110) mg/dL Calcium 7.8 L (8.7-10.3) mg/dL Total Bilirubin 0.6 (0.2-1.2) mg/dL AST 20 (14-35) U/L ALT 33 (10-49) U/L Alkaline Phosphatase 56 (41-126) U/L Total Protein 4.6 L (6.2-8.2) g/dL Albumin 2.70 L (3.80-4.90) g/dL Assessment and Plan Assessment: impression: Postoperative (coronary bypass graft) urinary retention. Preo perative BPH. Recommendations: The patient needs to be seen as an outpatient in the office for cystoscopy and possible CMG. We will reschedule this for the patient has he was to be seen tomorrow and will not be discharged at that time.
--- NOTE | 2020-06-05 11:58 | P.PN ---
Subjective 79-year-old male patient of Dr. guallpa with long-standing history of CAD post PA with history of PCI and stent placement of the right coronary artery disease over 10 years ago who is known to have history of hypertension hyperlipidemia and previous history of tobacco dependency patient has been doing natural management for many years started noticing significant shortness of breath and decrease endurance when attempted to walk and ambulate was seen Dr. FRANK patel and end up going for stress test showed moderate area of infarct ischemic change p atient ended up going for heart cath on 03/09/2020 finding was consistent with 80 percentile blockage of the LAD, 70% blockage in the mid LAD, 90% blockage of the circumflex and 95% blockage of the RCA, underwent 4 vessel bypass surgery on 2019 and was sent to the ICU on mechanical ventilation. Postoperatively experienced atrial fibrillation/atrial flutter , also underwent synchronized cardioversion with return to normal sinus rhythm. Patient also received 1 unit of packed RBC while at [facility] for acute blood loss anemia. He was also found to have urinary retention for which he was placed on Soria catheter and was sent to inpatient rehab at [facility]. Patient was given iron infusion at [facility] and 2 attempts were made to remove Soria catheter without any success. Patient is started on Flomax and proscar to help with urine retention. Patient was noted to be short of breath at inpatient rehab on 04/25 sec t o left pleural effusion, developed worsening shortness of breath requiring brief stay at ICU. Chest CT was obtained that showed an congestive heart failure with mild infiltrate with failed attempt at thoracentesis with minimal output. The echo suggested an EF of 50% Urine and blood culture was was positive for Serratia and patient was placed on cefepime by Dr. Hightower. On 05/06 was transferred back to [facility] for superficial sternal incision infection positive for staph epi. Patient completed 4 weeks of IV daptomycin and follows up with wound care under Dr. Hightower as outpatient. Patient wears wound VAC gets changed every Friday and Friday and in the wound Center every Friday. Since patient continued to have urinary retention with failed attempts to remove it patient was discharged on Soria catheter with outpatient follow-up with urology. Patient has upcoming appointment on 06/06 for possible urodynamic studies. He was doing well until a few days ago when he was unable to walk to his car without getting shortness of breath. Patient has seen his laboratory analyst Dr. Knowles and Dr. Little areas bowel outpatient within the last 1 week and was told he is doing well. Some of his medications were adjusted as outpatient. Patient endorses cough with mild phlegm production. He denies any chest pain or increased drainage from the wound. He follows every week at Wound Center and has been told his sternal incision is healing well. Patient denies any change in bowel movements or blood in the stools. He denies any nausea or vomiting. On evaluation in the ER patient was found to have a temp of 97.8 pulse 85 respiratory rate 16 blood pressure 109/58 oxygen saturation 91% on 2 L of oxygen. Patient does not wear oxygen at home. On evaluation of his last patient continues to have a low hemoglobin 7.1, MCV 103.5 platelet 455 ESR has worsened since the beginning of May to , CRP increased from 25-139. ProBNP is 2560. Albumin is 2.8 pro-calcitonin ordered. Legionella antigen ordered. Mycoplasma IgM ordered COVID 19 pending. Continue broad-spectrum antibiotic with vancomycin and cefepime. Infectious disease consult placed. Cardiothoracic surgery consulted. Lasix initiated at 40 IV twice a day continue metolazone and 5 mg by mouth daily. 06/05: Patient was evaluated today noted to be sitting in bedside chair. Patient still has complaints of mild shortness of breath, denies any chest pain. Hemogl obin did drop today to 6.1, 1 unit PRBCs ordered. Will check fecal occult blood. Urology has been consulted for his urinary retention. Repeat chest x-ray shows cardiomegaly and prominent pulmonary vascular markings scattered infiltrate and possible pneumonia although his Pro-calcitonin was 0.05, he continues on cefepime and vancomycin. Wound VAC is scheduled to be changed today, infectious disease is on consult. Objective - Vital Signs Vital signs: Vital Signs Temp 98.3 F 06/05/20 10:31 Pulse 80 06/05/20 11:01 Resp 18 06/05/20 11:01 BP 90/56 06/05/20 11:01 Pulse Ox 95 06/05/20 11:01 Intake & Output 06/04/20 06/05/20 06/05/20 18:59 06:59 18:59 Intake Total 100 100 200 Output Total 950 Balance -850 100 200 Weight 74.843 kg 78 kg Intake: Intake, IV Titration 100 Amount Cefepime 2 gm In Sodium 100 Chloride 0.9% 100 ml @ 25 mls/hr IVPB Q12HR [facility] Rx #:[id number] Oral 100 200 Blood Product 0 Rc As-1 Unit 0 [id number] Output: Urine 950 Other: Voiding Method Indwelling Catheter Indwelling Catheter Indwelling Catheter # Voids 1 - Exam - Constitutional General appearance: cooperative, no acute distress - EENT Eyes: anicteric sclerae, pupil equal and round , normal appearance ENT: hearing grossly normal - Neck Neck: no lymphadenopathy, normal ROM, JVP absent - Respiratory Respiratory: bilateral: crackles with dimiinished air entry at bases - Cardiovascular Rhythm: regular Heart sounds: normal: S1, S2 Abnormal Heart Sounds: no systolic murmur, no diastolic murmur. - Gastrointestinal General gastrointestinal: normal bowel sounds, soft, non tender, soria catheter - Integumentary Integumentary: no rash, sternal wound packed with dry dressing and wound vac - Neurologic Neurologic: No gross motor or sensory deficit located no abnormality - Musculoskeletal Musculoskeletal: gait normal, strength equal bilaterally - Psychiatric Psychiatric: A&O x's 3, appropriate affect - Labs CBC & Chem 7: 06/05/20 06:39 06/05/20 06:39 Labs: Abnormal Lab Results - Last 24 Hours (Table) 06/04/20 06/04/20 06/05/20 Range/Units 11:23 11:23 06:36 RBC (4.30-5.90) m/uL Hgb (13.0-17.5) gm/dL Hct (39.0-53.0) % MCV (80.0-100.0) fL MCHC (31.0-37.0) g/dL RDW (11.5-15.5) % Eosinophils # (0-0.7) k/uL ESR 102 H (0-15) mm/hr Retic Count 3.9 H (0.5-2.0) % BUN (9.0-27.0) mg/dL BUN/Creatinine Ratio (12.00-20.00) Ratio Calcium (8.7-10.3) mg/dL C-Reactive Protein 139.4 H (<10.0) mg/L Total Protein (6.2-8.2) g/dL Albumin (3.80-4.90) g/dL Albumin/Globulin Ratio (1.60-3.17) g/dL Crossmatch 06/05/20 06/05/20 06/05/20 Range/Units 06:39 06:39 08:34 RBC 1.96 L (4.30-5.90) m/uL Hgb 6.1 L* (13.0-17.5) gm/dL Hct 20.2 L (39.0-53.0) % MCV 102.9 H (80.0-100.0) fL MCHC 30.5 L (31.0-37.0) g/dL RDW 19.2 H (11.5-15.5) % Eosinophils # 1.1 H (0-0.7) k/uL ESR (0-15) mm/hr Retic Count (0.5-2.0) % BUN 31.0 H (9.0-27.0) mg/dL BUN/Creatinine Ratio 31.00 H (12.00-20.00) Ratio Calcium 7.8 L (8.7-10.3) mg/dL C-Reactive Protein (<10.0) mg/L Total Protein 4.6 L (6.2-8.2) g/dL Albumin 2.70 L (3.80-4.90) g/dL Albumin/Globulin Ratio 1.42 L (1.60-3.17) g/dL Crossmatch See Detail Microbiology - Last 24 Hours (Table) 06/04/20 08:35 Blood Culture - Preliminary Blood No Growth after 24 hours Assessment and Plan Plan: 1 acute hypoxic respiratory failure a candidate to acute diastolic congestive heart failure with possible healthcare associated pneumonia. Pro-calcitonin ordered continue DuoNeb as needed for shortness of breath. Sputum culture. Lasix 40 IV twice a day. ProBNP high. Cardiothoracic surgery consulted. Will switch antibiotic to cefepime and vancomycin for broader coverage. Infectious disease consulted. 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 mucinex 600 q12 . I and O monitoring, daily weight 2 Post surgical superficial sternal infection status post I and D, wears wound vac, changed every mon, wed and friday. Wound culture was staph epi at [facility], no growth at [facility] . completed daptomycin as outpatient 3. CAUTI bacteremia secondary to Serratia. Completed cefepime as outpatient. Continues to have Soria catheter for urinary retention 4. H/o triple vessel coronary disease s/p remote inferior wall PA with RCA stent, post 4 vessel coronary artery bypass grafting with KEANE to the LAD, left radial arterial graft to the OM, SVG to the PDA, SVG to the diagonal with left radial artery harvest along with left lower extremity endoscopy Vein harvest on 04/13. On aspirin 325 mg, Lipitor 40 mg by mouth daily 5. Postop atrial flutter/ atrial fibrillation status post clip ligation of the left atrial appendage and cardioversion. Oral amiodarone was tapered off but it appears to be on patient's list. We will confirm with pharmacy on Lopressor. Patient is not on eliquis , which was discontinued during last was 6. 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 on Flomax and Finasteride 5 mg by mouth daily. Follows up with urology as outpatient 7. Acute on chronic anemia with bone marrow suppression status post multiple transfusions during last visit and iron infusion at [facility]. Continue daily CBC. Transfuse if hemoglobin less than 7. Continue iron supplementation daily patient needs to see an oncologist for assessment of anemia. Oncology consult placed 8. Systolic congestive heart failure with ejection fraction 50% with [id number] left ventricular dysfunction. Last echo obtained on 05/03 9. Hypertension. Continue Lopressor. 10. Hyperlipidemia: atorvastatin 40 mg daily resume medication. 11. History of osteoarthritis post right total knee arthroplasty. 12. Hyperglycemia. NovoLog scale. 13. DVT prophylaxis: heparin q 12 14. GI prophylaxis: Pantoprazole 40 by mouth with breakfast CODE STATUS: Full code. The above impression and plan of care have been discussed and directed by signing physician. Clarisa Perry nurse practitioner acting as scribe for signing physician.
--- NOTE | 2020-06-05 12:04 | P.CRDCN ---
History of Present Illness History of present illness: HISTORY OF PRESENTING ILLNESS This is a pleasant 79-year-old male past medical history significant for coronary artery disease status post PCI of the proximal RCA in 2001 in the setting of a myocardial infarction, recent coronary artery bypass grafting with KEANE to LAD, radial artery to OM, SVG to diagonal branch and SVG to RCA complicated by sepsis, wound dehiscence and wound infection with wound VAC still in place, hypertension, dyslipidemia, BPH with urinary retention, anemia, systolic heart failure, atrial flutter status post cardioversion and former nicotine dependence. He follows in the office with Dr. Knowles. We have been asked to see in consultation for afib. He underwent bypass grafting 04/14/2020 which was complicated by post-operative afib that was successfully cardioverted back to sinus 04/19/2020. He was initiated on amiodarone and Eliquis at that time. He then returned to the hospital a few weeks later with wound dehisence, infection requiring wound vac placement, sepsis and anemia. His Eliquis was discontinued at that time. He returned to the hospital June 04 with symptoms of shortness of breath. He states this has been going on for approxi mately 3 days. He denies chest pain, dizziness or palpitations. Chest x-ray on admission revealed interstitial pulmonary infiltrates with small pleural effusions, probably pulmonary fibrosis with no overt heart failure. Repeat chest x-ray today reveals prominent pulmonary vascular markings and scattered infiltrates. Consider heart failure, pneumonia or atypical pneumonia as the differential diagnosis. CT of the chest reveals moderate bilateral pleural effusions improved compared to old exam with moderate cardiomegaly. There are new bilateral extensive peripheral pulmonary airspace infiltrates consistent with inflammatory disease. Current daily cardiac medications include amiodarone 200 mg daily, aspirin 325 mg daily, atorvastatin 40 mg daily, Lopressor 12.5 mg twice a day, midodrine 10 mg 3 times a day and Lasix 20 mg daily. Laboratory data reviewed, WBC 8.1, hemoglobin 6.1, platelets 394, sodium 136, potassium 4.6, creatinine 1.0, cardiac enzymes negative 1, NT proBNP 2560, procalcitonin on an 0.05. EKG reveals T-wave inversion in the high lateral leads.and peaked inferiorly. REVIEW OF SYSTEMS At the time of my exam: CONSTITUTIONAL: Denies fever or chills. CARDIOVASCULAR: Complains of shortness of breath. Denies chest pain, orthopnea, PND or palpitations. RESPIRATORY: Denies cough. GASTROINTESTINAL: Denies abdominal pain, diarrhea, constipation, nausea or vomiting. MUSCULOSKELETAL: Complains of generalized weakness and fatigue. Denies myalgias. NEUROLOGIC: Denies numbness, tingling or weakness. ENDOCRINE: Denies fatigue, weight change, polydipsia or polyurina. GENITOURINARY: Denies burning, hematuria or urgency with micturation. HEMATOLOGIC: Denies history of anemia or bleeding. PHYSICAL EXAMINATION Blood pressure 90/56 heart rate 80 afebrile and maintaining oxygen saturation on nasal cannula. CONSTITUTIONAL: No apparent distress. HEENT: Head is normocephalic. Pupils are equal, round. Sclerae anicteric. Mucous membranes of the mouth are moist. No JVD. No carotid bruit. CHEST EXAMINATION: Lungs are clear to auscultation. No chest wall tenderness is noted on palpation or with deep breathing. Diminished bilaterally. Dressing and wound vac in place to the mid-sternal region. HEART EXAMINATION: Regular rate and rhythm. S1, S2 heard. No murmurs, gallops or rub. ABDOMEN: Soft, nontender. Positive bowel sounds. EXTREMITIES: 2+ peripheral pulses, no lower extremity edema and no calf tenderness. NEUROLOGIC EXAMINATION: Patient is awake, alert and oriented x3. ASSESSMENT Shortness of breath secondary to anemia and mild heart failure Coronary artery disease s/p bypass grafting Paroxysmal atrial fibrillation s/p cardioversion, not on anti-coagulation secondary to anemia. Maintaining sinus mechanism. Anemia Hypertension with recent episodes of hypotension Dyslipidemia Acute on chronic systolic heart failure Increase weakness and fatigue History of BPH with urinary retention Sternal wound infection with wound vac in place PLAN Repeat 2D echocardiogram and doppler study to assess cardiac structure and function. No jail anti-coagulation secondary to anemia. Further work-up ongoing by hematology. Shortness of breath multi-factorial due to anemia, mild heart failure and pulmonary disease. Repeat EKG. Further recommendations to follow based on clinical course. Thank you kindly for this consultation. Nurse Practitioner note has been reviewed, I agree with a documented findings and plan of care. Patient was seen and examined. Past Medical History Past Medical History: Atrial Fibrillation, Coronary Artery Disease (CAD), Heart Failure, Hyperlipidemia, Hypertension, Myocardial Infarction ([place]), Osteoarthritis (OA) Additional Past Medical History / Comment(s): Sepsis secondary to Serratia UTI and the patient was bacteremic Last Myocardial Infarction Date:: 2001 History of Any Multi-Drug Resistant Organisms: None Reported Past Surgical History: Coronary Bypass/CABG, Heart Catheterization With Stent, Hernia Repair, Joint Replacement, Tonsillectomy Additional Past Surgical History / Comment(s): Precancerous skin lesion removed, right knee replacement, cyst removed, bilateral cataracts removed. Bare-metal stent placed to the RCA in February 2002; 4 vessel CABG 04/13/2020 Past Anesthesia/Blood Transfusion Reactions: No Reported Reaction Date of Last Stent Placement:: 2001 Past Psychological History: No Psychological Hx Reported Smoking Status: Former smoker Past Alcohol Use History: None Reported Past Drug Use History: None Reported - Past Family History Father Family Medical History: Cancer Mother Family Medical History: Cancer, Coronary Artery Disease (CAD) Medications and Allergies Home Medications Medication Instructions Recorded Confirmed Type Acetaminophen Tab [Tylenol] 1,000 mg PO Q6HR PRN tab 04/19/20 06/04/20 Rx Ascorbic Acid [Vitamin C] 500 mg PO BID-W/MEALS tab 04/19/20 06/04/20 Rx Ferrous Sulfate [Iron (65 MG 325 mg PO BID-W/MEALS tab 04/19/20 06/04/20 Rx Elemental)] Multivitamins, Thera [Multivitamin 1 each PO DAILY tab 04/19/20 06/04/20 Rx (formulary)] Pantoprazole [Protonix] 40 mg PO AC-BRKFST tablet. 04/19/20 06/04/20 Rx Sennosides-Docusate Sodium 2 each PO HS tab 04/19/20 06/04/20 Rx [Senokot-S] Amiodarone [Cordarone] 200 mg PO DAILY #2 tab 05/12/20 06/04/20 Rx Aspirin 325 mg PO DAILY tab 05/12/20 06/04/20 Rx Atorvastatin [Lipitor] 40 mg PO HS #30 tablet 05/12/20 06/04/20 Rx Finasteride [Proscar] 5 mg PO DAILY #30 tab 05/12/20 06/04/20 Rx Metoprolol Tartrate [Lopressor] 12.5 mg PO BID #60 tab 05/12/20 06/04/20 Rx Nitroglycerin Sl Tabs [Nitrostat] 0.4 mg SUBLINGUAL Q5M PRN #25 tab 05/12/20 06/04/20 Rx Tamsulosin [Flomax] 0.4 mg PO BID #60 cap.er.24h 05/12/20 06/04/20 Rx metOLazone [Zaroxolyn] 5 mg PO DAILY #30 tab 05/12/20 06/04/20 Rx Furosemide [Lasix] 20 mg PO DAILY 06/04/20 06/04/20 History Midodrine HCl [ProAmatine] 10 mg PO TID 06/04/20 06/04/20 History Allergies Allergy/AdvReac Type Severity Reaction Status Date / Time codeine Allergy Headache/brain Verified 06/04/20 12:53 swelling Physical Exam Vitals: Vital Signs Temp Pulse Pulse Resp BP BP Pulse Ox 06/05/20 11:01 80 18 90/56 95 06/05/20 10:31 98.3 F 84 18 102/40 97 06/05/20 10:21 87 17 100/48 96 06/05/20 09:22 80 06/05/20 09:08 80 06/05/20 07:00 98.2 F 77 20 99/48 95 06/05/20 00:00 98.8 F 63 18 85/48 96 06/04/20 20:16 88 06/04/20 20:06 88 06/04/20 19:05 98.4 F 89 18 108/53 97 06/04/20 15:48 86 06/04/20 15:41 84 06/04/20 15:00 98.4 F 83 18 98/49 95 06/04/20 13:15 97.8 F 85 16 109/58 91 L 06/04/20 13:00 73 20 104/64 98 06/04/20 12:30 77 20 106/58 99 06/04/20 12:00 77 24 102/55 95 06/04/20 11:30 76 17 91/56 98 Intake and Output 06/04/20 06/05/20 06/05/20 22:59 06:59 14:59 Intake Total 100 200 Balance 100 200 Intake: Intake, IV Titration 100 Amount Cefepime 2 gm In Sodium 100 Chloride 0.9% 100 ml @ 25 mls/hr IVPB Q12HR [facility] Rx #:[id number] Oral 200 Blood Product 0 Rc As-1 Unit 0 [id number] Other: Voiding Method Indwelling Catheter Indwelling Catheter Indwelling Catheter # Voids 1 1 Weight 78 kg Results 06/05/20 06:39 06/05/20 06:39 Cardiac Enzymes 06/05/20 Range/Units 06:39 AST 20 (14-35) U/L CBC 06/05/20 Range/Units 06:39 WBC 8.1 (3.8-10.6) k/uL RBC 1.96 L (4.30-5.90) m/uL Hgb 6.1 L* (13.0-17.5) gm/dL Hct 20.2 L (39.0-53.0) % Plt Count 394 (150-450) k/uL Comprehensive Metabolic Panel 06/05/20 Range/Units 06:39 Sodium 136 (135-145) mmol/L Potassium 4.6 (3.5-5.5) mmol/L Chloride 100 (96-109) mmol/L Carbon Dioxide 30.4 (21.6-31.8) mmol/L BUN 31.0 H (9.0-27.0) mg/dL Creatinine 1.0 (0.6-1.5) mg/dL Glucose 94 (70-110) mg/dL Calcium 7.8 L (8.7-10.3) mg/dL AST 20 (14-35) U/L ALT 33 (10-49) U/L Alkaline Phosphatase 56 (41-126) U/L Total Protein 4.6 L (6.2-8.2) g/dL Albumin 2.70 L (3.80-4.90) g/dL Current Medications Generic Name Dose Route Start Last Admin Trade Name Freq PRN Reason Stop Dose Admin Acetaminophen 650 mg 06/04/20 15:04 06/04/20 20:56 Acetaminophen Tab 325 Mg Tab PO 650 mg Q6HR PRN Administration Fever and/ or Pain Albuterol/Ipratropium 3 ml 06/04/20 15:04 06/05/20 09:07 Ipratropium-Albuterol 3 Ml Neb INHALATION 3 ml RT-QID PRN Administration Shortness Of Breath Ascorbic Acid 500 mg 06/04/20 17:30 06/05/20 07:18 Ascorbic Acid 500 Mg Tab PO 500 mg BID-W/MEALS MANUEL Administration Aspirin 325 mg 06/05/20 09:00 06/05/20 08:44 Aspirin 325 Mg Tab PO 325 mg DAILY [facility] Administration Atorvastatin Calcium 40 mg 06/04/20 21:00 06/04/20 20:43 Atorvastatin 40 Mg Tab PO 40 mg HS MANUEL Administration Ferrous Sulfate 325 mg 06/04/20 17:30 06/05/20 07:18 Ferrous Sulfate 325 Mg Tab PO 325 mg BID-W/MEALS MANUEL Administration Finasteride 5 mg 06/05/20 09:00 06/05/20 08:44 Finasteride 5 Mg Tab PO 5 mg DAILY MANUEL Administration Furosemide 40 mg 06/04/20 21:00 06/05/20 08:44 Furosemide 10 Mg/Ml 4 Ml Vial IV 40 mg Q12HR [facility]UEL Administration Guaifenesin 600 mg 06/04/20 21:00 06/05/20 08:45 Guaifenesin 600 Mg Tablet.Er PO 600 mg Q12HR [facility] Administration Heparin Sodium (Porcine) 5,000 unit 06/04/20 21:00 06/05/20 08:45 Heparin Sodium,Porcine 5,000 Unit/Ml 1 Ml Vial SQ 5,000 unit Q12HR [facility]UEL Administration Vancomycin HCl 1,500 mg/ 250 mls @ 125 mls/hr 06/05/20 00:00 06/04/20 23:46 Sodium Chloride IVPB 125 mls/hr Q16H [facility] Administration Cefepime HCl 2 gm/ Sodium 100 mls @ 25 mls/hr 06/04/20 21:00 06/05/20 08:44 Chloride IVPB 25 mls/hr Q12HR [facility] Administration Metoprolol Tartrate 12.5 mg 06/04/20 21:00 06/05/20 08:45 Metoprolol Tartrate 12.5 Mg Tab PO 12.5 mg BID [facility]UEL Administration Midodrine 10 mg 06/04/20 17:30 06/05/20 07:18 Midodrine 5 Mg Tab PO 10 mg AC-TID [facility]UEL Administration Miscellaneous Information 1 each 06/04/20 08:28 Pneumonia Protocol Utilized 1 Each Misc PO ONCE PRN Per Protocol Multivitamins 1 each 06/05/20 09:00 06/05/20 08:45 Multivitamins, Thera 1 Each Tab PO 1 each DAILY MANUEL Administration Nitroglycerin 0.4 mg 06/04/20 14:36 Nitroglycerin Sl Tabs 0.4 Mg Tab SUBLINGUAL Q5M PRN Chest Pain Ondansetron HCl 4 mg 06/04/20 15:04 Ondansetron 4 Mg/2 Ml Vial IVP Q6HR PRN Nausea And Vomiting Pantoprazole Sodium 40 mg 06/05/20 07:30 06/05/20 07:18 Pantoprazole 40 Mg Tablet PO 40 mg AC-BRKFST MANUEL Administration Potassium Chloride 40 meq 06/05/20 09:00 06/05/20 08:45 Potassium Chloride Er 20 Meq Tab.Er PO 06/06/20 09:01 40 meq DAILY MANUEL Administration Senna/Docusate Sodium 2 each 06/04/20 21:00 06/04/20 20:43 Sennosides-Docusate Sodium 1 Each Tab PO 2 each HS MANUEL Administration Tamsulosin HCl 0.4 mg 06/05/20 08:30 06/05/20 08:44 Tamsulosin 0.4 Mg Cap.Er.24h PO 0.4 mg PC-BRKFST MANUEL Administration Intake and Output 06/04/20 06/05/20 06/05/20 22:59 06:59 14:59 Intake Total 100 200 Balance 100 200 Intake: Intake, IV Titration 100 Amount Cefepime 2 gm In Sodium 100 Chloride 0.9% 100 ml @ 25 mls/hr IVPB Q12HR [facility] Rx #:[id number] Oral 200 Blood Product 0 Rc As-1 Unit 0 [id number] Other: Voiding Method Indwelling Catheter Indwelling Catheter Indwelling Catheter # Voids 1 1 Weight 78 kg 06/05/20 06:39 06/05/20 06:39
--- NOTE | 2020-06-05 16:15 | P.CONS ---
History of Present Illness - Reason for Consult Consult date: 06/05/20 Macrocytic anemia Requesting physician: Joaquín Mcdowell - Chief Complaint Dyspnea, status post CABG - History of Present Illness Mr. Pereyra is a very pleasant 79-year-old male who recently underwent CABG, unfortunately, sternal incision became infected, being treated with wound VAC. Patient denies any history of anemia, no fevers, coughing anything up, chronic kidney disease, bleeding. He was on antibiotics prior to admission. He was admitted earlier this month with similar symptoms. He did have transfusion at that time. Review of Systems 14 point review of systems is negative except as stated in HPI Past Medical History Past Medical History: Atrial Fibrillation, Coronary Artery Disease (CAD), Heart Failure, Hyperlipidemia, Hypertension, Myocardial Infarction ([place]), Osteoarthritis (OA) Additional Past Medical History / Comment(s): Sepsis secondary to Serratia UTI and the patient was bacteremic Last Myocardial Infarction Date:: 2001 History of Any Multi-Drug Resistant Organisms: None Reported Past Surgical History: Coronary Bypass/CABG, Heart Catheterization With Stent, Hernia Repair, Joint Replacement, Tonsillectomy Additional Past Surgical History / Comment(s): Precancerous skin lesion removed, right knee replacement, cyst removed, bilateral cataracts removed. Bare-metal stent placed to the RCA in February 2002; 4 vessel CABG 04/13/2020 Past Anesthesia/Blood Transfusion Reactions: No Reported Reaction Date of Last Stent Placement:: 2001 Past Psychological History: No Psychological Hx Reported Smoking Status: Former smoker Past Alcohol Use History: None Reported Past Drug Use History: None Reported - Past Family History Father Family Medical History: Cancer Mother Family Medical History: Cancer, Coronary Artery Disease (CAD) Medications and Allergies Home Medications Medication Instructions Recorded Confirmed Type Acetaminophen Tab [Tylenol] 1,000 mg PO Q6HR PRN tab 04/19/20 06/04/20 Rx Ascorbic Acid [Vitamin C] 500 mg PO BID-W/MEALS tab 04/19/20 06/04/20 Rx Ferrous Sulfate [Iron (65 MG 325 mg PO BID-W/MEALS tab 04/19/20 06/04/20 Rx Elemental)] Multivitamins, Thera [Multivitamin 1 each PO DAILY tab 04/19/20 06/04/20 Rx (formulary)] Pantoprazole [Protonix] 40 mg PO AC-BRKFST tablet. 04/19/20 06/04/20 Rx Sennosides-Docusate Sodium 2 each PO HS tab 04/19/20 06/04/20 Rx [Senokot-S] Amiodarone [Cordarone] 200 mg PO DAILY #2 tab 05/12/20 06/04/20 Rx Aspirin 325 mg PO DAILY tab 05/12/20 06/04/20 Rx Atorvastatin [Lipitor] 40 mg PO HS #30 tablet 05/12/20 06/04/20 Rx Finasteride [Proscar] 5 mg PO DAILY #30 tab 05/12/20 06/04/20 Rx Metoprolol Tartrate [Lopressor] 12.5 mg PO BID #60 tab 05/12/20 06/04/20 Rx Nitroglycerin Sl Tabs [Nitrostat] 0.4 mg SUBLINGUAL Q5M PRN #25 tab 05/12/20 06/04/20 Rx Tamsulosin [Flomax] 0.4 mg PO BID #60 cap.er.24h 05/12/20 06/04/20 Rx metOLazone [Zaroxolyn] 5 mg PO DAILY #30 tab 05/12/20 06/04/20 Rx Furosemide [Lasix] 20 mg PO DAILY 06/04/20 06/04/20 History Midodrine HCl [ProAmatine] 10 mg PO TID 06/04/20 06/04/20 History Allergies Allergy/AdvReac Type Severity Reaction Status Date / Time codeine Allergy Headache/brain Verified 06/04/20 12:53 swelling Physical Exam Vitals: Vital Signs Temp Pulse Pulse Resp BP BP Pulse Ox 06/05/20 15:00 98.1 F 73 16 93/41 98 06/05/20 12:53 75 18 101/43 95 06/05/20 11:01 80 18 90/56 95 06/05/20 10:31 98.3 F 84 18 102/40 97 06/05/20 10:21 87 17 100/48 96 06/05/20 09:22 80 06/05/20 09:08 80 06/05/20 07:00 98.2 F 77 20 99/48 95 06/05/20 00:00 98.8 F 63 18 85/48 96 06/04/20 20:16 88 06/04/20 20:06 88 06/04/20 19:05 98.4 F 89 18 108/53 97 Intake and Output 06/05/20 06/05/20 06/05/20 06:59 14:59 22:59 Intake Total 710 Output Total 500 Balance 210 Intake: Oral 400 Blood Product 310 Rc As-1 Unit 310 [id number] Output: Urine 500 Other: Voiding Method Indwelling Catheter Indwelling Catheter # Voids 1 Weight 78 kg - Constitutional General appearance: average body habitus, cooperative, no acute distress - EENT Eyes: anicteric sclerae, EOMI ENT: hearing grossly normal, normal oropharynx - Neck Neck: no lymphadenopathy - Respiratory Respiratory: bilateral: CTA - Cardiovascular Heart sounds: normal: S1, S2 Abnormal Heart Sounds: systolic murmur, S3 Gallop (Possible) leg Peripheral Edema: bilateral: None - Gastrointestinal General gastrointestinal: no absent bowel sounds, no decreased bowel sounds, no distended, no hepatomegaly, no hyperactive bowel sounds, normal bowel sounds, no organomegaly, no rigid, no scaphoid, soft, no splenomegaly, no tenderness, no umbilical hernia, no ventral hernia - Neurologic Neurologic: CNII-XII intact - Musculoskeletal Musculoskeletal: generalized weakness, strength equal bilaterally - Psychiatric Psychiatric: A&O x's 3, appropriate affect, intact judgment & insight Results CBC & Chem 7: 06/05/20 06:39 06/05/20 06:39 Labs: Abnormal Lab Results - Last 24 Hours (Table) 06/05/20 06/05/20 06/05/20 Range/Units 06:36 06:39 06:39 RBC 1.96 L (4.30-5.90) m/uL Hgb 6.1 L* (13.0-17.5) gm/dL Hct 20.2 L (39.0-53.0) % MCV 102.9 H (80.0-100.0) fL MCHC 30.5 L (31.0-37.0) g/dL RDW 19.2 H (11.5-15.5) % Eosinophils # 1.1 H (0-0.7) k/uL Retic Count 3.9 H (0.5-2.0) % BUN 31.0 H (9.0-27.0) mg/dL BUN/Creatinine Ratio 31.00 H (12.00-20.00) Ratio Calcium 7.8 L (8.7-10.3) mg/dL Total Protein 4.6 L (6.2-8.2) g/dL Albumin 2.70 L (3.80-4.90) g/dL Albumin/Globulin Ratio 1.42 L (1.60-3.17) g/dL Crossmatch 06/05/20 Range/Units 08:34 RBC (4.30-5.90) m/uL Hgb (13.0-17.5) gm/dL Hct (39.0-53.0) % MCV (80.0-100.0) fL MCHC (31.0-37.0) g/dL RDW (11.5-15.5) % Eosinophils # (0-0.7) k/uL Retic Count (0.5-2.0) % BUN (9.0-27.0) mg/dL BUN/Creatinine Ratio (12.00-20.00) Ratio Calcium (8.7-10.3) mg/dL Total Protein (6.2-8.2) g/dL Albumin (3.80-4.90) g/dL Albumin/Globulin Ratio (1.60-3.17) g/dL Crossmatch See Detail Microbiology - Last 24 Hours (Table) 06/04/20 08:35 Blood Culture - Preliminary Blood No Growth after 24 hours Chest x-ray: report reviewed CT scan - chest: report reviewed Assessment and Plan (1) Macrocytic anemia Narrative/Plan: Patient anemia was mild on labs preop, more notable and persistent postoperatively. Macrocytic anemia workup ordered. Transfuse to keep hemoglobin 7 or higher unless patient is symptomatic. 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 Discussed with dictator. I agree with dictators note, documented as a scribe.
[2020-06-05] MEDS: VANCOMYCIN 1,500 MG in SODIUM CHLORIDE 0.9% 250 ML IVPB SCH (16:26)
[2020-06-05 17:36] LABS: % Iron Saturation 3.33 (15.00-50.00)
--- NOTE | 2020-06-05 17:44 | ECHOF ---
Referral Reason:sob, ekg changes MEASUREMENTS -------- HEIGHT: 170.2 cm WEIGHT: 77.6 kg BP: 90/56 IVSd: 1.5 cm (0.6 - 1.1) LVIDd: 4.6 cm (3.9 - 5.3) LVPWd: 1.4 cm (0.6 - 1.1) IVSs: 1.8 cm LVIDs: 3.6 cm LVPWs: 1.5 cm FINDINGS -------- Limited Study History of open heart surgery There is moderate concentric left ventricular hypertrophy. Overall left ventricular systolic functi on is mild-moderately impaired with, an EF between 40 - 45 %. Septal wall motion is delayed and con sistent with prior cardiac surgery. There is no pericardial effusion. CONCLUSIONS -------- 1. There is moderate concentric left ventricular hypertrophy. 2. Overall left ventricular systolic function is mild-moderately impaired with, an EF between 40 - 45 %. 3. Septal wall motion is delayed and consistent with prior cardiac surgery. [employer] PRINCIPAL: Gali Del Angel, ANDREIA
[2020-06-05] MEDS: SENNOSIDES-DOCUSATE SODIUM 1 EACH TAB PO SCH (20:35)
[2020-06-05] MEDS: ATORVASTATIN 40 MG TAB PO SCH (20:36)
--- NOTE | 2020-06-05 22:53 | PN ---
PROGRESS NOTE DATE OF SERVICE: 06/05/2020 REASON FOR FOLLOWUP: Sternal wound infection. INTERVAL HISTORY: The patient is currently afebrile. The patient is breathing more comfortably. The patient denies having any chest pain or cough. No vomiting. No abdominal pain or diarrhea. PHYSICAL EXAMINATION: Blood pressure 93/41 with a pulse of 73, temperature 98.1. He is 98% on room air. General description is an elderly male lying in bed in no distress. RESPIRATORY SYSTEM: Unlabored breathing with decreased breath sounds at the base. No wheeze. HEART: S1, S2. Regular rate and rhythm. ABDOMEN: Soft. No tenderness. Sternal wound looks clean and significantly decreased in size with no surrounding redness or any drainage. LABS: Hemoglobin 6.1, white count 8.1. Sed rate 102. BUN of 31, creatinine 1.0. CRP is 129. DIAGNOSTIC IMPRESSION AND PLAN: 1. Patient with a sternal wound infection, previous culture positive for Staph epidermidis. Patient seems to have shown much clinical improvement. 4-week course of therapy from his last admission. 2. Patient admitted to hospital with shortness of breath, possibly fluid-related or related to his underlying clinically not behaving as pneumonia, with the culture negative. Cefepime can be discontinued. MMODL / IJN: [id number] /
[2020-06-05] MEDS: ACETAMINOPHEN TAB 325 MG TAB PO PRN (23:32)
--- NOTE | 2020-06-06 08:14 | XR ---
EXAMINATION TYPE: XR chest 2V DATE OF EXAM: 06/06/2020 COMPARISON: 06/05/2020 TECHNIQUE: PA and lateral views submitted. HISTORY: Abnormal x-ray FINDINGS: The heart is enlarged. There is biapical pleural thickening with areas of consolidation pleural effus ion. Postoperative changes noted is diffuse interstitial pattern. Underlying COPD suspected. Atherosc lerotic change aorta. Question a midline or PICC line extending to the level of the left axilla. IMPRESSION: 1. Diffuse pleural-parenchymal changes are stable superimposed on a background of COPD. Findings are stable. Correlate for CHF versus multifocal pneumonia.
[2020-06-06 08:52] LABS: Anisocytosis Slight; Basophils % (A) 0 %; Eosinophils # (A) 1.4 k/uL (0-0.7); Eosinophils % (A) 19 %; HCT 23.8 % (39.0-53.0); HGB 7.1 gm/dL (13.0-17.5); Hypochromasia Marked; Lymphocytes % (A) 14 %; MCH 30.6 pg (25.0-35.0); MCHC 29.9 g/dL (31.0-37.0); MCV 102.2 fL (80.0-100.0); Macrocytosis Moderate; Mean Platelet Volume 8.6; Monocytes # (A) 0.4 k/uL (0-1.0); Monocytes % (A) 6 %; Neutrophils # (A) 4.6 k/uL (1.3-7.7); Neutrophils % (A) 61 %; Platelet Count 398 k/uL (150-450); Poikilocytosis Slight; RBC 2.33 m/uL (4.30-5.90); RDW 18.9 % (11.5-15.5); WBC 7.5 k/uL (3.8-10.6)
--- NOTE | 2020-06-06 09:08 | P.PN ---
Subjective Progress Note Date: 06/06/20 Principal diagnosis: Dyspnea, afebrile, no leukocytosis, Pro calcitonin level 0.05, lactic acid 1.3. Past medical history significant for coronary artery disease with recent inferi or wall myocardial infarction and RCA stent placement, status post 4 vessel CABG on 04/13/2020 with postoperative acute blood loss anemia status post transfusion, atrial fibrillation status post clip ligation of left atrial appendage with cardioversion, urinary retention with Grimm catheter placement, Serratia UTI, superficial sternal incision infection with staph epi, left pleural effusion with unsuccessful attempted thoracentesis, mild to moderate left ventricular diastolic dysfunction, chronic diastolic heart failure with preoperative EF 40-45% followed by EF of 50% on transthoracic echocardiogram May 03, mild mitral valve regurgitation, 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 The patient was seen in follow-up today 06/06/2020 at his bedside on the medical surgical unit. He is sitting up to the bedside chair, is awake, alert and oriented 3 and is in no acute distress. The patient presented to the hospital yesterday 06/05/2020 with complaints of dyspnea, although denies any recent fever, chills or productive cough. This morning he reports that his shortness of breath has improved and he feels much better. Oxygen saturations are 97% on room air and he is achieving 1000 mL on his incentive spirometry. He remains afebrile and his laboratory results are pending this morning. Hemoglobin yesterday was 6.1 and he did receive 1 unit of PRBC transfusion. Grimm catheter remains in place for urinary retention which is being followed by urology. Wound VAC remains in place as ordered and he follows in the wound healing center. A repeat chest x-ray was completed this morning and the report shows diffuse pleural rectum or changes, underlying COPD suspected, and correlation for CHF versus multifocal pneumonia. A 2-D echocardiogram was completed yesterday which shows an overall left ventricular systolic function to be mild to moderately impaired with an ejection fraction between 40-45%, and septal wall motion delayed and consistent with prior cardiac surgery. Antibiotics are in place and are being followed and managed by infectious disease. Objective - Vital Signs Vital signs: Vital Signs Temp 98.0 F 06/06/20 07:00 Pulse 69 06/06/20 07:00 Resp 16 06/06/20 07:00 BP 102/63 06/06/20 07:00 Pulse Ox 97 06/06/20 07:00 Intake & Output 06/05/20 06/06/20 06/06/20 18:59 06:59 18:59 Intake Total 710 250 Output Total 500 1600 Balance 210 -1350 Weight 79 kg Intake: Intake, IV Titration 250 Amount Vancomycin 1,500 mg In 250 Sodium Chloride 0.9% 250 ml @ 125 mls/hr IVPB Q16H [facility] Rx#:[id number] Oral 400 Blood Product 310 Rc As-1 Unit 310 [id number] Output: Urine 500 1600 Other: Voiding Method Indwelling Catheter Indwelling Catheter - Constitutional General appearance: Present: average body habitus, cooperative, no acute distress - EENT Eyes: Present: PERRLA, normal appearance. Absent: scleral icterus ENT: Present: hearing grossly normal - Neck Details: Neck is supple, no JVD, no lymphadenopathy. - Respiratory Details: Lungs sounds essentially clear to his bilateral upper lobes, diminished to his bilateral bases. No wheezes, rhonchi or crackles. Respirations are symmetrical and nonlabored. Oxygen saturation is 97% on room air. Achieving 1000 mL on his incentive spirometry. - Cardiovascular Details: Regular rhythm and rate. S1 and S2 present, negative for S3, gallop or murmur. Sternum is stable. No edema present. - Gastrointestinal Gastrointestinal Comment(s): Abdomen is soft, nontender and nondistended. Active bowel sounds present in all 4 abdominal quadrants. No guarding or rigidity. No organomegaly appreciated. - Genitourinary Genitourinary Comment(s): Grimm catheter for accurate I&O and urinary retention. Adequate urine output, draining clear jm urine. - Integumentary Integumentary Comment(s): Skin is warm and dry. No clubbing or cyanosis is present. Wound VAC dressing in place to his mid sternal incision. - Neurologic Neurologic: Present: CNII-XII intact - Musculoskeletal Musculoskeletal: Present: gait normal, strength equal bilaterally - Psychiatric Psychiatric: Present: A&O x's 3, appropriate affect, intact judgment & insight - Allied health notes Allied health notes reviewed: nursing - Labs CBC & Chem 7: 06/05/20 06:39 06/05/20 06:39 Labs: Abnormal Lab Results - Last 24 Hours (Table) 06/04/20 06/05/20 06/05/20 Range/Units 06:36 06:36 06:39 Retic Count 3.9 H (0.5-2.0) % BUN 31.0 H (9.0-27.0) mg/dL BUN/Creatinine Ratio 31.00 H (12.00-20.00) Ratio Calcium 7.8 L (8.7-10.3) mg/dL Iron 8 L (65-175) ug/dL % Saturation 3.33 L (15.00-50.00) Total Protein 4.6 L (6.2-8.2) g/dL Albumin 2.70 L (3.80-4.90) g/dL Albumin/Globulin Ratio 1.42 L (1.60-3.17) g/dL Vitamin B12 962.0 H (200.0-944.0) pg/mL Crossmatch 06/05/20 Range/Units 08:34 Retic Count (0.5-2.0) % BUN (9.0-27.0) mg/dL BUN/Creatinine Ratio (12.00-20.00) Ratio Calcium (8.7-10.3) mg/dL Iron (65-175) ug/dL % Saturation (15.00-50.00) Total Protein (6.2-8.2) g/dL Albumin (3.80-4.90) g/dL Albumin/Globulin Ratio (1.60-3.17) g/dL Vitamin B12 (200.0-944.0) pg/mL Crossmatch See Detail Microbiology - Last 24 Hours (Table) 06/04/20 08:35 Blood Culture - Preliminary Blood No Growth after 24 hours - Imaging and Cardiology Chest x-ray: report reviewed, image reviewed Assessment and Plan Assessment: 1. Dyspnea, afebrile, no leukocytosis, pro-calcitonin 0.05, lactic acid 1.3 2. Superficial sternal incision infection, surface culture positive for staph epi, deep wound culture negative, current wound VAC dressing in place 3. History of coronary artery disease, status post remote inferior wall DE with RCA stent, status post four-vessel CABG 04/15/2020, with postoperative acute blood loss anemia status post transfusion, atrial fibrillation/flutter status post clip ligation of the left atrial appendage and successful cardioversion, u rinary retention with Grimm catheter replacement, Serratia UTI, left pleural effusion with unsuccessful attempted thoracentesis 4. Mild to moderate left ventricular dysfunction, chronic diastolic heart failure, preoperative EF 40-45%, EF 50% on TTE 05/03 5. Mild mitral valve regurgitation 6. Moderately dilated ascending aorta 4.2 cm 7. History of hypertension, currently borderline hypotensive 8. Hyperlipidemia 9. Previous tobacco dependence 10. Remote history of pneumonia 11. BPH with continued urinary retention followed by urology 12. Family history of premature coronary artery disease 13. Acute on chronic macrocytic anemia this admission Plan: 1. Continue wound VAC to his mid sternal incision, change Friday and Friday. 2. Antibiotic management per Dr. Chris from infectious disease. 3. Continue to optimize medical management with aspirin, statin and beta branden. 4. Continue GI and DVT prophylaxis. 5. Encourage use of his incentive spirometry 10 times every hour while awake. 6. Continue to monitor daily labs and chest x-rays. 7. Increase activity as tolerated, out of bed for all meals. 8. Continue to monitor strict in accurate I's and O's. Monitor daily weights. 9. Continue postoperative CABG discharge instructions. Continue to remind postoperative lifting restrictions for a total of 12 weeks post operative. 10. Medical management and other comorbidities per primary care service. 11. Grimm catheter and urinary retention management per urology recommendations. 12. More recommendations to follow based on patient's clinical course. Time with Patient: Greater than 30
[2020-06-06] MEDS: POTASSIUM CHLORIDE ER 20 MEQ TAB.ER PO SCH (09:18)
[2020-06-06] MEDS: guaiFENesin 600 MG TABLET.ER PO SCH ×2 (09:18→21:41)
[2020-06-06] MEDS: FINASTERIDE 5 MG TAB PO SCH (09:19)
[2020-06-06] MEDS: MULTIVITAMINS, THERA 1 EACH TAB PO SCH (09:19)
[2020-06-06] MEDS: MIDODRINE 5 MG TAB PO SCH ×3 (09:19→17:25)
[2020-06-06] MEDS: ASCORBIC ACID 500 MG TAB PO SCH ×2 (09:19→17:25)
[2020-06-06] MEDS: METOPROLOL TARTRATE 12.5 MG TAB PO SCH ×2 (09:19→21:41)
[2020-06-06] MEDS: ASPIRIN 325 MG TAB PO SCH (09:20)
[2020-06-06] MEDS: TAMSULOSIN 0.4 MG CAP.ER.24H PO SCH (09:20)
[2020-06-06] MEDS: FERROUS SULFATE 325 MG TAB PO SCH ×2 (09:20→17:25)
[2020-06-06] MEDS: PANTOPRAZOLE 40 MG TABLET PO SCH (09:20)
[2020-06-06 09:28] LABS: Poikilocytosis (M) Present; Target Cells Present
[2020-06-06] MEDS: FUROSEMIDE 10 MG/ML 4 ML VIAL IV SCH (09:31)
[2020-06-06] MEDS: HEPARIN SODIUM,PORCINE 5,000 UNIT/ML 1 ML VIAL SQ SCH ×2 (09:32→21:40)
[2020-06-06] MEDS: VANCOMYCIN 1,500 MG in SODIUM CHLORIDE 0.9% 250 ML IVPB SCH (09:33)
[2020-06-06 10:03] LABS: Free Kappa Lt Chain Qnt, Serum 5.68 mg/dL (0.33-1.94)
--- NOTE | 2020-06-06 11:30 | P.PN ---
Subjective Progress Note Date: 06/06/20 Principal diagnosis: anemia In follow-up today patient states he does not feel much better than on admission, persistent complaints of generalized fatigue, shortness of breath on exertion, weakness. He currently is denying any bleeding. He is status post 1 unit of packed red blood cells Objective - Vital Signs Vital signs: Vital Signs Temp 98.0 F 06/06/20 07:00 Pulse 69 06/06/20 07:00 Resp 14 06/06/20 09:10 BP 102/63 06/06/20 07:00 Pulse Ox 97 06/06/20 07:00 Intake & Output 06/05/20 06/06/20 06/06/20 18:59 06:59 18:59 Intake Total 710 250 240 Output Total 500 1600 1300 Balance 210 -1350 -1060 Weight 79 kg Intake: Intake, IV Titration 250 Amount Vancomycin 1,500 mg In 250 Sodium Chloride 0.9% 250 ml @ 125 mls/hr IVPB Q16H [facility] Rx#:[id number] Oral 400 240 Blood Product 310 Rc As-1 Unit 310 [id number] Output: Urine 500 1600 1300 Other: Voiding Method Indwelling Catheter Indwelling Catheter Indwelling Catheter - Constitutional General appearance: Present: average body habitus, cooperative, no acute distress - EENT Eyes: Present: anicteric sclerae, EOMI ENT: Present: hearing grossly normal - Respiratory Details: respirations are unlabored at rest - Musculoskeletal Musculoskeletal: Present: generalized weakness - Psychiatric Psychiatric: Present: A&O x's 3, appropriate affect, intact judgment & insight - Labs CBC & Chem 7: 06/06/20 07:51 06/05/20 06:39 Labs: Abnormal Lab Results - Last 24 Hours (Table) 06/04/20 06/04/20 06/05/20 Range/Units 06:36 06:36 08:34 RBC (4.30-5.90) m/uL Hgb (13.0-17.5) gm/dL Hct (39.0-53.0) % MCV (80.0-100.0) fL MCHC (31.0-37.0) g/dL RDW (11.5-15.5) % Eosinophils # (0-0.7) k/uL Haptoglobin 263.0 H (31.2-198.0) mg/dL Iron 8 L (65-175) ug/dL % Saturation 3.33 L (15.00-50.00) Vitamin B12 962.0 H (200.0-944.0) pg/mL Free [place] LC, Quant 5.68 H (0.33-1.94) mg/dL Free Lambda LC, Quant 4.66 H (0.57-2.63) mg/dL Crossmatch See Detail 06/06/20 Range/Units 07:51 RBC 2.33 L (4.30-5.90) m/uL Hgb 7.1 L (13.0-17.5) gm/dL Hct 23.8 L (39.0-53.0) % MCV 102.2 H (80.0-100.0) fL MCHC 29.9 L (31.0-37.0) g/dL RDW 18.9 H (11.5-15.5) % Eosinophils # 1.4 H (0-0.7) k/uL Haptoglobin (31.2-198.0) mg/dL Iron (65-175) ug/dL % Saturation (15.00-50.00) Vitamin B12 (200.0-944.0) pg/mL Free [place] LC, Quant (0.33-1.94) mg/dL Free Lambda LC, Quant (0.57-2.63) mg/dL Crossmatch Microbiology - Last 24 Hours (Table) 06/04/20 08:35 Blood Culture - Preliminary Blood No Growth after 48 hours Assessment and Plan (1) Macrocytic anemia Narrative/Plan: Patient anemia was mild on labs preop, more notable and persistent postoperatively. Haptoglobin was elevated, suggestive of some hemolysis, may be from recent surgery. No other evidence of ongoing hemolysis and the lab work. Continue to monitor CBC daily Patient has low iron and saturation with a normal ferritin, could be related to transfusions patient has had within the last month. With wound VAC and active wo und care, would hold off on any parenteral iron infusions at this time. Transfuse to keep hemoglobin 7 or higher unless patient is symptomatic at this time. Some labs still pending. Will continue to follow with patient. 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
--- NOTE | 2020-06-06 11:36 | P.PN ---
Subjective Progress Note Date: 06/06/20 Subjective 79-year-old male patient of Dr. guallpa with long-standing history of CAD post ID with history of PCI and stent placement of the right coronary artery disease over 10 years ago who is known to have history of hypertension hyperlipidemia and previous history of tobacco dependency patient has been doing natural management for many years started noticing significant shortness of breath and decrease endurance when attempted to walk and ambulate was seen Dr. FRANK aptel and end up going for stress test showed moderate area of infarct ischemic change patient ended up going for heart cath on 03/09/2020 finding was consistent with 80 percentile blockage of the LAD, 70% blockage in the mid LAD, 90% blockage of the circumflex and 95% blockage of the RCA, underwent 4 vessel bypass surgery on 2019 and was sent to the ICU on mechanical ventilation. Postoperatively e xperienced atrial fibrillation/atrial flutter , also underwent synchronized cardioversion with return to normal sinus rhythm. Patient also received 1 unit of packed RBC while at [facility] for acute blood loss anemia. He was also found to have urinary retention for which he was placed on Soria catheter and was sent to inpatient rehab at [facility]. Patient was given iron infusion at [facility] and 2 attempts were made to remove Soria catheter without any success. Patient is started on Flomax and proscar to help with urine retention. Patient was noted to be short of breath at inpatient rehab on 04/25 sec t o left pleural effusion, developed worsening shortness of breath requiring brief stay at ICU. Chest CT was obtained that showed an congestive heart failure with mild infiltrate with failed attempt at thoracentesis with minimal output. The echo suggested an EF of 50% Urine and blood culture was was positive for Serratia and patient was placed on cefepime by Dr. Hightower. On 05/06 was transferred back to [facility] for superficial sternal incision infection positive for staph epi. Patient completed 4 weeks of IV daptomycin and follows up with wound care under Dr. Hightower as outpatient. Patient wears wound VAC gets changed every Friday and Friday and in the wound Center every Friday. Since patient continued to have urinary retention with failed attempts to remove it patient was discharged on Soria catheter with outpatient follow-up with urology. Patient has upcoming appointment on 06/06 for possible urodynamic studies. He was doing well until a few days ago when he was unable to walk to his car without getting shortness of breath. Patient has seen his chief of field operations Dr. Knowles and Dr. Little areas bowel outpatient within the last 1 week and was told he is doing well. Some of his medications were adjusted as outpatient. Patient endorses cough with mild phlegm production. He denies any chest pain or increased drainage from the wound. He follows every week at Wound Center and has been told his sternal incision is healing well. Patient denies any change in bowel movements or blood in the stools. He denies any nausea or vomiting. On evaluation in the ER patient was found to have a temp of 97.8 pulse 85 respiratory rate 16 blood pressure 109/58 oxygen saturation 91% on 2 L of oxygen. Patient does not wear oxygen at home. On evaluation of his last patient continues to have a low hemoglobin 7.1, MCV 103.5 platelet 455 ESR has worsened since the beginning of May to 102, CRP increased from 25-139. ProBNP is 2560. Albumin is 2.8 pro-calcitonin ordered. Legionella antigen ordered. Mycoplasma IgM ordered COVID 19 pending. Continue broad-spectrum antibiotic with vancomycin and cefepime. Infectious disease consult placed. Cardiothoracic surgery consulted. Lasix initiated at 40 IV twice a day continue metolazone and 5 mg by mouth daily. 06/05: Patient was evaluated today noted to be sitting in bedside chair. Patient still has complaints of mild shortness of breath, denies any chest pain. Hemoglobin did drop today to 6.1, 1 unit PRBCs ordered. Will check fecal occult blood. Urology has been consulted for his urinary retention. Repeat chest x- ray shows cardiomegaly and prominent pulmonary vascular markings scattered infiltrate and possible pneumonia although his Pro-calcitonin was 0.05, he continues on cefepime and vancomycin. Wound VAC is scheduled to be changed today, infectious disease is on consult. 06/06: patient seen resting in chair this morning. patient received 1 unit of packed RBCs yesterday hemoglobin is 7.1 today. vital signs are stable, patient remains afebrile pulse rate 69, respirations 14, blood pressure 102/63, pulse ox 97% on room air. chest x-ray showed diffuse pleural parenchymal changes are stable superimposed on background of COPD. code in 19 testing was negative. - Exam - Constitutional General appearance: cooperative, no acute distress - EENT Eyes: anicteric sclerae, pupil equal and round , normal appearance ENT: hearing grossly normal - Neck Neck: no lymphadenopathy, normal ROM, JVP absent - Respiratory Respiratory: bilateral: crackles with diminished air entry at bases. - Cardiovascular Rhythm: regular Heart sounds: normal: S1, S2 Abnormal Heart Sounds: no systolic murmur, no diastolic murmur. - Gastrointestinal General gastrointestinal: normal bowel sounds, soft, non tender, soria catheter remains in place - Integumentary Integumentary: no rash, sternal wound packed with dry dressing and wound vac - Neurologic Neurologic: No gross motor or sensory deficit located no abnormality - Musculoskeletal Musculoskeletal: gait normal, strength equal bilaterally - Psychiatric Psychiatric: A&O x's 3, appropriate affect Objective - Vital Signs Vital signs: Vital Signs Temp 98.0 F 06/06/20 07:00 Pulse 69 06/06/20 07:00 Resp 16 06/06/20 07:00 BP 102/63 06/06/20 07:00 Pulse Ox 97 06/06/20 07:00 Intake & Output 06/05/20 06/06/20 06/06/20 18:59 06:59 18:59 Intake Total 710 250 Output Total 500 1600 Balance 210 -1350 Weight 79 kg Intake: Intake, IV Titration 250 Amount Vancomycin 1,500 mg In 250 Sodium Chloride 0.9% 250 ml @ 125 mls/hr IVPB Q16H [facility] Rx#:[id number] Oral 400 Blood Product 310 Rc As-1 Unit 310 [id number] Output: Urine 500 1600 Other: Voiding Method Indwelling Catheter Indwelling Catheter - Labs CBC & Chem 7: 06/06/20 07:51 06/05/20 06:39 Labs: Abnormal Lab Results - Last 24 Hours (Table) 06/04/20 06/05/20 06/05/20 Range/Units 06:36 06:36 06:39 Retic Count 3.9 H (0.5-2.0) % BUN 31.0 H (9.0-27.0) mg/dL BUN/Creatinine Ratio 31.00 H (12.00-20.00) Ratio Calcium 7.8 L (8.7-10.3) mg/dL Iron 8 L (65-175) ug/dL % Saturation 3.33 L (15.00-50.00) Total Protein 4.6 L (6.2-8.2) g/dL Albumin 2.70 L (3.80-4.90) g/dL Albumin/Globulin Ratio 1.42 L (1.60-3.17) g/dL Vitamin B12 962.0 H (200.0-944.0) pg/mL Crossmatch 06/05/20 Range/Units 08:34 Retic Count (0.5-2.0) % BUN (9.0-27.0) mg/dL BUN/Creatinine Ratio (12.00-20.00) Ratio Calcium (8.7-10.3) mg/dL Iron (65-175) ug/dL % Saturation (15.00-50.00) Total Protein (6.2-8.2) g/dL Albumin (3.80-4.90) g/dL Albumin/Globulin Ratio (1.60-3.17) g/dL Vitamin B12 (200.0-944.0) pg/mL Crossmatch See Detail Microbiology - Last 24 Hours (Table) 06/04/20 08:35 Blood Culture - Preliminary Blood No Growth after 24 hours Assessment and Plan Assessment: Plan: 1 acute hypoxic respiratory failure a candidate to acute diastolic congestive heart failure with possible healthcare associated pneumonia. continue DuoNeb as needed for shortness of breath. Sputum culture. Lasix 40 IV twice a day. P Jovana russell. Cardiothoracic surgery consulted. Will switch antibiotic to cefepime and vancomycin for broader coverage. Infectious disease consulted. echo with EF 50 % with [id number] left ventricle dysfunction chronic systolic heart failure mild mitral valve disease regurgitation moderately dilated ascending aorta at 4.0 cm on 05/03 . mucinex 600 q12 . I and O monitoring, daily weight 2 Post surgical superficial sternal infection status post I and D, wears wound vac, changed every fri, fri and friday. Wound culture was staph epi at [facility], no growth at [facility] . completed daptomycin as outpatient 3. CAUTI bacteremia secondary to Serratia. Completed cefepime as outpatient. Continues to have Soria catheter for urinary retention 4. H/o triple vessel coronary disease s/p remote inferior wall ID with RCA stent, post 4 vessel coronary artery bypass grafting with KEANE to the LAD, left radial arterial graft to the OM, SVG to the PDA, SVG to the diagonal with left radial artery harvest along with left lower extremity endoscopy Vein harvest on 04/13. On aspirin 325 mg, Lipitor 40 mg by mouth daily 5. Postop atrial flutter/ atrial fibrillation status post clip ligation of the left atrial appendage and cardioversion. Oral amiodarone was tapered off but it appears to be on patient's list. We will confirm with pharmacy on Lopressor. Patient is not on eliquis , which was discontinued during last was 6. 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 on Flomax and Finasteride 5 mg by mouth daily. Follows up with urology as outpatient 7. Acute on chronic anemia with bone marrow suppression status post multiple transfusions during last visit and iron infusion at [facility]. Continue daily CBC. Transfuse if hemoglobin less than 7. Continue iron supplementation daily patient needs to see an oncologist for assessment of anemia. Oncology consult placed 8. Systolic congestive heart failure with ejection fraction 50% with [id number] left ventricular dysfunction. Last echo obtained on 05/03 9. Hypertension. Continue Lopressor. 10. Hyperlipidemia: atorvastatin 40 mg daily resume medication. 11. History of osteoarthritis post right total knee arthroplasty. 12. Hyperglycemia. NovoLog scale. 13. DVT prophylaxis: heparin q 12 14. GI prophylaxis: Pantoprazole 40 by mouth with breakfast CODE STATUS: Full code. Patient will be admitted for minimum of 2 night stay The above impression and plan of care have been discussed and directed by signing physician. Graciela Pinon nurse practitioner acting as scribe for signing physician.
--- NOTE | 2020-06-06 11:50 | P.PN ---
Subjective Progress Note Date: 06/06/20 CHIEF COMPLAINT: afib HISTORY OF PRESENT ILLNESS: Patient examined at the bedside. Patient denies chest pain. Denies shortness of breath. He remains on IV lasix. Fluid balance over the last 24 hours is -1140cc. Creatinine 1.0. Echocardiogram completed reveals ejection fraction between 40 and 45%. Vital signs stable. Hemoglobin 7.1. He received 1 unit RBC yesterday. PHYSICAL EXAM: VITAL SIGNS: Reviewed. GENERAL: Well-developed in no acute distress. NECK: Supple. No JVD or thyromegaly LUNGS: Respirations even and unlabored. Lungs essentially clear to auscultation bilaterally. HEART: Regular rate and rhythm. S1 and S2 heard. Wound vac to sternal region noted. EXTREMITIES: Normal range of motion. No clubbing or cyanosis. Peripheral pulses intact. No lower extremity edema ASSESSMENT: Shortness of breath secondary to anemia and mild heart failure Coronary artery disease s/p bypass grafting Paroxysmal atrial fibrillation s/p cardioversion, not on anti-coagulation secondary to anemia. Maintaining sinus mechanism. Anemia Hypertension with recent episodes of hypotension Dyslipidemia Acute on chronic systolic heart failure, EF 40-45% Increase weakness and fatigue History of BPH with urinary retention Sternal wound infection with wound vac in place PLAN: Discontinue IV lasix Begin oral lasix of 20mg BID Accurate I&O Daily weights Further recommendations pending Nurse practitioner note has been reviewed by physician. Signing provider agrees with the documented findings, assessment, and plan of care. Objective - Vital Signs Vital signs: Vital Signs Temp 98.0 F 06/06/20 07:00 Pulse 69 06/06/20 07:00 Resp 14 06/06/20 09:10 BP 102/63 06/06/20 07:00 Pulse Ox 97 06/06/20 07:00 Intake & Output 06/05/20 06/06/20 06/06/20 18:59 06:59 18:59 Intake Total 710 250 240 Output Total 500 1600 1300 Balance 210 -1350 -1060 Weight 79 kg Intake: Intake, IV Titration 250 Amount Vancomycin 1,500 mg In 250 Sodium Chloride 0.9% 250 ml @ 125 mls/hr IVPB Q16H [facility] Rx#:[id number] Oral 400 240 Blood Product 310 Rc As-1 Unit 310 [id number] Output: Urine 500 1600 1300 Other: Voiding Method Indwelling Catheter Indwelling Catheter Indwelling Catheter - Labs CBC & Chem 7: 06/06/20 07:51 06/05/20 06:39 Labs: Abnormal Lab Results - Last 24 Hours (Table) 06/04/20 06/04/20 06/05/20 Range/Units 06:36 06:36 08:34 RBC (4.30-5.90) m/uL Hgb (13.0-17.5) gm/dL Hct (39.0-53.0) % MCV (80.0-100.0) fL MCHC (31.0-37.0) g/dL RDW (11.5-15.5) % Eosinophils # (0-0.7) k/uL Haptoglobin 263.0 H (31.2-198.0) mg/dL Iron 8 L (65-175) ug/dL % Saturation 3.33 L (15.00-50.00) Vitamin B12 962.0 H (200.0-944.0) pg/mL Free Trosky LC, Quant 5.68 H (0.33-1.94) mg/dL Free Lambda LC, Quant 4.66 H (0.57-2.63) mg/dL Crossmatch See Detail 06/06/20 Range/Units 07:51 RBC 2.33 L (4.30-5.90) m/uL Hgb 7.1 L (13.0-17.5) gm/dL Hct 23.8 L (39.0-53.0) % MCV 102.2 H (80.0-100.0) fL MCHC 29.9 L (31.0-37.0) g/dL RDW 18.9 H (11.5-15.5) % Eosinophils # 1.4 H (0-0.7) k/uL Haptoglobin (31.2-198.0) mg/dL Iron (65-175) ug/dL % Saturation (15.00-50.00) Vitamin B12 (200.0-944.0) pg/mL Free Trosky LC, Quant (0.33-1.94) mg/dL Free Lambda LC, Quant (0.57-2.63) mg/dL Crossmatch Microbiology - Last 24 Hours (Table) 06/04/20 08:35 Blood Culture - Preliminary Blood No Growth after 48 hours
[2020-06-06] MEDS: IPRATROPIUM-ALBUTEROL 3 ML NEB INHALATION PRN ×2 (11:52→19:46)
[2020-06-06] MEDS: CEFEPIME 2 GM in SODIUM CHLORIDE 0.9% 100 ML IVPB SCH ×2 (12:28→21:33)
[2020-06-06 12:33] LABS: African American GFR (CKD) 83.2 (60.0-200.0); Albumin 2.8 g/dL (3.80-4.90); Albumin/Globulin Ratio 1.33 (1.60-3.17); Anion Gap 8.7 mmol/L (4.00-12.00); Calcium 7.9 mg/dL (8.7-10.3); Carbon Dioxide 27.3 mmol/L (21.6-31.8); Globulin 2.1 g/dL (1.6-3.3); Non-African American GFR(CKD) 71.8 (60.0-200.0); Potassium 4.9 mmol/L (3.5-5.5); Total Bilirubin 0.5 mg/dL (0.2-1.2); Total Protein 4.9 g/dL (6.2-8.2)
[2020-06-06 13:29] LABS: Protein, Total 5.6 g/dL (6.2-8.2)
[2020-06-06] MEDS: FUROSEMIDE 20 MG TAB PO SCH (17:25)
[2020-06-06] MEDS: SENNOSIDES-DOCUSATE SODIUM 1 EACH TAB PO SCH ×2 (21:41→21:42)
[2020-06-06] MEDS: ATORVASTATIN 40 MG TAB PO SCH (21:41)
--- NOTE | 2020-06-06 22:57 | CONS ---
CONSULTATION PULMONARY/CRITICAL CARE CONSULTATION: DATE OF CONSULTATION: 06/06/2020 This is a 79-year-old male who presented to the emergency department on June 04 at 0604 complaining of shortness of breath. The shortness of breath developed overnight. Prior to that he was feeling very weak and fatigued. The patient did notice some slight lower leg swelling. He did have bypass grafting done by Dr. Olivo back on April 14 and subsequent to that developed some sternal wound infection, wound dehiscence requiring wound V.A.C. placement and was eventually discharged to inpatient rehab at [facility]. The patient denied any fever or chills. He did have some shortness of breath, as mentioned. He was seen in the emergency room. He states he was not given a diagnosis. His x-ray to me looks like a little bit of fluid overload and also possible pneumonia. He denied any productive cough. There are no headaches. Again, no fever or chills. He denied any nausea, vomiting, diarrhea or abdominal pain. He also denied any history of any genitourinary complaints. He has a history of septic shock secondary to serratia UTI, a sternal wound infection, treated here at [facility], CAD with previous inferior wall [place], with previous stenting of his RCA and subsequent 4- vessel bypass as mentioned on April 14, atrial fibrillation postoperatively, obstructive uropathy with urinary retention, CHF, mildly dilated ascending aorta, hypertension, hyperlipidemia and bilateral pleural effusions. Currently the patient is feeling much better. He does state that after a breathing treatment he was able to cough up some phlegm which he did provide to the laboratory for analysis. CURRENT MEDICATIONS: His current medications include Tylenol, vitamin C, iron, multiple vitamins, Protonix, Senna, Maxipime and daptomycin, which I am assuming he is getting at home, Cordarone, aspirin, Lipitor, Tessalon Perles, Proscar, Lasix, metoprolol, midodrine, sublingual nitroglycerin tablets, Flomax and Zaroxolyn. ALLERGIES: CODEINE. MEDICAL HISTORY: Medical history includes CAD with recent bypass grafting in April, hyperlipidemia, hypertension, myocardial infarction, DJD, serratia UTI, sepsis, as well as a sternal wound infection. SURGICAL HISTORY: Surgical history includes bypass grafting, heart catheterization with stent, hernia repair, tonsillectomy, right knee replacement, bilateral cataract surgery, previous bare metal stent in the RCA in February 2002, and his 4-vessel bypass grafting as mentioned in April of this year. SOCIAL HISTORY: Positive for previous tobacco use. He denies any alcohol use or illicit drug use. FAMILY HISTORY: Positive for father with cancer and mother with CAD and cancer. REVIEW OF SYSTEMS: CONSTITUTIONAL: Fatigue and weakness. NEUROLOGIC: Negative. HEENT: Negative. CARDIOVASCULAR: Negative. PULMONARY: Shortness of breath. GI: Negative. : Negative. RHEUMATOLOGIC: Negative. IMMUNOLOGIC: Negative. ENDOCRINOLOGIC: Negative. DERMATOLOGIC: Negative. PHYSICAL EXAMINATION: VITAL SIGNS: Current vital signs are reviewed. Temperature is 98.1, heart rate 82, respiratory rate 20, blood pressure 94/46, mean 62, room-air saturation 94%. GENERAL APPEARANCE: He appears in no acute distress. HEENT: Examination is grossly unremarkable. Nasal oxygen noted. NECK: Supple. Full range of motion. No adenopathy. Neck veins are flat. CARDIOVASCULAR: Cardiovascular examination reveals regular rhythm and rate. Heart sounds are distant. S1, S2 normal. Heart rate 80. LUNGS: Lungs reveal mostly clear breath sounds, a few scattered rhonchi. No wheezes. Minimal crackles. ABDOMEN: Soft. Bowel sounds are heard. EXTREMITIES: Intact. No cyanosis, clubbing or edema. SKIN: Without rash. NEUROLOGIC: Neurologic examination is nonfocal. LABS/IMAGING: Reviewed. White count 7.5, hemoglobin 7.1, up from 6.1, hematocrit 23.8, platelet count 398,000. Sodium 137, potassium 4.9, chloride 101, CO2 27. Anion gap is 8.7. BUN and creatinine were 26 and 1. The rest of the labs look pretty good. Procalcitonin level was 0.05. Coronavirus was not detected. Urinary Legionella antigen was negative. Microbiologic studies are negative. Blood is negative. Sputum is pending. The patient had a chest x-ray on several occasions. Chest x-ray is consistent with underlying COPD complicated by either fluid overload or multifocal pneumonia. CURRENT MEDICATIONS: Current medications are reviewed. The patient is on Tylenol, ascorbic acid, aspirin, Lipitor, cefepime, iron, Proscar, Lasix, Mucinex, DuoNeb, metoprolol, midodrine, multiple vitamins, nitroglycerin, Zofran, Protonix, Senna, Flomax and vancomycin. ASSESSMENT: 1. Shortness of breath, likely multifactorial, in part related to underlying pneumonia as well as fluid overload/congestive heart failure. 2. History of recent four-vessel bypass grafting in April 2020. 3. Postoperative sternal wound infection with sternal dehiscence. 4. History of coronary artery disease. 5. History of hyperlipidemia. 6. History of essential hypertension. 7. Prior history of myocardial infarction. 8. Degenerative joint disease. 9. Serratia marcescens urinary tract infection/sepsis. 10.Previous heart catheterization with stent. 11.Status post right knee replacement. 12.History of bilateral cataract surgery. 13.Prior history of bare metal stent placed in the right coronary artery in February 2002. PLAN: Currently the patient's medications are reviewed. Will make sure he is on good bronchodilators. Additional recommendations and suggestions are forthcoming. He is currently on good antibiotics in the form of vancomycin and cefepime. The DuoNebs do seem to be helping him cough up phlegm. We will continue to follow. All in all, Anatoly does not look horrible. MMODL / IJN: [id number] /
[2020-06-06] MEDS ORDERED: VANCOMYCIN TROUGH DUE 1 EACH MISC MISCELLANE ONE (23:00)
--- NOTE | 2020-06-07 00:57 | PN ---
PROGRESS NOTE DATE OF SERVICE: 06/06/2020 REASON FOR FOLLOWUP: Sternal wound infection. INTERVAL HISTORY: Patient is currently afebrile. The patient is breathing comfortably. Denies having any chest pain. Significant shortness of breath. No nausea. No vomiting. No abdominal pain or diarrhea. PHYSICAL EXAMINATION: Blood pressure 98/53 with a pulse of 73, temperature 98.1. He is 95% on 2 L nasal cannula. General description is an elderly male lying in bed in no distress. Respiratory system: Unlabored breathing, clear to auscultation anteriorly. Heart S1, S2 regular rate and rhythm. Abdomen soft, no tenderness. Sternal wound is currently covered with wound VAC. LABS: Hemoglobin 7.1, white count 7.5, BUN of 26, creatinine 1.0. Sputum culture pending. Blood culture negative. DIAGNOSTIC IMPRESSION AND PLAN: Patient with sternal wound infection with recent debridement. Those cultures were positive for Staph epi. The patient is currently covered with Daptomycin. To continue local care with wound VAC and monitor clinical course closely. MMODL / IJN: [id number] /
[2020-06-07] MEDS: VANCOMYCIN 1,500 MG in SODIUM CHLORIDE 0.9% 250 ML IVPB SCH ×2 (01:50→16:37)
[2020-06-07 05:19] LABS: Mycoplasma IgG Antibody (EIA) 2.37 INDEX (<=0.90); Mycoplasma IgM Antibody 0.01 INDEX (<=0.90)
[2020-06-07 07:14] LABS: Methylmalonic Acid 0.31 umol/L (<0.40)
--- NOTE | 2020-06-07 07:27 | XR ---
EXAMINATION TYPE: XR chest 2V DATE OF EXAM: 06/07/2020 COMPARISON: 06/06/2020 TECHNIQUE: PA and lateral views submitted. HISTORY: Post CABG FINDINGS: Heart enlarged and underlying COPD suspected. There is a PICC line seen with the tip near the level o f the left subclavian vein. Postoperative changes are seen. Atherosclerotic change of the aorta. Diff use interstitial pattern with bilateral infiltrate and small effusion. Hypertrophic and degenerative change of the spine. IMPRESSION: 1. Diffuse persistent pleural parenchymal changes most suggestive of CHF. Underlying infiltrate not e xcluded. 2. Correlate for COPD.
[2020-06-07] MEDS: ASCORBIC ACID 500 MG TAB PO SCH ×2 (08:24→16:29)
[2020-06-07] MEDS: ASPIRIN 325 MG TAB PO SCH (08:24)
[2020-06-07] MEDS: FINASTERIDE 5 MG TAB PO SCH (08:24)
[2020-06-07] MEDS: METOPROLOL TARTRATE 12.5 MG TAB PO SCH ×2 (08:24→20:26)
[2020-06-07] MEDS: MULTIVITAMINS, THERA 1 EACH TAB PO SCH (08:24)
[2020-06-07] MEDS: PANTOPRAZOLE 40 MG TABLET PO SCH (08:25)
[2020-06-07] MEDS: HEPARIN SODIUM,PORCINE 5,000 UNIT/ML 1 ML VIAL SQ SCH ×2 (08:25→20:26)
[2020-06-07] MEDS: TAMSULOSIN 0.4 MG CAP.ER.24H PO SCH (08:25)
[2020-06-07] MEDS: guaiFENesin 600 MG TABLET.ER PO SCH ×2 (08:25→20:26)
[2020-06-07] MEDS: FUROSEMIDE 20 MG TAB PO SCH (08:25)
[2020-06-07] MEDS: FERROUS SULFATE 325 MG TAB PO SCH ×2 (08:25→16:29)
[2020-06-07] MEDS: MIDODRINE 5 MG TAB PO SCH ×3 (08:25→16:29)
[2020-06-07] MEDS: CEFEPIME 2 GM in SODIUM CHLORIDE 0.9% 100 ML IVPB SCH ×2 (08:59→20:06)
[2020-06-07] MEDS ORDERED: FUROSEMIDE 20 MG TAB PO ONE (09:00)
[2020-06-07] MEDS: IPRATROPIUM-ALBUTEROL 3 ML NEB INHALATION PRN (09:05)
[2020-06-07 09:11] LABS: Anisocytosis Slight; Basophils % (A) 0 %; Eosinophils # (A) 1.6 k/uL (0-0.7); Eosinophils % (A) 20 %; HCT 24.9 % (39.0-53.0); HGB 7.3 gm/dL (13.0-17.5); Hypochromasia Marked; Lymphocytes # (A) 1.4 k/uL (1.0-4.8); Lymphocytes % (A) 17 %; MCH 30.4 pg (25.0-35.0); MCHC 29.5 g/dL (31.0-37.0); MCV 103.3 fL (80.0-100.0); Macrocytosis Moderate; Mean Platelet Volume 9.5; Monocytes # (A) 0.4 k/uL (0-1.0); Monocytes % (A) 6 %; Neutrophils # (A) 4.5 k/uL (1.3-7.7); Neutrophils % (A) 56 %; Platelet Count 397 k/uL (150-450); RBC 2.41 m/uL (4.30-5.90); RDW 18.6 % (11.5-15.5); WBC 8.1 k/uL (3.8-10.6)
[2020-06-07] MEDS: AZITHROMYCIN 500 MG in SODIUM CHLORIDE 0.9% 250 ML IVPB SCH (09:31)
[2020-06-07 10:34] LABS: African American GFR (CKD) 83.2 (60.0-200.0); Albumin/Globulin Ratio 1.3 (1.60-3.17); Calcium 8.3 mg/dL (8.7-10.3); Globulin 2.3 g/dL (1.6-3.3); Non-African American GFR(CKD) 71.8 (60.0-200.0); Potassium 5.3 mmol/L (3.5-5.5); Total Bilirubin 0.5 mg/dL (0.3-1.2); Total Protein 5.3 g/dL (6.2-8.2)
[2020-06-07 10:56] LABS: Large Platelets Present
--- NOTE | 2020-06-07 10:58 | P.PN ---
Subjective Progress Note Date: 06/07/20 Principal diagnosis: Shortness of breath, afebrile, no leukocytosis, pro-calcitonin 0.05, lactic acid 1.3, likely from systolic heart failure; superficial sternal incision infection, surface culture positive for staph epi, deep wound culture negative, current wound VAC in place, acute on chronic anemia. Previous medical history of coronary artery disease, status post remote inferior wall NC with RCA stent, status post four-vessel CABG 04/15/2020, with postoperative acute blood loss anemia status post transfusion, atrial fibrillation/flutter status post clip ligation of the left atrial appendage and successful cardioversion, urinary retention with Grimm catheter replacement, Serratia UTI, left pleural effusion with unsuccessful attempted thoracentesis, mild to moderate left ventricular dysfunction, chronic systolic heart failure, preoperative EF 40-45%, EF 50% on TTE 05/03, TTE 06/05 EF 40-45%, mild mitral valve regurgitation, moderately dilated ascending aorta 4.2 cm, hypertension, hyperlipidemia, previous tobacco dependence, BPH with continued urinary retention followed by urology, family history of premature coronary artery disease Patient's currently sitting up in bed in no acute distress. Does continue to stay he feels better every day. Breathing treatments have allowed him to cough up some sputum which was sent for culture, pending. He remains afebrile without leukocytosis. Needs a lot of encouragement to get out of bed and stay out of bed, would prefer to lay in bed majority of the day. Lasix changed from IV to oral yesterday per cardiology. Remains on cefepime and vancomycin with azithromycin added by primary care. Hemoglobin 7.3 this morning, was 7.1 yesterday, 6.6 the day before with transfusion of 1 unit packed red blood cells at that time, patient to receive another unit of packed red blood cells this morning per primary care. No other new concerns. Objective - Vital Signs Vital signs: Vital Signs Temp 98.4 F 06/07/20 07:00 Pulse 83 06/07/20 09:18 Resp 18 06/07/20 08:00 BP 110/61 06/07/20 07:00 Pulse Ox 97 06/07/20 09:06 Intake & Output 06/06/20 06/07/20 06/07/20 18:59 06:59 18:59 Intake Total 790 430 200 Output Total 2600 1050 Balance -1810 -620 200 Weight 80.5 kg Intake: IV 80 Normal Saline 0.9% 80 Intake, IV Titration 350 350 Amount Cefepime 2 gm In Sodium 100 100 Chloride 0.9% 100 ml @ 25 mls/hr IVPB Q12HR [facility] Rx #:[id number] Vancomycin 1,500 mg In 250 250 Sodium Chloride 0.9% 250 ml @ 125 mls/hr IVPB Q16H [facility] Rx#:[id number] Oral 440 200 Output: Urine 2600 1050 Other: Voiding Method Indwelling Catheter Indwelling Catheter Indwelling Catheter # Voids 1 - Constitutional General appearance: Present: cooperative, no acute distress - Respiratory Details: Lungs sounds diminished bilaterally. Respirations even, nonlabored. Currently on 2 L nasal cannula with oxygen saturation 96%. Able to achieve 1500 mL on his incentive spirometry. Strong cough. - Cardiovascular Details: S1, S2 present. Regular rate and rhythm, sinus rhythm on telemetry. Sternum stable. Palpable peripheral pulses bilaterally. No edema present. No calf pain or tenderness noted. - Gastrointestinal Gastrointestinal Comment(s): Abdomen soft, nontender, nondistended. Active bowel sounds present 4 quadrants. Tolerating diet. - Genitourinary Genitourinary Comment(s): Grimm present draining clear, yellow urine. Output greater than 1 L overnight. - Integumentary Integumentary Comment(s): Skin is warm and dry with evidence of good perfusion. Anterior chest incision with wound VAC in place - Neurologic Neurologic: Present: CNII-XII intact - Musculoskeletal Musculoskeletal: Present: gait normal, strength equal bilaterally - Psychiatric Psychiatric: Present: A&O x's 3, appropriate affect, intact judgment & insight - Allied health notes Allied health notes reviewed: nursing - Labs CBC & Chem 7: 06/07/20 06:31 06/07/20 06:31 Labs: Abnormal Lab Results - Last 24 Hours (Table) 06/04/20 06/05/20 06/05/20 Range/Units 06:36 06:36 06:39 RBC (4.30-5.90) m/uL Hgb (13.0-17.5) gm/dL Hct (39.0-53.0) % MCV (80.0-100.0) fL MCHC (31.0-37.0) g/dL RDW (11.5-15.5) % Eosinophils # (0-0.7) k/uL BUN/Creatinine Ratio (12.00-20.00) Ratio Calcium (8.7-10.3) mg/dL AST (14-35) U/L ALT (10-49) U/L Total Protein (6.2-8.2) g/dL Total Protein (PEP) 5.6 L (6.2-8.2) g/dL Albumin (3.80-4.90) g/dL Albumin/Globulin Ratio (1.60-3.17) g/dL RBC Folate >2,520 H (280 - 791) ng/mL Mycoplasma pneumon IgG 2.37 H (<=0.90) INDEX Crossmatch 06/05/20 06/06/20 06/07/20 Range/Units 08:34 07:51 06:31 RBC 2.41 L (4.30-5.90) m/uL Hgb 7.3 L (13.0-17.5) gm/dL Hct 24.9 L (39.0-53.0) % MCV 103.3 H (80.0-100.0) fL MCHC 29.5 L (31.0-37.0) g/dL RDW 18.6 H (11.5-15.5) % Eosinophils # 1.6 H (0-0.7) k/uL BUN/Creatinine Ratio 26.00 H (12.00-20.00) Ratio Calcium 7.9 L (8.7-10.3) mg/dL AST 38 H (14-35) U/L ALT (10-49) U/L Total Protein 4.9 L (6.2-8.2) g/dL Total Protein (PEP) (6.2-8.2) g/dL Albumin 2.80 L (3.80-4.90) g/dL Albumin/Globulin Ratio 1.33 L (1.60-3.17) g/dL RBC Folate (280 - 791) ng/mL Mycoplasma pneumon IgG (<=0.90) INDEX Crossmatch See Detail 06/07/20 Range/Units 06:31 RBC (4.30-5.90) m/uL Hgb (13.0-17.5) gm/dL Hct (39.0-53.0) % MCV (80.0-100.0) fL MCHC (31.0-37.0) g/dL RDW (11.5-15.5) % Eosinophils # (0-0.7) k/uL BUN/Creatinine Ratio 24.00 H (12.00-20.00) Ratio Calcium 8.3 L (8.7-10.3) mg/dL AST (14-35) U/L ALT 58 H (10-49) U/L Total Protein 5.3 L (6.2-8.2) g/dL Total Protein (PEP) (6.2-8.2) g/dL Albumin 3.00 L (3.80-4.90) g/dL Albumin/Globulin Ratio 1.30 L (1.60-3.17) g/dL RBC Folate (280 - 791) ng/mL Mycoplasma pneumon IgG (<=0.90) INDEX Crossmatch Microbiology - Last 24 Hours (Table) 06/06/20 12:30 Gram Stain - Preliminary Sputum Sputum Culture - Preliminary Benita albicans 06/04/20 08:35 Blood Culture - Preliminary Blood No Growth after 48 hours - Imaging and Cardiology Chest x-ray: report reviewed, image reviewed Assessment and Plan Assessment: 1. Shortness of breath, afebrile, no leukocytosis, pro-calcitonin 0.05, lactic acid 1.3, likely systolic heart failure 2. Superficial sternal incision infection, surface culture positive for staph epi, deep wound culture negative, current wound VAC in place 3. History of coronary artery disease, status post remote inferior wall NC with RCA stent, status post four-vessel CABG 04/15/2020, with postoperative acute blood loss anemia status post transfusion, atrial fibrillation/flutter status post clip ligation of the left atrial appendage and successful cardioversion, urinary retention with Grimm catheter replacement, Serratia UTI, left pleural effusion with unsuccessful attempted thoracentesis 4. Mild to moderate left ventricular dysfunction, chronic systolic heart failure, preoperative EF 40-45%, EF 50% on TTE 05/03, TTE on 06/05 40-45% 5. Mild mitral valve regurgitation 6. Moderately dilated ascending aorta 4.2 cm 7. History of hypertension, currently borderline hypotensive 8. Hyperlipidemia 9. Previous tobacco dependence 10. Remote history of pneumonia 11. BPH with continued urinary retention followed by urology 12. Family history of premature coronary artery disease 13. Acute on chronic anemia this admission Plan: 1. Wound VAC changed again today, continue to change Friday, Friday, and Friday. 2. Antibiotic management per Dr. Chris from infectious disease. 3. Continue aspirin, statin and beta branden. 4. GI and DVT prophylaxis. 5. Wean O2 as tolerated, encourage use of his incentive spirometry 10 times every hour while awake. 6. Continue to monitor daily labs and chest x-rays. Patient will receive 1 unit packed red blood cells today per primary care service, recommend IV Lasix post transfusion 7. Increase activity as tolerated, ambulate in hallway, out of bed for all meals. PT/OT consulted. 8. Continue to monitor strict in accurate I's and O's. Monitor daily weights with standing scale, not bed scale. 9. Continue postoperative CABG discharge instructions. Continue to remind postoperative lifting restrictions for a total of 12 weeks post operative. 10. Medical management and other comorbidities per primary care service. 11. Grimm catheter and urinary retention management per urology recommendations. 12. More recommendations to follow based on patient's clinical course. Time with Patient: Greater than 30
--- NOTE | 2020-06-07 11:50 | P.PN ---
Subjective Progress Note Date: 06/07/20 CHIEF COMPLAINT: afib HISTORY OF PRESENT ILLNESS: Patient examined at the bedside. Patient denies chest pain. Reports mild shortness of breath but states it is improving since admission. He was transitioned to oral lasix yesterday. Fluid balance over the last 24 hours is -2430cc. Vital signs stable. Hemoglobin 7.3. He is due to receive a unit of blood this morning. Chest x-ray this morning reveals diffuse persistent pleural parenchymal changes most suggestive of CHF. Underlying infiltrate not excluded. Correlate for COPD. PHYSICAL EXAM: VITAL SIGNS: Reviewed. GENERAL: Well-developed in no acute distress. NECK: Supple. No JVD or thyromegaly LUNGS: Respirations even and unlabored. Lungs diminished. HEART: Regular rate and rhythm. S1 and S2 heard. Wound vac to sternal region noted. EXTREMITIES: Normal range of motion. No clubbing or cyanosis. Peripheral pulses intact. No lower extremity edema ASSESSMENT: Shortness of breath secondary to anemia and mild heart failure Coronary artery disease s/p bypass grafting Paroxysmal atrial fibrillation s/p cardioversion, not on anti-coagulation secondary to anemia. Maintaining sinus mechanism. Anemia Hypertension Dyslipidemia Acute on chronic systolic heart failure, EF 40-45% Increase weakness and fatigue History of BPH with urinary retention Sternal wound infection with wound vac in place PLAN: Oral lasix increased to 40mg BID per internal medicine Monitor kidney function Accurate I&O Daily weights Monitor hemoglobin. Patient to receive RBC transfusion today per medicine. Nurse practitioner note has been reviewed by physician. Signing provider agrees with the documented findings, assessment, and plan of care. Objective - Vital Signs Vital signs: Vital Signs Temp 98.4 F 06/07/20 07:00 Pulse 83 06/07/20 09:18 Resp 18 06/07/20 08:00 BP 110/61 06/07/20 07:00 Pulse Ox 97 06/07/20 09:06 Intake & Output 06/06/20 06/07/20 06/07/20 18:59 06:59 18:59 Intake Total 790 430 200 Output Total 2600 1050 Balance -1810 -620 200 Weight 80.5 kg Intake: IV 80 Normal Saline 0.9% 80 Intake, IV Titration 350 350 Amount Cefepime 2 gm In Sodium 100 100 Chloride 0.9% 100 ml @ 25 mls/hr IVPB Q12HR [facility] Rx #:[id number] Vancomycin 1,500 mg In 250 250 Sodium Chloride 0.9% 250 ml @ 125 mls/hr IVPB Q16H [facility] Rx#:[id number] Oral 440 200 Output: Urine 2600 1050 Other: Voiding Method Indwelling Catheter Indwelling Catheter Indwelling Catheter # Voids 1 - Labs CBC & Chem 7: 06/07/20 06:31 06/07/20 06:31 Labs: Abnormal Lab Results - Last 24 Hours (Table) 06/04/20 06/05/20 06/05/20 Range/Units 06:36 06:36 06:39 RBC (4.30-5.90) m/uL Hgb (13.0-17.5) gm/dL Hct (39.0-53.0) % MCV (80.0-100.0) fL MCHC (31.0-37.0) g/dL RDW (11.5-15.5) % Eosinophils # (0-0.7) k/uL BUN/Creatinine Ratio (12.00-20.00) Ratio Calcium (8.7-10.3) mg/dL AST (14-35) U/L ALT (10-49) U/L Total Protein (6.2-8.2) g/dL Total Protein (PEP) 5.6 L (6.2-8.2) g/dL Albumin (3.80-4.90) g/dL Albumin/Globulin Ratio (1.60-3.17) g/dL RBC Folate >2,520 H (280 - 791) ng/mL Mycoplasma pneumon IgG 2.37 H (<=0.90) INDEX Crossmatch 06/05/20 06/06/20 06/07/20 Range/Units 08:34 07:51 06:31 RBC 2.41 L (4.30-5.90) m/uL Hgb 7.3 L (13.0-17.5) gm/dL Hct 24.9 L (39.0-53.0) % MCV 103.3 H (80.0-100.0) fL MCHC 29.5 L (31.0-37.0) g/dL RDW 18.6 H (11.5-15.5) % Eosinophils # 1.6 H (0-0.7) k/uL BUN/Creatinine Ratio 26.00 H (12.00-20.00) Ratio Calcium 7.9 L (8.7-10.3) mg/dL AST 38 H (14-35) U/L ALT (10-49) U/L Total Protein 4.9 L (6.2-8.2) g/dL Total Protein (PEP) (6.2-8.2) g/dL Albumin 2.80 L (3.80-4.90) g/dL Albumin/Globulin Ratio 1.33 L (1.60-3.17) g/dL RBC Folate (280 - 791) ng/mL Mycoplasma pneumon IgG (<=0.90) INDEX Crossmatch See Detail 06/07/20 Range/Units 06:31 RBC (4.30-5.90) m/uL Hgb (13.0-17.5) gm/dL Hct (39.0-53.0) % MCV (80.0-100.0) fL MCHC (31.0-37.0) g/dL RDW (11.5-15.5) % Eosinophils # (0-0.7) k/uL BUN/Creatinine Ratio 24.00 H (12.00-20.00) Ratio Calcium 8.3 L (8.7-10.3) mg/dL AST (14-35) U/L ALT 58 H (10-49) U/L Total Protein 5.3 L (6.2-8.2) g/dL Total Protein (PEP) (6.2-8.2) g/dL Albumin 3.00 L (3.80-4.90) g/dL Albumin/Globulin Ratio 1.30 L (1.60-3.17) g/dL RBC Folate (280 - 791) ng/mL Mycoplasma pneumon IgG (<=0.90) INDEX Crossmatch Microbiology - Last 24 Hours (Table) 06/04/20 08:35 Blood Culture - Preliminary Blood No Growth after 72 hours 06/06/20 12:30 Gram Stain - Preliminary Sputum Sputum Culture - Preliminary Benita albicans
[2020-06-07] MEDS: IPRATROPIUM-ALBUTEROL 3 ML NEB INHALATION SCH ×3 (12:09→19:15)
--- NOTE | 2020-06-07 12:29 | P.PN ---
Subjective Progress Note Date: 06/07/20 Subjective 79-year-old male patient of Dr. guallpa with long-standing history of CAD post KS with history of PCI and stent placement of the right coronary artery disease over 10 years ago who is known to have history of hypertension hyperlipidemia and previous history of tobacco dependency patient has been doing natural management for many years started noticing significant shortness of breath and decrease endurance when attempted to walk and ambulate was seen Dr. FRANK patel and end up going for stress test showed moderate area of infarct ischemic change patient ended up going for heart cath on 03/09/2020 finding was consistent with 80 percentile blockage of the LAD, 70% blockage in the mid LAD, 90% blockage of the circumflex and 95% blockage of the RCA, underwent 4 vessel bypass surgery on 2019 and was sent to the ICU on mechanical ventilation. Postoperatively e xperienced atrial fibrillation/atrial flutter , also underwent synchronized cardioversion with return to normal sinus rhythm. Patient also received 1 unit of packed RBC while at [facility] for acute blood loss anemia. He was also found to have urinary retention for which he was placed on Soria catheter and was sent to inpatient rehab at [facility]. Patient was given iron infusion at [facility] and 2 attempts were made to remove Soria catheter without any success. Patient is started on Flomax and proscar to help with urine retention. Patient was noted to be short of breath at inpatient rehab on 04/25 sec t o left pleural effusion, developed worsening shortness of breath requiring brief stay at ICU. Chest CT was obtained that showed an congestive heart failure with mild infiltrate with failed attempt at thoracentesis with minimal output. The echo suggested an EF of 50% Urine and blood culture was was positive for Serratia and patient was placed on cefepime by Dr. Hightower. On 05/06 was transferred back to [facility] for superficial sternal incision infection positive for staph epi. Patient completed 4 weeks of IV daptomycin and follows up with wound care under Dr. Hightower as outpatient. Patient wears wound VAC gets changed every Friday and Friday and in the wound Center every Friday. Since patient continued to have urinary retention with failed attempts to remove it patient was discharged on Soria catheter with outpatient follow-up with urology. Patient has upcoming appointment on 06/06 for possible urodynamic studies. He was doing well until a few days ago when he was unable to walk to his car without getting shortness of breath. 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 Knowles and Dr. Little areas bowel outpatient within the last 1 week and was told he is doing well. Some of his medications were adjusted as outpatient. Patient endorses cough with mild phlegm production. He denies any chest pain or increased drainage from the wound. He follows every week at Wound Center and has been told his sternal incision is healing well. Patient denies any change in bowel movements or blood in the stools. He denies any nausea or vomiting. On evaluation in the ER patient was found to have a temp of 97.8 pulse 85 respiratory rate 16 blood pressure 109/58 oxygen saturation 91% on 2 L of oxygen. Patient does not wear oxygen at home. On evaluation of his last patient continues to have a low hemoglobin 7.1, MCV 103.5 platelet 455 ESR has worsened since the beginning of May to 102, CRP increased from 25-139. ProBNP is 2560. Albumin is 2.8 pro-calcitonin ordered. Legionella antigen ordered. Mycoplasma IgM ordered COVID 19 pending. Continue broad-spectrum antibiotic with vancomycin and cefepime. Infectious disease consult placed. Cardiothoracic surgery consulted. Lasix initiated at 40 IV twice a day continue metolazone and 5 mg by mouth daily. 06/05: Patient was evaluated today noted to be sitting in bedside chair. Patient still has complaints of mild shortness of breath, denies any chest pain. Hemoglobin did drop today to 6.1, 1 unit PRBCs ordered. Will check fecal occult blood. Urology has been consulted for his urinary retention. Repeat chest x- ray shows cardiomegaly and prominent pulmonary vascular markings scattered infiltrate and possible pneumonia although his Pro-calcitonin was 0.05, he continues on cefepime and vancomycin. Wound VAC is scheduled to be changed today, infectious disease is on consult. 06/06: patient seen resting in chair this morning. patient received 1 unit of packed RBCs yesterday hemoglobin is 7.1 today. vital signs are stable, patient remains afebrile pulse rate 69, respirations 14, blood pressure 102/63, pulse ox 97% on room air. chest x-ray showed diffuse pleural parenchymal changes are stable superimposed on background of COPD. code in 19 testing was negative. 06/07: Patient was evaluated at bedside today. Repeat hemoglobin was 7.3 this a.m., will transfuse 1 more unit of packed RBCs today. Lasix was increased to 40 mg twice a day. Sputum culture was discussed with ID azithromycin was added and will continue to monitor per IDs recommendations. Blood cultures were negative after 72 hours. Vital signs are stable, patient is afebrile, heart rate 73, blood pressure 110/61, pulse ox 96% on room air. - Exam - Constitutional General appearance: cooperative, no acute distress - EENT Eyes: anicteric sclerae, pupil equal and round , normal appearance ENT: hearing grossly normal - Neck Neck: no lymphadenopathy, normal ROM, JVP absent - Respiratory Respiratory: bilateral: Fine crackles with diminished air entry at bases. - Cardiovascular Rhythm: regular Heart sounds: normal: S1, S2 Abnormal Heart Sounds: no systolic murmur, no diastolic murmur. - Gastrointestinal General gastrointestinal: normal bowel sounds, soft, non tender, soria catheter remains in place - Integumentary Integumentary: no rash, sternal wound packed with dry dressing and wound vac - Neurologic Neurologic: No gross motor or sensory deficit located no abnormality - Musculoskeletal Musculoskeletal: gait normal, strength equal bilaterally - Psychiatric Psychiatric: A&O x's 3, appropriate affect Objective - Vital Signs Vital signs: Vital Signs Temp 97.9 F 06/07/20 01:03 Pulse 68 06/07/20 01:03 Resp 18 06/06/20 23:16 BP 98/46 06/07/20 01:03 Pulse Ox 95 06/07/20 01:03 Intake & Output 06/06/20 06/07/20 06/07/20 18:59 06:59 18:59 Intake Total 790 430 Output Total 2600 1050 Balance -1810 -620 Weight 80.5 kg Intake: IV 80 Normal Saline 0.9% 80 Intake, IV Titration 350 350 Amount Cefepime 2 gm In Sodium 100 100 Chloride 0.9% 100 ml @ 25 mls/hr IVPB Q12HR [facility] Rx #:[id number] Vancomycin 1,500 mg In 250 250 Sodium Chloride 0.9% 250 ml @ 125 mls/hr IVPB Q16H [facility] Rx#:[id number] Oral 440 Output: Urine 2600 1050 Other: Voiding Method Indwelling Catheter Indwelling Catheter # Voids 1 - Labs CBC & Chem 7: 06/07/20 06:31 06/07/20 06:31 Labs: Abnormal Lab Results - Last 24 Hours (Table) 06/04/20 06/05/20 06/06/20 Range/Units 06:36 06:39 07:51 RBC 2.33 L (4.30-5.90) m/uL Hgb 7.1 L (13.0-17.5) gm/dL Hct 23.8 L (39.0-53.0) % MCV 102.2 H (80.0-100.0) fL MCHC 29.9 L (31.0-37.0) g/dL RDW 18.9 H (11.5-15.5) % Eosinophils # 1.4 H (0-0.7) k/uL Haptoglobin 263.0 H (31.2-198.0) mg/dL BUN/Creatinine Ratio (12.00-20.00) Ratio Calcium (8.7-10.3) mg/dL AST (14-35) U/L Total Protein (6.2-8.2) g/dL Total Protein (PEP) 5.6 L (6.2-8.2) g/dL Albumin (3.80-4.90) g/dL Albumin/Globulin Ratio (1.60-3.17) g/dL Free [place] LC, Quant 5.68 H (0.33-1.94) mg/dL Free Lambda LC, Quant 4.66 H (0.57-2.63) mg/dL Mycoplasma pneumon IgG 2.37 H (<=0.90) INDEX 06/06/20 Range/Units 07:51 RBC (4.30-5.90) m/uL Hgb (13.0-17.5) gm/dL Hct (39.0-53.0) % MCV (80.0-100.0) fL MCHC (31.0-37.0) g/dL RDW (11.5-15.5) % Eosinophils # (0-0.7) k/uL Haptoglobin (31.2-198.0) mg/dL BUN/Creatinine Ratio 26.00 H (12.00-20.00) Ratio Calcium 7.9 L (8.7-10.3) mg/dL AST 38 H (14-35) U/L Total Protein 4.9 L (6.2-8.2) g/dL Total Protein (PEP) (6.2-8.2) g/dL Albumin 2.80 L (3.80-4.90) g/dL Albumin/Globulin Ratio 1.33 L (1.60-3.17) g/dL Free [place] LC, Quant (0.33-1.94) mg/dL Free Lambda LC, Quant (0.57-2.63) mg/dL Mycoplasma pneumon IgG (<=0.90) INDEX Microbiology - Last 24 Hours (Table) 06/06/20 12:30 Gram Stain - Preliminary Sputum Sputum Culture - Preliminary 06/04/20 08:35 Blood Culture - Preliminary Blood No Growth after 48 hours Assessment and Plan Assessment: Plan: 1 acute hypoxic respiratory failure a candidate to acute diastolic congestive heart failure with possible healthcare associated pneumonia. continue DuoNeb as needed for shortness of breath. Sputum culture. Lasix 40 mg twice a day. Cardiothoracic surgery consulted. Will switch antibiotic to cefepime and vancomycin for broader coverage. Infectious disease consulted. 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 mucinex 600 q12 . I and O monitoring, daily weight 2 Post surgical superficial sternal infection status post I and D, wears wound vac, changed every fri, fri and friday. Wound culture was staph epi at [facility], no growth at [facility] . completed daptomycin as outpatient 3. CAUTI bacteremia secondary to Serratia. Completed cefepime as outpatient. Continues to have Soria catheter for urinary retention 4. H/o triple vessel coronary disease s/p remote inferior wall KS with RCA stent, post 4 vessel coronary artery bypass grafting with KEANE to the LAD, left radial arterial graft to the OM, SVG to the PDA, SVG to the diagonal with left radial artery harvest along with left lower extremity endoscopy Vein harvest on 04/13. On aspirin 325 mg, Lipitor 40 mg by mouth daily 5. Postop atrial flutter/ atrial fibrillation status post clip ligation of the left atrial appendage and cardioversion. Oral amiodarone was tapered off but it appears to be on patient's list. We will confirm with pharmacy on Lopressor. Patient is not on eliquis , which was discontinued during last was 6. 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 on Flomax and Finasteride 5 mg by mouth daily. Follows up with urology as outpatient 7. Acute on chronic anemia with bone marrow suppression status post multiple transfusions during last visit and iron infusion at [facility]. Continue daily CBC. Transfuse if hemoglobin less than 7. Continue iron supplementation daily patient needs to see an oncologist for assessment of anemia. Oncology consult placed 8. Systolic congestive heart failure with ejection fraction 50% with [id number] left ventricular dysfunction. Last echo obtained on 05/03 9. Hypertension. Continue Lopressor. 10. Hyperlipidemia: atorvastatin 40 mg daily resume medication. 11. History of osteoarthritis post right total knee arthroplasty. 12. Hyperglycemia. NovoLog scale. 13. DVT prophylaxis: heparin q 12 14. GI prophylaxis: Pantoprazole 40 by mouth with breakfast CODE STATUS: Full code. Patient will be admitted for minimum of 2 night stay The above impression and plan of care have been discussed and directed by signing physician. Graciela Pinon nurse practitioner acting as scribe for signing physician.
--- NOTE | 2020-06-07 14:17 | P.PN ---
Subjective Progress Note Date: 06/07/20 Principal diagnosis: Shortness of breath, weakness, lower extremity swelling 79-year-old white male patient with recent history of four-vessel coronary artery bypass grafting on 04/15/2020, and patient did develop superficial sternal wound infection requiring debridement, wound VAC placement, and antibiotics. Patient did have a victor hugo postoperative course and was discharged to inpatient rehab following his surgery, he did have postoperative atrial fibrillation, urinary tract infection related to Serratia, he also had a left pleural effusion with unsuccessful attempt at thoracentesis. Patient was also hospitalized at [facility] once after his surgery for sternal wound infection, he was treated with antibiotics, discharged home on daptomycin and cefepime. Patient was recovering well at home, however she developed increasing shortness of breath, nonproductive cough, she denied any fever or chills, and patient came into the hospital for reevaluation. Admission chest x- ray showed interstitial pulmonary infiltrates with small pleural effusions, CT c hest was obtained showing moderately sized bilateral pleural effusions appear to be improved from old exam, moderate cardiomegaly, new bilateral extensive peripheral pulmonary airspace infiltrates consistent with inflammatory disease. Patient still has the wound VAC on his sternal incision, with minimal drainage, it is being changed on Friday basis, he was started on a combination of vancomycin and cefepime. In addition patient felt very weak and fatigued, developed some mild lower extremity swelling. No leukocytosis on his labs, admission lab work showed white cell count of 10.6, hemoglobin 7.1, she is not significantly worse from his last admission, no evidence of bleeding, platelet count is 455, INR is 1.0, sodium was 1:30, potassium is 4.0, chloride is 95, CO2 is 30, BUN is 42, creatinine is 1.2, lactic acid is 1.3, troponin was negative at less than 0.012, proBNP was 2560, CRP was 139, COVID 19 was negative, urine Legionella antigen was negative, mycoplasma IgG was elevated 2.37, for which azithromycin was added to antibiotic coverage. On today's exam patient is awake and alert, in no acute distress, currently on 2 L of oxygen. Assessment sent percent, hemodynamically patient is stable, he has had no fever or chills, he is on maintenance dose of oral Lasix at 40 mg twice daily, antibiotics, breathing treatments, he states she is breathing better, no cough with production of some mucous Objective - Vital Signs Vital signs: Vital Signs Temp 97.6 F 06/07/20 13:41 Pulse 75 06/07/20 13:41 Resp 16 06/07/20 13:41 BP 97/42 06/07/20 13:42 Pulse Ox 98 06/07/20 13:41 Intake & Output 06/06/20 06/07/20 06/07/20 18:59 06:59 18:59 Intake Total 790 430 550 Output Total 2600 1050 Balance -1810 -620 550 Weight 80.5 kg Intake: IV 80 Normal Saline 0.9% 80 Intake, IV Titration 350 350 350 Amount Azithromycin 500 mg In 250 Sodium Chloride 0.9% 250 ml @ 250 mls/hr IVPB DAILY [facility] Rx#:[id number] Cefepime 2 gm In Sodium 100 100 100 Chloride 0.9% 100 ml @ 25 mls/hr IVPB Q12HR [facility] Rx #:[id number] Vancomycin 1,500 mg In 250 250 Sodium Chloride 0.9% 250 ml @ 125 mls/hr IVPB Q16H [facility] Rx#:[id number] Oral 440 200 Blood Product 0 Rc As-3 Unit 0 [id number] Output: Urine 2600 1050 Other: Voiding Method Indwelling Catheter Indwelling Catheter Indwelling Catheter # Voids 1 - Exam GENERAL EXAM: Alert, very pleasant, 71-year-old white male, currently on 2 L of oxygen pulse ox of 97% comfortable in no apparent distress. HEAD: Normocephalic/atraumatic. EYES: Normal reaction of pupils, equal size. Conjunctiva pink, sclera white. NOSE: Clear with pink turbinates. THROAT: No erythema or exudates. NECK: No masses, no JVD, no thyroid enlargement, no adenopathy. CHEST: No chest wall deformity. Symmetrical expansion. Wound VAC applied to sternal wound, sternal wound is clean dry and intact, minimal drainage in the canister LUNGS: Equal air entry with no crackles, wheeze, rhonchi or dullness. CVS: Regular rate and rhythm, normal S1 and S2, no gallops, no murmurs, no rubs ABDOMEN: Soft, nontender. No hepatosplenomegaly, normal bowel sounds, no g uarding or rigidity. EXTREMITIES: No clubbing, no edema, no cyanosis, 2+ pulses and upper and lower extremities. MUSCULOSKELETAL: Muscle strength and tone normal. SPINE: No scoliosis or deformity SKIN: No rashes CENTRAL NERVOUS SYSTEM: Alert and oriented -3. No focal deficits, tone is normal in all 4 extremities. PSYCHIATRIC: Alert and oriented -3. Appropriate affect. Intact judgment and insight. - Labs CBC & Chem 7: 06/07/20 06:31 06/07/20 06:31 Labs: Abnormal Lab Results - Last 24 Hours (Table) 06/05/20 06/05/20 06/05/20 Range/Units 06:36 06:39 08:34 RBC (4.30-5.90) m/uL Hgb (13.0-17.5) gm/dL Hct (39.0-53.0) % MCV (80.0-100.0) fL MCHC (31.0-37.0) g/dL RDW (11.5-15.5) % Eosinophils # (0-0.7) k/uL BUN/Creatinine Ratio (12.00-20.00) Ratio Calcium (8.7-10.3) mg/dL ALT (10-49) U/L Total Protein (6.2-8.2) g/dL Albumin (3.80-4.90) g/dL Albumin/Globulin Ratio (1.60-3.17) g/dL RBC Folate >2,520 H (280 - 791) ng/mL Mycoplasma pneumon IgG 2.37 H (<=0.90) INDEX Crossmatch See Detail 06/07/20 06/07/20 Range/Units 06:31 06:31 RBC 2.41 L (4.30-5.90) m/uL Hgb 7.3 L (13.0-17.5) gm/dL Hct 24.9 L (39.0-53.0) % MCV 103.3 H (80.0-100.0) fL MCHC 29.5 L (31.0-37.0) g/dL RDW 18.6 H (11.5-15.5) % Eosinophils # 1.6 H (0-0.7) k/uL BUN/Creatinine Ratio 24.00 H (12.00-20.00) Ratio Calcium 8.3 L (8.7-10.3) mg/dL ALT 58 H (10-49) U/L Total Protein 5.3 L (6.2-8.2) g/dL Albumin 3.00 L (3.80-4.90) g/dL Albumin/Globulin Ratio 1.30 L (1.60-3.17) g/dL RBC Folate (280 - 791) ng/mL Mycoplasma pneumon IgG (<=0.90) INDEX Crossmatch Microbiology - Last 24 Hours (Table) 06/04/20 08:35 Blood Culture - Preliminary Blood No Growth after 72 hours 06/06/20 12:30 Gram Stain - Preliminary Sputum Sputum Culture - Preliminary Benita albicans Assessment and Plan Plan: Assessment: #1. Shortness of breath, most likely related to acute exacerbation of congestive heart failure with systolic dysfunction, doubt possibility of underlying pneumonia, procalcitonin level was negative, no leukocytosis, no fever. Mycoplasma IgG was elevated suggesting remote history of infection, no active infection #2. Recent history of sternal wound infection, patient has a wound VAC in place just changed on Friday basis, patient has been on IV antibiotics in the form of daptomycin and cefepime on an outpatient basis. Current antibiotic coverage includes vancomycin and cefepime #3. Recent history of left pleural effusion, with history of unsuccessful thoracentesis, patient is maintained on oral Lasix 40 mg twice daily #4. Recent history of four-vessel coronary bypass grafting in April 2020, the patient had a complicated course, requiring discharge to inpatient rehab, and recurrent rehospitalization posterior wound infection, urinary tract infection, and left sided pleural effusion #5. History of coronary artery disease status post bypass grafting and previous stenting #6. History of hypertension #7. Hyperlipidemia #8. Prior history of myocardial infarction Plan: Continue antibiotics, mycoplasma IgG was elevated suggesting history of remote infection, no active mycoplasma pneumonia infection, doubt possibility of underlying pneumonia, we felt that patient's shortness of breath was related to fluid overload rather than infectious process or pneumonia in the lungs. Continue current dose of oral Lasix, continue nebulized bronchodilators. Patient is complaining his antibiotics for recent history of sternal wound infection. No altered mentation, vital signs are stable, no fever or chills. We'll continue to follow I performed a history & physical examination of the patient and discussed their management with my nurse practitioner, Amanda Hercules. I reviewed the nurse practitioner's note and agree with the documented findings and plan of care. Lung sounds are positive for diminished breath sounds. The findings and the impression was discussed with the patient. I attest to the documentation by the nurse practitioner. Time with Patient: Less than 30
[2020-06-07] MEDS: FUROSEMIDE 40 MG TAB PO SCH (16:30)
[2020-06-07] MEDS: SYMBICORT 160-4.5 MCG INHALER INHALATION SCH (19:15)
[2020-06-07] MEDS: SENNOSIDES-DOCUSATE SODIUM 1 EACH TAB PO SCH (20:26)
[2020-06-07] MEDS: ATORVASTATIN 40 MG TAB PO SCH (20:26)
[2020-06-08] MEDS ORDERED: ONDANSETRON 4 MG/2 ML VIAL IVP PRN (01:54)
--- NOTE | 2020-06-08 03:01 | PN ---
PROGRESS NOTE DATE OF SERVICE: 06/07/2020 REASON FOR FOLLOWUP: 1. Sternal wound infection. 2. Possible atypical bacterial pneumonia. INTERVAL HISTORY: The patient remains to be afebrile. The patient is breathing slightly comfortably. The patient denies having any chest pain. He did have some cough. No sputum. No abdominal pain or diarrhea. PHYSICAL EXAMINATION: Blood pressure 110/51 with a pulse of 83, temperature 97.9. He is 94% on room air. General description is an elderly male up in the chair in no distress. RESPIRATORY SYSTEM: Unlabored breathing, decreased intensity of breath sounds. No wheeze. HEART: S1, S2. Regular rate and rhythm. ABDOMEN: Soft, no tenderness. Chest wall is currently covered with a wound VAC. EXTREMITIES: No edema of the feet. LABS: Hemoglobin 7.3, white count 8.1. BUN of 24, creatinine is 1.0. Vancomycin trough 13.8. Mycoplasma IgM negative. IgG positive. Urine for Legionella antigen negative. Sputum with Benita albicans. DIAGNOSTIC IMPRESSION AND PLAN: 1. Patient admitted to the hospital with increasing shortness of breath, sudden onset with concern for possible fluid overload with underlying pneumonia less likely but not entirely excluded with concern for possible atypical. Patient is covered with Zithromax, to continue. 2. Patient chest wall wound previous culture positive for Staph epi. Patient is covered with vancomycin to continue and will monitor clinical course closely. MMODL / IJN: [id number] /
--- NOTE | 2020-06-08 07:28 | XR ---
EXAMINATION TYPE: XR chest 2V DATE OF EXAM: 06/08/2020 COMPARISON: 06/07/2020 HISTORY: Shortness of breath TECHNIQUE: Frontal and lateral views of the chest are obtained. FINDINGS: Scattered senescent parenchymal changes noted. Hyperinflation compatible with COPD. Scattered areas of patchy infiltrate are seen bilaterally. Overall appearance is stable. Heart size is stable. Mediastinal structures are stable and grossly unremarkable. No evidence for hilar prominence. Degenerative changes dorsal spine. IMPRESSION: 1. Scattered areas of patchy infiltrate are seen bilaterally. Overall appearance is stable.
[2020-06-08] MEDS: VANCOMYCIN 1,500 MG in SODIUM CHLORIDE 0.9% 250 ML IVPB SCH (07:31)
[2020-06-08] MEDS: METOPROLOL TARTRATE 12.5 MG TAB PO SCH ×2 (07:31→20:12)
[2020-06-08] MEDS: MULTIVITAMINS, THERA 1 EACH TAB PO SCH (07:31)
[2020-06-08] MEDS: CEFEPIME 2 GM in SODIUM CHLORIDE 0.9% 100 ML IVPB SCH ×2 (07:31→20:16)
[2020-06-08] MEDS: FERROUS SULFATE 325 MG TAB PO SCH ×2 (07:31→15:57)
[2020-06-08] MEDS: HEPARIN SODIUM,PORCINE 5,000 UNIT/ML 1 ML VIAL SQ SCH ×2 (07:31→20:12)
[2020-06-08] MEDS: ASCORBIC ACID 500 MG TAB PO SCH ×2 (07:31→15:57)
[2020-06-08] MEDS: PANTOPRAZOLE 40 MG TABLET PO SCH (07:32)
[2020-06-08] MEDS: MIDODRINE 5 MG TAB PO SCH ×3 (07:32→17:35)
[2020-06-08] MEDS: FUROSEMIDE 40 MG TAB PO SCH ×2 (07:32→15:57)
[2020-06-08] MEDS: TAMSULOSIN 0.4 MG CAP.ER.24H PO SCH (07:32)
[2020-06-08] MEDS: FINASTERIDE 5 MG TAB PO SCH (07:32)
[2020-06-08] MEDS: guaiFENesin 600 MG TABLET.ER PO SCH ×2 (07:32→20:12)
[2020-06-08] MEDS: ASPIRIN 325 MG TAB PO SCH (07:32)
[2020-06-08] MEDS: IPRATROPIUM-ALBUTEROL 3 ML NEB INHALATION SCH ×4 (08:42→19:22)
[2020-06-08] MEDS: SYMBICORT 160-4.5 MCG INHALER INHALATION SCH ×2 (08:42→19:22)
[2020-06-08 08:53] LABS: Anisocytosis Slight; Basophils % (A) 0 %; Eosinophils # (A) 1.3 k/uL (0-0.7); Eosinophils % (A) 18 %; HCT 25.7 % (39.0-53.0); HGB 7.8 gm/dL (13.0-17.5); Hypochromasia Marked; Lymphocytes # (A) 1.1 k/uL (1.0-4.8); Lymphocytes % (A) 15 %; MCH 30.3 pg (25.0-35.0); MCHC 30.2 g/dL (31.0-37.0); MCV 100.4 fL (80.0-100.0); Macrocytosis Moderate; Mean Platelet Volume 8.4; Monocytes # (A) 0.4 k/uL (0-1.0); Monocytes % (A) 5 %; Neutrophils # (A) 4.4 k/uL (1.3-7.7); Neutrophils % (A) 60 %; Platelet Count 431 k/uL (150-450); RBC 2.56 m/uL (4.30-5.90); RDW 18.2 % (11.5-15.5); WBC 7.3 k/uL (3.8-10.6)
--- NOTE | 2020-06-08 09:21 | P.PN ---
Subjective Progress Note Date: 06/08/20 Principal diagnosis: Shortness of breath, afebrile, no leukocytosis, pro-calcitonin 0.05, lactic acid 1.3, likely from systolic heart failure; superficial sternal incision infection, surface culture positive for staph epi, deep wound culture negative, current wound VAC in place, acute on chronic anemia. Previous medical history of coronary artery disease, status post remote inferior wall VT with RCA stent, status post four-vessel CABG 04/15/2020, with postoperative acute blood loss anemia status post transfusion, atrial fibrillation/flutter status post clip ligation of the left atrial appendage and successful cardioversion, urinary retention with Grimm catheter replacement, Serratia UTI, left pleural effusion with unsuccessful attempted thoracentesis, mild to moderate left ventricular dysfunction, chronic systolic heart failure, preoperative EF 40-45%, EF 50% on TTE 05/03, TTE 06/05 EF 40-45%, mild mitral valve regurgitation, 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 Does continue to stay he feels better every day. He remains afebrile without leukocytosis. Needs a lot of encouragement to get out of bed and stay out of b ed, would prefer to lay in bed majority of the day. Remains on cefepime and vancomycin with azithromycin added by primary care. Hemoglobin 7.8 this morning, was 7.3 yesterday, patient received packed red blood cells yesterday per primary care. Wound VAC changed yesterday. No other new concerns. Objective - Vital Signs Vital signs: Vital Signs Temp 98.1 F 06/08/20 07:00 Pulse 72 06/08/20 08:57 Resp 16 06/07/20 16:18 BP 104/52 06/08/20 07:00 Pulse Ox 90 L 06/08/20 07:00 Intake & Output 06/07/20 06/08/20 06/08/20 18:59 06:59 18:59 Intake Total 1160 Output Total 1999 1200 Balance -840 -1200 Weight 79.7 kg Intake: Intake, IV Titration 350 Amount Azithromycin 500 mg In 250 Sodium Chloride 0.9% 250 ml @ 250 mls/hr IVPB DAILY [facility] Rx#:[id number] Cefepime 2 gm In Sodium 100 Chloride 0.9% 100 ml @ 25 mls/hr IVPB Q12HR [facility] Rx #:[id number] Oral 500 Blood Product 310 Rc As-3 Unit 310 [id number] Output: Urine 2000 1200 Other: Voiding Method Indwelling Catheter Indwelling Catheter - Constitutional General appearance: Present: cooperative, no acute distress - Respiratory Details: Lungs sounds diminished bilaterally. Respirations even, nonlabored. Currently on room air. Able to achieve 1500 mL on his incentive spirometry. Strong cough. - Cardiovascular Details: S1, S2 present. Regular rate and rhythm, sinus rhythm on telemetry. Sternum stable. Palpable peripheral pulses bilaterally. No edema present. No calf pain or tenderness noted - Gastrointestinal Gastrointestinal Comment(s): Abdomen soft, nontender, nondistended. Active bowel sounds present 4 quadrants. Tolerating diet. Positive daily bowel movements per patient - Genitourinary Genitourinary Comment(s): Grimm present draining clear, yellow urine. - Integumentary Integumentary Comment(s): Skin is warm and dry with evidence of good perfusion. Anterior chest incision with wound VAC in place - Neurologic Neurologic: Present: CNII-XII intact - Musculoskeletal Musculoskeletal: Present: gait normal, strength equal bilaterally - Psychiatric Psychiatric: Present: A&O x's 3, appropriate affect, intact judgment & insight - Allied health notes Allied health notes reviewed: nursing - Labs CBC & Chem 7: 06/08/20 07:42 06/07/20 06:31 Labs: Abnormal Lab Results - Last 24 Hours (Table) 06/05/20 06/05/20 06/07/20 Range/Units 06:36 08:34 06:31 RBC 2.41 L (4.30-5.90) m/uL Hgb 7.3 L (13.0-17.5) gm/dL Hct 24.9 L (39.0-53.0) % MCV 103.3 H (80.0-100.0) fL MCHC 29.5 L (31.0-37.0) g/dL RDW 18.6 H (11.5-15.5) % Eosinophils # 1.6 H (0-0.7) k/uL BUN/Creatinine Ratio (12.00-20.00) Ratio Calcium (8.7-10.3) mg/dL ALT (10-49) U/L Total Protein (6.2-8.2) g/dL Albumin (3.80-4.90) g/dL Albumin/Globulin Ratio (1.60-3.17) g/dL RBC Folate >2,520 H (280 - 791) ng/mL Crossmatch See Detail 06/07/20 06/08/20 Range/Units 06:31 07:42 RBC 2.56 L (4.30-5.90) m/uL Hgb 7.8 L (13.0-17.5) gm/dL Hct 25.7 L (39.0-53.0) % MCV 100.4 H (80.0-100.0) fL MCHC 30.2 L (31.0-37.0) g/dL RDW 18.2 H (11.5-15.5) % Eosinophils # 1.3 H (0-0.7) k/uL BUN/Creatinine Ratio 24.00 H (12.00-20.00) Ratio Calcium 8.3 L (8.7-10.3) mg/dL ALT 58 H (10-49) U/L Total Protein 5.3 L (6.2-8.2) g/dL Albumin 3.00 L (3.80-4.90) g/dL Albumin/Globulin Ratio 1.30 L (1.60-3.17) g/dL RBC Folate (280 - 791) ng/mL Crossmatch Microbiology - Last 24 Hours (Table) 06/04/20 08:35 Blood Culture - Preliminary Blood No Growth after 72 hours 06/06/20 12:30 Gram Stain - Preliminary Sputum Sputum Culture - Preliminary Benita albicans - Imaging and Cardiology Chest x-ray: image reviewed Assessment and Plan Assessment: 1. Shortness of breath, afebrile, no leukocytosis, pro-calcitonin 0.05, lactic acid 1.3, likely systolic heart failure 2. Superficial sternal incision infection, surface culture positive for staph epi, deep wound culture negative, current wound VAC in place 3. History of coronary artery disease, status post remote inferior wall VT with RCA stent, status post four-vessel CABG 04/15/2020, with postoperative acute blood loss anemia status post transfusion, atrial fibrillation/flutter status post clip ligation of the left atrial appendage and successful cardioversion, urinary retention with Grimm catheter replacement, Serratia UTI, left pleural effusion with unsuccessful attempted thoracentesis 4. Mild to moderate left ventricular dysfunction, chronic systolic heart failure, preoperative EF 40-45%, EF 50% on TTE 05/03, TTE on 06/05 40-45% 5. Mild mitral valve regurgitation 6. Moderately dilated ascending aorta 4.2 cm 7. History of hypertension, currently borderline hypotensive 8. Hyperlipidemia 9. Previous tobacco dependence 10. Remote history of pneumonia 11. BPH with continued urinary retention followed by urology 12. Family history of premature coronary artery disease 13. Acute on chronic anemia this admission Plan: 1. Wound VAC changed yesterday, continue to change Friday, Friday, and Friday. 2. Antibiotic management per Dr. Chris from infectious disease. 3. Continue aspirin, statin and beta branden. 4. GI and DVT prophylaxis. 5. Encourage use of his incentive spirometry 10 times every hour while awake. 6. Continue to monitor daily labs and chest x-rays. 7. Increase activity as tolerated, ambulate in hallway, out of bed for all meals. PT/OT consulted. 8. Continue to monitor strict in accurate I's and O's. Monitor daily weights with standing scale, not bed scale. 9. Continue postoperative CABG discharge instructions. Continue to remind postoperative lifting restrictions for a total of 12 weeks post operative. 10. Medical management and other comorbidities per primary care service. 11. Grimm catheter and urinary retention management per urology recommendations. 12. More recommendations to follow based on patient's clinical course. Time with Patient: Greater than 30
--- NOTE | 2020-06-08 09:40 | P.PN ---
Subjective Progress Note Date: 06/08/20 Subjective 79-year-old male patient of Dr. guallpa with long-standing history of CAD post ND with history of PCI and stent placement of the right coronary artery disease over 10 years ago who is known to have history of hypertension hyperlipidemia and previous history of tobacco dependency patient has been doing natural management for many years started noticing significant shortness of breath and decrease endurance when attempted to walk and ambulate was seen Dr. FRANK patel and end up going for stress test showed moderate area of infarct ischemic change patient ended up going for heart cath on 03/09/2020 finding was consistent with 80 percentile blockage of the LAD, 70% blockage in the mid LAD, 90% blockage of the circumflex and 95% blockage of the RCA, underwent 4 vessel bypass surgery on 2019 and was sent to the ICU on mechanical ventilation. Postoperatively e xperienced atrial fibrillation/atrial flutter , also underwent synchronized cardioversion with return to normal sinus rhythm. Patient also received 1 unit of packed RBC while at [facility] for acute blood loss anemia. He was also found to have urinary retention for which he was placed on Soria catheter and was sent to inpatient rehab at [facility]. Patient was given iron infusion at [facility] and 2 attempts were made to remove Soria catheter without any success. Patient is started on Flomax and proscar to help with urine retention. Patient was noted to be short of breath at inpatient rehab on 04/25 sec t o left pleural effusion, developed worsening shortness of breath requiring brief stay at ICU. Chest CT was obtained that showed an congestive heart failure with mild infiltrate with failed attempt at thoracentesis with minimal output. The echo suggested an EF of 50% Urine and blood culture was was positive for Serratia and patient was placed on cefepime by Dr. Hightower. On 05/06 was transferred back to [facility] for superficial sternal incision infection positive for staph epi. Patient completed 4 weeks of IV daptomycin and follows up with wound care under Dr. Hightower as outpatient. Patient wears wound VAC gets changed every Friday and Friday and in the wound Center every Friday. Since patient continued to have urinary retention with failed attempts to remove it patient was discharged on Soria catheter with outpatient follow-up with urology. Patient has upcoming appointment on 06/06 for possible urodynamic studies. He was doing well until a few days ago when he was unable to walk to his car without getting shortness of breath. 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 Knowles and Dr. Little areas bowel outpatient within the last 1 week and was told he is doing well. Some of his medications were adjusted as outpatient. Patient endorses cough with mild phlegm production. He denies any chest pain or increased drainage from the wound. He follows every week at [facility] and has been told his sternal incision is healing well. Patient denies any change in bowel movements or blood in the stools. He denies any nausea or vomiting. On evaluation in the ER patient was found to have a temp of 97.8 pulse 85 respiratory rate 16 blood pressure 109/58 oxygen saturation 91% on 2 L of oxygen. Patient does not wear oxygen at home. On evaluation of his last patient continues to have a low hemoglobin 7.1, MCV 103.5 platelet 455 ESR has worsened since the beginning of May to 102, CRP increased from 25-139. ProBNP is 2560. Albumin is 2.8 pro-calcitonin ordered. Legionella antigen ordered. Mycoplasma IgM ordered COVID 19 pending. Continue broad-spectrum antibiotic with vancomycin and cefepime. Infectious disease consult placed. Cardiothoracic surgery consulted. Lasix initiated at 40 IV twice a day continue metolazone and 5 mg by mouth daily. 06/05: Patient was evaluated today noted to be sitting in bedside chair. Patient still has complaints of mild shortness of breath, denies any chest pain. Hemoglobin did drop today to 6.1, 1 unit PRBCs ordered. Will check fecal occult blood. Urology has been consulted for his urinary retention. Repeat chest x- ray shows cardiomegaly and prominent pulmonary vascular markings scattered infiltrate and possible pneumonia although his Pro-calcitonin was 0.05, he continues on cefepime and vancomycin. Wound VAC is scheduled to be changed today, infectious disease is on consult. 06/06: patient seen resting in chair this morning. patient received 1 unit of packed RBCs yesterday hemoglobin is 7.1 today. vital signs are stable, patient remains afebrile pulse rate 69, respirations 14, blood pressure 102/63, pulse ox 97% on room air. chest x-ray showed diffuse pleural parenchymal changes are stable superimposed on background of COPD. code in 19 testing was negative. 06/07: Patient was evaluated at bedside today. Repeat hemoglobin was 7.3 this a.m., will transfuse 1 more unit of packed RBCs today. Lasix was increased to 40 mg twice a day. Sputum culture was discussed with ID azithromycin was added and will continue to monitor per IDs recommendations. Blood cultures were negative after 72 hours. Vital signs are stable, patient is afebrile, heart rate 73, blood pressure 110/61, pulse ox 96% on room air. 06/08: Patient evaluated sitting in bedside chair, reports feeling a little bit better today. Patient was transfused with 1 unit RBCs yesterday hemoglobin 7.8 today. Chest x-ray showed scattered areas of patchy infiltrate are seen bilaterally overall is stable. We'll continue Lasix 40 mg twice a day. Vitals are stable, patient is afebrile, heart rate 70, blood pressure 104/52, pulse ox 92% on room air. Plan for discharge possibly tomorrow. - Exam - Constitutional General appearance: cooperative, no acute distress - EENT Eyes: anicteric sclerae, pupil equal and round , normal appearance ENT: hearing grossly normal - Neck Neck: no lymphadenopathy, normal ROM, JVP absent - Respiratory Respiratory: bilateral: Lung sounds diminished throughout.- Cardiovascular Rhythm: regular Heart sounds: normal: S1, S2 Abnormal Heart Sounds: no systolic murmur, no diastolic murmur. - Gastrointestinal General gastrointestinal: normal bowel sounds, soft, non tender, soria catheter remains in place - Integumentary Integumentary: no rash, sternal wound packed with dry dressing and wound vac - Neurologic Neurologic: No gross motor or sensory deficit located no abnormality - Musculoskeletal Musculoskeletal: gait normal, strength equal bilaterally - Psychiatric Psychiatric: A&O x's 3, appropriate affect Objective - Vital Signs Vital signs: Vital Signs Temp 98.1 F 06/08/20 07:00 Pulse 72 06/08/20 08:57 Resp 16 06/07/20 16:18 BP 104/52 06/08/20 07:00 Pulse Ox 90 L 06/08/20 07:00 Intake & Output 06/07/20 06/08/20 06/08/20 18:59 06:59 18:59 Intake Total 1160 Output Total 2000 1200 Balance -840 -1200 Weight 79.7 kg Intake: Intake, IV Titration 350 Amount Azithromycin 500 mg In 250 Sodium Chloride 0.9% 250 ml @ 250 mls/hr IVPB DAILY [facility] Rx#:[id number] Cefepime 2 gm In Sodium 100 Chloride 0.9% 100 ml @ 25 mls/hr IVPB Q12HR [facility] Rx #:[id number] Oral 500 Blood Product 310 Rc As-3 Unit 310 [id number] Output: Urine 2000 1200 Other: Voiding Method Indwelling Catheter Indwelling Catheter - Labs CBC & Chem 7: 06/08/20 07:42 06/07/20 06:31 Labs: Abnormal Lab Results - Last 24 Hours (Table) 06/05/20 06/05/20 06/07/20 Range/Units 06:36 08:34 06:31 RBC 2.41 L (4.30-5.90) m/uL Hgb 7.3 L (13.0-17.5) gm/dL Hct 24.9 L (39.0-53.0) % MCV 103.3 H (80.0-100.0) fL MCHC 29.5 L (31.0-37.0) g/dL RDW 18.6 H (11.5-15.5) % Eosinophils # 1.6 H (0-0.7) k/uL BUN/Creatinine Ratio (12.00-20.00) Ratio Calcium (8.7-10.3) mg/dL ALT (10-49) U/L Total Protein (6.2-8.2) g/dL Albumin (3.80-4.90) g/dL Albumin/Globulin Ratio (1.60-3.17) g/dL RBC Folate >2,520 H (280 - 791) ng/mL Crossmatch See Detail 06/07/20 06/08/20 Range/Units 06:31 07:42 RBC 2.56 L (4.30-5.90) m/uL Hgb 7.8 L (13.0-17.5) gm/dL Hct 25.7 L (39.0-53.0) % MCV 100.4 H (80.0-100.0) fL MCHC 30.2 L (31.0-37.0) g/dL RDW 18.2 H (11.5-15.5) % Eosinophils # 1.3 H (0-0.7) k/uL BUN/Creatinine Ratio 24.00 H (12.00-20.00) Ratio Calcium 8.3 L (8.7-10.3) mg/dL ALT 58 H (10-49) U/L Total Protein 5.3 L (6.2-8.2) g/dL Albumin 3.00 L (3.80-4.90) g/dL Albumin/Globulin Ratio 1.30 L (1.60-3.17) g/dL RBC Folate (280 - 791) ng/mL Crossmatch Microbiology - Last 24 Hours (Table) 06/04/20 08:35 Blood Culture - Preliminary Blood No Growth after 72 hours 06/06/20 12:30 Gram Stain - Preliminary Sputum Sputum Culture - Preliminary Benita albicans Assessment and Plan Assessment: Plan: 1 acute hypoxic respiratory failure a candidate to acute diastolic congestive heart failure with possible healthcare associated pneumonia. continue DuoNeb as needed for shortness of breath. Sputum culture. Lasix 40 mg twice a day. Cardiothoracic surgery consulted. Continue cefepime and vancomycin for broader coverage, and azithromycin IV was added. Infectious disease consulted. echo with EF 50 % with [id number] left ventricle dysfunction chronic systolic heart failure mild mitral valve disease regurgitation moderately dilated ascending aorta at 4.0 cm on 05/03 . mucinex 600 q12 . I and O monitoring, daily weight 2 Post surgical superficial sternal infection status post I and D, wears wound vac, changed every fri, fri and friday. Wound culture was staph epi at [facility], no growth at [facility] . completed daptomycin as outpatient 3. CAUTI bacteremia secondary to Serratia. Completed cefepime as outpatient. Continues to have Soria catheter for urinary retention 4. H/o triple vessel coronary disease s/p remote inferior wall ND with RCA stent, post 4 vessel coronary artery bypass grafting with KEANE to the LAD, left radial arterial graft to the OM, SVG to the PDA, SVG to the diagonal with left r adial artery harvest along with left lower extremity endoscopy Vein harvest on 04/13. On aspirin 325 mg, Lipitor 40 mg by mouth daily 5. Postop atrial flutter/ atrial fibrillation status post clip ligation of the left atrial appendage and cardioversion. Oral amiodarone was tapered off but it appears to be on patient's list. We will confirm with pharmacy on Lopressor. Patient is not on eliquis , which was discontinued during stay 6. 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 on Flomax and Finasteride 5 mg by mouth daily. Follows up with urology as outpatient 7. Acute on chronic anemia with bone marrow suppression status post multiple transfusions during last visit and iron infusion at [facility]. Continue daily CBC. Transfuse if hemoglobin less than 7. Continue iron supplementation daily patient needs to see an oncologist for assessment of anemia. Oncology consult placed 8. Systolic congestive heart failure with ejection fraction 50% with [id number] left ventricular dysfunction. Last echo obtained on 05/03 9. Hypertension. Continue Lopressor. 10. Hyperlipidemia: atorvastatin 40 mg daily resume medication. 11. History of osteoarthritis post right total knee arthroplasty. 12. Hyperglycemia. NovoLog scale. 13. DVT prophylaxis: heparin q 12 14. GI prophylaxis: Pantoprazole 40 by mouth with breakfast CODE STATUS: Full code. Patient will be admitted for minimum of 2 night stay The above impression and plan of care have been discussed and directed by signing physician. Graciela Pinon nurse practitioner acting as scribe for signing physician.
[2020-06-08] MEDS: AZITHROMYCIN 500 MG in SODIUM CHLORIDE 0.9% 250 ML IVPB SCH (10:07)
--- NOTE | 2020-06-08 10:30 | P.PN ---
Subjective Progress Note Date: 06/08/20 CHIEF COMPLAINT: afib HISTORY OF PRESENT ILLNESS: Patient examined at the bedside. Patient denies chest pain or pressure. He states his shortness of breath is improving a little bit each day. He remains on lasix 40mg PO BID. fluid balance of the last 24 hours is -2 L. Vital signs stable. PHYSICAL EXAM: VITAL SIGNS: Reviewed. GENERAL: Well-developed in no acute distress. NECK: Supple. No JVD or thyromegaly LUNGS: Respirations even and unlabored. Lungs diminished with expiratory wheezing noted. HEART: Regular rate and rhythm. S1 and S2 heard. Wound vac to sternal region noted. EXTREMITIES: Normal range of motion. No clubbing or cyanosis. Peripheral pulses intact. No lower extremity edema ASSESSMENT: Shortness of breath secondary to anemia and mild heart failure Coronary artery disease s/p bypass grafting Paroxysmal atrial fibrillation s/p cardioversion, not on anti-coagulation secondary to anemia. Maintaining sinus mechanism. Anemia Hypertension Dyslipidemia Acute on chronic systolic heart failure, EF 40-45% Increase weakness and fatigue History of BPH with urinary retention Sternal wound infection with wound vac in place PLAN: Continue oral lasix Monitor kidney function Accurate I&O Daily weights Nurse practitioner note has been reviewed by physician. Signing provider agrees with the documented findings, assessment, and plan of care. Objective - Vital Signs Vital signs: Vital Signs Temp 98.1 F 06/08/20 07:00 Pulse 72 06/08/20 08:57 Resp 16 06/07/20 16:18 BP 104/52 06/08/20 07:00 Pulse Ox 90 L 06/08/20 07:00 Intake & Output 06/07/20 06/08/20 06/08/20 18:59 06:59 18:59 Intake Total 1160 Output Total 1999 1200 Balance -840 -1200 Weight 79.7 kg Intake: Intake, IV Titration 350 Amount Azithromycin 500 mg In 250 Sodium Chloride 0.9% 250 ml @ 250 mls/hr IVPB DAILY [facility] Rx#:[id number] Cefepime 2 gm In Sodium 100 Chloride 0.9% 100 ml @ 25 mls/hr IVPB Q12HR [facility] Rx #:[id number] Oral 500 Blood Product 310 Rc As-3 Unit 310 [id number] Output: Urine 1999 1200 Other: Voiding Method Indwelling Catheter Indwelling Catheter - Labs CBC & Chem 7: 06/08/20 07:42 06/07/20 06:31 Labs: Abnormal Lab Results - Last 24 Hours (Table) 06/05/20 06/07/20 06/07/20 Range/Units 08:34 06:31 06:31 RBC 2.41 L (4.30-5.90) m/uL Hgb 7.3 L (13.0-17.5) gm/dL Hct 24.9 L (39.0-53.0) % MCV 103.3 H (80.0-100.0) fL MCHC 29.5 L (31.0-37.0) g/dL RDW 18.6 H (11.5-15.5) % Eosinophils # 1.6 H (0-0.7) k/uL BUN/Creatinine Ratio 24.00 H (12.00-20.00) Ratio Calcium 8.3 L (8.7-10.3) mg/dL ALT 58 H (10-49) U/L Total Protein 5.3 L (6.2-8.2) g/dL Albumin 3.00 L (3.80-4.90) g/dL Albumin/Globulin Ratio 1.30 L (1.60-3.17) g/dL Crossmatch See Detail 06/08/20 Range/Units 07:42 RBC 2.56 L (4.30-5.90) m/uL Hgb 7.8 L (13.0-17.5) gm/dL Hct 25.7 L (39.0-53.0) % MCV 100.4 H (80.0-100.0) fL MCHC 30.2 L (31.0-37.0) g/dL RDW 18.2 H (11.5-15.5) % Eosinophils # 1.3 H (0-0.7) k/uL BUN/Creatinine Ratio (12.00-20.00) Ratio Calcium (8.7-10.3) mg/dL ALT (10-49) U/L Total Protein (6.2-8.2) g/dL Albumin (3.80-4.90) g/dL Albumin/Globulin Ratio (1.60-3.17) g/dL Crossmatch Microbiology - Last 24 Hours (Table) 06/04/20 08:35 Blood Culture - Preliminary Blood No Growth after 72 hours 06/06/20 12:30 Gram Stain - Preliminary Sputum Sputum Culture - Preliminary Benita albicans
[2020-06-08] MEDS: methylPREDNISolone SOD SUCCI 125 MG/2 ML VIAL IV SCH ×2 (12:27→17:35)
--- NOTE | 2020-06-08 14:21 | P.PN ---
Subjective Progress Note Date: 06/08/20 Principal diagnosis: Shortness of breath, weakness, lower extremity swelling 79-year-old white male patient with recent history of four-vessel coronary artery bypass grafting on 04/15/2020, and patient did develop superficial sternal wound infection requiring debridement, wound VAC placement, and antibiotics. Patient did have a victor hugo postoperative course and was discharged to inpatient rehab following his surgery, he did have postoperative atrial fibrillation, urinary tract infection related to Serratia, he also had a left pleural effusion with unsuccessful attempt at thoracentesis. Patient was also hospitalized at [facility] once after his surgery for sternal wound infection, he was treated with antibiotics, discharged home on daptomycin and cefepime. Patient was recovering well at home, however she developed increasing shortness of breath, nonproductive cough, she denied any fever or chills, and patient came into the hospital for reevaluation. Admission chest x- ray showed interstitial pulmonary infiltrates with small pleural effusions, CT c hest was obtained showing moderately sized bilateral pleural effusions appear to be improved from old exam, moderate cardiomegaly, new bilateral extensive peripheral pulmonary airspace infiltrates consistent with inflammatory disease. Patient still has the wound VAC on his sternal incision, with minimal drainage, it is being changed on Friday basis, he was started on a combination of vancomycin and cefepime. In addition patient felt very weak and fatigued, developed some mild lower extremity swelling. No leukocytosis on his labs, admission lab work showed white cell count of 10.6, hemoglobin 7.1, she is not significantly worse from his last admission, no evidence of bleeding, platelet count is 455, INR is 1.0, sodium was 1:30, potassium is 4.0, chloride is 95, CO2 is 30, BUN is 42, creatinine is 1.2, lactic acid is 1.3, troponin was negative at less than 0.012, proBNP was 2560, CRP was 139, COVID 19 was negative, urine Legionella antigen was negative, mycoplasma IgG was elevated 2.37, for which azithromycin was added to antibiotic coverage. On today's exam patient is awake and alert, in no acute distress, currently on 2 L of oxygen. Assessment sent percent, hemodynamically patient is stable, he has had no fever or chills, he is on maintenance dose of oral Lasix at 40 mg twice daily, antibiotics, breathing treatments, he states she is breathing better, no cough with production of some mucous On 06/08/2020 patient seen in follow-up on a general medical surgical floor. Patient is awake and alert, oriented 3, patient is on activities of oxygen with pulse ox of 90-94%, hemodynamically stable, afebrile. Wound VAC remains in place and the sternal incision with minimal drainage, patient is cefepime and vancomycin, and azithromycin. Patient is on oral Lasix, nebulized bronchodilators, his very wheezy today, we were holding off on initiating steroids, in view of shortness of breath and a bronchospastic we'll add 6 doses of IV Solu-Medrol. Objective - Vital Signs Vital signs: Vital Signs Temp 98.1 F 06/08/20 07:00 Pulse 75 06/08/20 11:53 Resp 16 06/07/20 16:18 BP 104/52 06/08/20 07:00 Pulse Ox 90 L 06/08/20 07:00 Intake & Output 06/07/20 06/08/20 06/08/20 18:59 06:59 18:59 Intake Total 1160 300 Output Total 1999 1200 Balance -840 -1200 300 Weight 79.7 kg Intake: Intake, IV Titration 350 Amount Azithromycin 500 mg In 250 Sodium Chloride 0.9% 250 ml @ 250 mls/hr IVPB DAILY [facility]EL Rx#:[id number] Cefepime 2 gm In Sodium 100 Chloride 0.9% 100 ml @ 25 mls/hr IVPB Q12HR MANUEL Rx #:[id number] Oral 500 300 Blood Product 310 Rc As-3 Unit 310 [id number] Output: Urine 1999 1200 Other: Voiding Method Indwelling Catheter Indwelling Catheter Indwelling Catheter # Voids 3 - Exam GENERAL EXAM: Alert, very pleasant, 71-year-old white male, currently on 2 L of oxygen pulse ox of 94% comfortable in no apparent distress. HEAD: Normocephalic/atraumatic. EYES: Normal reaction of pupils, equal size. Conjunctiva pink, sclera white. NOSE: Clear with pink turbinates. THROAT: No erythema or exudates. NECK: No masses, no JVD, no thyroid enlargement, no adenopathy. CHEST: No chest wall deformity. Symmetrical expansion. Wound VAC applied to sternal wound, sternal wound is clean dry and intact, minimal drainage in the canister LUNGS: Equal air entry with diffuse wheezes CVS: Regular rate and rhythm, normal S1 and S2, no gallops, no murmurs, no rubs ABDOMEN: Soft, nontender. No hepatosplenomegaly, normal bowel sounds, no guarding or rigidity. EXTREMITIES: No clubbing, no edema, no cyanosis, 2+ pulses and upper and lower extremities. MUSCULOSKELETAL: Muscle strength and tone normal. SPINE: No scoliosis or deformity SKIN: No rashes CENTRAL NERVOUS SYSTEM: Alert and oriented -3. No focal deficits, tone is normal in all 4 extremities. PSYCHIATRIC: Alert and oriented -3. Appropriate affect. Intact judgment and insight. - Labs CBC & Chem 7: 06/08/20 07:42 06/07/20 06:31 Labs: Abnormal Lab Results - Last 24 Hours (Table) 06/05/20 06/08/20 Range/Units 08:34 07:42 RBC 2.56 L (4.30-5.90) m/uL Hgb 7.8 L (13.0-17.5) gm/dL Hct 25.7 L (39.0-53.0) % MCV 100.4 H (80.0-100.0) fL MCHC 30.2 L (31.0-37.0) g/dL RDW 18.2 H (11.5-15.5) % Eosinophils # 1.3 H (0-0.7) k/uL Crossmatch See Detail Microbiology - Last 24 Hours (Table) 06/06/20 12:30 Gram Stain - Final Sputum Sputum Culture - Final Benita albicans 06/04/20 08:35 Blood Culture - Preliminary Blood No Growth after 96 hours Assessment and Plan Plan: Assessment: #1. Shortness of breath, most likely related to acute exacerbation of congestive heart failure with systolic dysfunction, doubt possibility of underlying pneumonia, procalcitonin level was negative, no leukocytosis, no fever. Mycoplasma IgG was elevated suggesting remote history of infection, no active infection #2. Recent history of sternal wound infection, patient has a wound VAC in place just changed on Friday basis, patient has been on IV antibiotics in the form of daptomycin and cefepime on an outpatient basis. Current antibiotic coverage includes vancomycin and cefepime #3. Recent history of left pleural effusion, with history of unsuccessful thoracentesis, patient is maintained on oral Lasix 40 mg twice daily #4. Recent history of four-vessel coronary bypass grafting in April 2020, the patient had a complicated course, requiring discharge to inpatient rehab, and recurrent rehospitalization posterior wound infection, urinary tract infection, and left sided pleural effusion #5. History of coronary artery disease status post bypass grafting and previous stenting #6. History of hypertension #7. Hyperlipidemia #8. Prior history of myocardial infarction Plan: Continue current medical treatment, continue current antibiotics, and nebulized bronchodilators, patient is bronchospastic, short of breath, will add 6 doses of IV Solu-Medrol, will continue to follow I performed a history & physical examination of the patient and discussed their management with my nurse practitioner, Amanda Hercules. I reviewed the nurse practitioner's note and agree with the documented findings and plan of care. Lung sounds are positive for diminished breath sounds. The findings and the imp ression was discussed with the patient. I attest to the documentation by the nurse practitioner. Time with Patient: Less than 30
[2020-06-08 16:36] LABS: Glucose,Whole Blood 215 mg/dL (75-99)
[2020-06-08] MEDS: SENNOSIDES-DOCUSATE SODIUM 1 EACH TAB PO SCH (20:10)
[2020-06-08] MEDS: ATORVASTATIN 40 MG TAB PO SCH (20:12)
[2020-06-08 20:21] LABS: Glucose,Whole Blood 279 mg/dL (75-99)
[2020-06-09] MEDS: methylPREDNISolone SOD SUCCI 125 MG/2 ML VIAL IV SCH ×4 (00:16→18:03)
[2020-06-09] MEDS: VANCOMYCIN 1,500 MG in SODIUM CHLORIDE 0.9% 250 ML IVPB SCH ×2 (00:17→15:47)
--- NOTE | 2020-06-09 04:42 | PN ---
PROGRESS NOTE DATE OF SERVICE: 06/08/2020 REASON FOR FOLLOWUP: 1. Sternal wound infection. 2. Pneumonia. INTERVAL HISTORY: The patient is currently afebrile. The patient is breathing comfortably, has been complaining of expiratory wheeze. He did have a cough, not bringing up any sputum. No nausea, no vomiting. No abdominal pain or diarrhea. PHYSICAL EXAMINATION: Blood pressure is 105/58 with a pulse of 87, temperature 98.2. He is 93% on room air. General description is an elderly male lying in bed in no distress. RESPIRATORY SYSTEM: Unlabored breathing. Occasional expiratory wheeze. HEART: S1, S2. Regular rate and rhythm. ABDOMEN: Soft, no tenderness. LABS: Hemoglobin 7.8, white count 7.3. Creatinine 1.0. DIAGNOSTIC IMPRESSION AND PLAN: 1. Patient admitted to hospital with shortness of breath, possibly multifactorial, likely component of pneumonia, possible atypical covered with Zithromax. Steroid has been added to continue along with bronchodilator. 2. Sternal wound infection. The patient is currently covered with daptomycin. To continue local wound care with wound VAC. Continue supportive care. MMODL / IJN: [id number] /
[2020-06-09 06:49] LABS: Anisocytosis Slight; Basophils % (A) 0 %; Eosinophils % (A) 0 %; HCT 24.5 % (39.0-53.0); HGB 7.4 gm/dL (13.0-17.5); Hypochromasia Marked; Lymphocytes # (A) 0.8 k/uL (1.0-4.8); Lymphocytes % (A) 17 %; MCHC 30.2 g/dL (31.0-37.0); MCV 99.4 fL (80.0-100.0); Macrocytosis Slight; Mean Platelet Volume 8.1; Monocytes # (A) 0.1 k/uL (0-1.0); Monocytes % (A) 2 %; Neutrophils # (A) 3.8 k/uL (1.3-7.7); Neutrophils % (A) 80 %; Platelet Count 450 k/uL (150-450); RBC 2.46 m/uL (4.30-5.90); RDW 18.1 % (11.5-15.5); WBC 4.7 k/uL (3.8-10.6)
[2020-06-09] MEDS: HEPARIN SODIUM,PORCINE 5,000 UNIT/ML 1 ML VIAL SQ SCH ×3 (07:53→20:25)
[2020-06-09] MEDS: CEFEPIME 2 GM in SODIUM CHLORIDE 0.9% 100 ML IVPB SCH ×2 (07:53→20:23)
[2020-06-09] MEDS: ASPIRIN 325 MG TAB PO SCH (07:53)
[2020-06-09] MEDS: FINASTERIDE 5 MG TAB PO SCH (07:54)
[2020-06-09] MEDS: guaiFENesin 600 MG TABLET.ER PO SCH ×2 (07:54→20:23)
[2020-06-09] MEDS: MIDODRINE 5 MG TAB PO SCH ×3 (07:54→15:47)
[2020-06-09] MEDS: FUROSEMIDE 40 MG TAB PO SCH ×2 (07:54→15:47)
[2020-06-09] MEDS: FERROUS SULFATE 325 MG TAB PO SCH ×2 (07:54→15:47)
[2020-06-09] MEDS: PANTOPRAZOLE 40 MG TABLET PO SCH (07:54)
[2020-06-09] MEDS: ASCORBIC ACID 500 MG TAB PO SCH ×2 (07:54→15:47)
[2020-06-09] MEDS: TAMSULOSIN 0.4 MG CAP.ER.24H PO SCH (07:54)
[2020-06-09] MEDS: METOPROLOL TARTRATE 12.5 MG TAB PO SCH ×2 (07:54→20:23)
[2020-06-09] MEDS: MULTIVITAMINS, THERA 1 EACH TAB PO SCH (07:54)
[2020-06-09] MEDS: AZITHROMYCIN 500 MG TAB PO SCH (07:55)
[2020-06-09 08:01] LABS: Glucose,Whole Blood 144 mg/dL (75-99)
[2020-06-09 08:15] LABS: African American GFR (CKD) 86 (>60 ml/min/1.73 sqM); Anion Gap 4 mmol/L; Blood Urea Nitrogen 25 mg/dL (9-20); Calcium 8.4 mg/dL (8.4-10.2); Carbon Dioxide 27 mmol/L (22-30); Chloride 101 mmol/L (98-107); Glucose 154 mg/dL (74-99); Non-African American GFR(CKD) 74 (>60 ml/min/1.73 sqM); Potassium 4.9 mmol/L (3.5-5.1); Sodium 132 mmol/L (137-145)
[2020-06-09] MEDS: SYMBICORT 160-4.5 MCG INHALER INHALATION SCH ×2 (08:30→20:24)
[2020-06-09] MEDS: IPRATROPIUM-ALBUTEROL 3 ML NEB INHALATION SCH ×4 (08:30→20:24)
--- NOTE | 2020-06-09 08:31 | XR ---
EXAMINATION TYPE: XR chest 2V DATE OF EXAM: 06/09/2020 COMPARISON: 06/08/2020 HISTORY: Shortness of breath TECHNIQUE: Frontal and lateral views of the chest are obtained. FINDINGS: Scattered senescent parenchymal changes noted. Hyperinflation compatible with COPD. Scattered areas of peripheral infiltrates persist with mild interval improvement noted. Continued fol low-up advised. Heart size is stable. Mediastinal structures are stable and grossly unremarkable. No evidence for hilar prominence. Degenerative changes dorsal spine. IMPRESSION: 1. Scattered areas of peripheral infiltrates persist with mild interval improvement noted. Continued follow-up advised.
[2020-06-09 08:57] LABS: C Reactive Protein 37.6 mg/L (<10.0)
[2020-06-09 09:39] LABS: African American GFR (CKD) 83.2 (60.0-200.0); Non-African American GFR(CKD) 71.8 (60.0-200.0)
--- NOTE | 2020-06-09 10:49 | P.PN ---
Subjective Progress Note Date: 06/09/20 Subjective 79-year-old male patient of Dr. guallpa with long-standing history of CAD post AL with history of PCI and stent placement of the right coronary artery disease over 10 years ago who is known to have history of hypertension hyperlipidemia and previous history of tobacco dependency patient has been doing natural management for many years started noticing significant shortness of breath and decrease endurance when attempted to walk and ambulate was seen Dr. FRANK patel and end up going for stress test showed moderate area of infarct ischemic change patient ended up going for heart cath on 03/09/2020 finding was consistent with 80 percentile blockage of the LAD, 70% blockage in the mid LAD, 90% blockage of the circumflex and 95% blockage of the RCA, underwent 4 vessel bypass surgery on 2019 and was sent to the ICU on mechanical ventilation. Postoperatively e xperienced atrial fibrillation/atrial flutter , also underwent synchronized cardioversion with return to normal sinus rhythm. Patient also received 1 unit of packed RBC while at [facility] for acute blood loss anemia. He was also found to have urinary retention for which he was placed on Soria catheter and was sent to inpatient rehab at [facility]. Patient was given iron infusion at [facility] and 2 attempts were made to remove Soria catheter without any success. Patient is started on Flomax and proscar to help with urine retention. Patient was noted to be short of breath at inpatient rehab on 04/25 sec t o left pleural effusion, developed worsening shortness of breath requiring brief stay at ICU. Chest CT was obtained that showed an congestive heart failure with mild infiltrate with failed attempt at thoracentesis with minimal output. The echo suggested an EF of 50% Urine and blood culture was was positive for Serratia and patient was placed on cefepime by Dr. Hightower. On 05/06 was transferred back to [facility] for superficial sternal incision infection positive for staph epi. Patient completed 4 weeks of IV daptomycin and follows up with wound care under Dr. Hightower as outpatient. Patient wears wound VAC gets changed every Friday and Friday and in the wound Center every Friday. Since patient continued to have urinary retention with failed attempts to remove it patient was discharged on Soria catheter with outpatient follow-up with urology. Patient has upcoming appointment on 06/06 for possible urodynamic studies. He was doing well until a few days ago when he was unable to walk to his car without getting shortness of breath. Patient has seen his rubble placer Dr. Knowles and Dr. Little areas bowel outpatient within the last 1 week and was told he is doing well. Some of his medications were adjusted as outpatient. Patient endorses cough with mild phlegm production. He denies any chest pain or increased drainage from the wound. He follows every week at [facility] and has been told his sternal incision is healing well. Patient denies any change in bowel movements or blood in the stools. He denies any nausea or vomiting. On evaluation in the ER patient was found to have a temp of 97.8 pulse 85 respiratory rate 16 blood pressure 109/58 oxygen saturation 91% on 2 L of oxygen. Patient does not wear oxygen at home. On evaluation of his last patient continues to have a low hemoglobin 7.1, MCV 103.5 platelet 455 ESR has worsened since the beginning of May to 102, CRP increased from 25-139. ProBNP is 2560. Albumin is 2.8 pro-calcitonin ordered. Legionella antigen ordered. Mycoplasma IgM ordered COVID 19 pending. Continue broad-spectrum antibiotic with vancomycin and cefepime. Infectious disease consult placed. Cardiothoracic surgery consulted. Lasix initiated at 40 IV twice a day continue metolazone and 5 mg by mouth daily. 06/05: Patient was evaluated today noted to be sitting in bedside chair. Patient still has complaints of mild shortness of breath, denies any chest pain. Hemoglobin did drop today to 6.1, 1 unit PRBCs ordered. Will check fecal occult blood. Urology has been consulted for his urinary retention. Repeat chest x- ray shows cardiomegaly and prominent pulmonary vascular markings scattered infiltrate and possible pneumonia although his Pro-calcitonin was 0.05, he continues on cefepime and vancomycin. Wound VAC is scheduled to be changed today, infectious disease is on consult. 06/06: patient seen resting in chair this morning. patient received 1 unit of packed RBCs yesterday hemoglobin is 7.1 today. vital signs are stable, patient remains afebrile pulse rate 69, respirations 14, blood pressure 102/63, pulse ox 97% on room air. chest x-ray showed diffuse pleural parenchymal changes are stable superimposed on background of COPD. code in 19 testing was negative. 06/07: Patient was evaluated at bedside today. Repeat hemoglobin was 7.3 this a.m., will transfuse 1 more unit of packed RBCs today. Lasix was increased to 40 mg twice a day. Sputum culture was discussed with ID azithromycin was added and will continue to monitor per IDs recommendations. Blood cultures were negative after 72 hours. Vital signs are stable, patient is afebrile, heart rate 73, blood pressure 110/61, pulse ox 96% on room air. 06/08: Patient evaluated sitting in bedside chair, reports feeling a little bit better today. Patient was transfused with 1 unit RBCs yesterday hemoglobin 7.8 today. Chest x-ray showed scattered areas of patchy infiltrate are seen bilaterally overall is stable. We'll continue Lasix 40 mg twice a day. Vitals are stable, patient is afebrile, heart rate 70, blood pressure 104/52, pulse ox 92% on room air. Plan for discharge possibly tomorrow. 06/09: Patient seen sitting in bedside chair again this morning. Reports his breathing is better today. Chest x-ray this morning showed mild interval improvement. Hemoglobin is stable at 7.4, sodium 132, BUN 25, creatinine 0.98. Vital signs are stable, patient remains afebrile, pulse rate 80, blood pressure 101/61, pulse ox 93% on room air. Continue antibiotics per IDs recommendations. Hopefully plan for discharge tomorrow if stable. - Exam - Constitutional General appearance: cooperative, no acute distress - EENT Eyes: anicteric sclerae, pupil equal and round , normal appearance ENT: hearing grossly normal - Neck Neck: no lymphadenopathy, normal ROM, JVP absent - Respiratory Respiratory: bilateral: Lung sounds diminished throughout.- Cardiovascular Rhythm: regular Heart sounds: normal: S1, S2 Abnormal Heart Sounds: no systolic murmur, no diastolic murmur. - Gastrointestinal General gastrointestinal: normal bowel sounds, soft, non tender, soria catheter remains in place - Integumentary Integumentary: no rash, sternal wound packed with dry dressing and wound vac - Neurologic Neurologic: No gross motor or sensory deficit located no abnormality - Musculoskeletal Musculoskeletal: gait normal, strength equal bilaterally - Psychiatric Psychiatric: A&O x's 3, appropriate affect Objective - Vital Signs Vital signs: Vital Signs Temp 97.7 F 06/09/20 07:00 Pulse 76 06/09/20 08:40 Resp 18 06/09/20 00:19 BP 101/61 10/02/20 07:00 Pulse Ox 93 L 06/09/20 07:00 Intake & Output 06/08/20 06/09/20 06/09/20 18:59 06:59 18:59 Intake Total 500 Output Total 1500 1700 Balance -1000 -1700 Weight 80 kg Intake: Oral 500 Output: Urine 1500 1700 Other: Voiding Method Indwelling Catheter Indwelling Catheter # Voids 3 # Bowel Movements 1 - Labs CBC & Chem 7: 06/09/20 06:22 06/09/20 06:22 Labs: Abnormal Lab Results - Last 24 Hours (Table) 06/08/20 06/08/20 06/09/20 Range/Units 16:35 20:20 06:22 RBC 2.46 L (4.30-5.90) m/uL Hgb 7.4 L (13.0-17.5) gm/dL Hct 24.5 L (39.0-53.0) % MCHC 30.2 L (31.0-37.0) g/dL RDW 18.1 H (11.5-15.5) % Lymphocytes # 0.8 L (1.0-4.8) k/uL Sodium (137-145) mmol/L BUN (9-20) mg/dL Glucose (74-99) mg/dL POC Glucose (mg/dL) 215 H 279 H (75-99) mg/dL C-Reactive Protein (<10.0) mg/L 06/09/20 06/09/20 Range/Units 06:22 07:59 RBC (4.30-5.90) m/uL Hgb (13.0-17.5) gm/dL Hct (39.0-53.0) % MCHC (31.0-37.0) g/dL RDW (11.5-15.5) % Lymphocytes # (1.0-4.8) k/uL Sodium 132 L (137-145) mmol/L BUN 25 H (9-20) mg/dL Glucose 154 H (74-99) mg/dL POC Glucose (mg/dL) 144 H (75-99) mg/dL C-Reactive Protein 37.6 H (<10.0) mg/L Microbiology - Last 24 Hours (Table) 06/06/20 12:30 Gram Stain - Final Sputum Sputum Culture - Final Benita albicans 06/04/20 08:35 Blood Culture - Preliminary Blood No Growth after 96 hours Assessment and Plan Assessment: Plan: 1 acute hypoxic respiratory failure a candidate to acute diastolic congestive heart failure with possible healthcare associated pneumonia. continue DuoNeb as needed for shortness of breath. Sputum culture. Lasix 40 mg twice a day. Cardiothoracic surgery consulted. Continue cefepime and vancomycin for broader coverage, and azithromycin IV was added. Infectious disease consulted. 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 mucinex 600 q12 . I and O monitoring, daily weight 2 Post surgical superficial sternal infection status post I and D, wears wound vac, changed every fri, fri and friday. Wound culture was staph epi at [facility], no growth at [facility] . completed daptomycin as outpatient 3. CAUTI bacteremia secondary to Serratia. Completed cefepime as outpatient. Continues to have Soria catheter for urinary retention 4. H/o triple vessel coronary disease s/p remote inferior wall AL with RCA stent, post 4 vessel coronary artery bypass grafting with KEANE to the LAD, left radial arterial graft to the OM, SVG to the PDA, SVG to the diagonal with left radial artery harvest along with left lower extremity endoscopy Vein harvest on 04/13. On aspirin 325 mg, Lipitor 40 mg by mouth daily 5. Postop atrial flutter/ atrial fibrillation status post clip ligation of the left atrial appendage and cardioversion. On Lopressor. Patient is not on eliquis , which was discontinued during stay 6. 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 on Flomax and Finasteride 5 mg by mouth daily. Follows up with urology as outpatient 7. Acute on chronic anemia with bone marrow suppression status post multiple transfusions during last visit and iron infusion at [facility]. Continue daily CBC. Transfuse if hemoglobin less than 7. Continue iron supplementation daily patient needs to see an oncologist for assessment of anemia. Oncology consult placed 8. Systolic congestive heart failure with ejection fraction 50% with [id number] left ventricular dysfunction. Last echo obtained on 05/03 9. Hypertension. Continue Lopressor. 10. Hyperlipidemia: atorvastatin 40 mg daily resume medication. 11. History of osteoarthritis post right total knee arthroplasty. 12. Hyperglycemia. NovoLog scale. 13. DVT prophylaxis: heparin q 12 14. GI prophylaxis: Pantoprazole 40 by mouth with breakfast CODE STATUS: Full code. Patient will be admitted for minimum of 2 night stay The above impression and plan of care have been discussed and directed by signing physician. Graciela Pinon nurse practitioner acting as scribe for signing physician.
--- NOTE | 2020-06-09 10:52 | P.PN ---
Subjective Progress Note Date: 06/09/20 CHIEF COMPLAINT: afib HISTORY OF PRESENT ILLNESS: Patient examined at the bedside. Patient denies chest pain or pressure. Patient states his shortness of breath is improving today. He complains of a dry nonproductive cough. He remains on lasix 40mg PO BID. fluid balance of the last 24 hours is -2700cc. Vital signs stable. PHYSICAL EXAM: VITAL SIGNS: Reviewed. GENERAL: Well-developed in no acute distress. NECK: Supple. No JVD or thyromegaly LUNGS: Respirations even and unlabored. Lungs diminished. No rales noted. HEART: Regular rate and rhythm. S1 and S2 heard. Wound vac to sternal region noted. EXTREMITIES: Normal range of motion. No clubbing or cyanosis. Peripheral pulses intact. No lower extremity edema ASSESSMENT: Shortness of breath secondary to anemia and mild heart failure Coronary artery disease s/p bypass grafting Paroxysmal atrial fibrillation s/p cardioversion, not on anti-coagulation secondary to anemia. Maintaining sinus mechanism. Anemia Hypertension Dyslipidemia Acute on chronic systolic heart failure, EF 40-45% Increase weakness and fatigue History of BPH with urinary retention Sternal wound infection with wound vac in place PLAN: Continue oral lasix Monitor kidney function Accurate I&O Daily weights Stable for discharge from a cardiac perspective. Will defer to internal medicine. We will sign off. Nurse practitioner note has been reviewed by physician. Signing provider agrees with the documented findings, assessment, and plan of care. Objective - Vital Signs Vital signs: Vital Signs Temp 97.7 F 06/09/20 07:00 Pulse 76 06/09/20 08:40 Resp 18 06/09/20 00:19 BP 101/61 06/09/20 07:00 Pulse Ox 93 L 06/09/20 07:00 Intake & Output 06/08/20 06/09/20 06/09/20 18:59 06:59 18:59 Intake Total 500 Output Total 1500 1700 Balance -1000 -1700 Weight 80 kg Intake: Oral 500 Output: Urine 1500 1700 Other: Voiding Method Indwelling Catheter Indwelling Catheter # Voids 3 # Bowel Movements 1 - Labs CBC & Chem 7: 06/09/20 06:22 06/09/20 06:22 Labs: Abnormal Lab Results - Last 24 Hours (Table) 06/08/20 06/08/20 06/09/20 Range/Units 16:35 20:20 06:22 RBC 2.46 L (4.30-5.90) m/uL Hgb 7.4 L (13.0-17.5) gm/dL Hct 24.5 L (39.0-53.0) % MCHC 30.2 L (31.0-37.0) g/dL RDW 18.1 H (11.5-15.5) % Lymphocytes # 0.8 L (1.0-4.8) k/uL Sodium (137-145) mmol/L BUN (9-20) mg/dL Glucose (74-99) mg/dL POC Glucose (mg/dL) 215 H 279 H (75-99) mg/dL C-Reactive Protein (<10.0) mg/L 06/09/20 06/09/20 Range/Units 06:22 07:59 RBC (4.30-5.90) m/uL Hgb (13.0-17.5) gm/dL Hct (39.0-53.0) % MCHC (31.0-37.0) g/dL RDW (11.5-15.5) % Lymphocytes # (1.0-4.8) k/uL Sodium 132 L (137-145) mmol/L BUN 25 H (9-20) mg/dL Glucose 154 H (74-99) mg/dL POC Glucose (mg/dL) 144 H (75-99) mg/dL C-Reactive Protein 37.6 H (<10.0) mg/L Microbiology - Last 24 Hours (Table) 06/04/20 08:35 Blood Culture - Preliminary Blood No Growth after 120 hours 06/06/20 12:30 Gram Stain - Final Sputum Sputum Culture - Final Benita albicans
--- NOTE | 2020-06-09 11:19 | P.PN ---
Subjective Progress Note Date: 06/09/20 Principal diagnosis: Shortness of breath, afebrile, no leukocytosis, pro-calcitonin 0.05, lactic acid 1.3, likely from systolic heart failure; superficial sternal incision infection, surface culture positive for staph epi, deep wound culture negative, current wound VAC in place, acute on chronic anemia. Previous medical history of coronary artery disease, status post remote inferior wall NC with RCA stent, status post four-vessel CABG 04/15/2020, with postoperative acute blood loss anemia status post transfusion, atrial fibrillation/flutter status post clip ligation of the left atrial appendage and successful cardioversion, urinary retention with Grimm catheter replacement, Serratia UTI, left pleural effusion with unsuccessful attempted thoracentesis, mild to moderate left ventricular dysfunction, chronic systolic heart failure, preoperative EF 40-45%, EF 50% on TTE 05/03, TTE 06/05 EF 40-45%, mild mitral valve regurgitation, 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 Does continue to stay he feels better every day although doesn't feel quite ready to go home. He remains afebrile without leukocytosis. Remains on cefepime, vancomycin, and azithromycin. IV solumedrol added by pulmonology for bronchospasm. No other new concerns. Objective - Vital Signs Vital signs: Vital Signs Temp 97.7 F 06/09/20 07:00 Pulse 76 06/09/20 08:40 Resp 18 06/09/20 00:19 BP 101/61 06/09/20 07:00 Pulse Ox 93 L 06/09/20 07:00 Intake & Output 06/08/20 06/09/20 06/09/20 18:59 06:59 18:59 Intake Total 500 Output Total 1500 1700 Balance -1000 -1700 Weight 80 kg Intake: Oral 500 Output: Urine 1500 1700 Other: Voiding Method Indwelling Catheter Indwelling Catheter # Voids 3 # Bowel Movements 1 - Constitutional General appearance: Present: cooperative, no acute distress - Respiratory Details: Lungs sounds diminished bilaterally with expiratory wheezes present. Respirations even, nonlabored. Currently on room air, although patient keeps taking off and putting on oxygen. Able to achieve 1500 mL on his incentive spirometry. Strong cough. - Cardiovascular Details: S1, S2 present. Regular rate and rhythm, sinus rhythm on telemetry. Sternum stable. Palpable peripheral pulses bilaterally. No edema present. No calf pain or tenderness noted - Gastrointestinal Gastrointestinal Comment(s): Abdomen soft, nontender, nondistended. Active bowel sounds present 4 quadrants. Tolerating diet. Positive daily bowel movements per patient - Genitourinary Genitourinary Comment(s): Grimm present draining clear, yellow urine. - Integumentary Integumentary Comment(s): Skin is warm and dry with evidence of good perfusion. Anterior chest incision with wound VAC in place - Neurologic Neurologic: Present: CNII-XII intact - Musculoskeletal Musculoskeletal: Present: gait normal, strength equal bilaterally - Psychiatric Psychiatric: Present: A&O x's 3, appropriate affect, intact judgment & insight - Allied health notes Allied health notes reviewed: nursing - Labs CBC & Chem 7: 06/09/20 06:22 06/09/20 06:22 Labs: Abnormal Lab Results - Last 24 Hours (Table) 06/08/20 06/08/20 06/09/20 Range/Units 16:35 20:20 06:22 RBC 2.46 L (4.30-5.90) m/uL Hgb 7.4 L (13.0-17.5) gm/dL Hct 24.5 L (39.0-53.0) % MCHC 30.2 L (31.0-37.0) g/dL RDW 18.1 H (11.5-15.5) % Lymphocytes # 0.8 L (1.0-4.8) k/uL Sodium (137-145) mmol/L BUN (9-20) mg/dL Glucose (74-99) mg/dL POC Glucose (mg/dL) 215 H 279 H (75-99) mg/dL C-Reactive Protein (<10.0) mg/L 06/09/20 06/09/20 Range/Units 06:22 07:59 RBC (4.30-5.90) m/uL Hgb (13.0-17.5) gm/dL Hct (39.0-53.0) % MCHC (31.0-37.0) g/dL RDW (11.5-15.5) % Lymphocytes # (1.0-4.8) k/uL Sodium 132 L (137-145) mmol/L BUN 25 H (9-20) mg/dL Glucose 154 H (74-99) mg/dL POC Glucose (mg/dL) 144 H (75-99) mg/dL C-Reactive Protein 37.6 H (<10.0) mg/L Microbiology - Last 24 Hours (Table) 06/04/20 08:35 Blood Culture - Preliminary Blood No Growth after 120 hours 06/06/20 12:30 Gram Stain - Final Sputum Sputum Culture - Final Benita albicans - Imaging and Cardiology Chest x-ray: image reviewed Assessment and Plan Assessment: 1. Shortness of breath, afebrile, no leukocytosis, pro-calcitonin 0.05, lactic acid 1.3, likely systolic heart failure, sputum culture positive for benita 2. Superficial sternal incision infection, surface culture positive for staph epi, deep wound culture negative, current wound VAC in place 3. History of coronary artery disease, status post remote inferior wall NC with RCA stent, status post four-vessel CABG 04/15/2020, with postoperative acute blood loss anemia status post transfusion, atrial fibrillation/flutter status post clip ligation of the left atrial appendage and successful cardioversion, urinary retention with Grimm catheter replacement, Serratia UTI, left pleural effusion with unsuccessful attempted thoracentesis 4. Mild to moderate left ventricular dysfunction, chronic systolic heart failure, preoperative EF 40-45%, EF 50% on TTE 05/03, TTE on 06/05 40-45% 5. Mild mitral valve regurgitation 6. Moderately dilated ascending aorta 4.2 cm 7. History of hypertension, currently borderline hypotensive 8. Hyperlipidemia 9. Previous tobacco dependence 10. Remote history of pneumonia 11. BPH with continued urinary retention followed by urology 12. Family history of premature coronary artery disease 13. Acute on chronic anemia this admission Plan: 1. Wound VAC will be changed today, continue to change Friday, Friday, and Friday. 2. Antibiotic management per Dr. Chris from infectious disease. 3. Continue aspirin, statin and beta branden. 4. GI and DVT prophylaxis. 5. Encourage use of his incentive spirometry 10 times every hour while awake. 6. Continue to monitor daily labs and chest x-rays. 7. Increase activity as tolerated, ambulate in hallway, out of bed for all meals. PT/OT consulted. 8. Continue to monitor strict in accurate I's and O's. Monitor daily weights with standing scale, not bed scale. 9. Continue postoperative CABG discharge instructions. Continue to remind postoperative lifting restrictions for a total of 12 weeks post operative. 10. Medical management and other comorbidities per primary care service. 11. Grimm catheter and urinary retention management per urology recommendations. 12. Bronchodilators, steroids per pulmonology. 13. Patient's blood sugars elevated, likely from steroids. Needs better blood sugar control to promote healing. 14. More recommendations to follow based on patient's clinical course. Time with Patient: Greater than 30
[2020-06-09 12:10] LABS: Glucose,Whole Blood 253 mg/dL (75-99)
--- NOTE | 2020-06-09 13:20 | P.PN ---
Subjective Progress Note Date: 06/09/20 Principal diagnosis: Shortness of breath, weakness, lower extremity swelling 79-year-old white male patient with recent history of four-vessel coronary artery bypass grafting on 04/15/2020, and patient did develop superficial sternal wound infection requiring debridement, wound VAC placement, and antibiotics. Patient did have a victor hugo postoperative course and was discharged to inpatient rehab following his surgery, he did have postoperative atrial fibrillation, urinary tract infection related to Serratia, he also had a left pleural effusion with unsuccessful attempt at thoracentesis. Patient was also hospitalized at [facility] once after his surgery for sternal wound infection, he was treated with antibiotics, discharged home on daptomycin and cefepime. Patient was recovering well at home, however she developed increasing shortness of breath, nonproductive cough, she denied any fever or chills, and patient came into the hospital for reevaluation. Admission chest x- ray showed interstitial pulmonary infiltrates with small pleural effusions, CT c hest was obtained showing moderately sized bilateral pleural effusions appear to be improved from old exam, moderate cardiomegaly, new bilateral extensive peripheral pulmonary airspace infiltrates consistent with inflammatory disease. Patient still has the wound VAC on his sternal incision, with minimal drainage, it is being changed on Friday basis, he was started on a combination of vancomycin and cefepime. In addition patient felt very weak and fatigued, developed some mild lower extremity swelling. No leukocytosis on his labs, admission lab work showed white cell count of 10.6, hemoglobin 7.1, she is not significantly worse from his last admission, no evidence of bleeding, platelet count is 455, INR is 1.0, sodium was 1:30, potassium is 4.0, chloride is 95, CO2 is 30, BUN is 42, creatinine is 1.2, lactic acid is 1.3, troponin was negative at less than 0.012, proBNP was 2560, CRP was 139, COVID 19 was negative, urine Legionella antigen was negative, mycoplasma IgG was elevated 2.37, for which azithromycin was added to antibiotic coverage. On today's exam patient is awake and alert, in no acute distress, currently on 2 L of oxygen. Assessment sent percent, hemodynamically patient is stable, he has had no fever or chills, he is on maintenance dose of oral Lasix at 40 mg twice daily, antibiotics, breathing treatments, he states she is breathing better, no cough with production of some mucous On 06/08/2020 patient seen in follow-up on a general medical surgical floor. Patient is awake and alert, oriented 3, patient is on activities of oxygen with pulse ox of 90-94%, hemodynamically stable, afebrile. Wound VAC remains in place and the sternal incision with minimal drainage, patient is cefepime and vancomycin, and azithromycin. Patient is on oral Lasix, nebulized bronchodilators, his very wheezy today, we were holding off on initiating steroids, in view of shortness of breath and a bronchospastic we'll add 6 doses of IV Solu-Medrol. On 06/09/2020 patient seen in follow-up on a general medical surgical floor. Doing well, no acute events overnight, remains on 2 L of oxygen pulse ox is 93- 90%, hemodynamically stable, no fever or chills, breathing seems to be comfortable, today's chest x-ray has been reviewed showing scattered areas of peripheral infiltrates with mild interval improvement, patient remains on breathing treatments, yesterday we added 6 doses of IV steroids in view of increased bronchial spasticity. He remains on antibiotics for sternal wound infection. Urine culture only showed Benita albicans, blood cultures have s hown no growth, wound VAC is on the sternal wound. Today's labs have been noted, white blood cell count is 4.7, hemoglobin is 7.4, sodium is 132, the rest of the lites and renal profile were unremarkable. CRP is trending down Objective - Vital Signs Vital signs: Vital Signs Temp 97.7 F 06/09/20 07:00 Pulse 72 06/09/20 12:02 Resp 18 06/09/20 00:19 BP 101/61 06/09/20 07:00 Pulse Ox 93 L 06/09/20 07:00 Intake & Output 06/08/20 06/09/20 06/09/20 18:59 06:59 18:59 Intake Total 500 Output Total 1500 1700 Balance -1000 -1700 Weight 80 kg Intake: Oral 500 Output: Urine 1500 1700 Other: Voiding Method Indwelling Catheter Indwelling Catheter # Voids 3 # Bowel Movements 1 - Exam GENERAL EXAM: Alert, very pleasant, 71-year-old white male, currently on 2 L of oxygen pulse ox of 94% comfortable in no apparent distress. HEAD: Normocephalic/atraumatic. EYES: Normal reaction of pupils, equal size. Conjunctiva pink, sclera white. NOSE: Clear with pink turbinates. THROAT: No erythema or exudates. NECK: No masses, no JVD, no thyroid enlargement, no adenopathy. CHEST: No chest wall deformity. Symmetrical expansion. Wound VAC applied to sternal wound, sternal wound is clean dry and intact, minimal drainage in the canister LUNGS: Equal air entry with diffuse wheezes CVS: Regular rate and rhythm, normal S1 and S2, no gallops, no murmurs, no rubs ABDOMEN: Soft, nontender. No hepatosplenomegaly, normal bowel sounds, no guarding or rigidity. EXTREMITIES: No clubbing, no edema, no cyanosis, 2+ pulses and upper and lower extremities. MUSCULOSKELETAL: Muscle strength and tone normal. SPINE: No scoliosis or deformity SKIN: No rashes CENTRAL NERVOUS SYSTEM: Alert and oriented -3. No focal deficits, tone is normal in all 4 extremities. PSYCHIATRIC: Alert and oriented -3. Appropriate affect. Intact judgment and insight. - Labs CBC & Chem 7: 06/09/20 06:22 06/09/20 06:22 Labs: Abnormal Lab Results - Last 24 Hours (Table) 06/08/20 06/08/20 06/09/20 Range/Units 16:35 20:20 06:22 RBC 2.46 L (4.30-5.90) m/uL Hgb 7.4 L (13.0-17.5) gm/dL Hct 24.5 L (39.0-53.0) % MCHC 30.2 L (31.0-37.0) g/dL RDW 18.1 H (11.5-15.5) % Lymphocytes # 0.8 L (1.0-4.8) k/uL Sodium (137-145) mmol/L BUN (9-20) mg/dL Glucose (74-99) mg/dL POC Glucose (mg/dL) 215 H 279 H (75-99) mg/dL C-Reactive Protein (<10.0) mg/L 06/09/20 06/09/20 06/09/20 Range/Units 06:22 07:59 12:08 RBC (4.30-5.90) m/uL Hgb (13.0-17.5) gm/dL Hct (39.0-53.0) % MCHC (31.0-37.0) g/dL RDW (11.5-15.5) % Lymphocytes # (1.0-4.8) k/uL Sodium 132 L (137-145) mmol/L BUN 25 H (9-20) mg/dL Glucose 154 H (74-99) mg/dL POC Glucose (mg/dL) 144 H 253 H (75-99) mg/dL C-Reactive Protein 37.6 H (<10.0) mg/L Microbiology - Last 24 Hours (Table) 06/04/20 08:35 Blood Culture - Preliminary Blood No Growth after 120 hours 06/06/20 12:30 Gram Stain - Final Sputum Sputum Culture - Final Benita albicans Assessment and Plan Plan: Assessment: #1. Shortness of breath, most likely related to acute exacerbation of congestive heart failure with systolic dysfunction, doubt possibility of underlying pneumonia, procalcitonin level was negative, no leukocytosis, no fever. Mycoplasma IgG was elevated suggesting remote history of infection, no active infection #2. Recent history of sternal wound infection, patient has a wound VAC in place just changed on Friday basis, patient has been on IV antibiotics in the form of daptomycin and cefepime on an outpatient basis. Current antibiotic coverage includes vancomycin and cefepime #3. Recent history of left pleural effusion, with history of unsuccessful thoracentesis, patient is maintained on oral Lasix 40 mg twice daily #4. Recent history of four-vessel coronary bypass grafting in April 2020, the patient had a complicated course, requiring discharge to inpatient rehab, and recurrent rehospitalization posterior wound infection, urinary tract infection, and left sided pleural effusion #5. History of coronary artery disease status post bypass grafting and previous stenting #6. History of hypertension #7. Hyperlipidemia #8. Prior history of myocardial infarction Plan: We'll continue with current medical treatment, patient is improving, breathing is improving, less bronchospastic and dyspneic, encourage deep breathing and coughing, today chest x-ray has been reviewed showing improving peripheral infiltrates. Continue with antibiotics, ID service is following. We'll continue to follow I performed a history & physical examination of the patient and discussed their management with my nurse practitioner, Amanda Hercules. I reviewed the nurse practitioner's note and agree with the documented findings and plan of care. Lung sounds are positive for diminished breath sounds. The findings and the impression was discussed with the patient. I attest to the documentation by the nurse practitioner. Time with Patient: Less than 30
[2020-06-09 14:23] VITALS: BMI 27.6
[2020-06-09 16:48] LABS: Glucose,Whole Blood 212 mg/dL (75-99)
--- NOTE | 2020-06-09 18:45 | P.PN ---
Subjective Progress Note Date: 06/09/20 Objective - Vital Signs Vital signs: Vital Signs Temp 97.7 F 06/09/20 07:00 Pulse 72 06/09/20 12:02 Resp 18 06/09/20 00:19 BP 101/61 06/09/20 07:00 Pulse Ox 93 L 06/09/20 07:00 Intake & Output 06/08/20 06/09/20 06/09/20 18:59 06:59 18:59 Intake Total 500 Output Total 1500 1700 Balance -1000 -1700 Weight 80 kg Intake: Oral 500 Output: Urine 1500 1700 Other: Voiding Method Indwelling Catheter Indwelling Catheter # Voids 3 # Bowel Movements 1 - Exam - Constitutional General appearance: Present: average body habitus, cooperative, no acute distress - EENT Eyes: Present: anicteric sclerae, EOMI ENT: Present: hearing grossly normal - Respiratory Details: respirations are unlabored at rest - Musculoskeletal Musculoskeletal: Present: generalized weakness - Psychiatric Psychiatric: Present: A&O x's 3, appropriate affect, intact judgment & insight - Labs CBC & Chem 7: 06/09/20 06:22 06/09/20 06:22 Labs: Abnormal Lab Results - Last 24 Hours (Table) 06/08/20 06/08/20 06/09/20 Range/Units 16:35 20:20 06:22 RBC 2.46 L (4.30-5.90) m/uL Hgb 7.4 L (13.0-17.5) gm/dL Hct 24.5 L (39.0-53.0) % MCHC 30.2 L (31.0-37.0) g/dL RDW 18.1 H (11.5-15.5) % Lymphocytes # 0.8 L (1.0-4.8) k/uL Sodium (137-145) mmol/L BUN (9-20) mg/dL Glucose (74-99) mg/dL POC Glucose (mg/dL) 215 H 279 H (75-99) mg/dL C-Reactive Protein (<10.0) mg/L 06/09/20 06/09/20 06/09/20 Range/Units 06:22 07:59 12:08 RBC (4.30-5.90) m/uL Hgb (13.0-17.5) gm/dL Hct (39.0-53.0) % MCHC (31.0-37.0) g/dL RDW (11.5-15.5) % Lymphocytes # (1.0-4.8) k/uL Sodium 132 L (137-145) mmol/L BUN 25 H (9-20) mg/dL Glucose 154 H (74-99) mg/dL POC Glucose (mg/dL) 144 H 253 H (75-99) mg/dL C-Reactive Protein 37.6 H (<10.0) mg/L Microbiology - Last 24 Hours (Table) 06/04/20 08:35 Blood Culture - Preliminary Blood No Growth after 120 hours 06/06/20 12:30 Gram Stain - Final Sputum Sputum Culture - Final Benita albicans Assessment and Plan Plan: Assessment and Plan Macrocytic anemia - Haptoglobin increased, no hemolysis - Hemoglobin 7.4 today - Continue to monitor CBC daily - Patient has low iron and saturation with a normal ferritin, could be related to transfusions patient has had within the last month. - With wound VAC and active wound care, would hold off on any parenteral iron infusions at this time. - Transfuse to keep hemoglobin 7 or higher unless patient is symptomatic at this time. Patient is also being followed by Cardiology, Cardiothoracic surgery, Urology Physician Attest: I have completed the full history and physical and agree with above dictation, dictated as a scribe
[2020-06-09 20:20] LABS: Glucose,Whole Blood 257 mg/dL (75-99)
[2020-06-09] MEDS: SENNOSIDES-DOCUSATE SODIUM 1 EACH TAB PO SCH (20:20)
[2020-06-09] MEDS: ATORVASTATIN 40 MG TAB PO SCH (20:23)
--- NOTE | 2020-06-09 21:20 | PN ---
PROGRESS NOTE DATE OF SERVICE: 06/09/2020 REASON FOR FOLLOWUP: 1. Sternal wound infection. 2. Possible pneumonia. INTERVAL HISTORY: Patient is currently afebrile. The patient is breathing more comfortably. The breathing improved after start of steroids. The patient denies having any chest pain. No nausea, no vomiting. No abdominal pain or diarrhea. PHYSICAL EXAMINATION: Blood pressure 105/53 with a pulse of 90, temperature 98. He is 95% on room air. General description: Elderly male lying in bed in no distress. Respiratory system: Unlabored breathing, decreased intensity of breath sounds. No wheeze. HEART: S1, S2. Regular rate and rhythm. Abdomen soft, no tenderness. LABS: Hemoglobin 7.4, white count 4.7. BUN of 25, creatinine 0.98. Sputum with Benita albicans. Blood culture so far negative. DIAGNOSTIC IMPRESSION AND PLAN: 1. Patient admitted to this hospital with increasing shortness of breath which is multifactorial with possible fluid overload and component of pneumonia. The patient covered with Zithromax, steroid has been added because of the wheezing to continue along with bronchodilator. 2. Sternal wound infection. Continue local wound care with wound VAC and daptomycin and monitor clinical course closely. MMODL / IJN: [id number] /
[2020-06-10] MEDS ORDERED: VANCOMYCIN TROUGH DUE 1 EACH MISC MISCELLANE ONE (07:00)
[2020-06-10 07:15] LABS: Anisocytosis Slight; Basophils % (A) 0 %; Eosinophils % (A) 0 %; HGB 7.2 gm/dL (13.0-17.5); Hypochromasia Marked; Lymphocytes % (A) 12 %; MCHC 30.1 g/dL (31.0-37.0); MCV 99.8 fL (80.0-100.0); Macrocytosis Slight; Monocytes # (A) 0.2 k/uL (0-1.0); Monocytes % (A) 2 %; Neutrophils # (A) 6.9 k/uL (1.3-7.7); Neutrophils % (A) 85 %; Platelet Count 498 k/uL (150-450); RDW 18.2 % (11.5-15.5); WBC 8.2 k/uL (3.8-10.6)
[2020-06-10 07:44] LABS: Glucose,Whole Blood 168 mg/dL (75-99)
[2020-06-10] MEDS: CEFEPIME 2 GM in SODIUM CHLORIDE 0.9% 100 ML IVPB SCH ×2 (07:45→20:52)
[2020-06-10] MEDS: METOPROLOL TARTRATE 12.5 MG TAB PO SCH ×2 (07:46→20:51)
[2020-06-10] MEDS: AZITHROMYCIN 500 MG TAB PO SCH (07:46)
[2020-06-10] MEDS: TAMSULOSIN 0.4 MG CAP.ER.24H PO SCH (07:46)
[2020-06-10] MEDS: MIDODRINE 5 MG TAB PO SCH ×3 (07:46→17:06)
[2020-06-10] MEDS: FERROUS SULFATE 325 MG TAB PO SCH ×2 (07:47→17:06)
[2020-06-10] MEDS: PANTOPRAZOLE 40 MG TABLET PO SCH (07:47)
[2020-06-10] MEDS: guaiFENesin 600 MG TABLET.ER PO SCH ×2 (07:47→20:51)
[2020-06-10] MEDS: FINASTERIDE 5 MG TAB PO SCH (07:47)
[2020-06-10] MEDS: FUROSEMIDE 40 MG TAB PO SCH ×2 (07:47→17:06)
[2020-06-10] MEDS: ASPIRIN 325 MG TAB PO SCH (07:47)
[2020-06-10] MEDS: HEPARIN SODIUM,PORCINE 5,000 UNIT/ML 1 ML VIAL SQ SCH ×2 (07:47→20:52)
[2020-06-10] MEDS: MULTIVITAMINS, THERA 1 EACH TAB PO SCH (07:47)
[2020-06-10] MEDS: ASCORBIC ACID 500 MG TAB PO SCH ×2 (07:47→17:05)
[2020-06-10] MEDS: VANCOMYCIN 1,500 MG in SODIUM CHLORIDE 0.9% 250 ML IVPB SCH ×2 (07:50→23:58)
[2020-06-10] MEDS: SYMBICORT 160-4.5 MCG INHALER INHALATION SCH ×2 (08:31→20:36)
[2020-06-10] MEDS: IPRATROPIUM-ALBUTEROL 3 ML NEB INHALATION SCH ×4 (08:31→20:36)
--- NOTE | 2020-06-10 09:34 | XR ---
EXAMINATION TYPE: XR chest 2V DATE OF EXAM: 06/10/2020 COMPARISON: Prior chest x-ray 06/09/2020 HISTORY: Status post cardiac surgery TECHNIQUE: Frontal and lateral views of the chest are obtained. FINDINGS: Findings are similar to prior exam. Patient is post median sternotomy and the heart remain s enlarged, there is atrial appendage clipping placement. Blunting of the left costophrenic angles ag ain seen, there is no pneumothorax. Some prominence of interstitium is again seen, patchy density not ed, left-sided PICC line is again seen, tip is overlying the subclavian vein on the left. Prominent l keely volumes are consistent with underlying COPD. IMPRESSION: Bilateral pleural effusions, correlate for interstitial edema, consider pneumonia, edema , additional follow-up recommended
[2020-06-10 09:58] LABS: African American GFR (CKD) 83.2 (60.0-200.0); Albumin/Globulin Ratio 1.3 (1.60-3.17); Anion Gap 6.3 mmol/L (4.00-12.00); Calcium 8.5 mg/dL (8.7-10.3); Carbon Dioxide 26.7 mmol/L (21.6-31.8); Globulin 2.3 g/dL (1.6-3.3); Non-African American GFR(CKD) 71.8 (60.0-200.0); Potassium 5.2 mmol/L (3.5-5.5); Total Bilirubin 0.3 mg/dL (0.2-1.2); Total Protein 5.3 g/dL (6.2-8.2)
--- NOTE | 2020-06-10 10:17 | P.PN ---
Subjective Progress Note Date: 06/10/20 Principal diagnosis: Shortness of breath, afebrile, no leukocytosis, pro-calcitonin 0.05, lactic acid 1.3, likely from systolic heart failure; superficial sternal incision infection, surface culture positive for staph epi, deep wound culture negative, current wound VAC in place, acute on chronic anemia. Previous medical history of coronary artery disease, status post remote inferior wall NE with RCA stent, status post four-vessel CABG 04/15/2020, with postoperative acute blood loss anemia status post transfusion, atrial fibrillation/flutter status post clip ligation of the left atrial appendage and successful cardioversion, urinary retention with Grimm catheter replacement, Serratia UTI, left pleural effusion with unsuccessful attempted thoracentesis, mild to moderate left ventricular dysfunction, chronic systolic heart failure, preoperative EF 40-45%, EF 50% on TTE 05/03, TTE 06/05 EF 40-45%, mild mitral valve regurgitation, 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 Does continue to stay he feels better every day, feels ready to go home today if okay with all services. He remains afebrile without leukocytosis. Remains on cefepime, vancomycin, and azithromycin. No other new concerns. Objective - Vital Signs Vital signs: Vital Signs Temp 97.8 F 06/10/20 07:00 Pulse 82 06/10/20 08:45 Resp 18 06/10/20 07:00 BP 120/67 06/10/20 07:00 Pulse Ox 95 06/10/20 07:00 Intake & Output 06/09/20 06/10/20 06/10/20 18:59 06:59 18:59 Intake Total 200 Output Total 2400 Balance 200 -2400 Weight 80 kg 81.6 kg Intake: Oral 200 Output: Urine 2400 Other: Voiding Method Indwelling Catheter # Voids 3 - Constitutional General appearance: Present: cooperative, no acute distress - Respiratory Details: Lungs sounds diminished bilaterally. Respirations even, nonlabored. Currently on room air with oxygen saturation 95%. Able to achieve 1500 mL on his incentive spirometry. Strong cough. - Cardiovascular Details: S1, S2 present. Regular rate and rhythm, sinus rhythm on telemetry. Sternum stable. Palpable peripheral pulses bilaterally. No edema present. No calf pain or tenderness noted - Gastrointestinal Gastrointestinal Comment(s): Abdomen soft, nontender, nondistended. Active bowel sounds present 4 quadrants. Tolerating diet. Positive daily bowel movements per patient - Genitourinary Genitourinary Comment(s): Grimm present draining clear, yellow urine. - Integumentary Integumentary Comment(s): Skin is warm and dry with evidence of good perfusion. Anterior chest incision with wound VAC in place - Neurologic Neurologic: Present: CNII-XII intact - Musculoskeletal Musculoskeletal: Present: gait normal, strength equal bilaterally - Psychiatric Psychiatric: Present: A&O x's 3, appropriate affect, intact judgment & insight - Allied health notes Allied health notes reviewed: nursing - Labs CBC & Chem 7: 06/10/20 06:26 06/10/20 06:26 Labs: Abnormal Lab Results - Last 24 Hours (Table) 06/09/20 06/09/20 06/09/20 Range/Units 12:08 16:46 20:19 RBC (4.30-5.90) m/uL Hgb (13.0-17.5) gm/dL Hct (39.0-53.0) % MCHC (31.0-37.0) g/dL RDW (11.5-15.5) % Plt Count (150-450) k/uL BUN (9.0-27.0) mg/dL BUN/Creatinine Ratio (12.00-20.00) Ratio Glucose (70-110) mg/dL POC Glucose (mg/dL) 253 H 212 H 257 H (75-99) mg/dL Calcium (8.7-10.3) mg/dL Total Protein (6.2-8.2) g/dL Albumin (3.80-4.90) g/dL Albumin/Globulin Ratio (1.60-3.17) g/dL 06/10/20 06/10/20 06/10/20 Range/Units 06:26 06:26 07:18 RBC 2.40 L (4.30-5.90) m/uL Hgb 7.2 L (13.0-17.5) gm/dL Hct 24.0 L (39.0-53.0) % MCHC 30.1 L (31.0-37.0) g/dL RDW 18.2 H (11.5-15.5) % Plt Count 498 H (150-450) k/uL BUN 38.0 H (9.0-27.0) mg/dL BUN/Creatinine Ratio 38.00 H (12.00-20.00) Ratio Glucose 141 H (70-110) mg/dL POC Glucose (mg/dL) 168 H (75-99) mg/dL Calcium 8.5 L (8.7-10.3) mg/dL Total Protein 5.3 L (6.2-8.2) g/dL Albumin 3.00 L (3.80-4.90) g/dL Albumin/Globulin Ratio 1.30 L (1.60-3.17) g/dL Microbiology - Last 24 Hours (Table) 06/04/20 08:35 Blood Culture - Preliminary Blood No Growth after 120 hours - Imaging and Cardiology Chest x-ray: report reviewed, image reviewed Assessment and Plan Assessment: 1. Shortness of breath, afebrile, no leukocytosis, pro-calcitonin 0.05, lactic acid 1.3, likely systolic heart failure, sputum culture positive for william only 2. Superficial sternal incision infection, surface culture positive for staph epi, deep wound culture negative, current wound VAC in place 3. History of coronary artery disease, status post remote inferior wall NE with RCA stent, status post four-vessel CABG 04/15/2020, with postoperative acute blood loss anemia status post transfusion, atrial fibrillation/flutter status post clip ligation of the left atrial appendage and successful cardioversion, urinary retention with Grimm catheter replacement, Serratia UTI, left pleural effusion with unsuccessful attempted thoracentesis 4. Mild to moderate left ventricular dysfunction, chronic systolic heart failure, preoperative EF 40-45%, EF 50% on TTE 05/03, TTE on 06/05 40-45% 5. Mild mitral valve regurgitation 6. Moderately dilated ascending aorta 4.2 cm 7. History of hypertension, currently borderline hypotensive 8. Hyperlipidemia 9. Previous tobacco dependence 10. Remote history of pneumonia 11. BPH with continued urinary retention followed by urology 12. Family history of premature coronary artery disease 13. Acute on chronic anemia this admission Plan: 1. Wound VAC changed yesterday, continue to change Friday, Friday, and . Home care can continue to change wound VAC on Mondays and Fridays, patient to have wound VAC change on Wednesdays in the wound care center with Dr. Pittman 2. Antibiotic management per Dr. Chris from infectious disease. 3. Continue aspirin, statin and beta branden. 4. GI and DVT prophylaxis. 5. Encourage use of his incentive spirometry 10 times every hour while awake. 6. Continue to monitor daily labs and chest x-rays. 7. Increase activity as tolerated, ambulate in hallway, out of bed for all meals. PT/OT consulted. 8. Continue to monitor strict in accurate I's and O's. Monitor daily weights with standing scale, not bed scale. 9. Continue postoperative CABG discharge instructions. Continue to remind postoperative lifting restrictions for a total of 12 weeks post operative. 10. Medical management and other comorbidities per primary care service. 11. Grimm catheter and urinary retention management per urology recommendations. 12. Bronchodilators, steroids per pulmonology. 13. Patient may be discharged to home from cardiothoracic surgery standpoint. He can follow-up in the office with Dr. Olivo at the end of June for his 3 month follow-up, we will call him with an appointment Time with Patient: Greater than 30
--- NOTE | 2020-06-10 10:33 | P.PN ---
Subjective Progress Note Date: 06/10/20 79-year-old male patient of Dr. guallpa with long-standing history of CAD post NE with history of PCI and stent placement of the right coronary artery disease over 10 years ago who is known to have history of hypertension hyperlipidemia and previous history of tobacco dependency patient has been doing natural management for many years started noticing significant shortness of breath and decrease endurance when attempted to walk and ambulate was seen Dr. FRANK patel and end up going for stress test showed moderate area of infarct ischemic change patient ended up going for heart cath on 03/09/2020 finding was consistent with 80 percentile blockage of the LAD, 70% blockage in the mid LAD, 90% blockage of the circumflex and 95% blockage of the RCA, underwent 4 vessel bypass surgery on 2019 and was sent to the ICU on mechanical ventilation. Postoperatively experienced atrial fibrillation/atrial flutter , also underwent synchronized cardioversion with return to normal sinus rhythm. Patient also received 1 unit of packed RBC while at [facility] for acute blood loss anemia. He was also found to have urinary retention for which he was placed on Grimm catheter and was sent to inpatient rehab at [facility]. Patient was given iron infusion at [facility] and 2 attempts were made to remove Grimm catheter without any success. Patient is started on Flomax and proscar to help with urine retention. Patient was noted to be short of breath at inpatient rehab on 04/25 sec t o left pleural effusion, developed worsening shortness of breath requiring brief stay at ICU. Chest CT was obtained that showed an congestive heart failure with mild infiltrate with failed attempt at thoracentesis with minimal output. The echo suggested an EF of 50% Urine and blood culture was was positive for Serratia and patient was placed on cefepime by Dr. Hightower. On 05/06 was transferred back to [facility] for superficial sternal incision infection positive for staph epi. Patient completed 4 weeks of IV daptomycin and follows up with wound care under Dr. Hightower as outpatient. Patient wears wound VAC gets changed every Friday and Friday and in the wound Center every Friday. Since patient continued to have urinary retention with failed attempts to remove it patient was discharged on Grimm catheter with outpatient follow-up with urology. Patient has upcoming appointment on 06/06 for possible urodynamic studies. He was doing well until a few days ago when he was unable to walk to his car without getting shortness of breath. Patient has seen his drier tender naphthalene Dr. Knowles and Dr. Little areas bowel outpatient within the last 1 week and was told he is doing well. Some of his medications were adjusted as outpatient. Patient endorses cough with mild phlegm production. He denies any chest pain or increased drainage from the wound. He follows every week at Wound Center and has been told his sternal incision is healing well. Patient denies any change in bowel movements or blood in the stools. He denies any nausea or vomiting. On evaluation in the ER patient was found to have a temp of 97.8 pulse 85 respiratory rate 16 blood pressure 109/58 oxygen saturation 91% on 2 L of oxygen. Patient does not wear oxygen at home. On evaluation of his last patient continues to have a low hemoglobin 7.1, MCV 103.5 platelet 455 ESR has worsened since the beginning of May to , CRP increased from 25-139. ProBNP is 2560. Albumin is 2.8 pro-calcitonin ordered. Legionella antigen ordered. Mycoplasma IgM ordered COVID 19 pending. Continue broad-spectrum antibiotic with vancomycin and cefepime. Infectious disease consult placed. Cardiothoracic surgery consulted. Lasix initiated at 40 IV twice a day continue metolazone and 5 mg by mouth daily. 06/05: Patient was evaluated today noted to be sitting in bedside chair. Patient still has complaints of mild shortness of breath, denies any chest pain. Hemoglobin did drop today to 6.1, 1 unit PRBCs ordered. Will check fecal occult blood. Urology has been consulted for his urinary retention. Repeat chest x- ray shows cardiomegaly and prominent pulmonary vascular markings scattered infiltrate and possible pneumonia although his Pro-calcitonin was 0.05, he continues on cefepime and vancomycin. Wound VAC is scheduled to be changed today, infectious disease is on consult. 06/06: patient seen resting in chair this morning. patient received 1 unit of packed RBCs yesterday hemoglobin is 7.1 today. vital signs are stable, patient remains afebrile pulse rate 69, respirations 14, blood pressure 102/63, pulse ox 97% on room air. chest x-ray showed diffuse pleural parenchymal changes are stable superimposed on background of COPD. code in 19 testing was negative. 06/07: Patient was evaluated at bedside today. Repeat hemoglobin was 7.3 this a.m., will transfuse 1 more unit of packed RBCs today. Lasix was increased to 40 mg twice a day. Sputum culture was discussed with ID azithromycin was added and will continue to monitor per IDs recommendations. Blood cultures were negative after 72 hours. Vital signs are stable, patient is afebrile, heart rate 73, blood pressure 110/61, pulse ox 96% on room air. 06/08: Patient evaluated sitting in bedside chair, reports feeling a little bit better today. Patient was transfused with 1 unit RBCs yesterday hemoglobin 7.8 today. Chest x-ray showed scattered areas of patchy infiltrate are seen bilaterally overall is stable. We'll continue Lasix 40 mg twice a day. Vitals are stable, patient is afebrile, heart rate 70, blood pressure 104/52, pulse ox 92% on room air. Plan for discharge possibly tomorrow. 06/09: Patient seen sitting in bedside chair again this morning. Reports his breathing is better today. Chest x-ray this morning showed mild interval improvement. Hemoglobin is stable at 7.4, sodium 132, BUN 25, creatinine 0.98. Vital signs are stable, patient remains afebrile, pulse rate 80, blood pressure 101/61, pulse ox 93% on room air. Continue antibiotics per IDs recommendations. Hopefully plan for discharge tomorrow if stable. 06/10: Patient is found sitting up in chair at this time. He has just returned from an x-ray. Patient states that his breathing is improved since yesterday however he still has shortness of breath with exertion. Chest x-ray impression: Bilateral pulmonary effusions correlate for interstitial edema, consider pneumonia, edema. Patient states she is ready to go home today. Patient remains afebrile, pulse rate 82, respirations 18, blood pressure 120/67, 95% on 2 L. WBC 8.2, hemoglobin 7.2, potassium 5.2, BUN 38, creatinine 1.0 Review of systems: Constitutional: No fever, no chills, no night sweats. Reports weight changedecreased. No weakness, fatigue or lethargy. No daytime sleepiness. EENT: No headache. No blurred vision or double vision, no loss of vision. No loss of Hearing, no ringing in the ears, no dizziness. No nasal drainage or congestion. No epistaxis. No sore throat. Lungs: Reports shortness of breath with exertionimproved, no cough, no sputum production. No wheezing. Cardiovascular: No chest pain, no lower extremity edema. No palpitations. No paroxysmal nocturnal dyspnea. No orthopnea. No lightheadedness or dizziness. No syncopal episodes. Abdominal: no abdominal discomfort. No nausea, vomiting. no diarrhea. No con stipation. No bloody or tarry stools. no loss of appetite. Genitourinary: No dysuria, increased frequency, urgency. No urinary retention. Musculoskeletal: No myalgias. No muscle weakness, no gait dysfunction, no frequent falls. No back pain. No neck pain. Integumentary: No wounds, no lesions. No rash or pruritus. No unusual bruising. No change in hair or nails. Neurologic: No aphasia. No facial droop. No change in mentation. No head injury. No headache. No paralysis. No paresthesia. Psychiatric: No depression. No anxiety. No mood swings. Endocrine: No abnormal blood sugars. No weight change. No excessive sweating or thirst. Physical exam: General Appearance: Alert, cooperative, no distress, 79-year-old appears stated age. Neck HEENT: Supple, no lymphadenopathy, no thyroid enlargement, no carotid bruits. Lungs: Diminished, good airflow, no wheezes or rhonchi or deformity Chest Wall: Chest wall normal expansion with deep inspiration no tenderness and no deformity was found on exam, no costochondral pain or discomfort. Negative pressure wound VAC in place Heart: Regular rate and rhythm, S1, S2 normal, no murmur, rub or gallop. Back: Symmetric, no curvature, ROM normal, no CVA tenderness. Abdomen: Soft, non-tender, no rebound or rigidity, no hepatosplenomegaly. Extremities: Extremities normal, atraumatic, no cyanosis or edema. Pulses: 2+ and symmetric. Skin: Skin color, texture, tugor normal, no rashes or lesions. Neurologic: Alert oriented x3 cranial nerves II through XII intact, no motor deficit, no abnormal balance or gait Assessment/Plan: 1 acute hypoxic respiratory failure a candidate to acute diastolic congestive heart failure with possible healthcare associated pneumonia. continue DuoNeb as needed for shortness of breath. Sputum culture. Lasix 40 mg twice a day. Cardiothoracic surgery consulted. Continue cefepime and vancomycin for broader coverage, and azithromycin IV was added. Infectious disease consulted. echo with EF 50 % with [id number] left ventricle dysfunction chronic systolic heart failure mild mitral valve disease regurgitation moderately dilated ascending aorta at 4.0 cm on 05/03 . mucinex 600 q12 . I and O monitoring, daily weight 2 Post surgical superficial sternal infection status post I and D, wound vac, changed every fri, fri and friday. Wound culture was staph epi at [facility], no growth at [facility] . completed daptomycin as outpatient 3. CAUTI bacteremia secondary to Serratia. Completed cefepime as outpatient. Continues to have Grimm catheter for urinary retention 4. H/o triple vessel coronary disease s/p remote inferior wall NE with RCA st ent, post 4 vessel coronary artery bypass grafting with KEANE to the LAD, left radial arterial graft to the OM, SVG to the PDA, SVG to the diagonal with left radial artery harvest along with left lower extremity endoscopy Vein harvest on 04/13. On aspirin 325 mg, Lipitor 40 mg by mouth daily 5. Postop atrial flutter/ atrial fibrillation status post clip ligation of the left atrial appendage and cardioversion. On Lopressor. Patient is not on eliquis , which was discontinued during stay 6. Obstructive uropathy secondary to BPH with urinary retention requiring Grimm catheter placement. on Flomax and Finasteride 5 mg by mouth daily. Follows up with urology as outpatient 7. Acute on chronic anemia with bone marrow suppression status post multiple transfusions during last visit and iron infusion at [facility]. Continue daily CBC. Transfuse if hemoglobin less than 7. Continue iron supplementation daily patient needs to see an oncologist for assessment of anemia. Oncology consult placed 8. Systolic congestive heart failure with ejection fraction 50% with mild-to- moderate left ventricular dysfunction. Last echo obtained on 05/03 9. Hypertension. Continue Lopressor. 10. Hyperlipidemia: atorvastatin 40 mg daily resume medication. 11. History of osteoarthritis post right total knee arthroplasty. 12. Hyperglycemia. NovoLog scale. 13. DVT prophylaxis: heparin q 12 14. GI prophylaxis: Pantoprazole 40 by mouth with breakfast CODE STATUS: Full code. Patient will be admitted for minimum of 2 night stay The above impression and plan of care have been discussed and directed by signing physician. Naomi Salas nurse practitioner acting as scribe for signing physician. Objective - Vital Signs Vital signs: Vital Signs Temp 97.8 F 06/10/20 07:00 Pulse 82 06/10/20 08:45 Resp 18 06/10/20 07:00 BP 120/67 06/10/20 07:00 Pulse Ox 95 06/10/20 07:00 Intake & Output 06/09/20 06/10/20 06/10/20 18:59 06:59 18:59 Intake Total 200 Output Total 2400 Balance 200 -2400 Weight 80 kg 81.6 kg Intake: Oral 200 Output: Urine 2400 Other: Voiding Method Indwelling Catheter # Voids 3 - Labs CBC & Chem 7: 06/10/20 06:26 06/10/20 06:26 Labs: Abnormal Lab Results - Last 24 Hours (Table) 06/09/20 06/09/20 06/09/20 Range/Units 12:08 16:46 20:19 RBC (4.30-5.90) m/uL Hgb (13.0-17.5) gm/dL Hct (39.0-53.0) % MCHC (31.0-37.0) g/dL RDW (11.5-15.5) % Plt Count (150-450) k/uL BUN (9.0-27.0) mg/dL BUN/Creatinine Ratio (12.00-20.00) Ratio Glucose (70-110) mg/dL POC Glucose (mg/dL) 253 H 212 H 257 H (75-99) mg/dL Calcium (8.7-10.3) mg/dL Total Protein (6.2-8.2) g/dL Albumin (3.80-4.90) g/dL Albumin/Globulin Ratio (1.60-3.17) g/dL 06/10/20 06/10/20 06/10/20 Range/Units 06:26 06:26 07:18 RBC 2.40 L (4.30-5.90) m/uL Hgb 7.2 L (13.0-17.5) gm/dL Hct 24.0 L (39.0-53.0) % MCHC 30.1 L (31.0-37.0) g/dL RDW 18.2 H (11.5-15.5) % Plt Count 498 H (150-450) k/uL BUN 38.0 H (9.0-27.0) mg/dL BUN/Creatinine Ratio 38.00 H (12.00-20.00) Ratio Glucose 141 H (70-110) mg/dL POC Glucose (mg/dL) 168 H (75-99) mg/dL Calcium 8.5 L (8.7-10.3) mg/dL Total Protein 5.3 L (6.2-8.2) g/dL Albumin 3.00 L (3.80-4.90) g/dL Albumin/Globulin Ratio 1.30 L (1.60-3.17) g/dL Microbiology - Last 24 Hours (Table) 06/04/20 08:35 Blood Culture - Preliminary Blood No Growth after 120 hours
[2020-06-10 11:21] LABS: Glucose,Whole Blood 184 mg/dL (75-99)
[2020-06-10] MEDS: predniSONE 10 MG TAB PO SCH (12:30)
--- NOTE | 2020-06-10 14:17 | P.PN ---
Subjective Progress Note Date: 06/10/20 Principal diagnosis: Lower extremity swelling, weakness, shortness of breath 79-year-old white male patient with recent history of four-vessel coronary artery bypass grafting on 04/15/2020, and patient did develop superficial sternal wound infection requiring debridement, wound VAC placement, and antibiotics. Patient did have a victor hugo postoperative course and was discharged to inpatient rehab following his surgery, he did have postoperative atrial fibrillation, urinary tract infection related to Serratia, he also had a left pleural effusion with unsuccessful attempt at thoracentesis. Patient was also hospitalized at [facility] once after his surgery for sternal wound infection, he was treated with antibiotics, discharged home on daptomycin and cefepime. Patient was recovering well at home, however she developed increasing shortness of breath, nonproductive cough, she denied any fever or chills, and patient came into the hospital for reevaluation. Admission chest x- ray showed interstitial pulmonary infiltrates with small pleural effusions, CT c hest was obtained showing moderately sized bilateral pleural effusions appear to be improved from old exam, moderate cardiomegaly, new bilateral extensive peripheral pulmonary airspace infiltrates consistent with inflammatory disease. Patient still has the wound VAC on his sternal incision, with minimal drainage, it is being changed on Friday basis, he was started on a combination of vancomycin and cefepime. In addition patient felt very weak and fatigued, developed some mild lower extremity swelling. No leukocytosis on his labs, admission lab work showed white cell count of 10.6, hemoglobin 7.1, she is not significantly worse from his last admission, no evidence of bleeding, platelet count is 455, INR is 1.0, sodium was 1:30, potassium is 4.0, chloride is 95, CO2 is 30, BUN is 42, creatinine is 1.2, lactic acid is 1.3, troponin was negative at less than 0.012, proBNP was 2560, CRP was 139, COVID 19 was negative, urine Legionella antigen was negative, mycoplasma IgG was elevated 2.37, for which azithromycin was added to antibiotic coverage. On today's exam patient is awake and alert, in no acute distress, currently on 2 L of oxygen. Assessment sent percent, hemodynamically patient is stable, he has had no fever or chills, he is on maintenance dose of oral Lasix at 40 mg twice daily, antibiotics, breathing treatments, he states she is breathing better, no cough with production of some mucous On 06/08/2020 patient seen in follow-up on a general medical surgical floor. Patient is awake and alert, oriented 3, patient is on activities of oxygen with pulse ox of 90-94%, hemodynamically stable, afebrile. Wound VAC remains in place and the sternal incision with minimal drainage, patient is cefepime and vancomycin, and azithromycin. Patient is on oral Lasix, nebulized bronchodilators, his very wheezy today, we were holding off on initiating steroids, in view of shortness of breath and a bronchospastic we'll add 6 doses of IV Solu-Medrol. On 06/09/2020 patient seen in follow-up on a general medical surgical floor. Doing well, no acute events overnight, remains on 2 L of oxygen pulse ox is 93- 90%, hemodynamically stable, no fever or chills, breathing seems to be comfortable, today's chest x-ray has been reviewed showing scattered areas of peripheral infiltrates with mild interval improvement, patient remains on breathing treatments, yesterday we added 6 doses of IV steroids in view of increased bronchial spasticity. He remains on antibiotics for sternal wound infection. Urine culture only showed Benita albicans, blood cultures have s hown no growth, wound VAC is on the sternal wound. Today's labs have been noted, white blood cell count is 4.7, hemoglobin is 7.4, sodium is 132, the rest of the lites and renal profile were unremarkable. CRP is trending down Patient is seen today 06/10/2020 in follow-up on the regular medical floor. He is currently sitting up at the bedside. Awake and alert in no acute distress. Denies any shortness of breath, cough or congestion. No fever, chills or night sweats. He is maintaining O2 saturations in the 90s on 2 L/m per nasal cannula. He is status post 2 units of packed red blood cells this admission. Current hemoglobin 7.2. Blood cultures reveal no growth. Sputum culture positive for Benita. White count 8.2. Sodium 136. Potassium 5.2. He remains on bronchodilators, antibiotics in the form of cefepime. Objective - Vital Signs Vital signs: Vital Signs Temp 97.8 F 06/10/20 07:00 Pulse 80 06/10/20 12:15 Resp 18 10/03/20 07:00 BP 120/67 06/10/20 07:00 Pulse Ox 95 06/10/20 07:00 Intake & Output 06/09/20 06/10/20 06/10/20 18:59 06:59 18:59 Intake Total 200 Output Total 2400 Balance 200 -2400 Weight 80 kg 81.6 kg Intake: Oral 200 Output: Urine 2400 Other: Voiding Method Indwelling Catheter Indwelling Catheter # Voids 3 - Exam GENERAL EXAM: Alert, very pleasant, 71-year-old white male, currently on 2 L, comfortable in no apparent distress. HEAD: Normocephalic/atraumatic. EYES: Normal reaction of pupils, equal size. Conjunctiva pink, sclera white. NOSE: Clear with pink turbinates. THROAT: No erythema or exudates. NECK: No masses, no JVD, no thyroid enlargement, no adenopathy. CHEST: No chest wall deformity. Symmetrical expansion. Wound VAC applied to sternal wound, sternal wound is clean dry and intact, minimal drainage in the canister LUNGS: Equal air entry with diffuse wheezes CVS: Regular rate and rhythm, normal S1 and S2, no gallops, no murmurs, no rubs ABDOMEN: Soft, nontender. No hepatosplenomegaly, normal bowel sounds, no guarding or rigidity. EXTREMITIES: No clubbing, no edema, no cyanosis, 2+ pulses and upper and lower extremities. MUSCULOSKELETAL: Muscle strength and tone normal. SPINE: No scoliosis or deformity SKIN: No rashes CENTRAL NERVOUS SYSTEM: No focal deficits, tone is normal in all 4 extremities. PSYCHIATRIC: Alert and oriented -3. Appropriate affect. Intact judgment and insight. - Labs CBC & Chem 7: 06/10/20 06:26 06/10/20 06:26 Labs: Abnormal Lab Results - Last 24 Hours (Table) 06/09/20 06/09/20 06/10/20 Range/Units 16:46 20:19 06:26 RBC (4.30-5.90) m/uL Hgb (13.0-17.5) gm/dL Hct (39.0-53.0) % MCHC (31.0-37.0) g/dL RDW (11.5-15.5) % Plt Count (150-450) k/uL BUN 38.0 H (9.0-27.0) mg/dL BUN/Creatinine Ratio 38.00 H (12.00-20.00) Ratio Glucose 141 H (70-110) mg/dL POC Glucose (mg/dL) 212 H 257 H (75-99) mg/dL Calcium 8.5 L (8.7-10.3) mg/dL Total Protein 5.3 L (6.2-8.2) g/dL Albumin 3.00 L (3.80-4.90) g/dL Albumin/Globulin Ratio 1.30 L (1.60-3.17) g/dL 06/10/20 06/10/20 06/10/20 Range/Units 06:26 07:18 11:16 RBC 2.40 L (4.30-5.90) m/uL Hgb 7.2 L (13.0-17.5) gm/dL Hct 24.0 L (39.0-53.0) % MCHC 30.1 L (31.0-37.0) g/dL RDW 18.2 H (11.5-15.5) % Plt Count 498 H (150-450) k/uL BUN (9.0-27.0) mg/dL BUN/Creatinine Ratio (12.00-20.00) Ratio Glucose (70-110) mg/dL POC Glucose (mg/dL) 168 H 184 H (75-99) mg/dL Calcium (8.7-10.3) mg/dL Total Protein (6.2-8.2) g/dL Albumin (3.80-4.90) g/dL Albumin/Globulin Ratio (1.60-3.17) g/dL Microbiology - Last 24 Hours (Table) 06/04/20 08:35 Blood Culture - Final Blood No Growth after 144 hours Assessment and Plan Assessment: #1. Shortness of breath, most likely related to acute exacerbation of congestive heart failure with systolic dysfunction, doubt possibility of underlying pneumonia, procalcitonin level was negative, no leukocytosis, no fever. Mycoplasma IgG was elevated suggesting remote history of infection, no active infection #2. Recent history of sternal wound infection, patient has a wound VAC in place just changed on Friday basis, patient has been on IV antibiotics in the form of daptomycin and cefepime on an outpatient basis. Current antibiotic coverage includes vancomycin and cefepime #3. Recent history of left pleural effusion, with history of unsuccessful thoracentesis, patient is maintained on oral Lasix 40 mg twice daily #4. Recent history of four-vessel coronary bypass grafting in April 2020, the patient had a complicated course, requiring discharge to inpatient rehab, and recurrent rehospitalization posterior wound infection, urinary tract infection, and left sided pleural effusion #5. History of coronary artery disease status post bypass grafting and previous stenting #6. History of hypertension #7. Hyperlipidemia #8. Prior history of myocardial infarction Plan: The patient was seen and evaluated by Dr. Silva Currently stable from the pulmonary standpoint Still somewhat bronchospastic and wheezy Continue bronchodilators Continue incentive spirometer Increase his activity as tolerated ID for antibiotic recommendations We will continue to follow I, the cosigning physician, performed a history & physical examination of the patient. Lungs sounds with faint end expiratory wheeze. Maintaining good O2 saturations in the 90s on 2 L/m per nasal cannula. I discussed the assessment and plan of care with my nurse practitioner, Maegan Zavala. I attest to the above note as dictated by her.
[2020-06-10] MEDS: ATORVASTATIN 40 MG TAB PO SCH (20:51)
[2020-06-10] MEDS: SENNOSIDES-DOCUSATE SODIUM 1 EACH TAB PO SCH (20:52)
--- NOTE | 2020-06-10 23:37 | PN ---
PROGRESS NOTE DATE OF SERVICE: 06/10/2020 REASON FOR FOLLOWUP: 1. Sternal wound infection. 2. Possible pneumonia. INTERVAL HISTORY: Patient is currently afebrile. The patient is breathing more comfortably. Denies having any chest pain. Minimal cough. No nausea, no vomiting. No abdominal pain or diarrhea. PHYSICAL EXAMINATION: Blood pressure 119/73 with a pulse of 89, temperature of 97.8. He is 95% on 2 L nasal cannula. General description: The patient is an elderly male up in the chair in no distress. Respiratory system: Unlabored breathing. Occasional wheeze. HEART: S1, S2. Regular rate and rhythm. Abdomen soft, no tenderness. Sternal wound is currently covered with a wound VAC. LABS: Hemoglobin 7.8, white count 8.2, BUN of 38, creatinine 1.01. DIAGNOSTIC IMPRESSION AND PLAN: 1. Patient with sternal wound infection. Culture positive for Staph epi on last admission. The patient is currently covered with vancomycin. To continue local wound care with wound VAC. Continue supportive care. 2. The patient with shortness of breath, possible fluid overload with a component of possible pneumonia. Patient is covered with Zithromax. With no evidence of any gram-negative, cefepime will be discontinued and monitor clinical course closely. MMODL / IJN: [id number] /
[2020-06-11 06:37] LABS: Anisocytosis Slight; Hypochromasia Marked; MCH 30.1 pg (25.0-35.0); MCHC 30.3 g/dL (31.0-37.0); MCV 99.5 fL (80.0-100.0); Macrocytosis Slight; Mean Platelet Volume 8.2; Platelet Count 500 k/uL (150-450); RBC 2.31 m/uL (4.30-5.90); WBC 7.5 k/uL (3.8-10.6)
[2020-06-11] MEDS: FINASTERIDE 5 MG TAB PO SCH (07:49)
[2020-06-11] MEDS: MULTIVITAMINS, THERA 1 EACH TAB PO SCH (07:49)
[2020-06-11] MEDS: AZITHROMYCIN 500 MG TAB PO SCH (07:49)
[2020-06-11] MEDS: METOPROLOL TARTRATE 12.5 MG TAB PO SCH ×2 (07:49→20:36)
[2020-06-11] MEDS: guaiFENesin 600 MG TABLET.ER PO SCH ×2 (07:49→20:37)
[2020-06-11] MEDS: HEPARIN SODIUM,PORCINE 5,000 UNIT/ML 1 ML VIAL SQ SCH ×2 (07:49→20:37)
[2020-06-11] MEDS: MIDODRINE 5 MG TAB PO SCH ×3 (07:50→17:14)
[2020-06-11] MEDS: predniSONE 10 MG TAB PO SCH (07:50)
[2020-06-11] MEDS: ASPIRIN 325 MG TAB PO SCH (07:50)
[2020-06-11] MEDS: FUROSEMIDE 40 MG TAB PO SCH ×2 (07:50→15:58)
[2020-06-11] MEDS: ASCORBIC ACID 500 MG TAB PO SCH ×2 (07:50→17:14)
[2020-06-11] MEDS: FERROUS SULFATE 325 MG TAB PO SCH ×2 (07:50→17:14)
[2020-06-11] MEDS: TAMSULOSIN 0.4 MG CAP.ER.24H PO SCH (07:50)
[2020-06-11] MEDS: PANTOPRAZOLE 40 MG TABLET PO SCH (07:50)
[2020-06-11 07:57] LABS: Lymphocytes # (M) 1.13 k/uL (1.0-4.8); Monocytes # (M) 0.45 k/uL (0-1.0); Neutrophils # (M) 5.93 k/uL (1.3-7.7); Neutrophils % (M) 79 %; Nucleated Red Blood Cells 0 /100 WBC (0-0); Total Cells Counted 100
[2020-06-11 07:58] LABS: Stomatocytes Present; Target Cells Present
[2020-06-11] MEDS: IPRATROPIUM-ALBUTEROL 3 ML NEB INHALATION SCH ×4 (09:01→21:17)
[2020-06-11] MEDS: SYMBICORT 160-4.5 MCG INHALER INHALATION SCH ×2 (09:01→21:17)
[2020-06-11] MEDS: CEFEPIME 2 GM in SODIUM CHLORIDE 0.9% 100 ML IVPB SCH ×2 (09:23→20:37)
--- NOTE | 2020-06-11 10:00 | P.PN ---
Subjective Progress Note Date: 06/11/20 Principal diagnosis: Shortness of breath, afebrile, no leukocytosis, pro-calcitonin 0.05, lactic acid 1.3, likely from systolic heart failure; superficial sternal incision infection, surface culture positive for staph epi, deep wound culture negative, current wound VAC in place, acute on chronic anemia. Previous medical history of coronary artery disease, status post remote inferior wall TN with RCA stent, status post four-vessel CABG 04/15/2020, with postoperative acute blood loss anemia status post transfusion, atrial fibrillation/flutter status post clip ligation of the left atrial appendage and successful cardioversion, urinary retention with Grimm catheter replacement, Serratia UTI, left pleural effusion with unsuccessful attempted thoracentesis, mild to moderate left ventricular dysfunction, chronic systolic heart failure, preoperative EF 40-45%, EF 50% on TTE 05/03, TTE 06/05 EF 40-45%, mild mitral valve regurgitation, 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 Does continue to stay he feels better every day, feels ready to go home today however his PICC line fell out and needs to be replaced which can't be done on a Friday. He remains afebrile without leukocytosis. Remains on cefepime, vancomycin, and azithromycin. No other new concerns. Ambulatory in the hallway with assistance. Objective - Vital Signs Vital signs: Vital Signs Temp 98.4 F 06/11/20 07:47 Pulse 80 06/11/20 09:13 Resp 18 06/11/20 07:47 BP 113/66 06/11/20 07:47 Pulse Ox 95 06/11/20 07:47 Intake & Output 06/10/20 06/11/20 06/11/20 18:59 06:59 18:59 Intake Total 350 Output Total 1200 1700 Balance -1200 -1350 Weight 81.6 kg Intake: Intake, IV Titration 350 Amount Cefepime 2 gm In Sodium 100 Chloride 0.9% 100 ml @ 25 mls/hr IVPB Q12HR [facility] Rx #:[id number] Vancomycin 1,500 mg In 250 Sodium Chloride 0.9% 250 ml @ 125 mls/hr IVPB Q16H [facility] Rx#:[id number] Output: Urine 1200 1700 Other: Voiding Method Indwelling Catheter Indwelling Catheter Indwelling Catheter - Constitutional General appearance: Present: cooperative, no acute distress - Respiratory Details: Lungs sounds diminished bilaterally. Respirations even, nonlabored. Currently on room air with oxygen saturation 97%. Able to achieve 1500 mL on his incentive spirometry. Strong cough. - Cardiovascular Details: S1, S2 present. Regular rate and rhythm, sinus rhythm on telemetry. Sternum stable. Palpable peripheral pulses bilaterally. No edema present. No calf pain or tenderness noted - Gastrointestinal Gastrointestinal Comment(s): Abdomen soft, nontender, nondistended. Active bowel sounds present 4 quadrants. Tolerating diet. Positive daily bowel movements per patient - Genitourinary Genitourinary Comment(s): Grimm present draining clear, yellow urine. - Integumentary Integumentary Comment(s): Skin is warm and dry with evidence of good perfusion. Anterior chest incision with wound VAC in place - Neurologic Neurologic: Present: CNII-XII intact - Musculoskeletal Musculoskeletal: Present: gait normal, strength equal bilaterally - Psychiatric Psychiatric: Present: A&O x's 3, appropriate affect, intact judgment & insight - Allied health notes Allied health notes reviewed: nursing - Labs CBC & Chem 7: 06/11/20 05:55 06/10/20 06:26 Labs: Abnormal Lab Results - Last 24 Hours (Table) 06/10/20 06/10/20 06/11/20 Range/Units 06:26 11:16 05:55 RBC 2.31 L (4.30-5.90) m/uL Hgb 7.0 L (13.0-17.5) gm/dL Hct 23.0 L (39.0-53.0) % MCHC 30.3 L (31.0-37.0) g/dL RDW 18.0 H (11.5-15.5) % Plt Count 500 H (150-450) k/uL BUN 38.0 H (9.0-27.0) mg/dL BUN/Creatinine Ratio 38.00 H (12.00-20.00) Ratio Glucose 141 H (70-110) mg/dL POC Glucose (mg/dL) 184 H (75-99) mg/dL Calcium 8.5 L (8.7-10.3) mg/dL Total Protein 5.3 L (6.2-8.2) g/dL Albumin 3.00 L (3.80-4.90) g/dL Albumin/Globulin Ratio 1.30 L (1.60-3.17) g/dL Microbiology - Last 24 Hours (Table) 06/04/20 08:35 Blood Culture - Final Blood No Growth after 144 hours Assessment and Plan Assessment: 1. Shortness of breath, afebrile, no leukocytosis, pro-calcitonin 0.05, lactic acid 1.3, likely systolic heart failure, sputum culture positive for william only 2. Superficial sternal incision infection, surface culture positive for staph epi, deep wound culture negative, current wound VAC in place 3. History of coronary artery disease, status post remote inferior wall TN with RCA stent, status post four-vessel CABG 04/15/2020, with postoperative acute blood loss anemia status post transfusion, atrial fibrillation/flutter status post clip ligation of the left atrial appendage and successful cardioversion, urinary retention with Grimm catheter replacement, Serratia UTI, left pleural effusion with unsuccessful attempted thoracentesis 4. Mild to moderate left ventricular dysfunction, chronic systolic heart failure, preoperative EF 40-45%, EF 50% on TTE 05/03, TTE on 06/05 40-45% 5. Mild mitral valve regurgitation 6. Moderately dilated ascending aorta 4.2 cm 7. History of hypertension, currently borderline hypotensive 8. Hyperlipidemia 9. Previous tobacco dependence 10. Remote history of pneumonia 11. BPH with continued urinary retention followed by urology 12. Family history of premature coronary artery disease 13. Acute on chronic anemia this admission, status post transfusion of 2 units packed red blood cells Plan: 1. Wound VAC changed Friday, continue to change Friday, Friday, and Friday. Home care can continue to change wound VAC on Mondays and Fridays, patient to have wound VAC change on Wednesdays in the wound care center with Dr. Pittman 2. Antibiotic management per Dr. Chris from infectious disease. 3. Continue aspirin, statin and beta branden. 4. GI and DVT prophylaxis. 5. Encourage use of his incentive spirometry 10 times every hour while awake. 6. Continue to monitor daily labs and chest x-rays. 7. Increase activity as tolerated, ambulate in hallway, out of bed for all meals. PT/OT consulted. 8. Continue to monitor strict in accurate I's and O's. Monitor daily weights with standing scale, not bed scale. 9. Continue postoperative CABG discharge instructions. Continue to remind postoperative lifting restrictions for a total of 12 weeks post operative. 10. Medical management and other comorbidities per primary care service. 11. Grimm catheter and urinary retention management per urology recommendations. 12. Bronchodilators, steroids per pulmonology. 13. Patient may be discharged to home from cardiothoracic surgery standpoint. He can follow-up in the office with Dr. Olivo at the end of June for his 3 month follow-up, we will call him with an appointment Time with Patient: Greater than 30
--- NOTE | 2020-06-11 10:32 | P.PN ---
Subjective Progress Note Date: 06/11/20 79-year-old male patient of Dr. guallpa with long-standing history of CAD post W[place] with history of PCI and stent placement of the right coronary artery disease over 10 years ago who is known to have history of hypertension hyperlipidemia and previous history of tobacco dependency patient has been doing natural management for many years started noticing significant shortness of breath and decrease endurance when attempted to walk and ambulate was seen Dr. FRANK patel and end up going for stress test showed moderate area of infarct ischemic change patient ended up going for heart cath on 03/09/2020 finding was consistent with 80 percentile blockage of the LAD, 70% blockage in the mid LAD, 90% blockage of the circumflex and 95% blockage of the RCA, underwent 4 vessel bypass surgery on 2019 and was sent to the ICU on mechanical ventilation. Postoperatively experienced atrial fibrillation/atrial flutter , also underwent synchronized cardioversion with return to normal sinus rhythm. Patient also received 1 unit of packed RBC while at [facility] for acute blood loss anemia. He was also found to have urinary retention for which he was placed on Grimm catheter and was sent to inpatient rehab at [facility]. Patient was given iron infusion at [facility] and 2 attempts were made to remove Grimm catheter without any success. Patient is started on Flomax and proscar to help with urine retention. Patient was noted to be short of breath at inpatient rehab on 04/25 sec t o left pleural effusion, developed worsening shortness of breath requiring brief stay at ICU. Chest CT was obtained that showed an congestive heart failure with mild infiltrate with failed attempt at thoracentesis with minimal output. The echo suggested an EF of 50% Urine and blood culture was was positive for Serratia and patient was placed on cefepime by Dr. Hightower. On 05/06 was transferred back to [facility] for superficial sternal incision infection positive for staph epi. Patient completed 4 weeks of IV daptomycin and follows up with wound care under Dr. Hightower as outpatient. Patient wears wound VAC gets changed every Friday and Friday and in the wound Center every Friday. Since patient continued to have urinary retention with failed attempts to remove it patient was discharged on Grimm catheter with outpatient follow-up with urology. Patient has upcoming appointment on 06/06 for possible urodynamic studies. He was doing well until a few days ago when he was unable to walk to his car without getting shortness of breath. Patient has seen his replenishment specialist Dr. Knowles and Dr. Little areas bowel outpatient within the last 1 week and was told he is doing well. Some of his medications were adjusted as outpatient. Patient endorses cough with mild phlegm production. He denies any chest pain or increased drainage from the wound. He follows every week at [facility] and has been told his sternal incision is healing well. Patient denies any change in bowel movements or blood in the stools. He denies any nausea or vomiting. On evaluation in the ER patient was found to have a temp of 97.8 pulse 85 respiratory rate 16 blood pressure 109/58 oxygen saturation 91% on 2 L of oxygen. Patient does not wear oxygen at home. On evaluation of his last patient continues to have a low hemoglobin 7.1, MCV 103.5 platelet 455 ESR has worsened since the beginning of May to , CRP increased from 25-139. ProBNP is 2560. Albumin is 2.8 pro-calcitonin ordered. Legionella antigen ordered. Mycoplasma IgM ordered COVID 19 pending. Continue broad-spectrum antibiotic with vancomycin and cefepime. Infectious disease consult placed. Cardiothoracic surgery consulted. Lasix initiated at 40 IV twice a day continue metolazone and 5 mg by mouth daily. 06/05: Patient was evaluated today noted to be sitting in bedside chair. Patient still has complaints of mild shortness of breath, denies any chest pain. Hemoglobin did drop today to 6.1, 1 unit PRBCs ordered. Will check fecal occult blood. Urology has been consulted for his urinary retention. Repeat chest x- ray shows cardiomegaly and prominent pulmonary vascular markings scattered infiltrate and possible pneumonia although his Pro-calcitonin was 0.05, he continues on cefepime and vancomycin. Wound VAC is scheduled to be changed today, infectious disease is on consult. 06/06: patient seen resting in chair this morning. patient received 1 unit of packed RBCs yesterday hemoglobin is 7.1 today. vital signs are stable, patient remains afebrile pulse rate 69, respirations 14, blood pressure 102/63, pulse ox 97% on room air. chest x-ray showed diffuse pleural parenchymal changes are stable superimposed on background of COPD. code in 19 testing was negative. 06/07: Patient was evaluated at bedside today. Repeat hemoglobin was 7.3 this a.m., will transfuse 1 more unit of packed RBCs today. Lasix was increased to 40 mg twice a day. Sputum culture was discussed with ID azithromycin was added and will continue to monitor per IDs recommendations. Blood cultures were negative after 72 hours. Vital signs are stable, patient is afebrile, heart rate 73, blood pressure 110/61, pulse ox 96% on room air. 06/08: Patient evaluated sitting in bedside chair, reports feeling a little bit better today. Patient was transfused with 1 unit RBCs yesterday hemoglobin 7.8 today. Chest x-ray showed scattered areas of patchy infiltrate are seen bilaterally overall is stable. We'll continue Lasix 40 mg twice a day. Vitals are stable, patient is afebrile, heart rate 70, blood pressure 104/52, pulse ox 92% on room air. Plan for discharge possibly tomorrow. 06/09: Patient seen sitting in bedside chair again this morning. Reports his breathing is better today. Chest x-ray this morning showed mild interval improvement. Hemoglobin is stable at 7.4, sodium 132, BUN 25, creatinine 0.98. Vital signs are stable, patient remains afebrile, pulse rate 80, blood pressure 101/61, pulse ox 93% on room air. Continue antibiotics per IDs recommendations. Hopefully plan for discharge tomorrow if stable. 06/10: Patient is found sitting up in chair at this time. He has just returned from an x-ray. Patient states that his breathing is improved since yesterday however he still has shortness of breath with exertion. Chest x-ray impression: Bilateral pulmonary effusions correlate for interstitial edema, consider pneumonia, edema. Patient states she is ready to go home today. Patient remains afebrile, pulse rate 82, respirations 18, blood pressure 120/67, 95% on 2 L. WBC 8.2, hemoglobin 7.2, potassium 5.2, BUN 38, creatinine 1.0 06/11: Per nursing patient was found this morning with his PICC line on the floor. Patient had PICC line in place last night sometime during the night the PICC line was removed. Patient denies removing the PICC line himself. No redness or edema noted to the arm. Peripheral IV will be inserted today is scheduled for a new PICC line for tomorrow. For possible discharge home tomorrow. Patient states that he is feeling better today. He is not complaining of any shortness of breath continues to have mild shortness of breath with some exertion. Patient remains afebrile. Wound VAC has been in place. Review of systems: Constitutional: No fever, no chills, no night sweats. Reports weight changedecreased. No weakness, fatigue or lethargy. No daytime sleepiness. EENT: No headache. No blurred vision or double vision, no loss of vision. No loss of Hearing, no ringing in the ears, no dizziness. No nasal drainage or congestion. No epistaxis. No sore throat. Lungs: Reports shortness of breath with exertionimproved, no cough, no sputum production. No wheezing. Cardiovascular: No chest pain, no lower extremity edema. No palpitations. No paroxysmal nocturnal dyspnea. No orthopnea. No lightheadedness or dizziness. No syncopal episodes. Abdominal: no abdominal discomfort. No nausea, vomiting. no diarrhea. No constipation. No bloody or tarry stools. no loss of appetite. Genitourinary: No dysuria, increased frequency, urgency. No urinary retention. Musculoskeletal: No myalgias. No muscle weakness, no gait dysfunction, no frequent falls. No back pain. No neck pain. Integumentary: No wounds, no lesions. No rash or pruritus. No unusual bruising. No change in hair or nails. Neurologic: No aphasia. No facial droop. No change in mentation. No head injury. No headache. No paralysis. No paresthesia. Psychiatric: No depression. No anxiety. No mood swings. Endocrine: No abnormal blood sugars. No weight change. No excessive sweating or thirst. Physical exam: General Appearance: Alert, cooperative, no distress, 79-year-old appears stated age. Neck HEENT: Supple, no lymphadenopathy, no thyroid enlargement, no carotid bruits. Lungs: Diminished, good airflow, no wheezes or rhonchi or deformity Chest Wall: Chest wall normal expansion with deep inspiration no tenderness and no deformity was found on exam, no costochondral pain or discomfort. Negative pressure wound VAC in place Heart: Regular rate and rhythm, S1, S2 normal, no murmur, rub or gallop. Back: Symmetric, no curvature, ROM normal, no CVA tenderness. Abdomen: Soft, non-tender, no rebound or rigidity, no hepatosplenomegaly. Extremities: Extremities normal, atraumatic, no cyanosis or edema. Pulses: 2+ and symmetric. Skin: Skin color, texture, tugor normal, no rashes or lesions. Neurologic: Alert oriented x3 cranial nerves II through XII intact, no motor deficit, no abnormal balance or gait Assessment/Plan: 1 acute hypoxic respiratory failure a candidate to acute diastolic congestive heart failure with possible healthcare associated pneumonia. continue DuoNeb as needed for shortness of breath. Sputum culture. Lasix 40 mg twice a day. Cardiothoracic surgery consulted. Continue cefepime and vancomycin for broader coverage, and azithromycin IV was added. Infectious disease consulted. echo with EF 50 % with [id number] left ventricle dysfunction chronic systolic heart failure mild mitral valve disease regurgitation moderately dilated ascending aorta at 4.0 cm on 05/03 . mucinex 600 q12 . I and O monitoring, daily weight. Reinsert PICC line tomorrow. 2 Post surgical superficial sternal infection status post I and D, wound vac, changed every fri, fri and friday. Wound culture was staph epi at [facility], no growth at [facility] . completed daptomycin as outpatient 3. CAUTI bacteremia secondary to Serratia. Completed cefepime as outpatient. Continues to have Grimm catheter for urinary retention 4. H/o triple vessel coronary disease s/p remote inferior wall WY with RCA stent, post 4 vessel coronary artery bypass grafting with KEANE to the LAD, left radial arterial graft to the OM, SVG to the PDA, SVG to the diagonal with left radial artery harvest along with left lower extremity endoscopy Vein harvest on 04/13. On aspirin 325 mg, Lipitor 40 mg by mouth daily 5. Postop atrial flutter/ atrial fibrillation status post clip ligation of the left atrial appendage and cardioversion. On Lopressor. Patient is not on eliquis , which was discontinued during stay 6. Obstructive uropathy secondary to BPH with urinary retention requiring Grimm catheter placement. on Flomax and Finasteride 5 mg by mouth daily. Follows up with urology as outpatient 7. Acute on chronic anemia with bone marrow suppression status post multiple transfusions during last visit and iron infusion at [facility]. Continue daily CBC. Transfuse if hemoglobin less than 7. Continue iron supplementation daily patient needs to see an oncologist for assessment of anemia. Oncology consult placed 8. Systolic congestive heart failure with ejection fraction 50% with [id number] left ventricular dysfunction. Last echo obtained on 05/03 9. Hypertension. Continue Lopressor. 10. Hyperlipidemia: atorvastatin 40 mg daily resume medication. 11. History of osteoarthritis post right total knee arthroplasty. 12. Hyperglycemia. NovoLog scale. 13. DVT prophylaxis: heparin q 12 14. GI prophylaxis: Pantoprazole 40 by mouth with breakfast CODE STATUS: Full code. Patient will be admitted for minimum of 2 night stay Discharge plan: Possible discharge tomorrow post-PICC line placement home The above impression and plan of care have been discussed and directed by signing physician. Naomi Salas nurse practitioner acting as scribe for signing physician. Objective - Vital Signs Vital signs: Vital Signs Temp 98.4 F 06/11/20 07:47 Pulse 80 06/11/20 09:13 Resp 18 06/11/20 07:47 BP 113/66 06/11/20 07:47 Pulse Ox 95 06/11/20 07:47 Intake & Output 06/10/20 06/11/20 06/11/20 18:59 06:59 18:59 Intake Total 350 Output Total 1200 1700 Balance -1200 -1350 Weight 81.6 kg Intake: Intake, IV Titration 350 Amount Cefepime 2 gm In Sodium 100 Chloride 0.9% 100 ml @ 25 mls/hr IVPB Q12HR [facility] Rx #:[id number] Vancomycin 1,500 mg In 250 Sodium Chloride 0.9% 250 ml @ 125 mls/hr IVPB Q16H [facility] Rx#:[id number] Output: Urine 1200 1700 Other: Voiding Method Indwelling Catheter Indwelling Catheter Indwelling Catheter - Labs CBC & Chem 7: 06/11/20 05:55 06/10/20 06:26 Labs: Abnormal Lab Results - Last 24 Hours (Table) 06/10/20 06/11/20 Range/Units 11:16 05:55 RBC 2.31 L (4.30-5.90) m/uL Hgb 7.0 L (13.0-17.5) gm/dL Hct 23.0 L (39.0-53.0) % MCHC 30.3 L (31.0-37.0) g/dL RDW 18.0 H (11.5-15.5) % Plt Count 500 H (150-450) k/uL POC Glucose (mg/dL) 184 H (75-99) mg/dL Microbiology - Last 24 Hours (Table) 06/04/20 08:35 Blood Culture - Final Blood No Growth after 144 hours
[2020-06-11 11:36] LABS: African American GFR (CKD) 74.1 (60.0-200.0); BUN/Creat Ratio 40.91 Ratio (12.00-20.00); Calcium 8.4 mg/dL (8.7-10.3); Potassium 4.7 mmol/L (3.5-5.5)
--- NOTE | 2020-06-11 14:07 | P.PN ---
Subjective Progress Note Date: 06/11/20 Principal diagnosis: Lower extremity swelling, weakness, shortness of breath 79-year-old white male patient with recent history of four-vessel coronary artery bypass grafting on 04/15/2020, and patient did develop superficial sternal wound infection requiring debridement, wound VAC placement, and antibiotics. Patient did have a victor hugo postoperative course and was discharged to inpatient rehab following his surgery, he did have postoperative atrial fibrillation, urinary tract infection related to Serratia, he also had a left pleural effusion with unsuccessful attempt at thoracentesis. Patient was also hospitalized at [facility] once after his surgery for sternal wound infection, he was treated with antibiotics, discharged home on daptomycin and cefepime. Patient was recovering well at home, however she developed increasing shortness of breath, nonproductive cough, she denied any fever or chills, and patient came into the hospital for reevaluation. Admission chest x- ray showed interstitial pulmonary infiltrates with small pleural effusions, CT c hest was obtained showing moderately sized bilateral pleural effusions appear to be improved from old exam, moderate cardiomegaly, new bilateral extensive peripheral pulmonary airspace infiltrates consistent with inflammatory disease. Patient still has the wound VAC on his sternal incision, with minimal drainage, it is being changed on Friday basis, he was started on a combination of vancomycin and cefepime. In addition patient felt very weak and fatigued, developed some mild lower extremity swelling. No leukocytosis on his labs, admission lab work showed white cell count of 10.6, hemoglobin 7.1, she is not significantly worse from his last admission, no evidence of bleeding, platelet count is 455, INR is 1.0, sodium was 1:30, potassium is 4.0, chloride is 95, CO2 is 30, BUN is 42, creatinine is 1.2, lactic acid is 1.3, troponin was negative at less than 0.012, proBNP was 2560, CRP was 139, COVID 19 was negative, urine Legionella antigen was negative, mycoplasma IgG was elevated 2.37, for which azithromycin was added to antibiotic coverage. On today's exam patient is awake and alert, in no acute distress, currently on 2 L of oxygen. Assessment sent percent, hemodynamically patient is stable, he has had no fever or chills, he is on maintenance dose of oral Lasix at 40 mg twice daily, antibiotics, breathing treatments, he states she is breathing better, no cough with production of some mucous On 06/08/2020 patient seen in follow-up on a general medical surgical floor. Patient is awake and alert, oriented 3, patient is on activities of oxygen with pulse ox of 90-94%, hemodynamically stable, afebrile. Wound VAC remains in place and the sternal incision with minimal drainage, patient is cefepime and vancomycin, and azithromycin. Patient is on oral Lasix, nebulized bronchodilators, his very wheezy today, we were holding off on initiating steroids, in view of shortness of breath and a bronchospastic we'll add 6 doses of IV Solu-Medrol. On 06/09/2020 patient seen in follow-up on a general medical surgical floor. Doing well, no acute events overnight, remains on 2 L of oxygen pulse ox is 93- 90%, hemodynamically stable, no fever or chills, breathing seems to be comfortable, today's chest x-ray has been reviewed showing scattered areas of peripheral infiltrates with mild interval improvement, patient remains on breathing treatments, yesterday we added 6 doses of IV steroids in view of increased bronchial spasticity. He remains on antibiotics for sternal wound infection. Urine culture only showed Benita albicans, blood cultures have s hown no growth, wound VAC is on the sternal wound. Today's labs have been noted, white blood cell count is 4.7, hemoglobin is 7.4, sodium is 132, the rest of the lites and renal profile were unremarkable. CRP is trending down Patient is seen today 06/10/2020 in follow-up on the regular medical floor. He is currently sitting up at the bedside. Awake and alert in no acute distress. Denies any shortness of breath, cough or congestion. No fever, chills or night sweats. He is maintaining O2 saturations in the 90s on 2 L/m per nasal cannula. He is status post 2 units of packed red blood cells this admission. Current hemoglobin 7.2. Blood cultures reveal no growth. Sputum culture positive for Benita. White count 8.2. Sodium 136. Potassium 5.2. He remains on bronchodilators, antibiotics in the form of cefepime. The patient is seen today 06/11/2020 in follow-up on the regular medical floor. He is currently sitting up in bed. Awake and alert in no acute distress. Maintaining good O2 saturations in the mid 90s on room air. He's been afebrile. Hemodynamically stable. He is status post 2 units of packed red blood cells this admission. Today's hemoglobin 7.0. White count 7.5. Platelets 500,000. Sodium 138. Potassium 4.7. Creatinine 1.1. He remains on Symbicort, DuoNeb inhalations, prednisone. Antibiotics in the form of vancomycin, azithromycin and cefepime. The patient did have a PICC line in but unfortunately it came out last night. He'll need a replacement tomorrow and hopefully discharged after that. Objective - Vital Signs Vital signs: Vital Signs Temp 98.4 F 06/11/20 07:47 Pulse 77 06/11/20 12:45 Resp 18 06/11/20 07:47 BP 113/66 06/11/20 07:47 Pulse Ox 95 06/11/20 07:47 Intake & Output 06/10/20 06/11/20 06/11/20 18:59 06:59 18:59 Intake Total 350 Output Total 1200 1700 Balance -1200 -1350 Weight 81.6 kg Intake: Intake, IV Titration 350 Amount Cefepime 2 gm In Sodium 100 Chloride 0.9% 100 ml @ 25 mls/hr IVPB Q12HR [facility] Rx #:[id number] Vancomycin 1,500 mg In 250 Sodium Chloride 0.9% 250 ml @ 125 mls/hr IVPB Q16H [facility] Rx#:[id number] Output: Urine 1200 1700 Other: Voiding Method Indwelling Catheter Indwelling Catheter Indwelling Catheter - Exam GENERAL EXAM: Alert, very pleasant, 71-year-old white male, currently on room air, comfortable in no apparent distress. HEAD: Normocephalic/atraumatic. EYES: Normal reaction of pupils, equal size. Conjunctiva pink, sclera white. NOSE: Clear with pink turbinates. THROAT: No erythema or exudates. NECK: No masses, no JVD, no thyroid enlargement, no adenopathy. CHEST: No chest wall deformity. Symmetrical expansion. Wound VAC applied to sternal wound, sternal wound is clean dry and intact, minimal drainage in the canister LUNGS: Equal air entry with expiratory wheeze CVS: Regular rate and rhythm, normal S1 and S2, no gallops, no murmurs, no rubs ABDOMEN: Soft, nontender. No hepatosplenomegaly, normal bowel sounds, no guarding or rigidity. EXTREMITIES: No clubbing, no edema, no cyanosis, 2+ pulses and upper and lower extremities. MUSCULOSKELETAL: Muscle strength and tone normal. SPINE: No scoliosis or deformity SKIN: No rashes CENTRAL NERVOUS SYSTEM: No focal deficits, tone is normal in all 4 extremities. PSYCHIATRIC: Alert and oriented -3. Appropriate affect. Intact judgment and insight. - Labs CBC & Chem 7: 06/11/20 05:55 06/11/20 05:55 Labs: Abnormal Lab Results - Last 24 Hours (Table) 06/11/20 06/11/20 Range/Units 05:55 05:55 RBC 2.31 L (4.30-5.90) m/uL Hgb 7.0 L (13.0-17.5) gm/dL Hct 23.0 L (39.0-53.0) % MCHC 30.3 L (31.0-37.0) g/dL RDW 18.0 H (11.5-15.5) % Plt Count 500 H (150-450) k/uL BUN 45.0 H (9.0-27.0) mg/dL BUN/Creatinine Ratio 40.91 H (12.00-20.00) Ratio Glucose 111 H (70-110) mg/dL Calcium 8.4 L (8.7-10.3) mg/dL Microbiology - Last 24 Hours (Table) 06/04/20 08:35 Blood Culture - Final Blood No Growth after 144 hours Assessment and Plan Assessment: #1. Shortness of breath, most likely related to acute exacerbation of congestive heart failure with systolic dysfunction, doubt possibility of underlying pneumonia, procalcitonin level was negative, no leukocytosis, no fever. Mycoplasma IgG was elevated suggesting remote history of infection, no active infection #2. Recent history of sternal wound infection, patient has a wound VAC in place just changed on Friday basis, patient has been on IV antibiotics in the form of daptomycin and cefepime on an outpatient basis. Current antibiotic coverage includes vancomycin, azithromycin and cefepime #3. Recent history of left pleural effusion, with history of unsuccessful thoracentesis, patient is maintained on oral Lasix 40 mg twice daily #4. Recent history of four-vessel coronary bypass grafting in April 2020, the patient had a complicated course, requiring discharge to inpatient rehab, and recurrent rehospitalization posterior wound infection, urinary tract infection, and left sided pleural effusion #5. History of coronary artery disease status post bypass grafting and previous stenting #6. History of hypertension #7. Hyperlipidemia #8. Prior history of myocardial infarction Plan: The patient was seen and evaluated by Dr. Silva Currently stable from the pulmonary standpoint Less bronchospastic and wheezy Continue bronchodilators Continue incentive spirometer Increase his activity as tolerated ID for antibiotic recommendations PICC line to be replaced tomorrow Probable discharged We will continue to follow I, the cosigning physician, performed a history & physical examination of the patient. Lungs sounds with faint end expiratory wheeze. Maintaining good O2 sa turations in the 90s on room air. I discussed the assessment and plan of care with my nurse practitioner, Maegan Zavala. I attest to the above note as dictated by her.
[2020-06-11] MEDS: VANCOMYCIN 1,500 MG in SODIUM CHLORIDE 0.9% 250 ML IVPB SCH (15:58)
[2020-06-11] MEDS: ATORVASTATIN 40 MG TAB PO SCH (20:36)
[2020-06-11] MEDS: SENNOSIDES-DOCUSATE SODIUM 1 EACH TAB PO SCH (20:37)
[2020-06-11 20:45] LABS: Glucose,Whole Blood 148 mg/dL (75-99)
[2020-06-12 06:26] LABS: Anisocytosis Slight; HCT 23.3 % (39.0-53.0); Hypochromasia Marked; MCH 29.7 pg (25.0-35.0); MCHC 29.9 g/dL (31.0-37.0); MCV 99.2 fL (80.0-100.0); Macrocytosis Slight; Mean Platelet Volume 7.8; Platelet Count 526 k/uL (150-450); Poikilocytosis Slight; RBC 2.35 m/uL (4.30-5.90); RDW 18.3 % (11.5-15.5); WBC 6.8 k/uL (3.8-10.6)
--- NOTE | 2020-06-12 06:48 | PN ---
PROGRESS NOTE DATE OF SERVICE: 06/11/2020 REASON FOR FOLLOWUP: 1. Sternal wound infection. 2. Possible pneumonia. INTERVAL HISTORY: Patient is currently afebrile. The patient is breathing comfortably. The patient denies having any chest pain, minimal cough. No nausea, no vomiting. No abdominal pain or diarrhea. PHYSICAL EXAMINATION: Blood pressure 123/61 with a pulse of 78, temperature 98.6, 95% on room air. General description is an elderly male lying in bed in no distress. Respiratory system: Unlabored breathing, decreased breath sounds in the base, with no wheeze. Heart S1, S2. Regular rate and rhythm. Abdomen is soft, no tenderness. LABS: Hemoglobin 7.3, white count 7.5, BUN 45, creatinine 1.1. DIAGNOSTIC IMPRESSION AND PLAN: 1. Patient with sternal wound infection with previous culture with Staph epi. The patient is currently on vancomycin. Will recheck antiinflammatory markers and if normalized, may be able to discontinue versus continue short course of IV daptomycin on discharge. 2. Patient with shortness of breath and pulmonary infiltrate. Concern for fluid overload plus-minus component of pneumonia. Patient is covered with Zithromax to continue for another few days. MMODL / IJN: [id number] /
[2020-06-12 07:07] LABS: Eosinophils # (M) 0.07 k/uL (0-0.7); Lymphocytes # (M) 2.45 k/uL (1.0-4.8); Metamyelocytes # (M) 0.07 k/uL (0); Metamyelocytes % 1 %; Monocytes # (M) 0.68 k/uL (0-1.0); Neutrophils % (M) 53 %; Nucleated Red Blood Cells 0 /100 WBC (0-0); Total Cells Counted 200
[2020-06-12 07:09] LABS: Anisocytosis (M) Present; Poikilocytosis (M) Present; RBC Fragments Present
[2020-06-12 07:42] VITALS: BP 121/66; RESP 18; TEMP 97.9
[2020-06-12] MEDS: SYMBICORT 160-4.5 MCG INHALER INHALATION SCH (08:11)
[2020-06-12] MEDS: IPRATROPIUM-ALBUTEROL 3 ML NEB INHALATION SCH ×2 (08:11→11:29)
--- NOTE | 2020-06-12 08:54 | P.PN ---
Subjective Progress Note Date: 06/12/20 Principal diagnosis: Shortness of breath, afebrile, no leukocytosis, pro-calcitonin 0.05, lactic acid 1.3, likely from systolic heart failure; superficial sternal incision infection, surface culture positive for staph epi, deep wound culture negative, current wound VAC in place, acute on chronic anemia. Previous medical history of coronary artery disease, status post remote inferior wall TN with RCA stent, status post four-vessel CABG 04/15/2020, with postoperative acute blood loss anemia status post transfusion, atrial fibrillation/flutter status post clip ligation of the left atrial appendage and successful cardioversion, urinary retention with Grimm catheter replacement, Serratia UTI, left pleural effusion with unsuccessful attempted thoracentesis, mild to moderate left ventricular dysfunction, chronic systolic heart failure, preoperative EF 40-45%, EF 50% on TTE 05/03, TTE 06/05 EF 40-45%, mild mitral valve regurgitation, moderately dilated ascending aorta 4.2 cm, hypertension, hyperlipidemia, previous tobacco dependence, BPH with continued urinary retention followed by urology, family history of premature coronary artery disease Patient's currently sitting up in the recliner in no acute distress talking in the. Continue to feel better every day, feels ready to go home today. Waiting for PICC line placement. He remains afebrile without leukocytosis. Remains on vancomycin and azithromycin. No other new concerns. Ambulatory in the hallway with assistance. Objective - Vital Signs Vital signs: Vital Signs Temp 97.9 F 06/12/20 07:00 Pulse 72 06/12/20 08:28 Resp 18 06/12/20 07:00 BP 121/66 06/12/20 07:00 Pulse Ox 94 L 06/12/20 07:00 Intake & Output 06/11/20 06/12/20 06/12/20 18:59 06:59 18:59 Intake Total 400 100 Output Total 1600 3400 Balance -1200 -3300 Weight 78.9 kg Intake: Intake, IV Titration 100 Amount Cefepime 2 gm In Sodium 100 Chloride 0.9% 100 ml @ 25 mls/hr IVPB Q12HR [facility] Rx #:[id number] Oral 400 Output: Urine 1600 3400 Other: Voiding Method Indwelling Catheter Indwelling Catheter - Constitutional General appearance: Present: cooperative, no acute distress - Respiratory Details: Lungs sounds diminished bilaterally. Respirations even, nonlabored. Currently on room air with oxygen saturation 97%. Able to achieve 1500 mL on his incentive spirometry. Strong cough. - Cardiovascular Details: S1, S2 present. Regular rate and rhythm, sinus rhythm on telemetry. Sternum stable. Palpable peripheral pulses bilaterally. No edema present. No calf pain or tenderness noted - Gastrointestinal Gastrointestinal Comment(s): Abdomen soft, nontender, nondistended. Active bowel sounds present 4 quadrants. Tolerating diet. Positive daily bowel movements per patient - Genitourinary Genitourinary Comment(s): Grimm present draining clear, yellow urine. - Integumentary Integumentary Comment(s): Skin is warm and dry with evidence of good perfusion. Anterior chest incision with wound VAC in place - Neurologic Neurologic: Present: CNII-XII intact - Musculoskeletal Musculoskeletal: Present: gait normal, strength equal bilaterally - Psychiatric Psychiatric: Present: A&O x's 3, appropriate affect, intact judgment & insight - Allied health notes Allied health notes reviewed: nursing - Labs CBC & Chem 7: 06/12/20 05:45 06/11/20 05:55 Labs: Abnormal Lab Results - Last 24 Hours (Table) 06/11/20 06/11/20 06/12/20 Range/Units 05:55 20:44 05:45 RBC 2.35 L (4.30-5.90) m/uL Hgb 7.0 L (13.0-17.5) gm/dL Hct 23.3 L (39.0-53.0) % MCHC 29.9 L (31.0-37.0) g/dL RDW 18.3 H (11.5-15.5) % Plt Count 526 H (150-450) k/uL Metamyelocytes # (Man) 0.07 H (0) k/uL BUN 45.0 H (9.0-27.0) mg/dL BUN/Creatinine Ratio 40.91 H (12.00-20.00) Ratio Glucose 111 H (70-110) mg/dL POC Glucose (mg/dL) 148 H (75-99) mg/dL Calcium 8.4 L (8.7-10.3) mg/dL Assessment and Plan Assessment: 1. Shortness of breath, afebrile, no leukocytosis, pro-calcitonin 0.05, lactic acid 1.3, likely systolic heart failure, sputum culture positive for william only 2. Superficial sternal incision infection, surface culture positive for staph epi, deep wound culture negative, current wound VAC in place 3. History of coronary artery disease, status post remote inferior wall TN with RCA stent, status post four-vessel CABG 04/15/2020, with postoperative acute blood loss anemia status post transfusion, atrial fibrillation/flutter status post clip ligation of the left atrial appendage and successful cardioversion, urinary retention with Grimm catheter replacement, Serratia UTI, left pleural effusion with unsuccessful attempted thoracentesis 4. Mild to moderate left ventricular dysfunction, chronic systolic heart failure, preoperative EF 40-45%, EF 50% on TTE 05/03, TTE on 06/05 40-45% 5. Mild mitral valve regurgitation 6. Moderately dilated ascending aorta 4.2 cm 7. History of hypertension, currently borderline hypotensive 8. Hyperlipidemia 9. Previous tobacco dependence 10. Remote history of pneumonia 11. BPH with continued urinary retention followed by urology 12. Family history of premature coronary artery disease 13. Acute on chronic anemia this admission, status post transfusion of 2 units packed red blood cells Plan: 1. Wound VAC changed Friday, continue to change Friday, Friday, and Friday. Home care can continue to change wound VAC on Mondays and Fridays, patient to have wound VAC change on Wednesdays in the wound care center with Dr. Pittman 2. Antibiotic management per Dr. Chris from infectious disease. 3. Continue aspirin, statin and beta branden. 4. GI and DVT prophylaxis. 5. Encourage use of his incentive spirometry 10 times every hour while awake. 6. Increase activity as tolerated, ambulate in hallway, out of bed for all meals. PT/OT following 7. Continue to monitor strict in accurate I's and O's. Monitor daily weights with standing scale, not bed scale. 8. Continue postoperative CABG discharge instructions. Continue to remind postoperative lifting restrictions for a total of 12 weeks post operative. 9. Medical management and other comorbidities per primary care service. 10. Grimm catheter and urinary retention management per urology recommendations. 11. Bronchodilators, steroids per pulmonology. 12. Patient may be discharged to home from cardiothoracic surgery standpoint. He can follow-up in the office with Dr. Olivo at the end of June for his 3 month follow-up, appointment made and placed on discharge plan, follow with Dr. Pittman in the wound care center this Friday Time with Patient: Greater than 30
[2020-06-12] MEDS: MIDODRINE 5 MG TAB PO SCH ×2 (09:10→12:48)
[2020-06-12] MEDS: ASPIRIN 325 MG TAB PO SCH (09:10)
[2020-06-12] MEDS: FERROUS SULFATE 325 MG TAB PO SCH (09:10)
[2020-06-12] MEDS: ASCORBIC ACID 500 MG TAB PO SCH (09:11)
[2020-06-12] MEDS: METOPROLOL TARTRATE 12.5 MG TAB PO SCH (09:11)
[2020-06-12] MEDS: MULTIVITAMINS, THERA 1 EACH TAB PO SCH (09:11)
[2020-06-12] MEDS: FINASTERIDE 5 MG TAB PO SCH (09:11)
[2020-06-12] MEDS: predniSONE 10 MG TAB PO SCH (09:11)
[2020-06-12] MEDS: TAMSULOSIN 0.4 MG CAP.ER.24H PO SCH (09:12)
[2020-06-12] MEDS: guaiFENesin 600 MG TABLET.ER PO SCH (09:12)
[2020-06-12] MEDS: HEPARIN SODIUM,PORCINE 5,000 UNIT/ML 1 ML VIAL SQ SCH (09:12)
[2020-06-12] MEDS: PANTOPRAZOLE 40 MG TABLET PO SCH (09:12)
[2020-06-12] MEDS: AZITHROMYCIN 500 MG TAB PO SCH (09:12)
[2020-06-12] MEDS: ACETAMINOPHEN TAB 325 MG TAB PO PRN (09:17)
[2020-06-12] MEDS: VANCOMYCIN 1,500 MG in SODIUM CHLORIDE 0.9% 250 ML IVPB SCH ×2 (09:18→13:52)
[2020-06-12] MEDS: FUROSEMIDE 40 MG TAB PO SCH (09:18)
--- NOTE | 2020-06-12 10:22 | P.PN ---
Subjective Progress Note Date: 06/12/20 79-year-old male patient of Dr. guallpa with long-standing history of CAD post IN with history of PCI and stent placement of the right coronary artery disease over 10 years ago who is known to have history of hypertension hyperlipidemia and previous history of tobacco dependency patient has been doing natural management for many years started noticing significant shortness of breath and decrease endurance when attempted to walk and ambulate was seen Dr. FRANK patel and end up going for stress test showed moderate area of infarct ischemic change patient ended up going for heart cath on 03/09/2020 finding was consistent with 80 percentile blockage of the LAD, 70% blockage in the mid LAD, 90% blockage of the circumflex and 95% blockage of the RCA, underwent 4 vessel bypass surgery on 2019 and was sent to the ICU on mechanical ventilation. Postoperatively experienced atrial fibrillation/atrial flutter , also underwent synchronized cardioversion with return to normal sinus rhythm. Patient also received 1 unit of packed RBC while at [facility] for acute blood loss anemia. He was also found to have urinary retention for which he was placed on Grimm catheter and was sent to inpatient rehab at [facility]. Patient was given iron infusion at [facility] and 2 attempts were made to remove Grimm catheter without any success. Patient is started on Flomax and proscar to help with urine retention. Patient was noted to be short of breath at inpatient rehab on 04/25 sec t o left pleural effusion, developed worsening shortness of breath requiring brief stay at ICU. Chest CT was obtained that showed an congestive heart failure with mild infiltrate with failed attempt at thoracentesis with minimal output. The echo suggested an EF of 50% Urine and blood culture was was positive for Serratia and patient was placed on cefepime by Dr. Hightower. On 05/06 was transferred back to [facility] for superficial sternal incision infection positive for staph epi. Patient completed 4 weeks of IV daptomycin and follows up with wound care under Dr. Hightower as outpatient. Patient wears wound VAC gets changed every Friday and Friday and in the wound Center every Friday. Since patient continued to have urinary retention with failed attempts to remove it patient was discharged on Grimm catheter with outpatient follow-up with urology. Patient has upcoming appointment on 06/06 for possible urodynamic studies. He was doing well until a few days ago when he was unable to walk to his car without getting shortness of breath. Patient has seen his ethical hacker Dr. Knowles and Dr. Little areas bowel outpatient within the last 1 week and was told he is doing well. Some of his medications were adjusted as outpatient. Patient endorses cough with mild phlegm production. He denies any chest pain or increased drainage from the wound. He follows every week at Wound Center and has been told his sternal incision is healing well. Patient denies any change in bowel movements or blood in the stools. He denies any nausea or vomiting. On evaluation in the ER patient was found to have a temp of 97.8 pulse 85 respiratory rate 16 blood pressure 109/58 oxygen saturation 91% on 2 L of oxygen. Patient does not wear oxygen at home. On evaluation of his last patient continues to have a low hemoglobin 7.1, MCV 103.5 platelet 455 ESR has worsened since the beginning of May to , CRP increased from 25-139. ProBNP is 2560. Albumin is 2.8 pro-calcitonin ordered. Legionella antigen ordered. Mycoplasma IgM ordered COVID 19 pending. Continue broad-spectrum antibiotic with vancomycin and cefepime. Infectious disease consult placed. Cardiothoracic surgery consulted. Lasix initiated at 40 IV twice a day continue metolazone and 5 mg by mouth daily. 06/05: Patient was evaluated today noted to be sitting in bedside chair. Patient still has complaints of mild shortness of breath, denies any chest pain. Hemoglobin did drop today to 6.1, 1 unit PRBCs ordered. Will check fecal occult blood. Urology has been consulted for his urinary retention. Repeat chest x- ray shows cardiomegaly and prominent pulmonary vascular markings scattered infiltrate and possible pneumonia although his Pro-calcitonin was 0.05, he continues on cefepime and vancomycin. Wound VAC is scheduled to be changed today, infectious disease is on consult. 06/06: patient seen resting in chair this morning. patient received 1 unit of packed RBCs yesterday hemoglobin is 7.1 today. vital signs are stable, patient remains afebrile pulse rate 69, respirations 14, blood pressure 102/63, pulse ox 97% on room air. chest x-ray showed diffuse pleural parenchymal changes are stable superimposed on background of COPD. code in 19 testing was negative. 06/07: Patient was evaluated at bedside today. Repeat hemoglobin was 7.3 this a.m., will transfuse 1 more unit of packed RBCs today. Lasix was increased to 40 mg twice a day. Sputum culture was discussed with ID azithromycin was added and will continue to monitor per IDs recommendations. Blood cultures were negative after 72 hours. Vital signs are stable, patient is afebrile, heart rate 73, blood pressure 110/61, pulse ox 96% on room air. 06/08: Patient evaluated sitting in bedside chair, reports feeling a little bit better today. Patient was transfused with 1 unit RBCs yesterday hemoglobin 7.8 today. Chest x-ray showed scattered areas of patchy infiltrate are seen bilaterally overall is stable. We'll continue Lasix 40 mg twice a day. Vitals are stable, patient is afebrile, heart rate 70, blood pressure 104/52, pulse ox 92% on room air. Plan for discharge possibly tomorrow. 06/09: Patient seen sitting in bedside chair again this morning. Reports his breathing is better today. Chest x-ray this morning showed mild interval improvement. Hemoglobin is stable at 7.4, sodium 132, BUN 25, creatinine 0.98. Vital signs are stable, patient remains afebrile, pulse rate 80, blood pressure 101/61, pulse ox 93% on room air. Continue antibiotics per IDs recommendations. Hopefully plan for discharge tomorrow if stable. 06/10: Patient is found sitting up in chair at this time. He has just returned from an x-ray. Patient states that his breathing is improved since yesterday however he still has shortness of breath with exertion. Chest x-ray impression: Bilateral pulmonary effusions correlate for interstitial edema, consider pneumonia, edema. Patient states she is ready to go home today. Patient remains afebrile, pulse rate 82, respirations 18, blood pressure 120/67, 95% on 2 L. WBC 8.2, hemoglobin 7.2, potassium 5.2, BUN 38, creatinine 1.0 06/11: Per nursing patient was found this morning with his PICC line on the floor. Patient had PICC line in place last night sometime during the night the PICC line was removed. Patient denies removing the PICC line himself. No redness or edema noted to the arm. Peripheral IV will be inserted today is scheduled for a new PICC line for tomorrow. For possible discharge home tomorrow. Patient states that he is feeling better today. He is not complaining of any shortness of breath continues to have mild shortness of breath with some exertion. Patient remains afebrile. Wound VAC has been in place. 06/12: Dr. Chris has ordered C-reactive protein, pro-calcitonin and results are pending. We will then decide if patient requires IV antibiotics. Patient is tentatively scheduled for PICC line insertion today. Patient denies any new complaints. His lungs sounds are improving. He is a wound VAC and Grimm catheter in place. Patient has been provided [facility] and make a follow-up appointment. Pneumonia has been ruled out by [facility]. He has been afebrile, heart rate 63, blood pressure 121/66, pulse ox 94% on room air. WBC 6.8, hemoglobin 7, platelet count 526. We'll plan for discharge later today if Dr. Chris can provide antibiotic recommendations today. Review of systems: Constitutional: No fever, no chills, no night sweats. Reports weight changedecreased. No weakness, fatigue or lethargy. EENT: No headache. No blurred vision or double vision, no loss of vision. No loss of Hearing, no ringing in the ears, no dizziness. No nasal drainage or congestion. No epistaxis. No sore throat. Lungs: Reports shortness of breath with exertionimproved, no cough, no sputum production. No wheezing. Cardiovascular: No chest pain, no lower extremity edema. No palpitations. No paroxysmal nocturnal dyspnea. No orthopnea. No lightheadedness or dizziness. No syncopal episodes. Abdominal: no abdominal discomfort. No nausea, vomiting. no diarrhea. No constipation. No bloody or tarry stools. no loss of appetite. Genitourinary: No dysuria, increased frequency, urgency. No urinary retention. Musculoskeletal: No myalgias. No muscle weakness, no gait dysfunction, no frequent falls. No back pain. No neck pain. Integumentary: No wounds, no lesions. No rash or pruritus. No unusual bruising. No change in hair or nails. Neurologic: No aphasia. No facial droop. No change in mentation. No head injury. No headache. No paralysis. No paresthesia. Psychiatric: No depression. No anxiety. No mood swings. Endocrine: No abnormal blood sugars. No weight change. No excessive sweating or thirst. Physical exam: General Appearance: Alert, cooperative, no distress, 79-year-old male patient resting in chair and appears to be in no acute distress. Neck HEENT: Supple, no lymphadenopathy, no thyroid enlargement, no carotid bruits. Lungs: Diminished, good airflow, no wheezes or rhonchi or deformity Chest Wall: Chest wall normal expansion with deep inspiration no tenderness and no deformity was found on exam, no costochondral pain or discomfort. Negative pressure wound VAC in place Heart: Regular rate and rhythm, S1, S2 normal, no murmur, rub or gallop. Back: Symmetric, no curvature, ROM normal, no CVA tenderness. Abdomen: Soft, non-tender, no rebound or rigidity, no hepatosplenomegaly. Extremities: Extremities normal, atraumatic, no cyanosis or edema. Pulses: 2+ and symmetric. Skin: Skin color, texture, tugor normal, no rashes or lesions. Neurologic: Alert oriented x3 cranial nerves II through XII intact, no motor de ficit, no abnormal balance or gait Assessment/Plan: 1 acute hypoxic respiratory failure a candidate to acute diastolic congestive heart failure with possible healthcare associated pneumonia. continue DuoNeb as needed for shortness of breath. Sputum culture. Lasix 40 mg twice a day. Cardiothoracic surgery consulted. Continue cefepime and vancomycin for broader coverage, and azithromycin IV was added. Infectious disease consulted. echo with EF 50 % with [id number] left ventricle dysfunction chronic systolic heart failure mild mitral valve disease regurgitation moderately dilated ascending aorta at 4.0 cm on 05/03 . mucinex 600 q12 . I and O monitoring, daily weight. Reinsert PICC line--pending Dr. Morales recommendations. 2 Post surgical superficial sternal infection status post I and D, wound vac, changed every fri, fri and friday. Wound culture was staph epi at [facility], no growth at [facility] . completed daptomycin as outpatient 3. CAUTI bacteremia secondary to Serratia. Completed cefepime as outpatient. Continues to have Grimm catheter for urinary retention 4. H/o triple vessel coronary disease s/p remote inferior wall IN with RCA s tent, post 4 vessel coronary artery bypass grafting with KEANE to the LAD, left radial arterial graft to the OM, SVG to the PDA, SVG to the diagonal with left radial artery harvest along with left lower extremity endoscopy Vein harvest on 04/13. On aspirin 325 mg, Lipitor 40 mg by mouth daily 5. Postop atrial flutter/ atrial fibrillation status post clip ligation of the left atrial appendage and cardioversion. On Lopressor. Patient is not on eliquis , which was discontinued during stay 6. Obstructive uropathy secondary to BPH with urinary retention requiring Grimm catheter placement. on Flomax and Finasteride 5 mg by mouth daily. Follows up with urology as outpatient 7. Acute on chronic anemia with bone marrow suppression status post multiple transfusions during last visit and iron infusion at [facility]. Continue daily CBC. Transfuse if hemoglobin less than 7. Continue iron supplementation daily patient needs to see an oncologist for assessment of anemia. Oncology consult placed 8. Systolic congestive heart failure with ejection fraction 50% with mild -to-moderate left ventricular dysfunction. Last echo obtained on 05/03 9. Hypertension. Continue Lopressor. 10. Hyperlipidemia: atorvastatin 40 mg daily resume medication. 11. History of osteoarthritis post right total knee arthroplasty. 12. Hyperglycemia. NovoLog scale. 13. DVT prophylaxis: heparin q 12 14. GI prophylaxis: Pantoprazole 40 by mouth with breakfast CODE STATUS: Full code. Discharge plan: Possible discharge today. Awaiting antibiotic recommendations from Dr. Chris. Lab work is pending. Impression and plan of care have been directed as dictated by the signing physician. Alisson Penny nurse practitioner acting as scribe for signing physician. Objective - Vital Signs Vital signs: Vital Signs Temp 97.9 F 06/12/20 07:00 Pulse 72 06/12/20 08:28 Resp 18 06/12/20 07:00 BP 121/66 06/12/20 07:00 Pulse Ox 94 L 06/12/20 07:00 Intake & Output 06/11/20 06/12/20 06/12/20 18:59 06:59 18:59 Intake Total 400 100 Output Total 1600 3400 Balance -1200 -3300 Weight 78.9 kg Intake: Intake, IV Titration 100 Amount Cefepime 2 gm In Sodium 100 Chloride 0.9% 100 ml @ 25 mls/hr IVPB Q12HR [facility] Rx #:[id number] Oral 400 Output: Urine 1600 3400 Other: Voiding Method Indwelling Catheter Indwelling Catheter Indwelling Catheter - Labs CBC & Chem 7: 06/12/20 05:45 06/11/20 05:55 Labs: Abnormal Lab Results - Last 24 Hours (Table) 06/11/20 06/11/20 06/12/20 Range/Units 05:55 20:44 05:45 RBC 2.35 L (4.30-5.90) m/uL Hgb 7.0 L (13.0-17.5) gm/dL Hct 23.3 L (39.0-53.0) % MCHC 29.9 L (31.0-37.0) g/dL RDW 18.3 H (11.5-15.5) % Plt Count 526 H (150-450) k/uL Metamyelocytes # (Man) 0.07 H (0) k/uL BUN 45.0 H (9.0-27.0) mg/dL BUN/Creatinine Ratio 40.91 H (12.00-20.00) Ratio Glucose 111 H (70-110) mg/dL POC Glucose (mg/dL) 148 H (75-99) mg/dL Calcium 8.4 L (8.7-10.3) mg/dL
[2020-06-12 10:54] LABS: African American GFR (CKD) 83.2 (60.0-200.0); Anion Gap 4.1 mmol/L (4.00-12.00); C Reactive Protein 0.8 mg/dL (0.0-0.8); Calcium 8.4 mg/dL (8.7-10.3); Carbon Dioxide 28.9 mmol/L (21.6-31.8); Non-African American GFR(CKD) 71.8 (60.0-200.0); Potassium 4.4 mmol/L (3.5-5.5)
[2020-06-12 11:31] VITALS: PULSE 68
--- NOTE | 2020-06-12 13:48 | P.PN ---
Subjective Progress Note Date: 06/12/20 Principal diagnosis: Shortness of breath, weakness, lower extremity swelling 79-year-old white male patient with recent history of four-vessel coronary artery bypass grafting on 04/15/2020, and patient did develop superficial sternal wound infection requiring debridement, wound VAC placement, and antibiotics. Patient did have a victor hugo postoperative course and was discharged to inpatient rehab following his surgery, he did have postoperative atrial fibrillation, urinary tract infection related to Serratia, he also had a left pleural effusion with unsuccessful attempt at thoracentesis. Patient was also hospitalized at [facility] once after his surgery for sternal wound infection, he was treated with antibiotics, discharged home on daptomycin and cefepime. Patient was recovering well at home, however she developed increasing shortness of breath, nonproductive cough, she denied any fever or chills, and patient came into the hospital for reevaluation. Admission chest x- ray showed interstitial pulmonary infiltrates with small pleural effusions, CT c hest was obtained showing moderately sized bilateral pleural effusions appear to be improved from old exam, moderate cardiomegaly, new bilateral extensive peripheral pulmonary airspace infiltrates consistent with inflammatory disease. Patient still has the wound VAC on his sternal incision, with minimal drainage, it is being changed on Friday basis, he was started on a combination of vancomycin and cefepime. In addition patient felt very weak and fatigued, developed some mild lower extremity swelling. No leukocytosis on his labs, admission lab work showed white cell count of 10.6, hemoglobin 7.1, she is not significantly worse from his last admission, no evidence of bleeding, platelet count is 455, INR is 1.0, sodium was 1:30, potassium is 4.0, chloride is 95, CO2 is 30, BUN is 42, creatinine is 1.2, lactic acid is 1.3, troponin was negative at less than 0.012, proBNP was 2560, CRP was 139, COVID 19 was negative, urine Legionella antigen was negative, mycoplasma IgG was elevated 2.37, for which azithromycin was added to antibiotic coverage. On today's exam patient is awake and alert, in no acute distress, currently on 2 L of oxygen. Assessment sent percent, hemodynamically patient is stable, he has had no fever or chills, he is on maintenance dose of oral Lasix at 40 mg twice daily, antibiotics, breathing treatments, he states she is breathing better, no cough with production of some mucous On 06/08/2020 patient seen in follow-up on a general medical surgical floor. Patient is awake and alert, oriented 3, patient is on activities of oxygen with pulse ox of 90-94%, hemodynamically stable, afebrile. Wound VAC remains in place and the sternal incision with minimal drainage, patient is cefepime and vancomycin, and azithromycin. Patient is on oral Lasix, nebulized bronchodilators, his very wheezy today, we were holding off on initiating steroids, in view of shortness of breath and a bronchospastic we'll add 6 doses of IV Solu-Medrol. On 06/09/2020 patient seen in follow-up on a general medical surgical floor. Doing well, no acute events overnight, remains on 2 L of oxygen pulse ox is 93- 90%, hemodynamically stable, no fever or chills, breathing seems to be comfortable, today's chest x-ray has been reviewed showing scattered areas of peripheral infiltrates with mild interval improvement, patient remains on breathing treatments, yesterday we added 6 doses of IV steroids in view of increased bronchial spasticity. He remains on antibiotics for sternal wound infection. Urine culture only showed Benita albicans, blood cultures have s hown no growth, wound VAC is on the sternal wound. Today's labs have been noted, white blood cell count is 4.7, hemoglobin is 7.4, sodium is 132, the rest of the lites and renal profile were unremarkable. CRP is trending down On June 12, 2020 patient seen in follow-up on medical surgical floor. He is awake and alert, in no acute distress, room air pulse ox is 94-97%, no pulmonary issues no pulmonary complaints, his been afebrile, breathing is quite comfortable. He is on room air, he is working on this is probably, he is achieving 2000 on the today, lung sounds are clear, wound VAC is in place on the sternal incision, no drainage in the canister, patient is on Zithromax and vancomycin. Blood culture has shown no growth, sputum culture showed Benita albicans. Vital signs have been stable, no acute events. ID service is following Objective - Vital Signs Vital signs: Vital Signs Temp 97.9 F 06/12/20 07:00 Pulse 68 06/12/20 11:31 Resp 18 06/12/20 07:00 BP 121/66 06/12/20 07:00 Pulse Ox 94 L 06/12/20 07:00 Intake & Output 06/11/20 06/12/20 06/12/20 18:59 06:59 18:59 Intake Total 400 100 Output Total 1600 3400 Balance -1200 -3300 Weight 78.9 kg Intake: Intake, IV Titration 100 Amount Cefepime 2 gm In Sodium 100 Chloride 0.9% 100 ml @ 25 mls/hr IVPB Q12HR [facility] Rx #:[id number] Oral 400 Output: Urine 1600 3400 Other: Voiding Method Indwelling Catheter Indwelling Catheter Indwelling Catheter - Exam GENERAL EXAM: Alert, very pleasant, 71-year-old white male, currently on room air with pulse ox of 94% comfortable in no apparent distress. HEAD: Normocephalic/atraumatic. EYES: Normal reaction of pupils, equal size. Conjunctiva pink, sclera white. NOSE: Clear with pink turbinates. THROAT: No erythema or exudates. NECK: No masses, no JVD, no thyroid enlargement, no adenopathy. CHEST: No chest wall deformity. Symmetrical expansion. Wound VAC applied to st ernal wound, sternal wound is clean dry and intact, minimal drainage in the canister LUNGS: Equal air entry with diffuse wheezes CVS: Regular rate and rhythm, normal S1 and S2, no gallops, no murmurs, no rubs ABDOMEN: Soft, nontender. No hepatosplenomegaly, normal bowel sounds, no guarding or rigidity. EXTREMITIES: No clubbing, no edema, no cyanosis, 2+ pulses and upper and lower extremities. MUSCULOSKELETAL: Muscle strength and tone normal. SPINE: No scoliosis or deformity SKIN: No rashes CENTRAL NERVOUS SYSTEM: Alert and oriented -3. No focal deficits, tone is normal in all 4 extremities. PSYCHIATRIC: Alert and oriented -3. Appropriate affect. Intact judgment and insight. - Labs CBC & Chem 7: 06/12/20 05:45 06/12/20 05:45 Labs: Abnormal Lab Results - Last 24 Hours (Table) 06/11/20 06/12/20 06/12/20 Range/Units 20:44 05:45 05:45 RBC 2.35 L (4.30-5.90) m/uL Hgb 7.0 L (13.0-17.5) gm/dL Hct 23.3 L (39.0-53.0) % MCHC 29.9 L (31.0-37.0) g/dL RDW 18.3 H (11.5-15.5) % Plt Count 526 H (150-450) k/uL Metamyelocytes # (Man) 0.07 H (0) k/uL BUN 38.0 H (9.0-27.0) mg/dL BUN/Creatinine Ratio 38.00 H (12.00-20.00) Ratio POC Glucose (mg/dL) 148 H (75-99) mg/dL Calcium 8.4 L (8.7-10.3) mg/dL Assessment and Plan Plan: Assessment: #1. Shortness of breath, most likely related to acute exacerbation of congestive heart failure with systolic dysfunction, doubt possibility of underlying pneumonia, procalcitonin level was negative, no leukocytosis, no fever. Mycoplasma IgG was elevated suggesting remote history of infection, no active infection #2. Recent history of sternal wound infection, patient has a wound VAC in place just changed on Friday basis, patient has been on IV antibiotics in the form of daptomycin and cefepime on an outpatient basis. Current antibiotic coverage includes vancomycin and cefepime #3. Recent history of left pleural effusion, with history of unsuccessful thoracentesis, patient is maintained on oral Lasix 40 mg twice daily #4. Recent history of four-vessel coronary bypass grafting in April 2020, the patient had a complicated course, requiring discharge to inpatient rehab, and recurrent rehospitalization posterior wound infection, urinary tract infection, and left sided pleural effusion #5. History of coronary artery disease status post bypass grafting and previous stenting #6. History of hypertension #7. Hyperlipidemia #8. Prior history of myocardial infarction Plan: Patient has remained stable overnight, no acute events, and events per ID service recommendations, he remains on a combination of azithromycin vancomycin, no pulmonary complaints, no fever or chills, increase activity as tolerated, discharge antibiotic recommendations per Dr. Chris, and from pulmonary perspective patient is stable for discharge I performed a history & physical examination of the patient and discussed their management with my nurse practitioner, Amanda Hercules. I reviewed the nurse practitioner's note and agree with the documented findings and plan of care. Lung sounds are positive for diminished breath sounds. The findings and the impression was discussed with the patient. I attest to the documentation by the nurse practitioner. Time with Patient: Less than 30
--- NOTE | 2020-06-12 14:00 | P.DS ---
Providers Date of admission: 06/04/20 08:42 Expected date of discharge: 06/12/20 Attending physician: Joaquín Mcdowell MD Consults: 06/04/20 08:28 Consult Physician Routine Consulting Provider: Charles Olivo Consult Reason/Comments: Established patient Do you want consulting provider notified?: Yes 06/04/20 10:34 Consult Physician Routine Consulting Provider: Nellie Chris Consult Reason/Comments: superficial sternal wound; questionable pneumonia Do you want consulting provider notified?: Yes 06/04/20 15:21 Consult Physician Routine Consulting Provider: Jose Maria Gonzalez Consult Reason/Comments: macrocytic anemia Do you want consulting provider notified?: Yes 06/05/20 08:20 Consult Physician Routine Consulting Provider: Leon Bob Consult Reason/Comments: urine retention Do you want consulting provider notified?: Yes 06/06/20 13:56 Consult Physician Routine Consulting Provider: Renny Silva Consult Reason/Comments: CHF, pneumonia Do you want consulting provider notified?: Yes Primary care physician: Telly Guallpa [facility] Course: 79-year-old male patient of Dr. guallpa with long-standing history of CAD post CA with history of PCI and stent placement of the right coronary artery disease over 10 years ago who is known to have history of hypertension hyperlipidemia and previous history of tobacco dependency patient has been doing natural management for many years started noticing significant shortness of breath and decrease endurance when attempted to walk and ambulate was seen Dr. FRANK patel and end up going for stress test showed moderate area of infarct ischemic change patient ended up going for heart cath on 03/09/2020 finding was consistent with 80 percentile blockage of the LAD, 70% blockage in the mid LAD, 90% blockage of the circumflex and 95% blockage of the RCA, underwent 4 vessel bypass surgery on 2019 and was sent to the ICU on mechanical ventilation. Postoperatively experienced atrial fibrillation/atrial flutter , also underwent synchronized cardioversion with return to normal sinus rhythm. Patient also received 1 unit of packed RBC while at [facility] for acute blood loss anemia. He was also found to have urinary retention for which he was placed on Grimm catheter and was sent to inpatient rehab at [facility]. Patient was given iron infusion at [facility] and 2 attempts were made to remove Grimm catheter without any success. Patient is started on Flomax and proscar to help with urine retention. Patient was noted to be short of breath at inpatient rehab on 04/25 sec t o left pleural effusion, developed worsening shortness of breath requiring brief stay at ICU. Chest CT was obtained that showed an congestive heart failure with mild infiltrate with failed attempt at thoracentesis with minimal output. The echo suggested an EF of 50% Urine and blood culture was was positive for Serratia and patient was placed on cefepime by Dr. Hightower. On 05/06 was transferred back to [facility] for superficial sternal incision infection positive for staph epi. Patient completed 4 weeks of IV daptomycin and follows up with wound care under Dr. Hightower as outpatient. Patient wears wound VAC gets changed every Friday and Friday and in the wound Center every Friday. Since patient continued to have urinary retention with failed attempts to remove it patient was discharged on Grimm catheter with outpatient follow-up with urology. Patient has upcoming appointment on 06/06 for possible urodynamic studies. He was doing well until a few days ago when he was unable to walk to his car without getting shortness of breath. Patient has seen his inspector salvage Dr. Knowles and Dr. Little areas bowel outpatient within the last 1 week and was told he is doing well. Some of his medications were adjusted as outpatient. Patient endorses cough with mild phlegm production. He denies any chest pain or increased drainage from the wound. He follows every week at Wound Center and has been told his sternal incision is healing well. Patient denies any change in bowel movements or blood in the stools. He denies any nausea or vomiting. On evaluation in the ER patient was found to have a temp of 97.8 pulse 85 respiratory rate 16 blood pressure 109/58 oxygen saturation 91% on 2 L of oxygen. Patient does not wear oxygen at home. On evaluation of his last patient continues to have a low hemoglobin 7.1, MCV 103.5 platelet 455 ESR has worsened since the beginning of May to , CRP increased from 25-139. ProBNP is 2560. Albumin is 2.8 pro-calcitonin ordered. Legionella antigen ordered. Mycoplasma IgM ordered COVID 19 pending. Continue broad-spectrum antibiotic with vancomycin and cefepime. Infectious disease consult placed. Cardiothoracic surgery consulted. Lasix initiated at 40 IV twice a day continue metolazone and 5 mg by mouth daily. 06/05: Patient was evaluated today noted to be sitting in bedside chair. Patient still has complaints of mild shortness of breath, denies any chest pain. Hemoglobin did drop today to 6.1, 1 unit PRBCs ordered. Will check fecal occult blood. Urology has been consulted for his urinary retention. Repeat chest x- ray shows cardiomegaly and prominent pulmonary vascular markings scattered infiltrate and possible pneumonia although his Pro-calcitonin was 0.05, he continues on cefepime and vancomycin. Wound VAC is scheduled to be changed today, infectious disease is on consult. 06/06: patient seen resting in chair this morning. patient received 1 unit of packed RBCs yesterday hemoglobin is 7.1 today. vital signs are stable, patient remains afebrile pulse rate 69, respirations 14, blood pressure 102/63, pulse ox 97% on room air. chest x-ray showed diffuse pleural parenchymal changes are stable superimposed on background of COPD. code in testing was negative. 06/07: Patient was evaluated at bedside today. Repeat hemoglobin was 7.3 this a.m., will transfuse 1 more unit of packed RBCs today. Lasix was increased to 40 mg twice a day. Sputum culture was discussed with ID azithromycin was added and will continue to monitor per IDs recommendations. Blood cultures were negative after 72 hours. Vital signs are stable, patient is afebrile, heart rate 73, blood pressure 110/61, pulse ox 96% on room air. 06/08: Patient evaluated sitting in bedside chair, reports feeling a little bit better today. Patient was transfused with 1 unit RBCs yesterday hemoglobin 7.8 today. Chest x-ray showed scattered areas of patchy infiltrate are seen bilaterally overall is stable. We'll continue Lasix 40 mg twice a day. Vitals are stable, patient is afebrile, heart rate 70, blood pressure 104/52, pulse ox 92% on room air. Plan for discharge possibly tomorrow. 06/09: Patient seen sitting in bedside chair again this morning. Reports his breathing is better today. Chest x-ray this morning showed mild interval improvement. Hemoglobin is stable at 7.4, sodium 132, BUN 25, creatinine 0.98. Vital signs are stable, patient remains afebrile, pulse rate 80, blood pressure 101/61, pulse ox 93% on room air. Continue antibiotics per IDs recommendations. Hopefully plan for discharge tomorrow if stable. 06/10: Patient is found sitting up in chair at this time. He has just returned from an x-ray. Patient states that his breathing is improved since yesterday however he still has shortness of breath with exertion. Chest x-ray impression: Bilateral pulmonary effusions correlate for interstitial edema, consider pneumonia, edema. Patient states she is ready to go home today. Patient remains afebrile, pulse rate 82, respirations 18, blood pressure 120/67, 95% on 2 L. WBC 8.2, hemoglobin 7.2, potassium 5.2, BUN 38, creatinine 1.0 06/11: Per nursing patient was found this morning with his PICC line on the floor. Patient had PICC line in place last night sometime during the night the PICC line was removed. Patient denies removing the PICC line himself. No redness or edema noted to the arm. Peripheral IV will be inserted today is scheduled for a new PICC line for tomorrow. For possible discharge home tomorrow. Patient states that he is feeling better today. He is not complaining of any shortness of breath continues to have mild shortness of breath with some exertion. Patient remains afebrile. Wound VAC has been in place. 06/12: Dr. Chris has ordered C-reactive protein, pro-calcitonin and results are pending. We will then decide if patient requires IV antibiotics. Patient is tentatively scheduled for PICC line insertion today. Patient denies any new complaints. His lungs sounds are improving. He is a wound VAC and Grimm catheter in place. Patient has been provided [facility] and make a follow-up appointment. Pneumonia has been ruled out by pulmonary medicine. He has been afebrile, heart rate 63, blood pressure 121/66, pulse ox 94% on room air. WBC 6.8, hemoglobin 7, platelet count 526. We'll plan for discharge later today if Dr. Chris can provide antibiotic recommendations today. Dr. Chris is recommended doxycycline twice daily for 10 days prescription has been sent to his pharmacy. Patient will be discharged home today in stable condition. Assessment/Plan: 1. Acute hypoxic respiratory failure secondary to acute systolic heart failure, pneumonia ruled out by pulmonary medicine 2. Post surgical superficial sternal infection status post I and D, wound vac. 3. CAUTI bacteremia secondary to Serratia. Completed cefepime as outpatient. 4. H/o triple vessel coronary disease s/p remote inferior wall CA with RCA stent, post 4 vessel coronary artery bypass grafting with KEANE to the LAD, left radial arterial graft to the OM, SVG to the PDA, SVG to the diagonal with left radial artery harvest along with left lower extremity endoscopy Vein harvest on 04/13. 5. Postop atrial flutter/ atrial fibrillation status post clip ligation of the left atrial appendage and cardioversion. 6. Obstructive uropathy secondary to BPH with urinary retention requiring Grimm catheter placement. 7. Acute on chronic anemia with bone marrow suppression status post multiple transfusions during last visit and iron infusion at [facility]. 8. Chronic systolic heart failure with ejection fraction 40 - 45% with [id number] left ventricular dysfunction. 9. Hypertension. 10. Hyperlipidemia. 11. History of osteoarthritis post right total knee arthroplasty. 12. Hyperglycemia. Discharge plan: home with home care Impression and plan of care have been directed as dictated by the signing physician. Alisson Penny nurse practitioner acting as scribe for signing physician. Patient Condition at Discharge: Good Plan - Discharge Summary Discharge Rx Participant: Yes New Discharge Prescriptions: New Doxycycline Hyclate 100 mg PO BID #20 tab Furosemide [Lasix] 40 mg PO BID@0900,1600 #60 tab predniSONE 30 mg PO DAILY #12 tab Continue Ferrous Sulfate [Iron (65 MG Elemental)] 325 mg PO BID-W/MEALS tab Multivitamins, Thera [Multivitamin (formulary)] 1 each PO DAILY tab Pantoprazole [Protonix] 40 mg PO AC-BRKFST tablet.dr Barrientos-Docusate Sodium [Senokot-S] 2 each PO HS tab Acetaminophen Tab [Tylenol] 1,000 mg PO Q6HR PRN tab PRN Reason: Fever And/ Or Pain Ascorbic Acid [Vitamin C] 500 mg PO BID-W/MEALS tab Aspirin 325 mg PO DAILY tab Atorvastatin [Lipitor] 40 mg PO HS #30 tablet Nitroglycerin Sl Tabs [Nitrostat] 0.4 mg SUBLINGUAL Q5M PRN #25 tab PRN Reason: Chest Pain Finasteride [Proscar] 5 mg PO DAILY #30 tab Tamsulosin [Flomax] 0.4 mg PO BID #60 cap.er.24h Metoprolol Tartrate [Lopressor] 12.5 mg PO BID #60 tab Midodrine HCl [ProAmatine] 10 mg PO TID Discontinued Amiodarone [Cordarone] 200 mg PO DAILY #2 tab metOLazone [Zaroxolyn] 5 mg PO DAILY #30 tab Furosemide [Lasix] 20 mg PO DAILY Discharge Medication List Acetaminophen Tab [Tylenol] 1,000 mg PO Q6HR PRN tab 04/19/20 [Rx] Ascorbic Acid [Vitamin C] 500 mg PO BID-W/MEALS tab 04/19/20 [Rx] Ferrous Sulfate [Iron (65 MG Elemental)] 325 mg PO BID-W/MEALS tab 04/19/20 [Rx] Multivitamins, Thera [Multivitamin (formulary)] 1 each PO DAILY tab 04/19/20 [Rx] Pantoprazole [Protonix] 40 mg PO AC-BRKFST tablet. 04/19/20 [Rx] Sennosides-Docusate Sodium [Senokot-S] 2 each PO HS tab 04/19/20 [Rx] Aspirin 325 mg PO DAILY tab 05/12/20 [Rx] Atorvastatin [Lipitor] 40 mg PO HS #30 tablet 05/12/20 [Rx] Finasteride [Proscar] 5 mg PO DAILY #30 tab 05/12/20 [Rx] Metoprolol Tartrate [Lopressor] 12.5 mg PO BID #60 tab 05/12/20 [Rx] Nitroglycerin Sl Tabs [Nitrostat] 0.4 mg SUBLINGUAL Q5M PRN #25 tab 05/12/20 [Rx] Tamsulosin [Flomax] 0.4 mg PO BID #60 cap.er.24h 05/12/20 [Rx] Midodrine HCl [ProAmatine] 10 mg PO TID 06/04/20 [History] Doxycycline Hyclate 100 mg PO BID #20 tab 06/12/20 [Rx] Furosemide [Lasix] 40 mg PO BID@0900,1600 #60 tab 06/12/20 [Rx] predniSONE 30 mg PO DAILY #12 tab 06/12/20 [Rx] Follow up Appointment(s)/Referral(s): [facility], [NON-STAFF] - As Needed Charles Olivo MD [STAFF PHYSICIAN] - 07/07/20 10:15 am () [facility],Infusion [NON-STAFF] - As Needed Wound Healing,Center [NON-STAFF] - 06/14/20 10:45 am () Telly Guallpa MD [Primary Care Provider] - 1 Week Patient Instructions/Handouts: Peripherally Inserted Central Catheters and Midline Catheters (DC) Activity/Diet/Wound Care/Special Instructions: No lifting, pushing, or pulling more than 10 pounds for 12 weeks. The physician will advise of any restriction changes. The patient is expected to continue the prescribed walking program. Continue pain control per as needed orders. Continue with incentive spirometry until otherwise directed by the physician. May shower daily. Wound VAC to be changed Mondays and Fridays by home care, changed Wednesdays in the wound care center by Dr. Pittman Discharge Disposition: HOME WITH HOME HEALTH SERVICES
[2020-06-12 14:03] LABS: Albumin 2.52 g/dL (3.80-4.90); Gamma Globulin 0.92 g/dL (0.70-1.50)
--- NOTE | 2020-06-12 16:45 | PN ---
PROGRESS NOTE DATE OF SERVICE: 06/12/2020 REASON FOR FOLLOWUP: 1. Sternal wound infection. 2. Possible pneumonia. INTERVAL HISTORY: The patient is currently afebrile. The patient is feeling better, breathing more comfortably. Denies having any chest pain or cough. No nausea, no vomiting. No abdominal pain or diarrhea. PHYSICAL EXAMINATION: Blood pressure 121/66, pulse of 63, temperature 97.9. He is 94% on room air. General description is an elderly male lying in bed in no distress. RESPIRATORY SYSTEM: Unlabored breathing with decreased intensity of breath sounds. No wheeze. HEART: S1, S2. Regular rate and rhythm. ABDOMEN: Soft. No tenderness. LABS: Hemoglobin is 7, white count 6.8. BUN of 38, creatinine 1.0. Procalcitonin 0.02. CRP is 0.8. DIAGNOSTIC IMPRESSION AND PLAN: 1. Patient with a sternal wound infection that has been adequately treated. Vancomycin will be discontinued. Discharge PICC line should be discontinued. Will give a short course of oral doxycycline 100 mg twice a day for 10 days. 2. Patient with shortness of breath and pulmonary infiltrate, possibly multifactorial, possibly fluid-related lung infection not entirely excluded. May get a short course of oral Zithromax on discharge. MMODL / IJN: [id number] /
== END 2020-06-12 15:19 | disposition home health service (06) | DRG 291 ==
LOC: EC 06:04 → 4SSUR 08:42
PROVIDERS: ADMIT Internal Medicine; ATTEND Internal Medicine
PROC: 30233N1 Transfusion of Nonautologous Red Blood Cells into Peripheral Vein, Percutaneous Approach (ICD-10-PCS; principal; 2020-06-05)
DX: I11.0 Hypertensive heart disease with heart failure (principal); J96.01 Acute respiratory failure with hypoxia; J18.9 Pneumonia, unspecified organism; T81.31XA Disruption of external operation (surgical) wound, not elsewhere classified, initial encounter; T81.41XA Infection following a procedure, superficial incisional surgical site, initial encounter; N13.8 Other obstructive and reflux uropathy; J44.0 Chronic obstructive pulmonary disease with (acute) lower respiratory infection; I95.9 Hypotension, unspecified; J84.10 Pulmonary fibrosis, unspecified; Z95.1 Presence of aortocoronary bypass graft; I50.23 Acute on chronic systolic (congestive) heart failure; I48.0 Paroxysmal atrial fibrillation; I77.819 Aortic ectasia, unspecified site; I05.9 Rheumatic mitral valve disease, unspecified; B95.8 Unspecified staphylococcus as the cause of diseases classified elsewhere; I25.10 Atherosclerotic heart disease of native coronary artery without angina pectoris; R73.9 Hyperglycemia, unspecified; E78.5 Hyperlipidemia, unspecified; N40.1 Benign prostatic hyperplasia with lower urinary tract symptoms; R33.8 Other retention of urine; Z20.828 Contact with and (suspected) exposure to other viral communicable diseases; D53.9 Nutritional anemia, unspecified; R26.2 Difficulty in walking, not elsewhere classified; I25.2 Old myocardial infarction; M19.90 Unspecified osteoarthritis, unspecified site; Z79.82 Long term (current) use of aspirin; Z79.899 Other long term (current) drug therapy; Z87.891 Personal history of nicotine dependence; Z86.19 Personal history of other infectious and parasitic diseases; Z87.01 Personal history of pneumonia (recurrent); Z95.5 Presence of coronary angioplasty implant and graft; Z90.89 Acquired absence of other organs; Z87.19 Personal history of other diseases of the digestive system; Z96.651 Presence of right artificial knee joint; Z87.2 Personal history of diseases of the skin and subcutaneous tissue; Z86.79 Personal history of other diseases of the circulatory system; Z98.42 Cataract extraction status, left eye; Z98.41 Cataract extraction status, right eye; Z98.890 Other specified postprocedural states; Z88.5 Allergy status to narcotic agent; Y83.2 Surgical operation with anastomosis, bypass or graft as the cause of abnormal reaction of the patient, or of later complication, without mention of misadventure at the time of the procedure; Z80.9 Family history of malignant neoplasm, unspecified; Z82.49 Family history of ischemic heart disease and other diseases of the circulatory system
CPT/HCPCS: 36415; 71046; 71250; 80048; 80053; 80202; 82565; 82607; 82728; 82747; 83010; 83540; 83550; 83605; 83735; 83880; 83883; 83921; 84145; 84165; 84484; 85025; 85045; 85610; 85652; 85730; 86060; 86140; 86334; 86738; 86850; 86900; 86901; 86920; 87040; 87070; 87205; 87449; 93005; 93308; 94640; 94760; 96365; 96366; 96367; 99285

== ENCOUNTER → 2022-01-30 | Outpatient (CLI) | payer MEDICARE ==
--- NOTE | 2022-01-30 14:12 | CA ---
Transthoracic Echo Report Name: Anatoly Pereyra Age: 81 Gender: M : 1940 Exam Date: 01/30/2022 12:05 Exam Location: [facility] Ht (in): 67 Wt (lb): 180 Ordering Physician: Telly Mccurdy MD Attending/Referring Phys: Zee Knowles MD ([id number]) Staff Toxicologist Fabiana Victoria RDCS Procedure CPT: Indications: I50.9 HEART FAILURE, UNSPECIFIED Cardiac Hx: CABG XMI, CABGx4 Technical Quality: Good Contrast 1: N/A Total Dose (mL): Contrast 2: Total Dose (mL): MEASUREMENTS (Male / Female) Normal Values 2D ECHO LV Diastolic Diameter PLAX 4.5 cm 4.2 - 5.9 / 3.9 - 5.3 cm LV Systolic Diameter PLAX 3.7 cm IVS Diastolic Thickness 1.3 cm 0.6 - 1.0 / 0.6 - 0.9 cm LVPW Diastolic Thickness 1.6 cm 0.6 - 1.0 / 0.6 - 0.9 cm LV Relative Wall Thickness 0.7 RV Internal Dim ED PLAX 3.5 cm LA Systolic Diameter LX 3.6 cm 3.0 - 4.0 / 2.7 - 3.8 cm LA Volume 63.1 cm??? 18 - 58 / 22 - 52 cm??? M-MODE Aortic Root Diameter MM 3.5 cm LA Systolic Diameter MM 3.4 cm LA Ao Ratio MM 1.0 MV E Point Septal Separation 1.5 cm AV Cusp Separation MM 1.3 cm DOPPLER AV Peak Velocity 171.5 cm/s AV Peak Gradient 11.8 mmHg LVOT Peak Velocity 120.1 cm/s LVOT Peak Gradient 5.8 mmHg MV Area PHT 4.3 cm??? Mitral E Point Velocity 57.7 cm/s Mitral A Point Velocity 71.7 cm/s Mitral E to A Ratio 0.8 MV Deceleration Time 177.3 ms MV E' Velocity 4.5 cm/s Mitral E to MV E' Ratio 12.7 TR Peak Velocity 180.2 cm/s TR Peak Gradient 13.0 mmHg Right Ventricular Systolic Press 18.0 mmHg FINDINGS Left Ventricle Left ventricular ejection fraction is estimated at 45-50%. Mildly increased left ventricular wall thickness. Inferior hypokinesis. Right Ventricle Normal right ventricular size and function. Right ventricular systolic pressure within normal limits. Right Atrium Normal right atrial size. Left Atrium Mildly increased left atrial volume. Mild left atrial dilatation. Mitral Valve Structurally normal mitral valve. Mild mitral regurgitation. Aortic Valve Trileaflet aortic valve. Aortic valve sclerosis. Tricuspid Valve Structurally normal tricuspid valve. Mild tricuspid regurgitation. Pulmonic Valve Structurally normal pulmonic valve. Pericardium Normal pericardium. Aorta Normal size aortic root and proximal ascending aorta. CONCLUSIONS Mildly impaired LV function with EF between 45-50% Mild concentric left ventricular hypertrophy Previewed by: Dr. Phoenix Rodriguez MD (Electronically Signed) Final Date: 30 Jan 2022 14:11
== END | disposition home or self-care (01) ==
LOC: RADECHMAIN 11:56
PROVIDERS: ATTEND Internal Medicine Geriatric Medicine
DX: I08.3 Combined rheumatic disorders of mitral, aortic and tricuspid valves (principal)
CPT/HCPCS: 93306

== ENCOUNTER 2022-10-02 19:23 | Inpatient (IN) | payer MEDICARE ==
[2022-10-02] MEDS ORDERED: SODIUM CHLORIDE 0.9% 1,000 ML IV STA (19:47)
[2022-10-02 20:08] LABS: INR 0.9 (<1.2); Partial Thromboplastin Time 23.4 sec (22.0-30.0); Prothrombin Time 9.6 sec (9.0-12.0)
--- NOTE | 2022-10-02 20:09 | XR ---
EXAMINATION TYPE: XR chest 2V DATE OF EXAM: 10/02/2022 7:59 PM COMPARISON: Chest radiographs from 06/10/2020 TECHNIQUE: XR chest 2V Frontal and lateral views of the chest. CLINICAL INDICATION:Male, 81 years old with history of altered mental status; FINDINGS: Lungs/Pleura: There is no evidence of pleural effusion, focal consolidation, or pneumothorax. Decrea se in pleural effusion seen on prior. Pulmonary vascularity: Unremarkable. Heart/mediastinum: Cardiomediastinal silhouette is enlarged and stable. Atherosclerotic calcificatio ns are seen in the aorta. Left atrial appendage occlusion device is present. Musculoskeletal: No acute osseous pathology. Midline sternotomy wires are noted. IMPRESSION: 1. No acute cardiopulmonary disease/process. 2. Similar cardiomegaly.
[2022-10-02 20:11] LABS: Albumin 3.7 g/dL (3.5-5.0); Calcium 8.5 mg/dL (8.4-10.2); Magnesium 2.5 mg/dL (1.6-2.3); Potassium 4.7 mmol/L (3.5-5.1); Total Bilirubin 0.8 mg/dL (0.2-1.3); Total Protein 6.1 g/dL (6.3-8.2)
[2022-10-02 20:12] LABS: Anisocytosis Moderate; Basophils # (A) 0.1 k/uL (0-0.2); Basophils % (A) 1 %; Eosinophils # (A) 1.3 k/uL (0-0.7); Eosinophils % (A) 9 %; HGB 10.4 gm/dL (13.0-17.5); Hypochromasia Slight; Lymphocytes # (A) 2.6 k/uL (1.0-4.8); Lymphocytes % (A) 19 %; MCH 31.7 pg (25.0-35.0); MCHC 31.5 g/dL (31.0-37.0); MCV 100.7 fL (80.0-100.0); Macrocytosis Marked; Mean Platelet Volume 8.8; Monocytes # (A) 0.6 k/uL (0-1.0); Monocytes % (A) 5 %; Neutrophils # (A) 8.7 k/uL (1.3-7.7); Neutrophils % (A) 64 %; Platelet Count 905 k/uL (150-450); Poikilocytosis Slight; RBC 3.28 m/uL (4.30-5.90); RDW 22.6 % (11.5-15.5); WBC 13.6 k/uL (3.8-10.6)
--- NOTE | 2022-10-02 20:12 | ED ---
Extremity Problem HPI - General Chief complaint: Extremity Problem,Nontraumatic Stated complaint: Vision issues Time Seen by Provider: 10/02/22 19:41 Source: patient, EMS, RN notes reviewed Mode of arrival: EMS Limitations: no limitations - History of Present Illness Initial comments: 81-year-old male with no prior history of strokes history of quadruple bypass 2 years ago who states he woke from a nap around 6 or 6:30 this evening with uncontrollable shaking of both upper extremities most of the hands. He also states that during this time he had some visual disturbances is/molar going off in both eyes. He states the shaking has gotten better weakness is gotten better he states he felt he states the visual disturbances of got better though her still somewhat there. He has no prior history of any trauma fevers chills sweats no history of seizure disorder. No other current complaints of modifying factors MD Complaint: other - Related Data Home Medications Medication Instructions Recorded Confirmed Midodrine HCl [ProAmatine] 10 mg PO TID 06/04/20 06/04/20 Previous Rx's Medication Instructions Recorded Acetaminophen Tab [Tylenol] 1,000 mg PO Q6HR PRN tab 04/19/20 Ascorbic Acid [Vitamin C] 500 mg PO BID-W/MEALS tab 04/19/20 Ferrous Sulfate [Iron (65 MG 325 mg PO BID-W/MEALS tab 04/19/20 Elemental)] Multivitamins, Thera [Multivitamin 1 each PO DAILY tab 04/19/20 (formulary)] Pantoprazole [Protonix] 40 mg PO AC-BRKFST tablet.dr 04/19/20 Sennosides-Docusate Sodium 2 each PO HS tab 04/19/20 [Senokot-S] Aspirin 325 mg PO DAILY tab 05/12/20 Atorvastatin [Lipitor] 40 mg PO HS #30 tablet 05/12/20 Finasteride [Proscar] 5 mg PO DAILY #30 tab 05/12/20 Metoprolol Tartrate [Lopressor] 12.5 mg PO BID #60 tab 05/12/20 Nitroglycerin Sl Tabs [Nitrostat] 0.4 mg SUBLINGUAL Q5M PRN #25 tab 05/12/20 Tamsulosin [Flomax] 0.4 mg PO BID #60 cap.er.24h 05/12/20 Doxycycline Hyclate 100 mg PO BID #20 tab 06/12/20 Furosemide [Lasix] 40 mg PO BID@0900,1600 #60 tab 06/12/20 predniSONE 30 mg PO DAILY #12 tab 06/12/20 Allergies Allergy/AdvReac Type Severity Reaction Status Date / Time codeine Allergy Headache/brain Verified 10/02/22 21:45 swelling Review of Systems ROS Statement: Those systems with pertinent positive or pertinent negative responses have been documented in the HPI. ROS Other: All systems not noted in ROS Statement are negative. Past Medical History Past Medical History: Atrial Fibrillation, Coronary Artery Disease (CAD), Heart Failure, Hyperlipidemia, Hypertension, Myocardial Infarction (MT), Osteoarthritis (OA) Additional Past Medical History / Comment(s): Sepsis secondary to Serratia UTI and the patient was bacteremic Last Myocardial Infarction Date:: 2001 History of Any Multi-Drug Resistant Organisms: None Reported Past Surgical History: Coronary Bypass/CABG, Heart Catheterization With Stent, Hernia Repair, Joint Replacement, Tonsillectomy Additional Past Surgical History / Comment(s): Precancerous skin lesion removed, right knee replacement, cyst removed, bilateral cataracts removed. Bare-metal stent placed to the RCA in February 2002; 4 vessel CABG 04/13/2020 Past Anesthesia/Blood Transfusion Reactions: No Reported Reaction Date of Last Stent Placement:: 2001 Past Psychological History: No Psychological Hx Reported Smoking Status: Never smoker Past Alcohol Use History: None Reported Past Drug Use History: None Reported - Past Family History Father Family Medical History: Cancer Mother Family Medical History: Cancer, Coronary Artery Disease (CAD) General Exam - General Exam Comments Initial Comments: This is a well-developed well-nourished awake alert oriented 4 male Limitations: no limitations General appearance: alert, in no apparent distress Head exam: Present: atraumatic, normocephalic, normal inspection Eye exam: Present: normal appearance, PERRL, EOMI. Absent: scleral icterus, conjunctival injection, periorbital swelling ENT exam: Present: normal exam, mucous membranes moist Neck exam: Present: normal inspection, full ROM, other (No stridor JVD or bruits). Absent: tenderness, meningismus, lymphadenopathy Respiratory exam: Present: normal lung sounds bilaterally. Absent: respiratory distress, wheezes, rales, rhonchi, stridor Cardiovascular Exam: Present: regular rate, normal rhythm, normal heart sounds. Absent: systolic murmur, diastolic murmur, rubs, gallop, clicks GI/Abdominal exam: Present: soft, normal bowel sounds. Absent: distended, tenderness, guarding, rebound, rigid Extremities exam: Present: normal inspection, full ROM, normal capillary refill. Absent: tenderness, pedal edema, joint swelling, calf tenderness Back exam: Present: normal inspection Neurological exam: Present: alert, oriented X3, CN II-XII intact Psychiatric exam: Present: normal affect, normal mood Skin exam: Present: warm, dry, intact, normal color. Absent: rash Course Vital Signs 10/02/22 19:25 Temperature 97.8 F Pulse Rate 62 Respiratory 18 Rate Blood Pressure 141/87 O2 Sat by Pulse 97 Oximetry Medical Decision Making - Medical Decision Making I did reevaluate patient several occasions he episode with the shaking of the hands has resolved he still have some visual and amount be states this is i mproving. Through the findings patient will be admitted to the hospital with neurological consultation he also does request that his global vp creative + content marketing . I did discuss case with Kimberlyn from [facility] covering for Dr. Fleming. Patient will be admitted. Was pt. sent in by a medical professional or institution (, PA, SUGARCANE RESEARCH TECHNICIAN, urgent care, hospital, or [place] health [place] facility...) When possible be specific @ -No Did you speak to anyone other than the patient for history (EMS, parent, family, police, friend...)? What history was obtained from this source @ -Yes EMS Did you review nursing and triage notes (agree or disagree)? Why? @ -I reviewed and agree with nursing and triage notes Were old charts reviewed (outside hosp., previous admission, EMS record, old EKG, old radiological studies, urgent care reports/EKG's, [place] health care facility records)? Report findings @ -No old charts were reviewed Differential Diagnosis (chest pain, altered mental status, abdominal pain women, abdominal pain men, vaginal bleeding, weakness, fever, dyspnea, syncope, headache, dizziness, GI bleed, back pain, seizure, CVA, palpatations, mental health)? @ -CVA/TIA/tremors EKG interpreted by me (3pts min.). @ -As above X-rays interpreted by me (1pt min.). @ -Yes CT interpreted by me (1pt min.). @ -Yes as above U/S interpreted by me (1pt. min.). @ -None done What testing was considered but not performed or refused? (CT, X-rays, U/S, labs)? Why? @ -None What meds were considered but not given or refused? Why? @ -None Did you discuss the management of the patient with other professionals (martha may i.eJenise Sweeney, PA, SUGARCANE RESEARCH TECHNICIAN, lab, RT, psych nurse, manager social, pharmacy sales representative, teacher, immigration services officer, welfare case worker)? Give summary @ -No Was smoking cessation discussed for >3mins.? @ -No Was critical care preformed (if so, how long)? @ -No Were there social determinants of health that impacted care today? How? (Homelessness, low income, unemployed, alcoholism, drug addiction, transportation, low edu. Level, literacy, decrease access to med. care, senior care, rehab)? @ -No Was there de-escalation of care discussed even if they declined (Discuss DNR or withdrawal of care, Hospice)? DNR status @ -No What co-morbidities impacted this encounter? (DM, HTN, Smoking, COPD, CAD, Cancer, CVA, ARF, Chemo, Hep., AIDS, mental health diagnosis, sleep apnea, morbid obesity)? @ -None Was patient admitted / discharged? Hospital course, mention meds given and route, prescriptions, significant lab abnormalities, going to OR and other pertinent info. @ -hospital course patient was admitted Undiagnosed new problem with uncertain prognosis? @ -No Drug Therapy requiring intensive monitoring for toxicity (Heparin, Nitro, Insulin, Cardizem)? @ -No Were any procedures done? @ -No Diagnosis/symptom? @ - TIA] Acute, or Chronic, or Acute on Chronic? @ -[Acute Uncomplicated (without systemic symptoms) or Complicated (systemic symptoms)? @ -default Side effects of treatment? @ -No Exacerbation, Progression, or Severe Exacerbation? @ -No Poses a threat to life or bodily function? How? (Chest pain, USA, MT, pneumonia, PE, COPD, DKA, ARF, appy, cholecystitis, CVA, Diverticulitis, Homicidal, Suicidal, threat to staff... and all critical care pts) @ -No - Lab Data Result diagrams: 10/02/22 19:50 01/25/23 19:50 Lab Results 10/02/22 10/02/22 10/02/22 Range/Units 19:50 19:50 19:50 WBC 13.6 H (3.8-10.6) k/uL RBC 3.28 L (4.30-5.90) m/uL Hgb 10.4 L (13.0-17.5) gm/dL Hct 33.0 L (39.0-53.0) % MCV 100.7 H (80.0-100.0) fL MCH 31.7 (25.0-35.0) pg MCHC 31.5 (31.0-37.0) g/dL RDW 22.6 H (11.5-15.5) % Plt Count 905 H (150-450) k/uL MPV 8.8 Neutrophils % 64 % Lymphocytes % 19 % Monocytes % 5 % Eosinophils % 9 % Basophils % 1 % Neutrophils # 8.7 H (1.3-7.7) k/uL Lymphocytes # 2.6 (1.0-4.8) k/uL Monocytes # 0.6 (0-1.0) k/uL Eosinophils # 1.3 H (0-0.7) k/uL Basophils # 0.1 (0-0.2) k/uL Hypochromasia Slight Poikilocytosis Slight Anisocytosis Moderate Macrocytosis Marked A PT 9.6 (9.0-12.0) sec INR 0.9 (<1.2) APTT 23.4 (22.0-30.0) sec Sodium 139 (137-145) mmol/L Potassium 4.7 (3.5-5.1) mmol/L Chloride 106 (98-107) mmol/L Carbon Dioxide 29 (22-30) mmol/L Anion Gap 4 mmol/L BUN 23 H (9-20) mg/dL Creatinine 0.93 (0.66-1.25) mg/dL Est GFR (CKD-EPI)AfAm 90 (>60 ml/min/1.73 sqM) Est GFR (CKD-EPI)NonAf 78 (>60 ml/min/1.73 sqM) Glucose 91 (74-99) mg/dL Calcium 8.5 (8.4-10.2) mg/dL Magnesium 2.5 H (1.6-2.3) mg/dL Total Bilirubin 0.8 (0.2-1.3) mg/dL AST 50 (17-59) U/L ALT 50 H (4-49) U/L Alkaline Phosphatase 58 (38-126) U/L Troponin I (0.000-0.034) ng/mL Total Protein 6.1 L (6.3-8.2) g/dL Albumin 3.7 (3.5-5.0) g/dL 10/02/22 Range/Units 19:50 WBC (3.8-10.6) k/uL RBC (4.30-5.90) m/uL Hgb (13.0-17.5) gm/dL Hct (39.0-53.0) % MCV (80.0-100.0) fL MCH (25.0-35.0) pg MCHC (31.0-37.0) g/dL RDW (11.5-15.5) % Plt Count (150-450) k/uL MPV Neutrophils % % Lymphocytes % % Monocytes % % Eosinophils % % Basophils % % Neutrophils # (1.3-7.7) k/uL Lymphocytes # (1.0-4.8) k/uL Monocytes # (0-1.0) k/uL Eosinophils # (0-0.7) k/uL Basophils # (0-0.2) k/uL Hypochromasia Poikilocytosis Anisocytosis Macrocytosis PT (9.0-12.0) sec INR (<1.2) APTT (22.0-30.0) sec Sodium (137-145) mmol/L Potassium (3.5-5.1) mmol/L Chloride (98-107) mmol/L Carbon Dioxide (22-30) mmol/L Anion Gap mmol/L BUN (9-20) mg/dL Creatinine (0.66-1.25) mg/dL Est GFR (CKD-EPI)AfAm (>60 ml/min/1.73 sqM) Est GFR (CKD-EPI)NonAf (>60 ml/min/1.73 sqM) Glucose (74-99) mg/dL Calcium (8.4-10.2) mg/dL Magnesium (1.6-2.3) mg/dL Total Bilirubin (0.2-1.3) mg/dL AST (17-59) U/L ALT (4-49) U/L Alkaline Phosphatase (38-126) U/L Troponin I <0.012 (0.000-0.034) ng/mL Total Protein (6.3-8.2) g/dL Albumin (3.5-5.0) g/dL - EKG Data -: EKG Interpreted by Me EKG Comments: EKG interpreted by me shows normal sinus rhythm a 68 SC interval 172 QRS duration 113 QT since QTC 14/434 borderline left exodeviation moderate interventricular conduction delay nonspecific T-wave configuration some artifact present - Radiology Data Interpreted by me: Imaging was interpreted by me no evidence on imaging of acute processes CT negative for evidence of vascular obstruction. No masses noted. Disposition Clinical Impression: TIA (transient ischemic attack), Tremors of nervous system Disposition: ADMITTED IP TO THIS [facility] Condition: Stable Referrals: Telly Mccurdy MD [Primary Care Provider] - 1-2 days Decision Date: 10/02/22 Decision Time: 22:00
--- NOTE | 2022-10-02 21:01 | CT ---
EXAMINATION TYPE: CT brain wo con for TPA CT DLP: 1600.4 mGycm, Automated exposure control for dose reduction was used. DATE OF EXAM: 10/02/2022 8:51 PM COMPARISON: None. CLINICAL INDICATION:Male, 81 years old with history of Neuro deficit, acute, stroke suspected, Neuro deficit, acute, stroke suspected TECHNIQUE: Brain: Axial CT images of the brain were obtained with coronal and sagittal reformats created and rev iewed. Contrast used: None. Oral contrast used: None. FINDINGS: Brain: Extra-axial spaces: No abnormal extra-axial fluid collections. Ventricular system: Within normal limits Cerebral parenchyma: No acute intraparenchymal hemorrhage or mass effect. The garcia-white junction is well differentiated. Left posterior parietal nonspecific white matter changes. Cerebellum: Unremarkable. Mass effect: No evidence of midline shift. Intracranial vasculature: Atherosclerotic calcifications of the intracranial vessels. Soft tissues: Normal. Calvarium/osseous structures: No depressed skull fracture. Paranasal sinuses and mastoid air cells: Mild scattered paranasal sinus disease. Visualized orbits: Bilaterally aphakia IMPRESSION: 1. No acute intracranial process. 2. Nonspecific white matter changes, likely secondary to chronic small vessel ischemic disease.
--- NOTE | 2022-10-02 21:05 | CT ---
EXAMINATION TYPE: CT angio head neck CT DLP: 1600.4 mGycm, Automated exposure control for dose reduction was used. DATE OF EXAM: 10/02/2022 8:53 PM COMPARISON: CT brain same day CLINICAL INDICATION:Male, 81 years old with history of Neuro deficit, acute, stroke suspected; Neuro deficit, acute, stroke suspected TECHNIQUE: Axially acquired helical CT angiogram of the head and neck was obtained with contrast. Axi al images are supplemented with 3D reconstructions [facility] NASCET criteria used. Contrast used:65cc mL of Isovue 370 with IV Contrast, Oral contrast used: None. FINDINGS: CTA HEAD: No evidence of acute intracranial hemorrhage, mass effect, or midline shift. The ventricles, sulci, a nd cisterns are unremarkable. The visualized portions of the internal carotid arteries, middle cerebral arteries, anterior cerebral arteries, and posterior cerebral arteries are patent. The basilar and vertebral arteries are patent. CTA NECK: Right Carotid System: The common carotid artery and external carotid artery are patent. The carotid bifurcation demonstrate s calcified plaque without hemodynamically significant stenosis. The remaining portions of the internal revenue agent al carotid artery demonstrate normal size without significant narrowing. Left Carotid System: The common carotid artery and external carotid artery are patent. The carotid bifurcation demonstrate s calcified plaque without hemodynamically significant stenosis. The remaining portions of the internal revenue agent al carotid artery demonstrate normal size without significant narrowing. Vertebral arteries are patent without evidence hemodynamically significant stenosis. There is a three-vessel aortic arch. The origins of the great vessels are patent. No evidence of hemo dynamically significant stenosis. Upper thorax: The lungs are clear. IMPRESSION: 1. No evidence of dissection of the cervical internal carotid arteries or vertebral arteries or any e vidence of significant stenosis at the carotid bifurcations. 2. No evidence of intracranial high-grade stenosis or intracranial aneurysm.
[2022-10-02] MEDS ORDERED: ACETAMINOPHEN TAB 500 MG TAB PO PRN (22:21)
[2022-10-02] MEDS ORDERED: NITROGLYCERIN SL TABS 0.4 MG TAB SUBLINGUAL PRN (22:21)
[2022-10-02] MEDS: SODIUM CHLORIDE 0.9% 1,000 ML IV SCH (22:35)
[2022-10-03] MEDS: oxyCODONE-APAP 5-325MG 1 EACH TAB PO PRN ×2 (00:19→20:48)
[2022-10-03 09:58] LABS: Chol/HDL Ratio 2.52 Ratio; LDL Cholesterol,Calculated 58.5 mg/dL (0.0-131.0); VLDL Calculation 16.18 mg/dL (5.00-40.00)
[2022-10-03] MEDS: FUROSEMIDE 20 MG TAB PO SCH (10:04)
[2022-10-03] MEDS: METOPROLOL TARTRATE 25 MG TAB PO SCH (10:04)
[2022-10-03] MEDS: DOCUSATE 100 MG CAP PO SCH ×2 (10:04→20:48)
[2022-10-03] MEDS: HEPARIN SODIUM,PORCINE/PF 5,000 UNIT/0.5 ML SYRINGE SQ SCH ×3 (10:04→20:47)
[2022-10-03] MEDS: FAMOTIDINE 20 MG TAB PO SCH ×2 (10:04→20:48)
[2022-10-03] MEDS: ATORVASTATIN 40 MG TAB PO SCH (10:04)
[2022-10-03] MEDS: SODIUM CHLORIDE 0.9% 1,000 ML IV SCH ×2 (10:05→18:07)
--- NOTE | 2022-10-03 10:24 | CONS ---
CONSULTATION CHIEF COMPLAINT: Involuntary movement and weakness of the upper extremities. HISTORY OF PRESENT ILLNESS: This is an 81-year-old gentleman with history of coronary artery disease, status post angioplasty of the right coronary artery in 2001 and bypass surgery with KEANE to LAD, radial artery graft to active OM, SVG to diag and RCA, who presented to hospital having had sudden onset inability to use his upper extremities, weakness, and tremulousness. The patient had a recent left knee replacement surgery and is currently on multiple pain medications. His symptoms have resolved spontaneously and he is admitted with a diagnosis of TIA and we have been consulted because of his cardiac history. At the time of my evaluation this morning, he appears comfortable at rest and is free of symptoms. He denies chest pain, difficulty in breathing, palpitations, dizziness, or syncope. He does not have any focal neurological deficits. MEDICATIONS AT HOME: 1. Oxycodone. 2. Crestor. 3. Lasix. 4. Pepcid. 5. Aricept. 6. Lopressor. 7. Sublingual nitroglycerin. ALLERGIES: To Codeine. FAMILY HISTORY: Negative for premature coronary artery disease. SOCIAL HISTORY: Negative for current smoking, EtOH abuse or drug abuse. EKG shows sinus rhythm with left axis deviation, intraventricular conduction delay, nonspecific ST-T wave changes. PAST MEDICAL HISTORY: Significant for coronary artery disease status post CABG, hypertension, dyslipidemia, and recent history of left knee replacement surgery. REVIEW OF SYSTEMS: A review of systems has been performed, pertinence are as documented. PHYSICAL EXAMINATION: GENERAL: The patient is comfortable at rest. VITAL SIGNS: Stable. NECK: There is no jugular venous distention. Carotid upstroke is normal. There is no bruit. CHEST: Reveals good air entry bilaterally. HEART: Reveals first and second heart sounds. No gallop, no murmur. ABDOMEN: Soft. EXTREMITIES: Reveal mild swelling of the right leg. RUBBER GOODS ASSEMBLER: Did not reveal focal neurological deficits. LABS: Show a hemoglobin of 10.4, platelet count is 900, potassium is 4.7, BUN is 23, creatinine is 0.9. Troponin is normal. Albumin is 3.7. ASSESSMENT AND PLAN: 1. Involuntary movements and transient weakness of both hands, probably related to the recent surgery and pain medications that the patient is on. TIA is an unlikely possibility, but a neurologist has been consulted and we will await their input. 2. Coronary artery disease, status post CABG, the patient is stable. Reviewed his medications. He is going to continue with what he is on. An EKG does not reveal acute ischemic changes. Troponin is negative. I will obtain a 2D echo on him to document his LV function. The patient had a CT angiogram that did not reveal any evidence of high-grade stenosis, dissection of the carotid artery. Thank you for allowing us to participate in the care of this pleasant gentleman. MALORIE / CHACORTAN: [id number] /
--- NOTE | 2022-10-03 11:26 | P.HPIM ---
History of Present Illness This is a pleasant 9 years old male with past medical history of Atrial Fibrillation, Coronary Artery Disease (status post CABG and stent placement, Heart Failure, Hyperlipidemia, Hypertension, Osteoarthritis Upper extremity shaking with weakness. Patient states that she has jerking movement in both upper extremities, there were symmetrical and it looks like they stopped now when I see the patient, most likely it looks like myoclonic jerks, suspicious for extensive pain medication he was taking narcotics every 4 hours because of his recent left knee surgery on 09/24. Patient was counseled and he is agreeable to stop taking his pain medication although he was counseled to taper them. He is agreeable to stop or taper them gradually. He denies any other symptoms, no blurred vision or slurred speech, no headache or dizziness, no weakness or numbness. Also patient with no chest pain or dyspnea or coughing however he requested packing machine tender to evaluate him. Dr. Stack saw the patient and he recommended echocardiogram which is pending I discussed the case with the neurologist service they have already cleared the patient for discharge Vitals are stable He has mild leukocytosis of 13.6. Hemoglobin 10.4. Platelet count elevated 905 INR 0.9 BMP is unremarkable, magnesium 2.5, liver enzymes not significantly elevated bilirubin normal 0.8. Chest x-ray: No acute process. CT of the brain no acute intracranial process CTA of the head and neck: No acute process, no dissection or high-grade stenosis or aneurysm In the emergency room patient was given normal saline 100 mL per hour. Review of Systems Review of systems CONSTITUTIONAL: No fever, no malaise, no fatigue. HEENT: No recent visual problems or hearing problems. Denied any sore throat. CARDIOVASCULAR: No orthopnea, PND, no palpitations, no syncope. PULMONARY: No shortness of breath, no cough, no hemoptysis. GASTROINTESTINAL: No diarrhea, no nausea, no vomiting, no abdominal pain. Normoactive bowel sounds. NEUROLOGICAL: No headaches, no weakness, no numbness. HEMATOLOGICAL: Denies any bleeding or petechiae. GENITOURINARY: Denies any burning micturition, frequency, or urgency. MUSCULOSKELETAL/RHEUMATOLOGICAL: Denies any joint pain, swelling, or any muscle pain. ENDOCRINE: Denies any polyuria or polydipsia. Past Medical History Past Medical History: Atrial Fibrillation, Coronary Artery Disease (CAD), Heart Failure, Hyperlipidemia, Hypertension, Myocardial Infarction ([place]), Osteoarthritis (OA) Additional Past Medical History / Comment(s): Sepsis secondary to Serratia UTI and the patient was bacteremic Last Myocardial Infarction Date:: 2001 History of Any Multi-Drug Resistant Organisms: None Reported Past Surgical History: Coronary Bypass/CABG, Heart Catheterization With Stent, Hernia Repair, Joint Replacement, Tonsillectomy Additional Past Surgical History / Comment(s): Precancerous skin lesion removed, right knee replacement, cyst removed, bilateral cataracts removed. Bare-metal stent placed to the RCA in February 2002; 4 vessel CABG 04/13/2020 Past Anesthesia/Blood Transfusion Reactions: No Reported Reaction Date of Last Stent Placement:: 2001 Past Psychological History: No Psychological Hx Reported Smoking Status: Never smoker Past Alcohol Use History: None Reported Additional Past Alcohol Use History / Comment(s): quit smoking 30-35 yrs. ago, started @age 13, up to 3ppd, quit in late 70's Past Drug Use History: None Reported - Past Family History Father Family Medical History: Cancer Mother Family Medical History: Cancer, Coronary Artery Disease (CAD) Medications and Allergies Home Medications Medication Instructions Recorded Confirmed Type Acetaminophen Tab [Tylenol] 1,000 mg PO Q6HR PRN tab 04/19/20 10/02/22 Rx Nitroglycerin Sl Tabs [Nitrostat] 0.4 mg SUBLINGUAL Q5M PRN #25 tab 05/12/20 10/02/22 Rx Baclofen [Lioresal] 1 dose PO DIRECTED 10/02/22 10/02/22 History Docusate [Colace] 100 mg PO BID 10/02/22 10/02/22 History Donepezil [Aricept] 5 mg PO HS 10/02/22 10/02/22 History Famotidine [Pepcid] 20 mg PO BID 10/02/22 10/02/22 History Furosemide [Lasix] 20 mg PO DAILY 10/02/22 10/02/22 History Metoprolol Tartrate [Lopressor] 25 mg PO DAILY 10/02/22 10/02/22 History Rosuvastatin [Crestor] 20 mg PO DAILY 10/02/22 10/02/22 History oxyCODONE HCL/ACETAMINOPHEN 1 tab PO Q4H PRN 10/02/22 10/02/22 History [oxyCODONE HCL/ACETAMINOPHEN 5-325] Allergies Allergy/AdvReac Type Severity Reaction Status Date / Time codeine Allergy Headache/brain Verified 10/02/22 21:45 swelling Physical Exam Vitals: Vital Signs Temp Pulse Pulse Resp BP BP Pulse Ox 10/03/22 02:18 98.0 F 72 17 129/66 98 10/03/22 00:01 97.9 F 77 18 149/72 97 10/02/22 22:33 76 18 147/81 97 10/02/22 19:25 97.8 F 62 18 141/87 97 Intake and Output 10/02/22 10/03/22 10/03/22 22:59 06:59 14:59 Intake Total 540 Balance 540 Intake: Oral 540 Other: Voiding Method Toilet Weight 81.647 kg 81.647 kg GENERAL: The patient is alert and oriented x3, not in any acute distress. Well developed, well nourished. HEENT: Pupils are round and equally reacting to light. EOMI. No scleral icterus. No conjunctival pallor. Normocephalic, atraumatic. No pharyngeal erythema. No thyromegaly. CARDIOVASCULAR: S1 and S2 present. No murmurs, rubs, or gallops. PULMONARY: Chest is clear to auscultation, no wheezing or crackles. ABDOMEN: Soft, nontender, nondistended, normoactive bowel sounds. No palpable organomegaly. MUSCULOSKELETAL: No joint swelling or deformity. -EXTREMITIES: No cyanosis, clubbing, or pedal edema. Left knee surgical wound with a dressing in place NEUROLOGICAL: Gross neurological examination did not reveal any focal deficits. SKIN: No rashes. no petechiae. Results CBC & Chem 7: 10/02/22 19:50 10/02/22 19:50 Labs: Abnormal Lab Results - Last 24 Hours (Table) 10/02/22 10/02/22 Range/Units 19:50 19:50 WBC 13.6 H (3.8-10.6) k/uL RBC 3.28 L (4.30-5.90) m/uL Hgb 10.4 L (13.0-17.5) gm/dL Hct 33.0 L (39.0-53.0) % MCV 100.7 H (80.0-100.0) fL RDW 22.6 H (11.5-15.5) % Plt Count 905 H (150-450) k/uL Neutrophils # 8.7 H (1.3-7.7) k/uL Eosinophils # 1.3 H (0-0.7) k/uL Macrocytosis Marked A BUN 23 H (9-20) mg/dL Magnesium 2.5 H (1.6-2.3) mg/dL ALT 50 H (4-49) U/L Total Protein 6.1 L (6.3-8.2) g/dL Assessment and Plan Assessment: Bilateral upper extremity shakiness, secondary to myoclonic jerks secondary to pain medication,unlikely TIA. Chronic atrial fibrillation Hypertension Hyperlipidemia History of coronary artery disease status post CABG and stent placement Chronic heart failure Status post left knee arthroplasty on Plan: Continue with aspirin Neurology consult is on the case, discussed the case with him and cleared the patient for discharge Echocardiogram is pending Nitroglycerin Neutralizer evaluated the patient Possible discharge today once echocardiogram is back and cleared by packing machine tender Discontinue on tapered pain medication, patient informed and he agrees
--- NOTE | 2022-10-03 12:50 | P.CNNES ---
History of Present Illness Consult date: 10/03/22 Requesting physician: Renny Adam Reason for Consult: Possible TIA History of Present Illness: Patient is a 81-year-old male came to the hospital by ambulance yesterday at 7:23 PM for involuntary movements of his arms. Patient states that he underwent left knee arthroplasty on 09/24/2021. Patient was discharged on o xycodone/acetaminophen 3/325 mg every 4 hours as needed. Patient has been taking pain medication religiously every 4 hours(6 tablets a day). He became excessively somnolent. Yesterday night he slept 11 hours, woke up at 10 AM for an hour and then slept again from 11 AM to 2 PM. His dog woke him up, and at that time he noticed that he could not control his arm fingers or hand, appears to be having myoclonic jerks. Patient managed to get up to go to the walker and let the dog out. He sat down in the arms did again. He was noticing visual illusion, as when he was closing one or the other eye, the picture was shifting. There was no double vision, loss of vision. No focal numbness, tingling, slurred speech, facial droop. This has never happened below. Due to these reasons, he called the ambulance. EMS flow sheet not available in the chart. Vital signs upon arrival blood pressure 141/87 pulse rate 62 temperature 97.8. Blood tests shows WBC 13.6 hemoglobin 10.4, with elevated MCV 100.7 and platelets 905. PT/PTT normal, Chem-7 normal, AST 50, ALT 50 borderline elevated. Troponin negative. CT head revealed no acute intracranial process. Nonspecific white matter changes, li cande secondary to chronic small vessel ischemic disease. I personally reviewed CT head, and agree with the findings. There is evidence of small vessel disease. Perhaps old lacune in the right alcides. CTA head and neck normal. EKG shows sinus rhythm. Patient had a 2-D echo on 01/30/2022 showed mildly impaired left ventricular systolic function with EF between 45-50%. Mild concentric LVH. Inferior hypokinesis. Mildly increased left atrial volume. Home medications include baclofen, Crestor 20 mg, Lasix 20 mg, Pepcid, Aricept 5 mg, Colace, oxycodone 5/325, metoprolol 25 mg. Patient has history of smoking since age 19. He started a few cigarettes a day, and slowly went up until he was smoking 3 packs per day before he quit smoking at age 51. He seldom drinks alcohol. Denies COPD or asthma. Denies diabetes or hypertension. Review of Systems Constitutional: Denies chills, Denies fever Eyes: denies blurred vision (Patient having some visual illusion, with image shifting when closing one or the other eye.), denies diplopia, denies pain Ears: deny: decreased hearing, ear discharge Ears, nose, mouth and throat: Denies headache, Denies sore throat Cardiovascular: Denies chest pain, Denies shortness of breath Respiratory: Denies cough, Denies hemoptysis, Denies wheezing Gastrointestinal: Denies abdominal pain, Denies diarrhea, Denies nausea, Denies vomiting Musculoskeletal: Denies frequent falls, Denies myalgias Integumentary: Denies pruritus, Denies rash Neurological: Reports as per HPI Psychiatric: Denies anxiety, Denies depression Endocrine: Denies fatigue, Denies weight change Past Medical History Past Medical History: Atrial Fibrillation, Coronary Artery Disease (CAD), Heart Failure, Hyperlipidemia, Hypertension, Myocardial Infarction ([place]), Osteoarthritis (OA) Additional Past Medical History / Comment(s): Sepsis secondary to Serratia UTI and the patient was bacteremic Last Myocardial Infarction Date:: 2001 History of Any Multi-Drug Resistant Organisms: None Reported Past Surgical History: Coronary Bypass/CABG, Heart Catheterization With Stent, Hernia Repair, Joint Replacement, Tonsillectomy Additional Past Surgical History / Comment(s): Precancerous skin lesion removed, right knee replacement, cyst removed, bilateral cataracts removed. Bare-metal stent placed to the RCA in February 2002; 4 vessel CABG 04/13/2020 Past Anesthesia/Blood Transfusion Reactions: No Reported Reaction Date of Last Stent Placement:: 2001 Past Psychological History: No Psychological Hx Reported Smoking Status: Never smoker Past Alcohol Use History: None Reported Additional Past Alcohol Use History / Comment(s): quit smoking 30-35 yrs. ago, started @age 13, up to 3ppd, quit in late 70's Past Drug Use History: None Reported - Past Family History Father Family Medical History: Cancer Mother Family Medical History: Cancer, Coronary Artery Disease (CAD) Medications and Allergies Home Medications Medication Instructions Recorded Confirmed Type Acetaminophen Tab [Tylenol] 1,000 mg PO Q6HR PRN tab 04/19/20 10/02/22 Rx Nitroglycerin Sl Tabs [Nitrostat] 0.4 mg SUBLINGUAL Q5M PRN #25 tab 05/12/20 10/02/22 Rx Baclofen [Lioresal] 5 mg PO TID 10/02/22 10/03/22 History Donepezil [Aricept] 5 mg PO HS 10/02/22 10/02/22 History Famotidine [Pepcid] 20 mg PO BID 10/02/22 10/02/22 History Furosemide [Lasix] 20 mg PO DAILY 10/02/22 10/02/22 History Metoprolol Tartrate [Lopressor] 25 mg PO DAILY 10/02/22 10/02/22 History Rosuvastatin [Crestor] 20 mg PO DAILY 10/02/22 10/02/22 History oxyCODONE HCL/ACETAMINOPHEN 1 tab PO Q4H PRN 10/02/22 10/02/22 History [oxyCODONE HCL/ACETAMINOPHEN 5-325] Aspirin EC [Ecotrin] 325 mg PO DAILY 10/03/22 10/03/22 History Multivitamins, Thera [Multivitamin 1 tab PO DAILY 10/03/22 10/03/22 History (formulary)] Sennosides [Senokot] 17.2 mg PO BID PRN 10/03/22 10/03/22 History Allergies Allergy/AdvReac Type Severity Reaction Status Date / Time codeine Allergy Headache/brain Verified 10/02/22 21:45 swelling Physical Examination - Vital Signs Vital Signs: Vital Signs Temp Pulse Pulse Resp BP BP Pulse Ox 10/03/22 07:27 98 10/03/22 02:18 98.0 F 72 17 129/66 98 10/03/22 00:01 97.9 F 77 18 149/72 97 10/02/22 22:33 76 18 147/81 97 10/02/22 19:25 97.8 F 62 18 141/87 97 FiO2 10/03/22 07:27 21 10/03/22 02:18 10/03/22 00:01 10/02/22 22:33 10/02/22 19:25 Intake and Output 10/02/22 10/03/22 10/03/22 22:59 06:59 14:59 Intake Total 540 Balance 540 Intake: Oral 540 Other: Voiding Method Toilet Weight 81.647 kg 81.647 kg Patient is an elderly male, very pleasant, in no acute distress. Patient is alert awake oriented to time place and person. Speech and language functions are normal. Patient can name and repeat very well. No aphasia or dysarthria. Attention, concentration and fund of knowledge is adequate. On cranial nerve examination, pupils are equal, round and reacting to light, visual frias are full on confrontation, with no neglect on double simultaneous stimulation. Extraocular muscles are intact with no nystagmus. Face is symm etric, tongue protrudes to the midline. Palatal elevation and sensation normal, hearing and shoulder shrug normal, facial sensation normal. On muscle strength testing, there is no pronator drift and the strength is normal in arms and legs distally and proximally. Deep tendon reflexes are overall symmetric, hypoactive, and plantars downgoing bilaterally. Sensory to touch is equal with no neglect on double simultaneous stimulation. Cerebellar function showed no ataxia for [id number] testing. No dysdiadochokinesia. No ataxia for [id number] testing on either side. Tone and bulk of muscles normal. Patient was noted to have mild myoclonic jerks of the hands at rest and slightly with the posture. Gait deferred.. On general examination, there is no carotid bruit or murmur, S1-S2 audible. Chest is clear on consultation. Abdomen is soft nontender. No organomegaly, bowel sounds present. Peripheral pulses are present. No edema. Results - Laboratory Findings CBC and BMP: 10/02/22 19:50 10/02/22 19:50 Abnormal Lab Findings: Abnormal Labs 10/02/22 10/02/22 19:50 19:50 WBC 13.6 H RBC 3.28 L Hgb 10.4 L Hct 33.0 L MCV 100.7 H RDW 22.6 H Plt Count 905 H Neutrophils # 8.7 H Eosinophils # 1.3 H Macrocytosis Marked A BUN 23 H Magnesium 2.5 H ALT 50 H Total Protein 6.1 L Assessment and Plan Assessment: * Excessive somnolence and myoclonic jerks, likely due to side effect of opiates. Patient after surgery has been taking 6 tablets of oxycodone/acetaminophen, which likely resulted in side effects. * Status post left knee surgery * Coronary artery disease * Previous history of atrial fibrillation (per PMH) * Heart failure * Hyperlipidemia * Hypertension * Osteoarthritis * X tobacco use Plan: * Patient has presented with excessive somnolence, and myoclonic jerks. Patient was taking 6 tablets of oxycodone/acetaminophen daily, which probably r esulted in side effects. * Patient's current neurological examination is completely normal. * Suggest limiting opiates to 2-3 times a day. Preferred nonopiate analgesics. * Patient's past medical history reports atrial fibrillation, currently not on anticoagulation. Cardiology on board. We will start aspirin 81 mg daily pending further evaluations. * CTA of head and neck revealed no evidence of dissection of the cervical internal carotid arteries or vertebral arteries or any evidence of significant stenosis at the carotid bifurcations. No evidence of intracranial high-grade stenosis or intracranial aneurysm. * 2-D echo has been completed, results pending. * Lipid panel with cholesterol 124, LDL 58, HDL 49 and triglycerides 80. Continue Lipitor 40 mg daily. * Check hemoglobin A1c * Telemetry monitoring so far showing sinus rhythm, PACs and PVCs. * Discussed with primary physician. Neurology will follow along. Thank you for the consult.
[2022-10-03] MEDS: ASPIRIN 81 MG PO SCH (13:20)
[2022-10-03] MEDS: BACLOFEN 10 MG TAB PO SCH ×2 (13:27→20:47)
[2022-10-03] MEDS: DONEPEZIL 5 MG TAB PO SCH (20:48)
[2022-10-03] MEDS ORDERED: VANCOMYCIN IV PER PHARMACY 1 EACH MISC MISCELLANE PRN (21:08)
[2022-10-03] MEDS ORDERED: VANCOMYCIN 1,500 MG in SODIUM CHLORIDE 0.9% 500 ML 500 ML IVPB SCH (22:00)
[2022-10-04] MEDS: SODIUM CHLORIDE 0.9% 1,000 ML IV SCH ×2 (04:51→16:57)
[2022-10-04 05:36] LABS: African American GFR (CKD) 89 (>60 ml/min/1.73 sqM); Non-African American GFR(CKD) 77 (>60 ml/min/1.73 sqM)
--- NOTE | 2022-10-04 09:23 | CA ---
Transthoracic Echo Report Name: Anatoly Pereyra Age: 81 Gender: M : 1940 Exam Date: 10/03/2022 10:25 Exam Location: [facility] Ht (in): 67 Wt (lb): 180 Ordering Physician: Celso Stack MD ([id number]) Attending/Referring Phys: Zee Knowles MD ([id number]) Manager Of Organizational Development Gali Del Angel RDCS Procedure CPT: Indications: cardiology Cardiac Hx: Technical Quality: Fair Contrast 1: Total Dose (mL): Contrast 2: Total Dose (mL): MEASUREMENTS (Male / Female) Normal Values 2D ECHO LV Diastolic Diameter PLAX 5.3 cm 4.2 - 5.9 / 3.9 - 5.3 cm LV Systolic Diameter PLAX 3.8 cm IVS Diastolic Thickness 1.3 cm 0.6 - 1.0 / 0.6 - 0.9 cm LVPW Diastolic Thickness 1.1 cm 0.6 - 1.0 / 0.6 - 0.9 cm LV Relative Wall Thickness 0.5 RV Internal Dim ED PLAX 3.5 cm LA Volume 64.3 cm??? 18 - 58 / 22 - 52 cm??? M-MODE Aortic Root Diameter MM 3.2 cm LA Systolic Diameter MM 3.8 cm LA Ao Ratio MM 1.2 AV Cusp Separation MM 1.8 cm DOPPLER AV Peak Velocity 178.1 cm/s AV Peak Gradient 12.7 mmHg AV Mean Velocity 133.9 cm/s AV Mean Gradient 7.7 mmHg AV Velocity Time Integral 35.4 cm LVOT Peak Velocity 115.1 cm/s LVOT Peak Gradient 5.3 mmHg MV Area PHT 4.7 cm??? Mitral E Point Velocity 87.9 cm/s Mitral A Point Velocity 105.4 cm/s Mitral E to A Ratio 0.8 MV Deceleration Time 162.0 ms MV E' Velocity 7.0 cm/s Mitral E to MV E' Ratio 12.6 TR Peak Velocity 246.7 cm/s TR Peak Gradient 24.3 mmHg Right Ventricular Systolic Press 27.5 mmHg FINDINGS Left Ventricle Mildly increased septal wall thickness. Hypokinetic inferior wall. Left ventricular ejection fraction is estimated at 45-50 %. Abnormal (paradoxical) septal motion consistent with postoperative state. Right Ventricle Mild right ventricular dilatation. Right ventricular systolic pressure within normal limits. Right Atrium Normal right atrial size. Left Atrium Mildly increased left atrial volume. Mildly increased left atrial area. Mitral Valve No mitral stenosis. Mild mitral regurgitation. Aortic Valve No aortic valve stenosis or regurgitation. Tricuspid Valve Mild tricuspid regurgitation. Pulmonic Valve Trace pulmonic regurgitation. Pericardium No pericardial effusion. Aorta Normal size aortic root and proximal ascending aorta. CONCLUSIONS Inferior wall hypokinesis with mild LV dysfunction with an ejection fraction of 45% Mild mitral regurgitation Previewed by: Dr. Celso Stack MD (Electronically Signed) Final Date: 04 October 2022 09:23
[2022-10-04 09:39] LABS: Anisocytosis Moderate; Basophils # (A) 0.1 k/uL (0-0.2); Basophils % (A) 0 %; Eosinophils # (A) 1.4 k/uL (0-0.7); Eosinophils % (A) 12 %; HCT 30.4 % (39.0-53.0); HGB 9.6 gm/dL (13.0-17.5); Hypochromasia Slight; Lymphocytes # (A) 2.2 k/uL (1.0-4.8); Lymphocytes % (A) 19 %; MCH 31.7 pg (25.0-35.0); MCHC 31.5 g/dL (31.0-37.0); MCV 100.4 fL (80.0-100.0); Macrocytosis Moderate; Mean Platelet Volume 9.3; Monocytes # (A) 0.6 k/uL (0-1.0); Monocytes % (A) 5 %; Neutrophils % (A) 61 %; Platelet Count 807 k/uL (150-450); Poikilocytosis Slight; RBC 3.02 m/uL (4.30-5.90); WBC 11.5 k/uL (3.8-10.6)
[2022-10-04 09:41] LABS: ALT 46 U/L (4-49); AST 40 U/L (17-59); Albumin/Globulin Ratio 1.3; Alkaline Phosphatase 51 U/L (38-126); Anion Gap 3 mmol/L; Blood Urea Nitrogen 19 mg/dL (9-20); C Reactive Protein 3.1 mg/dL (<1.0); Carbon Dioxide 27 mmol/L (22-30); Chloride 105 mmol/L (98-107); Globulin 2.3 g/dL; Glucose 86 mg/dL (74-99); Potassium 4.7 mmol/L (3.5-5.1); Sodium 135 mmol/L (137-145); Total Bilirubin 0.8 mg/dL (0.2-1.3); Total Protein 5.3 g/dL (6.3-8.2)
--- NOTE | 2022-10-04 10:18 | XR ---
EXAMINATION TYPE: XR knee complete LT DATE OF EXAM: 10/04/2022 COMPARISON: None HISTORY: Recent knee replacement TECHNIQUE: 2 view left knee FINDINGS: Tibial and femoral components are present. No acute fracture or dislocation is evident. Sravanthi gical skin koby are present anteriorly. Diffuse soft tissue swelling may be present. No large join t effusion is evident. No suspicious cortical erosions evident. IMPRESSION: 1. Suggestion of soft tissue swelling over the left knee. 2. No acute osseous abnormality. Follow-up can be performed as clinically indicated.
[2022-10-04] MEDS: FAMOTIDINE 20 MG TAB PO SCH ×2 (10:54→20:18)
[2022-10-04] MEDS: ASPIRIN 81 MG PO SCH (10:54)
[2022-10-04] MEDS: FUROSEMIDE 20 MG TAB PO SCH (10:54)
[2022-10-04] MEDS: ATORVASTATIN 40 MG TAB PO SCH (10:54)
[2022-10-04] MEDS: BACLOFEN 10 MG TAB PO SCH ×3 (10:55→20:12)
[2022-10-04] MEDS: DOCUSATE 100 MG CAP PO SCH ×2 (10:55→20:11)
[2022-10-04] MEDS: METOPROLOL TARTRATE 25 MG TAB PO SCH (10:55)
[2022-10-04] MEDS: HEPARIN SODIUM,PORCINE/PF 5,000 UNIT/0.5 ML SYRINGE SQ SCH ×2 (10:56→20:13)
[2022-10-04 11:52] LABS: Erythrocyte Sedimentation Rate 36 mm/hr (0-15)
[2022-10-04] MEDS: oxyCODONE-APAP 5-325MG 1 EACH TAB PO PRN (12:32)
--- NOTE | 2022-10-04 12:52 | P.CNOR ---
History of Present Illness - [facility] Consult date: 10/04/22 Requesting physician: Parveen Martinez Consult reason: other (Possible left knee infection) History of present illness: History of Presenting Illness Patient is a pleasant 81-year-old male who presented to the ER with TIA (transient ischemic attack), Tremors of nervous system symptoms. Our services have been consult did for a possible left knee infection. Patient reports a recent left total knee replacement performed by Dr. Nunez on 09/24/2022. Patient states increase in swelling and redness since procedure. He denies having any homecare services. Original surgical dressing remained intact, mild dark shadowing noted on dressing. Incision is well approximated, koby are intact. New dressing applied. Orthopedic history includes a total right knee replacement. Patient states that he does live at home and is normally independent. He is currently using a walker. Patient states pain is managed on current regimen. Xrays of the left knee demonstrates soft tissue swelling over the left knee. No acute osseous abnormality. No large joint effusion is evident. No suspicious cortical erosions evident. Review of Systems Pertinent positives and negatives as discussed in HPI, a complete review of systems was performed and all other systems are negative. Physical Examination General: The patient is awake and alert, in no acute distress Skin: left knee presents with edema and erythema that extends down to the left ankle; surgical incision to left knee, incision is well approximated, koby are intact. New dressing applied. Eye: Pupils are equal, round and reactive to light, extra-ocular movements are intact; there is normal conjunctiva bilaterally. Neck: The neck is supple, there is no tenderness and ROM intact. Cardiovascular: There is a regular rate and rhythm. No murmur, rub or gallop is appreciated. Respiratory: Lungs are clear to auscultation, respirations are non-labored, breath sounds are equal. Gastrointestinal: Soft, non-distended, non-tender abdomen. Back: There is no tenderness to palpation in the midline, paralumbar, parathoracic or buttocks region. There is no obvious deformity. Musculoskeletal: ROM to the left lower extremity limited secondary to pain and stiffness from surgical procedure. Muscle strength in the left lower extremity, hip flexor 4+/5, knee flexor 4/5, ankle dorsiflexor 4+/5, ankle plantarflexion 4+/5 and extensor hallucis 4+/5. Neurological: CN 2-12 intact. There are no obvious motor or sensory deficits. Movement and coordination equal and intact. Sensory exam to light touch intact C5-T1 and intact from L2-S1. Reflexes 2/4 in bilateral upper and lower extremities. Negative Hoffmans, babinski, and clonus signs. Psychiatric: Cooperative, appropriate mood & affect, normal judgment. Assessment and Plan Possible cellulitis of the left lower extremity s/p left total knee replacement -Continue with IV antibiotic therapy, recommend converting to oral antibiotic at discharge -Continue with pain mangement -Ice and elevate -Recommend PT/OT WBAT -Recommend to transfer to Dr. Nunez at [facility] Our services will be signing off at this time. Please feel free to reach out with any questions or concerns. I reviewed and discussed this case with my attending Dr. Sandoval, whom has reviewed this chart and films and is in agreement with assessment and plan of care as outlined above. I have personally seen and examined the patient, performed the documentation and the assessment and plan as written. Number of minutes spent on the visit: 20m. Past Medical History Past Medical History: Atrial Fibrillation, Coronary Artery Disease (CAD), Heart Failure, Hyperlipidemia, Hypertension, Myocardial Infarction ([place]), Osteoarthritis (OA) Additional Past Medical History / Comment(s): Sepsis secondary to Serratia UTI and the patient was bacteremic Last Myocardial Infarction Date:: 2001 History of Any Multi-Drug Resistant Organisms: None Reported Past Surgical History: Coronary Bypass/CABG, Heart Catheterization With Stent, Hernia Repair, Joint Replacement, Tonsillectomy Additional Past Surgical History / Comment(s): Precancerous skin lesion removed, right knee replacement, cyst removed, bilateral cataracts removed. Bare-metal stent placed to the RCA in February 2002; 4 vessel CABG 04/13/2020 Past Anesthesia/Blood Transfusion Reactions: No Reported Reaction Date of Last Stent Placement:: 2001 Past Psychological History: No Psychological Hx Reported Smoking Status: Never smoker Past Alcohol Use History: None Reported Additional Past Alcohol Use History / Comment(s): quit smoking 30-35 yrs. ago, started @age 13, up to 3ppd, quit in late 70's Past Drug Use History: None Reported - Past Family History Father Family Medical History: Cancer Mother Family Medical History: Cancer, Coronary Artery Disease (CAD) Medications and Allergies Home Medications Medication Instructions Recorded Confirmed Type Acetaminophen Tab [Tylenol] 1,000 mg PO Q6HR PRN tab 04/19/20 10/02/22 Rx Nitroglycerin Sl Tabs [Nitrostat] 0.4 mg SUBLINGUAL Q5M PRN #25 tab 05/12/20 10/02/22 Rx Baclofen [Lioresal] 5 mg PO TID 10/02/22 10/03/22 History Donepezil [Aricept] 5 mg PO HS 10/02/22 10/02/22 History Famotidine [Pepcid] 20 mg PO BID 10/02/22 10/02/22 History Furosemide [Lasix] 20 mg PO DAILY 10/02/22 10/02/22 History Metoprolol Tartrate [Lopressor] 25 mg PO DAILY 10/02/22 10/02/22 History Rosuvastatin [Crestor] 20 mg PO DAILY 10/02/22 10/02/22 History oxyCODONE HCL/ACETAMINOPHEN 1 tab PO Q4H PRN 10/02/22 10/02/22 History [oxyCODONE HCL/ACETAMINOPHEN 5-325] Aspirin EC [Ecotrin] 325 mg PO DAILY 10/03/22 10/03/22 History Multivitamins, Thera [Multivitamin 1 tab PO DAILY 10/03/22 10/03/22 History (formulary)] Sennosides [Senokot] 17.2 mg PO BID PRN 10/03/22 10/03/22 History Allergies Allergy/AdvReac Type Severity Reaction Status Date / Time codeine Allergy Headache/brain Verified 10/02/22 21:45 swelling Results - Labs Labs: Abnormal Lab Results - Last 24 Hours (Table) 10/04/22 10/04/22 Range/Units 04:49 04:49 WBC 11.5 H (3.8-10.6) k/uL RBC 3.02 L (4.30-5.90) m/uL Hgb 9.6 L (13.0-17.5) gm/dL Hct 30.4 L (39.0-53.0) % MCV 100.4 H (80.0-100.0) fL RDW 22.0 H (11.5-15.5) % Plt Count 807 H (150-450) k/uL Sodium 135 L (137-145) mmol/L Calcium 8.0 L (8.4-10.2) mg/dL C-Reactive Protein 3.1 H (<1.0) mg/dL Total Protein 5.3 L (6.3-8.2) g/dL Albumin 3.0 L (3.5-5.0) g/dL H & H 10/02/22 10/04/22 Range/Units 19:50 04:49 Hgb 10.4 L 9.6 L (13.0-17.5) gm/dL Hct 33.0 L 30.4 L (39.0-53.0) % Coagulation 10/02/22 Range/Units 19:50 INR 0.9 (<1.2) Result Diagrams: 10/04/22 04:49 10/04/22 04:49
--- NOTE | 2022-10-04 14:33 | P.PN ---
Subjective This is a pleasant 9 years old male with past medical history of Atrial Fibrillation, Coronary Artery Disease (status post CABG and stent placement, Heart Failure, Hyperlipidemia, Hypertension, Osteoarthritis Upper extremity shaking with weakness. Patient states that she has jerking movement in both upper extremities, there were symmetrical and it looks like they stopped now when I see the patient, most likely it looks like myoclonic jerks, suspicious for extensive pain medication he was taking narcotics every 4 hours because of his recent left knee surgery on 09/24. Patient was counseled and he is agreeable to stop taking his pain medication although he was counseled to taper them. He is agreeable to stop or taper them gradually. He denies any other symptoms, no blurred vision or slurred speech, no headache or dizziness, no weakness or numbness. Also patient with no chest pain or dyspnea or coughing however he requested data miner to evaluate him. Dr. Stack saw the patient and he recommended echocardiogram which is pending I discussed the case with the neurologist service they have already cleared the patient for discharge Vitals are stable He has mild leukocytosis of 13.6. Hemoglobin 10.4. Platelet count elevated 905 INR 0.9 BMP is unremarkable, magnesium 2.5, liver enzymes not significantly elevated bilirubin normal 0.8. Chest x-ray: No acute process. CT of the brain no acute intracranial process CTA of the head and neck: No acute process, no dissection or high-grade stenosis or aneurysm In the emergency room patient was given normal saline 100 mL per hour. 10/04/2022 I chronic jerks improved after stopping underwent the frequency of his pain medication. Echocardiogram was showing mild impaired LV function 45-50%. Patient was doing well from cardiology and nephrology service However patient developed left leg cellulitis, and was started on cefazolin, ESR and CRP mildly elevated. Continue with normal saline and lower the dose to 50 mL per hour. Patient continued on aspirin 81 mg Medications Objective - Vital Signs Vital signs: Vital Signs Temp 97.8 F 10/04/22 07:00 Pulse 80 10/04/22 07:00 Resp 16 10/04/22 07:00 BP 143/73 10/04/22 07:00 Pulse Ox 97 10/04/22 07:00 FiO2 21 10/03/22 07:27 Intake & Output 01/26/23 01/27/23 01/27/23 18:59 06:59 18:59 Intake Total 600 1320 Balance 600 1320 Intake: Oral 600 1320 Other: Voiding Method Toilet # Voids 6 - Labs CBC & Chem 7: 10/04/22 04:49 10/04/22 04:49 Labs: Abnormal Lab Results - Last 24 Hours (Table) 10/04/22 10/04/22 10/04/22 Range/Units 04:49 04:49 12:32 WBC 11.5 H (3.8-10.6) k/uL RBC 3.02 L (4.30-5.90) m/uL Hgb 9.6 L (13.0-17.5) gm/dL Hct 30.4 L (39.0-53.0) % MCV 100.4 H (80.0-100.0) fL RDW 22.0 H (11.5-15.5) % Plt Count 807 H (150-450) k/uL Eosinophils # 1.4 H (0-0.7) k/uL ESR 36 H (0-15) mm/hr Sodium 135 L (137-145) mmol/L Calcium 8.0 L (8.4-10.2) mg/dL C-Reactive Protein 3.1 H 3.0 H (<1.0) mg/dL Total Protein 5.3 L (6.3-8.2) g/dL Albumin 3.0 L (3.5-5.0) g/dL Assessment and Plan Assessment: Left leg cellulitis Bilateral upper extremity shakiness, secondary to myoclonic jerks secondary to pain medication,unlikely TIA. Chronic atrial fibrillation Hypertension Hyperlipidemia History of coronary artery disease status post CABG and stent placement Chronic heart failure Status post left knee arthroplasty on Plan: Continue with cefazolin, ID team of case Continue with aspirin Neurolog and cardiology consult on the case, patient therefore discharged from their perspective Possible discharge today once echocardiogram is back and cleared by data miner Discontinue on tapered pain medication, patient informed and he agrees
--- NOTE | 2022-10-04 17:05 | P.CONS ---
History of Present Illness - Reason for Consult Consult date: 10/04/22 - History of Present Illness Patient is a 81 year old male with a past medical history significant for hypertension hyperlipidemia atrial fibrillation cardiac disease heart failure in this patient who is status post left total knee replacement performed by Dr. Nunez on 09/24/2022, patient mentioned he was doing well initially however subsequently noticed having increasing swelling to the left lower extremity for the patient was evaluated at [facility] ER patient did have x-ray and abdominal ultrasound apparently was negative and the patient was subsequently sent home patient subsequently presenting to the [facility] ER on 10/02/2022 for evaluation of weakness and tremors for the patient has been evaluated by neurology and has been attributed to possible overdosing with his pain medication, the patient did have a compression dressing to the left lower extremity which was removed last evening and the patient was noticed to have increasing erythema to the left lower extremity patient has been afebrile during this hospital stay however he did have white count of 13.6 with a left shift, kidney function was normal liver enzymes are normal CRP was elevated patient was started on vancomycin concerning for left lower eczema cellulitis infectious disease was consulted for further management this morning. At the time of evaluation this morning the patient denies having any fever or any chills patient denies having any worsening pain to the left knee area his main complaint remains to be swelling and erythema to the left lower extremity no significant pain currently do not have any open wound or any drainage Past Medical History Past Medical History: Atrial Fibrillation, Coronary Artery Disease (CAD), Heart Failure, Hyperlipidemia, Hypertension, Myocardial Infarction ([place]), Osteoarthritis (OA) Additional Past Medical History / Comment(s): Sepsis secondary to Serratia UTI and the patient was bacteremic Last Myocardial Infarction Date:: 2001 History of Any Multi-Drug Resistant Organisms: None Reported Past Surgical History: Coronary Bypass/CABG, Heart Catheterization With Stent, Hernia Repair, Joint Replacement, Tonsillectomy Additional Past Surgical History / Comment(s): Precancerous skin lesion removed, right knee replacement, cyst removed, bilateral cataracts removed. Bare-metal stent placed to the RCA in February 2002; 4 vessel CABG 04/13/2020 Past Anesthesia/Blood Transfusion Reactions: No Reported Reaction Date of Last Stent Placement:: 2001 Past Psychological History: No Psychological Hx Reported Smoking Status: Never smoker Past Alcohol Use History: None Reported Additional Past Alcohol Use History / Comment(s): quit smoking 30-35 yrs. ago, started @age 13, up to 3ppd, quit in late 70's Past Drug Use History: None Reported - Past Family History Father Family Medical History: Cancer Mother Family Medical History: Cancer, Coronary Artery Disease (CAD) Medications and Allergies Home Medications Medication Instructions Recorded Confirmed Type Acetaminophen Tab [Tylenol] 1,000 mg PO Q6HR PRN tab 04/19/20 10/02/22 Rx Nitroglycerin Sl Tabs [Nitrostat] 0.4 mg SUBLINGUAL Q5M PRN #25 tab 05/12/20 10/02/22 Rx Baclofen [Lioresal] 5 mg PO TID 10/02/22 10/03/22 History Donepezil [Aricept] 5 mg PO HS 10/02/22 10/02/22 History Famotidine [Pepcid] 20 mg PO BID 10/02/22 10/02/22 History Furosemide [Lasix] 20 mg PO DAILY 10/02/22 10/02/22 History Metoprolol Tartrate [Lopressor] 25 mg PO DAILY 10/02/22 10/02/22 History Rosuvastatin [Crestor] 20 mg PO DAILY 10/02/22 10/02/22 History oxyCODONE HCL/ACETAMINOPHEN 1 tab PO Q4H PRN 10/02/22 10/02/22 History [oxyCODONE HCL/ACETAMINOPHEN 5-325] Aspirin EC [Ecotrin] 325 mg PO DAILY 10/03/22 10/03/22 History Multivitamins, Thera [Multivitamin 1 tab PO DAILY 10/03/22 10/03/22 History (formulary)] Sennosides [Senokot] 17.2 mg PO BID PRN 10/03/22 10/03/22 History Allergies Allergy/AdvReac Type Severity Reaction Status Date / Time codeine Allergy Headache/brain Verified 10/02/22 21:45 swelling Physical Exam Vitals: Vital Signs Temp Pulse Resp BP Pulse Ox 10/04/22 07:00 97.8 F 80 16 143/73 97 10/04/22 02:15 98.1 F 65 17 126/67 96 10/03/22 21:02 98 10/03/22 20:00 73 16 10/03/22 19:33 98.2 F 75 18 138/66 97 10/03/22 14:24 97.7 F 73 16 138/70 99 Intake and Output 10/03/22 10/04/22 10/04/22 22:59 06:59 14:59 Intake Total 780 540 Balance 780 540 Intake: Oral 780 540 Other: Voiding Method Toilet Results CBC & Chem 7: 10/04/22 04:49 10/04/22 04:49 Labs: Abnormal Lab Results - Last 24 Hours (Table) 10/04/22 10/04/22 Range/Units 04:49 04:49 WBC 11.5 H (3.8-10.6) k/uL RBC 3.02 L (4.30-5.90) m/uL Hgb 9.6 L (13.0-17.5) gm/dL Hct 30.4 L (39.0-53.0) % MCV 100.4 H (80.0-100.0) fL RDW 22.0 H (11.5-15.5) % Plt Count 807 H (150-450) k/uL ESR 36 H (0-15) mm/hr Sodium 135 L (137-145) mmol/L Calcium 8.0 L (8.4-10.2) mg/dL C-Reactive Protein 3.1 H (<1.0) mg/dL Total Protein 5.3 L (6.3-8.2) g/dL Albumin 3.0 L (3.5-5.0) g/dL Assessment and Plan Plan: 1patient with a left lower extremity cellulitis in this patient who is status post left knee arthroplasty completed on 09/24/2022 8 [facility] patient did have a erythema and warmth to the left lower extremity which is mostly diffused no evidence of any induration open wound or any drainage and minimal erythema to the middle part office left knee, every afternoon and recent surgery and a prosthetic knee will need to treat this cellulitis aggressively 2blood cultures will be obtained along with inflammatory markers 3marked the area of the redness 4discontinue vancomycin to decrease risk of nephrotoxicity and start the patien t cefazolin 2 g every 8 hours and continue with compressive stockings to keep the swelling down We will follow on clinical condition and cultures to further adjust medication if needed Thank you for this consultation will follow this patient with you Time with Patient: Greater than 30
[2022-10-04] MEDS: DONEPEZIL 5 MG TAB PO SCH (20:11)
--- NOTE | 2022-10-04 21:36 | PN ---
PROGRESS NOTE SUBJECTIVE: Anatoly is an 81-year-old gentleman with recent history of left knee replacement surgery, who presented to hospital with involuntary movements involving upper extremities, and Cardiology had been consulted because of his cardiac history. He did not have a TIA. He has known CAD and has had prior bypass surgery. An echocardiogram on this admission revealed mild LV systolic dysfunction. The patient has history of paroxysmal atrial fibrillation in the postop setting, but subsequently has remained in sinus rhythm and has not had any documented episodes of atrial fibrillation on this admission, and per Neurology's notation, he did not even have TIA. OBJECTIVE: GENERAL: Today, he appears comfortable at rest. VITAL SIGNS: Stable. CHEST: Reveals good air entry bilaterally. HEART: Reveals first and second heart sounds. No gallop. No murmur. EXTREMITIES: Shows that the left knee is full and erythematous that is going to be addressed by the orthopedic surgeon and the admitting physician. ASSESSMENT AND PLAN: 1. Coronary artery disease, status post coronary artery bypass graft. 2. Involuntary movements of the upper extremities, not suggestive of transient ischemic attack. I reviewed echo findings with the patient. No further cardiac workup at this time. Please arrange follow up with Dr. Gideon Knowles, the patient's primary utility forester upon discharge. We will see him on an as-needed basis. Thank you for allowing me to participate in the care of this pleasant gentleman. MMODL / IJN: [id number] /
--- NOTE | 2022-10-05 02:28 | P.PN ---
Subjective Progress Note Date: 10/04/22 Patient was seen for a follow-up. Patient laying comfortably in the bed. Offers no complaints. Patient states the myoclonic jerks is completely resolved. Patient states that he was told that he may have cellulitis in the left leg. Objective - Vital Signs Vital signs: Vital Signs Temp 97.8 F 10/04/22 07:00 Pulse 80 10/04/22 07:00 Resp 16 10/04/22 07:00 BP 143/73 10/04/22 07:00 Pulse Ox 97 10/04/22 07:00 FiO2 21 10/03/22 07:27 Intake & Output 10/03/22 10/04/22 10/04/22 18:59 06:59 18:59 Intake Total 600 1320 Balance 600 1320 Intake: Oral 600 1320 Other: Voiding Method Toilet # Voids 6 - Exam Patient's mentation is normal. Examination is normal. Myoclonic jerks resolved. No tremors. - Labs CBC & Chem 7: 10/04/22 04:49 10/04/22 04:49 Labs: Abnormal Lab Results - Last 24 Hours (Table) 10/04/22 10/04/22 Range/Units 04:49 04:49 WBC 11.5 H (3.8-10.6) k/uL RBC 3.02 L (4.30-5.90) m/uL Hgb 9.6 L (13.0-17.5) gm/dL Hct 30.4 L (39.0-53.0) % MCV 100.4 H (80.0-100.0) fL RDW 22.0 H (11.5-15.5) % Plt Count 807 H (150-450) k/uL ESR 36 H (0-15) mm/hr Sodium 135 L (137-145) mmol/L Calcium 8.0 L (8.4-10.2) mg/dL C-Reactive Protein 3.1 H (<1.0) mg/dL Total Protein 5.3 L (6.3-8.2) g/dL Albumin 3.0 L (3.5-5.0) g/dL Assessment and Plan Assessment: * Excessive somnolence and myoclonic jerks, likely due to side effect of opiates. Patient after surgery has been taking 6 tablets of oxycodone/acetaminophen, which likely resulted in side effects. Patient also has cellulitis, which may be contributing to the myoclonic jerks. Rule out bacteremia. * Status post left knee surgery * Coronary artery disease * Previous history of atrial fibrillation (per PMH) * Heart failure * Hyperlipidemia * Hypertension * Osteoarthritis * X tobacco use Plan: * Patient's myoclonic jerks has resolved. * Suggest limiting opiates to 2-3 times a day. Preferred nonopiate analgesics. * Patient's past medical history reports atrial fibrillation, currently not on anticoagulation. Cardiology on board. We will start aspirin 81 mg daily pending further evaluations. * CTA of head and neck revealed no evidence of dissection of the cervical internal carotid arteries or vertebral arteries or any evidence of significant stenosis at the carotid bifurcations. No evidence of intracranial high-grade stenosis or intracranial aneurysm. * 2-D echo revealed inferior wall hypokinesis with mild left-ventricular dysfunction with an ejection fraction of 45%. Mild mitral regurgitation. Left atrium is mildly increased in volume. * Continue aspirin 81 mg daily. * Lipid panel with cholesterol 124, LDL 58, HDL 49 and triglycerides 80. Continue Lipitor 40 mg daily. * Hemoglobin A1c 5.6 * Telemetry monitoring so far showing sinus rhythm, PACs and PVCs. * Patient being treated for cellulitis with cefazolin. * As there is no active neurological issue, we will sign off. Please reconsult neurology if any concerns. Dr. Beauchamp covering neurology service over the weekend.
[2022-10-05] MEDS: ASPIRIN 81 MG PO SCH (08:48)
[2022-10-05] MEDS: METOPROLOL TARTRATE 25 MG TAB PO SCH (08:48)
[2022-10-05] MEDS: FUROSEMIDE 20 MG TAB PO SCH (08:48)
[2022-10-05] MEDS: oxyCODONE-APAP 5-325MG 1 EACH TAB PO PRN (08:48)
[2022-10-05] MEDS: FAMOTIDINE 20 MG TAB PO SCH ×2 (08:49→19:58)
[2022-10-05] MEDS: HEPARIN SODIUM,PORCINE/PF 5,000 UNIT/0.5 ML SYRINGE SQ SCH ×2 (08:49→19:58)
[2022-10-05] MEDS: ATORVASTATIN 40 MG TAB PO SCH (08:49)
[2022-10-05] MEDS: DOCUSATE 100 MG CAP PO SCH ×2 (08:49→19:58)
[2022-10-05] MEDS: BACLOFEN 10 MG TAB PO SCH ×3 (08:49→19:57)
[2022-10-05] MEDS: SODIUM CHLORIDE 0.9% 1,000 ML IV SCH (10:54)
--- NOTE | 2022-10-05 17:15 | P.PN ---
Subjective This is a pleasant 9 years old male with past medical history of Atrial Fibrillation, Coronary Artery Disease (status post CABG and stent placement, Heart Failure, Hyperlipidemia, Hypertension, Osteoarthritis Upper extremity shaking with weakness. Patient states that she has jerking movement in both upper extremities, there were symmetrical and it looks like they stopped now when I see the patient, most likely it looks like myoclonic jerks, suspicious for extensive pain medication he was taking narcotics every 4 hours because of his recent left knee surgery on 09/24. Patient was counseled and he is agreeable to stop taking his pain medication although he was counseled to taper them. He is agreeable to stop or taper them gradually. He denies any other symptoms, no blurred vision or slurred speech, no headache or dizziness, no weakness or numbness. Also patient with no chest pain or dyspnea or coughing however he requested clinical trial associate to evaluate him. Dr. Stack saw the patient and he recommended echocardiogram which is pending I discussed the case with the neurologist service they have already cleared the patient for discharge Vitals are stable He has mild leukocytosis of 13.6. Hemoglobin 10.4. Platelet count elevated 905 INR 0.9 BMP is unremarkable, magnesium 2.5, liver enzymes not significantly elevated bilirubin normal 0.8. Chest x-ray: No acute process. CT of the brain no acute intracranial process CTA of the head and neck: No acute process, no dissection or high-grade stenosis or aneurysm In the emergency room patient was given normal saline 100 mL per hour. 10/04/2022 I chronic jerks improved after stopping underwent the frequency of his pain medication. Echocardiogram was showing mild impaired LV function 45-50%. Patient was doing well from cardiology and nephrology service However patient developed left leg cellulitis, and was started on cefazolin, ESR and CRP mildly elevated. Continue with normal saline and lower the dose to 50 mL per hour. Patient continued on aspirin 81 mg Medications 10/05/2022 Patient left leg cellulitis improving I would say 50% improved however subtle completely resolved and I think he still needs IV antibiotic in case there is resistant bacteria. However cefazolin have been resolution of the infection. No knee arthritis. No chest pain or dyspnea. Discontinue IV fluids Check labs in the morning Objective - Vital Signs Vital signs: Vital Signs Temp 97.6 F 10/05/22 07:05 Pulse 78 10/05/22 07:05 Resp 17 01/28/23 07:05 BP 126/69 10/05/22 07:05 Pulse Ox 95 10/05/22 08:23 FiO2 21 10/03/22 07:27 Intake & Output 10/04/22 10/05/22 10/05/22 18:59 06:59 18:59 Intake Total 118 Balance 118 Intake: Oral 118 Other: Voiding Method Toilet # Voids 3 2 1 - Exam GENERAL: The patient is alert and oriented x3, not in any acute distress. Well developed, well nourished. HEENT: Pupils are round and equally reacting to light. EOMI. No scleral icterus. No conjunctival pallor. Normocephalic, atraumatic. No pharyngeal erythema. No thyromegaly. CARDIOVASCULAR: S1 and S2 present. No murmurs, rubs, or gallops. PULMONARY: Chest is clear to auscultation, no wheezing or crackles. ABDOMEN: Soft, nontender, nondistended, normoactive bowel sounds. No palpable organomegaly. MUSCULOSKELETAL: No joint swelling or deformity. -EXTREMITIES: No cyanosis, clubbing, or pedal edema. Left knee surgical wound with a dressing in place. Improving Left leg is swelling and redness and tenderness NEUROLOGICAL: Gross neurological examination did not reveal any focal deficits. SKIN: No rashes. no petechiae. - Labs CBC & Chem 7: 10/04/22 04:49 10/04/22 04:49 Labs: Abnormal Lab Results - Last 24 Hours (Table) 10/04/22 Range/Units 12:32 C-Reactive Protein 3.0 H (<1.0) mg/dL Assessment and Plan Assessment: Left leg cellulitis Bilateral upper extremity shakiness, secondary to myoclonic jerks secondary to pain medication,unlikely TIA. Chronic atrial fibrillation Hypertension Hyperlipidemia History of coronary artery disease status post CABG and stent placement Chronic heart failure Status post left knee arthroplasty on Plan: Continue with cefazolin, ID team of case Continue with aspirin Neurolog and cardiology consult on the case, patient therefore discharged from their perspective Possible discharge today once echocardiogram is back and cleared by clinical trial associate Discontinue on tapered pain medication, patient informed and he agrees
--- NOTE | 2022-10-05 19:56 | P.PN ---
Subjective Progress Note Date: 10/05/22 Principal diagnosis: Left lower extremity cellulitis Patient is a 81 year old male with a past medical history significant for hypertension hyperlipidemia atrial fibrillation cardiac disease heart failure in this patient who is status post left total knee replacement performed by Dr. Nunez on 09/24/2022, presented to hospital with some myoclonic jerks thought to be related to medication overdose, also noticed to have increasing swelling redness to the left leg concerning for cellulitis On today's evaluation is 10/05/2022, the patient denies having any fever or any chills breathing comfortably no chest pain shortness of cough no nausea no vomiting, the left lower extremity swelling redness has decreased denies pain to the left leg Objective - Vital Signs Vital signs: Vital Signs Temp 97.6 F 10/05/22 07:05 Pulse 78 10/05/22 07:05 Resp 17 10/05/22 07:05 BP 126/69 10/05/22 07:05 Pulse Ox 95 10/05/22 08:23 FiO2 21 10/03/22 07:27 Intake & Output 10/04/22 10/05/22 10/05/22 18:59 06:59 18:59 Intake Total 118 Balance 118 Intake: Oral 118 Other: Voiding Method Toilet # Voids 3 2 1 - Exam GENERAL DESCRIPTION: An elderly male lying in bed in no distress RESPIRATORY SYSTEM: Unlabored breathing , decreased breath sounds at bases HEART: S1 S2 regular rate and rhythm , ABDOMEN: Soft , no tenderness EXTREMITIES: Left lower extremity swelling and redness has decreased - Labs CBC & Chem 7: 10/04/22 04:49 10/04/22 04:49 Labs: Abnormal Lab Results - Last 24 Hours (Table) 10/04/22 10/04/22 Range/Units 04:49 12:32 Eosinophils # 1.4 H (0-0.7) k/uL ESR 36 H (0-15) mm/hr C-Reactive Protein 3.0 H (<1.0) mg/dL Assessment and Plan (1) Left leg cellulitis Current Visit: Yes Status: Acute Code(s): L03.116 - CELLULITIS OF LEFT LOWER LIMB SNOMED Code(s): 674212568 Plan: 1patient with a left lower extremity cellulitis in this patient who is status post left knee arthroplasty completed on 09/24/2022 8 [facility] patient did have a erythema and warmth to the left lower extremity which is mostly diffused no evidence of any induration open wound or any drainage and minimal erythema to the middle part office left knee, every afternoon and recent surgery and a prosthetic knee will need to treat this cellulitis aggressively 2blood cultures currently pending 3 patient seemed to have shown Clinical Improvement and Will Continue with the Cefazolin While Waiting for the Cultures to Finalize Time with Patient: Less than 30
[2022-10-05] MEDS: DONEPEZIL 5 MG TAB PO SCH (19:58)
[2022-10-06] MEDS: oxyCODONE-APAP 5-325MG 1 EACH TAB PO PRN ×2 (07:16→23:17)
[2022-10-06] MEDS: BACLOFEN 10 MG TAB PO SCH ×3 (08:27→20:12)
[2022-10-06] MEDS: FUROSEMIDE 20 MG TAB PO SCH (08:32)
[2022-10-06] MEDS: ATORVASTATIN 40 MG TAB PO SCH (08:32)
[2022-10-06] MEDS: ASPIRIN 81 MG PO SCH (08:32)
[2022-10-06] MEDS: FAMOTIDINE 20 MG TAB PO SCH ×2 (08:32→20:11)
[2022-10-06] MEDS: DOCUSATE 100 MG CAP PO SCH ×2 (08:32→20:11)
[2022-10-06] MEDS: METOPROLOL TARTRATE 25 MG TAB PO SCH (08:32)
[2022-10-06] MEDS: HEPARIN SODIUM,PORCINE/PF 5,000 UNIT/0.5 ML SYRINGE SQ SCH ×2 (08:32→20:12)
[2022-10-06 13:03] LABS: Basophils # (A) 0.08 X 10*3/uL (0.00-0.10); Basophils % (A) 0.6 %; HCT 29.5 % (39.6-50.0); HGB 9.5 g/dL (13.0-17.0); Immature Grans, Automated 2.1 %; Lymphocytes # (A) 2.61 X 10*3/uL (0.90-5.00); Lymphocytes % (A) 20.9 %; MCH 31.1 pg (27.0-32.0); MCHC 32.2 g/dL (32.0-37.0); MCV 96.7 fL (80.0-97.0); Mean Platelet Volume 9.8 fL (9.5-12.2); Monocytes # (A) 1.01 X 10*3/uL (0.20-1.00); Monocytes % (A) 8.1 %; NRBC Per 100 WBC 0.9 /100 WBCS (0.0-0.0); Neutrophils # (A) 6.55 X 10*3/uL (1.80-7.70); Neutrophils % (A) 52.3 %; Platelet Count 793 X 10*3/uL (140-440); Polychromasia 2+; RBC 3.05 X 10*6/uL (4.40-5.60); RDW 24.6 % (11.5-14.5); Target Cells 2+; WBC 12.51 X 10*3/uL (4.50-10.00)
--- NOTE | 2022-10-06 15:59 | P.PN ---
Subjective Progress Note Date: 10/06/22 Principal diagnosis: Left lower extremity cellulitis Patient is a 81 year old male with a past medical history significant for hypertension hyperlipidemia atrial fibrillation cardiac disease heart failure in this patient who is status post left total knee replacement performed by Dr. Nunez on 09/24/2022, presented to hospital with some myoclonic jerks thought to be related to medication overdose, also noticed to have increasing swelling redness to the left leg concerning for cellulitis On today's evaluation is 10/06/2022, the patient continues to be afebrile, the patient is breathing comfortably on room air, the patient denies chest pain shortness of cough no nausea no vomiting, the patient left lower extremity swelling redness has decreased in intensity no open wound or any drainage and denies pain to the left leg Objective - Vital Signs Vital signs: Vital Signs Temp 98.8 F 10/06/22 08:00 Pulse 65 10/06/22 08:00 Resp 17 10/06/22 08:00 BP 128/63 10/06/22 08:00 Pulse Ox 98 10/06/22 08:00 FiO2 21 10/03/22 07:27 Intake & Output 10/05/22 10/06/22 10/06/22 18:59 06:59 18:59 Intake Total 236 500 Balance 236 500 Intake: Oral 236 500 Other: Voiding Method Toilet # Voids 1 2 - Exam GENERAL DESCRIPTION: An elderly male lying in bed in no distress RESPIRATORY SYSTEM: Unlabored breathing , decreased breath sounds at bases HEART: S1 S2 regular rate and rhythm , ABDOMEN: Soft , no tenderness EXTREMITIES: Left lower extremity redness has significantly decreased in intensity - Labs CBC & Chem 7: 10/06/22 05:58 10/04/22 04:49 Labs: Abnormal Lab Results - Last 24 Hours (Table) 10/06/22 Range/Units 05:58 WBC 12.51 H (4.50-10.00) X 10*3/uL RBC 3.05 L (4.40-5.60) X 10*6/uL Hgb 9.5 L (13.0-17.0) g/dL Hct 29.5 L (39.6-50.0) % RDW 24.6 H (11.5-14.5) % Plt Count 793 H (140-440) X 10*3/uL Plt Count Comment INCREASED A Absolute Nucleated RBC 0.11 H (0.00-0.00) X 10*3/uL Immature Gran # 0.26 H (0.00-0.04) X 10*3/uL Monocytes # 1.01 H (0.20-1.00) X 10*3/uL Eosinophils # 2.00 H (0.04-0.35) X 10*3/uL NRBC/100 WBC Diff 0.9 H (0.0-0.0) /100 WBCS Microbiology - Last 24 Hours (Table) 10/04/22 12:32 Blood Culture - Preliminary Blood No Growth after 24 hours Assessment and Plan (1) Left leg cellulitis Current Visit: Yes Status: Acute Code(s): L03.116 - CELLULITIS OF LEFT LOWER LIMB SNOMED Code(s): 452454707 Plan: 1patient with a left lower extremity cellulitis in this patient who is status post left knee arthroplasty completed on 09/24/2022 8 [facility] patient did have a erythema and warmth to the left lower extremity which is mostly diffused no evidence of any induration open wound or any drainage and minimal erythema to the middle part office left knee, every afternoon and recent surgery and a prosthetic knee will need to treat this cellulitis aggressively 2blood cultures currently pending 3 patient seemed to have shown Clinical Improvement however the patient noticed to have slight worsening of the white count, we will continue the patient on IV cefazolin for another 24-hour repeat a CBC and a CRP with the a.m. level if overall improvement plan to finish therapy with oral Keflex Time with Patient: Less than 30
--- NOTE | 2022-10-06 16:27 | P.PN ---
Subjective This is a pleasant 9 years old male with past medical history of Atrial Fibrillation, Coronary Artery Disease (status post CABG and stent placement, Heart Failure, Hyperlipidemia, Hypertension, Osteoarthritis Upper extremity shaking with weakness. Patient states that she has jerking movement in both upper extremities, there were symmetrical and it looks like they stopped now when I see the patient, most likely it looks like myoclonic jerks, suspicious for extensive pain medication he was taking narcotics every 4 hours because of his recent left knee surgery on 09/24. Patient was counseled and he is agreeable to stop taking his pain medication although he was counseled to taper them. He is agreeable to stop or taper them gradually. He denies any other symptoms, no blurred vision or slurred speech, no headache or dizziness, no weakness or numbness. Also patient with no chest pain or dyspnea or coughing however he requested chute worker to evaluate him. Dr. Stack saw the patient and he recommended echocardiogram which is pending I discussed the case with the neurologist service they have already cleared the patient for discharge Vitals are stable He has mild leukocytosis of 13.6. Hemoglobin 10.4. Platelet count elevated 905 INR 0.9 BMP is unremarkable, magnesium 2.5, liver enzymes not significantly elevated bilirubin normal 0.8. Chest x-ray: No acute process. CT of the brain no acute intracranial process CTA of the head and neck: No acute process, no dissection or high-grade stenosis or aneurysm In the emergency room patient was given normal saline 100 mL per hour. 10/04/2022 I chronic jerks improved after stopping underwent the frequency of his pain medication. Echocardiogram was showing mild impaired LV function 45-50%. Patient was doing well from cardiology and nephrology service However patient developed left leg cellulitis, and was started on cefazolin, ESR and CRP mildly elevated. Continue with normal saline and lower the dose to 50 mL per hour. Patient continued on aspirin 81 mg Medications 10/05/2022 Patient left leg cellulitis improving I would say 50% improved however subtle completely resolved and I think he still needs IV antibiotic in case there is resistant bacteria. However cefazolin have been resolution of the infection. No knee arthritis. No chest pain or dyspnea. Discontinue IV fluids Check labs in the morning 10/06/2022 Left leg cellulitis is improving but not completely resolved also patient have evidence of leukocytosis, the meantime he feels the improvement but he agrees he is not ready to switch to oral antibiotics and discharge He is continued on cefazolin with plan to switch her to oral Keflex upon discharge No other new complaints, no chest pain, cardiology and neurology service or radicular the patient Possible discharge in 24-48 hours if he keeps improving Objective - Vital Signs Vital signs: Vital Signs Temp 97.8 F 10/06/22 14:00 Pulse 57 L 10/06/22 14:00 Resp 16 10/06/22 14:00 BP 138/67 10/06/22 14:00 Pulse Ox 97 10/06/22 14:00 FiO2 21 10/03/22 07:27 Intake & Output 10/05/22 10/06/22 10/06/22 18:59 06:59 18:59 Intake Total 236 500 118 Balance 236 500 118 Intake: Oral 236 500 118 Other: Voiding Method Toilet # Voids 1 2 - Exam GENERAL: The patient is alert and oriented x3, not in any acute distress. Well developed, well nourished. HEENT: Pupils are round and equally reacting to light. EOMI. No scleral icterus. No conjunctival pallor. Normocephalic, atraumatic. No pharyngeal erythema. No thyromegaly. CARDIOVASCULAR: S1 and S2 present. No murmurs, rubs, or gallops. PULMONARY: Chest is clear to auscultation, no wheezing or crackles. ABDOMEN: Soft, nontender, nondistended, normoactive bowel sounds. No palpable organomegaly. MUSCULOSKELETAL: No joint swelling or deformity. -EXTREMITIES: No cyanosis, clubbing, or pedal edema. Left knee surgical wound with a dressing in place. Improving Left leg is swelling and redness and tender ness NEUROLOGICAL: Gross neurological examination did not reveal any focal deficits. SKIN: No rashes. no petechiae. - Labs CBC & Chem 7: 10/06/22 05:58 10/04/22 04:49 Labs: Abnormal Lab Results - Last 24 Hours (Table) 10/06/22 Range/Units 05:58 WBC 12.51 H (4.50-10.00) X 10*3/uL RBC 3.05 L (4.40-5.60) X 10*6/uL Hgb 9.5 L (13.0-17.0) g/dL Hct 29.5 L (39.6-50.0) % RDW 24.6 H (11.5-14.5) % Plt Count 793 H (140-440) X 10*3/uL Plt Count Comment INCREASED A Absolute Nucleated RBC 0.11 H (0.00-0.00) X 10*3/uL Immature Gran # 0.26 H (0.00-0.04) X 10*3/uL Monocytes # 1.01 H (0.20-1.00) X 10*3/uL Eosinophils # 2.00 H (0.04-0.35) X 10*3/uL NRBC/100 WBC Diff 0.9 H (0.0-0.0) /100 WBCS Microbiology - Last 24 Hours (Table) 10/04/22 12:32 Blood Culture - Preliminary Blood No Growth after 48 hours Assessment and Plan Assessment: Left leg cellulitis Bilateral upper extremity shakiness, secondary to myoclonic jerks secondary to pain medication,unlikely TIA. Chronic atrial fibrillation Hypertension Hyperlipidemia History of coronary artery disease status post CABG and stent placement Chronic heart failure Status post left knee arthroplasty on Plan: Continue with cefazolin, ID team of case Continue with aspirin Neurolog and cardiology consult on the case, patient therefore discharged from their perspective Possible discharge today once echocardiogram is back and cleared by chute worker Discontinue on tapered pain medication, patient informed and he agrees
[2022-10-06] MEDS: DONEPEZIL 5 MG TAB PO SCH (20:11)
[2022-10-07 07:38] VITALS: BP 128/69; PULSE 63; RESP 16; TEMP 97.7
[2022-10-07] MEDS: ASPIRIN 81 MG PO SCH (08:36)
[2022-10-07] MEDS: METOPROLOL TARTRATE 25 MG TAB PO SCH (08:36)
[2022-10-07] MEDS: FUROSEMIDE 20 MG TAB PO SCH (08:36)
[2022-10-07] MEDS: ATORVASTATIN 40 MG TAB PO SCH (08:36)
[2022-10-07] MEDS: DOCUSATE 100 MG CAP PO SCH (08:36)
[2022-10-07] MEDS: FAMOTIDINE 20 MG TAB PO SCH (08:36)
[2022-10-07] MEDS: BACLOFEN 10 MG TAB PO SCH (08:37)
[2022-10-07] MEDS: HEPARIN SODIUM,PORCINE/PF 5,000 UNIT/0.5 ML SYRINGE SQ SCH (08:37)
[2022-10-07] MEDS: oxyCODONE-APAP 5-325MG 1 EACH TAB PO PRN (10:37)
[2022-10-07 10:40] LABS: Basophils # (A) 0.08 X 10*3/uL (0.00-0.10); Basophils % (A) 0.6 %; Eosinophils # (A) 2.02 X 10*3/uL (0.04-0.35); Eosinophils % (A) 16.3 %; HCT 29.2 % (39.6-50.0); HGB 9.3 g/dL (13.0-17.0); Immature Grans, Automated 2.8 %; Lymphocytes # (A) 2.76 X 10*3/uL (0.90-5.00); Lymphocytes % (A) 22.2 %; MCH 30.9 pg (27.0-32.0); MCHC 31.8 g/dL (32.0-37.0); Mean Platelet Volume 9.9 fL (9.5-12.2); Monocytes # (A) 0.98 X 10*3/uL (0.20-1.00); Monocytes % (A) 7.9 %; NRBC Per 100 WBC 0.9 /100 WBCS (0.0-0.0); Neutrophils # (A) 6.23 X 10*3/uL (1.80-7.70); Neutrophils % (A) 50.2 %; Platelet Count 766 X 10*3/uL (140-440); RBC 3.01 X 10*6/uL (4.40-5.60); RDW 24.4 % (11.5-14.5); WBC 12.42 X 10*3/uL (4.50-10.00)
[2022-10-07 10:58] LABS: Anion Gap 7.4 mmol/L (10.00-18.00); BUN/Creat Ratio 17.1 Ratio (12.00-20.00); Blood Urea Nitrogen 17.1 mg/dL (9.0-27.0); C Reactive Protein 1.6 mg/dL (0.00-0.80); Calcium 8.7 mg/dL (8.7-10.3); Carbon Dioxide 28.6 mmol/L (20.0-27.5); Non-African American GFR(CKD) 70.8 (60.0-200.0); Potassium 4.9 mmol/L (3.5-5.5)
--- NOTE | 2022-10-07 12:30 | P.PN ---
Subjective Progress Note Date: 10/07/22 Principal diagnosis: Left lower extremity cellulitis Patient is a 81 year old male with a past medical history significant for hypertension hyperlipidemia atrial fibrillation cardiac disease heart failure in this patient who is status post left total knee replacement performed by Dr. Nunez on 09/24/2022, presented to hospital with some myoclonic jerks thought to be related to medication overdose, also noticed to have increasing swelling redness to the left leg concerning for cellulitis On today's evaluation is 10/07/2022, the patient remains to be afebrile, the pa tient is breathing comfortably on room air, the patient denies chest pain shortness of cough no nausea no vomiting, the patient left lower extremity swelling redness has almost resolved and the patient denies having any pain to the left leg or knee area Objective - Vital Signs Vital signs: Vital Signs Temp 97.7 F 10/07/22 07:37 Pulse 63 10/07/22 07:37 Resp 16 10/07/22 07:37 BP 128/69 10/07/22 07:37 Pulse Ox 96 10/07/22 08:45 FiO2 21 10/07/22 08:45 Intake & Output 10/06/22 10/07/22 10/07/22 18:59 06:59 18:59 Intake Total 718 Balance 718 Intake: Oral 718 Other: Voiding Method Toilet # Voids 2 2 - Exam GENERAL DESCRIPTION: An elderly male lying in bed in no distress RESPIRATORY SYSTEM: Unlabored breathing , decreased breath sounds at bases HEART: S1 S2 regular rate and rhythm , ABDOMEN: Soft , no tenderness EXTREMITIES: Left lower extremity redness has almost resolved no significant redness or drainage to the left knee area - Labs CBC & Chem 7: 10/07/22 06:13 10/07/22 06:13 Labs: Abnormal Lab Results - Last 24 Hours (Table) 10/06/22 Range/Units 05:58 WBC 12.51 H (4.50-10.00) X 10*3/uL RBC 3.05 L (4.40-5.60) X 10*6/uL Hgb 9.5 L (13.0-17.0) g/dL Hct 29.5 L (39.6-50.0) % RDW 24.6 H (11.5-14.5) % Plt Count 793 H (140-440) X 10*3/uL Plt Count Comment INCREASED A Absolute Nucleated RBC 0.11 H (0.00-0.00) X 10*3/uL Immature Gran # 0.26 H (0.00-0.04) X 10*3/uL Monocytes # 1.01 H (0.20-1.00) X 10*3/uL Eosinophils # 2.00 H (0.04-0.35) X 10*3/uL NRBC/100 WBC Diff 0.9 H (0.0-0.0) /100 WBCS Microbiology - Last 24 Hours (Table) 10/04/22 12:32 Blood Culture - Preliminary Blood No Growth after 48 hours Assessment and Plan (1) Left leg cellulitis Current Visit: Yes Status: Acute Code(s): L03.116 - CELLULITIS OF LEFT LOWER LIMB SNOMED Code(s): 060482232 Plan: 1patient with a left lower extremity cellulitis in this patient who is status post left knee arthroplasty completed on 09/24/2022 at [facility] patient did have a erythema and warmth to the left lower extremity which is mostly diffused no evidence of any induration open wound or any drainage and minimal erythema to the middle part office left knee, every afternoon and recent surgery and a prosthetic knee will need to treat this cellulitis aggressively 2blood cultures currently pending 3 patient has shown clinical improvement the patient white count and CRP are trending down and culture has been negative in view of clinical response to cefazolin and we will finish therapy with oral Keflex prescription was sent to the pharmacy and close outpatient follow-up Time with Patient: Less than 30
--- NOTE | 2022-10-08 06:24 | P.DS ---
Providers Date of admission: 10/04/22 11:46 Attending physician: Marianela Fleming Consults: 10/02/22 22:20 Consult Physician Routine Consulting Provider: Disha Haddad Consult Reason/Comments: Possible TIA Do you want consulting provider notified?: Yes, Notify in am Consult Physician Routine Consulting Provider: Zee Knowles Consult Reason/Comments: Patient request Do you want consulting provider notified?: Yes, Notify in am 10/04/22 08:21 Consult Physician Routine Consulting Provider: Andrzej Sandoval Consult Reason/Comments: possible left knee infection Do you want consulting provider notified?: Yes 10/04/22 11:47 Consult Physician Urgent Consulting Provider: Nellie Chris Consult Reason/Comments: cellulitis rather than arthritis Do you want consulting provider notified?: Already Contacted Primary care physician: [facility] Course: Diagnoses Left leg cellulitis Bilateral upper extremity shakiness, secondary to myoclonic jerks secondary to pain medication,unlikely TIA. Chronic atrial fibrillation Hypertension Hyperlipidemia History of coronary artery disease status post CABG and stent placement Chronic heart failure Status post left knee arthroplasty on Hospital course: This is a pleasant 9 years old male with past medical history of Atrial Fibrillation, Coronary Artery Disease (status post CABG and stent placement, Heart Failure, Hyperlipidemia, Hypertension, Osteoarthritis Upper extremity shaking with weakness. Patient states that she has jerking movement in both upper extremities, there were symmetrical and it looks like they stopped now when I see the patient, most likely it looks like myoclonic jerks, suspicious for extensive pain medication he was taking narcotics every 4 hours because of his recent left knee surgery on 09/24. Patient evaluated by neurologist and cleared for discharge. Also rayon coner evaluated the patient, there was a remote history of atrial fibrillation however patient was not on anticoagulation and he follows up regularly with Dr. Knowles, he saw his rayon coner Dr. Knowles within one month prior to hospitalization. Patient was not on a blood thinner. However patient continued with aspirin upon discharge. Also patient was found to have left lower leg cellulitis and he was treated with antibiotic cefazolin, he showed interval improvement in his cellulitis significantly improved, and patient will be discharged on short course of oral antibiotic with Keflex per ID team recommendation would follow the patient closely. Patient today denies any chest pain or dyspnea, no nausea vomiting or diarrhea. No other urological or neurological complaints. Patient was cleared for discharge by all consultants including neurologist, rayon coner and infectious disease team. Also patient says that he was on aspirin at home. Problems and management plan were discussed with the patient and he verbalized understanding and acceptance Patient was found stable and can be discharged home in guarded prognosis however he needs follow-up as an outpatient. Patient was instructed to follow up with PCP Dr. Elise within one week and patient agrees Patient was instructed to follow up with his rayon coner Dr. Knowles in 1-[address] Chris in 1-2 weeks and he agrees Physical exam Gen: patient is a AAOx3, no distress CVS: S1-S2, RRR, no murmur Lungs: B/L CTA, no wheezing Abdomen: soft, no distention, no tenderness, positive bowel sounds -Extremity: no leg edema or induration. Left flexible it is significantly improved. Left knee surgical wound is closed and healing. No new swelling or tenderness or limitation of movement Time spent more than 35 minutes Patient Condition at Discharge: Stable Plan - Discharge Summary New Discharge Prescriptions: New Cephalexin [Keflex] 500 mg PO Q6HR 10 Days #40 cap Continue Acetaminophen Tab [Tylenol] 1,000 mg PO Q6HR PRN tab PRN Reason: Fever And/ Or Pain Nitroglycerin Sl Tabs [Nitrostat] 0.4 mg SUBLINGUAL Q5M PRN #25 tab PRN Reason: Chest Pain Baclofen [Lioresal] 5 mg PO TID Rosuvastatin [Crestor] 20 mg PO DAILY Furosemide [Lasix] 20 mg PO DAILY Famotidine [Pepcid] 20 mg PO BID Donepezil [Aricept] 5 mg PO HS Aspirin EC [Ecotrin] 325 mg PO DAILY Metoprolol Tartrate [Lopressor] 25 mg PO DAILY oxyCODONE HCL/ACETAMINOPHEN [oxyCODONE HCL/ACETAMINOPHEN 5-325] 1 tab PO Q4H PRN PRN Reason: Pain Sennosides [Senokot] 17.2 mg PO BID PRN PRN Reason: Constipation Multivitamins, Thera [Multivitamin (formulary)] 1 tab PO DAILY Discharge Medication List Acetaminophen Tab [Tylenol] 1,000 mg PO Q6HR PRN tab 04/19/20 [Rx] Nitroglycerin Sl Tabs [Nitrostat] 0.4 mg SUBLINGUAL Q5M PRN #25 tab 05/12/20 [Rx] Baclofen [Lioresal] 5 mg PO TID 10/02/22 [History] Donepezil [Aricept] 5 mg PO HS 10/02/22 [History] Famotidine [Pepcid] 20 mg PO BID 10/02/22 [History] Furosemide [Lasix] 20 mg PO DAILY 10/02/22 [History] Metoprolol Tartrate [Lopressor] 25 mg PO DAILY 10/02/22 [History] Rosuvastatin [Crestor] 20 mg PO DAILY 10/02/22 [History] oxyCODONE HCL/ACETAMINOPHEN [oxyCODONE HCL/ACETAMINOPHEN 5-325] 1 tab PO Q4H PRN 10/02/22 [History] Aspirin EC [Ecotrin] 325 mg PO DAILY 10/03/22 [History] Multivitamins, Thera [Multivitamin (formulary)] 1 tab PO DAILY 10/03/22 [History] Sennosides [Senokot] 17.2 mg PO BID PRN 10/03/22 [History] Cephalexin [Keflex] 500 mg PO Q6HR 10 Days #40 cap 10/07/22 [Rx] Follow up Appointment(s)/Referral(s): Zee Knowles MD [STAFF PHYSICIAN] - 10/23/22 3:15 pm Telly Mccurdy MD [Primary Care Provider] - 1-2 days (PLEASE CALL AND SCHEDULE APPOINTMENT.) Nellie Chris MD [STAFF PHYSICIAN] - 10/21/22 2:00 pm Patient Instructions/Handouts: Cephalexin (By mouth), Cellulitis (GEN), Heart Healthy Diet (DC) Activity/Diet/Wound Care/Special Instructions: Heart healthy diet Activity is restricted till you see your doctor Discharge Disposition: HOME WITH HOME HEALTH SERVICES
== END 2022-10-07 14:15 | disposition home health service (06) | DRG 603 ==
LOC: EC 19:23 → 6NMEDSUR 22:19 → OBSVTOIN 10-04 11:46 → UNDODISIN 10-05 13:59
PROVIDERS: ADMIT Internal Medicine; ATTEND Internal Medicine
DX: L03.116 Cellulitis of left lower limb (principal); I97.89 Other postprocedural complications and disorders of the circulatory system, not elsewhere classified; G25.2 Other specified forms of tremor; I11.0 Hypertensive heart disease with heart failure; I25.2 Old myocardial infarction; I25.10 Atherosclerotic heart disease of native coronary artery without angina pectoris; I48.0 Paroxysmal atrial fibrillation; I45.9 Conduction disorder, unspecified; M19.90 Unspecified osteoarthritis, unspecified site; T40.605A Adverse effect of unspecified narcotics, initial encounter; E78.5 Hyperlipidemia, unspecified; I50.9 Heart failure, unspecified; Z79.82 Long term (current) use of aspirin; Z79.899 Other long term (current) drug therapy; Z82.49 Family history of ischemic heart disease and other diseases of the circulatory system; Z87.891 Personal history of nicotine dependence; Z87.440 Personal history of urinary (tract) infections; Z88.5 Allergy status to narcotic agent; Z95.1 Presence of aortocoronary bypass graft; Z95.5 Presence of coronary angioplasty implant and graft; Z96.653 Presence of artificial knee joint, bilateral
CPT/HCPCS: 36415; 70450; 70496; 70498; 71046; 80048; 80053; 80061; 83036; 83735; 84484; 85025; 85610; 85652; 85730; 86140; 87040; 93005; 93306; 94760; 96360; 96361; 99285

== ENCOUNTER 2023-05-06 10:53 | Day surgery (SDC) | payer MEDICARE ==
[2023-05-01 15:59] VITALS: BMI 27.6
[2023-05-06] MEDS ORDERED: DEXAMETHASONE SOD PHOSPHATE 4 MG/ML 1 ML VIAL IV ONE (11:08)
[2023-05-06] MEDS ORDERED: HYDROmorphone 0.5 MG/0.5 ML SYRINGE IVP PRN (11:08)
[2023-05-06] MEDS ORDERED: LACTATED RINGERS 1,000 ML IV SCH (11:08)
[2023-05-06] MEDS ORDERED: LIDOCAINE 1% (10MG/ML) FOR IV START INTRADERMA PRN (11:08)
[2023-05-06] MEDS ORDERED: ONDANSETRON 4 MG/2 ML VIAL IVP ONE (11:08)
[2023-05-06] MEDS ORDERED: MIDAZOLAM 2 MG/2 ML VIAL IV PRN (11:08)
[2023-05-06 11:25] VITALS: TEMP 97.6
[2023-05-06] MEDS ORDERED: PROPOFOL 10 MG/ML 20 ML VIAL IV ONE (12:00)
[2023-05-06] MEDS ORDERED: LIDOCAINE 2% INJ 20 MG/ML (2 ML VIAL) ONE (12:00)
[2023-05-06] MEDS ORDERED: fentaNYL (PF) 50 MCG/ML 2 ML AMP ONE (12:00)
[2023-05-06 12:44] VITALS: RESP 16
[2023-05-06 13:00] LABS: Anisocytosis Moderate; Basophils % (A) 0 %; Eosinophils # (A) 0.8 k/uL (0-0.7); Eosinophils % (A) 8 %; HCT 38.5 % (39.0-53.0); HGB 12.4 gm/dL (13.0-17.5); Hypochromasia Slight; Lymphocytes # (A) 1.8 k/uL (1.0-4.8); Lymphocytes % (A) 20 %; MCH 31.8 pg (25.0-35.0); MCHC 32.3 g/dL (31.0-37.0); MCV 98.5 fL (80.0-100.0); Macrocytosis Moderate; Mean Platelet Volume 9.1; Monocytes # (A) 0.5 k/uL (0-1.0); Monocytes % (A) 6 %; Neutrophils # (A) 5.8 k/uL (1.3-7.7); Neutrophils % (A) 63 %; Platelet Count 940 k/uL (150-450); RBC 3.91 m/uL (4.30-5.90); RDW 22.7 % (11.5-15.5); Reticulocyte % 1.3 % (0.5-2.0); WBC 9.1 k/uL (3.8-10.6)
[2023-05-06 13:03] VITALS: BP 129/64; PULSE 63
[2023-05-06 13:33] LABS: Target Cells Present
--- NOTE | 2023-05-07 15:30 | OP ---
OPERATIVE REPORT DATE OF SERVICE : 05/06/2023 PROCEDURE PERFORMED: Bone marrow aspirate and biopsy. INDICATIONS: Thrombocytosis, rule out essential thrombocythemia. TECHNIQUE: After obtaining consent from the patient, the procedure was performed in the endoscopy suite, and general sedation and anesthesia performed by anesthesia team. The patient was put in the left lateral decubital position. The right posterior superior iliac crest was localized. Skin was prepped with ChloraPrep, all sterile procedures were followed. A 2 mL of 2% lidocaine was used for local anesthetic. Monoject needle was inserted, 20 mL aspirate and 2.5 cm core biopsy was obtained without any difficulties. Pressure applied afterwards. There was negligible blood loss. The patient tolerated procedure very well without any immediate complications. MMODL / IJN: [id number] /
== END 2023-05-06 14:00 | disposition home or self-care (01) ==
LOC: OR 10:53
PROVIDERS: ATTEND Internal Medicine Hematology & Oncology
DX: D47.3 Essential (hemorrhagic) thrombocythemia (principal)
CPT/HCPCS: 85025; 85045; 38222; J3010; J2704; J2001

== ENCOUNTER 2024-04-23 15:34 | Emergency (ER) | payer MEDICARE ==
[2024-04-23] MEDS ORDERED: LIDOCAINE 1%-EPI 1:100,000 20 ML VIAL ONE (15:57)
[2024-04-23] MEDS ORDERED: CEPHALEXIN 500MG STARTER PACK 4 CAP BTL ONE (16:48)
[2024-04-23] MEDS ORDERED: traMADol 50 MG STARTER PACK 3 TAB BTL ONE (16:48)
[2024-04-23] MEDS ORDERED: CEPHALEXIN 500 MG CAP ONE (16:49)
== END 2024-04-23 17:20 | disposition home or self-care (01) ==
LOC: EC 15:34
CPT/HCPCS: 99282

== ENCOUNTER 2024-04-24 09:27 | Emergency (ER) | payer MEDICARE | END 2024-04-24 11:30 | disposition home or self-care (01) | LOC: EC 09:27 ==

== ENCOUNTER → 2024-06-02 | Outpatient (CLI) | payer MEDICARE ==
--- NOTE | 2024-06-02 17:38 | XR ---
EXAMINATION TYPE: XR tibia fibula LT DATE OF EXAM: 06/02/2024 5:21 PM CLINICAL INDICATION: Male, 83 years old with history of L03.116 CELLULITIS OF LEFT LOWER LIMB; [facility] COMPARISON: 10/04/2022 TECHNIQUE: XR tibia fibula LT; examined in AP and lateral projections. FINDINGS: No evidence of any acute osseous pathology, or joint dislocation.. Post left knee arthropl asty with surgical clips present. Hardware appears intact. Soft tissue swelling without evidence for osseous erosion. IMPRESSION: Post knee arthroplasty changes without evidence for osseous erosion to suggest sesamoiditis. [facility], , 06/02/2024 5:36 PM
== END | disposition home or self-care (01) ==
LOC: RADXRMAIN 17:02
PROVIDERS: ATTEND Nurse Practitioner Family
DX: L03.116 Cellulitis of left lower limb